=== PATIENT | female | born 1990 | race Caucasian/White ===

== ENCOUNTER 2023-08-27 16:46 | Emergency (ER) | payer OTHER, SELFPAY ==
[2023-08-27 17:02] VITALS: BP 110/79; PULSE 76; RESP 16; TEMP 36.8; O2SAT 100
--- NOTE | 2023-08-27 17:50 | ED.URI ---
HPI - URI/Sore Throat General Chief Complaint: Upper Respiratory Infection Stated Complaint: Sore Throat, Exposure to Strep Time Seen by Provider: 08/27/23 17:50 History of Present Illness HPI Narrative: 33-year-old female presented for complaint of sore throat, fatigue, nasal congestion. Onset 5 days. Endorses all kids have strep throat. She denies cough, shortness of breath, wheezing, nausea, vomiting, diarrhea, fevers or chills. Related Data Home Medications Medication Instructions Recorded Confirmed norethindrone 1 mg-ethinyl 1 tablet PO DAILY 08/27/23 08/27/23 estradiol 10 mcg (24)-iron 10 mcg(2) tablet (Lo Loestrin Fe) Allergies Allergy/AdvReac Type Severity Reaction Status Date / Time No Known Drug Allergies Allergy Unknown Other Verified 08/27/23 17:09 Review of Systems Review of Systems: CONSTITUTIONAL: Denies body aches, fever, chills, or sweats. EYES: Denies visual changes, redness, or discharge. ENT: Reports rhinorrhea, congestion, sore throat CARDIOVASCULAR: Denies chest pain, palpitations, or edema. RESPIRATORY: Denies dyspnea. GASTROINTESTINAL: Denies abdominal pain, nausea, vomiting, or diarrhea. SKIN: Denies rash, itching, or wounds. MUSCULOSKELETAL: Denies back pain, joint pain, or myalgia. NEUROLOGIC: Denies headache PMFSH Past Medical History Medical History (Updated 08/27/23 @ 17:56 by Larissa Hess APRN) POTS (postural orthostatic tachycardia syndrome) Exam Narrative: GENERAL: well-appearing, no acute distress. EYES: conjunctivae clear ENT: Mucous membranes moist. TMs pearly strickland with normal light reflex bilaterally; no tragal tenderness. Oropharynx erythematous without lesions. Tonsils absent. No drooling, no hoarseness, no trismus, uvula midline. No tripod positioning, hot potato voice, or soft palate swelling. NECK: Supple. No lymphadenopathy CHEST: Clear to auscultation, breath sounds equal. No respiratory distress, speaks in full sentences. HEART: Regular rate and rhythm. No murmur heard. SKIN: Warm, dry, no rash. NEURO: Alert and oriented x3. Course Course Emergency Course: Patient is aware of diagnosis, understands and agrees to treatment plan. Anticipatory guidance given. Patient agrees to follow-up as directed and is aware of reasons to seek care at the emergency department. Portions of this record may have been created with voice recognition software Level of Care: Express Care Visit Vital Signs Vital signs: Vital Signs Temperature 98.3 F 08/27/23 17:02 Pulse Rate 76 08/27/23 17:02 Respiratory Rate 16 08/27/23 17:02 Blood Pressure 110/79 08/27/23 17:02 Pulse Oximetry 100 08/27/23 17:02 Temperature 98.3 F 08/27/23 17:02 Pulse Rate 76 08/27/23 17:02 Respiratory Rate 16 08/27/23 17:02 Blood Pressure 110/79 08/27/23 17:02 Pulse Oximetry 100 08/27/23 17:02 Oxygen Delivery Room Air 08/27/23 17:06 MDM - URI/Sore Throat MDM Narrative Medical decision making narrative: NEG strep result reviewed with pt. Advise supportive treatments. Patient is appropriate for outpatient treatment and follow-up. Differential Diagnosis Differential diagnosis: Likely upper respiratory infection, viral infection and pharyngitis Lab Data Labs: Influenza A Screen Negative Reference Range: Negative Influenza B Screen Negative Reference Range: Negative Strep Screen Presumptive Negative *(Reference Range: Negative)* Discharge Plan Discharge Clinical Impression: Viral infection Patient Disposition: Home, Self-Care Condition: Stable Instructions: Antibiotic Form, Upper Respiratory Infection (ED) Additional Instructions: Rapid strep swab was negative today You will be notified in a few days if the culture comes back posi
== END 2023-08-27 17:58 | disposition home or self-care (01) ==
PROVIDERS: Emergency Provider Nurse Practitioner Family; PCP Physician Assistant
DX: B34.9 Viral infection, unspecified (principal); Z20.822 Contact with and (suspected) exposure to COVID-19
CPT/HCPCS: 87081; 87426; 87804; 87880; 99203; C9803; G0463

== ENCOUNTER → 2023-09-08 08:49 | Outpatient (CLI) | payer OTHER, SELFPAY ==
--- NOTE | ~2023-09-08 | US_ITS ---
Pelvic ultrasound. Clinical History: Pelvic pain Technique: Realtime transabdominal and transvaginal scanning of the pelvis was performed. Color flow Doppler and Doppler spectral analysis were performed. Findings: The uterus is retroverted.. The endometrial stripe has a thickness of 3 mm. No focal mass is identified. The right ovary measures 3.3 x 2.3 x 3.1 cm. No significant right ovarian or adnexal mass is seen. The left ovary measures 2.6 x 1.8 x 2.5 cm. No significant left ovarian or adnexal mass is seen. There is no evidence of free fluid in the cul de sac. Impression: Unremarkable pelvic ultrasound. Reviewed, dictated and finalized at location . [employer] Impression: Unremarkable pelvic ultrasound.
== END ==
PROVIDERS: PCP Advanced Practice Midwife; Visit Provider Advanced Practice Midwife
DX: R10.2 Pelvic and perineal pain (principal)
CPT/HCPCS: 76830; 76856

== ENCOUNTER 2023-11-23 12:11 | Emergency (ER) | payer OTHER, SELFPAY ==
[2023-11-23 12:21] VITALS: BP 111/80; PULSE 73; RESP 16; TEMP 37.3; O2SAT 99
--- NOTE | 2023-11-23 12:21 | ED.EYEPROB ---
HPI - Eye Problem General Chief complaint: Eye Problems Stated complaint: EYE REDNESS/PAIN Source: patient, RN notes reviewed and old records reviewed Mode of arrival: ambulatory Limitations: no limitations History of Present Illness HPI Narrative: 33-year-old female presents to [facility] with complaints right eye irritation, redness, watering, light sensitive this started yesterday after removing contact. Patient states feels like something is in eye. Patient denies visual changes. Related Data Home Medications Medication Instructions Recorded Confirmed norethindrone 1 mg-ethinyl 1 tablet PO DAILY 11/23/23 11/23/23 estradiol 10 mcg (24)-iron 10 mcg(2) tablet (Lo Loestrin Fe) Allergies Allergy/AdvReac Type Severity Reaction Status Date / Time No Known Drug Allergies Allergy Unknown Other Verified 11/23/23 12:20 Review of Systems Constitutional: Constitutional: Reports no additional constitutional complaints, Denies body ache(s), Denies chills, Denies fatigue, Denies fever(s) and Denies headache(s) Eyes: Eyes: Reports no additional eye complaints, Denies blurry vision, Denies exophthalmos, Denies change in vision, Denies decreased night vision, Denies diplopia, Denies eye discharge, Reports irritation, Denies loss of peripheral vision, Reports eye pain and Reports requires corrective lenses ENT: Reports system reviewed and no additional complaints, except as documented, Denies vertigo, Denies dizziness, Denies ear discharge, Denies otalgia, Denies facial pain, Denies headache(s), Denies nasal congestion, Denies nasal discharge, Denies sinus pain, Denies sinus pressure and Denies sore throat Cardiovascular: Cardiovascular: Reports no additional cardiovascular complaints, Denies chest pain, Denies chest pain at rest, Denies rapid heart rate and Denies dyspnea Respiratory: Respiratory: Reports no additional respiratory complaints, Denies chest congestion, Denies cough, Denies pain on inspiration, Denies pain with cough and Denies dyspnea Gastrointestinal: Gastrointestinal: Denies abdominal pain, Denies diarrhea, Denies nausea and Denies vomiting Integumentary/Breasts: Skin/Breast: Denies rash Neurologic: Reports system reviewed and no additional complaints, except as documented, Denies vertigo, Denies dizziness and Denies headache(s) Endocrine: Endocrine: Denies fatigue [facility] Past Medical History Medical History (Updated 11/23/23 @ 12:34 by Sherry Sam APRN) POTS (postural orthostatic tachycardia syndrome) Comments At the time of my signature, I reviewed and agree with the nursing past medical, surgical, social, and family history. There is no relevant family history pertinent to the patient complaint. Exam Const: General: cooperative, healthy appearing, no acute distress and well nourished Nutritional Appearance: well nourished Orientation/consciousness: patient oriented x3 Limitations: no limitations HENMT: Head: normal to inspection and normocephalic Ears: external ears normal Face/Nose/Sinus: normal facial exam Face and sinus: normal facial exam Mouth: Yes Normal oral and palatal mucosa present, Yes oropharynx normal and Yes moist mucous membranes Eyes: Alignment and Position: alignment normal Periorbital: periorbital findings normal Eyelids: eyelids normal Conjunctivae: conjunctival abnormality right ( Erythematous) Sclera: sclerae normal Cornea: corneas abnormal on the right abrasion central and fluorescein used Pupils: Equal, round and reactive pupils present Resp: Effort & Inspection: normal respiratory effort, able to speak in complete sentences, no audible wheezes, no cough, no respiratory distress and no retractions Auscultation: clear to auscultation bilaterally, no crackles, no rales, no rhonchi and no wheezes Cardio: Rate: regular rate Rhythm: regular rhythm Skin: General skin exam: normal color and no rashes or lesions noted Neuro: General: patient oriented x3 Cranial
[2023-11-23] MEDS: TETRACAINE HCL 0.5% OPHTH SOLN 4 ML BTL 1 DROP AFFCTD EYE (12:25)
== END 2023-11-23 12:40 | disposition home or self-care (01) ==
PROVIDERS: Emergency Provider Registered Nurse; PCP Physician Assistant
DX: S05.01XA Injury of conjunctiva and corneal abrasion without foreign body, right eye, initial encounter (principal); X58.XXXA Exposure to other specified factors, initial encounter
CPT/HCPCS: 99213; A9270; G0463

== ENCOUNTER 2023-12-05 09:08 | Emergency (ER) | payer SELFPAY ==
--- NOTE | 2023-12-05 09:12 | ED.URI ---
HPI - URI/Sore Throat General Chief Complaint: Upper Respiratory Infection Stated Complaint: Fever/Sore Throat Time Seen by Provider: 12/05/23 09:12 Source: patient, RN notes reviewed and old records reviewed Mode of arrival: ambulatory Limitations: no limitations History of Present Illness HPI Narrative: 33-year-old female to Express Care for complaint headache, body aches, subjective fever, sore throat, and ausea that began yesterday. Patient denies vomiting, diarrhea, ear pain. Patient denies pertinent medical history. Patient able to tolerate fluids by mouth. Related Data Home Medications Medication Instructions Recorded Confirmed norethindrone 1 mg-ethinyl 1 tablet PO DAILY 11/23/23 12/05/23 estradiol 10 mcg (24)-iron 10 mcg(2) tablet (Lo Loestrin Fe) Allergies Allergy/AdvReac Type Severity Reaction Status Date / Time ofloxacin Allergy Itching Verified 12/05/23 09:18 Review of Systems Review of Systems: All systems reviewed & are unremarkable except as noted in HPI and below Constitutional: Constitutional: Reports as per HPI, Reports difficulty sleeping and Reports fever(s) ( Subjective) Eyes: Eyes: Reports no additional eye complaints ENT: Reports as per HPI and Reports sore throat Cardiovascular: Cardiovascular: Reports no additional cardiovascular complaints, Denies chest pain and Denies dyspnea Respiratory: Respiratory: Reports no additional respiratory complaints, Denies cough and Denies dyspnea Gastrointestinal: Gastrointestinal: Reports nausea Musculoskeletal: Musculoskeletal: Reports as per HPI and Reports myalgias Neurologic: Reports system reviewed and no additional complaints, except as documented Psychiatric: Psychiatric: Reports no additional psychiatric complaints PMFSH Past Medical History Medical History POTS (postural orthostatic tachycardia syndrome) Comments At the time of my signature, I reviewed and agree with the nursing past medical, surgical, social, and family history. There is no relevant family history pertinent to the patient complaint. Exam Const: General: cooperative, no acute distress, well developed, alert, ill appearing, well groomed and well nourished Nutritional Appearance: well nourished Orientation/consciousness: patient oriented x3 Limitations: no limitations HENMT: Head: normal to inspection Ears: external ears normal Face/Nose/Sinus: Normal external nose present, Normal nares present, normal facial exam, No erythema and No edema Face and sinus: normal facial exam, no erythema and no edema Mouth: Yes Normal oral and palatal mucosa present Throat: posterior oropharynx abnormal erythema and no uvular edema Eyes: General: appearance normal, both eyes and all related structures Neck: Neck: normal visual inspection, full ROM and no meningeal signs Lymphatic: no lymphadenopathy noted and no lymphedema noted Chest: Chest palpation & inspection: normal inspection of the chest Resp: Effort & Inspection: normal respiratory effort and able to speak in complete sentences Auscultation: clear to auscultation bilaterally Cardio: Jugular venous distension: no JVD Rate: regular rate Rhythm: regular rhythm Back/Spine/Pelvis: Cervical Spine: cervical ROM normal Skin: General skin exam: normal color, no rashes or lesions noted and turgor normal Neuro: General: patient oriented x3, gait normal, moves all extremities and no meningeal signs Speech: normal speech Gait exam (Neuro): Normal gait present Extrem: General: normal to inspection, full ROM and capillary refill normal Psych: Appearance: grossly normal and well kempt Course Course Emergency Course: Some parts of this dictation were generated by voice recognition software and may contain typographical and/or grammatical inaccuracies. Level of Care: Express Care Visit Vital Signs Vital signs: Vital Signs Temperature 36.9 C
[2023-12-05 09:19] VITALS: BP 108/69; PULSE 70; RESP 16; TEMP 36.9; O2SAT 100
== END 2023-12-05 10:02 | disposition home or self-care (01) ==
PROVIDERS: Emergency Provider Nurse Practitioner Family; PCP Physician Assistant
DX: J06.9 Acute upper respiratory infection, unspecified (principal); Z20.822 Contact with and (suspected) exposure to COVID-19
CPT/HCPCS: 87081; 87426; 87804; 87880; 99213; G0463

== ENCOUNTER 2024-08-21 01:44 | Emergency (ER) | payer BC, SELFPAY ==
--- NOTE | ~2024-08-21 | CT_ITS ---
EXAMINATION: CT abdomen pelvis w con DATE: 08/21/2024 03:39 INDICATION: Generalized abdominal pain. TECHNIQUE: Computed tomography (CT) of the abdomen and pelvis was performed with 100 mL Omnipaque 350 intravenous contrast. Automated exposure control and iterative reconstruction technique were employe d. The dose-length product was 429.25 mGy-cm. COMPARISON: CT abdomen and pelvis 02/22/2010 FINDINGS: The visualized portions of the lung bases demonstrate minimal atelectasis on the right. No pleural effusion. The heart size is normal. No pericardial effusion. The liver, gallbladder, spleen, pancreas, and adrenal glands are normal. There are cysts in the kidneys measuring up to 10 mm on the right. There is a 3.2 cm cyst in left ovary. There are no dilated loops of bowel. The appendix is nor mal. There are no pathologically enlarged lymph nodes. There is no free intraperitoneal fluid. The ruba jose ernique are unremarkable. IMPRESSION: 1. 3.2 cm cyst in left ovary, likely a follicular cyst. Reviewed, dictated and finalized at location A. T LEASER
[2024-08-21 01:52] VITALS: BP 106/58; PULSE 66; RESP 18; TEMP 36.5; O2SAT 100
[2024-08-21 02:36] LABS: Basophils Percent Auto 0.2 % (0.2-1.2); Eosinophils Absolute Auto 0.1 K/mm3 (0-0.3); Eosinophils Percent Auto 1.3 % (0-4.4); Hematocrit 36.2 % (37.0-47.0); Hemoglobin 12.6 g/dL (12.0-15.0); Immature Granulocyte Absolute 0.03 K/mm3 (0.00-0.031); Immature Granulocyte Percent A 0.3 % (0-0.5); Lymphocytes Percent Auto 21.6 % (18.3-44.2); Mean Corpuscular HGB Conc 34.8 g/dl (32-36); Mean Corpuscular Hemoglobin 32.2 pg (26-34); Mean Corpuscular Volume 92.6 fl (80-100); Mean Platelet Volume 9.6 fl (7.4-10.4); Monocytes Absolute Auto 0.7 K/mm3 (0.1-0.6); Monocytes Percent Auto 6.9 % (2.6-8.5); Neutrophils Absolute Auto 7.4 K/mm3 (1.3-6.7); Neutrophils Percent Auto 69.7 % (45.5-73.1); Platelet Count Result 230 k/mm3 (150-375); Red Blood Count 3.91 M/mm3 (4.2-5.4); Red Cell Distribution Width 11.7 % (11.5-14.5); White Blood Count 10.7 K/mm3 (4.5-10.0)
[2024-08-21 02:48] LABS: Alanine Aminotransferase 15 U/L (6-35); Albumin Level 3.9 g/dL (3.5-5.1); Alkaline Phosphatase 45 U/L (38-126); Anion Gap 5 mmol/L (4-12); Aspartate Amino Transferase 22 U/L (14-36); Bilirubin,Total 0.5 mg/dL (0.2-1.3); Blood Urea Nitrogen 8 mg/dL (7-17); Calcium 8.6 mg/dL (8.4-10.2); Carbon Dioxide 24 mmol/L (22-30); Chloride 106 mmol/L (98-107); Estimated CRCL calculation 101 ml/min; Estimated Glomerular Filt Rate > 60; Glucose 100 mg/dL (65-110); Lipase 76 U/L (23-300); Potassium 3.7 mmol/L (3.4-5.0); Sodium 135 mmol/L (137-145)
[2024-08-21] MEDS: SODIUM CHLORIDE 0.9% IV 2,000 ML 999 ML IV CONT (03:09)
[2024-08-21] MEDS: KETOROLAC 15 MG/ML VIAL (*BKC) IV PUSH (03:10)
[2024-08-21] MEDS: DICYCLOMINE HCL INJ 20 MG/2 ML VIAL IM (03:10)
[2024-08-21 03:15] LABS: BEDSIDEPREGUCG Negative (Negative)
--- NOTE | 2024-08-21 03:19 | ED.GENADULT ---
HPI - General Adult General Chief complaint: Abdominal Pain Stated complaint: Severe abd pain Time Seen by Provider: 08/21/24 02:04 History of Present Illness HPI narrative: This is a 34-year-old female with history of POTS presenting with abdominal pain. Patient says that last night. she started developed which she describes as severe gas pains. She feels sharp pain that moves around her stomach. She has not been able have a bowel movement or passed gas in the last 24 hours. No history of small-bowel obstructions. No nausea or vomiting. No abdominal surgeries in the past. Last bowel movement was morning. Related Data Home Medications ?Medication ?Instructions ?Recorded ?Confirmed ?Last Taken ?Type norethindrone 1 mg-ethinyl 1 tablet PO DAILY 11/23/23 12/05/23 Unknown History estradiol 10 mcg (24)-iron 10 mcg(2) tablet (Lo Loestrin Fe) Allergies Allergy/AdvReac Type Severity Reaction Status Date / Time Gadolinium-Containing Allergy Hives Verified 08/21/24 01:57 Contrast Medi ofloxacin Allergy Itching Verified 08/21/24 01:57 [facility] Past Medical History Medical History POTS (postural orthostatic tachycardia syndrome) Exam Narrative: APPEARANCE: No apparent distress. Head: atraumatic. EYES: EOMI, NOSE: Atraumatic NECK: Trachea midline RESPIRATORY: No increased rate of breathing, CTAB CARDIOVASCULAR: RRR, ABDOMINAL: Diffuse abdominal tenderness, soft no guarding rebound, no cva tenderness MUSCULOSKELETAl: No obvious deformities NEURO: Alert. Moving 4/4 extremities SKIN:: Warm, dry. Normal color PSYCHIATRIC: Normal affect Course Vital Signs Vital signs: Vital Signs Temperature 97.7 F 08/21/24 01:52 Pulse Rate 66 08/21/24 01:52 Respiratory Rate 18 08/21/24 01:52 Blood Pressure 106/58 L 08/21/24 01:52 Pulse Oximetry 100 08/21/24 01:52 Oxygen Delivery Room Air 08/21/24 01:52 Temperature 97.7 F 08/21/24 01:52 Pulse Rate 66 08/21/24 01:52 Respiratory Rate 18 08/21/24 01:52 Blood Pressure 106/58 L 08/21/24 01:52 Pulse Oximetry 100 08/21/24 01:52 Oxygen Delivery Room Air 08/21/24 01:52 Medical Decision Making [facility] Narrative Medical decision making narrative: -Course: 34-year-old female presenting with 1 day of diffuse abdominal pain. Laboratory studies within normal limits. Vital signs stable. Abdomen is soft although she notes diffuse tenderness CT showed no evidence of a bowel obstruction, normal appendix and a left ovarian cyst. UTI is indicative infection and patient notes she has had dysuria. Patient will be discharged on MiraLax for constipation and Keflex for UTI. On re-evaluation the patient was sleeping. Patient notes she still has some abdominal discomfort and was offered pain medication but declined. Patient will be discharged with primary care follow-up and given return precautions for severe abdominal pain, abdominal distension fevers or inability to have bowel movement or pass gas. -DDX includes but is not limited to: Constipation, small-bowel obstruction, IBS -Co-morbidities complicating care: POTS -Independent interpretation of studies: labs are normal -Interventions:Normal saline, Toradol, Bentyl -Shared decision making / Disposition: Discharge -RX MiraLax, Keflex Vital Signs Vital Signs: Vital Signs Temperature 97.7 F 08/21/24 01:52 Pulse Rate 66 08/21/24 01:52 Respiratory Rate 18 08/21/24 01:52 Blood Pressure 106/58 L 08/21/24 01:52 Pulse Oximetry 100 08/21/24 01:52 Oxygen Delivery Room Air 08/21/24 01:52 Temperature 97.7 F 08/21/24 01:52 Pulse Rate 66 08/21/24 01:52 Respiratory Rate 18 08/21/24 01:52 Blood Pressure 106/58 L 08/21/24 01:52 Pulse Oximetry 100 08/21/24 01:52 Oxygen Delivery Room Air 08/21/24 01:52 Lab Data 08/21/24 02:30 08/21/24 02:30 Labs: Lab Results 08/21/24 08/21/24 08/21/24 Range/Units 02:30 03:13 03:13 WBC 10.7 H (4.5-10.0) K/mm3 RBC 3.91 L (4.2-5.4) M/mm3 Hgb 12.6 (12.0-15.0) g/dL Hct 36.2 L (37.0-47.0) % MCV 92.6 (80-100) fl MCH 32.2 (26-34) pg MCHC 34.8 (32-36) g/dl RDW 11.7 (11.5-14.5) % Plt Count 230 (150-375) k/mm3 MPV 9.6 (7.4-10.4) fl Immature Gran % (Auto) 0.3 (0-0.5) % Neut % (Auto) 69.7 (45.5-73.1) % Lymph % (Auto) 21.6 (18.3-44.2) % Borden % (Auto) 6.9 (2.6-8.5) % Eos % (Auto) 1.3 (0-4.4) % Baso % (Auto) 0.2 (0.2-1.2) % Lymph # (Auto) 2.30 (0.9-3.2) K/mm3 Borden # (Auto) 0.7 H (0.1-0.6) K/mm3 Eos # (Auto) 0.1 (0-0.3) K/mm3 Baso # (Auto) 0.0 (0.0-0.1) K/mm3 Abs Immat Gran (auto) 0.03 (0.00-0.031) K/mm3 Absolute Neuts (auto) 7.4 H (1.3-6.7) K/mm3 Absolute Nucleated RBC 0.000 (0.0-0.012) K/mm3 Nucleated RBC % 0.0 (0.0-0.2) % Sodium 135 L (137-145) mmol/L Potassium 3.7 (3.4-5.0) mmol/L Chloride 106 (98-107) mmol/L Carbon Dioxide 24 (22-30) mmol/L Anion Gap 5 (4-12) mmol/L BUN 8 (7-17) mg/dL Creatinine 0.70 (0.7-1.0) mg/dL Estim Creat Clear Calc 101 ml/min Estimated GFR > 60 (59 - ) Glucose 100 (65-110) mg/dL Calcium 8.6 (8.4-10.2) mg/dL Total Bilirubin 0.5 (0.2-1.3) mg/dL AST 22 (14-36) U/L ALT 15 (6-35) U/L Alkaline Phosphatase 45 (38-126) U/L Total Protein 7.0 (6.3-8.2) g/dL Albumin 3.9 (3.5-5.1) g/dL Lipase 76 (23-300) U/L Urine Color Yellow (Yellow) Urine Appearance Cloudy H (Clear) Urine pH 6.5 (5.0-9.0) Ur Specific [place] 1.016 (1.001-1.035) Urine Protein Negative (Negative) mg/dL Urine Glucose (UA) Negative (Negative) mg/dL Urine Ketones 1+ H (Negative) mg/dL Ur Blood (Man) Negative (Negative) Urine Nitrate Negative (Negative) Urine Bilirubin Negative (Negative) Urine Urobilinogen 0.2 (<2.0) mg/dL Add Ur Microanalysis Reviewed Leukocyte Esterase Rfl 2+ H (Negative) THERESE/UL Urine RBC 6-10 H (0-2) /hpf Urine WBC 21-50 H (0-3) /hpf Ur Squamous Epith Cells Few (Few) /hpf Urine Bacteria 1+ H /hpf Urine Casts 3-5 Urine Mucus Present /lpf POC Urine HCG, Qual Negative Negative (Negative) Discharge Plan Discharge Clinical Impression: Constipation Patient Disposition: Home, Self-Care Condition: Stable Instructions: Antibiotic Form, Abdominal Pain (ED) Additional Instructions: You were seen in the emergency department for abdominal pain. Your CT abdomen pelvis did not show a small bowel obstruction at this time. Please trial a course of MiraLax. You can also use [id number] suppositories or enemas if needed. You have a UTI. Please complete a course of Keflex. If you develop fevers, abdominal distension, nausea vomiting or severe abdominal pain please return to the ED for re-evaluation. Patient Language: Malaysian Prescriptions: New cephalexin 500 mg capsule 500 mg PO Q12H Qty: 10 0RF polyethylene glycol 3350 [Miralax] 17 gram/dose powder 17 g PO DAILY Qty: 119 0RF No Action Lo Loestrin Fe 1 mg-10 mcg (24)/10 mcg (2) tablet 1 tablet PO DAILY Follow-up/Referrals: UNKNOWN,DOCTOR [Primary Care Provider] -
[2024-08-21 03:33] LABS: Add Urine Microscopic? YES; Appearance Urine Cloudy (Clear); Bacteria Urine 1+ /hpf; Bilirubin Urine Negative (Negative); Blood Urine Negative (Negative); Color Urine Yellow (Yellow); Glucose Urine UA Negative (Negative); Ketones Urine 1+ mg/dL (Negative); Leukocyte Esterase Ur 2+ LEU/UL (Negative); Mucus Urine Present /lpf; Need Manual Microscopic Reviewed; Nitrate Urine Negative (Negative); Protein Urine Negative (Negative); Specific Grav Ur 1.016 (1.001-1.035); Squamous Epithelial Cell Urine Few /hpf (Few); Urobilinogen Urine 0.2 mg/dL (<2.0); WBC Urine 21-50 /hpf (0-3); pH Urine 6.5 (5.0-9.0)
[2024-08-21 05:51] VITALS: BP 100/56; PULSE 70; RESP 18; O2SAT 100
--- OUTSIDE RECORDS SUMMARY | 2024-08-28 02:23 | XMS_ITS | Clinical Summary ---
Author Organization [facility] [email or web address] Address [address] [place] [address] Care Team Providers Care Fitting Room Maintenance Mechanic Name Role Phone Unknown, Provider Unavailable Unavailable Julia Quiles MD Unavailable [phone] Catie Cosme Primary Care Provider [phone] Source Comments [facility],non-owned Affiliates and Associated Physician Practices is amultiple site organization consisting of ambulatory clinics and hospital sitesin [place], [place], [place] and [place]. This disclosure is being madepursuant to the Care Everywhere program and may not contain all information available regarding this patient. Last updated 18.[facility] Allergies Active Allergy Reactions Criticality Noted Date Comments Contrast-Gadolinium Agents For Mri Urticaria,Itching,Ra sh Medium 03/01/2023 Pt received Prohance 16ml. Itchy throat, rash, and hives developed within a few minutes. Dr Hairston examined patient. Patient held for 30 minutes, no worsening symptoms. 06/06/23-pt completed MRI/MRA Brain & Neck w/wo using Mulithance MRI contast- premedicated 13 hour regimen successfully with no issues Pt received Prohance 16ml. Itchy throat, rash, and hives developed within a few minutes. Dr Hairston examined patient. Patient held for 30 minutes, no worsening symptoms. 06/06/23-pt completed MRI/MRA Brain & Neck w/wo using Mulithance MRI contast- premedicated 13 hour regimen successfully with no issues Pt received Prohance 16ml. Itchy throat, rash, and hives developed within a few minutes. Dr Hairston examined patient. Patient held for 30 minutes, no worsening symptoms. 06/06/23-pt completed MRI/MRA Brain & Neck w/wo using Mulithance MRI contast- premedicated 13 hour regimen successfully with no issues Ofloxacin Other 04/06/2024 Hives Medications * Be aware that medications may not be up to date on this document. Alwaysverify current medications with the patient. Medication Sig Dispensed Refills Start Date End Date Status Multiple Minerals-Vitamins (CALCIUM & VIT D3 BONE HEALTH PO) Take by mouth once daily Active Lo Loestrin Fe 1 MG-10 MCG / 10 MCG tablet Take 1 (one) tablet by mouth once daily Active multivitamin daily tablet Take 1 (one) tablet by mouth daily with food Active propranolol (Inderal) 10 MG tablet Take 1 (one) tablet by mouth 2 times daily 120 tablet 5 04/06/2024 Active predniSONE (Deltasone) 20 MG tablet Take 2 tablets by mouth 1 day prior to procedure and 2 tablets day of procedure 4 tablet 04/28/2024 Active Active Problems Problem Noted Date Diagnosed Date H/O seasonal allergies 04/06/2024 COVID-19 09/01/2020 Overview (04/06/2024): Spring 2020,01/2023 Family History Medical History Relation Name Comments Other Brother Childhood RA,An emia in his teens,Long Covid, Other Father Thyroid disease ,Asthma,Fibromyalgia, Other Mother HTN, Other Sister Heart failure a fter a viral infection, Relation Name Status Comments Brother Alive Father Alive Mother Alive Sister Social History Tobacco Use Types Packs/Day Years Used Date Smoking Tobacco: Never Smokeless Tobacco: Never Tobacco Cessation:Counseling Given: Not Answered Alcohol Use Standard Drinks/Week Comments Never 0 (1 standard drink = 0.6 oz pur e alcohol) Sex and Gender Information Value Date Recorded Sex Assigned at Not on file Gender Identity Not on file Sexual Orientation Not on file Last Filed Vital Signs Vital Sign Reading Time Taken Comments Blood Pressure 124/75 04/06/2024 9:42 AM CDT Pulse 81 04/06/2024 9:42 AM CDT Temperature 37.1 ??C (98.8 ??F) 10/05/2018 5:59 PM CS T Respiratory Rate 16 10/05/2018 5:59 PM RESEARCH DIRECTOR Oxygen Saturation 98% 10/05/2018 5:59 PM RESEARCH DIRECTOR Inhaled Oxygen Concentration - - Weight 72.6 kg (160 lb) 04/06/2024 9:42 AM CDT Height 175.3 cm (5' 9 ) 04/06/2024 9:42 AM CDT Body Mass Index 23.63 04/06/2024 9:42 AM CDT Plan of Treatment Upcoming Encounters Date Type Department Care Team (Late st Contact Info) Description 10/07/2024 10:40 AM RESEARCH DIRECTOR Office Visit [facility] Health Neurosciences [address] [place] [id number] Julia Quiles MD [address] [place] [phone] Health Maintenance Due Date Last Done Comments PAP SMEAR 1989 PNEUMOCOCCAL VACCINE (1 of 2 - PCV) 1995 HIV SCREENING 2004 HEPATITIS C SCREENING 04/01/2007 DTAP/TDAP/TD VACCINES (1 - Tdap) 2008 HEPATITIS B VACCINE (1 of 3 - 19+ 3-dose series) 2008 DEPRESSION SCREENING 09/01/2023 COVID-19 VACCINE (1 - 2023-2 5 season) 2024 INFLUENZA VACCINE (#1) 2024 , 07/05/2016 ZOSTER VACCINE (1 of 2) 2039 HIB VACCINE Aged Out No longer eligi ble based on patient's age to complete this topic HPV VACCINE Aged Out No longer eligi ble based on patient's age to complete this topic MENINGOCOCCAL VACCINE Aged Out No marce aneudy eligible based on patient's age to complete this topic Care Teams Fitting Room Maintenance Mechanic Relationship Specialty Start Date End Date aBCatie [address] [place] [phone] PCP - General 05/19/24 Unknown, Provider 10/19/16 Julia Quiles MD [address] [place] [address] [place], [place] [address] Neurology 03/29/24
--- OUTSIDE RECORDS SUMMARY | 2024-08-28 02:24 | XMS_ITS | Encounter Summary ---
Author Organization [facility] Address [address] [facility] [place] [address] Care Team Providers Care Quality Control Industrial Engineer Name Role Phone Unknown, Provider Primary Care Provider Unavaila ble Unknown, Provider Unavailable Unavailable Reason for Referral * Consultation (Routine) - Closed Specialty Diagnoses / Procedures Referred By Contac t Referred To Contact Neuroscience Diagnoses POTS (postural orthostatic tachycardia syndrome) Jake Velez MD [address] [place] [address] Julia Quiles MD [address] [place] [address] Referral ID Status Reason Start Date Expiration Date V isits Requested Visits Authorized [id number] Closed Specialty Services Required 05/14/2023 05/13/2024 1 1 Encounter Details Date Type Department Care Team (Late st Contact Info) Description 05/14/2023 Orders Only [facility] Neurosciences [address] [facility] [address] [place] [address] Sara Keyes POTS (postural orthostatic tachycardia syndrome) Social History Tobacco Use Types Packs/Day Years Used Date Smoking Tobacco: Never Smokeless Tobacco: Never Sex and Gender Information Value Date Recorded Sex Assigned at Not on file Gender Identity Not on file Sexual Orientation Not on file documented as of this encounter Plan of Treatment Upcoming Encounters Date Type Department Care Team (Late st Contact Info) Description 10/07/2024 10:40 AM WHITEPRINTING MACHINE OPERATOR Office Visit [facility] Health Neurosciences [address] [place] [phone] Julia Quiles MD [address] [place] [phone] Scheduled Referrals Name Type Priority Associated Diagnoses Orde r Schedule [facility] Neurology @ [facility] Kay Quiles Outpatient Referral Routine POTS (postural orthostatic tachycardia syndrome) 1 Occurrences starting 05/14/2023 until 05/13/2024 documented as of this encounter Visit Diagnoses Diagnosis POTS (postural orthostatic tachycardia syndrome)- Primary Tachycardia, unspecified documented in this encounter Care Teams Quality Control Industrial Engineer Relationship Specialty Start Date End Date Unknown, Provider PCP - General 10/19/16 05/18/24 Unknown, Provider 10/19/16 documented as of this encounter
--- OUTSIDE RECORDS SUMMARY | 2024-08-28 02:24 | XMS_ITS | Encounter Summary ---
Author Organization [facility] Health Address [address] [facility] [place] [address] Care Team Providers Care Solvent Mixer Name Role Phone Unknown, Provider Unavailable Unavailable Julia Quiles MD Unavailable Catie Cosme Primary Care Provider [phone] Reason for Visit * Radiology Services (Routine) - Closed Specialty Diagnoses / Procedures Referred By Contac t Referred To Contact MRI Diagnoses POTS (postural orthostatic tachycardia syndrome) Generalized hypermobility of joints Vestibular migraine CSF leak Procedures MRI Brain Wwo Contrast Julia Quiles MD [address] [facility] [address] [place] [address] Referral ID Status Reason Start Date Expiration Date Visits Re quested Visits Authorized [id number] Closed 05/07/2024 06/05/2024 1 1 Encounter Details Date Type Department Care Team (Latest Contact Info) Description 05/19/2024 1:41 PM CDT - 05/19/2024 11:59 PM CDT Hospital Encounter [facility] Health Imaging Services - MRI [address] [facility] [place] [address] Julia Quiles MD [address] [place] [address] Discharge Disposition: Home or Self Care Social History Tobacco Use Types Packs/Day Years Used Date Smoking Tobacco: Never Smokeless Tobacco: Never Alcohol Use Standard Drinks/Week Comments Never 0 (1 standard drink = 0.6 oz pur e alcohol) Sex and Gender Information Value Date Recorded Sex Assigned at Not on file Gender Identity Not on file Sexual Orientation Not on file documented as of this encounter Medications at Time of Discharge Medication Sig Dispensed Refills Start Date End Date Lo Loestrin Fe 1 MG-10 MCG / 10 MCG tablet Take 1 (one) tablet by mouth once daily Multiple Minerals-Vitamins (CALCIUM & VIT D3 BONE HEALTH PO) Take by mouth once daily multivitamin daily tablet Take 1 (one) tablet by mouth daily with food predniSONE (Deltasone) 20 MG tablet Take 2 tablets by mouth 1 day prior to procedure and 2 tablets day of procedure 4 tablet 04/28/2024 propranolol (Inderal) 10 MG tablet Take 1 (one) tablet by mouth 2 times daily 120 tablet 5 04/06/2024 documented as of this encounter Plan of Treatment Upcoming Encounters Date Type Department Care Team (Late st Contact Info) Description 10/07/2024 10:40 AM GOVERNMENT AFFAIRS FELLOW Office Visit [facility] Neurosciences [address] [facility] [address] [place] [address] Julia Quiles MD [address] [place] [phone] documented as of this encounter Procedures Procedure Name Priority Date/Time Associated Diagnosis Comments MRI BRAIN WWO CONTRAST Routine 05/19/2024 4:50 PM CDT POTS (postural orthostatic tachycardia syndrome) Generalized hypermobility of joints Vestibular migraine CSF leak documented in this encounter Results * MRI Brain Wwo Contrast (05/19/2024 4:50 PM CDT) Anatomical Region Laterality Modality Head Magnetic Resonan ce 05/19/2024 4:58 PM CDT Impressions 05/20/2024 2:14 PM CDT IMPRESSION: Unremarkable MRI of the brain and cervical spine. Small disc herniations at T6-T7, T7-T8 and T8-T9 levels. No canal or foraminal narrowing seen. No evidence for CSF leak. Edited by Yolanda Diaz on 05/20/2024 8:09 AM > Interpreting Provider: Mayra Peng MD on 05/20/2024 2:14 PM Narrative 05/20/2024 2:14 PM CDT PROCEDURE: ??MRI CERVICAL SPINE WO CONTRAST, MRI BRAIN WWO CONTRAST, MRI THORACIC SPINE WO CONTRAST DATE/TIME OF EXAM: ??05/19/2024 4:45 PM CLINICAL INFORMATION: None relevant/not provided if blank. INDICATION: G90.A: Postural orthostatic tachycardia syndrome (POTS). M24.80: Other specific joint derangements of unspecified joint, not elsewhere classified. G43.809: Other migraine, not intractable, without status migrainosus. G96.00: Cerebrospinal fluid leak, unspecified. COMPARISON: None. TECHNIQUE: Multiplanar, multisequence magnetic resonance imaging of the brain performed with and without intravenous contrast. MRI of the cervical spine and thoracic spine was performed without contrast.. 15 mL of Dotarem is used as intravenous contrast. FINDINGS: MRI BRAIN: Brain parenchymal signal intensity is normal. Dudley-white matter differentiation is normal. No diffusion restriction to suggest acute infarct is seen. No evidence of hemorrhage is seen on gradient sequence. The ventricular system is normal in size and configuration. Midline structures are not displaced. No abnormal enhancement is seen. No mass or mass effect is seen. Vascular flow-voids are normal. The paranasal sinuses and mastoid air cells are aerated. The calvarium has normal marrow signal intensity. MRI CERVICAL SPINE: Straightening of the cervical spine. No marrow edema identified. Craniovertebral junction is intact. No cerebellar tonsillar herniation is seen. Cervical spinal cord demonstrates normal signal intensity on all sequences. Intervertebral disc spaces are maintained. No significant disc bulge or herniation seen. No foraminal or canal narrowing seen. No definite evidence for CSF leak in the current study. MRI THORACIC SPINE: Normal curvature of the thoracic spine is maintained. Vertebral body heights are maintained. No marrow edema identified. Conus terminates at L1. Thoracic spinal cord demonstrates normal signal intensity on all sequences. No significant epidural lipomatosis seen. No evidence for CSF leak seen. Small disc herniations at T6-T7, T7-T8, T8-T9 levels. No canal or foraminal narrowing seen. Procedure Note Mayra Peng MD - 05/20/2024 PROCEDURE: MRI CERVICAL SPINE WO CONTRAST, MRI BRAIN WWO CONTRAST, MRI THORACIC SPINE WO CONTRAST DATE/TIME OF EXAM: 05/19/2024 4:45 PM CLINICAL INFORMATION: None relevant/not provided if blank. INDICATION: G90.A: Postural orthostatic tachycardia syndrome (POTS). M24.80: Other specific joint derangements of unspecified joint, not elsewhere classified. G43.809: Other migraine, not intractable, without status migrainosus. G96.00: Cerebrospinal fluid leak, unspecified. COMPARISON: None. TECHNIQUE: Multiplanar, multisequence magnetic resonance imaging of the brain performed with and without intravenous contrast. MRI of the cervicalspine and thoracic spine was performed without contrast.. 15 mL of Dotarem is used as intravenous contrast. FINDINGS: MRI BRAIN: Brain parenchymal signal intensity is normal. Dudley-whitematter differentiation is normal. No diffusion restriction to suggest acute infarct is seen. No evidence of hemorrhage is seen on gradient sequence. The ventricular system is normal in size and configuration. Midline structures are not displaced. No abnormal enhancement is seen. No massor mass effect is seen. Vascular flow-voids are normal. The paranasal sinuses and mastoid aircells are aerated. The calvarium has normal marrow signal intensity. MRI CERVICAL SPINE: Straightening of the cervical spine. No marrow edema identified. Craniovertebral junction is intact. No cerebellar tonsillar herniation is seen. Cervical spinal cord demonstrates normal signal intensity on all sequences. Intervertebral disc spaces are maintained.No significant disc bulge or herniation seen. No foraminal or canalnarrowing seen. No definite evidence for CSF leak in the current study. MRI THORACIC SPINE: Normal curvature of the thoracic spine ismaintained. Vertebral body heights are maintained. No marrow edema identified. Conus terminates at L1. Thoracic spinal cord demonstrates normal signalintensity on all sequences. No significant epidural lipomatosis seen. No evidencefor CSF leak seen. Small disc herniations at T6-T7, T7-T8, T8-T9 levels. No canal or foraminal narrowing seen. IMPRESSION: Unremarkable MRI of the brain and cervical spine. Small disc herniationsat T6-T7, T7-T8 and T8-T9 levels. No canal or foraminal narrowing seen. No evidence for CSF leak. Edited by Yolanda Diaz on 05/20/2024 8:09 AM > Interpreting Provider: Mayra Peng MD on 05/20/2024 2:14 PM Julia Qiules MD MR ORDERABLES documented in this encounter Visit Diagnoses Diagnosis POTS (postural orthostatic tachycardia syndrome) Tachycardia, unspecified Generalized hypermobility of joints Other joint derangement, not elsewhere classified, multiple sites Vestibular migraine CSF leak Other specified disorder of nervous system documented in this encounter Administered Medications Inactive Administered Medications - up to 3 most recent administrations Medication Order MAR Action Action Date Dose Rate Site gadoterate meglumine (Dotarem/Clariscan) injection Intravenous, CONTRAST ONCE, Starting on Fri05/19/24 at 1622, Until Mildred 05/20/24 at 0132 $ Given - Contrast 05/19/2024 4:24 PM CDT 15 mL documented in this encounter Care Teams Solvent Mixer Relationship Specialty Start Date End Date Catie Cosme [address] [place] [address] PCP - General 05/19/24 Unknown, Provider 10/19/16 Julia Quiles MD [address] [facility] [address] [place], [place] [address] Neurology 03/29/24 documented as of this encounter
--- OUTSIDE RECORDS SUMMARY | 2024-08-28 02:24 | XMS_ITS | Encounter Summary ---
Author Organization [facility] Health Address [address] [place] [address] Care Team Providers Care Non Destructive Tester Name Role Phone Unknown, Provider Unavailable Unavailable Julia Quiles MD Unavailable Catie Cosme Primary Care Provider Reason for Referral * Radiology Services (Routine) - Closed Specialty Diagnoses / Procedures Referred By Contac t Referred To Contact MRI Diagnoses POTS (postural orthostatic tachycardia syndrome) Generalized hypermobility of joints Vestibular migraine CSF leak Procedures MRI Lumbar Spine Wo Contrast Julia Quiles MD [address] [place] [address] Referral ID Status Reason Start Date Expiration Date Visits Re quested Visits Authorized [id number] Closed 05/07/2024 06/05/2024 1 1 Reason for Visit * Radiology Services (Routine) - Closed Specialty Diagnoses / Procedures Referred By Contac t Referred To Contact MRI Diagnoses POTS (postural orthostatic tachycardia syndrome) Generalized hypermobility of joints Vestibular migraine CSF leak Procedures MRI Cervical Spine Wo Contrast Julia Quiles MD [address] [place] [address] Referral ID Status Reason Start Date Expiration Date Visits Re quested Visits Authorized [id number] Closed 05/07/2024 06/05/2024 1 1 Encounter Details Date Type Department Care Team (Latest Contact Info) Description 05/19/2024 1:41 PM CDT - 05/19/2024 11:59 PM CDT Hospital Encounter [facility] Imaging Services - MRI [address] [facility] [place] [address] Julia Quiles MD [address] [place] [phone] Discharge Disposition: Home or Self Care Social [...] 5 04/06/2024 documented as of this encounter Progress Notes * Julia Quiles MD - 05/19/2024 11:59 PM CDT Nl plhk documented in this encounter Plan of Treatment Upcoming Encounters Date Type Department Care Team (Late st Contact Info) Description 10/07/2024 10:40 AM TRAFFIC OFFICER Office Visit [facility] Health Neurosciences [address] [facility] [address] [place] [id number] Julia Quiles MD [address] [place] [phone] documented as of this encounter Procedures Procedure Name Priority Date/Time Associated Diagnosis Comments MRI LUMBAR SPINE WO CONTRAST Routine 05/19/2024 4:45 PM CDT POTS (postural orthostatic tachycardia syndrome) Generalized hypermobility of joints Vestibular migraine CSF leak MRI THORACIC SPINE WO CONTRAST Routine 05/19/2024 4:45 PM CDT POTS (postural orthostatic tachycardia syndrome) Generalized hypermobility of joints Vestibular migraine CSF leak MRI CERVICAL SPINE WO CONTRAST Routine 05/19/2024 4:45 PM CDT POTS (postural orthostatic tachycardia syndrome) Generalized hypermobility of joints Vestibular migraine CSF leak documented in this encounter Results * MRI Thoracic Spine Wo Contrast (05/19/2024 4:45 PM CDT) Anatomical Region Laterality Modality Chest Magnetic Resonan ce 05/19/2024 4:58 PM CDT [...] Peng MD on 05/20/2024 2:14 PM Julia Quiles MD MR ORDERABLES * MRI Lumbar Spine Wo Contrast (05/19/2024 4:45 PM CDT) Anatomical Region Laterality Modality Spine Magnetic Resonan ce 05/19/2024 4:50 PM CDT Impressions 05/20/2024 1:30 PM CDT IMPRESSION: Trace L4-5 degenerative disc changes. Edited by Nettie Earl on 05/19/2024 5:01 PM > Interpreting Provider: Gerard Iqbal MD on 05/20/2024 1:30 PM Narrative 05/20/2024 1:30 PM CDT MRI LUMBAR SPINE WITHOUT CONTRAST INDICATION: Postural orthostatic tachycardia syndrome. TECHNIQUE: Multisequence, multiplanar MRI sequences of the lumbar spine without contrast. FINDINGS: The spinal cord terminates at the L1-2 level. No distal cord signal abnormality. No diffuse marrow replacing process. No facet joint effusion. L2-3: Normal. L3-4: Normal. L4-5: Trace disc desiccation. No dominant annular fissure. There is no central or foraminal stenosis. Minimal facet arthropathy. L5-S1: Slight disc space height loss. There is no central or foraminal stenosis. Dilated upper sacral perineural root sleeve cysts. No extrinsic fluid adjacent to those cysts. No retroperitoneal adenopathy. Tiny T2 bright mass right kidney, too small to classify, measuring 11 mm most consistent with a simple cyst. Procedure Note Gerard Iqbal MD - 05/20/2024 MRI LUMBAR SPINE WITHOUT CONTRAST INDICATION: Postural orthostatic tachycardia syndrome. TECHNIQUE: Multisequence, multiplanar MRI sequences of the lumbar spine without contrast. FINDINGS: The spinal cord terminates at the L1-2 level. No distal cord signal abnormality. No diffuse marrow replacing process. No facet jointeffusion. L2-3: Normal. L3-4: Normal. L4-5: Trace disc desiccation. No dominant annular fissure. There is no central or foraminal stenosis. Minimal facet arthropathy. L5-S1: Slight disc space height loss. There is no central or foraminal stenosis. Dilated upper sacral perineural root sleeve cysts. Noextrinsic fluid adjacent to those cysts. No retroperitoneal adenopathy. Tiny T2 bright mass right kidney, toosmall to classify, measuring 11 mm most consistent with a simple cyst. IMPRESSION: Trace L4-5 degenerative disc changes. Edited by Nettie Earl on 05/19/2024 5:01 PM > Interpreting Provider: Gerard Iqbal MD on 05/20/2024 1:30 PM Julia Quiles MD MR ORDERABLES * MRI Cervical Spine Wo Contrast (05/19/2024 4:45 PM CDT) Anatomical Region Laterality Modality Pelvis Magnetic Resonan ce 05/19/2024 4:58 PM CDT [...] Peng MD on 05/20/2024 2:14 PM Julia Quiles MD MR ORDERABLES documented in this encounter Visit Diagnoses Diagnosis POTS (postural orthostatic tachycardia syndrome) Tachycardia, unspecified Generalized hypermobility of joints Other joint derangement, not elsewhere classified, multiple sites Vestibular migraine CSF leak Other specified disorder of nervous system documented in this encounter Care Teams Non Destructive Tester Relationship Specialty Start Date End Date Catie Cosme [address] [place] [phone] PCP - General 05/19/24 Unknown, Provider 10/19/16 Julia Quiles MD [address] [facility] [address] [place] [phone] Neurology 03/29/24 documented as of this encounter
--- OUTSIDE RECORDS SUMMARY | 2024-08-28 02:24 | XMS_ITS | Encounter Summary ---
Author Organization [facility] Address [address] [place] [address] Care Team Providers Care Charge Rn Name Role Phone Unknown, Provider Primary Care Provider Unavaila ble Unknown, Provider Unavailable Unavailable Julia Sanchez MD Unavailable [phone] Reason for Referral * Consultation (Routine) - Closed Specialty Diagnoses / Procedures Referred By Contac t Referred To Contact Pain Management Diagnoses CSF leak Julia Sanchez MD [address] [place] [address] Padilla Reno MD [address] [place] [address] Referral ID Status Reason Start Date Expiration Date V isits Requested Visits Authorized [id number] Closed Specialty Services Required 04/06/2024 04/06/2025 [address] SANCHEZ WOULD LIKE THIS PROCEDURE TO BE IN CONJUNCTION WITH HER TILT TABLE TEST, CURRENTLY SCHEDULED IN OUR OFFICE ON 07/13/24,STARTING AT 1:00 PM. THANK YOU. * Neurology (Routine) - Open Specialty Diagnoses / Procedures Referred By Contac t Referred To Contact Diagnoses POTS (postural orthostatic tachycardia syndrome) Generalized hypermobility of joints Vestibular migraine CSF leak Procedures TILT TABLE TEST WITH AUTONOMIC STUDIES Julia Sanchez MD [address] [place] [address] Referral ID Status Reason Start Date Expiration Date Visits Re quested Visits Authorized [id number] Open 04/06/2024 04/06/2025 1 1 * Radiology Services (Routine) - Closed Specialty Diagnoses / Procedures Referred By Contac t Referred To Contact MRI Diagnoses POTS (postural orthostatic tachycardia syndrome) Generalized hypermobility of joints Vestibular migraine CSF leak Procedures MRI Brain Wwo Contrast Julia Sanchez MD [address] [place] [address] Referral ID Status Reason Start Date Expiration Date Visits Re quested Visits Authorized [id number] Closed 05/07/2024 06/05/2024 1 1 * Radiology Services (Routine) - Closed Specialty Diagnoses / Procedures Referred By Contac t Referred To Contact MRI Diagnoses POTS (postural orthostatic tachycardia syndrome) Generalized hypermobility of joints Vestibular migraine CSF leak Procedures MRI Thoracic Spine Wo Contrast Julia Sanchez MD [address] [place] [address] Referral ID Status Reason Start Date Expiration Date Visits Re quested Visits Authorized [id number] Closed 05/07/2024 06/05/2024 1 1 * Radiology Services (Routine) - Closed Specialty Diagnoses / Procedures Referred By Contac t Referred To Contact MRI Diagnoses POTS (postural orthostatic tachycardia syndrome) Generalized hypermobility of joints Vestibular migraine CSF leak Procedures MRI Lumbar Spine Wo Contrast Juila Sanchez MD [address] [place] [address] Referral ID Status Reason Start Date Expiration Date Visits Re quested Visits Authorized [id number] Closed 05/07/2024 06/05/2024 1 1 * Radiology Services (Routine) - Closed Specialty Diagnoses / Procedures Referred By Charlene chan Referred To Contact MRI Diagnoses POTS (postural orthostatic tachycardia syndrome) Generalized hypermobility of joints Vestibular migraine CSF leak Procedures MRI Cervical Spine Wo Contrast Julia Sanchez MD [address] [place] [address] Referral ID Status Reason Start Date Expiration Date Visits Re quested Visits Authorized [id number] Closed 05/07/2024 06/05/2024 1 1 Reason for Visit * Reason Comments Consultation ? POTS * Consultation (Routine) - Closed Specialty Diagnoses / Procedures Referred By Charlene chan Referred To Contact Neuroscience Diagnoses POTS (postural orthostatic tachycardia syndrome) Jake Velez MD [address] [place] [phone] Julia Sanchez MD [address] [place] [address] Referral ID Status Reason Start Date Expiration Date V isits Requested Visits Authorized [id number] Closed Specialty Services Required 05/14/2023 05/13/2024 1 1 Encounter Details Date Type Department Care Team (Latest Contact Info) Description 04/06/2024 9:00 AM CDT Office Visit [facility] [address] [place] [address] Julia Sanchez MD [address] [place] [address] 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); POTS (postural orthostatic tachycardia syndrome); Generalized hypermobility of joints; Vestibular migraine; CSF leak; Pelvic congestion syndrome; Dysautonomia (HCC); 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 Social History Tobacco Use Types Packs/Day Years [...] on file documented as of this encounter Last Filed Vital Signs Vital Sign Reading Time Taken Comments Blood Pressure 124/75 04/06/2024 9:42 AM CDT Pulse 81 04/06/2024 9:42 AM CDT Temperature - - Respiratory Rate - - Oxygen Saturation - - Inhaled Oxygen Concentration - - Weight 72.6 kg (160 lb) 04/06/2024 9:42 AM CDT Height 175.3 cm (5' 9 ) 04/06/2024 9:42 AM CDT Body Mass Index 23.63 04/06/2024 9:42 AM CDT documented in this encounter Patient Instructions * Patient Instructions* Julia Sanchez MD - 03/31/2024 12:12 PM CDT Impression: 1) Orthostatic Intolerance 2) Possible POTS 3) New Daily Persistent FRYE 4) Vestibular Migraine 5) ?CSF spinal leak 6) Functional Sensory Loss 7) Pelvic Congestion Syndrome? Comment: Complex story of episodic prolonged dizziness/vertigo, w sudden onset severe prostration, fatigue, dizziness 12/2022, followed by new daily persistent FRYE, suggestive of CSF spinal leak. The MRI brain shows tonsilar migration without evidence of sagging brain or meningeal enhancement. Late afternoon HAs releived supine is very suggestive however of CSF spinal leak (spontaneous intracranial hypotension). 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 There are several variants of POTS, including neuropathic, hyperadrenergic, and autoimmune. The treatment includes volume expansion, exercise, and medication. Critical to success is a lifestyle change that includes vigorous daily exercise and weight training, to restore venous return. I recommend the following ([facility] recommendations): Repeat MRI brain with contrast MR myelogram MOBI Based on results, will proceed wit EBP Tilt and autonomic testing Propranolol 10mg BID 1) Fluid intake should be about 2 L (64 ounces) per day. Some of this can be in the form of water bolus therapy, meaning drinking 12 to 16 ounces of cold plain water quickly and immediately before anticipated upright activity, up to three times per day. The remainder can be any non-caffeinated beverage. Dietary salt intake should not only be liberal but aggressive, with high-sodium foods such as pickles, soy sauce, canned soups, deli meats, and salted nuts or pumpkin seeds. An alternative is Keto Vitals supplement added to 1 liter of water, available on RADLIVE. Salt tablets could be considered if urinary sodium was not at target, though they often cause GI upset. 2) Compression garments should cover the abdomen and thighs. Thigh- or waist- high compression stockings (30-40 mmHg strength) are effective but not always tolerated. Compression shorts such as bicycle shorts or Consider Compression Z full length or bicycle shorts ($36), [employer], FlameStower knee socks (20-30mmg) ($35), Material Mix Full Length massager ($169) Homma leggings ($21) /Under Armor/Spanx/HoneyLove are a reasonable, though less effective, alternative and should fit snuggly. For the abdomen, a compression shirt, Spanx garment, and/or an abdominalbinder should be worn when upright and taken off at night. Cooling vests- Thermapparel ($200) Frogg Toggs jacket Embr Wave 2 thermal wristband ($300) Cooling pillow- Moona ($99) Nocturnal monitor for adrenaline surge - Fitbit Sense ($200) 3) Exercise should include both cardio and weight training. Cardio training should be performed vigorously for at least 30 minutes on five or six days per week. Patients often tolerate recumbent activities better, such as recumbent biking, rowing, or swimming. Weight training should be performed two or three days per week and target the proximal lower limbs and core with such exercises as leg presses, toe presses, leg extensions, leg curls, yoga, and/or Pilates. The appropriate weight is that which can be lifted for two sets of 12 repetitions per muscle group. I emphasized the need to progress gradually with the exercise regimen, as going too hard too early often causes a set back. For example, aerobic exercise should start at just 5 minutes every other day, plus a cool down, and increaseby a few minutes each week as tolerated toward the goal of 30 minutes of continuous exercise in about 3 months. [facility] POTS training program- [email or web address] 4) The head of the bed should be elevated by approximately 6 inches by placing blocks under the headboard (not an extra pillow or mattress wedge). This reduces supine hypertension and overnight pressure diuresis. 5) Medications Although lifestyle changes are 70% of the management strategy for POTS, medications may be necessary for further symptom reduction. Low dose beta blockers such as propranolol 10mg twice daily may reduce heart rate and palpitations,prevent migraine, reduce fight or flight reaction, and reduce tremor and involuntary movements. Pyridostigmine 30-60mg 3x per day is a cholinergic agent that prevents falls in BP, augments venousreturn, and promotes digestion. Helpful if constipated, but may promote diarrhea. Fludrocortisone .1mg daily may improve intravascular volume, venous return, and result in lower heart rates. Watch for hypokalemia, hypomagnesemia with assisted use. Midodrine 2.5mg BID- 10mg TID improves venous return, lowers heart rate. Never take after 6pm. Gooseflesh is a unique side effect. Hydroxyzine 10mg BID-TID is an antihistamine/anticholinergic that may be helpful for fatigue, palpitations, anxiety assoc w the hyperadrenergic state. Guanfacine 1mg q HS - BID may help reduce nocturnal palpitations, night sweats, temperature dysregulation, fatigue. May be used with NAC 600mg daily for brain fog. Sertraline 25-100mg at night may be helpful for POTS and anxiety/depression. Ivabradine 5-10mg BID reduces palpitations without inducing hypotension and other potential side effects of beta blockers such as propranolol. Other issues- For sleep, Dr Leonid Zhu breathing technique for relaxation [email or web address]://[email or web address]/[email or web address] For nightmares, hold LDN for 1-2 weeks if taking For brain fog, consider NAC (n acetylcysteine) 600mg daily For night sweats, may consider clonidine .1mg before bed. documented in this encounter Progress Notes * Marcie Brothers - 04/06/2024 1:20 PM CDT Referral placed to Dr. Reno for blood patch to be performed on day of Tilt table test (07/13/24). Referral delivered directly to pain management today. They are aware she lives in [place] and will need to have MRI's per CSF Protocol with MOBI view performed at [facility], so will attempt to have office visit and blood patch ( [facility] coordinated with MRI scheduling day or tilt table test day. * Julia Sanchez MD - 04/06/2024 9:50 AM CDT Images from the original note were not included. 04/06/2024 Yomaira Ford 34 year old Chief Complaint: Chief Complaint Patient presents with Consultation ? POTS HPI: Provider Unknown has requested a neurologic consultation on Yomaira Ford. I saw Yomaira Ford in the office for a consultation. She is a 33 year old female with a history ofdizziness that started in December 2022 and has been consistent ever since and has moved to [place] 3 months ago as she was very heat intolerant and has improved by about 50% since they have moved and since coming back to [facility] she is struggling all over again and has several sx. Patient main sx include dizziness,left side of body is numb,tingling and weaker than it used to be,fatigue,near syncope,syncopal episodes where she can hear everything but can not see and that lasts < 30 seconds. Patient also has blood pooling in her legs and arms and will turn purple and is very heavy.pelvic pain,SOB,FRYE's and irregular heartbeat. Patient states she wears compression stockings all the time and depending on what she is doing she will wear the chest high or body suit and it tends to bring on other sx such as bad head pressure,FRYE's and visual changes. Patient was referred by Jake Velez MD and is no longer under the care since since they have moved out of state due to her health issues. Per Dr Mosher [facility] Vascular note 10/2023- 33 y.o. female patient with history of POTS who is status post left ilio caval and renal venograms. Her imaging suggested excellent washout from her left iliac and renal systems, and there was no significant pressure gradient across her renal vein. 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 She is wearing thigh high compression that she is able toleratefor several hours at a time, and she has been able to progressively increase her utilization of these garments. She says that these actually have been making her feel better over time, with reductionof her overall symptoms. She states that she is now on oral contraceptives, which her farm worker was somewhat hesitant to prescribe initially because of her POTS diagnosis and risk of venous thrombosis, but the patient states that these OCPs improve her menstrual symptoms significantly. Additionally, patient states that she and her are in the process of moving to [place]. Consent was obtained for the use of JOSE. The patient was last perfectly well prior to the of her third child in 2016, after which, sheexperienced several episodes of tachycardia, dizziness, and vertigo. These episodes would last a couple of weeks and respond spontaneously. Upon visits to the ER, she was told she had anxiety. Her vertigo would occur lying down and sitting. After each of her 3 COVID-19 vaccinations, she had high fevers, tachycardia, and vertigo for about 2 weeks to 1 month. On 01/16/2023, she experienced shortness of breath and fatigue upon awakening. 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 She lay down on the floor in the staff room and lost consciousness for a few seconds. She then sought emergency care, where her labs were found to be normal. A similar episode occurred the following day, and within a couple of weeks,she could not get out of bed. She remained bedridden for the majority of last year. Her most disabling symptoms were severe dizziness, vertigo, vasovagal symptoms, dyspnea, heat, perspiration, and near syncope. Her symptoms would improve upon lying down, but she still had symptoms. About 2 months into her symptoms of dizziness, she began experiencing throbbing headaches. Last summer, her headaches were severe headaches with photophobia and pain that radiated down the vertex of her head and down the back of her neck and spine. Sleep alleviated these headaches. Prior to this, she had 5 or more pounding or throbbing headaches accompanied by nausea and photophobia in her life. Her headaches also occur on the first day of her menstrual cycle. When she was in high school, she experienced severe headaches due to jaw clenching. Another symptom she experienced was a panic-like sensation of a fizzling and tingling sensation through her brain, which would radiate down her body accompanied by loss of vision, extreme dizziness, and tinnitus in her left ear. The left ear tinnitus is still present. All her life, she had occurrences of feeling dizzy and nauseous while showering. COVID-19 infectionhas made her symptoms worse. She has had pain in her left ovary since the of her son in 2017. Multiple ultrasounds never revealed a cause. She was placed on control for a potential cyst. Her leg swelling a few monthsinto her illness when her headaches were severe. Her toes became swollen and purple. Her left leg was weaker, and she had loss of control and tripping. She was referred to a resident doctor. She started a [employer] exercise program; however, every time she exercised, the pain in her ovary got severe with pain radiating down her leg. Her resident doctor referred to another provider who performed a CT scan of her abdomen, which revealed the veins in her abdomen were extremely dilated. A venogram was performed, and she was informed she may have POTS; however,POTS was never diagnosed. When she is sitting, her heart rate is in the low 60 bpm range. If she iswalking around her house, it is usually over 100 bpm. Her vision in her left eye has permanently changed, and her vision has gotten a little bit worse. She has noticed black floaters all the time. Autonomic symptoms _ heat intolerance _blurred vision, l>r _orthostatic lghtheadedness- 0 never, 1 mild, 2 frequent, 3 consistent, 4 with syncope _palpitations _ Anxiety, tremulousness left hand _unsteadiness, drags left leg after walking couple of hours _dry eyes, mouth _ vasomotor discoloration of hands and feet, left more than right _ reduced /excessive sweating- now normal _ Post prandial symptoms 0 never, 1 mild, 2 frequent, 3 consistent- anorexia, early satiety, weightloss of 0 pounds _Abdominal pain/cramping _nocturnal diarrhea _sexual problems, loss of libido _urinary retention Mast Cell- Urticaria w MRI contrast, angioedema, flushing, nausea, vomiting, diarrhea, abdominal cramping, hypotensive syncope or near syncope, tachycardia, wheezing, conjunctival injection, pruritus, and nasalstuffiness Intolerant- dairy, contrast, floxacin eye drops Past Medical History: Diagnosis Date COVID-spring,01/2023 H/O seasonal allergies Past Surgical History: Procedure Laterality Date Tonsillectomy 07/2018 Current Outpatient Medications Medication Lo Loestrin Fe 1 MG-10 MCG / 10 MCG tablet Multiple Minerals-Vitamins (CALCIUM & VIT D3 BONE HEALTH PO) multivitamin daily tablet No current facility-administered medications for this visit. Allergies Allergen Reactions Contrast-Gadolinium Agents For Mri Urticaria, Itching and Rash Pt received Prohance 16ml. Itchy throat, rash, [...] regimen successfully with no issues Ofloxacin Other Hives Social History Tobacco Use Smoking status: Never Smokeless tobacco: Never Vaping Use Vaping Use: Never used Substance Use Topics Alcohol use: Never Drug use: Never Caffeine consumption:min Family History Problem Relation Name Age of Onset Other Mother HTN, Other Father Thyroid disease,Asthma,Fibromyalgia, Other Sister Heart failure after a viral infection, Other Brother Childhood RA,Anemia in his teens,Long Covid, REVIEW OF SYSTEMS: A ten system review of constitutional, cardiovascular, respiratory, musculoskeletal, endocrine, skin, SHEENT, genitourinary, psychiatric and neurologic systems was obtained and is available in the electronic record. Late afternoon FRYE, best in AM Detailed Neuro/Psych Review: (negative unless bold type) _ change in thinking, mood or memory- brain fog _ anxiety, depression, difficulty sleeping-fatigue, but refreshing sleep _ involuntary movements, cramps or tremors _ head trauma, seizures or strokes + pulsatile tinnitus _ headache- migraine plus occipital cevical FRYE. Late afternoon. , stiff neck, LBP or LOC _ double/blurred vision, slurred speech, trouble swallowing _ dizziness, lightheadedness, vertigo or fainting _ numbess, tingling left hemibody or weakness of any body part. _ bowel or bladder incontinence EXAMINATION: BP 124/75 (Patient Position: Lying) Pulse 81 Ht 1.753 m (5' 9 ) Wt 72.6 kg (160 lb) Orthostatic B/P Supine 124/75 P 81 Standing 143/78 P 72 2 min 120/69 P 71 3 min 117/67 P 73 General: General appearance: well developed, in no distress Cardiovascular- extremities warm and well perfused, no edema Calf circ 390mm bilaterally Neurological Examination: Mental Status: Awake, Alert. Oriented x3. Follows commands, has normal fund of knowledge, attention, short term recall, fluency, comprehension and insight. Cranial Nerves: Visual warner are full without hemineglect. Pupils react equally to light. Extraocular movements are full. Facial sensation intact V1-V3. Facial movement intact, symmetric. Hearing intact to conversation. Nystagmus is not present. Palate elevates symmetrically. Shoulder shrug symmetric. Tongue midline. Motor: No orbiting or pronator drift. Strength is symmetric proximally and distally. Good rapid alternating and fine finger movements. No asterixis or myoclonus. Postural and action tremor left more than right. Normal tone. No atrophy. Sensation: Intact to light touch, temperature, and midline splitting to vibration, right more than left. Reflexes: DTRs 2+ throughout. Plantar responses downgoing. Coordination/Cerebellar: Intact to [id number]-[id number], [id number]-io-[id number] exam. Gait: walks independently, normal tandem gait and Romberg test. Beighton score-2/9 Malfait questions- 2/5 ?? Can you now (or could you ever) place your hands flat on the floor without bending your knees? ?? Can you now (or could you ever) bend your thumb to touch your forearm? ?? As a child, did you amuse your friends by contorting your body into strange shapes or could you do the splits? ?? As a child or teenager, did your shoulder or kneecap dislocate on more than one occasion? ?? Do you consider yourself ???double jointed?? ? Imaging/Laboratory review: \ Vick socre <2 Impression: 1) Orthostatic Intolerance 2) Possible POTS 3) New Daily Persistent FRYE 4) Vestibular Migraine 5) ?CSF spinal leak 6) Functional Sensory Loss 7) Pelvic Congestion Syndrome? Comment: Complex story of episodic prolonged dizziness/vertigo, w sudden onset severe prostration, fatigue, dizziness 12/2022, followed by new daily persistent FRYE, suggestive of CSF spinal leak. The MRI brain shows tonsilar migration without evidence of sagging brain or meningeal enhancement. Late afternoon HAs releived supine is very suggestive however of CSF spinal leak (spontaneous intracranial hypotension). 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 There are several variants of POTS, including neuropathic, hyperadrenergic, and autoimmune. The treatment includes volume expansion, exercise, and medication. Critical to success is a lifestyle change that includes vigorous daily exercise and weight training, to restore venous return. I recommend the following ([facility] recommendations): Repeat MRI brain with contrast MR myelogram MOBI Based on results, will proceed wit EBP Tilt and autonomic testing Propranolol 10mg BID 1) Fluid intake should be about 2 L (64 ounces) per day. Some of this can be in the form of water bolus therapy, meaning drinking 12 to 16 ounces of cold plain water quickly and immediately before anticipated upright activity, up to three times per day. The remainder can be any non-caffeinated beverage. Dietary salt intake should not only be liberal but aggressive, with high-sodium foods such as pickles, soy sauce, canned soups, deli meats, and salted nuts or pumpkin seeds. An alternative is Keto Vitals supplement added to 1 liter of water, available on RADLIVE. Salt tablets could be considered if urinary sodium was not at target, though they often cause GI upset. 2) Compression garments should cover the abdomen and thighs. Thigh- or waist- high compression stockings (30-40 mmHg strength) are effective but not always tolerated. Compression shorts such as bicycle shorts or Consider Compression Z full length or bicycle shorts ($36), Global Quorum-XMelodeo, FlameStower knee socks (20-30mmg) ($35), Fit Flaviar Full Length massager ($169) Homma leggings ($21) /Under Armor/Spanx/HoneyLove are a reasonable, though less effective, alternative and should fit snuggly. For the abdomen, a compression shirt, Spanx garment, and/or an abdominalbinder should be worn when upright and taken off at night. Cooling vests- Thermapparel ($200) Frogg Toggs jacket Embr Wave 2 thermal wristband ($300) Cooling pillow- Moona ($99) Nocturnal monitor for adrenaline surge - Fitbit Sense ($200) 3) Exercise should include both cardio and weight training. Cardio training should be performed vigorously for at least 30 minutes on five or six days per week. Patients often tolerate recumbent activities better, such as recumbent biking, rowing, or swimming. Weight training should be performed two or three days per week and target the proximal lower limbs and core with such exercises as leg presses, toe presses, leg extensions, leg curls, yoga, and/or Pilates. The appropriate weight is that which can be lifted for two sets of 12 repetitions per muscle group. I emphasized the need to progress gradually with the exercise regimen, as going too hard too early often causes a set back. For example, aerobic exercise should start at just 5 minutes every other day, plus a cool down, and increaseby a few minutes each week as tolerated toward the goal of 30 minutes of continuous exercise in about 3 months. [facility] POTS training program- [email or web address]l.org/pdf/[facility]_POTS_ Exercise_Program.pdf 4) The head of the bed should be elevated by approximately 6 inches by placing blocks under the headboard (not an extra pillow or mattress wedge). This reduces supine hypertension and overnight pressure diuresis. 5) Medications Although lifestyle changes are 70% of the management strategy for POTS, medications may be necessary for further symptom reduction. Low dose beta blockers such as propranolol 10mg twice daily may reduce heart rate and palpitations,prevent migraine, reduce fight or flight reaction, and reduce tremor and involuntary movements. Pyridostigmine 30-60mg 3x per day is a cholinergic agent that prevents falls in BP, augments venousreturn, and promotes digestion. Helpful if constipated, but may promote diarrhea. Fludrocortisone .1mg daily may improve intravascular volume, venous return, and result in lower heart rates. Watch for hypokalemia, hypomagnesemia with supervisor long goods use. Midodrine 2.5mg BID- 10mg TID improves venous return, lowers heart rate. Never take after 6pm. Gooseflesh is a unique side effect. Hydroxyzine 10mg BID-TID is an antihistamine/anticholinergic that may be helpful for fatigue, palpitations, anxiety assoc w the hyperadrenergic state. Guanfacine 1mg q HS - BID may help reduce nocturnal palpitations, night sweats, temperature dysregulation, fatigue. May be used with NAC 600mg daily for brain fog. Sertraline 25-100mg at night may be helpful for POTS and anxiety/depression. Ivabradine 5-10mg BID reduces palpitations without inducing hypotension and other potential side effects of beta blockers such as propranolol. Other issues- For sleep, Dr Leonid Zhu breathing technique for relaxation https://www.[email or web address] 1 Performance.com/watch?v=z2siQZN-s4i For nightmares, hold LDN for 1-2 weeks if taking For brain fog, consider NAC (n acetylcysteine) 600mg daily For night sweats, may consider clonidine .1mg before bed. 60 minutes spent reviewing records, examining and counseling the patient. documented in this encounter Plan of Treatment Upcoming Encounters Date Type Department Care Team (Late st Contact Info) Description 10/07/2024 10:40 AM LAMINATOR PREFORMS Office Visit [facility] Neurosciences [address] [place] [address] Julia Sanchez MD [address] [place] [phone] Scheduled Orders Name Type Priority Associated Diagnoses Orde r Schedule TILT TABLE TEST WITH AUTONOMIC STUDIES Neurology Routine POTS (postural orthostatic tachycardia syndrome) Generalized hypermobility of joints Vestibular migraine CSF leak 1 Occurrences starting 04/06/2024 until 04/07/2025 Scheduled Referrals Name Type Priority Associated Diagnoses Order Schedule AMB REFERRAL TO PAIN CLINIC Outpatient Referral Routine CSF leak 1 Occurrences starting 04/06/2024 until 04/06/2025 documented as of this encounter Results * MRI Brain Wwo [...] Peng MD on 05/20/2024 2:14 PM Julia Sanchez MD MR ORDERABLES * MRI Thoracic Spine Wo Contrast (05/19/2024 [...] Peng MD on 05/20/2024 2:14 PM Julia Sanchez MD MR ORDERABLES * MRI Lumbar Spine [...] Iqbal MD on 05/20/2024 1:30 PM Julia Sanchez MD MR ORDERABLES * MRI Cervical Spine [...] Peng MD on 05/20/2024 2:14 PM Julia Sanchez MD MR ORDERABLES documented in this encounter Visit Diagnoses 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 POTS (postural orthostatic tachycardia syndrome) Tachycardia, unspecified Generalized hypermobility of joints Other joint derangement, not elsewhere classified, multiple sites Vestibular migraine CSF leak Other specified disorder of nervous system Pelvic congestion syndrome Dysautonomia (HCC) Unspecified disorder of autonomic nervous system 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 POTS (postural orthostatic tachycardia syndrome) Tachycardia, unspecified Generalized hypermobility of joints Other joint derangement, not elsewhere classified, multiple sites Vestibular migraine CSF leak Other specified disorder of nervous system POTS (postural orthostatic tachycardia syndrome) Tachycardia, unspecified Generalized hypermobility of joints Other joint derangement, not elsewhere classified, multiple sites Vestibular migraine CSF leak Other specified disorder of nervous system documented in this encounter Care Teams Charge Rn Relationship Specialty Start Date End Date Unknown, Provider PCP - General 10/19/16 05/18/24 Unknown, Provider 10/19/16 Julia Sanchez MD [address] [facility] [address] [place] [address] Neurology 03/29/24 documented as of this encounter
--- OUTSIDE RECORDS SUMMARY | 2024-08-28 02:24 | XMS_ITS | Encounter Summary ---
Author Organization [facility] [place] Address [address] [place] [address] [address] Care Team Providers Care Java Designer Name Role Phone Unavailable Primary Care Provider Unavailabl e Encounter Details Date Type Department Care Team (Latest Contact Info) Description 11/21/2017 Abstract [facility] Social History Tobacco Use Types Packs/Day Years Used Date Smoking Tobacco: Never Assessed Comments Unknown Sex and Gender Information Value Date Recorded Sex Assigned at Not on file Legal Sex Female 6:48 PM CDT Gender Identity Not on file Sexual Orientation Not on file documented as of this encounter Plan of Treatment Not on file documented as of this encounter Visit Diagnoses Not on filedocumented in this encounter
--- OUTSIDE RECORDS SUMMARY | 2024-08-28 02:24 | XMS_ITS | Encounter Summary ---
Author Organization [place] Address [facility] [place] [address] Care Team Providers Care Business Operations Director Name Role Phone Catie Cosme MD Primary Care Provider [phone] Catie Cosme MD Unavailable [phone] Marlen Raymundo MD Unavailable [phone] Encounter Details Date Type Department Care Team (Latest Contact Info) Description 06/24/2024 Travel Social History Tobacco Use Types Packs/Day Years Used Date Smoking Tobacco: Never Assessed Alcohol Use Standard Drinks/Week Comments Not Currently 0 (1 standard drink = 0.6 oz pur e alcohol) prior 1 /wk PHQ-2 Answer Date Recorded PHQ-2 Score 0 06/24/2024 Comments Unknown Sex and Gender Information Value Date Recorded Sex Assigned at Not on file Legal Sex Female 2:34 PM CDT Gender Identity Not on file Sexual Orientation Not on file documented as of this encounter Plan of Treatment Upcoming Encounters Date Type Department Care Team (Late st Contact Info) Description 11/08/2024 10:00 AM CDT Virtual Visit [facility] [address] [place] [address] Catie Cosme MD [facility] [address] [place] [address] Marlen Raymundo MD [address] [place] [address] documented as of this encounter Visit Diagnoses Not on filedocumented in this encounter Care Teams Business Operations Director Relationship Specialty Start Date End Date Catie Cosme MD [facility] [address] [place] [address] PCP - General Internal Medicine 03/09/24 Catie Cosme MD [place] [address] [place] [address] Internal Medicine 05/25/24 Marlen Raymundo MD [address] [address] Hospitalist Endocrinology, Diabetes, and Metabolism 05/25/24 documented as of this encounter
--- OUTSIDE RECORDS SUMMARY | 2024-08-28 02:24 | XMS_ITS | Encounter Summary ---
Author Organization [place] Address [facility] [place] [address] Care Team Providers Care Eligibility Manager Name Role Phone Catie Cosme MD Primary Care Provider [phone] Encounter Details Date Type Department Care Team (Late st Contact Info) Description 03/09/2024 Orders Only (auto-released) [facility] Heart [place] [id number] [facility] [address] [place] [phone] Catie Cosme MD [facility] [address] [place] [address] Pre-syncope; Palpitations; Tachycardia Social History Tobacco Use Types Packs/Day Years Used Date Smoking Tobacco: Never Assessed Comments Unknown Sex and Gender Information Value Date Recorded Sex Assigned at Not on file Legal Sex Female 2:34 PM CDT Gender Identity Not on file Sexual Orientation Not on file documented as of this encounter Plan of Treatment Upcoming Encounters Date Type Department Care Team (Late Contact Info) Description 11/08/2024 10:00 AM CDT Virtual Visit [facility] [address] [place] [phone] Catie Cosme MD [facility] [address] [place] [address] Marlen Raymundo MD [address] [place] [address] documented as of this encounter Procedures Procedure Name Priority Date/Time Associated Diagnosis Comments ZIO PATCH MAIL OUT Routine 04/03/2024 9: 35 AM CDT Pre-syncope Palpitations Tachycardia documented in this encounter Results * ZIO PATCH MAIL OUT (04/03/2024 9:35 AM CDT) Anatomical Region Laterality Modality Other Narrative 04/03/2024 9:38 AM CDT 14-day lunchroom monitor. Single 4-beat VT run. The monitor was activated by the patient in association with various rhythms: SR, brief event of accelerated junctional rhythm, the above single 4-beat VT run and sinus rhythm with single ectopic beats. Catie Cosme MD [facility] ORDERABLES Final Result documented in this encounter Visit Diagnoses Diagnosis Pre-syncope Syncope and collapse Palpitations Tachycardia Tachycardia, unspecified documented in this encounter Care Teams Eligibility Manager Relationship Specialty Start Date End Date Catie Cosme MD [facility] [address] [place] [address] PCP - General Internal Medicine 03/09/24 documented as of this encounter
--- OUTSIDE RECORDS SUMMARY | 2024-08-28 02:24 | XMS_ITS | Encounter Summary ---
Author Organization [facility] Address [address] [place] [address] Care Team Providers Care Homicide Squad Sergeant Name Role Phone Unknown, Provider Primary Care Provider Unavaila ble Unknown, Provider Unavailable Unavailable Julia Quiles MD Unavailable [phone] Encounter Details Date Type Department Care Team (Latest Contact Info) Description 04/20/2024 Travel Social History Tobacco Use Types Packs/Day [...] st Contact Info) Description 10/07/2024 10:40 AM LEARNING STRATEGIST Office Visit [facility] Health Neurosciences [address] [place] [id number] Julia Quiles MD [address] [place] [address] documented as of this encounter Visit Diagnoses Not on filedocumented in this encounter Care Teams Homicide Squad Sergeant Relationship Specialty Start Date End Date Unknown, Provider PCP - General 10/19/16 05/18/24 Unknown, Provider 10/19/16 Julia Quiles MD [address] [place] [phone] Neurology 03/29/24 documented as of this encounter
--- OUTSIDE RECORDS SUMMARY | 2024-08-28 02:24 | XMS_ITS | Clinical Summary ---
Author Organization [facility] Address [address] [place] [address]. [place], [place] [address] [place] [address] Care Team Providers Care Supervisor Instrument Repair Name Role Phone Unavailable Primary Care Provider Unavailabl e Social History Tobacco Use Types Packs/Day Years Used Date Smoking Tobacco: Never Assessed Comments Unknown Sex and Gender Information Value Date Recorded Sex Assigned at Not on file Legal Sex Female 6:48 PM CDT Gender Identity Not on file Sexual Orientation Not on file Plan of Treatment Health Maintenance Due Date Last Done Comments Cervical Cancer Screening Pa p Smear (Age 30 to 64) Every 3 Years 1989 Annual Physical 1992 Hepatitis C 2007 DTaP, Tdap and Td Vaccines ( 1 - Tdap) 2008 Hepatitis B Vaccines (1 of 3 - 19+ 3-dose series) 2008 Cervical Cancer Screening Pa p with HPV Testing (Age 30 to 64) Every 5 Years 2019 Cervical Cancer Screening with HPV 2019 COVID-19 Vaccine (2023-2 5 season) 2024 Influenza Adult (#1) 2024 HPV Vaccines Aged Out No longer eligi ble based on patient's age to complete this topic Meningococcal Vaccine Aged Out No marce aneudy eligible based on patient's age to complete this topic Pneumococcal Vaccine: Pediat rics (0 to 5 Years) and At-Risk Patients (6 to 64 Years) Aged Out No longer eligible b ased on patient's age to complete this topic RSV Immunizations Under 20 Months Aged Out No longer eligible based on patient's age to complete this topic
--- OUTSIDE RECORDS SUMMARY | 2024-08-28 02:24 | XMS_ITS | Encounter Summary ---
Author Organization [place] Address [facility] [place] [address] Care Team Providers Care Key Person Name Role Phone Catie Cosme MD Primary Care Provider [phone] Catie Cosme MD Unavailable [phone] Marlen Raymundo MD Unavailable [phone] Reason for Visit * Reason Comments Follow Up 2 Week F/U * Consultation (Routine: Next available opening) - Pending Review Specialty Diagnoses / Procedures Referred By Contac t Referred To Contact Cardiovascular Disease Diagnoses Orthostasis Vinay Douglas MD [address] [place] [address] Phone: tel: fax: Referral ID Status Reason Start Date Expiration Date V isits Requested Visits Authorized [id number] Pending Review 06/24/2024 06/24/2025 1 1 Encounter Details Date Type Department Care Team (Late st Contact Info) Description 07/14/2024 12:40 PM CLINICAL ESTHETICIAN Office Visit [facility] Heart [facility] [address] [place] [phone] Vinay Douglas MD [address] [place] [address] Nevin Figueroa PA-C [address] [place] [id number] Orthostasis Social History Tobacco Use Types Packs/Day Years [...] Sign Reading Time Taken Comments Blood Pressure 118/80 07/14/2024 2:09 PM CLINICAL ESTHETICIAN Pulse 61 07/14/2024 2:09 PM CLINICAL ESTHETICIAN Temperature - - Respiratory Rate - - Oxygen Saturation 98% 07/14/2024 2:09 PM CLINICAL ESTHETICIAN Inhaled Oxygen Concentration - - Weight 79.4 kg (175 lb) 07/14/2024 2:09 PM CLINICAL ESTHETICIAN Height - - Body Mass Index 26.15 06/24/2024 3:13 PM CDT documented in this encounter Patient Instructions * Patient Instructions* Nevin Figueroa PA-C - 07/14/2024 12:40 PM CLINICAL ESTHETICIAN Call the nurse for any questions or concerns at [phone]. Plan: 1. Medication changes: Okay to remain off of Florinef. 2. Follow up with cardiology on an as-needed basis -Scheduling phone number: [phone] It was great seeing you today! Nevin Figueroa PA-C Physician Application Support Engineer [facility] ICAL ESTHETICIAN documented in this encounter Progress Notes * Nevin Figueroa PA-C - 07/14/2024 12:40 PM CST Cardiology Clinic Progress Note Yomaira Ford Date of : 1990 Age: [age] year old Primary Microbiology Teacher: Dr. Douglas Reason for visit: Follow-up Assessment and Plan: Yomaira Ford is a very pleasant 34 year old female who is here today for follow-up. 1. History of episodes of tachycardia, diaphoresis, and near syncope. No episodes in the last 1 year. Started on Florinef by Dr. Douglas a few weeks ago, experienced side effect so she discontinued the medication. Changes today: Okay to remain off of Florinef Ms. Ford remains stable from a cardiac perspective. Denies any symptoms concerning for angina, decompensated heart failure, or arrhythmia. She has a history of episodes of tachycardia, diaphoresis and near-syncope, but none for almost 1 year. She will continue conservative measures including compression stocking use, increased hydration, salt intake, and daily exercise. Follow-up in the cardiology clinic on an as-needed basis. Nevin Figueroa PA-C [facility] Pager: [phone] History of Presenting Illness: Yomaira Ford is a very pleasant 34 year old female who recently saw Dr. Douglas for evaluation for POTS. She has a history, dating about 10 years back, of tachycardia, diaphoresis, and near syncope. She has had extensive workup in the past including echocardiogram, ECG, CT scan, and brain MRI. She does not have a formal diagnosis. She was started on low-dose propranolol with some improvement in her symptoms. At the time of her appointment with Dr. Douglas, he initiated Florinef 0.15 mg once daily. BMP 07/01/2024 revealed normal renal function and electrolytes. Patient is here today for follow-up. She reports after initiation of Florinef, she felt as though she was having a panic attack about 2 to 3 hours after taking the medication. As such, she discontinued use after 3 days. Over the past several weeks, she has been feeling better than she has in a verylong time. She recently saw a provider who started her on some new supplements, 1 of which is magnesium which has helped her sleep better. She tells me she has not had episodes of sweatiness/presyncope in almost 1 year. She takes her medications daily as prescribed. Blood pressure 118/80 and heart rate 61 in clinic today. She wears compression stockings daily. Maintains adequate hydration and pushes salt intake. Exercises routinely. Social History Social History Socioeconomic History Marital status: Spouse name: Not on file Number of children: Not on file Years of education: Not on file Highest education level: Not on file Occupational History Not on file Tobacco Use Smoking status: Not on file Smokeless tobacco: Not on file Substance and Sexual Activity Alcohol use: Not Currently Comment: prior 1 /wk Drug use: Not on file Comment: caffeine 2/d Sexual activity: Not on file Other Topics Concern Not on file Social History Narrative Not on file Social Drivers of Health Financial Resource Strain: Not on file Food Insecurity: Not on file Transportation Needs: Not on file Physical Activity: Not on file Stress: Not on file Social Connections: Not on file Interpersonal Safety: Not on file Housing Stability: Not on file Review of Systems: Please see HPI Physical Exam: Vitals: BP 118/80 (BP Location: Right arm, Patient Position: Sitting, Cuff Size: Adult Regular) Pulse 61 Wt 79.4 kg (175 lb) SpO2 98% BMI 26.15 kg/m?? Wt Readings from Last 4 Encounters: 06/24/24 77.6 kg (171 lb) GEN: well nourished, in no acute distress. HEENT: Pupils equal, round. Sclerae nonicteric. NECK: Supple, no masses appreciated. No JVD C/V: Regular rate and rhythm, no murmur, rub or gallop. RESP: Respirations are unlabored. Clear to auscultation bilaterally without wheezing, rales, or rhonchi. GI: Abdomen soft, nontender. EXTREM: no LE edema. NEURO: Alert and oriented, cooperative. SKIN: Warm and dry. Data: LIPID RESULTS: Lab Results Component Value Date TRIG 57 03/05/2024 LIVER ENZYME RESULTS: No results found for: AST , ALT CBC RESULTS: No results found for: WBC , RBC , HGB , HCT , MCV , MCH , MCHC , RDW , PLT BMP RESULTS: Lab Results Component Value Date NA 140 07/01/2024 POTASSIUM 3.8 07/01/2024 CHLORIDE 106 07/01/2024 CHLORIDE 106.2 03/05/2024 CO2 22 07/01/2024 ANIONGAP 12 07/01/2024 GLC 73 07/01/2024 BUN 10.0 07/01/2024 CR 0.69 07/01/2024 GFRESTIMATED >90 07/01/2024 MIQUEL 8.8 07/01/2024 A1C RESULTS: No results found for: A1C INR RESULTS: No results found for: INR Medications Current Outpatient Medications Medication Sig Dispense Refill fludrocortisone (FLORINEF) 0.1 MG tablet Take 1.5 tablets (0.15 mg) by mouth daily. 50 tablet 4 LO LOESTRIN FE 1 MG-10 MCG / 10 MCG TABS Take 1 tablet by mouth daily. propranolol (INDERAL) 10 MG tablet Take 10 mg by mouth daily. Past Medical History Past Medical History: Diagnosis Date Migraine Near syncope vaso vagal No past surgical history on file. Family History Problem Relation Age of Onset Hypertension Mother Asthma Father Thyroid Disease Father Fibromyalgia Father Myocarditis Sister No Known Problems Brother Allergies Contrast dye 30 minutes spent on the date of the encounter doing chart review, history and exam, documentation and further activities as noted above Nevin Figueroa PA-C [facility] Pager: [phone] ICAL ESTHETICIAN documented in this encounter Plan of Treatment Upcoming Encounters Date Type Department Care Team (Late st Contact Info) Description 11/08/2024 10:00 AM CDT Virtual Visit [facility] [address] [place] [phone] Catie Cosme MD [facility] [address], [place] [address] Marlen Raymundo MD [address] [facility] [address] [place] [address] documented as of this encounter Visit Diagnoses Diagnosis Orthostasis Orthostatic hypotension documented in this encounter Care Teams Key Person Relationship Specialty Start Date End Date Catie Cosme MD [facility] [address] [place] [address] PCP - General Internal Medicine 03/09/24 Catie Cosme MD [facility] [address] [place] [address] Internal Medicine 05/25/24 Marlen Raymundo MD [address] [facility] [address] [place], [place] [phone] Hospitalist Endocrinology, Diabetes, and Metabolism 05/25/24 documented as of this encounter
--- OUTSIDE RECORDS SUMMARY | 2024-08-28 02:24 | XMS_ITS | Encounter Summary ---
Author Organization [facility] Address [address] [place] [address] Care Team Providers Care Roads And Parking Lots Sweeper Operator Name Role Phone Catie Cosme MD Primary Care Provider [phone] Reason for Referral * CV Testing (Routine) - Pending Review Specialty Diagnoses / Procedures Referred By Charlene chan Referred To Contact Diagnoses Pre-syncope Palpitations Tachycardia Procedures ZIO PATCH MAIL OUT Catie Cosme MD [facility] [place] [address] [place] [address] Phone: tel: fax: Referral ID Status Reason Start Date Expiration Date V isits Requested Visits Authorized [id number] Pending Review 03/09/2024 03/09/2025 1 1 Encounter Details Date Type Department Care Team (Late st Contact Info) Description 03/09/2024 Orders Only [facility] Heart [address] [place] [phone] Catie Cosme MD [facility] [address] [address] Pre-syncope (Primary Dx); Palpitations; Tachycardia Social History Tobacco Use Types [...] Description 11/08/2024 10:00 AM CDT Virtual Visit [facility] [address] [place] [address] Catie Cosme MD [facility] [address] [place] [address] Marlen Raymundo MD [address] [place] [address] documented as of this encounter Results * ZIO PATCH MAIL OUT (04/03/2024 9:35 AM CDT) Anatomical Region Laterality Modality Other Narrative 04/03/2024 9:38 AM CDT 14-day vehicle monitor technician. Single 4-beat VT run. The monitor was activated by the patient in association with various rhythms: SR, brief event of accelerated junctional rhythm, the above single 4-beat VT run and sinus rhythm with single ectopic beats. Catie Cosme MD [facility] ORDERABLES Final Result documented in this encounter Visit Diagnoses Diagnosis Pre-syncope- Primary Syncope and collapse Palpitations Tachycardia Tachycardia, unspecified Pre-syncope Syncope and collapse Palpitations Tachycardia Tachycardia, unspecified documented in this encounter Care Teams Roads And Parking Lots Sweeper Operator Relationship Specialty Start Date End Date Catie Cosme MD [facility] [address] [place] [address] PCP - General Internal Medicine 03/09/24 documented as of this encounter
--- OUTSIDE RECORDS SUMMARY | 2024-08-28 02:24 | XMS_ITS | Encounter Summary ---
Author Organization [facility] Address [address] [facility] [place] [address] Care Team Providers Care Wireworker Name Role Phone Unknown, Provider Primary Care Provider Unavaila ble Unknown, Provider Unavailable Unavailable Reason for Visit * Reason Onset Date Comments Follow-up 10/07/2018 Encounter Details Date Type Department Care Team (Late st Contact Info) Description 10/07/2018 Telephone [facility] AT [address] [address] Provider, Dyllan Eric [place] Follow-up Social History Tobacco Use Types Packs/Day Years Used Date Smoking Tobacco: Never Smokeless Tobacco: Never Sex and Gender Information Value Date Recorded Sex Assigned at Not on file Gender Identity Not on file Sexual Orientation Not on file documented as of this encounter Plan of Treatment Upcoming Encounters Date Type Department Care Team (Late st Contact Info) Description 10/07/2024 10:40 AM PATIENT RELATIONS REPRESENTATIVE Office Visit [facility] Neurosciences [address] [place] [address] Julia Quiles MD [address] [place] [address] documented as of this encounter Visit Diagnoses Not on filedocumented in this encounter Care Teams Wireworker Relationship Specialty Start Date End Date Unknown, Provider PCP - General 10/19/16 05/18/24 Unknown, Provider 2/18/17 documented as of this encounter
--- OUTSIDE RECORDS SUMMARY | 2024-08-28 02:24 | XMS_ITS | Encounter Summary ---
Author Organization [place] Address [address] [place] [address] Care Team Providers Care Planning Rn Name Role Phone Catie Cosme MD Primary Care Provider [phone] Reason for Referral * Consultation (Routine) - Pending Review Specialty Diagnoses / Procedures Referred By Contac t Referred To Contact Endocrinology, Diabetes, and Metabolism Diagnoses Abnormal TSH Catie Cosme MD [place] [id number] Phone: tel: fax: Referral ID Status Reason Start Date Expiration Date V isits Requested Visits Authorized [id number] Pending Review 05/24/2024 05/24/2025 1 1 Question Answer Reason for Referral: Thyroid Thyroid: Abnormal Thyroid Test Scheduling Instructions: [facility] will call you to coordinate your care as prescribed by the provider. If you don? t hear from a sales representative graphic art within 2 business days, please call [phone]. Comments Referral Transcribed by external fax Provider: Catie Cosme affiliated with [facility] at [address] [place], [place] [id number]. VA: No If yes was is the VA Authorization Number: Phone number: [phone] Fax number: [phone] Please be aware that coverage of these services is subject to the terms and limitations of your health insurance plan. Call member services at your health plan with any benefit or coverage questions. [facility] will call you to coordinate your care as prescribed by the provider. If you don? t hear from a sales representative graphic art within 2 business days, please call [phone]. Encounter Details Date Type Department Care Team (Late st Contact Info) Description 05/24/2024 Transcribe Orders GENERIC EXTERNAL DATA DEPARTMENT Provider, Generic External Data Abnormal TSH (Primary Dx) Social History Tobacco Use Types Packs/Day Years [...] Description 11/08/2024 10:00 AM CDT Virtual Visit [facility] [address] [facility] [address] [place] [address] Catie Cosme MD [facility] [address] [place] [address] Marlen Raymundo MD [address] [place] [address] Scheduled Referrals Name Type Priority Associated Diagnoses Orde r Schedule Adult Endocrinology Senior Net Software Developer Referral Referral Routine Abnormal TSH Expected: 05/24/2024 (Approximate), Expires: 05/24/2025 documented as of this encounter Visit Diagnoses Diagnosis Abnormal TSH- Primary Other abnormal clinical finding documented in this encounter Care Teams Planning Rn Relationship Specialty Start Date End Date Catie Cosme MD [facility] [address] [place] [address] PCP - General Internal Medicine 03/09/24 documented as of this encounter
--- OUTSIDE RECORDS SUMMARY | 2024-08-28 02:24 | XMS_ITS | Encounter Summary ---
Author Organization [facility] Address [address] [place] [address] Care Team Providers Care Branch Service Representative Name Role Phone Unknown, Provider Primary Care Provider Unavaila ble Unknown, Provider Unavailable Unavailable Encounter Details Date Type Department Care Team (Late st Contact Info) Description 06/09/[address] [facility] [address] [place] [address] Ava Barksdale MA Numbness Social History Tobacco Use Types Packs/Day Years Used Date Smoking Tobacco: Never Smokeless Tobacco: Never Sex and Gender Information Value Date Recorded Sex Assigned at Not on file Gender Identity Not on file Sexual Orientation Not on file documented as of this encounter Plan of Treatment Upcoming Encounters Date Type Department Care Team (Late st Contact Info) Description 10/07/2024 10:40 AM MARKETING SALES REPRESENTATIVE Office Visit [facility] [address] [place] [address] Julia Quiles MD [address] [place] [phone] documented as of this encounter Visit Diagnoses Diagnosis Numbness- Primary Disturbance of skin sensation documented in this encounter Care Teams Branch Service Representative Relationship Specialty Start Date End Date Unknown, Provider PCP - General 10/19/16 05/18/24 Unknown, Provider 10/19/16 documented as of this encounter
--- OUTSIDE RECORDS SUMMARY | 2024-08-28 02:24 | XMS_ITS | Encounter Summary ---
Author Organization [facility] Address [address] [place] [address] Care Team Providers Care Western Felt Hat Blocker Name Role Phone Catie Cosme MD Primary Care Provider Catie Cosme MD Unavailable [phone] Marlen Raymundo MD Unavailable [phone] Encounter Details Date Type Department Care Team (Late Contact Info) Description 07/01/2024 10:15 AM CDT Lab [facility] [address] [facility] [address] [place] [address] Orthostasis Social History Tobacco Use Types Packs/Day [...] Description 11/08/2024 10:00 AM CDT Virtual Visit [facility] [address] [place] [address] Catie Cosme MD [facility] [address] [place] [address] Marlen Raymundo MD [address] [place] [address] documented as of this encounter Procedures Procedure Name Priority Date/Time Associated Diagnosis Comments BASIC METABOLIC PANEL Routine 07/01/2024 10:08 AM CDT [facility] documented in this encounter Results * Basic metabolic panel (07/01/2024 10:08 AM CDT) Sodium 140 135 - 145 mmol/L 07/01/2024 10:51 AM CDT [facility] Potassium 3.8 3.4 - 5.3 mmol/L 07/01/2024 10:51 AM CDT [facility] Chloride 106 98 - 107 mmol/L 07/01/2024 10:51 AM CDT [facility] Carbon Dioxide (CO2) 22 22 - 29 mmol/L 07/01/2024 10:51 AM CDT [facility] Anion Gap 12 7 - 15 mmol/L 07/01/2024 10:51 AM CDT [facility] Urea Nitrogen 10.0 6.0 - 20.0 mg/dL 07/01/2024 10:51 AM CDT [facility] Creatinine 0.69 0.51 - 0.95 mg/dL 07/01/2024 10:51 AM CDT [facility] GFR Estimate >90 >60 mL/min/1.7 3m2 07/01/2024 10:51 AM CDT [facility] Comment:eGFR calculated usin g 2020 CKD-EPI equation. Calcium 8.8 8.8 - 10.4 mg/dL 07/01/2024 10:51 AM CDT [facility] Comment:Reference intervals for this test were updated on 03/16/2024 to reflect our healthy population more accurately. There may be differences in the flagging of prior results with similar values performed with this method. Those prior results can be interpreted in the context of the updated reference intervals. Glucose 73 70 - 99 mg/dL 07/01/2024 10:51 AM CDT [facility] Blood STRUCTURE OF LEFT UPPER LIMB / Unknown Venipuncture / Unknown 07/01/2024 10:08 AM CDT 07/01/2024 10:11 AM CDT us Vinay Douglas MD LAB - BLOOD ORDERABLES Final Result [facility] Acute Care Lab [address] (1st floor, no room number) [place] [address], [facility] documented in this encounter Visit Diagnoses Diagnosis Orthostasis Orthostatic hypotension documented in this encounter Care Teams Western Felt Hat Blocker Relationship Specialty Start Date End Date Catie Cosme MD [facility] [address] [place] [address] PCP - General Internal Medicine 03/09/24 Catie Cosme MD [facility] [address] [place] [address] Internal Medicine 05/25/24 Marlen Raymundo MD [address] [place] [address] Hospitalist Endocrinology, Diabetes, and Metabolism 05/25/24 documented as of this encounter
--- OUTSIDE RECORDS SUMMARY | 2024-08-28 02:24 | XMS_ITS | Referral Summary ---
Author Organization [facility] Address [address] [place] [address] Care Team Providers Care System Development Engineer Name Role Phone Catie Cosme MD Primary Care Provider [phone] Catie Cosme MD Unavailable [phone] Marlen Raymundo MD Unavailable Nevin Figueroa PA-C Unavailable [phone] Encounters Date Type Department Care Team Description 07/14/2024 Travel 07/14/2024 12:40 PM JANITORIAL MANAGER Office Visit [facility] [address] [facility] [address] [place] [phone] Vinay Douglas MD Stebbing, Haley, PA-C Orthostasis 07/01/2024 Travel 07/01/2024 10:15 AM CDT Lab [facility] [address] [facility] [address] [place] [phone] Orthostasis 06/24/2024 Travel 06/24/2024 3:15 PM CDT Office Visit [address] [place] [phone] Vinay Douglas MD [facility] (Primary Dx) from Last 3 Months Allergies Active Allergy Reactions Criticality Noted Date Comments Contrast Dye Medium 05/06/2024 Medications propranolol (INDERAL) 10 MG tablet Take 10 mg by mouth daily. Active LO LOESTRIN FE 1 MG-10 MCG / 10 MCG TABS Take 1 tablet by mouth daily. 07/09/2023 Active Social History Tobacco Use Types Packs/Day Years [...] Comments Blood Pressure 118/80 07/14/2024 2:09 PM JANITORIAL MANAGER Pulse 61 07/14/2024 2:09 PM JANITORIAL MANAGER Temperature - - Respiratory Rate - - Oxygen Saturation 98% 07/14/2024 2:09 PM JANITORIAL MANAGER Inhaled Oxygen Concentration - - Weight 79.4 kg (175 lb) 07/14/2024 2:09 PM JANITORIAL MANAGER Height 174.2 cm (5' 8.6 ) 06/24/2024 3:13 PM CDT Body Mass Index 26.15 06/24/2024 3:13 PM CDT Plan of Treatment Upcoming Encounters Date Type Department Care Team (Late st Contact Info) Description 11/08/2024 10:00 AM CDT Virtual Visit [facility] [address] [facility] [address] [place] [phone] Catie Cosme MD [facility] [address] [place] [address] Marlen Raymundo MD [address] [place] [address] Procedures Procedure Name Priority Date/Time Associated Diagnosis Comments BASIC METABOLIC PANEL Routine 07/01/2024 10:08 AM CDT [facility] from Last 3 Months Results * Basic metabolic panel (07/01/2024 10:08 AM CDT) Sodium 140 135 - 145 mmol/L 07/01/2024 10:51 AM CDT LABORATORY Potassium 3.8 3.4 - 5.3 mmol/L 07/01/2024 10:51 AM CDT LABORATORY Chloride 106 98 - 107 mmol/L 07/01/2024 10:51 AM CDT LABORATORY Carbon Dioxide (CO2) 22 22 - 29 mmol/L 07/01/2024 10:51 AM CDT LABORATORY Anion Gap 12 7 - 15 mmol/L 07/01/2024 10:51 AM CDT [facility] Urea Nitrogen 10.0 6.0 - 20.0 mg/dL 07/01/2024 10:51 AM CDT LABORATORY Creatinine 0.69 0.51 - 0.95 mg/dL 07/01/2024 10:51 AM CDT [facility] GFR Estimate >90 >60 mL/min/1.7 3m2 07/01/2024 10:51 AM CDT LABORATORY Comment:eGFR calculated usin 2020 CKD-EPI equation. Calcium 8.8 8.8 - 10.4 mg/dL 07/01/2024 10:51 AM CDT LABORATORY Comment:Reference intervals for this test were updated on 03/16/2024 to reflect our healthy population more accurately. There may be differences in the flagging of prior results with similar values performed with this method. Those prior results can be interpreted in the context of the updated reference intervals. Glucose 73 70 - 99 mg/dL 07/01/2024 10:51 AM CDT LABORATORY Blood STRUCTURE OF LEFT UPPER LIMB / Unknown Venipuncture / Unknown 07/01/2024 10:08 AM CDT 07/01/2024 10:11 AM CDT us Vinay Douglas MD LAB - BLOOD ORDERABLES Final Result LABORATORY [facility] Acute Care Lab [address] [facility] Lab (1st floor, no room number) [place] [address], [facility] from Last 3 Months [place] [address] Care Teams System Development Engineer Relationship Specialty Start Date End Date Catie Cosme MD [facility] [address] [place] [address] PCP - General Internal Medicine 03/09/24 Catie Cosme MD [facility] [address] [place] [address] Internal Medicine 05/25/24 Marlen Raymundo MD [address] [place] [address] Hospitalist Endocrinology, Diabetes, and Metabolism 05/25/24 Nevin Figueroa PA-C [address] [place] [address] Assigned Heart and Vascular Provider 07/24/24
--- OUTSIDE RECORDS SUMMARY | 2024-08-28 02:24 | XMS_ITS | Encounter Summary ---
Author Organization [facility] Address [address] [place] [address]. [place] [address] Care Team Providers Care Guyline Operator Name Role Phone Catie Cosme MD Primary Care Provider [phone] Encounter Details Date Type Department Care Team (Late st Contact Info) Description 03/07/2024 Medical Correspondence [facility] [address] [place] [address] Scan, Non-Provider Social History Tobacco Use Types Packs/Day Years [...] Description 11/08/2024 10:00 AM CDT Virtual Visit [facility] [address] [place] [address] Catie Cosme MD [facility] [address] [place] [address] Marlen Raymundo MD [address] [place] [address] documented as of this encounter Visit Diagnoses Not on filedocumented in this encounter Care Teams Guyline Operator Relationship Specialty Start Date End Date Catie Cosme MD [facility] [address] [place] [address] PCP - General Internal Medicine 03/09/24 documented as of this encounter
--- OUTSIDE RECORDS SUMMARY | 2024-08-28 02:24 | XMS_ITS | Encounter Summary ---
Author Organization [facility] Address [address] [place] [address] Care Team Providers Care Cops Name Role Phone Unknown, Provider Primary Care Provider Unavaila ble Unknown, Provider Unavailable Unavailable Reason for Visit * Reason Comments Sore Throat Fever Encounter Details Date Type Department Care Team (Late st Contact Info) Description 10/19/2016 3:40 PM APPLICATION DEFENSE MANAGER Office Visit [facility] [address] [address] Provider, Dyllan Eric Nunnelly Acute pharyngitis, unspecified etiology (Primary Dx) Social History Tobacco Use Types Packs/Day Years Used Date Smoking Tobacco: Never Sex and Gender Information Value Date Recorded Sex Assigned at Not on file Gender Identity Not on file Sexual Orientation Not on file documented as of this encounter Last Filed Vital Signs Vital Sign Reading Time Taken Comments Blood Pressure 104/66 10/19/2016 4:13 PM APPLICATION DEFENSE MANAGER Pulse 98 10/19/2016 4:13 PM APPLICATION DEFENSE MANAGER Temperature 36.6 ??C (97.9 ??F) 10/19/2016 4:13 PM CS T Respiratory Rate 16 10/19/2016 4:13 PM APPLICATION DEFENSE MANAGER Oxygen Saturation 98% 10/19/2016 4:13 PM APPLICATION DEFENSE MANAGER Inhaled Oxygen Concentration - - Weight 80.3 kg (177 lb) 10/19/2016 4:13 PM APPLICATION DEFENSE MANAGER Height 175.3 cm (5' 9 ) 10/19/2016 4:13 PM APPLICATION DEFENSE MANAGER Body Mass Index 26.14 10/19/2016 4:13 PM APPLICATION DEFENSE MANAGER documented in this encounter Patient Instructions * Patient Instructions* Bree Charles, YARDAGE CONTROL OPERATOR FORMING-PROFESSOR OF GENETICS - 10/19/2016 4:33 PM APPLICATION DEFENSE MANAGER Pharyngitis FLOORING MECHANIC: Pharyngitis , or sore throat, is inflammation of the tissues and structures in your pharynx (throat). Pharyngitis is most often caused by bacteria. It may also be caused by a cold or flu virus. Othercauses include smoking, allergies, or acid reflux. Signs and symptoms that may occur with pharyngitis: ?? Sore throat or pain when you swallow ?? Fever, chills, and body aches ?? Hoarse or raspy voice ?? Cough, runny or stuffy nose, itchy or watery eyes ?? Headache ?? Upset stomach and loss of appetite ?? Mild neck stiffness ?? Swollen glands that feel like hard lumps when you touch your neck ?? White and yellow pus-filled blisters in the back of your throat Call 911 for any of the following: ?? You have trouble breathing or swallowing because your throat is swollen or sore. Seek care immediately if: ?? You are drooling because it hurts too much to swallow. ?? Your fever is higher than 102?F (39?C) or lasts longer than 3 days. ?? You are confused. ?? You taste blood in your throat. Contact your healthcare provider if: ?? Your throat pain gets worse. ?? You have a painful lump in your throat that does not go away after 5 days. ?? Your symptoms do not improve after 5 days. ?? You have questions or concerns about your condition or care. Treatment for pharyngitis: Viral pharyngitis will go away on its own without treatment. Your sore throat should start to feel better in 3 to 5 days for both viral and bacterial infections. You may need any of the following: ?? Antibiotics treat a bacterial infection. ?? NSAIDs , such as ibuprofen, help decrease swelling, pain, and fever. NSAIDs can cause stomach bleeding or kidney problems in certain people. If you take blood thinner medicine, always ask your healthcare provider if NSAIDs are safe for you. Always read the medicine label and follow directions. ?? Acetaminophen decreases pain and fever. It is available without a doctor's order. Ask how much to take and how often to take it. Follow directions. Acetaminophen can cause liver damage if not taken correctly. Manage your symptoms: ?? Gargle salt water. Mix ?? teaspoon salt in an 8 ounce glass of warm water and gargle. This may help decrease swelling in your throat. ?? Drink liquids as directed. You may need to drink more liquids than usual. Liquids may help soothe your throat and prevent dehydration. Ask how much liquid to drink each day and which liquids are best for you. ?? Use a cool-steam humidifier to help moisten the air in your room and calm your cough. ?? Soothe your throat with cough drops, ice, soft foods, or popsicles. Prevent the spread of pharyngitis: Cover your mouth and nose when you cough or sneeze. Do not sharefood or drinks. Wash your hands often. Use soap and water. If soap and water are unavailable, use an alcohol based hand mobile architect. Follow up with your healthcare provider as directed: Write down your questions so you remember to ask them during your visits. ?? 2016 MD [employer]ingo. Information is for End User's use only and may not be sold, redistributed or otherwise used for commercial purposes. All illustrations and images included in CareNotes?? are the copyrighted property of [employer] or [employer]. The above information is an medicaid nurse only. It is not intended as medical advice for individual conditions or treatments. Talk to your doctor, nurse or pharmacist before following any medical regimen to see if it is safe and effective for you. ICATION DEFENSE MANAGER documented in this encounter Progress Notes * Bree Charles APRN-CNP - 10/19/2016 4:33 PM CST [facility] Chief Complaint Patient presents with ??? Sore Throat ??? Fever SUBJECTIVE: HPI Comments: Sore throat today. Low grade fever for 1 day Past Medical History Diagnosis Date ??? NEGATIVE PAST MEDICAL HISTORY - SEE PROBLEM LIST No current outpatient prescriptions on file prior to visit. No current facility-administered medications on file prior to visit. Past Surgical History Procedure Laterality Date ??? Negative surgical history History Social History ??? Marital status: Spouse name: N/A ??? Number of children: N/A ??? Years of education: N/A Occupational History ??? Not on file. Social History Main Topics ??? Smoking status: Never Smoker ??? Smokeless tobacco: Not on file ??? Alcohol use: Not on file ??? Drug use: Not on file ??? Sexual activity: Not on file Other Topics Concern ??? Not on file Social History Narrative ??? No narrative on file No family history on file. Current Outpatient Prescriptions Medication Sig Dispense Refill ??? [id number] (PRENATE AM PO) ??? Iron-Vit C-Vit [id number] Acid (IRON 100 PLUS PO) No current facility-administered medications for this visit. No Known Allergies REVIEW OF SYSTEMS: Review of Systems Constitutional: Positive for fever. HENT: Positive for sore throat. Eyes: Negative. Respiratory: Negative. OBJECTIVE: General appearance: alert, well appearing, and in no distress. BP 104/66 (BP SITE: LEFT ARM, BP POSITION: SITTING, BP CUFF SIZE: Adult) Pulse 98 Temp 97.9 ??F (Oral) Resp 16 Ht 1.753 m (5' 9 ) Wt 80.3 kg (177 lb) SpO2 98% BMI 26.14 kg/m2 Physical Exam Constitutional: She is well-developed, well-nourished, and in no distress. HENT: Head: Normocephalic. Right Ear: Hearing, tympanic membrane, external ear and ear canal normal. Left Ear: Hearing, tympanic membrane, external ear and ear canal normal. Nose: Rhinorrhea present. Mouth/Throat: Posterior oropharyngeal erythema present. Neck: Normal range of motion. Cardiovascular: Normal rate and regular rhythm. Pulmonary/Chest: Effort normal. ASSESSMENT: Office Visit on 10/19/16 STREP A SCREEN Result Value Ref Range Strep A Rapid Negative Negative Strep A INTERNAL CONTROL Absent Lot Number [id number] Expiration Date [id number] Encounter Diagnosis Name Primary? Acute pharyngitis, unspecified etiology Yes PLAN: Orders Placed This Encounter ??? STREP A SCREEN Can use Equal amounts of liquid benadryl and Maalox garls with 1 tables ppon every 6 hurs ad neededfor sore throat ICATION DEFENSE MANAGER documented in this encounter Plan of Treatment Upcoming Encounters Date Type Department Care Team (Late st Contact Info) Description 10/07/2024 10:40 AM APPLICATION DEFENSE MANAGER Office Visit [facility] [address] [place], [place] [address] Julia Quiles MD [address] [place] [phone] documented as of this encounter Procedures Procedure Name Priority Date/Time Associated Diagnosis Comments STREP A SCREEN - POINT OF CARE (AMB) STL Routine 10/19/2016 Acute pharyngitis, unspecified etiology documented in this encounter Results * STREP A SCREEN (10/19/2016) Strep A Rapid POCT Negative Negative Strep A Internal Control Absent Lot # [id number] Expiration Date Throat ENTIRE THROAT (SURFACE REGION OF NECK) / Unknown 10/19/2016 [facility] - POINT OF CARE ORDERABLES documented in this encounter Visit Diagnoses Diagnosis Acute pharyngitis, unspecified etiology- Primary documented in this encounter Care Teams Cops Relationship Specialty Start Date End Date Unknown, Provider PCP - General 10/19/16 05/18/24 Unknown, Provider 10/19/16 documented as of this encounter
--- OUTSIDE RECORDS SUMMARY | 2024-08-28 02:24 | XMS_ITS | Encounter Summary ---
Author Organization [place] Address [facility] [place] [address] Care Team Providers Care Countersinker Balance Screw Hole Name Role Phone Catie Cosme MD Primary Care Provider [phone] Catie Comse MD Unavailable Marlen Raymundo MD Unavailable [phone] Encounter Details Date Type Department Care Team (Latest Contact Info) Description 07/14/2024 Travel Social History Tobacco Use Types Packs/Day [...] Description 11/08/2024 10:00 AM CDT Virtual Visit [facility] [address] [place] [address] Catie Cosme MD [facility] [address] [place] [address] Marlen Raymundo MD [address] [place] [address] documented as of this encounter Visit Diagnoses Not on filedocumented in this encounter Care Teams Countersinker Balance Screw Hole Relationship Specialty Start Date End Date Catie Cosme MD [facility] [address] [place] [address] PCP - General Internal Medicine 03/09/24 Catie Cosme MD [place] [address] [place] [address] Internal Medicine 05/25/24 Marlen Raymundo MD [address] [address] Hospitalist Endocrinology, Diabetes, and Metabolism 05/25/24 documented as of this encounter
--- OUTSIDE RECORDS SUMMARY | 2024-08-28 02:24 | XMS_ITS | Encounter Summary ---
Author Organization [place] Address [facility] [place] [address] Care Team Providers Care Sales Assistant Displays Name Role Phone Catie Cosme MD Primary Care Provider [phone] Catie Cosme MD Unavailable [phone] Marlen Raymundo MD Unavailable [phone] Encounter Details Date Type Department Care Team (Latest Contact Info) Description 07/01/2024 Travel Social History Tobacco Use Types Packs/Day [...] Description 11/08/2024 10:00 AM CDT Virtual Visit [facility] [address] [place] [address] Catie Cosme MD [facility] [address] [place] [address] Marlen Raymundo MD [address] [place] [address] documented as of this encounter Visit Diagnoses Not on filedocumented in this encounter Care Teams Sales Assistant Displays Relationship Specialty Start Date End Date Catie Cosme MD [facility] [address] [place] [address] PCP - General Internal Medicine 03/09/24 Catie Cosme MD [place] [address] [place] [address] Internal Medicine 05/25/24 Marlen Raymundo MD [address] [address] Hospitalist Endocrinology, Diabetes, and Metabolism 05/25/24 documented as of this encounter
--- OUTSIDE RECORDS SUMMARY | 2024-08-28 02:24 | XMS_ITS | Patient Health Summary ---
Author Organization [facility] Address [address] [facility] [place] [address] Care Team Providers Care Radar Engineering Teacher Name Role Phone Unknown, Provider Unavailable Unavailable Julia Quiles MD Unavailable [phone] Catie Cosme Primary Care Provider [phone] Note from [facility],non-owned Affiliates and Associated Physician Practices is amultiple site organization consisting of ambulatory clinics and hospital sitesin [place], [place], [place] and [place]. This disclosure is being madepursuant to the Care Everywhere program and may not contain all information available regarding this patient. Last updated 18.[facility] Allergies * Contrast-Gadolinium Agents For Mri(Urticaria,Itching,Rash) -Medium Criticality * Ofloxacin(Other) Medications * Be aware that medications may not be up to date on this document. Alwaysverify current medications with the patient. * Multiple Minerals-Vitamins (CALCIUM & VIT D3 BONE HEALTH PO) Take by mouth once daily * Lo Loestrin Fe 1 MG-10 MCG / 10 MCG tablet Take 1 (one) tablet by mouth once daily * multivitamin daily tablet Take 1 (one) tablet by mouth daily with food * propranolol (Inderal) 10 MG tablet(Started 04/06/2024) Take 1 (one) tablet by mouth 2 times daily 5 refills by 04/06/2025 * predniSONE (Deltasone) 20 MG tablet(Started 04/28/2024) Take 2 tablets by mouth 1 day prior to procedure and 2 tablets day of procedure Active Problems Problem Noted Date Diagnosed Date H/O seasonal allergies 04/06/2024 COVID-19 09/01/2020 Social History Tobacco Use Types Packs/Day Years [...] T Respiratory Rate 16 10/05/2018 5:59 PM REGISTERED NURSE Oxygen Saturation 98% 10/05/2018 5:59 PM REGISTERED NURSE Inhaled Oxygen Concentration - - Weight 72.6 kg (160 lb) 04/06/2024 9:42 AM CDT Height 175.3 cm (5' 9 ) 04/06/2024 9:42 AM CDT Body Mass Index 23.63 04/06/2024 9:42 AM CDT Procedures * MRI BRAIN WWO CONTRAST(Performed 05/19/2024) Performed for POTS (postural orthostatic tachycardia syndrome), Generalized hypermobility of joints, Vestibular migraine, CSF leak * MRI THORACIC SPINE WO CONTRAST(Performed 05/19/2024) Performed for POTS (postural orthostatic tachycardia syndrome), Generalized hypermobility of joints, Vestibular migraine, CSF leak * MRI LUMBAR SPINE WO CONTRAST(Performed 05/19/2024) Performed for POTS (postural orthostatic tachycardia syndrome), Generalized hypermobility of joints, Vestibular migraine, CSF leak * MRI CERVICAL SPINE WO CONTRAST(Performed 05/19/2024) Performed for POTS (postural orthostatic tachycardia syndrome), Generalized hypermobility of joints, Vestibular migraine, CSF leak * INFLUENZA A+B - POINT OF CARE (AMB)(Performed 10/05/2018) Performed for Strep pharyngitis * STREP A SCREEN - POINT OF CARE (AMB) STL(Performed 10/05/2018) Performed for Strep pharyngitis * STREP A SCREEN - POINT OF CARE (AMB) STL(Performed 10/19/2016) Performed for Acute pharyngitis, unspecified etiology Results * MRI Brain Wwo Contrast (05/19/2024 [...] Julia Quiles MD MR ORDERABLES * MRI Thoracic Spine [...] PM Julia Quiles MD MR ORDERABLES * INFLUENZA A+B - POINT OF CARE (AMB) (10/05/2018 6:10 PM REGISTERED NURSE) Influenza A Antigen Rapid Negative Negative Influenza B Antigen Rapid Negative Negative Influenza Internal Control present NEGATIVE - POSITIVE Influenza Lot Number [id number] Influenza Expiration Date 05 11 2020 Other NASOPHARYNGEAL SWAB / Unknown 10/05/2018 6:10 PM REGISTERED NURSE Enrique Khan PROGRAMMER ANALYST HEALTH IT-INCINERATOR PLANT LABORER LAB - POINT OF CA RE ORDERABLES * (ABNORMAL) STREP A SCREEN - POINT OF CARE (AMB) STL (10/05/2018 6:05 PM REGISTERED NURSE) Only the most recent of2 resultswithin the time period is included. Strep A Rapid POCT Positive(A) Negative Strep A Internal Control Present Lot # [id number] Expiration Date 03 31 2020 Throat ENTIRE THROAT (SURFACE REGION OF NECK) / Unknown 10/05/2018 6:05 PM REGISTERED NURSE Enrique Khan APRN-INCINERATOR PLANT LABORER LAB - POINT OF CA RE ORDERABLES Care Teams Radar Engineering Teacher Relationship Specialty Start Date End Date Catie Cosme [address] [place] [phone] PCP - General 05/19/24 Unknown, Provider 10/19/16 Julia Quiles MD [address] [facility] [address] [facility] [address] [place], [place] [phone] Neurology 03/29/24
--- OUTSIDE RECORDS SUMMARY | 2024-08-28 02:24 | XMS_ITS | Referral Summary ---
Author Organization [facility] Address [address] [facility] [place] [address] Care Team Providers Care Rn Lactation Consultant Name Role Phone Unknown, Provider Unavailable Unavailable Julia Quiles MD Unavailable [phone] Catie Cosme Primary Care Provider [phone] Source Comments [facility],non-owned Affiliates and Associated Physician Practices is amultiple site organization consisting of ambulatory clinics and hospital sitesin [place], [place], [place] and [place]. This disclosure is being madepursuant to the Care Everywhere program and may not contain all information available regarding this patient. Last updated 18.[facility] Allergies Active Allergy Reactions Criticality Noted [...] 04/06/2024 COVID-19 09/01/2020 Overview (04/06/2024): Spring 2020,01/2023 Social History Tobacco Use Types Packs/Day Years [...] T Respiratory Rate 16 10/05/2018 5:59 PM GLASS MOULD CLEANER Oxygen Saturation 98% 10/05/2018 5:59 PM GLASS MOULD CLEANER Inhaled Oxygen Concentration - - Weight 72.6 kg (160 lb) 04/06/2024 9:42 AM CDT Height 175.3 cm (5' 9 ) 04/06/2024 9:42 AM CDT Body Mass Index 23.63 04/06/2024 9:42 AM CDT Plan of Treatment Upcoming Encounters Date Type Department Care Team (Late st Contact Info) Description 10/07/2024 10:40 AM GLASS MOULD CLEANER Office Visit [facility] [address] [place] [address] Julia Quiles MD [address] [place] [address] Care Teams Rn Lactation Consultant Relationship Specialty Start Date End Date Catie [place] [address] [place] [phone] PCP - General 05/19/24 Unknown, Provider 10/19/16 Julia Quiles MD [address] [place] [phone] Neurology 03/29/24
--- OUTSIDE RECORDS SUMMARY | 2024-08-28 02:24 | XMS_ITS | Encounter Summary ---
Author Organization [facility] Address [address] [facility] [place] [address] Care Team Providers Care Entertainment Manager Name Role Phone Unknown, Provider Primary Care Provider Unavaila ble Unknown, Provider Unavailable Unavailable Reason for Visit * Reason Onset Date Comments Follow-up 10/21/2016 Encounter Details Date Type Department Care Team (Late st Contact Info) Description 10/21/2016 Telephone [facility] [address] [address] Joana Allen Follow-up Social History Tobacco Use Types Packs/Day Years Used Date Smoking Tobacco: Never Sex and Gender Information Value Date Recorded Sex Assigned at Not on file Gender Identity Not on file Sexual Orientation Not on file documented as of this encounter Plan of Treatment Upcoming Encounters Date Type Department Care Team (Late st Contact Info) Description 10/07/2024 10:40 AM PROCESS SAFETY SPECIALIST Office Visit [facility] [address] [place] [phone] Julia Quiles MD [address] [place] [phone] documented as of this encounter Visit Diagnoses Not on filedocumented in this encounter Care Teams Entertainment Manager Relationship Specialty Start Date End Date Unknown, Provider PCP - General 10/19/16 05/18/24 Unknown, Provider 10/19/16 documented as of this encounter
--- OUTSIDE RECORDS SUMMARY | 2024-08-28 02:24 | XMS_ITS | Encounter Summary ---
Author Organization [facility] Address [address] [facility] [place] [address] Care Team Providers Care Supervisor Braiding Name Role Phone Unknown, Provider Primary Care Provider Unavaila ble Unknown, Provider Unavailable Unavailable Julia Quiles MD Unavailable Encounter Details Date Type Department Care Team (Latest Contact Info) Description 04/06/2024 Travel Social History Tobacco Use Types Packs/Day [...] st Contact Info) Description 10/07/2024 10:40 AM BUSINESS DEVELOPMENT RECRUITER Office Visit [facility] [address] [place] [phone] Julia Quiles MD [address] [place] [address] documented as of this encounter Visit Diagnoses Not on filedocumented in this encounter Care Teams Supervisor Braiding Relationship Specialty Start Date End Date Unknown, Provider PCP - General 10/19/16 05/18/24 Unknown, Provider 10/19/16 Julia Quiles MD [address] [place] [phone] Neurology 03/29/24 documented as of this encounter
--- OUTSIDE RECORDS SUMMARY | 2024-08-28 02:24 | XMS_ITS | Encounter Summary ---
Author Organization [place] Address [facility] [place] [address] Care Team Providers Care Manager Intermediate Name Role Phone Catie Cosme MD Primary Care Provider [phone] Catie Cosme MD Unavailable [phone] Marlen Raymundo MD Unavailable [phone] Reason for Referral * Consultation (Routine: Next available opening) - Pending Review Specialty Diagnoses / Procedures Referred By Contac t Referred To Contact Cardiovascular Disease Diagnoses Orthostasis Vinay Douglas MD [address] [facility] [address] [place] [address] Phone: tel: fax: Referral ID Status Reason Start Date Expiration Date V isits Requested Visits Authorized [id number] Pending Review 06/24/2024 06/24/2025 1 1 Scheduling Instructions Bmp before ov Question Answer Follow-up with: KRISTA Patient Scheduling Instructions: [facility] will call you to coordinate your care as prescribed by your provider. If you have concerns about scheduling, please call [phone]. Comments [facility] will call you to coordinate your care as prescribed by your provider. If you have concerns about scheduling, please call [phone]. Reason for Visit * Reason Comments New Patient Evaluation for POTS Encounter Details Date Type Department Care Team (Late st Contact Info) Description 06/24/2024 3:15 PM CDT Office Visit [facility] [address] [place] [phone] Vinay Douglas MD [address] [facility] [address] [place] [phone] Orthostasis (Primary Dx) Social History Tobacco Use Types [...] Sign Reading Time Taken Comments Blood Pressure 122/82 06/24/2024 3:13 PM CDT Pulse 72 06/24/2024 3:13 PM CDT Temperature - - Respiratory Rate - - Oxygen Saturation 100% 06/24/2024 3:13 PM CDT on room air Inhaled Oxygen Concentration - - Weight 77.6 kg (171 lb) 06/24/2024 3:13 PM CDT Height 174.2 cm (5' 8.6 ) 06/24/2024 3:13 PM CDT Body Mass Index 25.55 06/24/2024 3:13 PM CDT documented in this encounter Progress Notes * Vinay Douglas MD - 06/24/2024 3:15 PM CDT HPI and Plan: 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 She is referred in for possible POTS. 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 She has had extensive workup with echocardiograms EKGs CAT scans of the chest and brain MRI no specific diagnosis was made. She has not had a formal tilt table study. She was placed on low-dose Inderal which may or may not have helped somewhat. On exam today I actually do not notice anything irregular no murmurs good pulses carotid sinus massage was negative in terms of simulated tilt table I had her lay flat for several minutes supine heart rate is between 68 and 72 and systolic blood pressures between 111 and 118 then I had her stand and I did serial blood pressure and heart rate checks over the course of 7 to 8 minutes initially upon standing heart rate went to 76 blood pressure 112/68 the highest heart rate I got during this 8-minute stand was 80 and the lowest blood pressure was 102/60. She is not having symptoms with this At this point she does not appear to have POTS syndrome although again this was not a formal tilt table her clinical story sounds much more like neurally mediated syncope or vasovagal but was a little unusual as when it occurs it lasts for days on and and then goes away completely ofttimes there yissel classic trigger of needles or blood draw but not always. Again I feel that this is not consistent with POTS syndrome but may be some form of autonomic dysfunction or vasovagal. She is already using support stockings she is already on low-dose beta-tristian.I am going to start her empirically on Florinef 0.15 mg on the off chance she has orthostatic hypotension triggering some of the symptoms since that the blood pressure did drop to 102 I will keep antonia the low-dose beta-tristian I told her after 5 to 7 days if her blood pressure and pulse are okay she could try going up to 0.2 mg of Florinef. She will need a BMP level in the next 7 to 10 days andwe will have a nurse practitioner see her in follow-up. I have asked her if she is able to check her blood pressure and pulse during an episode and certainly while she is on Florinef she can stand against the wall and not move up to 7 to 10 minutes and check her heart rate and blood pressure just as we simulated here in the office today. I do not think we need other advanced testing she has had thyroid levels whole panel of rheumatologic order test CTs MR freeman. Today's visit was 1 hour and 5 minutes Orders Placed This Encounter Procedures Basic metabolic panel Follow-Up with Cardiology KRISTA Orders Placed This Encounter Medications propranolol (INDERAL) 10 MG tablet Sig: Take 10 mg by mouth daily. LO LOESTRIN FE 1 MG-10 MCG / 10 MCG TABS Sig: Take 1 tablet by mouth daily. fludrocortisone (FLORINEF) 0.1 MG tablet Sig: Take 1.5 tablets (0.15 mg) by mouth daily. Dispense: 50 tablet Refill: 4 There are no discontinued medications. Encounter Diagnosis Name Primary? Orthostasis Yes CURRENT MEDICATIONS: Current Outpatient Medications Medication Sig Dispense Refill fludrocortisone (FLORINEF) 0.1 MG tablet Take 1.5 tablets (0.15 mg) by mouth daily. 50 tablet 4 LO LOESTRIN FE 1 MG-10 MCG / 10 MCG TABS Take 1 tablet by mouth daily. propranolol (INDERAL) 10 MG tablet Take 10 mg by mouth daily. ALLERGIES Allergies Allergen Reactions Contrast Dye PAST MEDICAL HISTORY: Past Medical History: Diagnosis Date Migraine Near syncope vaso vagal PAST SURGICAL HISTORY: No past surgical history on file. FAMILY HISTORY: Family History Problem Relation Age of Onset Hypertension Mother Asthma Father Thyroid Disease Father Fibromyalgia Father Myocarditis Sister No Known Problems Brother SOCIAL HISTORY: Social History Socioeconomic History Marital status: Substance and Sexual Activity Alcohol use: Not Currently Comment: prior 1 /wk Review of Systems: Skin: Negative Eyes: Negative ENT: Negative Respiratory: Negative Cardiovascular: syncope or near-syncope;Positive for;lightheadedness;dizziness;fatigue Gastroenterology: Negative Genitourinary: Negative Musculoskeletal: Negative Neurologic: Negative Psychiatric: Negative Heme/Lymph/Imm: Negative Endocrine: Negative Physical Exam: Vitals: BP 122/82 Pulse 72 Ht 1.742 m (5' 8.6 ) Wt 77.6 kg (171 lb) SpO2 100% BMI 25.55 kg/m?? Constitutional: cooperative, alert and oriented, well developed, well nourished, in no acute distress Skin: warm and dry to the touch, no apparent skin lesions or masses noted Head: normocephalic, no masses or lesions Eyes: pupils equal and round, conjunctivae and lids unremarkable, sclera white, no xanthalasma, EOMS intact, no nystagmus Lymph:No Cervical lymphadenopathy present;No thyromegaly ENT: Neck: carotid pulses are full and equal bilaterally, JVP normal, no carotid bruit CSM negative bilat Respiratory: normal breath sounds, clear to auscultation, normal A-P diameter, normal symmetry, normal respiratory excursion, no use of accessory muscles Cardiac: regular rhythm, normal S1/S2, no S3 or S4, apical impulse not displaced, no murmurs, gallops or rubs CSM negative bilat pulses full and equal, no bruits auscultated GI: abdomen soft, non-tender, BS normoactive, no mass, no HSM, no bruits Extremities and Muscular Skeletal: no deformities, clubbing, cyanosis, erythema observed;no edema Neurological: no gross motor deficits Psych: Alert and Oriented x 3 Recent Lab Results: LIPID RESULTS: Lab Results Component Value Date TRIG 57 03/05/2024 LIVER ENZYME RESULTS: No results found for: AST , ALT CBC RESULTS: No results found for: WBC , RBC , HGB , HCT , MCV , MCH , MCHC , RDW , PLT BMP RESULTS: Lab Results Component Value Date CHLORIDE 106.2 03/05/2024 A1C RESULTS: No results found for: A1C INR RESULTS: No results found for: INR CC Catie Cosme MD [facility] [place] [address] documented in this encounter Plan of Treatment Upcoming Encounters Date Type Department Care Team (Late st Contact Info) Description 11/08/2024 10:00 AM CDT Virtual Visit [facility] [address] [place] [address] Catie Cosme MD [facility] [address] [place] [address] Marlen Raymundo MD [address] [facility] [address] [place] [address] Scheduled Referrals Name Type Priority Associated Diagnoses Orde r Schedule Follow-Up with Cardiology KRISTA Referral Routine: Next available opening Orthostasis Expected: 07/01/2024 (Approximate), Expires: 06/24/2025 documented as of this encounter Results * Basic metabolic panel [...] AM CDT [facility] Comment:eGFR calculated usin 2020 CKD-EPI equation. [...] 10:08 AM CDT 07/01/2024 10:11 AM CDT Vinay Douglas MD LAB - BLOOD ORDERABLES Final Result [facility] [address] (1st floor, no room number) [place] [address], [facility] documented in this encounter Visit Diagnoses Diagnosis Orthostasis- Primary Orthostatic hypotension documented in this encounter Care Teams Manager Intermediate Relationship Specialty Start Date End Date Catie Cosme MD [facility] [address] [place] [address] PCP - General Internal Medicine 03/09/24 Catie Cosme MD [facility] [address] [place] [address] Internal Medicine 05/25/24 Marlen Raymundo MD [address] [place], [place] [address] Hospitalist Endocrinology, Diabetes, and Metabolism 05/25/24 documented as of this encounter
--- OUTSIDE RECORDS SUMMARY | 2024-08-28 02:24 | XMS_ITS | Encounter Summary ---
Author Organization [facility] Address [address] [place] [address] Care Team Providers Care Civil Preparedness Officer Name Role Phone Unknown, Provider Primary Care Provider Unavaila ble Unknown, Provider Unavailable Unavailable Reason for Visit * Reason Comments Sore Throat Encounter Details Date Type Department Care Team (Late st Contact Info) Description 10/05/2018 5:40 PM CHIEF ENGINEER Office Visit [facility] AT [address] [phone] Provider, Dyllan Eric [place] Strep pharyngitis (Primary Dx) Social History Tobacco Use Types Packs/Day Years Used Date Smoking Tobacco: Never Smokeless Tobacco: Never Sex and Gender Information Value Date Recorded Sex Assigned at Not on file Gender Identity Not on file Sexual Orientation Not on file documented as of this encounter Last Filed Vital Signs Vital Sign Reading Time Taken Comments Blood Pressure 102/68 10/05/2018 5:59 PM CHIEF ENGINEER Pulse 83 10/05/2018 5:59 PM CHIEF ENGINEER Temperature 37.1 ??C (98.8 ??F) 10/05/2018 5:59 PM CS T Respiratory Rate 16 10/05/2018 5:59 PM CHIEF ENGINEER Oxygen Saturation 98% 10/05/2018 5:59 PM CHIEF ENGINEER Inhaled Oxygen Concentration - - Weight 70.3 kg (155 lb) 10/05/2018 5:59 PM CHIEF ENGINEER Height 175.3 cm (5' 9 ) 10/05/2018 5:59 PM CHIEF ENGINEER Body Mass Index 22.89 10/05/2018 5:59 PM CHIEF ENGINEER documented in this encounter Patient Instructions * Patient Instructions* Enrique Khan, DIRECTOR OF DISTRIBUTION-CENTRIFUGE SEPARATOR TENDER - 10/05/2018 6:09 PM CHIEF ENGINEER Images from the original note were not included. Strep Throat AUTOMOBILE RELOCATION ENGINEER: Strep throat is a throat infection caused by bacteria. It is easily spread from person to person. Common symptoms include the following: ?? Sore, red, and swollen throat ?? Fever and headache ?? Upset stomach, abdominal pain, or vomiting ?? White or yellow patches or blisters in the back of your throat ?? Tender, swollen lumps on the sides of your neck or jaw ?? Throat pain when you swallow Call 911 for any of the following: ?? You have trouble breathing. Seek care immediately if: ?? You have new symptoms like a bad headache, stiff neck, chest pain, or vomiting. ?? You are drooling because you cannot swallow your spit. Contact your healthcare provider if: ?? You have a fever. ?? You have a rash or ear pain. ?? You have green, yellow-brown, or bloody mucus when you cough or blow your nose. ?? You are unable to drink anything. ?? You have questions or concerns about your condition or care. Treatment for strep throat may include antibiotic medicine to treat your strep throat. You should feel better within 2 to 3 days after you start antibiotics. You may return to work or school 24 hoursafter you start antibiotics. Manage strep throat: ?? Use lozenges, ice, soft foods, or popsicles to soothe your throat. ?? Drink juice, milk shakes, or soup if your throat is too sore to eat solid food. Drinking liquidscan also help prevent dehydration. ?? Gargle with salt water. Mix ?? teaspoon salt in a glass of warm water and gargle. This may help reduce swelling in your throat. ?? Do not smoke. Nicotine and other chemicals in cigarettes and cigars can cause lung damage and make your symptoms worse. Ask your healthcare provider for information if you currently smoke and needhelp to quit. E-cigarettes or smokeless tobacco still contain nicotine. Talk to your healthcare provider before you use these products. Prevent the spread of strep throat: ?? Wash your hands often. Use soap and water. Wash your hands after you use the bathroom, change a child's diapers, or sneeze. Wash your hands before you prepare or eat food. ?? Do not share food or drinks. Replace your toothbrush after you have taken antibiotics for 24 hours. Follow up with your healthcare provider as directed: Write down your questions so you remember to ask them during your visits. ?? Copyright [employer] 2017 Information is for End User's use only and may not be sold, redistributed or otherwise used for commercial purposes. All illustrations and images included in CareNotes?? are the copyrighted property of [employer] or [employer] The above information is an individualized education plan aide only. It is not intended as medical advice for individual conditions or treatments. Talk to your doctor, nurse or pharmacist before following any medical regimen to see if it is safe and effective for you. F ENGINEER documented in this encounter Progress Notes * Enrique Khan APRN-CNP - 10/05/2018 6:06 PM CST Subjective: Yomaira Ford is a 28 y.o. female who presents for evaluation: Chief Complaint Patient presents with ??? Sore Throat Primary Care Physician is Provider Unknown. Symptoms include Fever started on Friday, vomiting last night x1, pt also c/o body aches, fever up to 100F, and mild sore throat. Daughter has same symptoms and was dx with strep today. Onset of symptoms was 1 day ago, unchanged since that time. Pt did not get flu vaccine. She is drinking moderate amounts of fluids. Evaluation to date: none. Treatment to date: ibuprofen, tylenol No Known Allergies Outpatient Prescriptions Marked as Taking for the 10/05/18 encounter (Office Visit) with Provider, Dyllan Ruvalcaba Medication Sig ??? Iron-Vit C-Vit [id number]-[id number] Acid (IRON 100 PLUS PO) ? ? Multiple Minerals-Vitamins (CALCIUM & VIT D3 BONE HEALTH PO) ??? penicillin v potassium (VEETIDS) 500 MG tablet Take 1 tablet by mouth 2 times daily for 10 days ??? [id number] (PRENATE AM PO) Past Medical History: Diagnosis Date ??? H/O seasonal allergies Social History Social History ??? Marital status: Spouse name: N/A ??? Number of children: N/A ??? Years of education: N/A Occupational History ??? Not on file. Social History Main Topics ??? Smoking status: Never Smoker ??? Smokeless tobacco: Never Used ??? Alcohol use Not on file ??? Drug use: Not on file ??? Sexual activity: Not on file Other Topics Concern ??? Not on file Social History Narrative Merged History Encounter Medications reviewed. Review of Systems Pertinent items are noted in HPI Constitutional: Positive for fevers Eyes: Negative Ears, nose, mouth, and throat: Positive for sore throat (mild) Respiratory: Negative Cardiovascular: Negative Gastrointestinal: Negative Hematologic/lymphatic: Negative Musculoskeletal:Positive for body aches Neurological: Negative Objective: BP 102/68 (BP SITE: LEFT ARM, BP POSITION: SITTING, BP CUFF SIZE: 11) Pulse 83 Temp 98.8 ??F (37.1 ??C) (Oral) Resp 16 Ht 1.753 m (5' 9 ) Wt 70.3 kg (155 lb) SpO2 98% BMI 22.89 kg/m2 Skin: Physical Exam Exam General appearance: alert, cooperative, no distress, oriented to person, place, and time, wellappearing Head: normocephalic, without trauma Eyes: sclera and conjunctiva clear, EOMI and PERRLA, lids normal Ears: canals clear, tympanic membranes normal, hearing intact to voice Nose: nares open; no septal deviation is noted, nasal mucosa not inflamed, no maxillary tenderness Throat: lips, mucosa, and tongue normal; teeth and gums normal, mild oropharyngeal erythema, tonsils absent, uvula is midline, no exudates present, Neck: range of motion is intact, Nodes: no cervical adenopathy, non tender Lungs: breath sounds normal and symmetric; no rales or wheezes, no cough noted Heart: regular rhythm, normal S1 and S2, without murmurs, gallops or rubs Neurologic: mental status normal; alert and oriented X 3 Assessment: . Encounter Diagnoses Name Primary? Strep pharyngitis Yes Plan: Suggested symptomatic OTC remedies. Antibiotics per orders. RTC prn. Change toothbrush on Day 3 of antibiotics Warm salt water gargles PRN Educational material given on strep throat If you experience difficulty swallowing or drooling seek medical attention immediately Consider contagious until after 24hrs on antibiotics If symptoms persist on antibiotics or worsen at any time, follow up with a health care provider, clinic or emergency care Continue to follow up with Provider Unknown as directed. After Visit Summary reviewed with patient. The patient indicates understanding of these issues and agrees with the plan. Patient discharged to Home .ITALO Amin 10/05/2018 6:16 PM Orders Placed This Encounter ??? STREP A SCREEN - POINT OF CARE (AMB) STL ??? INFLUENZA A+B - POINT OF CARE (AMB) ??? penicillin v potassium (VEETIDS) 500 MG tablet Sig: Take 1 tablet by mouth 2 times daily for 10 days Dispense: 20 tablet Refill: 0 Recent Results (from the past 24 hour(s)) STREP A SCREEN - POINT OF CARE (AMB) STL Collection Time: 10/05/18 6:05 PM Result Value Ref Range Strep A Rapid POCT Positive (Abnormal) Negative Strep A Internal Control Present Lot # [id number] Expiration Date 03 31 2020 INFLUENZA A+B - POINT OF CARE (AMB) Collection Time: 10/05/18 6:10 PM Result Value Ref Range Influenza A Antigen Rapid Negative Negative Influenza B Antigen Rapid Negative Negative Influenza Internal Control present NEGATIVE - POSITIVE Influenza Lot Number [id number] Influenza Expiration Date 05 11 2020 F ENGINEER documented in this encounter Plan of Treatment Upcoming Encounters Date Type Department Care Team (Late st Contact Info) Description 10/07/2024 10:40 AM CHIEF ENGINEER Office Visit [facility] [address] [place] [address] Julia Quiles MD [address] [place] [phone] documented as of this encounter Procedures Procedure Name Priority Date/Time Associated Diagnosis Comments INFLUENZA A+B - POINT OF CARE (AMB) Routine 10/05/2018 6:10 PM CHIEF ENGINEER Strep pharyngitis STREP A SCREEN - POINT OF CARE (AMB) STL Routine 10/05/2018 6:05 PM CHIEF ENGINEER Strep pharyngitis documented in this encounter Results * INFLUENZA A+B - POINT OF CARE (AMB) (10/05/2018 6:10 PM CHIEF ENGINEER) Influenza A Antigen Rapid Negative Negative Influenza B Antigen Rapid Negative Negative Influenza Internal Control present NEGATIVE - POSITIVE Influenza Lot Number [id number] Influenza Expiration Date 05 11 2020 Other NASOPHARYNGEAL SWAB / Unknown 10/05/2018 6:10 PM CHIEF ENGINEER Enrique Khan APRN-CENTRIFUGE SEPARATOR TENDER LAB - POINT OF CA RE ORDERABLES * (ABNORMAL) STREP A SCREEN - POINT OF CARE (AMB) STL (10/05/2018 6:05 PM CHIEF ENGINEER) Strep A Rapid POCT Positive(A) Negative Strep A Internal Control Present Lot # [id number] Expiration Date 03 31 2020 Throat ENTIRE THROAT (SURFACE REGION OF NECK) / Unknown 10/05/2018 6:05 PM CHIEF ENGINEER Enrique Khna APRN-CENTRIFUGE SEPARATOR TENDER LAB - POINT OF CA RE ORDERABLES documented in this encounter Visit Diagnoses Diagnosis Strep pharyngitis- Primary Streptococcal sore throat documented in this encounter Care Teams Civil Preparedness Officer Relationship Specialty Start Date End Date Unknown, Provider PCP - General 10/19/16 05/18/24 Unknown, Provider 10/19/16 documented as of this encounter
--- OUTSIDE RECORDS SUMMARY | 2024-08-28 02:24 | XMS_ITS | Encounter Summary ---
Author Organization [place] Address [address] [place] [address]. [place] [address] Care Team Providers Care Life Skills Teacher Name Role Phone Unavailable Primary Care Provider Unavailabl e Reason for Referral * CV Cardio consult (Routine: Next available opening) - Pending Review Specialty Diagnoses / Procedures Referred By Contac t Referred To Contact Cardiovascular Disease Diagnoses Orthostatic hypotension Pre-syncope Catie Cosme MD [facility] [address] [place] [address] Phone: tel: fax: [facility] [address] [facility] [address] [place] [address] Phone: tel: Referral ID Status Reason Start Date Expiration Date V isits Requested Visits Authorized [id number] Pending Review 03/08/2024 03/08/2025 1 1 Question Answer Reason for Consult: EP/Arrhythmia Comments Please discuss Tilt Table test. Concern for POTS. Encounter Details Date Type Department Care Team (Late st Contact Info) Description 03/08/2024 Orders Only [facility] [address] [place] [phone] Catie Cosme MD [facility] [address] [place] [id number] Orthostatic hypotension (Primary Dx); Pre-syncope Social History Tobacco Use Types Packs/Day Years [...] Description 11/08/2024 10:00 AM CDT Virtual Visit [facility] [address] [place] [phone] Catie Cosme MD [facility] [address] [place] [address] Marlen Raymundo MD [address] [place] [address] Scheduled Referrals Name Type Priority Associated Diagnoses Orde r Schedule Adult Cardiology Eval [facility] Referral Referral Routine: Next available opening Orthostatic hypotension Pre-syncope Expected: 03/15/2024 (Approximate), Expires: 03/08/2025 documented as of this encounter Visit Diagnoses Diagnosis Orthostatic hypotension- Primary Pre-syncope Syncope and collapse documented in this encounter
--- OUTSIDE RECORDS SUMMARY | 2024-08-28 02:24 | XMS_ITS | Encounter Summary ---
Author Organization [place] Address [facility] [place] [address] Care Team Providers Care Food Service Attendant Name Role Phone Catie Cosme MD Primary Care Provider Catie Cosme MD Unavailable [phone] Marlen Raymundo MD Unavailable [phone] Nevin Figueroa PA-C Unavailable [phone] Encounter Details Date Type Department Care Team (Late st Contact Info) Description 03/05/2024 External Order Results [facility] [address] [place] [address] Outside, Provider Social History Tobacco Use Types Packs/Day Years [...] Description 11/08/2024 10:00 AM CDT Virtual Visit [facility] [address] [place] [address] Catie Cosme MD [facility] [address] [place] [address] Marlen Raymundo MD [address] [place] [address] documented as of this encounter Procedures Procedure Name Priority Date/Time Associated Diagnosis Comments CBC WITH PLATELETS & DIFFERENTIAL Routine 03/05/2024 12:15 PM CDT LIPID PROFILE Routine 03/05/2024 12:15 PM CDT HEPATIC FUNCTION PANEL Routine 03/05/2024 12:15 PM CDT BASIC METABOLIC PANEL Routine 03/05/2024 12:15 PM CDT documented in this encounter Results * CBC with Platelets & Differential (03/05/2024 12:15 PM CDT) WBC Count (External) 8.62 4.0 - 11.0 10*3/uL NON-INTERFACE D (ONBASE SCANS) RBC Count (External) 4.00 3.8 - 5.2 10*6/uL NON-INTERFACE D (ONBASE SCANS) Hemoglobin (External) 13.0 11.7 - 15.7 g/dL NON-INTERFACE D (ONBASE SCANS) Hematocrit (External) 37.0 35.7 - 47.0 % NON-INTERFACE D (ONBASE SCANS) MCV (External) 92.5 78 - 100 fL NON-INTERFACE D (ONBASE SCANS) MCH (External) 32.5 26.5 - 33.0 PG NON-INTERFACE D (ONBASE SCANS) MCHC (External) 35.1 31.5 - 36.5 g/dL NON-INTERFACE D (ONBASE SCANS) RDW (External) 11.8 % NON-I NTERFACE D (ONBASE SCANS) Platelet Count (External) 239 150 - 450 10*3/uL NON-INTERFACE D (ONBASE SCANS) % Eosinophils (External) 1.0 0 - 6 % NON-INTERFACE D (ONBASE SCANS) Absolute Eosinophils (External) 0.09 0 - 0.7 10*3/uL NON-INTERFACE D (ONBASE SCANS) % Neutrophils (External) 61.4 40 - 75 % NON-INTERFACE D (ONBASE SCANS) Absolute Neutrophils (External) 5.29 1.6 - 8.3 10*3/uL NON-INTERFACE D (ONBASE SCANS) % Lymphocytes (External) 30.3 20 - 48 % NON-INTERFACE D (ONBASE SCANS) Absolute Lymphocytes (External) 2.61 0.8 - 5.3 10*3/uL NON-INTERFACE D (ONBASE SCANS) % Monocytes (External) 7.1 0 - 12 % NON-INTERFACE D (ONBASE SCANS) Absolute Monocytes (External) 0.61 0 - 1.3 10*3/uL NON-INTERFACE D (ONBASE SCANS) % Basophils (External) 0.1 0 - 1 % NON-INTERFACE D (ONBASE SCANS) Absolute Basophils (External) 0.01 0 - 0.2 10*3/uL NON-INTERFACE D (ONBASE SCANS) % Immature Granulocytes (External) 0.1 0 - 0.4 % NON-INTERFACE D (ONBASE SCANS) Absolute Immature Granulocytes (External) 0.01 0 - 0.03 10*3/uL NON-INTERFACE D (ONBASE SCANS) Blood BLOOD SPECIMEN / Unknown 03/05/2024 12:15 PM CDT Narrative NENITAE PFT - 06/21/2024 9:49 AM CDT Verified by Lilian Elena on 06/21/2024. us Provider Outside LAB - BLOOD ORDERABLES Edited R moisesult - Final PRAVEENA CLAUDIO NON-INTERFACED (ONBASE SCANS) * Lipid Profile (03/05/2024 12:15 PM CDT) Cholesterol (External) 142 0 - 200 mg/dL NON-INTERFACE D (ONBASE SCANS) HDL Cholesterol (External) 72 50 - 300 mg/dL NON-INTERFACE D (ONBASE SCANS) LDL-Cholesterol (External) 59 0 - 130 mg/dL NON-INTERFACE D (ONBASE SCANS) Triglycerides (External) 57 0 - 150 mg/dL NON-INTERFACE D (ONBASE SCANS) Blood BLOOD SPECIMEN / Unknown 03/05/2024 12:15 PM CDT Narrative NENITAE PFT - 06/21/2024 9:49 AM CDT Verified by Lilian Elena on 06/21/2024. us Provider Outside LAB - BLOOD ORDERABLES Edited R esult - Final PRAVEENA PFT NON-INTERFACED (ONBASE SCANS) * Basic metabolic panel (03/05/2024 12:15 PM CDT) Sodium (External) 141.7 133 - 144 mmol/L NON-INTERFACED (ONBASE SCANS) Potassium (External) 3.46 3.4 - 5.3 mmol/L NON-INTERFACED (ONBASE SCANS) Chloride (External) 106.2 94 - 109 mmol/l NON-INTERFACED (ONBASE SCANS) CO2 (External) 26.9 20 - 32 mmol/L NON-INTERFACED (ONBASE SCANS) Anion Gap (External) 12.1 3 - 14 Ratio NON-INTERFACED (ONBASE SCANS) Glucose (External) 87 70 - 99 mg/dL NON-INTERFACED (ONBASE SCANS) Urea Nitrogen (External) 9 7 - 30 mg/dL NON-INTERFACED (ONBASE SCANS) Creatinine (External) 0.78 0.52 - 1.04 mg/dL NON-INTERFACED (ONBASE SCANS) BUN/Creatinine Ratio (External) 12 Ratio NON-INTERFACED (ONBASE SCANS) Calcium (External) 9.8 8.5 - 10.1 mg/dL NON-INTERFACED (ONBASE SCANS) GFR Estimated (External) 102 ml/min/1.7 3m2 NON-INTERFACED (ONBASE SCANS) Blood BLOOD SPECIMEN / Unknown 03/05/2024 12:15 PM CDT Mariam PRAVEENA PFT - 06/21/2024 9:49 AM CDT Verified by Lilian Elena on 06/21/2024. Provider Outside LAB - BLOOD ORDERABLES Edited R Cintricult - Final PRAVEENA PFT NON-INTERFACED (ONBASE SCANS) * (ABNORMAL) Hepatic function panel (03/05/2024 12:15 PM CDT) Protein Total (External) 7.5 6.8 - 8.8 g/dL NON-INTERFACED (ONBASE SCANS) Albumin (External) 4.4 3.4 - 5.0 g/dL NON-INTERFACED (ONBASE SCANS) Alk Phosphatase (External) 28(L) 40 - 150 U/L NON-INTERFACED (ONBASE SCANS) ALT (External) 6 0 - 50 U/L NON- INTERFACED (ONBASE SCANS) AST (External) 10 0 - 45 U/L NON- INTERFACED (ONBASE SCANS) Bilirubin Total (External) 0.6 0.2 - 1.3 mg/dL NON-INTERFACED (ONBASE SCANS) Blood BLOOD SPECIMEN / Unknown 03/05/2024 12:15 PM CDT Narrative PRAVEENA PFT - 06/21/2024 9:49 AM CDT Verified by Lilian Elena on 06/21/2024. us Provider Outside LAB - BLOOD ORDERABLES Edited R esult - Final PRAVEENA PFT NON-INTERFACED (ONBASE SCANS) documented in this encounter Visit Diagnoses Not on filedocumented in this encounter Care Teams Food Service Attendant Relationship Specialty Start Date End Date Catie Cosme MD [facility] [address] [place] [address] PCP - General Internal Medicine 03/09/24 Catie Cosme MD [facility] [address] [place] [address] Internal Medicine 05/25/24 Marlen Raymundo MD [address] [place], [place] [address] Hospitalist Endocrinology, Diabetes, and Metabolism 05/25/24 Nevin Figueroa PA-C [address] [place] [address] Assigned Heart and Vascular Provider 07/24/24 documented as of this encounter
--- OUTSIDE RECORDS SUMMARY | 2024-08-28 02:24 | XMS_ITS | Clinical Summary ---
Author Organization [place] Address [facility] [place] [address] Care Team Providers Care Drive Thru Order Taker Name Role Phone Catie Cosme MD Primary Care Provider [phone] Catie Cosme MD Unavailable [phone] Marlen Raymundo MD Unavailable [phone] Nevin Figueroa PA-C Unavailable Allergies Active Allergy Reactions Criticality Noted Date Comments Contrast Dye Medium 05/06/2024 Medications propranolol (INDERAL) 10 MG tablet Take 10 mg by mouth daily. Active LO LOESTRIN FE 1 MG-10 MCG / 10 MCG TABS Take 1 tablet by mouth daily. 07/09/2023 Active Encounters Date Type Department Care Team Description 07/14/2024 12:40 PM CHILD MONITOR Office Visit [facility] [address] [place] [address] [address] [place] [phone] Vinay Douglas MD Stebbing, Haley, PA-C [facility] 07/14/2024 Travel 07/01/2024 10:15 AM CDT Lab [facility] [address] [facility] [address] [place] [phone] [facility] 07/01/2024 Travel 06/24/2024 3:15 PM CDT Office Visit [address] [place] [phone] Vinay Douglas MD [facility] (Primary Dx) 06/24/2024 Travel from Last 3 Months Family History Medical History Relation Comments No Known Problems Brother Asthma Father Fibromyalgia Father Thyroid Disease Father Hypertension Mother Myocarditis Sister Relation Status Comments Brother Alive Father Alive Mother [...] Comments Blood Pressure 118/80 07/14/2024 2:09 PM CHILD MONITOR Pulse 61 07/14/2024 2:09 PM CHILD MONITOR Temperature - - Respiratory Rate - - Oxygen Saturation 98% 07/14/2024 2:09 PM CHILD MONITOR Inhaled Oxygen Concentration - - Weight 79.4 kg (175 lb) 07/14/2024 2:09 PM CHILD MONITOR Height 174.2 cm (5' 8.6 ) 06/24/2024 3:13 PM CDT Body Mass Index 26.15 06/24/2024 3:13 PM CDT Plan of Treatment Upcoming Encounters Date Type Department Care Team (Late st Contact Info) Description 11/08/2024 10:00 AM CDT Virtual Visit [facility] [address] [facility] [address] [place] [address] Catie Cosme MD [facility] [address] [place] [address] Marlen Raymundo MD [address] [place] [address] Health Maintenance Due Date Last Done Comments ADVANCE CARE PLANNING 1989 ANNUAL REVIEW OF HM ORDERS 1989 HIV SCREENING 2004 HEPATITIS C SCREENING 2007 HEPATITIS B IMMUNIZATION (1 of 3 - 19+ 3-dose series) 2008 PAP 2010 DTAP/TDAP/TD IMMUNIZATION (1 - Tdap) 2014 COVID-19 Vaccine (1 - 2023- season) 2024 INFLUENZA VACCINE (#1) 2024 07/12/2021, 2015 YEARLY PREVENTIVE VISIT 08/27/2024 08/27/20 23, 03/05/2022, 02/12/2021, Additional history exists GLUCOSE 07/01/2027 07/01/2024 RSV VACCINE (1 - 1-dose 75+ series) 2064 PHQ-2 (once per calendar year) Completed 06/24/2024 HPV IMMUNIZATION Aged Out No longer e ligible based on patient's age to complete this topic MENINGITIS IMMUNIZATION Aged Out No l onger eligible based on patient's age to complete this topic Pneumococcal Vaccine: Pediatrics (0 to 5 Years) and At-Risk Patients (6 to 49 Years) Aged Out No longer eligible based on patient's age to complete this topic RSV MONOCLONAL ANTIBODY Aged Out No l onger eligible based on patient's age to complete this topic Procedures Procedure Name Priority Date/Time Associated Diagnosis [...] MD LAB - BLOOD ORDERABLES Final Result Performing Organization Address City/State/[facility] Co de Phone Number [facility] Acute Care Lab [address] Lab (1st floor, no room number) [place] [address], [facility] from Last 3 Months Insurance [id number] [place] OUT OF STATE Care Teams Drive Thru Order Taker Relationship Specialty Start Date End Date Catie Cosme MD [facility] [address] [place] [address] PCP - General Internal Medicine 03/09/24 Catie Cosme MD [facility] [address] [place] [address] Internal Medicine 05/25/24 Marlen Raymundo MD [address] [facility] [address] [place] [address] Hospitalist Endocrinology, Diabetes, and Metabolism 05/25/24 Nevin Figueroa PA-C [address] [place] [address] Assigned Heart and Vascular Provider 07/24/24
--- OUTSIDE RECORDS SUMMARY | 2024-08-28 02:25 | XMS_ITS | Encounter Summary ---
Author Organization [facility] Address [address] [facility] [place] [address] Phone Care Team Providers Care Lawn Mower Operator Name Role Phone Orin Bond APRN, TRIMMER HAND Primary Care P roelsader Jake Velez MD Unavailable [phone] Malia Field APRN, PARTS COUNTERMAN Unavailable [phone] Encounter Details Date Type Department Care Team (Late st Contact Info) Description 08/13/2023 Telephone [facility] - Internal Medicine - [place] [address] [place] [address] Teressa Gordon, [facility] [address] [place] [address] Social History Tobacco Use Types Packs/Day Years Used Date Smoking Tobacco: Never Smokeless Tobacco: Never Alcohol Use Standard Drinks/Week Comments No 0 (1 standard drink = 0.6 oz pur e alcohol) PHQ-2 Answer Date Recorded Total Score - Questions 1-9 4 04/01 Education Answer Date Recorded What is the highest level of school you have completed or the highest degree you have received? Bachelor's degree (e.g., BA, AB, BS) 01/23/2023 Sexually Active Control Partners Comments Yes Oral Contraceptive Male Comments No Sex and Gender Information Value Date Recorded Sex Assigned at Not on file Legal Sex Female 8:44 PM CDT Gender Identity Not on file Sexual Orientation Not on file documented as of this encounter Miscellaneous Notes * Telephone Encounter - Teressa Gordon PAC - 08/13/2023 2:49 PM CST labs RANCE BUSINESS ANALYST documented in this encounter Plan of Treatment Scheduled Orders Name Type Priority Associated Diagnoses Orde r Schedule FERRITIN Lab Routine Pott's disease Expected: 05/04/2024, Expires: 4 documented as of this encounter 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
--- OUTSIDE RECORDS SUMMARY | 2024-08-28 02:25 | XMS_ITS | Encounter Summary ---
Author Organization [employer] Care Team Providers Care Forming Acid Dumper Name Role Phone Orin Bond APRN, [facility] Primary Care P rovider Jake Velez MD Unavailable [phone] Malia Field APRN, [facility] Unavailable [phone] Encounter Details Date Type Department Care Team (Latest Contact Info) Description 07/29/2023 Travel Social History Tobacco Use Types Packs/Day [...] Diagnoses Not on filedocumented in this encounter Additional Health Concerns Assessment Noted Time PHQ-9 Depression Total Score: 4 04/17/20 23 11:00 AM CDT documented as of this encounter Care Teams Forming Acid Dumper Relationship Specialty Start Date End Date Orin Bond APRN, PASSPORT APPLICATION EXAMINER [address] [place] [address] PCP - General Advanced Practice Nurse 12/06/21 Jake Velez MD [address] [place] [address] Consulting Physician Neurology 06/16/23 Malia Field APRN, TREE LOADER MEAT [address] [place] [address] Nurse Practitioner Advanced Practice Nurse 03/06/23 documented as of this encounter
--- OUTSIDE RECORDS SUMMARY | 2024-08-28 02:25 | XMS_ITS | Encounter Summary ---
Author Organization [employer] Care Team Providers Care Building Supervisor Name Role Phone Orin Bond APRN, [facility] Primary Care P rovider Jake Velez MD Unavailable [phone] Malia Field APRN, [facility] Unavailable [phone] Encounter Details Date Type Department Care Team (Latest Contact Info) Description 07/15/2023 Travel Social History Tobacco Use Types Packs/Day [...] documented as of this encounter Care Teams Building Supervisor Relationship Specialty Start Date End Date Orin Bond APRN, LEATHER SPONGER [address] [place] [address] PCP - General Advanced Practice Nurse 12/06/21 Jake Velez MD [address] [place] [address] Consulting Physician Neurology 06/16/23 Malia Field APRN, CHIN STRAP CUTTER [address] [place] [address] Nurse Practitioner Advanced Practice Nurse 03/06/23 documented as of this encounter
--- OUTSIDE RECORDS SUMMARY | 2024-08-28 02:25 | XMS_ITS | Encounter Summary ---
Author Organization [facility] Address [address] [facility] [place] [address] Phone Care Team Providers Care Detasseler Name Role Phone Orin Bond APRN, SOIL SURVEYOR Primary Care P josesitoder Jake Velez MD Unavailable [phone] Malia Field APRN, CROSS CUT SAW OPERATOR Unavailable [phone] Reason for Visit * Reason Comments Sinus Problem Head Congestion Pressure Behind the Eyes Nasal Congestion For 4 weeks just in last week has been worse Encounter Details Date Type Department Care Team (Late st Contact Info) Description 09/16/2023 12:45 PM TECHNOLOGY ENGINEER Office Visit [facility] - Primary Care - [place] [address] [place] [address] Teressa Grodon, PAC [address] [place] [address] Sinusitis, unspecified chronicity, unspecified location (Primary Dx) Discharge Disposition: Discharged to home or Selfcare Social History Tobacco Use Types Packs/Day Years Used Date Smoking Tobacco: Never Smokeless Tobacco: Never Tobacco Cessation:Counseling Given: No Alcohol Use Standard Drinks/Week Comments No 0 [...] Sign Reading Time Taken Comments Blood Pressure 110/78 09/16/2023 12:59 PM TECHNOLOGY ENGINEER Pulse 85 09/16/2023 12:59 PM TECHNOLOGY ENGINEER Temperature 36.6 ??C (97.8 ??F) 09/16/2023 12:[address] Respiratory Rate 12 09/16/2023 12:59 PM TECHNOLOGY ENGINEER Oxygen Saturation 99% 09/16/2023 12:59 PM TECHNOLOGY ENGINEER Inhaled Oxygen Concentration - - Weight 73.5 kg (162 lb) 09/16/2023 12:59 PM TECHNOLOGY ENGINEER Height 175.3 cm (5' 9 ) 09/16/2023 12:59 PM TECHNOLOGY ENGINEER Body Mass Index 23.92 09/16/2023 12:59 PM TECHNOLOGY ENGINEER documented in this encounter Progress Notes * Teressa Gordon, PAC - 09/16/2023 12:45 PM CST Chief Complaint: Chief Complaint Patient presents with ??? Sinus Problem ??? Head Congestion ??? Pressure Behind the Eyes ??? Nasal Congestion For 4 weeks just in last week has been worse Assessment/Plan: Diagnoses and all orders for this visit: Sinusitis, unspecified chronicity, unspecified location - POC INFLUENZA A AND B BY MOLECULAR - POC SARS-COV-2 BY MOLECULAR Other orders - Escitalopram Oxalate 5 MG Tablet; TAKE 1 TABLET BY MOUTH EVERY DAY FOR 7 DAYS, THEN INCREASE TO 2TABLETS DAILY - azithromycin (ZITHROMAX) 250 MG Tablet; 2 tab(s) daily for 1 day, then 1 tab(s) daily for days 2-5. Rx zpack Monitor menstrual cycle If concerns, can d/c zpack Getting steroids for vascular test this week; this should help underlying sinus congestion also Cont OTC supportive care as able Subjective: Ms. Yomaira Ford is a 33 y.o. female here today for above. 4 wks of URI sx Last week the URI sx have got worse Increase congestion, purulent sinus drainage Facial pain sinus pain No fever ROS: Review of Systems HENT: Positive for congestion and sinus pain. VITAL SIGNS: BP Readings from Last 3 Encounters: 09/16/23 110/78 07/29/23 110/68 07/15/23 102/70 Wt Readings from Last 3 Encounters: 09/16/23 162 lb (73.5 kg) 07/29/23 157 lb (71.2 kg) 07/15/23 156 lb (70.8 kg) Vitals: 09/16/23 1259 BP: 110/78 BP Location: Right Arm BP Position: Sitting BP Cuff Size: Regular Pulse: 85 Resp: 12 Temp: 97.8 ??F (36.6 ??C) TempSrc: Temporal SpO2: 99% Weight: 162 lb (73.5 kg) Height: 5' 9 (1.753 m) Body mass index is 23.92 kg/m??. PHYSICAL EXAM: Physical Exam Vitals reviewed. HENT: Head: Normocephalic and atraumatic. Right Ear: Tympanic membrane normal. Left Ear: Tympanic membrane normal. Nose: Rhinorrhea present. Comments: Red inflammed intranasal passages Sinus tenderness with palpation Mouth/Throat: Mouth: Mucous membranes are moist. Eyes: Extraocular Movements: Extraocular movements intact. Cardiovascular: Rate and Rhythm: Regular rhythm. Heart sounds: Normal heart sounds. Pulmonary: Breath sounds: Normal breath sounds. Skin: General: Skin is warm. Neurological: Mental Status: She is alert. Mental status is at baseline. Psychiatric: Mood and Affect: Mood normal. Labs/Studies Reviewed: Lab Results Component Value Date WBC 7.37 03/06/2023 HEMOGLOBIN 11.9 (L) 03/06/2023 HEMATOCRIT 35.8 (L) 03/06/2023 PLATELETCNT 215 03/06/2023 MCV 94.0 03/06/2023 Lab Results Component Value Date SODIUM 137 03/06/2023 POTASSIUM 3.4 (L) 03/06/2023 CHLORIDE 104 03/06/2023 CO2VEN 22 03/06/2023 ANIONGAP 14.4 03/06/2023 GLUCOSE 93 03/06/2023 BUN 14 03/06/2023 CREATININE 0.69 03/06/2023 BCRATIO8 20 03/06/2023 TOTALPROTEIN 7.5 03/06/2023 ALBUMIN 4.6 03/06/2023 CALCIUM 9.2 03/06/2023 TBIL 0.6 03/06/2023 SGOTAST 14 03/06/2023 SGPTALT 11 03/06/2023 ALKALINEPHO 46 03/06/2023 GFRNA >60 03/06/2023 GFRA >60 03/06/2023 Lab Results Component Value Date TSH 0.510 01/22/2023 No results found for: HGBA1C Lab Results Component Value Date LDL 51 12/09/2022 No results found for: PSASCREEN , PSA , PSAFREE , PSAPCNTFREE , PSATOTAL @MAMMOFINDINGS@ EKG 12 LEAD Result Date: 01/29/2023 Normal sinus rhythm Normal ECG When compared with ECG of 22-JAN-2023 14:33, (Unconfirmed) No significant change was found Confirmed by Raj Moore ([id number]) on 01/29/2023 7:56:00 AM EKG 12 LEAD Result Date: 01/29/2023 Normal sinus rhythm Normal ECG No previous ECGs available Confirmed by Raj Moore ([id number]) on 01/29/2023 7:55:59 AM Recent Procedure Details No resulted procedures found. FOLLOWUP: Follow-up Information Return in about 1 week (around 09/23/2023) for worsening symptoms or if symptoms fail to improve. LOS Today OFFICE/OP EST LVL 3 LOW MDM/20-29 MIN Past medical, surgical, social and family history has been reviewed and updated as necessary. Medications and allergies has been reviewed and updated. I discussed all new medications and potential side effects or risks associated with them. Patient is to contact our office with any concerns. Patient instructions and educational materials were given to the patient. Patient (or patient product sales representative) demonstrates verbal understanding of instructions given. Patient should follow up with their PCP for general health maintenance needs. Patient should contact our office if their problems persist or call 911/go the to ER if issues become more persistent. If any referrals have been made, patient should contact our office with in 3-5 days if they have not heard anything from our referral team or the referring physician. NOLOGY ENGINEER documented in this encounter Plan of Treatment Not on file documented as of this encounter Procedures Procedure Name Priority Date/Time Associated Diagnosis Comments POC INFLUENZA A AND B BY MOLECULAR Routine 09/16/2023 1:10 PM TECHNOLOGY ENGINEER Sinusitis, unspecified chronicity, unspecified location POC SARS-COV-2 BY MOLECULAR Routine 09/16/2023 1:10 AM TECHNOLOGY ENGINEER Sinusitis, unspecified chronicity, unspecified location documented in this encounter Results * POC INFLUENZA A AND B BY MOLECULAR (09/16/2023 1:10 PM TECHNOLOGY ENGINEER) INFLUENZA A RNA Negative Negative, Invalid INFLUENZA B RNA Negative Negative, Invalid PROCEDURE CONTROL Valid 09/16/2023 1:10 PM TECHNOLOGY ENGINEER Teressa Gordon PAC POINT OF CARE ROBBIE TING (MANUAL) Final Result * POC SARS-COV-2 BY MOLECULAR (09/16/2023 1:10 AM TECHNOLOGY ENGINEER) SARSCOV2 Negative Negative, INVALID RESULT PROCEDURE CONTROL Valid 09/16/2023 1:10 AM TECHNOLOGY ENGINEER Teressa Gordon PAC POINT OF CARE ROBBIE TING (MANUAL) Final Result documented in this encounter Visit Diagnoses Diagnosis Sinusitis, unspecified chronicity, unspecified location- Primary documented in this encounter Additional Health Concerns Infection Onset Date Last Indicated Resolved Time COVID - 19 09/16/2023 09/16/2023 09/26/2023 12:1 6 AM TECHNOLOGY ENGINEER Assessment Noted Time PHQ-9 Depression Total Score: 4 04/17/20 23 11:00 AM CDT documented as of this encounter Care Teams Detasseler Relationship Specialty Start Date End Date Orin Bond, FISHING TACKLE REPAIRER, SOIL SURVEYOR [address] [place] [address] PCP - General Advanced Practice Nurse 12/06/21 Jake Velez MD [address] [place] [address] Consulting Physician Neurology 06/16/23 Malia Field APRN, CROSS CUT SAW OPERATOR [address] [place] [address] Nurse Practitioner Advanced Practice Nurse 03/06/23 documented as of this encounter
--- OUTSIDE RECORDS SUMMARY | 2024-08-28 02:25 | XMS_ITS | Encounter Summary ---
Author Organization [facility] Address [address] [facility] [place] [address] Phone Care Team Providers Care Public Relations Officer Name Role Phone Orin Bond APRN, SPECTROGRAPHIC ANALYST Primary Care P rovider Jake Velez MD Unavailable [phone] Malia Field APRN, [facility] Unavailable [phone]- [phone] Reason for Visit * Reason Comments Medication Refill Encounter Details Date Type Department Care Team (Late st Contact Info) Description 06/22/2023 Refill [facility] - Primary Care - [place] [address] [place] [address] Orin Bond APRN, SPECTROGRAPHIC ANALYST [address] [place] [address] Medication Refill Social History Tobacco Use Types Packs/Day Years [...] on file Sexual Orientation Not on file COVID-19 Exposure Response Date Recorded In the last 10 days, have yo u been in contact with someone who was confirmed or suspected to have Coronavirus/COVID-19? No / Unsure 06/06/2023 9:59 AM CDT documented as of this encounter Miscellaneous Notes * Telephone Encounter - Naomi Bentley RN - 06/23/2023 8:12 AM CDT The original prescription was discontinued on 03/06/2023 by Malia Field APRN, ZAHRA for the following reason: Med List Clean Up. documented in this encounter Plan of Treatment Not on file documented as of this encounter Visit Diagnoses Diagnosis Situational anxiety Other anxiety states documented in this encounter Additional Health Concerns Infection Onset Date Last Indicated Resolved Time COVID - 19 09/16/2023 09/16/2023 09/26/2023 12:1 6 AM CAN TENDER Assessment Noted Time PHQ-9 Depression Total Score: 4 04/17/20 23 11:00 AM CDT documented as of this encounter Care Teams Public Relations Officer Relationship Specialty Start Date End Date Orin Bond APRN, SPECTROGRAPHIC ANALYST [address] [place] [address] PCP - General Advanced Practice Nurse 12/06/21 Jake Velez MD [address] [place] [address] Consulting Physician Neurology 06/16/23 Malia Field APRN, SALT OPERATOR [address] [place] [address] Nurse Practitioner Advanced Practice Nurse 03/06/23 documented as of this encounter
--- OUTSIDE RECORDS SUMMARY | 2024-08-28 02:25 | XMS_ITS | Encounter Summary ---
Author Organization [facility] Care Team Providers Care [employer] Name Role Phone Orin Bond APRN, LATIN DANCE INSTRUCTOR Primary Care P rovider Malia Field APRN, BREAD OVEN OPERATOR Unavailable [phone] Encounter Details Date Type Department Care Team (Latest Contact Info) Description 06/06/2023 Travel Social History Tobacco Use Types Packs/Day [...] AM CDT documented as of this encounter Plan of Treatment Not on file documented as of this encounter Visit Diagnoses Not on filedocumented in this encounter Additional Health Concerns Assessment Noted Time PHQ-9 Depression Total Score: 4 04/17/20 11:00 AM CDT documented as of this encounter Care Teams [employer] Relationship Specialty Start Date End Date Orin Bond APRN, LATIN DANCE INSTRUCTOR [address] [place] [address] PCP - General Advanced Practice Nurse 12/06/21 Malia Field APRN, BREAD OVEN OPERATOR [address] [place] [address] Nurse Practitioner Advanced Practice Nurse 03/06/23 documented as of this encounter
--- OUTSIDE RECORDS SUMMARY | 2024-08-28 02:25 | XMS_ITS | Encounter Summary ---
Author Organization [facility] Address [address] [place] [address] Phone Care Team Providers Care Child Specialist Name Role Phone Orin Bond APRN, PRECISION INSTRUMENT MAKER AND REPAIRER Primary Care P rovider Malia Field APRN, LYE BATH OPERATOR Unavailable [phone] Reason for Visit * Reason Onset Date Comments Referral 05/30/2023 Neuro referral Encounter Details Date Type Department Care Team (Late st Contact Info) Description 05/30/2023 Telephone [facility] [address] [place] [address] Orin Bond APRN, PRECISION INSTRUMENT MAKER AND REPAIRER [address] [place] [address] Referral (Neuro referral ) Social History Tobacco Use Types Packs/Day Years [...] suspected to have Coronavirus/COVID-19? No / Unsure 05/19/2023 1:04 PM CDT documented as of this encounter Miscellaneous Notes * Telephone Encounter - Naomi Bentley RN - 05/30/2023 10:49 AM CDT Pt given referral dept ph number to update her neuro referral. Pt verbalized understanding. No further questione for display card writer * Telephone Encounter - Naomi Bentley RN - 05/30/2023 10:47 AM CDT Yomaira is calling to have her medical records faxed over to [facility] the fax number is [phone] direct number is [phone] this is the ref by Teressa Faulkner. documented in this encounter Plan of Treatment Not on file documented as of this encounter Visit Diagnoses Not on filedocumented in this encounter Additional Health Concerns Assessment Noted Time PHQ-9 Depression Total Score: 4 04/17/20 23 11:00 AM CDT documented as of this encounter Care Teams Child Specialist Relationship Specialty Start Date End Date Orin Bond APRN, PRECISION INSTRUMENT MAKER AND REPAIRER [address] [place] [address] PCP - General Advanced Practice Nurse 12/06/21 Malia Field APRN, LYE BATH OPERATOR [address] [place] [address] Nurse Practitioner Advanced Practice Nurse 03/06/23 documented as of this encounter
--- OUTSIDE RECORDS SUMMARY | 2024-08-28 02:25 | XMS_ITS | Encounter Summary ---
Author Organization [facility] Address [address] [facility] [place] [address] Phone Care Team Providers Care Cyber Incident Handler Name Role Phone Orin Bond APRN, AUTOMAT CAR ATTENDANT [facility] Jake Velez MD Unavailable [phone] Malia Field APRN, PROPERTY SUPERVISOR Unavailable [phone] Encounter Details Date Type Department Care Team (Late st Contact Info) Description 08/19/2023 10:20 AM AREA DIRECTOR OF HOME HEALTH SALES Lab [facility] - Primary Care - [address] [address] Lab, [facility] Pott's disease Discharge Disposition: Discharged to home or Selfcare [...] on file documented as of this encounter Progress Notes * Vira San - 08/19/2023 10:20 AM CST Yomaira presents for lab draw per order of Orin Bond KRISTA dated 08/19/23. Specimen collected from right antecubital without incident. 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, confirmation unspecified documented in this encounter Additional Health Concerns Assessment Noted Time PHQ-9 Depression Total Score: 4 04/17/20 11:00 AM CDT documented as of this encounter Care Teams Cyber Incident Handler Relationship Specialty Start Date End Date Orin Bond APRN, AUTOMAT CAR ATTENDANT [address] [place] [address] PCP - General Advanced Practice Nurse 12/06/21 Jake Velez MD [address] [place] [address] Consulting Physician Neurology 06/16/23 Malia Field APRN, PROPERTY SUPERVISOR [address] [place] [address] Nurse Practitioner Advanced Practice Nurse 03/06/23 documented as of this encounter
--- OUTSIDE RECORDS SUMMARY | 2024-08-28 02:25 | XMS_ITS | Encounter Summary ---
Author Organization [facility] Address [address] [facility] [place] [address] Phone Care Team Providers Care Printing Agent Name Role Phone Orin Bond APRN, BUGGY RUNNER Primary Care P rovider Malia Field APRN, RESEARCH AIDE Unavailable [phone] Reason for Referral * Radiology Services (Routine) - Closed Specialty Diagnoses / Procedures Referred By Contac t Referred To Contact Radiology Diagnoses Dizziness Multifocal neurological deficit Procedures MRA AND/OR MRV NECK W/WO CONTRAST Malia Field APRN, RESEARCH AIDE [address] [place] [address] Phone: tel: fax: Referral ID Status Reason Start Date Expiration Date Visits Re quested Visits Authorized [id number] Closed 04/24/2023 1 1 Reason for Visit * Radiology Services (Routine) - Closed Specialty Diagnoses / Procedures Referred By Contac t Referred To Contact Radiology Diagnoses Dizziness Multifocal neurological deficit Procedures MRI BRAIN W/WO CONTRAST MRI BRAIN W/WO MRA BRAIN W/O AND MRA NECK W/WO Malia Field APRN, RESEARCH AIDE [address] [place] [address] Phone: tel: fax: Referral ID Status Reason Start Date Expiration Date Visits Re quested Visits Authorized [id number] Closed 04/21/2023 1 1 Encounter Details Date Type Department Care Team (Latest Contact Info) Description 06/06/2023 10:03 AM CDT - 06/06/2023 11:59 PM CDT Hospital Encounter [facility] MRI [address] [place] [address] Malia Field, POUND KEEPER, RESEARCH AIDE [address] [place] [address] Discharge Disposition: Discharged to home or Selfcare [...] AM CDT documented as of this encounter Medications at Time of Discharge diphenhydrAMINE (BENADRYL) 50 MG Capsule Take 1 capsule 1 hour prior to exam 1 Capsule 05/15/2023 diphenhydrAMINE (BENADRYL) 50 MG Capsule Take 1 tab by mouth 1 hour prior to MRI 1 Capsule 04/29/2023 Escitalopram Oxalate 5 MG Tablet TAKE 1 TABLET BY MOUTH EVERY DAY FOR 7 DAYS, THEN INCREASE TO 2 TABLETS DAILY 04/16/2023 meclizine (ANTIVERT) 12.5 MG TabletIndication s:Heat syncope, initial encounter Take 1 Tablet by mouth every 8 hours as needed for Dizziness or Nausea. 90 Tablet 3 03/06/2023 Multiple Vitamins-Mineral s (MULTIPLE VITAMINS/WOMENS PO) Take by mouth. predniSONE (DELTASONE) 50 MG Tablet Take 1 tab by mouth 13 hours prior to exam, 1 tab by mouth 7 hours prior to exam and 1 tablet by mouth 1 hour prior to exam 3 Tablet 05/15/2023 predniSONE (DELTASONE) 50 MG Tablet Take 1 tab by mouth 13 hours prior to MRI. Take 1 tab by mouth 7 hours prior to MRI. Take 1 tab by mouth 1 hour prior to MRI. 3 Tablet 04/29/2023 documented as of this encounter Plan of Treatment Not on file documented as of this encounter Procedures Procedure Name Priority Date/Time Associated Diagnosis Comments MRA AND/OR MRV NECK W/WO CONTRAST Routine 06/06/2023 1:04 PM CDT Dizziness Multifocal neurological deficit MRI BRAIN W/WO CONTRAST Routine 06/06/2023 1:04 PM CDT Dizziness Multifocal neurological deficit documented in this encounter Results * MRA AND/OR MRV NECK W/WO CONTRAST (06/06/2023 1:04 PM CDT) Anatomical Region Laterality Modality vascular N/A Magnetic Resonan ce 06/06/2023 1:43 PM CDT Impressions 06/06/2023 1:46 PM CDT IMPRESSION: MR BRAIN: ?? Normal. MRA BRAIN: ??Normal. ?? MRA NECK: ?? No significant cervical carotid or vertebral stenosis. Narrative 06/06/2023 1:46 PM CDT EXAM DESCRIPTION: ?? MRI BRAIN W/WO CONTRAST; MRA AND/OR MRV HEAD W/O CONTRAST; MRA AND/OR MRV NECK W/WO CONTRAST REASON FOR STUDY: ?? Dizziness x 5 months, +LOC episode at work mid December 2022-heavy limbs vision. ??Pt states the week prior to this-vision changes and lightheadedness, left sided face and extremity numbness since March 2023 steadily getting better, notes say heat sensitivity, vertigo, and dizziness since December 2022 ?? TECHNIQUE: MRI TECHNIQUE: ??Multiplanar imaging includes non-contrasted T1, T2, FLAIR, gradient echo/susceptibility weighted and diffusion with ADC map sequences. ??Postcontrast T1 sequences also performed. ??Images stored on PACS. MRA [place]: Axial 3-D [id number] acquisition of the tolowa dee-ni' of [place]. ?3D MIP images rendered on scanning unit and reviewed at time of interpretation. ?? MRA NECK: Time of flight and postcontrast MR angiography imaging through the extracranial carotid and vertebral arteries. All stenosis measurements are based on NASCET criteria. 3D MIP images rendered on scanning unit and reviewed at time of interpretation. COMPARISON: ?? MRI from 03/26/2023 FINDINGS: MR BRAIN: CEREBRUM: ?? No hemorrhage, edema, or mass effect. ? WHITE MATTER: ?? Normal. POSTERIOR FOSSA: ?? Brainstem and cerebellum appear unremarkable. DIFFUSION IMAGING: ?? No recent infarction. EXTRAAXIAL SPACES: ?? No hemorrhage. ??No mass. BRAIN VOLUME: ?? Within normal limits for age. PITUITARY: ?? Unremarkable. VASCULATURE: ?? No flow disturbance identified. ORBITS: ?? No masses. Globes normal. PARANASAL SINUSES AND MASTOIDS: ?? Well-aerated with no fluid levels. No mucosa thickening. OTHER: ?? No other significant finding. MRA [place]: VASCULATURE: ?? No major occlusion, no stenosis, nor aneurysm. OTHER: ?? No other significant finding. MRA NECK: RIGHT CAROTID ARTERY: No stenosis or occlusion. Limited visualization of the origin. LEFT CAROTID ARTERY: No stenosis or occlusion. Limited visualization of the origin. VERTEBRAL ARTERY: The extracranial portions of the vertebral basilar system are preserved without stenosis. OTHER: No other significant finding. THIS IS AN ELECTRONICALLY VERIFIED FINAL REPORT 06/06/2023 1:43 PM - Electronically signed by ??Tyler Curtis M.D. MZ: DOMINIC D: ??06/06/2023 1:43 PM T: ??06/06/2023 1:43 PM Report ID: [id number] Reading Location: ??[id number] Procedure Note Tyler Curtis MD - 06/06/2023 EXAM DESCRIPTION: MRI BRAIN W/WO CONTRAST; MRA AND/OR MRV HEAD W/O CONTRAST; MRA AND/OR MRV NECK W/WO CONTRAST REASON FOR STUDY: Dizziness x 5 months, +LOC episode at work mid December 2022-heavy limbs vision. Pt states the week prior to this-vision changes and lightheadedness, left sided face and extremity numbness since March 2023 steadily getting better, notes say heat sensitivity, vertigo, and dizziness since December 2022 TECHNIQUE: MRI TECHNIQUE: Multiplanar imaging includes non-contrasted T1, T2, FLAIR, gradient echo/susceptibility weighted and diffusion with ADC map sequences. Postcontrast T1 sequences also performed. Images stored on PACS. MRA [place]: Axial 3-D [id number] acquisition of the tolowa dee-ni' of [place]. 3D MIP images rendered on scanning unit and reviewed at time of interpretation. MRA NECK: Time of flight and postcontrast MR angiography imaging through the extracranial carotid and vertebral arteries. All stenosis measurements are based on NASCET criteria. 3D MIP images rendered on scanning unit and reviewed at time of interpretation. COMPARISON: MRI from 03/26/2023 FINDINGS: MR BRAIN: CEREBRUM: No hemorrhage, edema, or mass effect. WHITE MATTER: Normal. POSTERIOR FOSSA: Brainstem and cerebellum appear unremarkable. DIFFUSION IMAGING: No recent infarction. EXTRAAXIAL SPACES: No hemorrhage. No mass. BRAIN VOLUME: Within normal limits for age. PITUITARY: Unremarkable. VASCULATURE: No flow disturbance identified. ORBITS: No masses. Globes normal. PARANASAL SINUSES AND MASTOIDS: Well-aerated with no fluid levels. No mucosa thickening. OTHER: No other significant finding. MRA [place]: VASCULATURE: No major occlusion, no stenosis, nor aneurysm. OTHER: No other significant finding. MRA NECK: RIGHT CAROTID ARTERY: No stenosis or occlusion. Limited visualization of the origin. LEFT CAROTID ARTERY: No stenosis or occlusion. Limited visualization of the origin. VERTEBRAL ARTERY: The extracranial portions of the vertebral basilar system are preserved without stenosis. OTHER: No other significant finding. THIS IS AN ELECTRONICALLY VERIFIED FINAL REPORT 06/06/2023 1:43 PM - Electronically signed by Tyler Curtis M.D. MZ: DOMINIC Report ID: [id number] Reading Location: [place] [address] IMPRESSION: MR BRAIN: Normal. MRA BRAIN: Normal. MRA NECK: No significant cervical carotid or vertebral stenosis. Malia Field APRN, RESEARCH AIDE IMG MR ORDERABLES Fi nal Result documented in this encounter Visit Diagnoses Diagnosis Dizziness Dizziness and giddiness Multifocal neurological deficit Other symptoms involving nervous and musculoskeletal systems documented in this encounter Administered Medications Inactive Administered Medications - up to 3 most recent administrations Medication Order MAR Action Action Date Dose Rate Site gadobenate dimeglumine MULTIHANCE SOLN 15 mL 15 mL, Intravenous, ONCE, 1 dose, On Fri06/06/23 at 1330 Given 06/06/2023 11:36 AM CDT 15 mL documented in this encounter Additional Health Concerns Assessment Noted Time PHQ-9 Depression Total Score: 4 04/17/20 23 11:00 AM CDT documented as of this encounter Care Teams Printing Agent Relationship Specialty Start Date End Date Orin Bond APRN, BUGGY RUNNER [address] [place] [address] PCP - General Advanced Practice Nurse 12/06/21 Malia Field APRN, RESEARCH AIDE [address] [place] [address] Nurse Practitioner Advanced Practice Nurse 03/06/23 documented as of this encounter
--- OUTSIDE RECORDS SUMMARY | 2024-08-28 02:25 | XMS_ITS | Clinical Summary ---
Author Organization [facility] Address [address] [place] [address] Phone Care Team Providers Care Chemist Biological Name Role Phone Orin Bond APRN, WILDLIFE MANAGER Primary Care P rovider Jake Velez MD Unavailable [phone] Malia Field APRN, INTERNATIONAL TRAVEL CONSULTANT Unavailable [phone]- [phone] Allergies Active Allergy Reactions Criticality Noted Date Comments Gadoteridol Hives,Rash,Itching Medium 03/26/2023 Pt received Prohance 16ml. Itchy throat, rash, [...] 13 hour regimen successfully with no issues Iodinated Contrast Media Hives Medium 04/21/2023 Medications Multiple Vitamins-Minera ls (MULTIPLE VITAMINS/WOMENS PO) Take by mouth. Activ e meclizine (ANTIVERT) 12.5 MG TabletIndicatio ns:Heat syncope, initial encounter Take 1 Tablet by mouth every 8 hours as needed for Dizziness or Nausea. 90 Tablet 3 3 Active Additional Information Patient not taking.Reported on 05/20/2023 predniSONE (DELTASONE) 50 MG Tablet Take 1 tab by mouth 13 hours prior to MRI. Take 1 tab by mouth 7 hours prior to MRI. Take 1 tab by mouth 1 hour prior to MRI. 3 Tablet 3 Active Additional Information Patient not taking.Reported on 05/20/2023 diphenhydrAMINE (BENADRYL) 50 MG Capsule Take 1 tab by mouth 1 hour prior to MRI 1 Capsule 3 Active Additional Information Patient not taking.Reported on 07/15/2023 predniSONE (DELTASONE) 50 MG Tablet Take 1 tab by mouth 13 hours prior to exam, 1 tab by mouth 7 hours prior to exam and 1 tablet by mouth 1 hour prior to exam 3 Tablet 3 Active Additional Information Patient not taking.Reported on 07/15/2023 diphenhydrAMINE (BENADRYL) 50 MG Capsule Take 1 capsule 1 hour prior to exam 1 Capsule 3 Active Additional Information Patient not taking.Reported on 07/15/2023 Lo Loestrin Fe 1 MG-10 MCG / 10 MCG Tablet Take 1 Tablet by mouth daily. 3 Active Escitalopram Oxalate 5 MG Tablet TAKE 1 TABLET BY MOUTH EVERY DAY FOR 7 DAYS, THEN INCREASE TO 2 TABLETS DAILY 3 Active Active Problems No known active problems Resolved Problems Problem Noted Date Diagnosed Date Resolved Date Normal labor and delivery 11/27/2016 Immunizations Immunization Administration Dates Next Due Influenza Vaccine, Quadrivalent, PF 07/12/2021,1 09/04/2015 Varicella Vaccine Live 11/29/2016 Family History Medical History Relation Name Comments Anemia Brother Alcohol Abuse Father Colon Cancer Maternal Grandfather Hypertension Mother Diabetes Paternal Grandmother Autoimmune Disease Sister Relation Name Status Comments Brother Father Maternal Grandfather Maternal Grandmother Mother Paternal Grandfather Paternal Grandmother Sister Social History Tobacco Use Types Packs/Day [...] Comments Blood Pressure 110/78 09/16/2023 12:59 PM HORSE RACE TIMER Pulse 85 09/16/2023 12:59 PM HORSE RACE TIMER Temperature 36.6 ??C (97.8 ??F) 09/16/2023 12:[address] Respiratory Rate 12 09/16/2023 12:59 PM HORSE RACE TIMER Oxygen Saturation 99% 09/16/2023 12:59 PM HORSE RACE TIMER Inhaled Oxygen Concentration - - Weight 73.5 kg (162 lb) 09/16/2023 12:59 PM HORSE RACE TIMER Height 175.3 cm (5' 9 ) 09/16/2023 12:59 PM HORSE RACE TIMER Body Mass Index 23.92 09/16/2023 12:59 PM HORSE RACE TIMER Plan of Treatment Health Maintenance Due Date Last Done Comments Hepatitis C Virus (HCV) Screening 1989 TdaP Immunization 1989 HPV/Cotest 2019 Cervical Cancer Screening (CCS) 02/13/2024 Pap Smear 02/13/2024 02/12/2021 Influenza Immunization (#1) 05/02/202407/02, 07/05/2016 SARS-COV-2 Immunization ( season) 2024 07/12/2021, 10/05/2020, 09/07/2020 Respiratory Syncytial Virus (RSV) Immunization (Adult) (1 - 1-dose 75+ series) 2064 Hepatitis B Immunization Discontinued Meningococcal Immunization (ACWY) Aged Out No longer eligible based on patient's age to complete this topic Pneumococcal Immunization Combined Aged Out No longer eligible based on patient's age to complete this topic Rotavirus Immunization Aged Out No lo nger eligible based on patient's age to complete this topic Insurance [employer] Advance Directives * Full Code (Latest Code Status on File) Date Activated Date Inactivated Comments 11/27/2016 7:01 AM 11/29/2016 4:54 PM CPR-Full Rudy atment: FULL ARREST: Attempt Resuscitation/CPR wit intubation and mechanical ventilation. PRE-ARREST: Use entire range of life support measures to stabilize the patient. Care Teams Chemist Biological Relationship Specialty Start Date End Date Orin Bond APRN, WILDLIFE MANAGER [address] [place] [address] PCP - General Advanced Practice Nurse 12/06/21 Jake Velez MD [address] [place] [address] Consulting Physician Neurology 06/16/23 Malia Field APRN, INTERNATIONAL TRAVEL CONSULTANT [address] [place] [address] Nurse Practitioner Advanced Practice Nurse 03/06/23
--- OUTSIDE RECORDS SUMMARY | 2024-08-28 02:25 | XMS_ITS | Encounter Summary ---
Author Organization [facility] Address [address] [facility] [place] [address] Phone Care Team Providers Care Podiatry Professor Name Role Phone Orin Bond APRN, SENIOR UI UX DESIGNER Primary Care P roelsader Jake Velez MD Unavailable Malia Field APRN, SHIPPING SERVICES SALES REPRESENTATIVE Unavailable [phone] Reason for Visit * Reason Comments numbness weakness Encounter Details Date Type Department Care Team (Late st Contact Info) Description 07/29/2023 11:00 AM OCCUPATIONAL THERAPIST Office Visit [facility] - Neurology [facility] [address] [place] [address] Jake Velez MD [address] [place] [address] POTS (postural orthostatic tachycardia syndrome) (Primary Dx); Chronic tension-type headache, intractable Discharge Disposition: Discharged to home or Selfcare Social History Tobacco Use Types Packs/Day Years Used Date Smoking Tobacco: Never Smokeless Tobacco: Never Tobacco Cessation:Counseling Given: Not Answered Alcohol Use Standard Drinks/Week Comments No 0 [...] Sign Reading Time Taken Comments Blood Pressure 110/68 07/29/2023 10:58 AM OCCUPATIONAL THERAPIST Pulse 78 07/29/2023 10:58 AM OCCUPATIONAL THERAPIST Temperature 36 ??C (96.8 ??F) 07/29/2023 10:58 AM OCCUPATIONAL THERAPIST Respiratory Rate 18 07/29/2023 10:58 AM OCCUPATIONAL THERAPIST Oxygen Saturation 100% 07/29/2023 10:58 AM OCCUPATIONAL THERAPIST Inhaled Oxygen Concentration - - Weight 71.2 kg (157 lb) 07/29/2023 10:58 AM OCCUPATIONAL THERAPIST Height 175.3 cm (5' 9 ) 07/29/2023 10:58 AM OCCUPATIONAL THERAPIST Body Mass Index 23.18 07/29/2023 10:58 AM OCCUPATIONAL THERAPIST documented in this encounter Progress Notes * Jake Velez MD - 07/29/2023 11:00 AM CST NEUROLOGY CONSULT Date of Service: 07/29/2023 Assessment and Plan Yomaira was seen today for numbness weakness . Diagnoses and all orders for this visit: POTS (postural orthostatic tachycardia syndrome) - continue patient on hydration, exercise, compressive garments and salt intake - patient is also going to see Dr. 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 Patient notes that she has been dealing with symptoms of dizziness, racing heart palpitations, lightheadedness visual changes, numbnessand tingling and so forth. Patient notes that she was constantly week. Symptoms really started in mid December when she lost consciousness at her work. 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 Since then she neves s been diagnosed with POTS. She has started to make lifestyle adjustments including cutting out caffeine and alcohol from her diet. Patient has increase hydration and salt intake. She wears compressive garments and has slowly started going to the gym and doing regular exercises largely supine and increasing her stamina. She notes that she was under lot of stress when symptoms had started. Patientwould rate that she is probably about 80% improved from when she 1st was diagnosed but realizes that it is largely management. Patient also notes pain and tightness around her neck and trapezius. Shealso has light sensitivity. But she did nice a throbbing migrainous type headache. Patient to this point has been trying to minimize her medication in put with managing these symptoms. History reviewed. No pertinent past medical history. Past Surgical History: Procedure Laterality Date ??? TONSILLECTOMY Family History Problem Relation Age of Onset ??? Diabetes Paternal Grandmother ??? Colon Cancer Maternal Grandfather ??? Alcohol Abuse Father ??? Hypertension Mother ??? Anemia Brother ??? Autoimmune Disease Sister Social History Tobacco Use ??? Smoking status: Never ??? Smokeless tobacco: Never Substance Use Topics ??? Alcohol use: No Allergies Allergen Reactions ??? Gadoteridol Hives, Rash and Itching Pt received Prohance 16ml. Itchy throat, rash, [...] 13 hour regimen successfully with no issues Current Outpatient Medications: ??? diphenhydrAMINE (BENADRYL) 50 MG Capsule, Take 1 capsule 1 hour prior to exam (Patient not taking: Reported on 07/15/2023), Disp: 1 Capsule, Rfl: 0 ??? diphenhydrAMINE (BENADRYL) 50 MG Capsule, Take 1 tab by mouth 1 hour prior to MRI (Patient not taking: Reported on 07/15/2023), Disp: 1 Capsule, Rfl: 0 ??? Lo Loestrin Fe 1 MG-10 MCG / 10 MCG Tablet, Take 1 Tablet by mouth daily., Disp: , Rfl: ??? meclizine (ANTIVERT) 12.5 MG Tablet, Take 1 Tablet by mouth every 8 hours as needed for Dizziness or Nausea. (Patient not taking: Reported on 05/20/2023), Disp: 90 Tablet, Rfl: 3 ??? Multiple Vitamins-Minerals (MULTIPLE VITAMINS/WOMENS PO), Take by mouth., Disp: , Rfl: ??? predniSONE (DELTASONE) 50 MG Tablet, Take 1 tab by mouth 13 hours prior to exam, 1 tab by mouth7 hours prior to exam and 1 tablet by mouth 1 hour prior to exam (Patient not taking: Reported on 07/15/2023), Disp: 3 Tablet, Rfl: 0 ??? predniSONE (DELTASONE) 50 MG Tablet, Take 1 tab by mouth 13 hours prior to MRI. Take 1 tab by mouth 7 hours prior to MRI. Take 1 tab by mouth 1 hour prior to MRI. (Patient not taking: Reported on05/20/2023), Disp: 3 Tablet, Rfl: 0 Review of Systems: A 14 point Review of Systems is obtained, and is negative other than that mentioned in the History of Present Illness. Objective: VITALS: Blood pressure 110/68, pulse 78, temperature 96.8 ??F (36 ??C), temperature source Temporal, resp. rate 18, height 5' 9 (1.753 m), weight 157 lb (71.2 kg), last menstrual period 04/08/2023, SpO2 100%, unknown if currently . Weight: Wt Readings from Last 1 Encounters: 07/29/23 157 lb (71.2 kg) Body mass index is 23.18 kg/m??. EXAM: General appearance: alert, no distress, cooperative, appears stated age Head: Normocephalic, without obvious abnormality, atraumatic Heart: regular rate and rhythm, S1, S2 normal, no murmur, click, rub or gallop Extremities: extremities normal, atraumatic, no cyanosis or edema Neurologic: Mental: Fully alert and oriented to time, place, person, situation. There is no problem with concentration and attention. Verbal recall-normal. Visuospatial skills- normal. Fund of knowledge is good. Memory is good for recent and remote events. On cranial nerve exam, CN II: visual warner are full to confrontation. Fundi are clear without hemorrhage or exudate, discs are sharp.CN III: Pupils are equal, round and reactive bilaterally; CN III,IV, extraocular movements are full with normal saccades and normal pursuits. There are no squarewave jerks. CN VIII: Hearing is intact bilaterally. CN V: Facial sensation is intact; CN VII: face is symmetric. CN IX: Palate elevates symmetrically. CN XII: Tongue is midline. CN XI: Shrug is 5/5. A motor examination was performed Muscles Tested Right Left Deltoid 5/5 5/5 Biceps 5/5 5/5 Triceps 5/5 5/5 Wrist Flexors 5/5 5/5 Wrist Extensors 5/5 5/5 Oil Recovery Operator 5/5 5/5 Hip Flexors 5/5 5/5 Quadriceps 5/5 5/5 Hamstrings 5/5 5/5 Dorsiflexion 5/5 5/5 EHL 5/5 5/5 Sensory exam is notable for being intact to light touch. Vibration and pin prick are intact. Romberg is negative. Coordination: finger to nose normal bilaterally. DTRs are 2+ bilateral upper and lower extremities. Plantars are downgoing bilaterally Gait is normal. Normal tandem gait, normal heel and toe walking. Normal armswing and turns. Data Review: Radiology Reviewed: yes No results found. CBC: Lab Results Component Value Date WBC 7.37 03/06/2023 RBC 3.81 03/06/2023 HEMOGLOBIN 11.9 (L) 03/06/2023 HEMATOCRIT 35.8 (L) 03/06/2023 PLATELETCNT 215 03/06/2023 CMP: Lab Results Component Value Date SODIUM 137 03/06/2023 POTASSIUM 3.4 (L) 03/06/2023 CHLORIDE 104 03/06/2023 CO2VEN 22 03/06/2023 ANIONGAP 14.4 03/06/2023 GLUCOSE 93 03/06/2023 BUN 14 03/06/2023 CREATININE 0.69 03/06/2023 BCRATIO8 20 03/06/2023 TOTALPROTEIN 7.5 03/06/2023 ALBUMIN 4.6 03/06/2023 CALCIUM 9.2 03/06/2023 TBIL 0.6 03/06/2023 SGPTALT 11 03/06/2023 ALKALINEPHO 46 03/06/2023 GFRNA >60 03/06/2023 GFRA >60 03/06/2023 GFRES >60 03/06/2023 Coagulation: No results found for: PTP , INR , PTT Cardiac markers: Lab Results Component Value Date TROPONINI <0.300 01/22/2023 By: Jake Velez MD, 07/29/2023, 11:10 AM OCCUPATIONAL THERAPIST Primary Care Physician: Orin Bond APRN, SENIOR UI UX DESIGNER PATIONAL THERAPIST documented in this encounter Plan of Treatment Not on file documented as of this encounter Visit Diagnoses Diagnosis POTS (postural orthostatic tachycardia syndrome)- Primary Tachycardia, unspecified Chronic tension-type headache, intractable Chronic tension type headache documented in this encounter Additional Health Concerns Assessment Noted Time PHQ-9 Depression Total Score: 4 04/17/20 23 11:00 AM CDT documented as of this encounter Care Teams Podiatry Professor Relationship Specialty Start Date End Date Orin Bond APRN, SENIOR UI UX DESIGNER [address] [place] [address] PCP - General Advanced Practice Nurse 12/06/21 Jake Velez MD [address] [place] [address] Consulting Physician Neurology 06/16/23 Malia Field APRN, SHIPPING SERVICES SALES REPRESENTATIVE [address] [place] [address] Nurse Practitioner Advanced Practice Nurse 03/06/23 documented as of this encounter
--- OUTSIDE RECORDS SUMMARY | 2024-08-28 02:25 | XMS_ITS | Encounter Summary ---
Author Organization [facility] Address [address] [facility] [place] [address] Phone Care Team Providers Care Tower Erector Helper Name Role Phone Orin Bond APRN, STORE TEAM LEADER Primary Care P rovider Jake Velez MD Unavailable Malia Field APRN, RELIABILITY SPECIALIST Unavailable [phone] Reason for Visit * Reason Onset Date Comments Results 08/28/2023 Labs Encounter Details Date Type Department Care Team (Late st Contact Info) Description 08/28/2023 Telephone [facility] - Primary Care - [place] [address] [place] [address] Teressa Gordon, PAC [address] [place] [address] Results (Labs) Social History Tobacco Use Types Packs/Day Years [...] encounter Miscellaneous Notes * Telephone Encounter - Olivia Martínez, RN - 08/28/2023 11:18 AM CST MyChart message sent. S INTERPRETER * Telephone Encounter - Olivia Martínez RN - 08/28/2023 11:17 AM CST ----- Message from EB Flores sent at 08/28/2023 11:09 AM PARTS INTERPRETER ----- Normal ferritin S INTERPRETER S INTERPRETER S INTERPRETER documented in this encounter Plan of Treatment Not on file documented as of this encounter Visit Diagnoses Not on filedocumented in this encounter Additional Health Concerns Assessment Noted Time PHQ-9 Depression Total Score: 4 04/17/20 23 11:00 AM CDT documented as of this encounter Care Teams Tower Erector Helper Relationship Specialty Start Date End Date Orin Bond APRN, STORE TEAM LEADER [address] [place] [address] PCP - General Advanced Practice Nurse 12/06/21 Jake Velez MD [address] [place] [address] Consulting Physician Neurology 06/16/23 Malia Field APRN, RELIABILITY SPECIALIST [address] [place] [address] Nurse Practitioner Advanced Practice Nurse 03/06/23 documented as of this encounter
--- OUTSIDE RECORDS SUMMARY | 2024-08-28 02:25 | XMS_ITS | Encounter Summary ---
Author Organization [employer] Care Team Providers Care Mining Engineer Name Role Phone Orin Bond APRN, TOOL AND PRODUCTION PLANNER Primary Care P rovider Jake Velez MD Unavailable [phone] Malia Field APRN, [facility] Unavailable [phone] Encounter Details Date Type Department Care Team (Latest Contact Info) Description 09/16/2023 Travel Social History Tobacco Use Types Packs/Day [...] filedocumented in this encounter Additional Health Concerns Infection Onset Date Last Indicated Resolved Time COVID - 19 09/16/2023 09/16/2023 09/26/2023 12:1 6 AM BREAD BAKER Assessment Noted Time PHQ-9 Depression Total Score: 4 04/17/20 23 11:00 AM CDT documented as of this encounter Care Teams Mining Engineer Relationship Specialty Start Date End Date Orin Bond APRN, TOOL AND PRODUCTION PLANNER [address] [place] [address] PCP - General Advanced Practice Nurse 12/06/21 Jake Velez MD [address] [place] [address] Consulting Physician Neurology 06/16/23 Malia Field APRN, CLOTH EDGE SINGER [address] [place] [address] Nurse Practitioner Advanced Practice Nurse 03/06/23 documented as of this encounter
--- OUTSIDE RECORDS SUMMARY | 2024-08-28 02:25 | XMS_ITS | Encounter Summary ---
Author Organization [facility] Address [address] [facility] [place] [address] Phone Care Team Providers Care Securities Lending Trader Name Role Phone Orin Bond APRN, RENTAL SALES ASSOCIATE Primary Care P roelsader Jake Velez MD Unavailable [phone] Malia Field APRN, GORE CUTTER Unavailable [phone] Reason for Visit * Reason Comments Altered Mental Status MRI results Encounter Details Date Type Department Care Team (Late st Contact Info) Description 07/15/2023 8:00 AM NITRILES LAB TECHNICIAN Office Visit [facility] - Primary Care - [place] [address] [place] [id number] Teressa Gordon, PAC [address] [place] [address] Neuropathy (Primary Dx); Palpitations; Weakness; RUQ pain; Frequent headaches Discharge Disposition: Discharged to home or Selfcare [...] Sign Reading Time Taken Comments Blood Pressure 102/70 07/15/2023 8:16 AM NITRILES LAB TECHNICIAN Pulse 64 07/15/2023 8:16 AM NITRILES LAB TECHNICIAN Temperature 36.6 ??C (97.9 ??F) 07/15/2023 8:16 AM CS T Respiratory Rate 12 07/15/2023 8:16 AM NITRILES LAB TECHNICIAN Oxygen Saturation 100% 07/15/2023 8:16 AM NITRILES LAB TECHNICIAN Inhaled Oxygen Concentration - - Weight 70.8 kg (156 lb) 07/15/2023 8:16 AM NITRILES LAB TECHNICIAN Height 175.3 cm (5' 9 ) 07/15/2023 8:16 AM NITRILES LAB TECHNICIAN Body Mass Index 23.04 07/15/2023 8:16 AM NITRILES LAB TECHNICIAN documented in this encounter Progress Notes * Vee Talya L, RMA - 07/15/2023 8:00 AM CST Yomaira Ford, 33 y.o., female is here for Altered Mental Status (MRI results ) Medication Refills: Patient reports/denies need for medication refills. Orders Pended: no Requested Prescriptions No prescriptions requested or ordered in this encounter Home Medications Medication Sig Start Date End Date Taking? Authorizing Provider diphenhydrAMINE (BENADRYL) 50 MG Capsule Take 1 capsule 1 hour prior to exam 05/15/23 Malia Field APRN, GORE CUTTER diphenhydrAMINE (BENADRYL) 50 MG Capsule Take 1 tab by mouth 1 hour prior to MRI 04/29/23 Malia Field APRN, GORE CUTTER Lo Loestrin Fe 1 MG-10 MCG / 10 MCG Tablet Take 1 Tablet by mouth daily. 07/09/23 Provider, MD Felipe meclizine (ANTIVERT) 12.5 MG Tablet Take 1 Tablet by mouth every 8 hours as needed for Dizziness orNausea. Patient not taking: Reported on 05/20/2023 03/06/23 Malia Field APRN, GORE CUTTER Multiple Vitamins-Minerals (MULTIPLE VITAMINS/WOMENS PO) Take by mouth. Provider, MD Felipe predniSONE (DELTASONE) 50 MG Tablet Take 1 tab by mouth 13 hours prior to exam, 1 tab by mouth 7 hours prior to exam and 1 tablet by mouth 1 hour prior to exam 05/15/23 Malia Field APRN, GORE CUTTER predniSONE (DELTASONE) 50 MG Tablet Take 1 tab by mouth 13 hours prior to MRI. Take 1 tab by mouth 7 hours prior to MRI. Take 1 tab by mouth 1 hour prior to MRI. Patient not taking: Reported on 05/20/2023 04/29/23 Malia Field APRN, GORE CUTTER There are no discontinued medications. I have reviewed the home medication list with the patient and have reconciled discrepancies. The list is accurate to the best of my knowledge. Smoking Status: Social History Tobacco Use ??? Smoking status: Never ??? Smokeless tobacco: Never Vaping Use ??? Vaping Use: Never used Substance Use Topics ??? Alcohol use: No ??? Drug use: No Smoking Cessation Counseling Given: no Health Care Maintenance: Health Maintenance Due Topic Date Due ??? Hepatitis C Virus (HCV) Screening Never done ??? Influenza Immunization (1) 05/02/2023 ??? SARS-COV-2 Immunization ( season) 2023 Orders Pended: no The following BPA's have been addressed with the patient today: BMI and Flu ILES LAB TECHNICIAN * Teressa Gordon, EB - 07/15/2023 8:00 AM CST Chief Complaint: Chief Complaint Patient presents with ??? Altered Mental Status MRI results Assessment/Plan: Diagnoses and all orders for this visit: Neuropathy Palpitations Weakness RUQ pain Frequent headaches Other orders - Lo Loestrin Fe 1 MG-10 MCG / 10 MCG Tablet; Take 1 Tablet by mouth daily. Pt is seeing NEURO, CARDIO, and CLINICAL EDITOR Cardio and Neuro think she pay have POTS (per patient) She says there is one specialist in [place] that treats this but she cannot be seen until April 2024 She is willing to travel out of network and out of state to see someone I gave her a packet of information with names of POTS specific providers that treat this from [facility], and [facility]. She will reach out to one of those facilities Otherwise she is consider PT in [place] specific to PT for POTS patients Also seeing cardio again tomorrow for her periodic increase in HR; HR normal today HAs are infrequent; I will defer to NEURO for this RUQ- one episode last week (she has been eating more fattier foods and changed her diet); we did discuss work up for GB disease including HIDA scan; she would like to hold off for now unless gets worse; cont to monitor sx; avoid dietary triggers F/u 3-6 mo Cont POTS work up and treatment Subjective: Ms. Yomaira Ford is a 33 y.o. female here today for above. F/u from all her symptoms She is improved but still not back to her baseline Had a flare up (associated with her period) of tachycardia Has changed her diet some; last week had one episode of RUQ pain; now resolved Has intermittent HAs but not one now Has had MRI MRA and they were all normal Says cardio and neuro both think she may have POTS Has not had LP to look at CSF fluid analysis Is back driving short distances Has occasional neuropathy episodes, weakness episodes, tachy episodes, etc Overall is 70% better ROS: Review of Systems All other systems reviewed and are negative. VITAL SIGNS: BP Readings from Last 3 Encounters: 07/15/23 102/70 05/20/23 94/66 04/21/23 108/70 Wt Readings from Last 3 Encounters: 07/15/23 156 lb (70.8 kg) 05/20/23 156 lb (70.8 kg) 04/21/23 159 lb (72.1 kg) Vitals: 07/15/23 0816 BP: 102/70 BP Location: Right Arm BP Position: Sitting BP Cuff Size: Regular Pulse: 64 Resp: 12 Temp: 97.9 ??F (36.6 ??C) TempSrc: Temporal SpO2: 100% Weight: 156 lb (70.8 kg) Height: 5' 9 (1.753 m) Body mass index is 23.04 kg/m??. PHYSICAL EXAM: Physical Exam Vitals reviewed. Constitutional: Appearance: Normal appearance. HENT: Head: Normocephalic and atraumatic. Eyes: Extraocular Movements: Extraocular movements intact. Cardiovascular: Rate and Rhythm: Regular rhythm. Heart sounds: Normal heart sounds. Pulmonary: Breath sounds: Normal breath sounds. Abdominal: Palpations: Abdomen is soft. Musculoskeletal: General: Normal range of motion. Skin: General: Skin is warm. Neurological: Mental [...] change was found Confirmed by Raj Moore ([id number]) on 01/29/2023 7:56:00 AM EKG 12 LEAD Result Date: 01/29/2023 Normal sinus rhythm Normal ECG No previous ECGs available Confirmed by Raj Moore ([id number]) on 01/29/2023 7:55:59 AM Recent Procedure Details No resulted procedures found. FOLLOWUP: Follow-up Information Return in about 3 months (around 10/15/2023). LOS Today OFFICE/OP EST LVL 4 MOD MDM/30-39 MIN Past medical, surgical, social and family history has been reviewed and updated as necessary. Medications and allergies has been reviewed and updated. I discussed all new medications and potential side effects or risks associated with them. Patient is to contact our office with any concerns. Patient instructions and educational materials were given to the patient. Patient (or patient small business sales representative) demonstrates verbal understanding of instructions [...] our referral team or the referring physician. ILES LAB TECHNICIAN documented in this encounter Plan of Treatment Not on file documented as of this encounter Visit Diagnoses Diagnosis Neuropathy- Primary Mononeuritis of unspecified site Palpitations Weakness Other malaise and fatigue RUQ pain Abdominal pain, right upper quadrant Frequent headaches documented in this encounter Additional Health Concerns Assessment Noted Time PHQ-9 Depression Total Score: 4 04/17/20 23 11:00 AM CDT documented as of this encounter Care Teams Securities Lending Trader Relationship Specialty Start Date End Date Orin Bodn APRN, RENTAL SALES ASSOCIATE [address] [place] [address] PCP - General Advanced Practice Nurse 12/06/21 Jake Velez MD [address] [place] [address] Consulting Physician Neurology 06/16/23 Malia Field APRN, GORE CUTTER [address] [place] [address] Nurse Practitioner Advanced Practice Nurse 03/06/23 documented as of this encounter
--- OUTSIDE RECORDS SUMMARY | 2024-08-28 02:25 | XMS_ITS | Encounter Summary ---
Author Organization [email or web address] Care Team Providers Care Gut Puller Name Role Phone Orin Bond APRN, [facility] Primary Care P rovider Jake Velez MD Unavailable [phone] Malia Field APRN, [facility] Unavailable [phone] Encounter Details Date Type Department Care Team (Latest Contact Info) Description 08/19/2023 Travel Social History Tobacco Use Types Packs/Day [...] documented as of this encounter Care Teams Gut Puller Relationship Specialty Start Date End Date Orin Bond APRN, BUYER AGENT [address] [place] [address] PCP - General Advanced Practice Nurse 12/06/21 Jake Velez MD [address] [place] [address] Consulting Physician Neurology 06/16/23 Malia Field APRN, WOOD DRILLING MACHINE OPERATOR [address] [place] [address] Nurse Practitioner Advanced Practice Nurse 03/06/23 documented as of this encounter
--- OUTSIDE RECORDS SUMMARY | 2024-08-28 02:26 | XMS_ITS | Encounter Summary ---
Author Organization [employer] Care Team Providers Care Transport Conductor Name Role Phone Orin Bond APRN, CNP Primary Care P rovider Encounter Details Date Type Department Care Team (Latest Contact Info) Description 01/23/2023 Travel Social History Tobacco Use Types Packs/Day Years Used Date Smoking Tobacco: Never Smokeless Tobacco: Never Alcohol Use Standard Drinks/Week Comments No 0 (1 standard drink = 0.6 oz pur e alcohol) Education Answer Date Recorded What is the [...] suspected to have Coronavirus/COVID-19? No / Unsure 01/23/2023 10:36 AM CDT documented as of this encounter Plan of Treatment Not on file documented as of this encounter Visit Diagnoses Not on filedocumented in this encounter Care Teams Transport Conductor Relationship Specialty Start Date End Date Orin Bond APRN, CNP [address] [place] [address] PCP - General Advanced Practice Nurse 12/06/21 documented as of this encounter
--- OUTSIDE RECORDS SUMMARY | 2024-08-28 02:26 | XMS_ITS | Encounter Summary ---
Author Organization [facility] Address [address] [facility] [place] [address] Phone Care Team Providers Care Frozen Pie Maker Name Role Phone Orin Bond APRN, CNP Primary Care P rovider Reason for Visit * Reason Onset Date Comments Results 12/11/2022 [facility] Encounter Details Date Type Department Care Team (Late st Contact Info) Description 12/11/2022 Telephone [facility] - Primary Care - [place] [address] [place] [address] Orin Bond APRN, CNP [address] [place] [address] Results ([facility] labs) Social History Tobacco Use Types Packs/Day Years Used Date Smoking Tobacco: Never Smokeless Tobacco: Never Alcohol Use Standard Drinks/Week Comments No 0 (1 standard drink = 0.6 oz pur e alcohol) Sexually Active Control Partners Comments Yes Oral [...] suspected to have Coronavirus/COVID-19? No / Unsure 12/09/2022 9:00 AM CDT documented as of this encounter Miscellaneous Notes * Telephone Encounter - Martha Connolly RN - 12/13/2022 3:20 PM CDT S: Results B: Patient is calling to return missed call in regards to lab results. A: Patient informed of the information below regarding [facility] labs: Labs all normal R: Patient verbalized understanding. * Telephone Encounter - Naomi Bentley RN - 12/13/2022 10:01 AM CDT Attempted to call pt, no answer, LVM for pt to call back. * Telephone Encounter - Orin Bond APRN, CNP - 12/13/2022 9:52 AM CDT Labs all normal. * Telephone Encounter - Celeste Whitfield RN - 12/11/2022 7:52 AM CDT Received [facility] labs, placed on PCP desk for review. documented in this encounter Plan of Treatment Not on file documented as of this encounter Visit Diagnoses Not on filedocumented in this encounter Care Teams Frozen Pie Maker Relationship Specialty Start Date End Date Orin Bond APRN, ART CRITIC [address] [place] [address] PCP - General Advanced Practice Nurse 12/06/21 documented as of this encounter
--- OUTSIDE RECORDS SUMMARY | 2024-08-28 02:26 | XMS_ITS | Encounter Summary ---
Author Organization [facility] Address [address] [place] [address] Phone Care Team Providers Care Materials Planning Analyst Name Role Phone Orin Bond APRN, CAFETERIA TABLE ATTENDANT Primary Care P rovider Malia Field APRN, BELL STAFF Unavailable [phone] Reason for Referral * Radiology Services (Routine) - Closed Specialty Diagnoses / Procedures Referred By Contac t Referred To Contact Radiology Diagnoses Dizziness Multifocal neurological deficit Procedures MRI BRAIN W/WO CONTRAST MRI BRAIN W/WO MRA BRAIN W/O AND MRA NECK W/WO Malia Field APRN, BELL STAFF [address] [place] [address] Phone: tel: fax: Referral ID Status Reason Start Date Expiration Date Visits Re quested Visits Authorized [id number] Closed 04/21/2023 1 1 * Consult, Test & Initiate Treatment (Routine) - Closed Specialty Diagnoses / Procedures Referred By Contac t Referred To Contact Diagnoses Dizziness Intermittent palpitations Multifocal neurological deficit Malia Field APRN, BELL STAFF [address] [place] [address] Phone: tel: fax: Julia Quiles MD [address] [facility] [address] [place] [address] Phone: tel: fax: Referral ID Status Reason Start Date Expiration Date Visits Re quested Visits Authorized [id number] Closed 04/21/2023 1 1 Scheduling Instructions Yomaira is being referred to Dr. Quiles or other specialist in patient's insurance network for possible POTS. See below for Yomaira's current medications, allergies and problem list. CURRENT MEDS: Current Outpatient Medications: meclizine (ANTIVERT) 12.5 MG Tablet, Take 1 Tablet by mouth every 8 hours as needed for Dizziness or Nausea., Disp: 90 Tablet, Rfl: 3 Multiple Vitamins-Minerals (MULTIPLE VITAMINS/WOMENS PO), Take by mouth., Disp: , Rfl: No current facility-administered medications for this visit. ALLERGIES: -- Iodinated Contrast Media -- Hives -- Prohance [Gadoteridol] -- Hives, Rash and Itching -- Pt received Prohance 16ml. Itchy throat, rash, and hives developed within a few minutes. Dr Hairston examined patient. Patient held for 30 minutes, no worsening symptoms. PROBLEM LIST: Patient Active Problem List: (none) - all problems resolved or deleted Reason for Visit * Reason Comments f/u dizziness Encounter Details Date Type Department Care Team (Late st Contact Info) Description 04/21/2023 9:00 AM CDT Office Visit [facility] - Neurology [facility] [address] [place] [address] Malia Field APRN, ZAHRA [address] [place] [address] Multifocal neurological deficit (Primary Dx); Intermittent palpitations; Dizziness Discharge Disposition: Discharged to home or Selfcare [...] suspected to have Coronavirus/COVID-19? No / Unsure 04/21/2023 8:49 AM CDT documented as of this encounter Last Filed Vital Signs Vital Sign Reading Time Taken Comments Blood Pressure 108/70 04/21/2023 8:56 AM CDT Pulse 96 04/21/2023 8:56 AM CDT Temperature 36 ??C (96.8 ??F) 04/21/2023 8:56 AM CDT Respiratory Rate 18 04/21/2023 8:56 AM CDT Oxygen Saturation 97% 04/21/2023 8:56 AM CDT Inhaled Oxygen Concentration - - Weight 72.1 kg (159 lb) 04/21/2023 8:56 AM CDT Height 175.3 cm (5' 9 ) 04/21/2023 8:56 AM CDT Body Mass Index 23.48 04/21/2023 8:56 AM CDT documented in this encounter Progress Notes * Malia Field APRN, BELL STAFF - 04/21/2023 9:00 AM CDT NEUROLOGY CONSULT Date of Service: 04/21/2023 Assessment and Plan Yomaira was seen today for f/u dizziness. Diagnoses and all orders for this visit: Multifocal neurological deficit - MRI BRAIN W/WO MRA BRAIN W/O AND MRA NECK W/WO; Future - EXTERNAL NEUROLOGY REFERRAL; Future Intermittent palpitations - EXTERNAL NEUROLOGY REFERRAL; Future Dizziness - MRI BRAIN W/WO MRA BRAIN W/O AND MRA NECK W/WO; Future - EXTERNAL NEUROLOGY REFERRAL; Future 1. Multifocal neurological deficit/Dizziness -MRI brain/MRA brain and neck with/without contrast -Referral to Dr. Quiles -Next appointment with Dr. Velez in 3 months 2. Intermittent palpitations -MRI brain/MRA brain & neck with/without contrast -Referral to Dr. Quiles for possible POTS Reason for office appointment: Seizures HPI: Yomaira Ford is being seen in the office today for dizziness. Yomaira was last seen in the officeon 03/06/2023. At that time Yomaira felt fatigued and like she was still unable to sweat. Treatment plan at that time included MRI brain with/without contrast, Mg, B12, CBC, CMP, and meclizine PRN. Yomaira was recently seen by her PCP on 04/17/2023. At that time Yomaira c/o numbness/tingling on leftside with severe weakness, passed out at work, burning in left toes that radiates to upper body. Yomaira was noted to be hyperreflexic & GABI on Lside mildly spastic. Note reviewed. Today Yomaira feels she has had 2 more flare ups of symptoms since she was last seen. The symptoms that occurred were documented by Yomaira and included very tired especially in afternoon, SOB, heart palpitations, dizziness, chest pressure (ribs feel tight), burning toes on left foot, numbness/tingling starts in left foot and travels up through left side, loss of control over left leg/arm/hand, tremor left hand, heat/humidity sensitive, light sensitive, sometimes severe, visual/auditory aura in left eye/ear followed by squeezing and hot sensation in head, whole body flush, heart racing, momentary vision loss, disorientation-repeating multiple times per episode, Feels like repeated adrenaline torres for days in a row, and unable to fall asleep for 4 days straight. The 2 episodes occurred during her period. In March her period started March 10 and symptoms started March 14. The symptoms lasted 7 days. April 08 was first day of period, these symptoms began on April 12 then lasted 5 days. Yomaira has also changed her eating habits. She is only eating whole foods. She did also note photophobia and an aura. Once she felt like hot lava was poured on her head, her vision changed, her heart raced. The symptoms repeat over and over then she becomes very fatigued. Hyper-reflexia again noted. Yomaira was seen by business taxes specialist. Log Buncher feels a usable MRI brain is needed for further clarity. Hormone labs where done by her chiropractor. Results reviewed and will be scanned into record. Yomaira sees the orthopedist on Friday and is going to schedule braces removal. Will repeat MRI brain and add MRA after braces removed. Treatment plan includes MRI brain & MRA brain and neck with/without contrast, pretreat for allergy, referral to Dr. Quiles, and next appointment with Dr. Velez in 3 months. Previous hx: Yomaira Ford is being seen in the office today after being referred by their PCP for dizziness. In mid-December Yomaira lost consciousness at work. 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 She was in a room with apatient when she suddenly noticed heavy limbs, tunnel vision, asked her pt to grab a coworker, laiddown on floor, then lost consciousness. The week prior Yomaira had vision changes and lightheadedness that occurred when standing and when bending or lifting. The next day Yomaira felt pretty good. Shetook a walk around the park then after lunch, the hot air outside she became fatigued, felt faint, got home and laid down. For the next two weeks Yomaira noted constant dizziness, constant weakness, and couldn't sit up. Every time she ate a meal, she would develop a racing heart, palpitations, faint, tunnel vision, lightheaded. During that time she kept stumbling on left side and tripping on left foot. At the end of the two weeks Yomaira developed the worst migraine she has ever had that lasted the entire day. The other symptoms resolved. The next day she noted intermittent heat sensitivity, vertigo, and driving causes dizziness. These symptoms continue multiple times a day every day. When she next started her period the symptoms improved. She woke up one morning with the worst migraine ever. Yomaira has been evaluated at ED on 3 occasions for the symptoms. Yomaira was seen in [facility] ED on 01/24/2023. Notes reviewed. CT head without contrast done on 01/24/23 reviewed. Lab results drawn on 01/24/23 reviewed. Yomaira is also feeling like she is unable to break a sweat. If she is under physical or emotional stress. If she goes to the gym, she cannot do any exercise that involves standing due to developing tunnel vision and starts shaking. She can sit on an exercise bike or row machine but has to go slow. If Yomaira tries to do any housework, she becomes extremely fatigued, develops heart palpitations, and dizzy. The symptoms seem to hit around 3:00pm every day. Treatment options were reviewed from conservative to aggressive. We discussed the need to encorporate life style modification including exercise, weight loss, migraine management. The patient demonstrated verbal understanding of all instructions given. History reviewed. No pertinent past medical history. [...] Alcohol use: No Allergies Allergen Reactions ??? Iodinated Contrast Media Hives ??? Prohance [Gadoteridol] Hives, Rash and Itching Pt received Prohance 16ml. Itchy throat, rash, and hives developed within a few minutes. Dr Hairston examined patient. Patient held for 30 minutes, no worsening symptoms. Current Outpatient Medications: ??? meclizine (ANTIVERT) 12.5 MG Tablet, Take 1 Tablet by mouth every 8 hours as needed for Dizziness or Nausea., Disp: 90 Tablet, Rfl: 3 ??? Multiple Vitamins-Minerals (MULTIPLE VITAMINS/WOMENS PO), Take by mouth., Disp: , Rfl: Review of Systems: A 14 point Review of Systems is obtained, and is negative other than that mentioned in the History of Present Illness. Objective: VITALS: Blood pressure 108/70, pulse 96, temperature 96.8 ??F (36 ??C), temperature source Temporal, resp. rate 18, height 5' 9 (1.753 m), weight 159 lb (72.1 kg), last menstrual period 04/08/2023, SpO2 97 %, unknown if currently . Weight: Wt Readings from Last 1 Encounters: 04/21/23 159 lb (72.1 kg) Body mass index is 23.48 kg/m??. EXAM: General appearance: alert, no distress, [...] full with normal saccades and normal pursuits. CN VIII: Hearing isintact bilaterally. CN V: Facial sensation is intact; CN VII: face is symmetric. CN IX: Palate elevates symmetrically. CN XII: Tongue is midline. CN XI: Shrug is 5/5. A motor examination was performed Muscles Tested Right Left Deltoid 5/5 5/5 Biceps 5/5 5/5 Triceps 5/5 5/5 Wrist Flexors 5/5 5/5 Wrist Extensors 5/5 5/5 Hip Flexors 5/5 5/5 Quadriceps 5/5 5/5 Hamstrings 5/5 5/5 Dorsiflexion 5/5 5/5 EHL 5/5 5/5 DTRs are 4+ bilateral upper and lower extremities. Gait is normal. Normal armswing and turns. Data Review: MRI BRAIN W/WO CONTRAST Result Date: 03/26/2023 IMPRESSION: Susceptibility artifact obscures a large portion of the brain on the diffusion-weightedsequence and results in milder artifact on multiple additional sequences, including the FLAIR sequence. Within this limitation, no acute intracranial findings. Consider repeat examination with orthodontic appliances removed, if clinically warranted. CBC: Lab Results Component Value Date WBC [...] 03/06/2023 GFRA >60 03/06/2023 GFRES >60 03/06/2023 Mg: Lab Results Component Value Date MAGNESIUM 1.9 03/06/2023 Thyroid: Lab Results Component Value Date TSH 0.510 01/22/2023 Documentation for this visit on 04/21/2023 was completed using a template. I have seen and examined the patient. Everything documented was personally performed at this visit with the necessary additions, deletions and changes made as appropriate. By: Malia Field APRN, ZAHRA, 04/21/2023, 11:48 AM CDT Primary Care Physician: Orin Bond APRN, CAFETERIA TABLE ATTENDANT documented in this encounter Plan of Treatment Scheduled Referrals Name Type Priority Associated Diagnoses Orde r Schedule EXTERNAL NEUROLOGY REFERRAL Outpatient Referral Routine Dizziness Intermittent palpitations Multifocal neurological deficit Expected: 04/21/2023, Expires: 04/21/2024 documented as of this encounter Results * MRI BRAIN W/WO CONTRAST (06/06/2023 1:04 PM CDT) Anatomical Region Laterality Modality Head N/A Magnetic Resonan ce 06/06/2023 1:43 PM [...] also performed. ??Images stored on PACS. MRA [place]: Axial 3-D [id number] acquisition of the [place]. ?3D MIP images rendered on [...] OTHER: ?? No other significant finding. MRA [place]: VASCULATURE: ?? No major occlusion, [...] PM T: ??06/06/2023 1:43 PM Report ID: [id number] Reading Location: ??[id number] Procedure Note Tyler Curtis MD - 06/06/2023 [...] also performed. Images stored on PACS. MRA [place]: Axial 3-D [id number] acquisition of the [place]. 3D MIP images rendered on [...] thickening. OTHER: No other significant finding. MRA [place]: VASCULATURE: No major occlusion, no [...] Tyler Curtis M.D. MZ: DOMINIC Report ID: [id number] Reading Location: [id number] IMPRESSION: MR BRAIN: Normal. MRA BRAIN: Normal. MRA NECK: No significant cervical carotid or vertebral stenosis. Malia Field APRN, BELL STAFF IMG MR ORDERABLES Fi nal Result documented in this encounter Visit Diagnoses Diagnosis Multifocal neurological deficit- Primary Other symptoms involving nervous and musculoskeletal systems Intermittent palpitations Dizziness Dizziness and giddiness Dizziness Dizziness and giddiness Multifocal neurological deficit Other symptoms involving nervous and musculoskeletal systems documented in this encounter Additional Health Concerns Assessment Noted Time PHQ-9 Depression Total Score: 4 04/17/20 23 11:00 AM CDT documented as of this encounter Care Teams Materials Planning Analyst Relationship Specialty Start Date End Date Orin Bond APRN, CAFETERIA TABLE ATTENDANT [address] [place] [address] PCP - General Advanced Practice Nurse 12/06/21 Malia Field APRN, BELL STAFF [address] [place] [address] Nurse Practitioner Advanced Practice Nurse 03/06/23 documented as of this encounter
--- OUTSIDE RECORDS SUMMARY | 2024-08-28 02:26 | XMS_ITS | Encounter Summary ---
Author Organization [facility] Address [address] [facility] [place] [address] Phone Care Team Providers Care Computer Forensic Specialist Name Role Phone Orin Bond APRN, CNP Primary Care P tomasa Encounter Details Date Type Department Care Team (Late st Contact Info) Description 12/09/2022 1:40 PM CDT Lab [facility] - Primary Care - [address] [address] [facility] Routine general medical examination at a health care facility Discharge Disposition: Discharged to home or Selfcare [...] AM CDT documented as of this encounter Functional Status * Question Answer Date of Assessment Author Little interest or pleasure in doing things Not at all 12/09/2022 9:00 AM CDT Lilian Fleming CM A Feeling down, depressed, or hopeless Not at all 12/09/2022 9:00 AM CDT Lilian Fleming CM A * Over the past 2 weeks, how often have you been bothered by any of the following problems? Question Answer Date of Assessment Author Patient Health Questionnaire-2 Score 0 11/30 9:00 AM CDT Lilian Fleming CMA documented as of this encounter Progress Notes * Kana Srivastava - 12/09/2022 1:40 PM CDT Yomaira presents for lab draw per order of Orin Bond APN, CITLALLI dated 12/09/22. Specimen collected from left antecubital without incident. [facility] documented in this encounter Plan of Treatment Not on file documented as of this encounter Visit Diagnoses Diagnosis Routine general medical examination at a health care facility documented in this encounter Care Teams Computer Forensic Specialist Relationship Specialty Start Date End Date Orin Bond APRN, BAR HOST [address] [place] [address] PCP - General Advanced Practice Nurse 12/06/21 documented as of this encounter
--- OUTSIDE RECORDS SUMMARY | 2024-08-28 02:26 | XMS_ITS | Encounter Summary ---
Author Organization [facility] Address [address] [facility] [place] [address] Phone Care Team Providers Care Chicken Tender Name Role Phone Orin Bond APRN, CNP Primary Care P tomasa Encounter Details Date Type Department Care Team (Late st Contact Info) Description 01/23/2023 3:00 PM CDT Lab [facility] - Primary Care - [address] [address] Lab, [facility] Discharge Disposition: Discharged to home or Selfcare [...] AM CDT documented as of this encounter Progress Notes * Kana Srivastava - 01/23/2023 3:00 PM CDT UA/Reflex to culture Sent to [facility] documented in this encounter Plan of Treatment Not on file documented as of this encounter Visit Diagnoses Not on filedocumented in this encounter Care Teams Chicken Tender Relationship Specialty Start Date End Date Orin Bond APRN, INCOME TAX MANAGER [address] [place] [address] PCP - General Advanced Practice Nurse 12/06/21 documented as of this encounter
--- OUTSIDE RECORDS SUMMARY | 2024-08-28 02:26 | XMS_ITS | Encounter Summary ---
Author Organization [facility] Address [address] [facility] [place] [place] [address] Phone Care Team Providers Care Engineering Manager Electronics Name Role Phone Orin Bond APRN, CNP Primary Care P rovider Reason for Visit * Reason Onset Date Comments Results 01/30/2023 UA Encounter Details Date Type Department Care Team (Late st Contact Info) Description 01/30/2023 Telephone [facility] - Primary Care - [place] [address] [place] [address] Orin Bond APRN, CNP [address] [place] [address] Results (UA) Social History Tobacco Use Types Packs/Day Years [...] suspected to have Coronavirus/COVID-19? No / Unsure 01/24/2023 8:29 PM CDT documented as of this encounter Miscellaneous Notes * Telephone Encounter - Naomi Bentley RN - 01/30/2023 2:27 PM CDT Patient aware and verbalized understanding. No questions for typewriters functional tester. * Telephone Encounter - Orin Bond APRN, CNP - 01/30/2023 11:52 AM CDT Urine negative for uti documented in this encounter Plan of Treatment Not on file documented as of this encounter Visit Diagnoses Not on filedocumented in this encounter Care Teams Engineering Manager Electronics Relationship Specialty Start Date End Date Orin Bond APRN, CNP [address] [place] [address] PCP - General Advanced Practice Nurse 12/06/21 documented as of this encounter
--- OUTSIDE RECORDS SUMMARY | 2024-08-28 02:26 | XMS_ITS | Encounter Summary ---
Author Organization [facility] Address [address] [place] [address] Phone Care Team Providers Care Pet Walker Name Role Phone Ashok Pennington APRN, CNP Primary Care P rovider Reason for Visit * Reason Comments Preventive Care Encounter Details Date Type Department Care Team (Late st Contact Info) Description 12/06/2021 10:45 AM CDT Office Visit [facility] Primary Care - [place] [address] [place] [address] Ashok Pennington APRN, CNP [address] [place] [address] Preventative health care (Adult) (Primary Dx) Discharge Disposition: Discharged to home [...] suspected to have Coronavirus/COVID-19? No / Unsure 12/13/2021 9:26 AM CDT documented as of this encounter Last Filed Vital Signs Vital Sign Reading Time Taken Comments Blood Pressure 112/70 12/06/2021 10:38 AM CDT Pulse 76 12/06/2021 10:38 AM CDT Temperature 36.7 ??C (98.1 ??F) 12/06/2021 10:38 AM C DT Respiratory Rate 20 12/06/2021 10:38 AM CDT Oxygen Saturation 97% 12/06/2021 10:38 AM CDT Inhaled Oxygen Concentration - - Weight 72.6 kg (160 lb) 12/06/2021 10:38 AM CDT Height 175.3 cm (5' 9 ) 12/06/2021 10:38 AM CDT Body Mass Index 23.63 12/06/2021 10:38 AM CDT documented in this encounter Patient Instructions * Patient Instructions* Ashok Pennington APRN, CNP - 12/06/2021 10:45 AM CDT Have fasting labs done, the results will be released to [facility] when available. Please continue with a balanced lifestyle of exercise and healthy eating. If any question, please call. Thanks for coming in today! documented in this encounter Progress Notes * Ashok Pennington APRN, CNP - 12/06/2021 10:45 AM CDT [facility] [address] [address] Dept: [phone] Dept Loc: [phone] Loc Patient: Yomaira Ford : 1990 Sex: female Subjective: HPI: Yomaira Ford presents for Preventive Care She is new to office. Only OCP and MVI daily. Denies any major medical or surgical hx. Reports she developed anxiety/depression during her pregnancies. She states she does have palpitations. She did see a sales force administrator, had a holter monitor, showed arrythmias but benign and was told she was told she was too young to do anything. States it still bothers her at times. She has ovarian cysts, on OCP, has no issues when on OCP. She would like to stop the OCP completelyas she does not want to have to take it. She would like to have a monthly cycle. Her mom had pre-cancerous breast issues. She is on meds for breast ca prevention. HM: UTD ROS Fourteen point review of systems negative except as documented in HPI. Objective: Vitals: 12/06/21 1038 BP: 112/70 BP Location: Right Arm BP Position: Sitting BP Cuff Size: Regular Pulse: 76 Resp: 20 Temp: 98.1 ??F (36.7 ??C) TempSrc: Temporal SpO2: 97% Weight: 160 lb (72.6 kg) Height: 5' 9 (1.753 m) LMP 08/07/2020 (Approximate) Physical Exam Vitals and nursing note reviewed. Constitutional: General: She is not in acute distress. Appearance: Normal appearance. She is well-developed. HENT: Head: Normocephalic and atraumatic. Right Ear: Tympanic membrane, ear canal and external ear normal. Left Ear: Tympanic membrane, ear canal and external ear normal. Nose: Nose normal. Mouth/Throat: Mouth: Mucous membranes are moist. Pharynx: Oropharynx is clear. No oropharyngeal exudate. Eyes: Conjunctiva/sclera: Conjunctivae normal. Pupils: Pupils are equal, round, and reactive to light. Neck: Thyroid: No thyromegaly. Vascular: No carotid bruit. Cardiovascular: Rate and Rhythm: Normal rate and regular rhythm. Pulses: Normal pulses. Heart sounds: Normal heart sounds. No murmur heard. No friction rub. No gallop. Pulmonary: Effort: Pulmonary effort is normal. No respiratory distress. Breath sounds: Normal breath sounds. No wheezing or rales. Chest: Chest wall: No tenderness. Abdominal: General: Bowel sounds are normal. There is no distension. Palpations: Abdomen is soft. There is no mass. Tenderness: There is no abdominal tenderness. There is no guarding or rebound. Musculoskeletal: General: No tenderness. Normal range of motion. Cervical back: Normal range of motion and neck supple. Right lower leg: No edema. Left lower leg: No edema. Lymphadenopathy: Cervical: No cervical adenopathy. Skin: General: Skin is warm and dry. Neurological: Mental Status: She is alert and oriented to person, place, and time. Coordination: Coordination normal. Psychiatric: Mood and Affect: Mood normal. Behavior: Behavior normal. Thought Content: Thought content normal. Judgment: Judgment normal. Medical Decision Making: Assessment & Plan Diagnoses and all orders for this visit: Preventative health care (Adult) - COMPLETE BLOOD COUNT (CBC) WITH DIFF; Future - LIPID PANEL; Future - THYROID SCREEN WITH REFLEX; Future - CMP (COMPREHENSIVE METABOLIC PANEL); Future Other orders - Lo Loestrin Fe 1 MG-10 MCG / 10 MCG Tablet; Take 1 Tablet by mouth daily. - Multiple Vitamins-Minerals (MULTIPLE VITAMINS/WOMENS PO); Take by mouth. routine labs ordered. Encouraged healthy diet and lifestyle. Stop lolo, discussed 3-6mo for hormones to be back to somewhat normal. Follow-up Information Return in about 1 year (around 12/06/2022). documented in this encounter Miscellaneous Notes * Addendum Note - Ashok Pennington APRN, CNP - 12/06/2021 10:45 AM CDT Addended by: ASHOK PENNINGTON on: 12/11/2021 09:39 AM Modules accepted: Level of Service * Addendum Note - Danielle Kimbrough RMA - 12/06/2021 10:45 AM CDTAddended by: CAR KIMBROUGH on: 01/08/2022 10:20 AM Modules accepted: Orders documented in this encounter Plan of Treatment Not on file documented as of this encounter Visit Diagnoses Diagnosis Preventative health care (Adult)- Primary Routine general medical examination at a health care facility documented in this encounter Care Teams Pet Walker Relationship Specialty Start Date End Date Ashok Pennington APRN, CONTENT DIRECTOR [address] [place] [address] PCP - General Advanced Practice Nurse 12/06/21 documented as of this encounter
--- OUTSIDE RECORDS SUMMARY | 2024-08-28 02:26 | XMS_ITS | Encounter Summary ---
Author Organization [facility] Address [address] [facility] [place] [address] Phone Care Team Providers Care Cage Supervisor Name Role Phone Marilyn Bond APRN, CITLALLI Primary Care P rovider Malia Field APRN, DIVISIONAL HUMAN RESOURCES DIRECTOR Unavailable [phone] Reason for Referral * Radiology Services (Routine) - Closed Specialty Diagnoses / Procedures Referred By Charlene chan Referred To Contact Radiology Diagnoses Heat syncope, initial encounter Heat exhaustion, initial encounter Procedures MRI BRAIN W/WO CONTRAST Malia Field APRN, DIVISIONAL HUMAN RESOURCES DIRECTOR [address] [place] [address] Phone: tel: fax: Referral ID Status Reason Start Date Expiration Date Visits Re quested Visits Authorized [id number] Closed 03/06/2023 1 1 Reason for Visit * Reason Comments ref Marilyn dizziness * Consult, Test & Initiate Treatment (Routine) - Closed Specialty Diagnoses / Procedures Referred By Charlene chan Referred To Contact Neurology Diagnoses Fatigue, unspecified type Dizziness and giddiness Marilyn Bond APRN, INSIDE SALES PROFESSIONAL [address] [place] [address] Phone: tel: fax: [facility] Neurology [facility] [address] [place] [address] Phone: tel: fax: Referral ID Status Reason Start Date Expiration Date Visits Re quested Visits Authorized [id number] Closed 01/28/2023 1 1 Encounter Details Date Type Department Care Team (Late st Contact Info) Description 03/06/2023 3:00 PM CDT Office Visit [facility] Neurology - Kevin [address] [place] [address] Marilyn Bond, CUSTODIAN, INSIDE SALES PROFESSIONAL [address] [facility] [address] Malia Field, YURI, DIVISIONAL HUMAN RESOURCES DIRECTOR [address] [place] [address] Heat syncope, initial encounter (Primary Dx) Discharge Disposition: Discharged to home [...] suspected to have Coronavirus/COVID-19? No / Unsure 03/06/2023 2:16 PM CDT documented as of this encounter Last Filed Vital Signs Vital Sign Reading Time Taken Comments Blood Pressure 116/68 03/06/2023 2:48 PM CDT Pulse 51 03/06/2023 2:48 PM CDT Temperature 36.3 ??C (97.3 ??F) 03/06/2023 2:48 PM CD T Respiratory Rate 18 03/06/2023 2:48 PM CDT Oxygen Saturation 100% 03/06/2023 2:48 PM CDT Inhaled Oxygen Concentration - - Weight 73.5 kg (162 lb) 03/06/2023 2:48 PM CDT Height 175.3 cm (5' 9 ) 03/06/2023 2:48 PM CDT Body Mass Index 23.92 03/06/2023 2:48 PM CDT documented in this encounter Progress Notes * Malia Field, CUSTODIAN, DIVISIONAL HUMAN RESOURCES DIRECTOR - 03/06/2023 3:00 PM CDT NEUROLOGY CONSULT Date of Service: 03/06/2023 Assessment and Plan Yomaira was seen today for ref marilyn dizziness . Diagnoses and all orders for this visit: Heat syncope, initial encounter - MRI BRAIN W/WO CONTRAST; Future - MAGNESIUM (MG); Future - VITAMIN B12; Future - COMPLETE BLOOD COUNT (CBC) WITH DIFF; Future - CMP (COMPREHENSIVE METABOLIC PANEL); Future - meclizine (ANTIVERT) 12.5 MG Tablet; Take 1 Tablet by mouth every 8 hours as needed for Dizzinessor Nausea. Other orders - NEUROLOGY REFERRAL 1. Heat syncope -Vs POTS -MRI brain with/without contrast -Mg -B12 -CBC -CMP -Meclizine PRN -Next appointment in 6 weeks Reason for Consultation: Dizziness HPI: Yomaira Ford is being seen in the office today after being referred by their PCP for dizziness. In mid-December Yomaira lost consciousness at work. 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 The week prior Yomaira had vision changes and lightheadedness that occurred when standing and when bending or lifting. The next day Yomaira felt pretty good. She took a walk around the park then after lunch, the hot air outside she became fatigued, felt faint,got home and laid down. For the next two weeks Yomaira noted constant dizziness, constant weakness, and couldn't sit up. Every time she ate a meal, she would develop a racing heart, palpitations, faint , tunnel vision, lightheaded. During that time she kept stumbling on left side and tripping on leftfoot. At the end of the two weeks [...] for the symptoms. Yomaira was seen in [facility] ED on 01/24/2023. Notes reviewed. CT head [...] to hit around 3:00pm every day. Treatment plan includes MRI brain with/without contrast, Mg, B12, CBC, CMP, and meclizine PRN. Nextappointment in 6 weeks. Treatment options were reviewed from conservative to aggressive. The patient demonstrated verbal understanding of all [...] Substance Use Topics ??? Alcohol use: No No Known Allergies Current Outpatient Medications: ??? meclizine (ANTIVERT) 12.5 [...] of Present Illness. Objective: VITALS: Blood pressure 116/68, pulse 51, temperature 97.3 ??F (36.3 ??C), temperature source Temporal, resp. rate 18, height 5' 9 (1.753 m), weight 162 lb (73.5 kg), last menstrual period 01/06/2023, SpO2 100 %, unknown if currently . Weight: Wt Readings from Last 1 Encounters: 03/06/23 162 lb (73.5 kg) Body mass index is 23.92 kg/m??. EXAM: General appearance: alert, no distress, [...] VII: face is symmetric. CN IX: Palate eleva melanie symmetrically. CN XII: Tongue is midline. CN XI: Shrug is 5/5. A motor examination was performed Muscles Tested Right Left Deltoid 5/5 5/5 Biceps 5/5 5/5 Triceps 5/5 5/5 Wrist Flexors 5/5 5/5 Wrist Extensors 5/5 5/5 Hip Flexors 5/5 5/5 Quadriceps 5/5 5/5 Hamstrings 5/5 5/5 Dorsiflexion 5/5 5/5 EHL 5/5 5/5 DTRs are 2+ bilateral upper and lower extremities. Gait is normal. Normal armswing and turns. Data Review: 01/24/23 CT head without contrast IMPRESSION: No acute intracranial findings. WBC 4.00 - 12.00 10(3)/mcL 10.30 8.02 16.20??High?? 13.59??High?? RBC 3.80 - 5.30 10(6)/mcL 3.88 3.95 3.35??Low?? 3.77??Low?? HEMOGLOBIN (HGB) 12.0 - 15.8 g/dL 12.2 12.5 10.8??Low?? 12.1 HEMATOCRIT (HCT) 36.0 - 47.0 % 36.3 36.9 31.8??Low?? 35.7??Low?? MCV 82.0 - 96.0 fL 93.6 93.4 94.9 94.7 MCH 26.0 - 34.0 pg 31.4 31.6 32.2 32.1 MCHC 31.0 - 36.0 g/dL 33.6 33.9 34.0 33.9 PLATELET COUNT 140 - 440 10(3)/mcL 250 250 211 235 RDW 11.8 - 15.5 % 11.9 11.7??Low?? 13.5 13.5 MPV 9.7 - 12.4 fL 9.6??Low?? 9.9 10.2 10.0 NEUTROPHILS 47.0 - 73.0 % 69.2 69.8 76.8??High?? 74.7??High?? LYMPHOCYTES 18.0 - 42.0 % 24.8 22.7 16.6??Low?? 17.5??Low?? MONOCYTES 4.0 - 12.0 % 5.0 6.4 5.9 7.1 EOSINOPHILS 0.0 - 5.0 % 0.7 0.7 0.5 0.4 BASOPHILS 0.0 - 1.0 % 0.3 0.4 0.2 0.3 ABSOLUTE NEUTROPHILS 1.60 - 7.70 10(3)/mcL 7.13 5.60 12.44??High?? 10.14??High?? ABSOLUTE LYMPHOCYTES 1.30 - 3.20 10(3)/mcL 2.55 1.82 2.69 2.38 ABSOLUTE MONOCYTES 0.20 - 1.00 10(3)/mcL 0.52 0.51 0.96 0.97 ABSOLUTE EOSINOPHIL 0.00 - 0.40 10(3)/mcL 0.07 0.06 0.08 0.06 ABSOLUTE BASOPHILS 0.00 - 0.10 10(3)/mcL 0.03 0.03 0.03 0.04 NRBC PER 100 WBC 0 SODIUM 136 - 144 mmol/L 139 141 POTASSIUM 3.5 - 5.1 mmol/L 3.4??Low?? 3.5 CHLORIDE 100 - 110 mmol/L 104 106 CO2, VENOUS 22 - 32 mmol/L 25 24 ANION GAP 8.0 - 20.0 mmol/L 13.4 14.5 GLUCOSE 70 - 99 mg/dL 95 98 BUN 6 - 20 mg/dL 10 11 CREATININE, BLOOD 0.60 - 1.10 mg/dL 0.61 0.59??Low?? BUN/CREATININE RATIO 12 - 20 ratio 16 19 TOTAL PROTEIN 6.0 - 8.3 g/dL 7.3 7.3 ALBUMIN 3.5 - 5.2 g/dL 4.5 4.5 CM Comment: The colormetric methods used for the determination of Albumin may lead to falsely elevatedtest results in patients suffering from renal failure or insufficiency due to interference with other proteins. A/G RATIO 1.0 - 2.0 1.6 1.6 CALCIUM 8.9 - 10.3 mg/dL 9.3 9.2 T BILI <=1.2 mg/dL 0.6 0.5 SGOT (AST) <=32 U/L 13 13 SGPT (ALT) <=41 U/L 10 10 ALKALINE PHOSPHATASE 35 - 105 U/L 49 46 GFR, ESTIMATED >=60 >60 >60 CM Comment: Creatinine Clearance is the preferred criteria for selecting drug dose adjustments in renally impaired patients. ??The GFR is provided as additional pertinent clinical information. GFR is reported in mL/min/1.73 sq m. Calculation based on the Chronic Kidney Disease Epidemiology Collaboration (CKD- EPI) equation refitwithout adjustment for race. GFR, EST. >=60 >60 >60 GFR, EST. NONAFRICAN >=60 >60 >60 Thyroid: Lab Results Component Value Date TSH 0.510 01/22/2023 Documentation for this visit on 03/06/2023 was completed using a template. I have seen and examined the patient. Everything documented was personally performed at this visit with the necessary additions, deletions and changes made as appropriate. By: Malia Field APRN, ZAHRA, 03/17/2023, 2:01 PM CDT Primary Care Physician: Marilyn Bond APRN, INSIDE SALES PROFESSIONAL documented in this encounter Plan of Treatment Not on file documented as of this encounter Results * MRI BRAIN W/WO CONTRAST (03/26/2023 11:20 AM CDT) Anatomical Region Laterality Modality Head N/A Magnetic Resonan ce 03/26/2023 12:0 2 PM CDT Impressions 03/26/2023 12:05 PM CDT IMPRESSION: Susceptibility artifact obscures a large portion of the brain on the diffusion-weighted sequence and results in milder artifact on multiple additional sequences, including the FLAIR sequence. ??Within this limitation, no acute intracranial findings. ?? Consider repeat examination with orthodontic appliances removed, if clinically warranted. ?? Narrative 03/26/2023 12:05 PM CDT EXAM DESCRIPTION: ?? MRI BRAIN W/WO CONTRAST REASON FOR STUDY: ?? Numerous episodes of dizziness, near syncope, and syncope over the past few months. Metal artifact from braces, pt had everything except brackets removed yesterday to prepare for MRI. Sequences adjusted to decrease metal artifact as much as possible. ?? TECHNIQUE: Multiplanar imaging includes noncontrast T1, T2, FLAIR, diffusion with ADC map and post contrast T1 sequences. Additional sequence(s) sensitive to blood products. ??Images stored on PACS. ? CONTRAST TYPE/DOSE: ?? 16mL of GADOTERIDOL 279.3 MG/ML IV SOLN ?? injected via ?? Intravenous COMPARISON: ?? Head CT from 01/24/2023 FINDINGS: There is substantial susceptibility artifact degrading assessment, particularly on the diffusion-weightedsequence reportedly related to orthodontic appliances CEREBRUM: ?? No hemorrhage, edema, or mass effect. ??No abnormal enhancement. ? WHITE MATTER: ?? Normal. POSTERIOR FOSSA: ?? Brainstem and cerebellum appear unremarkable. ??No abnormal enhancement. DIFFUSION IMAGING: ?? No recent infarction. EXTRAAXIAL SPACES: ?? No hemorrhage. ??No mass or abnormal enhancement. BRAIN VOLUME: ?? Within normal limits for age. PITUITARY: ?? Unremarkable. VASCULATURE: ?? No flow disturbance identified. ORBITS: ?? No masses. Globes normal. PARANASAL SINUSES AND MASTOIDS: ?? Well-aerated with no fluid levels. No mucosa thickening. OTHER: ?? No other significant finding. THIS IS AN ELECTRONICALLY VERIFIED FINAL REPORT 03/26/2023 12:02 PM - Electronically signed by ??Tyler Curtis M.D. MZ: DOMINIC D: ??03/26/2023 12:02 PM T: ??03/26/2023 12:02 PM Report ID: [id number] Reading Location: ??[id number] Procedure Note Tyler Curtis MD - 03/26/2023 EXAM DESCRIPTION: MRI BRAIN W/WO CONTRAST REASON FOR STUDY: Numerous episodes of dizziness, near syncope, and syncope over the past few months. Metal artifact from braces, pt had everything except brackets removed yesterday to prepare for MRI. Sequences adjusted to decrease metal artifact as much as possible. TECHNIQUE: Multiplanar imaging includes noncontrast T1, T2, FLAIR, diffusion with ADC map and post contrast T1 sequences. Additional sequence(s) sensitive to blood products. Images stored on PACS. CONTRAST TYPE/DOSE: 16mL of GADOTERIDOL 279.3 MG/ML IV SOLN injected via Intravenous COMPARISON: Head CT from 01/24/2023 FINDINGS: There is substantial susceptibility artifact degrading assessment, particularly on the diffusion-weightedsequence reportedly related to orthodontic appliances CEREBRUM: No hemorrhage, edema, or mass effect. No abnormal enhancement. WHITE MATTER: Normal. POSTERIOR FOSSA: Brainstem and cerebellum appear unremarkable. No abnormal enhancement. DIFFUSION IMAGING: No recent infarction. EXTRAAXIAL SPACES: No hemorrhage. No mass or abnormal enhancement. BRAIN VOLUME: Within normal limits for age. PITUITARY: Unremarkable. VASCULATURE: No flow disturbance identified. ORBITS: No masses. Globes normal. PARANASAL SINUSES AND MASTOIDS: Well-aerated with no fluid levels. No mucosa thickening. OTHER: No other significant finding. THIS IS AN ELECTRONICALLY VERIFIED FINAL REPORT 03/26/2023 12:02 PM - Electronically signed by Tyler Curtis M.D. MZ: MZ Report ID: [id number] Reading Location: [id number] IMPRESSION: Susceptibility artifact obscures a large portion of the brain on the diffusion-weighted sequence and results in milder artifact on multiple additional sequences, including the FLAIR sequence. Within this limitation, no acute intracranial findings. Consider repeat examination with orthodontic appliances removed, if clinically warranted. us Malia Field CUSTODIAN, DIVISIONAL HUMAN RESOURCES DIRECTOR IMG MR ORDERABLES Fi nal Result * (ABNORMAL) CMP (COMPREHENSIVE METABOLIC PANEL) (03/06/2023 3:37 PM CDT) SODIUM 137 136 - 144 mmol/L 03/06/2023 4:16 PM CDT [facility] POTASSIUM 3.4(L) 3.5 - 5.1 mmol/L 03/06/2023 4:16 PM CDT [facility] CHLORIDE 104 100 - 110 mmol/L 03/06/2023 4:16 PM CDT [facility] CO2, VENOUS 22 22 - 32 mmol/L 03/06/2023 4:16 PM CDT [facility] ANION GAP 14.4 8.0 - 20.0 mmol/L 03/06/2023 4:16 PM CDT [facility] GLUCOSE 93 70 - 99 mg/dL 03/06/2023 4:16 PM CDT [facility] BUN 14 6 - 20 mg/dL 03/06/2023 4:16 PM CDT [facility] CREATININE, BLOOD 0.69 0.60 - 1.10 mg/dL 03/06/2023 4:16 PM CDT [facility] BUN/CREATININE RATIO 20 12 - 20 ratio 03/06/2023 4:16 PM CDT [facility] TOTAL PROTEIN 7.5 6.0 - 8.3 g/dL 03/06/2023 4:16 PM CDT [facility] ALBUMIN 4.6 3.5 - 5.2 g/dL 03/06/2023 4:16 PM CDT [facility] Comment: The colormetric methods used for the determination of Albumin may lead to falsely elevated test results in patients suffering from renal failure or insufficiency due to interference with other proteins. A/G RATIO 1.6 1.0 - 2.0 03/06/2023 4:16 PM CDT [facility] CALCIUM 9.2 8.9 - 10.3 mg/dL 03/06/2023 4:16 PM CDT [facility] T BILI 0.6 <=1.2 mg/dL 03/06/2023 4:16 PM CDT [facility] SGOT (AST) 14 <=32 U/L 03/06/2023 4:16 PM CDT [facility] SGPT (ALT) 11 <=41 U/L 03/06/2023 4:16 PM CDT [facility] ALKALINE PHOSPHATASE 46 35 - 105 U/L 03/06/2023 4:16 PM CDT [facility] IS THE PATIENT REQUIRED TO BE FASTING? No 03/06/2023 4:16 PM CDT [facility] GFR, ESTIMATED >60 >=60 03/06/2023 4:16 PM CDT [facility] Comment: Creatinine Clearance is the preferred criteria for selecting drug dose adjustments in renally impaired patients. ??The GFR is provided as additional pertinent clinical information. GFR is reported in mL/min/1.73 sq m. Calculation based on the Chronic Kidney Disease Epidemiology Collaboration (CKD- EPI) equation refit without adjustment for race. GFR, EST. >60 >=60 023 4:16 PM CDT [facility] GFR, EST. NONAFRICAN >60 >=60 03/06/2023 4:16 PM CDT [facility] Blood Venipuncture / Unknown 03/06/2023 3:37 PM CDT 03/06/2023 3:55 PM CDT Malia Field APRN, DIVISIONAL HUMAN RESOURCES DIRECTOR CHEMISTRY ORDERABLES Final Result Performing Organization Address City/[facility]/ZIP Co de Phone Number [facility] [address] [place] [address] * VITAMIN B12 (03/06/2023 3:37 PM CDT) VITAMIN B12 797 243 - 894 pg/mL 03/06/2023 4:35 PM CDT [facility] Blood Venipuncture / Unknown 03/06/2023 3:37 PM CDT 03/06/2023 3:55 PM CDT Malia Field APRN, DIVISIONAL HUMAN RESOURCES DIRECTOR CHEMISTRY ORDERABLES Final Result Performing Organization Address [facility] Co de Phone Number [facility] [address] [place] [address] * MAGNESIUM (MG) (03/06/2023 3:37 PM CDT) MAGNESIUM 1.9 1.8 - 2.5 mg/dL 03/06/2023 4:16 PM CDT [facility] Blood Venipuncture / Unknown 03/06/2023 3:37 PM CDT 03/06/2023 3:55 PM CDT Malia Field APRN, DIVISIONAL HUMAN RESOURCES DIRECTOR CHEMISTRY ORDERABLES Final Result Performing Organization Address City/[facility] Co de Phone Number [facility] [address] [place] [address] documented in this encounter Visit Diagnoses Diagnosis Heat syncope, initial encounter- Primary Heat syncope, initial encounter documented in this encounter Care Teams Cage Supervisor Relationship Specialty Start Date End Date Marilyn Bond APRN, INSIDE SALES PROFESSIONAL [address] [place] [address] PCP - General Advanced Practice Nurse 12/06/21 Malia Field, CUSTODIAN, DIVISIONAL HUMAN RESOURCES DIRECTOR [address] [place] [address] Nurse Practitioner Advanced Practice Nurse 03/06/23 documented as of this encounter
--- OUTSIDE RECORDS SUMMARY | 2024-08-28 02:26 | XMS_ITS | Encounter Summary ---
Author Organization [facility] Address [address] [place] [address] Phone Care Team Providers Care Chef French Name Role Phone Orin Bond APRN, CNP Primary Care P rovider Reason for Visit * Reason Onset Date Comments Results 01/17/2022 Labs Encounter Details Date Type Department Care Team (Late st Contact Info) Description 01/17/2022 Telephone [facility] - Primary Care - [place] [address] [place] [address] Orin Bond APRN, CNP [address] [place] [address] Results (Labs ) Social History Tobacco Use Types Packs/Day [...] suspected to have Coronavirus/COVID-19? No / Unsure 01/10/2022 12:59 PM CDT documented as of this encounter Miscellaneous Notes * Telephone Encounter - Catie Mcfarland RN - 01/17/2022 4:31 PM CDT Relayed message to patient. Positive COVID test on Friday, 01/15, reports will get back to providerabout endocrinology referral next week. * Telephone Encounter - Naomi Bentley RN - 01/17/2022 4:19 PM CDT Attempted to call patient with results, no answer at this time. Left message to call back. * Telephone Encounter - Orin Bond APRN, CNP - 01/17/2022 3:02 PM CDT Labs look good, low end of normal. If she would like, we can proceed with referral to endo for further eval of symptoms. documented in this encounter Plan of Treatment Not on file documented as of this encounter Visit Diagnoses Diagnosis Palpitations- Primary Low TSH level Nonspecific abnormal results of thyroid function study documented in this encounter Care Teams Chef French Relationship Specialty Start Date End Date Orin Bond APRN, CNP [address] [place] [address] PCP - General Advanced Practice Nurse 12/06/21 documented as of this encounter
--- OUTSIDE RECORDS SUMMARY | 2024-08-28 02:26 | XMS_ITS | Encounter Summary ---
Author Organization [employer] Care Team Providers Care Scrap Hoist Operator Name Role Phone Orin Bond APRN, REPORTS ANALYSIS MANAGER Primary Care P rovider Malia Field APRN, SOUS CHEF Unavailable [phone]- [phone] Encounter Details Date Type Department Care Team (Latest Contact Info) Description 04/21/2023 Travel Social History Tobacco Use Types Packs/Day [...] documented as of this encounter Care Teams Scrap Hoist Operator Relationship Specialty Start Date End Date Orin Bond APRN, REPORTS ANALYSIS MANAGER [address] [place] [address] PCP - General Advanced Practice Nurse 12/06/21 Malia Field APRN, SOUS CHEF [address] [place] [address] Nurse Practitioner Advanced Practice Nurse 03/06/23 documented as of this encounter
--- OUTSIDE RECORDS SUMMARY | 2024-08-28 02:26 | XMS_ITS | Encounter Summary ---
Author Organization [employer] Care Team Providers Care Cartridge Assembling Machine Adjuster Name Role Phone Orin Bond APRN, CNP Primary Care P rovider Encounter Details Date Type Department Care Team (Latest Contact Info) Description 01/24/2023 Travel Social History Tobacco Use Types Packs/Day [...] PM CDT documented as of this encounter Plan of Treatment Not on file documented as of this encounter Visit Diagnoses Not on filedocumented in this encounter Care Teams Cartridge Assembling Machine Adjuster Relationship Specialty Start Date End Date Orin Bond APRN, CNP [address] [place] [address] PCP - General Advanced Practice Nurse 12/06/21 documented as of this encounter
--- OUTSIDE RECORDS SUMMARY | 2024-08-28 02:26 | XMS_ITS | Encounter Summary ---
Author Organization [facility] Address [address] [place] [address] Phone Care Team Providers Care Automation Clerk Name Role Phone Orin Bond APRN, SEARCH COORDINATOR Primary Care P rovider Malia Field APRN, DENTURE WAXER Unavailable +- [phone] Reason for Visit * Reason Comments Numbness Numbness and tinglin g of left side with severe weakness , passed out at work burning in left toes radiates to upper body . Seen cardiology , and neurology , Encounter Details Date Type Department Care Team (Late st Contact Info) Description 04/17/2023 10:45 AM CDT Office Visit [facility] - Primary Care - [place] [address] [place] [id number] Teressa Gordon, PAC [address] [place] [address] Fatigue, unspecified type (Primary Dx); Dizziness and giddiness Discharge Disposition: Discharged to home or Selfcare [...] suspected to have Coronavirus/COVID-19? No / Unsure 04/17/2023 10:24 AM CDT documented as of this encounter Last Filed Vital Signs Vital Sign Reading Time Taken Comments Blood Pressure 114/70 04/17/2023 11:00 AM CDT Pulse 54 04/17/2023 11:00 AM CDT Temperature 36.2 ??C (97.2 ??F) 04/17/2023 11:00 AM C DT Respiratory Rate 12 04/17/2023 11:00 AM CDT Oxygen Saturation 100% 04/17/2023 11:00 AM CDT Inhaled Oxygen Concentration - - Weight 71.2 kg (157 lb) 04/17/2023 11:00 AM CDT Height 175.3 cm (5' 9 ) 04/17/2023 11:00 AM CDT Body Mass Index 23.18 04/17/2023 11:00 AM CDT documented in this encounter Functional Status * Question Answer Date of Assessment Author Little interest or pleasure in doing things Not at all 04/17/2023 11:00 AM CDT Sherice Baxter RMA Feeling down, depressed, or hopeless Several days 04/17/2023 11:00 AM CDT Talya Baxter RMA * Over the past 2 weeks, how often have you been bothered by any of the following problems? Question Answer Date of Assessment Author Patient Health Questionnaire -2 Score 1 04/17/2023 11:00 AM CDT Talya Baxter RMA documented as of this encounter Progress Notes * Talya Baxter RMA - 04/17/2023 10:45 AM CDT Yomaira Ford, 33 y.o., female is here for Numbness (Numbness and tingling of left side ) Medication Refills: Patient reports/denies need for medication refills. Orders Pended: no Requested Prescriptions No prescriptions requested or ordered in this encounter Home Medications Medication Sig Start Date End Date Taking? Authorizing Provider meclizine (ANTIVERT) 12.5 MG Tablet Take 1 Tablet by mouth every 8 hours as needed for Dizziness orNausea. 03/06/23 Malia Field APRN, DENTURE WAXER Multiple Vitamins-Minerals (MULTIPLE VITAMINS/WOMENS PO) Take by mouth. Provider, MD Felipe There are no discontinued medications. I have [...] Hepatitis C Virus (HCV) Screening Never done Orders Pended: no The following BPA's have been addressed with the patient today: BMI * Teressa Gordon, PAC - 04/17/2023 10:45 AM CDT Chief Complaint: Chief Complaint Patient presents with ??? Numbness Numbness and tingling of left side with severe weakness , passed out at work burning in left toes radiates to upper body . Seen cardiology , and neurology , Assessment/Plan: Diagnoses and all orders for this visit: Fatigue, unspecified type Dizziness and giddiness Other orders - Escitalopram Oxalate 5 MG Tablet; TAKE 1 TABLET BY MOUTH EVERY DAY FOR 7 DAYS, THEN INCREASE TO 2TABLETS DAILY This is being worked up properly I have nothing more to add I would agree that NEURO f/u for MRI brain without her braces on would be appropriate May benefit from- MRI MRA brain EEG [facility] Cardio consult Will wait for neuro work up and results which is actively going on F/u with PCP after work up from neuro On exam- pt is hyper reflexic and GABI on L side are mildly spastic Also would advise f/u with CLIENT EXPERIENCE SPECIALIST as her sx seem to be hormonal based Subjective: Ms. Yomaira Ford is a 33 y.o. female here today for above. Since December 2022 pt has had a list of sx that have involved her L side of her body and seem to be most prominent around day 5-10 of her menses She has seen CLIENT EXPERIENCE SPECIALIST, cardio, and is actively seeing neuro Had and MRI but her braces caused an artifact and it has to be redone She has episodes and weakness and numbness as well as odd neuro like sx specifically of the L side (face, scalp, head, arms, legs) They come and go but have affected her job, driving, etc She is now depressed over her issues She notices that her menses day 5-10 are a trigger or when it peaks She is in the middle of a work up ROS: Review of Systems All other systems reviewed and are negative. VITAL SIGNS: BP Readings from Last 3 Encounters: 04/17/23 114/70 03/06/23 116/68 01/24/23 108/70 Wt Readings from Last 3 Encounters: 04/17/23 157 lb (71.2 kg) 03/06/23 162 lb (73.5 kg) 01/24/23 160 lb (72.6 kg) Vitals: 04/17/23 1100 BP: 114/70 BP Location: Right Arm BP Position: Sitting BP Cuff Size: Regular Pulse: 54 Resp: 12 Temp: 97.2 ??F (36.2 ??C) TempSrc: Temporal SpO2: 100% Weight: 157 lb (71.2 kg) Height: 5' 9 (1.753 m) Body mass index is 23.18 kg/m??. PHYSICAL EXAM: Physical Exam Vitals reviewed. Constitutional: Appearance: Normal appearance. HENT: Head: Normocephalic and atraumatic. Right Ear: Tympanic membrane normal. Left Ear: Tympanic membrane normal. Nose: Nose normal. Mouth/Throat: Mouth: Mucous membranes are moist. Eyes: Extraocular Movements: Extraocular movements intact. Conjunctiva/sclera: Conjunctivae normal. Pupils: Pupils are equal, round, and reactive to light. Cardiovascular: Rate and Rhythm: Regular rhythm. Heart sounds: Normal heart sounds. Pulmonary: Breath sounds: Normal breath sounds. Abdominal: Palpations: Abdomen is soft. Musculoskeletal: Cervical back: Neck supple. Neurological: General: No focal deficit present. Mental Status: She is alert. Comments: Hyper reflexic B upper and lower extremities LEFT side (face, arms, legs) all have decreased sensation and are overall weaker vs the R GABI intact but more spastic on L vs R Neg drift Tongue midline SS equal No obvious facial droop Psychiatric: Mood and Affect: Mood normal. Labs/Studies [...] LDL 51 12/09/2022 No results found for: PSASCREEN, PSA, PSAFREE, PSAPCNTFREE, PSATOTAL @MAMMOFINDINGS@ EKG 12 LEAD Result Date: 01/29/2023 Normal sinus rhythm Normal ECG When compared with ECG of 22-JAN-2023 14:33, (Unconfirmed) No significant change was found Confirmed by Raj Moore ([id number]) on 01/29/2023 7:56:00 AM EKG 12 LEAD Result Date: 01/29/2023 Normal sinus rhythm Normal ECG No previous ECGs available Confirmed by Raj Moore ([id number]) on 01/29/2023 7:55:59 AM Recent Procedure Details No resulted procedures found. FOLLOWUP: Follow-up Information Return in about 4 weeks (around 05/15/2023) for Acute symptom check, 30 MIN EXTENDED VISIT. LOS Today OFFICE/OP EST LVL 4 MOD [...] given to the patient. 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 Patient [...] our referral team or the referring physician. documented in this encounter Plan of Treatment Not on file documented as of this encounter Visit Diagnoses Diagnosis Fatigue, unspecified type- Primary Dizziness and giddiness documented in this encounter Additional Health Concerns Assessment Noted Time PHQ-9 Depression Total Score: 4 04/17/20 23 11:00 AM CDT documented as of this encounter Care Teams Automation Clerk Relationship Specialty Start Date End Date rOin Bond APRN, SEARCH COORDINATOR [address] [place] [address] PCP - General Advanced Practice Nurse 12/06/21 Malia Field APRN, DENTURE WAXER [address] [place] [address] Nurse Practitioner Advanced Practice Nurse 03/06/23 documented as of this encounter
--- OUTSIDE RECORDS SUMMARY | 2024-08-28 02:26 | XMS_ITS | Encounter Summary ---
Author Organization [facility] Address [address] [place] [address] Phone Care Team Providers Care Interlibrary Loan Services Librarian Name Role Phone Orin Bond APRN, PEANUT SEPARATOR Primary Care P rovider Malia Field APRN, AUTO COLLISION REPAIR INSTRUCTOR Unavailable [phone]- [phone] Reason for Referral * Radiology Services (Routine) - Closed Specialty Diagnoses / Procedures Referred By Contac t Referred To Contact Radiology Diagnoses Heat syncope, initial encounter Heat exhaustion, initial encounter Procedures MRI BRAIN W/WO CONTRAST Malia Field APRN, AUTO COLLISION REPAIR INSTRUCTOR [address] [place] [address] Phone: tel: fax: Referral ID Status Reason Start Date Expiration Date Visits Re quested Visits Authorized [id number] Closed 03/06/2023 1 1 Reason for Visit * Radiology Services (Routine) - Closed Specialty Diagnoses / Procedures Referred By Contac t Referred To Contact Radiology Diagnoses Heat syncope, initial encounter Heat exhaustion, initial encounter Procedures MRI BRAIN W/WO CONTRAST Malia Field APRN, AUTO COLLISION REPAIR INSTRUCTOR [address] [place] [address] Phone: tel: fax: Referral ID Status Reason Start Date Expiration Date Visits Re quested Visits Authorized [id number] Closed 03/06/2023 1 1 Encounter Details Date Type Department Care Team (Latest Contact Info) Description 03/26/2023 9:51 AM CDT - 03/26/2023 11:59 PM CDT Hospital Encounter [facility] MRI [address] [place] [address] Malia Field APRN, AUTO COLLISION REPAIR INSTRUCTOR [address] [place] [address] Discharge Disposition: Discharged to home or Selfcare [...] suspected to have Coronavirus/COVID-19? No / Unsure 03/26/2023 9:45 AM CDT documented as of this encounter Medications at Time of Discharge meclizine (ANTIVERT) 12.5 MG TabletIndication s:Heat syncope, initial encounter Take 1 Tablet by mouth every 8 hours as needed for Dizziness or Nausea. 90 Tablet 3 03/06/2023 Multiple Vitamins-Mineral s (MULTIPLE VITAMINS/WOMENS PO) Take by mouth. documented as of this encounter Progress Notes * Malia Field, YURI, AUTO COLLISION REPAIR INSTRUCTOR - 03/26/2023 10:00 AM CDT MRI image results were not great due to artifact, if needed, may order repeat MRI at later date. documented in this encounter Plan of Treatment Not on file documented as of this encounter Procedures Procedure Name Priority Date/Time Associated Diagnosis Comments MRI BRAIN W/WO CONTRAST Routine 03/26/2023 11:20 AM CDT Heat syncope, initial encounter documented in this encounter Results * MRI BRAIN W/WO [...] 12:02 PM - Electronically signed by ??Tyler ALFARO: DOMINIC D: ??03/26/2023 12:02 PM T: ??03/26/2023 12:02 PM Report ID: [id number] Reading Location: [id number] Procedure Note Tyler Curtis MD - 03/26/2023 [...] signed by Tyler Curtis M.D. MZ: DOMINIC Monte: 03/26/2023 12:02 PM Report ID: [id number] Reading Location: [id number] IMPRESSION: Susceptibility artifact obscures a large portion of the brain on the diffusion-weighted sequence and results in milder artifact on multiple additional sequences, including the FLAIR sequence. Within this limitation, no acute intracranial findings. Consider repeat examination with orthodontic appliances removed, if clinically warranted. Malia Field APRN, AUTO COLLISION REPAIR INSTRUCTOR IMG MR ORDERABLES Fi nal Result documented in this encounter Visit Diagnoses Diagnosis Heat syncope, initial encounter documented in this encounter Administered Medications Inactive Administered Medications - up to 3 most recent administrations Medication Order MAR Action Action Date Dose Rate Site gadoteridol (PROHANCE) injection 16 mL 16 mL, Intravenous, ONCE, 1 dose, On Fri03/26/23 at 1030 Given 03/26/2023 10:48 AM CDT 16 mL documented in this encounter Care Teams Interlibrary Loan Services Librarian Relationship Specialty Start Date End Date Orin Bond APRN, PEANUT SEPARATOR [address] [place] [address] PCP - General Advanced Practice Nurse 12/06/21 Malia Field APRN, AUTO COLLISION REPAIR INSTRUCTOR [address] [place] [address] Nurse Practitioner Advanced Practice Nurse 03/06/23 documented as of this encounter
--- OUTSIDE RECORDS SUMMARY | 2024-08-28 02:26 | XMS_ITS | Encounter Summary ---
Author Organization [facility] Address [address] [facility] [place] [address] Phone Care Team Providers Care Fish Skinning Machine Feeder Name Role Phone Orin Bond APRN, CORRECTIONS CADET Primary Care P rovider Malia Field APRN, SECURITY BUSINESS ANALYST Unavailable [phone]- [phone] Encounter Details Date Type Department Care Team (Late st Contact Info) Description 03/06/2023 3:35 PM CDT [facility] [address] [place] [id number] Malia Field, YURI, SECURITY BUSINESS ANALYST [address] [place] [address] Heat syncope, initial encounter; Heat exhaustion, initial encounter Discharge Disposition: Discharged to home or Selfcare [...] PM CDT documented as of this encounter Progress Notes * Malia Field APRN, CNS - 03/06/2023 3:35 PM CDT Please call Yomaira and let her know that her potassium is still 3.4 just slightly lower than normal, and her H&H are just a bit lower than considered normal. Her magnesium and B12 are normal. Am sending this to her PCP as well so she can be aware and determine if she would like to address theseresults. documented in this encounter Plan of Treatment Not on file documented as of this encounter Procedures Procedure Name Priority Date/Time Associated Diagnosis Comments CBC WITH AUTO DIFFERENTIAL Routine 03/06/2023 3:37 PM CDT Heat syncope, initial encounter Heat exhaustion, initial encounter VITAMIN B12 Routine 03/06/2023 3:37 PM CDT Heat syncope, initial encounter Heat exhaustion, initial encounter MAGNESIUM (MG) Routine 03/06/2023 3:37 PM CDT Heat syncope, initial encounter Heat exhaustion, initial encounter CMP (COMPREHENSIVE METABOLIC PANEL) Routine 03/06/2023 3:37 PM CDT Heat syncope, initial encounter Heat exhaustion, initial encounter COMPLETE BLOOD COUNT (CBC) WITH DIFF Routine 03/06/2023 3:37 PM CDT Heat syncope, initial encounter Heat exhaustion, initial encounter documented in this encounter Results * (ABNORMAL) CBC WITH AUTO DIFFERENTIAL (03/06/2023 3:37 PM CDT) WBC 7.37 4.00 - 12.00 10(3)/mcL 03/06/2023 3:59 PM CDT [facility] RBC 3.81 3.80 - 5.30 10(6)/mcL 03/06/2023 3:59 PM CDT [facility] HEMOGLOBIN (HGB) 11.9(L) 12.0 - 15.8 g/dL 03/06/2023 3:59 PM CDT [facility] HEMATOCRIT (HCT) 35.8(L) 36.0 - 47.0 % 03/06/2023 3:59 PM CDT [facility] MCV 94.0 82.0 - 96.0 fL 03/06/2023 3:59 PM CDT [facility] MCH 31.2 26.0 - 34.0 pg 03/06/2023 3:59 PM CDT [facility] MCHC 33.2 31.0 - 36.0 g/dL 03/06/2023 3:59 PM CDT [facility] PLATELET COUNT 215 140 - 440 10(3)/mcL 03/06/2023 3:59 PM CDT [facility] RDW 11.8 11.8 - 15.5 % 03/06/2023 3:59 PM CDT [facility] MPV 9.9 9.7 - 12.4 fL 03/06/2023 3:59 PM CDT [facility] NEUTROPHILS 62.5 47.0 - 73.0 % 03/06/2023 3:59 PM CDT [facility] LYMPHOCYTES 27.8 18.0 - 42.0 % 03/06/2023 3:59 PM CDT [facility] MONOCYTES 7.9 4.0 - 12.0 % 03/06/2023 3:59 PM CDT [facility] EOSINOPHILS 1.5 0.0 - 5.0 % 03/06/2023 3:59 PM CDT [facility] BASOPHILS 0.3 0.0 - 1.0 % 03/06/2023 3:59 PM CDT [facility] ABSOLUTE NEUTROPHILS 4.61 1.60 - 7.70 10(3)/mcL 03/06/2023 3:59 PM CDT [facility] ABSOLUTE LYMPHOCYTES 2.05 1.30 - 3.20 10(3)/mcL 03/06/2023 3:59 PM CDT [facility] ABSOLUTE MONOCYTES 0.58 0.20 - 1.00 10(3)/mcL 03/06/2023 3:59 PM CDT [facility] ABSOLUTE EOSINOPHIL 0.11 0.00 - 0.40 10(3)/[facility] 03/06/2023 3:59 PM CDT [facility] ABSOLUTE BASOPHILS 0.02 0.00 - 0.10 10(3)/[facility] 03/06/2023 3:59 PM CDT [facility] NRBC PER 100 WBC 0 03/06/20 3:59 PM CDT [facility] Blood Venipuncture / Unknown 03/06/2023 3:37 PM CDT 03/06/2023 3:55 PM CDT us Malia Field ACCOUNT SERVICES MANAGER, SECURITY BUSINESS ANALYST HEMATOLOGY ORDERABLE S Final Result [facility] [address] [place] [address] * (ABNORMAL) CMP (COMPREHENSIVE METABOLIC PANEL) (03/06/2023 3:37 PM CDT) SODIUM 137 136 - 144 mmol/L 03/06/2023 4:16 PM CDT [facility] POTASSIUM 3.4(L) 3.5 - 5.1 mmol/L 03/06/2023 4:16 PM CDT [facility] CHLORIDE 104 100 - 110 mmol/L 03/06/2023 4:16 PM CDT [facility] CO2, VENOUS 22 22 - 32 mmol/L 03/06/2023 4:16 PM CDT [facility] ANION GAP 14.4 8.0 - 20.0 mmol/L 03/06/2023 4:16 PM CDT [facility] GLUCOSE 93 70 - 99 mg/dL 03/06/2023 4:16 PM CDT [facility] BUN 14 6 - 20 mg/dL 03/06/2023 4:16 PM T [facility] CREATININE, BLOOD 0.69 0.60 - 1.10 mg/dL 03/06/2023 4:16 PM [facility] BUN/CREATININE RATIO 20 12 - 20 ratio 03/06/2023 4:16 PM CDT [facility] TOTAL PROTEIN 7.5 6.0 - 8.3 g/dL 03/06/2023 4:16 PM [facility] ALBUMIN 4.6 3.5 - 5.2 g/dL 03/06/2023 4:16 PM [facility] Comment: The colormetric methods used for the determination of Albumin may lead to falsely elevated test results in patients suffering from renal failure or insufficiency due to interference with other proteins. A/G RATIO 1.6 1.0 - 2.0 03/06/2023 4:16 PM T [facility] CALCIUM 9.2 8.9 - 10.3 mg/dL 03/06/2023 4:16 PM [facility] T BILI 0.6 <=1.2 mg/dL 03/06/2023 4:16 PM [facility] SGOT (AST) 14 <=32 U/L 03/06/2023 4:16 PM [facility] SGPT (ALT) 11 <=41 U/L 03/06/2023 4:16 PM [facility] ALKALINE PHOSPHATASE 46 35 - 105 U/L 03/06/2023 4:16 PM [facility] IS THE PATIENT REQUIRED TO BE FASTING? No 03/06/2023 4:16 PM [facility] GFR, ESTIMATED >60 >=60 03/06/2023 4:16 PM T [facility] Comment: Creatinine Clearance is the preferred criteria for selecting drug dose adjustments in renally impaired patients. ??The GFR is provided as additional pertinent clinical information. GFR is reported in mL/min/1.73 sq m. Calculation based on the Chronic Kidney Disease Epidemiology Collaboration (CKD- EPI) equation refit without adjustment for race. GFR, EST. >60 >=60 023 4:16 PM CDT [facility] GFR, EST. NONAFRICAN >60 >=60 03/06/2023 4:16 PM CDT [facility] Blood Venipuncture / Unknown 03/06/2023 3:37 PM CDT 03/06/2023 3:55 PM CDT Malia Field APRN, SECURITY BUSINESS ANALYST CHEMISTRY ORDERABLES Final Result Performing Organization Address City/[facility]/ZIP Co de Phone Number [facility] [address] [place] [address] * VITAMIN B12 (03/06/2023 3:37 PM CDT) VITAMIN B12 797 243 - 894 pg/mL 03/06/2023 4:35 PM CDT [facility] Blood Venipuncture / Unknown 03/06/2023 3:37 PM CDT 03/06/2023 3:55 PM CDT Malia Field APRN, SECURITY BUSINESS ANALYST CHEMISTRY ORDERABLES Final Result [facility] [address] [place] [address] * MAGNESIUM (MG) (03/06/2023 3:37 PM CDT) MAGNESIUM 1.9 1.8 - 2.5 mg/dL 03/06/2023 4:16 PM CDT [facility] Blood Venipuncture / Unknown 03/06/2023 3:37 PM CDT 03/06/2023 3:55 PM CDT Malia Field APRN, SECURITY BUSINESS ANALYST CHEMISTRY ORDERABLES Final Result [facility] [address] [place] [address] documented in this encounter Visit Diagnoses Diagnosis Heat syncope, initial encounter Heat exhaustion, initial encounter documented in this encounter Care Teams Fish Skinning Machine Feeder Relationship Specialty Start Date End Date Orin Bond APRN, CORRECTIONS CADET [address] [place] [address] PCP - General Advanced Practice Nurse 12/06/21 Malia Field APRN, SECURITY BUSINESS ANALYST [address] [place] [address] Nurse Practitioner Advanced Practice Nurse 03/06/23 documented as of this encounter
--- OUTSIDE RECORDS SUMMARY | 2024-08-28 02:26 | XMS_ITS | Encounter Summary ---
Author Organization [facility] Address [address] [facility] [place] [address] Phone Care Team Providers Care Manager Administrative Name Role Phone Orin Bond APRN, CNP Primary Care P rovider Reason for Visit * Reason Onset Date Comments Results 02/10/2023 Encounter Details Date Type Department Care Team (Late st Contact Info) Description 02/10/2023 Telephone [facility] [address] [place] [address] Orin Bond APRN, CITLALLI [address] [place] [address] Results Social History Tobacco Use Types Packs/Day Years [...] suspected to have Coronavirus/COVID-19? No / Unsure 01/31/2023 7:23 AM CDT documented as of this encounter Miscellaneous Notes * Telephone Encounter - Naomi Bentley, RN - 02/10/2023 2:02 PM CDT Per PCP, normal sinus rhythm noted with event. Patient aware and verbalized understanding. No questions for bid writer. * Telephone Encounter - Isaura Lo RN - 02/10/2023 9:49 AM CDT S: Jenna from [facility] calling with symptoms from patient. B: Patient on Holter monitor 01/31/23 A: Patient reported fainting on diary at 01/31/23 at 1145. Holter monitor report will be sent as office fax number was provided to caller. R Please advise. documented in this encounter Plan of Treatment Not on file documented as of this encounter Visit Diagnoses Not on filedocumented in this encounter Care Teams Manager Administrative Relationship Specialty Start Date End Date Orin Bond APRN, PIZZA CHEF [address] [place] [address] PCP - General Advanced Practice Nurse 12/06/21 documented as of this encounter
--- OUTSIDE RECORDS SUMMARY | 2024-08-28 02:26 | XMS_ITS | Encounter Summary ---
Author Organization [facility] Address [address] [facility] [place] [address] Phone Care Team Providers Care Supervisor Quilting Name Role Phone Orin Bond APRN, CNP Primary Care P rovider Reason for Visit * Reason Comments Preventive Care Encounter Details Date Type Department Care Team (Late st Contact Info) Description 12/09/2022 9:15 AM CDT Office Visit [facility] - Primary Care - [place] [address] [place] [address] Orin Bond APRN, CNP [address] [place] [address] Preventative health care (Primary Dx); Situational anxiety Discharge Disposition: Discharged to home or Selfcare [...] Sign Reading Time Taken Comments Blood Pressure 110/70 12/09/2022 9:10 AM CDT Pulse 76 12/09/2022 9:10 AM CDT Temperature 36.7 ??C (98.1 ??F) 12/09/2022 9:10 AM CD T Respiratory Rate 20 12/09/2022 9:10 AM CDT Oxygen Saturation 100% 12/09/2022 9:10 AM CDT Inhaled Oxygen Concentration - - Weight 72.6 kg (160 lb) 12/09/2022 9:10 AM CDT Height 175.3 cm (5' 9 ) 12/09/2022 9:10 AM CDT Body Mass Index 23.63 12/09/2022 9:10 AM CDT documented in this encounter Functional Status * Question Answer Date of Assessment Author Little interest or pleasure in doing things Not at all 12/09/2022 9:00 AM CDT Lilian Castellon CM A Feeling down, depressed, or hopeless Not at all 12/09/2022 9:00 AM CDT Lilian Castellon CM A * Over the past 2 weeks, how often have you been bothered by any of the following problems? Question Answer Date of Assessment Author Patient Health Questionnaire-2 Score 0 11/30 9:00 AM CDT Lilian Castellon CMA documented as of this encounter Patient Instructions * Patient Instructions* Orin Bond APRN, CNP - 12/09/2022 9:15 AM CDT Have fasting labs done, the results will be released to [facility] when available. Please continue with a balanced lifestyle of exercise and healthy eating. If any question, please call. Thanks for coming in today! documented in this encounter Progress Notes * Lilian Castellon CMA - 12/09/2022 9:15 AM CDT Yomaira Ford, 32 y.o., female is here for No chief complaint on file. Medication Refills: Patient reports/denies need for medication refills. Orders Pended: no Requested Prescriptions No prescriptions requested or ordered in this encounter Home Medications Medication Sig Start Date End Date Taking? Authorizing Provider Multiple Vitamins-Minerals (MULTIPLE VITAMINS/WOMENS PO) Take by mouth. Yes Provider, MD Felipe There are no discontinued [...] Maintenance Due Topic Date Due ??? Hepatitis B Immunization (1 of 3 - 3-dose series) Never done ??? SARS-COV-2 Immunization (4 - Booster for Moderna series) 09/06/2021 Orders Pended: no The following BPA's have been addressed with the patient today: Depression, BMI * Orin Bond APRN, CNP - 12/09/2022 9:15 AM CDT [facility] [address] [address] Dept: [phone] Dept Loc: [phone] Loc Patient: Yomaira Ford : 1990 Sex: female Subjective: HPI: Yomaira Ford presents for Preventive Care states doing ok. Due for fasting labs. Abnormal TSH in the past. No daily meds. States some situational anxiety - chest pressure, palpitations. HM: updated ROS Fourteen point review of systems negative except as documented in HPI. Objective: Vitals: 12/09/22 0910 BP: 110/70 Pulse: 76 Resp: 20 Temp: 98.1 ??F (36.7 ??C) SpO2: 100% Weight: 160 lb (72.6 kg) Height: 5' 9 (1.753 m) LMP 08/07/2020 (Approximate) Body mass index is 23.63 kg/m??. Physical Exam Vitals and nursing note reviewed. [...] orders for this visit: Preventative health care - COMPLETE BLOOD COUNT (CBC) WITH DIFF; Future - CMP (COMPREHENSIVE METABOLIC PANEL); Future - LIPID PANEL; Future - THYROID SCREEN WITH REFLEX; Future Situational anxiety - propranolol (INDERAL) 10 MG Tablet; Take 1 Tablet by mouth 3 times daily. As needed for anxiety labs today Cont with balanced lifestyle. Start propranolol tid prn. Follow-up Information Return in about 1 year (around 12/10/2023). LOS Today PM EST 18-39 LVL C documented in this encounter Miscellaneous Notes * Addendum Note - Lilian Castellon CMA - 12/09/2022 9:15 AM CDTAddended by: LILIAN CASTELLON on: 02/10/2023 11:18 AM Modules accepted: Orders documented in this encounter Plan of Treatment Not on file documented as of this encounter Visit Diagnoses Diagnosis Preventative health care (Adult)- Primary Routine general medical examination at a health care facility Situational anxiety Other anxiety states documented in this encounter Care Teams Supervisor Quilting Relationship Specialty Start Date End Date Orin Bond APRN, CNP [address] [place] [address] PCP - General Advanced Practice Nurse 12/06/21 documented as of this encounter
--- OUTSIDE RECORDS SUMMARY | 2024-08-28 02:26 | XMS_ITS | Encounter Summary ---
Author Organization [employer] Care Team Providers Care Mechanical Service Representative Name Role Phone Orin Bond APRN, CNP Primary Care P rovider Encounter Details Date Type Department Care Team (Latest Contact Info) Description 01/22/2023 Travel Social History Tobacco Use Types Packs/Day [...] suspected to have Coronavirus/COVID-19? No / Unsure 01/22/2023 2:30 PM CDT documented as of this encounter Plan of Treatment Not on file documented as of this encounter Visit Diagnoses Not on filedocumented in this encounter Care Teams Mechanical Service Representative Relationship Specialty Start Date End Date Orin Bond APRN, CNP [address] [place] [address] PCP - General Advanced Practice Nurse 12/06/21 documented as of this encounter
--- OUTSIDE RECORDS SUMMARY | 2024-08-28 02:26 | XMS_ITS | Encounter Summary ---
Author Organization [facility] Address [address] [facility] [place] [place] [address] Phone Care Team Providers Care Elocution Teacher Name Role Phone Orin Bond APRN, CNP Primary Care P rovider Reason for Visit * Reason Onset Date Comments Results 01/31/2023 ECHO Encounter Details Date Type Department Care Team (Late st Contact Info) Description 01/31/2023 Telephone [facility] - [place] [address] [place] [address] Orin Bond APRN, CNP [address] [place] [address] Results (ECHO) Social History Tobacco Use Types Packs/Day Years [...] encounter Miscellaneous Notes * Telephone Encounter - Sabiha Hwang RN - 02/04/2023 10:17 AM CDT [facility] The following note was reviewed with patient. ----- Message from Orin Bond APRN, CNP sent at 01/31/2023 1:15 PM CDT ----- Echo normal. ?? Patient/caller verbalized understanding and agreeable to recommendations. * Telephone Encounter - Naomi Bentley RN - 02/03/2023 11:08 AM CDT Attempted to call pt, no answer, LVM for pt to call back. * Telephone Encounter - Naomi Bentley RN - 01/31/2023 3:07 PM CDT Attempted to call pt, no answer, LVM for pt to call back. * Telephone Encounter - Naomi Bentley RN - 01/31/2023 2:26 PM CDT ----- Message from Orin Bond APRN, CITLALLI sent at 01/31/2023 1:15 PM CDT ----- Echo normal. documented in this encounter Plan of Treatment Not on file documented as of this encounter Visit Diagnoses Not on filedocumented in this encounter Care Teams Elocution Teacher Relationship Specialty Start Date End Date Orin Bond, YURI, PARTNER CCO [address] [place] [address] PCP - General Advanced Practice Nurse 12/06/21 documented as of this encounter
--- OUTSIDE RECORDS SUMMARY | 2024-08-28 02:26 | XMS_ITS | Encounter Summary ---
Author Organization [facility] Address [address] [facility] [place] [address] Phone Care Team Providers Care Operators Teacher Name Role Phone Orin Bond APRN, CUSHION MAKER Primary Care P rovider Jake Velez MD Unavailable [phone] Malia Field APRN, [facility] Unavailable [phone] Reason for Visit * Reason Comments Arrhythmia Encounter Details Date Type Department Care Team (Latest Contact Info) Description 01/10/2022 1:00 PM CDT Office Visit [facility] - Primary Care - [place] [address] [place] [address] Orin Bond APRN, CUSHION MAKER [address] [place], [place] [id number] Subclinical hyperthyroidism (Primary Dx); Palpitations Discharge Disposition: Discharged to home or Selfcare Social History Tobacco Use Types Packs/Day Years Used Date Smoking Tobacco: Never Smokeless Tobacco: Never Tobacco Cessation:Counseling Given: No Alcohol Use Standard Drinks/Week Comments No 0 (1 standard drink = 0.6 oz pur e alcohol) PHQ-2 Answer Date Recorded Total Score - Questions 1-9 4 04/01 Sexually Active Control Partners Comments Yes Oral [...] Sign Reading Time Taken Comments Blood Pressure 120/56 01/10/2022 1:06 PM CDT Pulse 86 01/10/2022 1:06 PM CDT Temperature 36.7 ??C (98 ??F) 01/10/2022 1:06 PM CDT Respiratory Rate 20 01/10/2022 1:06 PM CDT Oxygen Saturation 98% 01/10/2022 1:06 PM CDT Inhaled Oxygen Concentration - - Weight 72.6 kg (160 lb) 01/10/2022 1:06 PM CDT Height 175.3 cm (5' 9 ) 01/10/2022 1:06 PM CDT Body Mass Index 23.63 01/10/2022 1:06 PM CDT documented in this encounter Functional Status [...] Baxter RMA documented as of this encounter Patient Instructions * Patient Instructions* Orin Bond APRN, CNP - 01/10/2022 1:00 PM CDT If any new or worsening symptoms occur, please call office. documented in this encounter Progress Notes * Lilian Boyd CMA - 01/10/2022 1:00 PM CDT Yomaira Ford, 31 y.o., female is here for Arrhythmia Medication Refills: Patient reports/denies need for medication refills. Orders Pended: no Requested Prescriptions No prescriptions requested or ordered in this encounter Home Medications Medication Sig Start Date End Date Taking? Authorizing Provider Lo Loestrin Fe 1 MG-10 MCG / 10 MCG Tablet Take 1 Tablet by mouth daily. Patient not taking: Reported on 01/10/2022 10/25/21 ProviderFelipe MD Multiple Vitamins-Minerals (MULTIPLE VITAMINS/WOMENS PO) Take by mouth. Yes ProviderFelipe MD There are no discontinued medications. I have reviewed the home medication list with the patient and have reconciled discrepancies. The list is accurate to the best of my knowledge. Smoking Status: Social History Tobacco Use ??? Smoking status: Never Smoker ??? Smokeless tobacco: Never Used Vaping Use ??? Vaping Use: Never used Substance Use Topics ??? Alcohol use: No ??? Drug use: No Smoking Cessation Counseling Given: no Health Care Maintenance: There are no preventive care reminders to display for this patient. Orders Pended: no The following BPA's have been addressed with the patient today: N/A * Orin Bond APRN, CNP - 01/10/2022 1:00 PM CDT [facility] [address] [address] Dept: [phone] Dept Loc: [phone] Loc Patient: Yomaira Ford : 1990 Sex: female Subjective: HPI: Yomaira Ford presents for Arrhythmia Reports she is having palpitations, feels like skipping heart beats, feels like she is going to pass out. Is not getting better. States she feels SOB at times. Nothing triggers it. States systolic has been in low 100s. Reports eating/drinking ok. Some nausea when she does not feel good. Has had these episodes in the past, some times last days or week and then resolves. This episode started Friday. First episode occurred after having her son 5y ago. Labs 11/2021 showed slightly suppressed TSH with normal FT4. shes had a cardiac workup with cardiology 5 years ago with her first episode and everything looked fine . ROS Fourteen point review of systems negative except as documented in HPI. Objective: Vitals: 01/10/22 1306 BP: 120/56 BP Location: Right Arm BP Position: Sitting BP Cuff Size: Regular Pulse: 86 Resp: 20 Temp: 98 ??F (36.7 ??C) TempSrc: Temporal SpO2: 98% Weight: 160 lb (72.6 kg) Height: 5' 9 (1.753 m) LMP 08/07/2020 (Approximate) Physical Exam Vitals and nursing note reviewed. Constitutional: General: She is not in acute distress. Appearance: She is well-developed. HENT: Head: Normocephalic and atraumatic. Right Ear: External ear normal. Left Ear: External ear normal. Eyes: Conjunctiva/sclera: Conjunctivae normal. Cardiovascular: Rate and Rhythm: Normal rate and regular rhythm. Heart sounds: Normal heart sounds. Pulmonary: Effort: Pulmonary effort is normal. No respiratory distress. Breath sounds: Normal breath sounds. Skin: General: Skin is warm and dry. Neurological: Mental Status: She is alert and oriented to person, place, and time. Psychiatric: Behavior: Behavior normal. Thought Content: Thought content normal. Judgment: Judgment normal. Medical Decision Making: Assessment & Plan Diagnoses and all orders for this visit: Subclinical hyperthyroidism - ANTI THYROID PEROXIDASE ANTIBODY; Future - THYROXINE (T4) FREE; Future - TRIIODOTHYRININE (T3) FREE; Future - THYROID STIMULATING HORMONE (TSH); Future Palpitations - BASIC METABOLIC PANEL W/ CALCIUM TOTAL; Future thyroid workup, check electrolytes. possible thyroid US and referral to endo pending results. Follow-up Information Return if symptoms worsen or fail to improve. documented in this encounter Miscellaneous Notes * Addendum Note - Ontis, Anna Marie A, RMA - 01/10/2022 1:00 PM CDTAddended by: ANNA MARIE CUEVAS on: 07/21/2023 06:59 AM Modules accepted: Orders LICENSED PRACTICAL documented in this encounter Plan of Treatment Scheduled Orders Name Type Priority Associated Diagnoses Orde r Schedule ANTI THYROID PEROXIDASE ANTIBODY Lab Routine Subclinical hyperthyroidism Expected: 02/12/2022, Expires: 04/26/2022 THYROXINE (T4) FREE Lab Routine Subclinical hyperthyroidism Expected: 02/12/2022, Expires: 04/26/2022 THYROID STIMULATING HORMONE (TSH) Lab Routine Subclinical hyperthyroidism Expected: 01/23/2022 (Approximate), Expires: 04/26/2022 BASIC METABOLIC PANEL W/ CALCIUM TOTAL Lab Routine Palpitations Expected: 01/10/2022 (Approximate), Expires: 01/17/2022 documented as of this encounter Visit Diagnoses Diagnosis Subclinical hyperthyroidism- Primary Thyrotoxicosis without mention of goiter or other cause, without mention of thyrotoxic crisis or storm Palpitations documented in this encounter Care Teams Operators Teacher Relationship Specialty Start Date End Date Orin Bond APRN, CUSHION MAKER [address] [place] [address] PCP - General Advanced Practice Nurse 12/06/21 Jake Velez MD [address] [place] [address] Consulting Physician Neurology 06/16/23 Malia Field APRN, TIRE BALANCER [address] [place] [address] Nurse Practitioner Advanced Practice Nurse 03/06/23 documented as of this encounter
--- OUTSIDE RECORDS SUMMARY | 2024-08-28 02:26 | XMS_ITS | Encounter Summary ---
Author Organization [employer] Care Team Providers Care Export Coordinator Name Role Phone Orin Bond APRN, CLOTHING DESIGNER Primary Care P rovider Malia Field APRN, SPORTS INFORMATION DIRECTOR Unavailable [phone] Encounter Details Date Type Department Care Team (Latest Contact Info) Description 04/17/2023 Travel Social History Tobacco Use Types Packs/Day [...] things Not at all 04/17/2023 11:00 AM CDSherice Neves RMA Feeling down, depressed, or hopeless Several days 04/17/2023 11:00 AM Talya Lovell RMA * Over the past 2 weeks, how often have you been bothered by any of the following problems? Question Answer Date of Assessment Author Patient Health Questionnaire -2 Score 1 04/17/2023 11:00 AM Talya Lovell RMA documented as of this encounter Plan of Treatment Not on file documented as of this encounter Visit Diagnoses Not on filedocumented in this encounter Additional Health Concerns Assessment Noted Time PHQ-9 Depression Total Score: 4 04/17/20 11:00 AM CDT documented as of this encounter Care Teams Export Coordinator Relationship Specialty Start Date End Date Orin Bond APRN, CLOTHING DESIGNER [address] [place] [address] PCP - General Advanced Practice Nurse 12/06/21 Malia Field APRN, SPORTS INFORMATION DIRECTOR [address] [place] [address] Nurse Practitioner Advanced Practice Nurse 03/06/23 documented as of this encounter
--- OUTSIDE RECORDS SUMMARY | 2024-08-28 02:26 | XMS_ITS | Encounter Summary ---
Author Organization [facility] Address [address] [facility] [place] [address] Phone Care Team Providers Care Stretch Press Operator Name Role Phone Orin Bond APRN, CNP Primary Care P rovider Reason for Visit * Reason Onset Date Comments Results 02/13/2023 Holter monitor Encounter Details Date Type Department Care Team (Late st Contact Info) Description 02/13/2023 Telephone [facility] - [place] [address] [place] [address] Orin Bond APRN, CNP [address] [place] [address] Results (Holter monitor ) Social History Tobacco Use Types Packs/Day [...] Telephone Encounter - Naomi Bentley RN - 02/14/2023 9:09 AM CDT Patient aware and verbalized understanding. No questions for sign writer letterer or painter. Pt has a neuro appt 03/06/23. * Telephone Encounter - Naomi Bentley RN - 02/13/2023 8:52 AM CDT Attempted to call pt, no answer, LVM for pt to call back. * Telephone Encounter - Naomi Bentley RN - 02/13/2023 7:59 AM CDT ----- Message from Orin Bond APRN, CNP sent at 02/12/2023 9:07 PM CDT ----- Holter was normal. She needs to see neuro documented in this encounter Plan of Treatment Not on file documented as of this encounter Visit Diagnoses Not on filedocumented in this encounter Care Teams Stretch Press Operator Relationship Specialty Start Date End Date Orin Bond APRN, CNP [address] [place] [address] PCP - General Advanced Practice Nurse 12/06/21 documented as of this encounter
--- OUTSIDE RECORDS SUMMARY | 2024-08-28 02:26 | XMS_ITS | Encounter Summary ---
Author Organization [employer] Care Team Providers Care Clinical Cytopathologist Name Role Phone Orin Bond APRN, CNP Primary Care P rovider Encounter Details Date Type Department Care Team (Latest Contact Info) Description 01/10/2022 Travel Social History Tobacco Use Types Packs/Day [...] on filedocumented in this encounter Care Teams Clinical Cytopathologist Relationship Specialty Start Date End Date Orin Bond APRN, CNP [address] [place] [address] PCP - General Advanced Practice Nurse 12/06/21 documented as of this encounter
--- OUTSIDE RECORDS SUMMARY | 2024-08-28 02:26 | XMS_ITS | Encounter Summary ---
Author Organization [facility] Address [address] [place] [address] Phone Care Team Providers Care Healthcare Account Manager Name Role Phone Orin Bond APRN, CNP Primary Care P rovider Reason for Referral * Radiology Services (Routine) - Closed Specialty Diagnoses / Procedures Referred By Contac t Referred To Contact Radiology Diagnoses Palpitations Fatigue, unspecified type Procedures ADULT TRANS THORACIC ECHO 2D COMPLETE Orin Bond APRN, CNP [address] [place] [address] Phone: tel: fax: Referral ID Status Reason Start Date Expiration Date Visits Re quested Visits Authorized [id number] Closed 01/23/2023 1 1 * Radiology Services (Routine) - Closed Specialty Diagnoses / Procedures Referred By Contac t Referred To Contact Radiology Diagnoses Palpitations Fatigue, unspecified type Procedures HOLTER MONITOR RECORDING ONLY-48 HOUR Orin Bond APRN, CNP [address] [place] [address] Phone: tel: fax: Referral ID Status Reason Start Date Expiration Date Visits Re quested Visits Authorized [id number] Closed 01/23/2023 1 1 Reason for Visit * Reason Comments Post-Hospital Follow-up Fatigue Patient states that she feels exhausted all the time her limbs feel heavy Loss of Consciousness Encounter Details Date Type Department Care Team (Late st Contact Info) Description 01/23/2023 1:45 PM CDT Office Visit [facility] - Primary Care - [place] [address] [place] [phone] Orin Bond APRN, CITLALLI [address] [place] [address] Palpitations (Primary Dx); Fatigue, unspecified type Discharge Disposition: Discharged to home or Selfcare [...] Reading Time Taken Comments Blood Pressure 114/70 01/23/2023 1:55 PM CDT Pulse 84 01/23/2023 1:55 PM CDT Temperature 36.8 ??C (98.3 ??F) 01/23/2023 1:55 PM CD T Respiratory Rate 20 01/23/2023 1:55 PM CDT Oxygen Saturation 100% 01/23/2023 1:55 PM CDT Inhaled Oxygen Concentration - - Weight 73 kg (161 lb) 01/23/2023 1:55 PM CDT Height 175.3 cm (5' 9 ) 01/23/2023 1:55 PM CDT Body Mass Index 23.78 01/23/2023 1:55 PM CDT documented in this encounter Patient Instructions * Patient Instructions* Orin Bond APRN, CNP - 01/23/2023 1:45 PM CDT If any new or worsening symptoms occur, please call office. documented in this encounter Progress Notes * Lilian Fleming CMA - 01/23/2023 1:45 PM CDT Yomaira Ford, 32 y.o., female is here for Post-Hospital Follow-up, Fatigue (Patient states that she feels exhausted all the time her limbs feel heavy ), and Loss of Consciousness Medication Refills: Patient reports/denies need for medication refills. Orders Pended: no Requested Prescriptions No prescriptions requested or ordered in this encounter Home Medications Medication Sig Start Date End Date Taking? Authorizing Provider amoxicillin-clavulanate (AUGMENTIN) 875-125 MG Tablet Take 1 Tablet by mouth every 12 hours. 01/16/23 01/26/23 Yes ProviderFelipe MD meclizine (ANTIVERT) 25 MG Tablet Take 1 Tablet by mouth 3 times daily as needed for Dizziness. 01/22/23 Yes Pato Mcneil PAC Multiple Vitamins-Minerals (MULTIPLE VITAMINS/WOMENS PO) Take by mouth. Yes ProviderFelipe MD propranolol (INDERAL) 10 MG Tablet Take 1 Tablet by mouth 3 times daily. As needed for anxiety 12/09/22 Yes Orin Bond APRN, CNP There are no discontinued medications. I have [...] N/A * Orin Bond APRN, CNP - 01/23/2023 1:45 PM CDT [facility] - [address] [id number] Dept: [phone] Dept Loc: [phone] Loc Patient: Yomaira Ford : 1990 Sex: female Subjective: HPI: Yomaira Ford presents for Post-Hospital Follow-up, Fatigue (Patient states that she feels exhausted all the time her limbs feel heavy ), and Loss of Consciousness Reports symptoms onset 01/06, same day she started her period. Reports typical menstrual symptoms butfeels she just got worse and is not improving. Feels like irregular heart beat, weak, fatigued all the time. Not sleeping good at night. States laying on her back and left side gives her palpitations and wakes her up. She is on augmentin and having some upset stomach 2/2 to it. ROS Fourteen point review of systems negative except as documented in HPI. Objective: Vitals: 01/23/23 1355 BP: 114/70 Pulse: 84 Resp: 20 Temp: 98.3 ??F (36.8 ??C) SpO2: 100% Weight: 161 lb (73 kg) Height: 5' 9 (1.753 m) LMP 08/07/2020 (Approximate) Body mass index is 23.78 kg/m??. Physical Exam Vitals and nursing note [...] Diagnoses and all orders for this visit: Palpitations - HOLTER MONITOR RECORDING ONLY-48 HOUR; Future - ADULT TRANS THORACIC ECHO 2D COMPLETE; Future Fatigue, unspecified type - HOLTER MONITOR RECORDING ONLY-48 HOUR; Future - ADULT TRANS THORACIC ECHO 2D COMPLETE; Future - URINALYSIS REFLEX IF INDICATED BY ABNORMAL RESULTS; Future Other orders - amoxicillin-clavulanate (AUGMENTIN) 875-125 MG Tablet; Take 1 Tablet by mouth every 12 hours. Labs from ED were unremarkable, both visits. Order Holter monitor and echocardiogram. Will also order urinalysis as that was never done in the ED. 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 She reports that her sister had a head cold and within 24 hours she due to myocarditis. She did not have any additional information. Follow-up Information Return if symptoms worsen or fail to improve. LOS Today OFFICE/OP EST LVL 4 MOD MDM/30-39 MIN documented in this encounter Plan of Treatment Not on file documented as of this encounter Results * HOLTER MONITOR RECORDING ONLY-48 HOUR (01/31/2023 9:40 AM CDT) Anatomical Region Laterality Modality CARDIO N/A Ultrasound Narrative 01/31/2023 8:00 AM CDT Carla Rae MD ? 02/12/2023 ??5:05 PM Event Monitor Holter date: 01/31/2023 Indication: 1. Palpitations ??ADULT TRANS THORACIC ECHO 2D COMPLETE ADULT TRANS THORACIC ECHO 2D COMPLETE HOLTER MONITOR RECORDING ONLY-48 HOUR HOLTER MONITOR RECORDING ONLY-48 HOUR 2. Fatigue, unspecified type ??ADULT TRANS THORACIC ECHO 2D COMPLETE ADULT TRANS THORACIC ECHO 2D COMPLETE HOLTER MONITOR RECORDING ONLY-48 HOUR HOLTER MONITOR RECORDING ONLY-48 HOUR 1. ??The predominate rhythm is sinus with sinus tachycardia detected 8.3% . ??The average heart rate was 77 beats per minute, the minimum was 58 beats per minute and maximum was 135 beats per minute. 2. ??There were no significant pauses. 3. ??The atrioventricular conduction was intact. 4. ??There were Isolated ventricular ectopic beats noted with a burden of <0.01%. 5. ??The diary was returned with 2 events. The patient reported fainting on day 1 at 11:45 and that did not correspond to any significant arrhythmia.. Final impression: Normal sinus rhythm with no significant sustained arrhythmia.The diary was returned with 2 events. The patient reported fainting and that did not correspond to any significant arrhythmia.. . Signed: ??Carla Rae MD, 02/12/2023, 5:00 PM CDT Procedure Note Carla Rae MD - 01/31/2023 8:00 AM CDT Event Monitor Holter date: 01/31/2023 Indication: 1. Palpitations ADULT TRANS THORACIC ECHO 2D COMPLETE ADULT TRANS THORACIC ECHO 2D COMPLETE HOLTER MONITOR RECORDING ONLY-48 HOUR HOLTER MONITOR RECORDING ONLY-48 HOUR 2. Fatigue, unspecified type ADULT TRANS THORACIC ECHO 2D COMPLETE ADULT TRANS THORACIC ECHO 2D COMPLETE HOLTER MONITOR RECORDING ONLY-48 HOUR HOLTER MONITOR RECORDING ONLY-48 HOUR 1. The predominate rhythm is sinus with sinus tachycardia detected 8.3% .The average heart rate was 77 beats per minute, the minimum was 58 beatsper minute and maximum was 135 beats per minute. 2. There were no significant pauses. 3. The atrioventricular conduction was intact. 4. There were Isolated ventricular ectopic beats noted with a burden of<0.01%. 5. The diary was returned with 2 events. The patient reported fainting onday 1 at 11:45 and that did not correspond to any significantarrhythmia.. Final impression: Normal sinus rhythm with no significant sustained arrhythmia.The diary wasreturned with 2 events. The patient reported fainting and that did notcorrespond to any significant arrhythmia.. . Signed: Carla Rae MD, 02/12/2023, 5:00 PM CDT Orin Bond APRN, CNP IMSelin ECG ORDERAB LES Final Result * ADULT TRANS THORACIC ECHO 2D COMPLETE (01/31/2023 8:48 AM CDT) AV Peak Grad mmHg 7.84 mmHg RESULTING AGENCY Mean Aortic Valve Gradient (MAVG) 4 mmHg RESULTING AGENCY LV end ammy diam cm 5.68 cm RESULTING AGENCY LV end sys diam cm 3.42 cm RESULTING AGENCY Aortic Root Diam cm 3.3 cm RESULTING AGENCY LA vol index ml/m2 33 ml/m2 RESULTING AGENCY LVOT Peak Kirby m/sec 0.998 m/sec RESULTING AGENCY AV Peak Kirby m/sec 1.4 m/sec RESULTING AGENCY MVA by PHT cm2 3.73 cm2 RESUL TING AGENCY E/A Ratio 1.75 RESULTING AGENCY TR Kirby m/sec 2.28 m/sec RESULTI NG AGENCY E/E' 5.6 RESULTING AGENCY AV Area (VTI) cm2 2.17 cm2 RESULTING AGENCY SEPTUM DIASTOLIC CM 0.81 cm RESULTING AGENCY PW DIASTOLIC CM 0.69 cm RESU LTING AGENCY LA VOLUME 62.6 ml RESULTING AGENCY LV EF(estimated)% 55 RESULTING AGENCY Anatomical Region Laterality Modality CARDIO N/A Ultrasound Narrative 01/31/2023 12:54 PM CDT Transthoracic Echocardiography Report (TTE) Patient name ? EVITA RICHEY R ? 1990 Patient ID (I) ? [id number] ? Study Date01/31/2023 Technical quality: Good visualization Type of Study: TTE procedure: Adult Trans Thoracic Echo 2D Complete. Priority:RoutineHR: 80 bpmBP: 109/74 mmHg Conclusions Summary LV systolic function is preserved. Ejection fraction is estimated at 55% Findings Mitral Valve The mitral valve is Structurally normal Aortic Valve Aortic valve is tricuspid. Leaflet mobility is preserved. No significant aortic stenosis or regurgitation is evident Tricuspid Valve Tricuspid valve is structurally normal Pulmonic Valve Pulmonic valve is not well visualized. Left Atrium Left atrium appears to be Of normal size Left Ventricle LV systolic function is preserved. Ejection fraction is estimated at 55% Right Atrium Right atrium appears to be of normal size Right Ventricle Right ventricle appears to be of normal size and function Pericardial Effusion No evidence of pericardial effusion. Pleural Effusion . Miscellaneous Color and spectral Doppler imaging was used for evaluation. Images are Of good quality Valves Mitral Valve Area (PHT): 3.73 cm^2 Peak E-Wave: 0.99 m/s ?Deceleration Time: 211 msec Peak A-Wave: 0.56 m/s Peak Gradient: 3.92 mmHg P1/2t: 59 msec Tissue Doppler E' Velocity: 0.11 m/s ?E/E':5.6 A' Velocity: 0.07 m/s ?E/Lat E': 5.6 E/A Ratio: 1.75 ?E/Med E':8.8 Aortic Valve Area (continuity): 2.17 cm^2 ? Mean Velocity: 0.91 m/s Area (VTI):2.37 cm^2 ? Mean Gradient: 4 mmHg Peak Velocity: 1.40 m/s ?AV VTI: 28.3 cm Peak Gradient: 7.84 mmHg Cusp Separation: 2.1 cm Tricuspid Valve Peak E-Wave: 0.8 m/s Peak Gradient: 2.56 mmHg TR Velocity: 2.28 m/s TR Gradient: 20.79 mmHg Pulmonic Valve Peak Velocity: 0.85 m/s Peak Gradient: 2.94 mmHg LVOT Peak Velocity: 0.99 m/s ? Mean Velocity: 0.58 m/s Peak Gradient: 4 mmHg ? Mean Gradient: 2 mmHg LVOT Diameter: 2.1 cm ? LVOT VTI: 19.4 cm Stroke Volume: 67 ml ?Stroke Volume Index: 35.64 ml/m^2 Structures Left Ventricle Diastolic Dimension: 5.68 cm ? Systolic Dimension: 3.42 cm Septum Diastolic: 0.81 cm ?Septum Systolic: 0.92 cm PW Diastolic: 0.69 cm ?PW Systolic: 1.27 cm Diastolic Length: 35.1 cm ?Systolic Length: 18.1 cm EF Calculated: 67.79% ?CI: 2.86 l/min*m^2 CO: 5.37 l/min RWT: 0.24 ?LV EDV: 131 ml FS: 39.79 % ?LV EDV Index: 70 m^2 LV Length: 8.27 cm ? LV ESV: 42.2 ml LVOT Diameter: 2.1 cm ?LV ESV Index: 22 m^2 Left Atrium LA Dimension: 3.8 cm ?LA Area: 21.3 cm^2 LA/Aorta: 1.15 ?LA Volume: 62.6 ml LA Systolic Pressure: 8.99 mmHg ? LA Index: 33ml/m^2 Right Atrium ?RA Area: 13.6 cm^2 Great Vessels Aorta Demographics Age ?32 ? Gender ?Female Race ?Height ?69.02 in. ? Weight ?160.01 lbs. ? BMI (BSA) ? 23.62 kg/m^2 ? (1.88 m^2) Investment Advisor ?Johnson Booker Interpreting ? Melchor Moore ?Referring Physician ?Raj ?Physician Procedure Note Raj Díaz MD - 01/31/2023 Transthoracic Echocardiography Report (TTE) Patient name EVITA Booker 1990 Patient ID (UPI) [id number] Study Date01/31/2023 Technical quality: Good visualization Type of Study: TTE procedure: Adult Trans Thoracic Echo 2D Complete. Priority:RoutineHR: 80 bpmBP: 109/74 mmHg Conclusions Summary LV systolic function is preserved. Ejection fraction is estimated at 55% Findings Mitral Valve The mitral valve is Structurally normal Aortic Valve Aortic valve is tricuspid. Leaflet mobility is preserved. No significant aortic stenosis or regurgitation is evident Tricuspid Valve Tricuspid valve is structurally normal Pulmonic Valve Pulmonic valve is not well visualized. Left Atrium Left atrium appears to be Of normal size Left Ventricle LV systolic function is preserved. Ejection fraction is estimated at 55% Right Atrium Right atrium appears to be of normal size Right Ventricle Right ventricle appears to be of normal size and function Pericardial Effusion No evidence of pericardial effusion. Pleural Effusion . Miscellaneous Color and spectral Doppler imaging was used for evaluation. Images are Of good quality Valves Mitral Valve Area (PHT): 3.73 cm^2 Peak E-Wave: 0.99 m/s Deceleration Time: 211 msec Peak A-Wave: 0.56 m/s Peak Gradient: 3.92 mmHg P1/2t: 59 msec Tissue Doppler E' Velocity: 0.11 m/s E/E':5.6 A' Velocity: 0.07 m/s E/Lat E': 5.6 E/A Ratio: 1.75 E/Med E':8.8 Aortic Valve Area (continuity): 2.17 cm^2 Mean Velocity: 0.91 m/s Area (VTI):2.37 cm^2 Mean Gradient: 4 mmHg Peak Velocity: 1.40 m/s AV VTI: 28.3 cm Peak Gradient: 7.84 mmHg Cusp Separation: 2.1 cm Tricuspid Valve Peak E-Wave: 0.8 m/s Peak Gradient: 2.56 mmHg TR Velocity: 2.28 m/s TR Gradient: 20.79 mmHg Pulmonic Valve Peak Velocity: 0.85 m/s Peak Gradient: 2.94 mmHg LVOT Peak Velocity: 0.99 m/s Mean Velocity: 0.58 m/s Peak Gradient: 4 mmHg Mean Gradient: 2 mmHg LVOT Diameter: 2.1 cm LVOT VTI: 19.4 cm Stroke Volume: 67 ml Stroke Volume Index: 35.64 ml/m^2 Structures Left Ventricle Diastolic Dimension: 5.68 cm Systolic Dimension: 3.42 cm Septum Diastolic: 0.81 cm Septum Systolic: 0.92 cm PW Diastolic: 0.69 cm PW Systolic: 1.27 cm Diastolic Length: 35.1 cm Systolic Length: 18.1 cm EF Calculated: 67.79% CI: 2.86 l/min*m^2 CO: 5.37 l/min RWT: 0.24 LV EDV: 131 ml FS: 39.79 % LV EDV Index: 70 m^2 LV Length: 8.27 cm LV ESV: 42.2 ml LVOT Diameter: 2.1 cm LV ESV Index: 22 m^2 Left Atrium LA Dimension: 3.8 cm LA Area: 21.3 cm^2 LA/Aorta: 1.15 LA Volume: 62.6 ml LA Systolic Pressure: 8.99 mmHg LA Index: 33ml/m^2 Right Atrium RA Area: 13.6 cm^2 Great Vessels Aorta Demographics Age 32 Gender Female Race Height 69.02 in. Weight 160.01 lbs. BMI (BSA) 23.62 kg/m^2 (1.88 m^2) Investment Advisor Johnson Moore Referring Physician Raj Physician us Orin Bond APRN, CNP [facility] ECHO ORDERA BLES Edited Result - Final documented in this encounter Visit Diagnoses Diagnosis Palpitations- Primary Fatigue, unspecified type Palpitations Fatigue, unspecified type documented in this encounter Care Teams Healthcare Account Manager Relationship Specialty Start Date End Date Orin Bond APRN, CNP [address] [place] [address] PCP - General Advanced Practice Nurse 12/06/21 documented as of this encounter
--- OUTSIDE RECORDS SUMMARY | 2024-08-28 02:26 | XMS_ITS | Encounter Summary ---
Author Organization [facility] Care Team Providers Care Hand Violin Maker Name Role Phone Orin Bond APRN, CHOPPING MACHINE OPERATOR Primary Care P rovider Malia Field APRN, RECORD PRESS SUPERVISOR Unavailable [phone] Encounter Details Date Type Department Care Team (Latest Contact Info) Description 05/15/2023 Travel Social History Tobacco Use Types Packs/Day [...] suspected to have Coronavirus/COVID-19? No / Unsure 05/15/2023 10:08 AM CDT documented as of this encounter Plan of Treatment Not on file documented as of this encounter Visit Diagnoses Not on filedocumented in this encounter Additional Health Concerns Assessment Noted Time PHQ-9 Depression Total Score: 4 04/17/20 11:00 AM CDT documented as of this encounter Care Teams Hand Violin Maker Relationship Specialty Start Date End Date Orin Bond APRN, CHOPPING MACHINE OPERATOR [address] [place] [address] PCP - General Advanced Practice Nurse 12/06/21 Malia Field APRN, RECORD PRESS SUPERVISOR [address] [place] [address] Nurse Practitioner Advanced Practice Nurse 03/06/23 documented as of this encounter
--- OUTSIDE RECORDS SUMMARY | 2024-08-28 02:26 | XMS_ITS | Encounter Summary ---
Author Organization [facility] Address [address] [place] [address] Phone Care Team Providers Care Bending Machine Set Up Operator Name Role Phone Orin Bond APRN, CNP Primary Care P tomasa Reason for Visit * Reason Comments Dizziness Encounter Details Date Type Department Care Team (Late st Contact Info) Description 01/22/2023 2:27 PM CDT - 01/22/2023 6:44 PM CDT Emergency [facility] Emergency [address] [place] [id number] Pato Mcneil, PAC [address] [place] [address] Near syncope Discharge Disposition: Discharged to home or Selfcare [...] Sign Reading Time Taken Comments Blood Pressure 120/71 01/22/2023 6:08 PM CDT Pulse 69 01/22/2023 6:08 PM CDT Temperature 36.8 ??C (98.2 ??F) 01/22/2023 2:30 PM CD T Respiratory Rate 18 01/22/2023 6:00 PM CDT Oxygen Saturation 100% 01/22/2023 6:00 PM CDT Inhaled Oxygen Concentration - - Weight 72.6 kg (160 lb) 01/22/2023 2:30 PM CDT Height 175.3 cm (5' 9 ) 01/22/2023 2:30 PM CDT Body Mass Index 23.63 01/22/2023 2:30 PM CDT documented in this encounter Discharge Instructions * Attachments The following attachments cannot be sent through Care Everywhere. * Near-Syncope [id number] (Nauruan) documented in this encounter Medications at Time of Discharge Multiple Vitamins-Minerals (MULTIPLE VITAMINS/WOMENS PO) Take by mouth. amoxicillin-clavu lanate (AUGMENTIN) 875-125 MG Tablet Take 1 Tablet by mouth every 12 hours. 01/16/2023 01/26/2023 meclizine (ANTIVERT) 25 MG Tablet Take 1 Tablet by mouth 3 times daily as needed for Dizziness. 30 Tablet 01/22/2023 03/06/2023 propranolol (INDERAL) 10 MG TabletIndications :Situational anxiety Take 1 Tablet by mouth 3 times daily. As needed for anxiety 90 Tablet 3 12/09/2022 03/06/2023 documented as of this encounter ED Notes * Luci Sherman, RN - 01/22/2023 6:40 PM CDT Patient discharged. Discharge instructions and patient educational material reviewed with patient; questions and concerns addressed; patient verbalizes understanding, using teach back. Patient was given 1 prescriptions. Patient was informed no drinking alcohol, driving or operating heavy machinery while taking narcotics or muscle relaxants. Patient discharged per ambulatory mode with self as responsible green party. SL D/C'ed with Franc cath intact. * Tarun, Pato Padilla, PAC - 01/22/2023 4:46 PM CDT Chief Complaint Patient presents with ??? Dizziness Yomaira Ford is a 32 y.o. female who presents to the ED c/o lightheadedness/dizziness intermittently for 1 week. Patient states she had a syncopal episode last week and was seen at [facility] ED with unremarkable work up. Patient was treated for a sinus infection and currently on day 7 of augmentin. Patient has been having dizzy spells and hot flashes with generalized weakness frequently today prompting return to ED. Patient states her BP has been low today on home cuff. Patient has no pain complaint. No neuro changes reported. Normal bowel movements reported. VSS. No acute distress. History reviewed. No pertinent past medical history. No current facility-administered medications for this encounter. Current Outpatient Medications Medication Sig Dispense Refill ??? meclizine (ANTIVERT) 25 MG Tablet Take 1 Tablet by mouth 3 times daily as needed for Dizziness.30 Tablet 0 ??? Multiple Vitamins-Minerals (MULTIPLE VITAMINS/WOMENS PO) Take by mouth. ??? propranolol (INDERAL) 10 MG Tablet Take 1 Tablet by mouth 3 times daily. As needed for anxiety 90 Tablet 3 No Known Allergies History reviewed. No pertinent past medical history. Past Surgical History: Procedure Laterality Date ??? TONSILLECTOMY Social History Socioeconomic History ??? Marital status: Spouse name: Not on file ??? Number of children: Not on file ??? Years of education: Not on file ??? Highest education level: Not on file Occupational History ??? Not on file Tobacco Use ??? Smoking status: Never ??? Smokeless tobacco: Never Vaping Use ??? Vaping Use: Never used Substance and Sexual Activity ??? Alcohol use: No ??? Drug use: No ??? Sexual activity: Yes Partners: Male control/protection: Oral Contraceptive Other Topics Concern ??? Not on file Social History Narrative ??? Not on file BP 120/71 Pulse 69 Temp 98.2 ??F (36.8 ??C) (Tympanic) Resp 18 Ht 5' 9 (1.753 m) Wt 160 lb (72.6 kg) LMP 01/06/2023 (Exact Date) SpO2 100% BMI 23.63 kg/m?? Review of Systems Neurological: Positive for dizziness, weakness (generalized) and light-headedness. All other systems reviewed and are negative. Physical Exam Vitals and nursing note reviewed. Constitutional: General: She is not in acute distress. Appearance: She is well-developed. She is not diaphoretic. HENT: Head: Normocephalic and atraumatic. Eyes: Extraocular Movements: Extraocular movements intact. Pupils: Pupils are equal, round, and reactive to light. Neck: Thyroid: No thyromegaly. Cardiovascular: Rate and Rhythm: Normal rate and regular rhythm. Heart sounds: Normal heart sounds. No murmur heard. Pulmonary: Effort: Pulmonary effort is normal. No respiratory distress. Breath sounds: Normal breath sounds. No wheezing, rhonchi or rales. Chest: Chest wall: No tenderness. Abdominal: General: Bowel sounds are normal. There is no distension. Palpations: Abdomen is soft. Tenderness: There is no abdominal tenderness. Musculoskeletal: General: No tenderness. Normal range of motion. Cervical back: Normal range of motion and neck supple. Skin: General: Skin is warm and dry. Coloration: Skin is not pale. Findings: No erythema or rash. Neurological: Mental Status: She is alert and oriented to person, place, and time. GCS: GCS eye subscore is 4. GCS verbal subscore is 5. GCS motor subscore is 6. Cranial Nerves: No cranial nerve deficit, dysarthria or facial asymmetry. Sensory: Sensation is intact. No sensory deficit. Motor: Motor function is intact. Coordination: Coordination is intact. Gait: Gait is intact. Psychiatric: Behavior: Behavior normal. D-Dimer Final Result Complete Blood Count (CBC) WITH Diff Final Result Troponin I (Trp I) Final Result CMP (Comprehensive Metabolic Panel) Final Result Thyroid Stimulating Hormone (TSH) [id number] Final Result BNP (NT proBNP) Final Result EKG 12 LEAD (Results Pending) URINALYSIS REFLEX IF INDICATED BY ABNORMAL RESULTS (Results Pending) ECG Report Procedures Imaging Results None Labs Reviewed CMP (COMPREHENSIVE METABOLIC PANEL) - Abnormal; Notable for the following components: Result Value CREATININE, BLOOD 0.59 (*) All other components within normal limits CBC WITH AUTO DIFFERENTIAL - Abnormal; Notable for the following components: RDW 11.7 (*) All other components within normal limits THYROID STIMULATING HORMONE (TSH) - Normal TROPONIN I (TRP I) - Normal N-TERMINAL- PRO B TYPE NATRIURETIC PEPTIDE - Normal D-DIMER - Normal Narrative: The FDA has approved this method to exclude the diagnosis of DVT and/or PE at the cutoff value of <0.50 mcg/mL FEU. POCT GLUCOSE - Normal COMPLETE BLOOD COUNT (CBC) WITH DIFF Narrative: The following orders were created for panel order Complete Blood Count (CBC) WITH Diff. Procedure Abnormality Status --------- ------ CBC with Auto Differential[[id number]] Abnormal Final result Please view results for these tests on the individual orders. URINALYSIS REFLEX IF INDICATED BY ABNORMAL RESULTS POCT URINE HCG () Medical Decision Making See HPI. Cardiac work up was unremarkable today. Orthostatic VS also normal. No abnormality to explain patient's sxs. Discussed admission v outpatient follow up with scheduled PCP appt tomorrow. Patient has declined admission today. Meclizine started today. Return to ED for worsening sxs. PCP follow up tomorrow as scheduled. Amount and/or Complexity of Data Reviewed Labs: ordered. ECG/medicine tests: ordered and independent interpretation performed. Details: Time:1433 Rhythm: sinus Rate: 66 Interpretation: normal axis, normal intervals with good R wave progression, no acute ST changes or elevations. Clinical Impression 1. Near syncope Disposition: Discharged The patient remained stable throughout their ED stay. My clinical impression was discussed with thepatient/family. Labs and radiology results were reviewed with them. I gave them the opportunity to ask questions, and addressed them as completely as possible given the information available at present. The therapeutic plan was discussed, advised to take medications as instructed, instructions weregiven and the importance of primary care follow up was stressed and encouraged. The patient/family voiced understanding of the plan, indications to return, and the need for follow up. Cosigned by Dangelo Garza MD at 01/23/2023 1:58 AM CDT * Anna Marie Suárez RN - 01/22/2023 2:22 PM CDT Patient to triage via wheelchair with c/o lightheadedness. Patient reports she passed out last weekand was evaluated at [facility] with a negative workup, but has felt dizzy, weak and lightheaded since. States her BP has been low and her HR has been in the low 60s. VSS in triage. documented in this encounter Plan of Treatment Not on file documented as of this encounter Procedures Procedure Name Priority Date/Time Associated Diagnosis Comments D-DIMER STAT 01/22/2023 5:22 PM CDT CBC WITH AUTO DIFFERENTIAL STAT 01/22/2023 3:10 PM CDT TROPONIN I (TRP I) STAT 01/22/2023 3: 10 PM CDT COMPLETE BLOOD COUNT (CBC) WITH DIFF STAT 01/22/2023 3:10 PM CDT N-TERMINAL- PRO B TYPE NATRIURETIC PEPTIDE STAT 01/22/2023 3:09 PM CDT THYROID STIMULATING HORMONE (TSH) STAT 01/22/2023 3:09 PM CDT CMP (COMPREHENSIVE METABOLIC PANEL) STAT 01/22/2023 3:09 PM CDT POCT GLUCOSE STAT 01/22/2023 2:39 PM CDT EKG 12 LEAD STAT 01/22/2023 2:33 PM CDT documented in this encounter Results * D-Dimer (01/22/2023 5:22 PM CDT) D DIMER <=0.27 <0.50 mcg/mL FEU 01/22/2023 5:40 PM CDT [facility] Blood Venipuncture / Unknown 01/22/2023 5:22 PM CDT 01/22/2023 5:22 PM CDT Narrative [facility] - 01/22/2023 5:40 PM CDT The FDA has approved this method to exclude the diagnosis of DVT and/or PE at the cutoff value of <0.50 mcg/mL FEU. Pato Mcneil PAC HEMATOLOGY ORDERABLE S Final Result Performing Organization Address City/[facility]/ZIP Co de Phone Number [facility] [address] [place] [address] * Troponin I (Trp I) (01/22/2023 3:10 PM CDT) Pathologist [facility] TROPONIN I <0.300 <=0.300 ng/mL 01/22/2023 5:45 PM CDT [facility] Blood Venipuncture / Unknown 01/22/2023 3:10 PM CDT 01/22/2023 3:10 PM CDT Pato Mcneil PAC CHEMISTRY ORDERABLES Final Result Performing Organization Address [facility] Co de Phone Number [facility] [address] [place] [address] * (ABNORMAL) CBC with Auto Differential (01/22/2023 3:10 PM CDT) Pathologist [facility] WBC 8.02 4.00 - 12.00 10(3)/mcL 01/22/2023 3:16 PM CDT [facility] RBC 3.95 3.80 - 5.30 10(6)/mcL 01/22/2023 3:16 PM CDT [facility] HEMOGLOBIN (HGB) 12.5 12.0 - 15.8 g/dL 01/22/2023 3:16 PM CDT [facility] HEMATOCRIT (HCT) 36.9 36.0 - 47.0 % 01/22/2023 3:16 PM CDT [facility] MCV 93.4 82.0 - 96.0 fL 01/22/2023 3:16 PM CDT [facility] MCH 31.6 26.0 - 34.0 pg 01/22/2023 3:16 PM CDT [facility] MCHC 33.9 31.0 - 36.0 g/dL 01/22/2023 3:16 PM CDT [facility] PLATELET COUNT 250 140 - 440 10(3)/mcL 01/22/2023 3:16 PM CDT [facility] RDW 11.7(L) 11.8 - 15.5 % 01/22/2023 3:16 PM CDT [facility] MPV 9.9 9.7 - 12.4 fL 01/22/2023 3:16 PM CDT [facility] NEUTROPHILS 69.8 47.0 - 73.0 % 01/22/2023 3:16 PM CDT [facility] LYMPHOCYTES 22.7 18.0 - 42.0 % 01/22/2023 3:16 PM CDT [facility] MONOCYTES 6.4 4.0 - 12.0 % 01/22/2023 3:16 PM CDT [facility] EOSINOPHILS 0.7 0.0 - 5.0 % 01/22/2023 3:16 PM CDT [facility] BASOPHILS 0.4 0.0 - 1.0 % 01/22/2023 3:16 PM CDT [facility] ABSOLUTE NEUTROPHILS 5.60 1.60 - 7.70 10(3)/mcL 01/22/2023 3:16 PM CDT [facility] ABSOLUTE LYMPHOCYTES 1.82 1.30 - 3.20 10(3)/mcL 01/22/2023 3:16 PM CDT [facility] ABSOLUTE MONOCYTES 0.51 0.20 - 1.00 10(3)/mcL 01/22/2023 3:16 PM CDT [facility] ABSOLUTE EOSINOPHIL 0.06 0.00 - 0.40 10(3)/mcL 01/22/2023 3:16 PM CDT [facility] ABSOLUTE BASOPHILS 0.03 0.00 - 0.10 10(3)/mcL 01/22/2023 3:16 PM CDT [facility] NRBC PER 100 WBC 0 01/23/20 3:16 PM CDT [facility] Blood Venipuncture / Unknown 01/22/2023 3:10 PM CDT 01/22/2023 3:10 PM CDT us Dangelo Garza MD HEMATOLOGY ORDERABLES Final Res ult [facility] [address] [place] [address] * BNP (NT proBNP) (01/22/2023 3:09 PM CDT) NT PROBNP <=36.0 36.0 - 125.0 pg/mL 01/22/2023 6:11 PM CDT [facility] Comment:NT-proBNP values < 3 00 pg/mL have a 99% negative predictive value for excluding acute congestive heart failure (CHF) in all age groups. In the absence of renal failure, CHF is suggested in adults < 50 years of age with a NT-pro BNP > 450 pg/mL; in adults 50-75 years of age with a NT-proBNP > 900 pg/mL; and in adults > 75 years of age with a NT-proBNP > 1800 pg/mL. For patients with an e-GFR < 60 a NT-proBNP > 1200 pg/mL yields a diagnostic sensitivity and specificity of 89% and 72% for acute CHF. ([facility] data) Blood Venipuncture / Unknown 01/22/2023 3:09 PM CDT 01/22/2023 3:10 PM CDT us Pato Mcneil PAC CHEMISTRY ORDERABLES Final Result [facility] [address] [place] [address] * Thyroid Stimulating Hormone (TSH) [id number] (01/22/2023 3:09 PM CDT) Pathologist [facility] TSH 0.510 0.270 - 4.200 mIU/L 01/22/2023 5:18 PM CDT [facility] Blood Venipuncture / Unknown 01/22/2023 3:09 PM CDT 01/22/2023 3:10 PM CDT us Pato Padilla Mcneil PAC CHEMISTRY ORDERABLES Final Result [facility] [address] [place] [address] * (ABNORMAL) CMP (Comprehensive Metabolic Panel) (01/22/2023 3:09 PM CDT) Pathologist [facility] SODIUM 141 136 - 144 mmol/L 01/22/2023 3:48 PM CDT [facility] POTASSIUM 3.5 3.5 - 5.1 mmol/L 01/22/2023 3:48 PM CDT [facility] CHLORIDE 106 100 - 110 mmol/L 01/22/2023 3:48 PM CDT [facility] CO2, VENOUS 24 22 - 32 mmol/L 01/22/2023 3:48 PM CDT [facility] ANION GAP 14.5 8.0 - 20.0 mmol/L 01/22/2023 3:48 PM CDT [facility] GLUCOSE 98 70 - 99 mg/dL 01/22/2023 3:48 PM CDT [facility] BUN 11 6 - 20 mg/dL 01/22/2023 3:48 PM CDT [facility] CREATININE, BLOOD 0.59(L) 0.60 - 1.10 mg/dL 01/22/2023 3:48 PM CDT [facility] BUN/CREATININE RATIO 19 12 - 20 ratio 01/22/2023 3:48 PM CDT [facility] TOTAL PROTEIN 7.3 6.0 - 8.3 g/dL 01/22/2023 3:48 PM CDT [facility] ALBUMIN 4.5 3.5 - 5.2 g/dL 01/22/2023 3:48 PM CDT [facility] Comment: The colormetric methods used for the determination of Albumin may lead to falsely elevated test results in patients suffering from renal failure or insufficiency due to interference with other proteins. A/G RATIO 1.6 1.0 - 2.0 01/22/2023 3:48 PM CDT [facility] CALCIUM 9.2 8.9 - 10.3 mg/dL 01/22/2023 3:48 PM CDT [facility] T BILI 0.5 <=1.2 mg/dL 01/22/2023 3:48 PM CDT [facility] SGOT (AST) 13 <=32 U/L 01/22/2023 3:48 PM CDT [facility] SGPT (ALT) 10 <=41 U/L 01/22/2023 3:48 PM CDT [facility] ALKALINE PHOSPHATASE 46 35 - 105 U/L 01/22/2023 3:48 PM CDT [facility] GFR, ESTIMATED >60 >=60 01/22/2023 3:48 PM CDT [facility] Comment: Creatinine Clearance is the preferred criteria for selecting drug dose adjustments in renally impaired patients. ??The GFR is provided as additional pertinent clinical information. GFR is reported in mL/min/1.73 sq m. Calculation based on the Chronic Kidney Disease Epidemiology Collaboration (CKD- EPI) equation refit without adjustment for race. GFR, EST. >60 >=60 023 3:48 PM CDT [facility] GFR, EST. NONAFRICAN >60 >=60 01/22/2023 3:48 PM CDT [facility] Blood Venipuncture / Unknown 01/22/2023 3:09 PM CDT 01/22/2023 3:10 PM CDT us Dangelo Garza MD CHEMISTRY ORDERABLES Final Resu lt Performing Organization Address [facility] Co de Phone Number [facility] [address] [place] [address] * POCT Glucose (01/22/2023 2:39 PM CDT) GLUCOSE,BEDSIDE POCT 83 70 - 99 mg/dL 01/22/2023 2:45 PM CDT [facility] Blood 01/22/2023 2:39 PM CDT 01/22/2023 2:45 PM CDT us None Provider POINT OF CARE TESTING Final Resu lt Performing Organization Address [facility] de Phone Number [facility] [address] [place] [address] * EKG 12 LEAD (01/22/2023 2:33 PM CDT) Ventricular Rate 66 BPM EXTERNAL EKG Atrial Rate 66 BPM EXTERNAL EKG P-R Interval 168 ms EXTERNAL EKG QRS Duration 88 ms EXTERNAL EKG Q-T Duration 408 ms EXTERNAL EKG QTC CALCULATION 427 ms EXTERNAL EKG P [place] 73 degrees EXTERNAL EKG R [place] 75 degrees EXTERNAL EKG T [place] 54 degrees EXTERNAL EKG 01/22/2023 2:33 PM CDT Impressions EXTERNAL EKG - 01/29/2023 7:56 AM CDT Normal sinus rhythm Normal ECG No previous ECGs available Confirmed by Raj Moore ([id number]) on 01/29/2023 7:55:59 AM Narrative Procedure Note Raj Díaz MD - 01/29/2023 IMPRESSION: Normal sinus rhythm Normal ECG No previous ECGs available Confirmed by Raj Moore ([id number]) on 01/29/2023 7:55:59 AM us Dangelo Garza MD IMG ECG ORDERABLES Final Result EXTERNAL EKG documented in this encounter Visit Diagnoses Diagnosis Near syncope- Primary Syncope and collapse documented in this encounter Administered Medications Inactive Administered Medications - up to 3 most recent administrations Medication Order MAR Action Action Date Dose Rate Site 0.9 % sodium chloride solution at 999 mL/hr, Intravenous, ONCE, 1 dose, On Fri01/22/23 at 1730 New Bag 01/22/2023 5:02 PM CDT 999 mL/hr documented in this encounter Active and Recently Administered Medications Times are shown in CDT. Scheduled Medication Order 01/20/2023 01/21/2023 01/22/2023 0.9 % sodium chloride solution (COMPLETED) at 999 mL/hr, Intravenous, ONCE, 1 dose, On Fri01/22/23 at 1730 1702 (New Bag - Prov ider: Luci Sherman RN) documented in this encounter Care Teams Bending Machine Set Up Operator Relationship Specialty Start Date End Date Orin Bond APRN, BEARINGIZER [address] [place] [address] PCP - General Advanced Practice Nurse 12/06/21 documented as of this encounter
--- OUTSIDE RECORDS SUMMARY | 2024-08-28 02:26 | XMS_ITS | Encounter Summary ---
Author Organization [facility] Address [address] [facility] [place] [address] Phone Care Team Providers Care Housing Management Officer Name Role Phone Orin Bodn APRN, CATEGORY DEVELOPMENT ANALYST Primary Care P rovider Malia Field APRN, LEVELING MACHINE OPERATOR Unavailable [phone] Encounter Details Date Type Department Care Team (Late st Contact Info) Description 05/15/2023 Telephone [facility] - Neurology - [place] [address] [place] [address] Malia Field APRN, LEVELING MACHINE OPERATOR [address] [place] [address] Social History Tobacco Use Types Packs/Day Years [...] encounter Miscellaneous Notes * Telephone Encounter - Isaura Lewis RN - 05/15/2023 11:09 AM CDT Pre mri documented in this encounter Plan of Treatment Not on file documented as of this encounter Visit Diagnoses Not on filedocumented in this encounter Additional Health Concerns Assessment Noted Time PHQ-9 Depression Total Score: 4 04/17/20 11:00 AM CDT documented as of this encounter Care Teams Housing Management Officer Relationship Specialty Start Date End Date Orin Bond APRN, CATEGORY DEVELOPMENT ANALYST [address] [place] [address] PCP - General Advanced Practice Nurse 12/06/21 Malia Field APRN, LEVELING MACHINE OPERATOR [address] [place] [address] Nurse Practitioner Advanced Practice Nurse 03/06/23 documented as of this encounter
--- OUTSIDE RECORDS SUMMARY | 2024-08-28 02:26 | XMS_ITS | Encounter Summary ---
Author Organization [facility] Address [address] [facility] [place] [address] Phone Care Team Providers Care Developmental Electronics Assembler Name Role Phone Orin Bond APRN, CNP Primary Care P tomasa Encounter Details Date Type Department Care Team (Late st Contact Info) Description 01/10/2022 1:40 PM CDT Lab [facility] - Primary Care - [address] [address] Lab, [facility] Palpitations Discharge Disposition: Discharged to home or [...] as of this encounter Progress Notes * Anna Marie Cuevas RMA - 01/10/2022 1:40 PM CDT Yomaira presents for lab draw per order of Orin Bond APN, CNP dated 01/10/22. Specimen collected from right antecubital without incident. quest documented in this encounter Plan of Treatment Not on file documented as of this encounter Visit Diagnoses Diagnosis Palpitations documented in this encounter Care Teams Developmental Electronics Assembler Relationship Specialty Start Date End Date Orin Bond APRN, CNP [address] [place] [address] PCP - General Advanced Practice Nurse 12/06/21 documented as of this encounter
--- OUTSIDE RECORDS SUMMARY | 2024-08-28 02:26 | XMS_ITS | Encounter Summary ---
Author Organization [email or web address] Care Team Providers Care Electrical Engineering Director Name Role Phone Orin Bond APRN, CNP Primary Care P [facility] Encounter Details Date Type Department Care Team (Latest Contact Info) Description 12/13/2021 Travel Social History Tobacco Use Types Packs/Day [...] on filedocumented in this encounter Care Teams Electrical Engineering Director Relationship Specialty Start Date End Date Orin Bond APRN, CNP [address] [place] [address] PCP - General Advanced Practice Nurse 12/06/21 documented as of this encounter
--- OUTSIDE RECORDS SUMMARY | 2024-08-28 02:26 | XMS_ITS | Encounter Summary ---
Author Organization [employer] Care Team Providers Care Automatic Grinder Operator Name Role Phone Orin Bond APRN, CNP Primary Care P [facility] Encounter Details Date Type Department Care Team (Latest Contact Info) Description 12/06/2021 Travel Social History Tobacco Use Types Packs/Day [...] suspected to have Coronavirus/COVID-19? No / Unsure 12/06/2021 10:24 AM CDT documented as of this encounter Plan of Treatment Not on file documented as of this encounter Visit Diagnoses Not on filedocumented in this encounter Care Teams Automatic Grinder Operator Relationship Specialty Start Date End Date Orin Bond APRN, CNP [address] [place] [address] PCP - General Advanced Practice Nurse 12/06/21 documented as of this encounter
--- OUTSIDE RECORDS SUMMARY | 2024-08-28 02:26 | XMS_ITS | Encounter Summary ---
Author Organization [facility] Address [address] [place] [address] Phone Care Team Providers Care Proposal Coordinator Name Role Phone Orin Bond APRN, CNP Primary Care P [facility] Reason for Referral * Radiology Services (Routine) - Closed Specialty Diagnoses / Procedures Referred By Contac t Referred To Contact Radiology Diagnoses Palpitations Fatigue, unspecified type Procedures HOLTER MONITOR RECORDING ONLY-48 HOUR Orin Bond APRN, CNP [address] [place] [address] Phone: tel: fax: Referral ID Status Reason Start Date Expiration Date Visits Re quested Visits Authorized [id number] Closed 01/23/2023 1 1 * Radiology Services (Routine) - Closed Specialty Diagnoses / Procedures Referred By Contac t Referred To Contact Radiology Diagnoses Palpitations Fatigue, unspecified type Procedures ADULT TRANS THORACIC ECHO 2D COMPLETE Orin Bond APRN, CNP [address] [place] [address] Phone: tel: fax: Referral ID Status Reason Start Date Expiration Date Visits Re quested Visits Authorized [id number] Closed 01/23/2023 1 1 Reason for Visit * Radiology Services (Routine) - Closed Specialty Diagnoses / Procedures Referred By Charlene chan Referred To Contact Radiology Diagnoses Palpitations Fatigue, unspecified type Procedures ADULT TRANS THORACIC ECHO 2D COMPLETE Orin Bond APRN, CNP [address] [place] [address] Phone: tel: fax: Referral ID Status Reason Start Date Expiration Date Visits Re quested Visits Authorized [id number] Closed 01/23/2023 1 1 Encounter Details Date Type Department Care Team (Latest Contact Info) Description 01/31/2023 7:58 AM CDT - 01/31/2023 11:59 PM CDT Hospital Encounter [facility] Cardiology Services [address] [place] [address] Orin Bond APRN, CNP [address] [place] [address] Discharge Disposition: Discharged to home or Selfcare [...] Vitamins-Minerals (MULTIPLE VITAMINS/WOMENS PO) Take by mouth. meclizine (ANTIVERT) 25 MG Tablet Take 1 Tablet by mouth 3 times daily as needed for Dizziness. 30 Tablet 01/22/2023 03/06/2023 propranolol (INDERAL) 10 MG TabletIndications :Situational anxiety Take 1 Tablet by mouth 3 times daily. As needed for anxiety 90 Tablet 3 12/09/2022 03/06/2023 documented as of this encounter Procedure Notes * Carla Rae MD - 01/31/2023 8:00 AM CDTAssociated Order(s): HOLTER MONITOR RECORDING ONLY-48 HOUR Event Monitor Holter date: 01/31/2023 Indication: 1. [...] sinus with sinus tachycardia detected 8.3% . The average heart rate was 77 beats per minute, the minimum was 58 beats per minute and maximum was 135 beats per minute. 2. There were no significant pauses. 3. The atrioventricular conduction was intact. 4. There were Isolated ventricular ectopic beats noted with a burden of <0.01%. 5. The diary was returned with 2 events. The patient reported fainting on day 1 at 11:45 and that did not correspond to any significant arrhythmia.. Final impression: Normal sinus rhythm with no significant sustained arrhythmia.The diary was returned with 2 events. The patient reported fainting and that did not correspond to any significant arrhythmia.. . Signed: Carla Rae MD, 02/12/2023, 5:00 PM CDT documented in this encounter Plan of Treatment Not on file documented as of this encounter Procedures Procedure Name Priority Date/Time Associated Diagnosis Comments HOLTER MONITOR RECORDING ONLY-48 HOUR Routine 01/31/2023 9:40 AM CDT Palpitations Fatigue, unspecified type ADULT TRANS THORACIC ECHO 2D COMPLETE Routine 01/31/2023 8:48 AM CDT Palpitations Fatigue, unspecified type documented in this encounter Results * HOLTER MONITOR RECORDING [...] 5:00 PM CDT Orin Bond APRN, CNP IMG ECG ORDERAB LES Final Result * ADULT [...] Transthoracic Echocardiography Report (TTE) Patient name ? LOGAN Booker ? 1990 Patient ID (UPI) ? [id number] ? Study Date01/31/2023 Technical quality: Good visualization [...] (BSA) ? 23.62 kg/m^2 ? (1.88 m^2) Product Tester Fiberglass ?Johnson Booker Interpreting ? Melchor Moore ?Referring Physician ?Raj ?Physician Procedure Note Raj Díaz MD - 01/31/2023 Transthoracic Echocardiography Report (TTE) Patient name LOGAN RICHEY Jhony Urban 1990 Patient ID (UPI) [id number] Study Date01/31/2023 Technical quality: Good visualization Type [...] lbs. BMI (BSA) 23.62 kg/m^2 (1.88 m^2) Product Tester Fiberglass Johnson Moore Referring Physician Raj Physician us Orin Bond APRN, CNP IMG ECHO ORDERA BLES Edited Result - Final documented in this encounter Visit Diagnoses Diagnosis Palpitations Fatigue, unspecified type documented in this encounter Care Teams Proposal Coordinator Relationship Specialty Start Date End Date Orin Bond APRN, CNP [address] [place] [address] PCP - General Advanced Practice Nurse 12/06/21 documented as of this encounter
--- OUTSIDE RECORDS SUMMARY | 2024-08-28 02:26 | XMS_ITS | Encounter Summary ---
Author Organization [employer] Care Team Providers Care Handkerchief Sample Clerk Name Role Phone Orin Bond APRN, CNP Primary Care P rovider Encounter Details Date Type Department Care Team (Latest Contact Info) Description 01/31/2023 Travel Social History Tobacco Use Types Packs/Day [...] on filedocumented in this encounter Care Teams Handkerchief Sample Clerk Relationship Specialty Start Date End Date Orin Bond APRN, CNP [address] [place] [address] PCP - General Advanced Practice Nurse 12/06/21 documented as of this encounter
--- OUTSIDE RECORDS SUMMARY | 2024-08-28 02:26 | XMS_ITS | Encounter Summary ---
Author Organization [facility] Address [address] [facility] [place] [address] Phone Care Team Providers Care Flour Inspector Name Role Phone Orin Bond APRN, CNP Primary Care P tomasa Encounter Details Date Type Department Care Team (Late st Contact Info) Description 12/13/2021 9:30 AM CDT Lab [facility] - Primary Care - [address] [address] Lab, [facility] Routine general medical examination at health care facility (Adult) Discharge Disposition: Discharged to home or Selfcare [...] encounter Progress Notes * Vira San - 12/13/2021 9:30 AM CDT Yomaira presents for lab draw per order of Orin Bnod APN, CNP dated 12/13/21. Specimen collected from right antecubital without incident. quest documented in this encounter Plan of Treatment Not on file documented as of this encounter Visit Diagnoses Diagnosis Routine general medical examination at a health care facility documented in this encounter Care Teams Flour Inspector Relationship Specialty Start Date End Date Orin Bond APRN, CNP [address] [place] [address] PCP - General Advanced Practice Nurse 12/06/21 documented as of this encounter
--- OUTSIDE RECORDS SUMMARY | 2024-08-28 02:26 | XMS_ITS | Encounter Summary ---
Author Organization [employer] Care Team Providers Care Field Property Loss Specialist Name Role Phone Orin Bond APRN, CNP Primary Care P rovider Malia Field APRN, STRAINER CLEANER Unavailable [phone] Encounter Details Date Type Department Care Team (Latest Contact Info) Description 03/26/2023 Travel Social History Tobacco Use Types Packs/Day [...] on filedocumented in this encounter Care Teams Field Property Loss Specialist Relationship Specialty Start Date End Date Orin Bond APRN, CITLALLI [address] [place] [address] PCP - General Advanced Practice Nurse 12/06/21 Malia Field APRN, STRAINER CLEANER [address] [place] [address] Nurse Practitioner Advanced Practice Nurse 03/06/23 documented as of this encounter
--- OUTSIDE RECORDS SUMMARY | 2024-08-28 02:26 | XMS_ITS | Encounter Summary ---
Author Organization [facility] Address [address] [facility] [facility] [place] [address] Phone Care Team Providers Care Minibus Driver Name Role Phone Orin Bond APRN, CNP Primary Care P rovider Reason for Visit * Reason Onset Date Comments Results 12/17/2021 Labs Encounter Details Date Type Department Care Team (Late st Contact Info) Description 12/17/2021 Telephone [facility] - Primary Care - [place] [address] [place] [address] Orin Bond APRN, CNP [address] [place] [address] Results (Labs ) Social History [...] Telephone Encounter - Naomi Bentley RN - 12/17/2021 1:39 PM CDT Pt notified of results. Verbalized understanding. Pt scheduled 6 week tsh lab. * Telephone Encounter - Orin Bond APRN, CNP - 12/17/2021 12:43 PM CDT Very sllightly abnormal TSH, suggestive of possible hyperthyroid. I would like to repeat this in 6 weeks and if still abnormal, will refer to endo. All other labs good. documented in this encounter Plan of Treatment Scheduled Orders Name Type Priority Associated Diagnoses Orde r Schedule THYROID SCREEN WITH REFLEX Lab Routine Low TSH level Expected: 01/30/2022, Expires: 03/18/2022 documented as of this encounter Visit Diagnoses Diagnosis Low TSH level- Primary Nonspecific abnormal results of thyroid function study documented in this encounter Care Teams Minibus Driver Relationship Specialty Start Date End Date Orin Bond APRN, CNP [address] [place] [address] PCP - General Advanced Practice Nurse 12/06/21 documented as of this encounter
--- OUTSIDE RECORDS SUMMARY | 2024-08-28 02:26 | XMS_ITS | Encounter Summary ---
Author Organization [facility] Address [address] 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 No / Unsure 01/24/2023 8:29 PM CDT documented as of this encounter Last Filed Vital Signs Vital Sign Reading Time Taken Comments Blood Pressure 108/70 01/24/2023 11:30 PM CDT Pulse 57 01/24/2023 11:30 PM CDT Temperature 37.1 ??C (98.7 ??F) 01/24/2023 8:33 PM CD T Respiratory Rate 14 01/24/2023 11:30 PM CDT Oxygen Saturation 100% 01/24/2023 11:30 PM CDT Inhaled Oxygen Concentration - - Weight 72.6 kg (160 lb) 01/24/2023 8:33 PM CDT Height 175.3 cm (5' 9 ) 01/24/2023 8:33 PM CDT Body Mass Index 23.63 01/24/2023 8:33 PM CDT documented in this encounter Discharge Instructions * Discharge Instructions* Dangelo Garza MD - 01/24/2023 11:16 PM CDT Keep your appointment with Cardiology on Friday It was a good idea to call your physician on Friday and see if they can schedule you for Neurologyso that a follow up as needed you will be seen sooner * Attachments The following attachments cannot be sent through Care Everywhere. * Near-Syncope (Liberian) documented in this encounter Medications at Time [...] as of this encounter ED Notes * Jammie Garsia RN - 01/24/2023 11:39 PM CDT Patient discharged. Discharge instructions and patient educational material reviewed with patient; questions and concerns addressed; patient verbalizes understanding, using teach back. Patient discharged per ambulatory mode with significant other as responsible alliance party. SL D/C'ed with Franc cath intact. Belongings with patient. * Jammie Garsia RN - 01/24/2023 10:40 PM CDT Patient is resting in room with call light at bedside. IV fluids still infusing. Patient informed about wait time and verbalizes understanding. Patient denies needs at this time and verbalizes understanding that RN will complete hourly rounding. * Jammie Garsia RN - 01/24/2023 10:15 PM CDT Patient returned from CT. * Jammie Garsia RN - 01/24/2023 10:10 PM [address] Patient [address] CT. * Jammie Garsia RN - 01/24/2023 9:35 PM CDT Patient returned from bathroom with urine sample. * Jammie Garsia RN - 01/24/2023 9:32 PM CDT Patient to bathroom to provide urine sample. * Dangelo Garza MD - 01/24/2023 9:12 PM CDT Chief Complaint Patient presents with ??? Generalized Weakness Yomaira Ford is a 32 y.o. female who presents to the emergency department complaining of syncopeand near-syncope sensations. Patient states last Friday, 12 days ago, she began to have episodes where she felt like she was going to faint. She also had fatigue associated with this. On Friday patient did have a syncopal event. States she did not injure herself as she knew it was coming on an went down and sat down on the floor. Since that time she is had continued episodes where she feels lightheaded especially when she is doing activities. States she is fairly active with regular exerciseand has 3 children that keep her busy. Patient states sometimes she can kind of pushed through the failing however if she does then she begins to get some numbness on her left side of her body as well as a sensation that she is a little bit weak on the left side. States she stumbles little bit whenshe walks for a couple hours after these events but has not fallen. She does feel like she is going to fall. Continues to have lightheaded episodes and weakness. Patient was seen at [facility] after the syncopal event with a negative workup. Patient was seen here a few days ago and also had a negative workup. At that time she was offered admission but refused that time. States that symptoms have not improved. She saw her doctor today who got her in to get further testing but not till a week from today. She feels like she may not be able to wait that long so she thought that perhaps if she is able to get admitted she would like to be admitted so workup can be initiated. Past medical history: Illnesses: None Medications: None Allergies: No known drug allergy Surgeries: Tonsillectomy Social History: Tobacco: Nonsmoker Alcohol: Social Drugs: Denies Patient exercises regularly and eats healthy Family History: Mother: Hypertension Father: Fibromyalgia This chart was created using a voice recognition program. There maybe grammatical and/or syntax errors that are unintentional. No current facility-administered medications for this encounter. Current Outpatient Medications Medication Sig Dispense Refill ??? amoxicillin-clavulanate (AUGMENTIN) 875-125 MG Tablet Take 1 Tablet by mouth every 12 hours. ??? meclizine (ANTIVERT) 25 MG Tablet Take [...] Not on file ??? Highest education level: Bachelor's degree (e.g., BA, AB, BS) Occupational History ??? Not on file Tobacco Use ??? Smoking status: Never ??? Smokeless tobacco: Never Vaping Use ??? Vaping Use: Never used Substance and Sexual Activity ??? Alcohol use: No ??? Drug use: No ??? Sexual activity: Yes Partners: Male control/protection: Oral Contraceptive Other Topics Concern ??? Not on file Social History Narrative ??? Not on file BP 117/87 Pulse 71 Temp 98.7 ??F (37.1 ??C) (Tympanic) Resp 12 Ht 5' 9 (1.753 m) Wt 160 lb (72.6 kg) LMP 01/06/2023 (Exact Date) SpO2 100% BMI 23.63 kg/m?? Review of Systems Constitutional: Negative for activity change, appetite change, chills, diaphoresis, fatigue and fever. HENT: Negative for dental problem, rhinorrhea and sore throat. Eyes: Negative for visual disturbance. Respiratory: Negative for cough, chest tightness, shortness of breath and wheezing. Cardiovascular: Negative for chest pain, palpitations and leg swelling. Gastrointestinal: Negative for abdominal pain, constipation, diarrhea, nausea and vomiting. Genitourinary: Negative for difficulty urinating, flank pain, hematuria and urgency. Musculoskeletal: Negative for arthralgias, back pain, myalgias, neck pain and neck stiffness. Skin: Negative for color change and rash. Allergic/Immunologic: Negative for food allergies. Neurological: Positive for weakness, light-headedness and numbness. Negative for dizziness, syncopeand headaches. Psychiatric/Behavioral: Negative for self-injury, sleep disturbance and suicidal ideas. All other systems reviewed and are negative. Physical Exam Vitals and nursing note reviewed. Constitutional: General: She is not in acute distress. Appearance: She is well-developed. She is not diaphoretic. HENT: Head: Normocephalic and atraumatic. Right Ear: External ear normal. Left Ear: External ear normal. Nose: Nose normal. Mouth/Throat: Mouth: Mucous membranes are moist. Pharynx: No oropharyngeal exudate. Eyes: General: Right eye: No discharge. Left eye: No discharge. Conjunctiva/sclera: Conjunctivae normal. Pupils: Pupils are equal, round, and reactive to light. Neck: Thyroid: No thyromegaly. Vascular: No JVD. Trachea: No tracheal deviation. Cardiovascular: Rate and Rhythm: Normal rate and [...] Normal range of motion and neck supple. Lymphadenopathy: Cervical: No cervical adenopathy. Skin: General: Skin is warm and dry. Capillary Refill: Capillary refill takes less than 2 seconds. Coloration: Skin is not pale. Findings: No erythema or rash. Neurological: General: No focal deficit present. Mental Status: She is alert and oriented to person, place, and time. Cranial Nerves: No cranial nerve deficit. Sensory: No sensory deficit. Motor: No weakness or abnormal muscle tone. Coordination: Coordination normal. Deep Tendon Reflexes: Reflexes are normal and symmetric. Psychiatric: Behavior: Behavior normal. Thought Content: Thought content normal. Procedures Imaging Results CT HEAD OR BRAIN WO CONTRAST (Final result) Result time 01/24/23 22:53:15 Final result by Denys Sweeney MD (01/24/23 22:53:15) Impression: IMPRESSION: No acute intracranial findings. Narrative: EXAM DESCRIPTION: CT HEAD OR BRAIN WO CONTRAST REASON FOR STUDY: Syncopal episode today, starting 1 week ago. TECHNIQUE: Axial images acquired through the brain without intravenous contrast. Images stored on PACS. Automated exposure control was used as a dose optimization technique for this examination. COMPARISON: None available FINDINGS: BRAIN: No hemorrhage, edema or mass effect. No recent infarct. Normal white matter. EXTRA-AXIAL SPACES: No fluid collections. No masses. CALVARIUM: No fracture. SINUSES/MASTOIDS: No fluid or mucosal thickening. ORBITS: No significant abnormality. OTHER: No other significant abnormality. THIS IS AN ELECTRONICALLY VERIFIED FINAL REPORT 01/24/2023 10:50 PM - Electronically signed by Denys Sweeney M.D. RB: ZACKARY Report ID: [id number] Reading Location: [id number] XR CHEST SINGLE VIEW PORTABLE (Final result) Result time 01/24/23 22:35:42 Final result by Shalom Huerta MD (01/24/23 22:35:42) Impression: IMPRESSION: No acute cardiopulmonary abnormality. Narrative: EXAM DESCRIPTION: XR CHEST SINGLE VIEW PORTABLE REASON FOR STUDY: syncope; c/o generalized weakness and feeling like she is going to pass out all the time. Pt states this started x 1 week ago when she passed out at work. Pt reports being seen here and having a full workup x 2 days ago. TECHNIQUE: Single portable radiographic view(s) of the chest. COMPARISON: None FINDINGS: LUNGS: No focal opacity, pleural effusion, or pneumothorax. HEART/MEDIASTINUM: Cardiac silhouette normal in size. Mediastinal and hilar contours appear normal. LINES/TUBES: None. BONES: No acute osseous abnormality. THIS IS AN ELECTRONICALLY VERIFIED FINAL REPORT 01/24/2023 10:32 PM - Electronically signed by Shalom Huerta M.D. BB: GENESIS Report ID: [id number] Reading Location: [id number] Labs Reviewed URINALYSIS REFLEX IF INDICATED BY ABNORMAL RESULTS - Abnormal; Notable for the following components: Result Value PROTEIN, RANDOM URINE 15 mg/dL (*) All other components within normal limits CMP (COMPREHENSIVE METABOLIC PANEL) - Abnormal; Notable for the following components: POTASSIUM 3.4 (*) All other components within normal limits CBC WITH AUTO DIFFERENTIAL - Abnormal; Notable for the following components: MPV 9.6 (*) All other components within normal limits SARS-COV-2 BY MOLECULAR - Normal Narrative: This test has been authorized by the FDA under an Emergency Use Authorization (EUA) only. Negative results should be treated as presumptive and, if inconsistent with clinical signs and symptoms or necessary for patient management, the patient should be tested with an alternative molecularassay. Negative results do not preclude SARS-CoV-2 infection or any other respiratory pathogen. Additional information for Clinicians can be found at: https://www.fda.gov/media/405446/download Additional information for Patients can be found at: https://www.fda.gov/media/316883/download MAGNESIUM (MG) - Normal COMPLETE BLOOD COUNT (CBC) WITH DIFF Narrative: The following orders were created for panel order CBC w/ Diff. Procedure Abnormality Status --------- ------ CBC with Auto Differential[[id number]] Abnormal Final result Please view results for these tests on the individual orders. POCT URINE HCG () MDM EKG visualized and interpreted by me. Time is 9:40 p.m.. Normal sinus rhythm with a rate of 60. Newborn is normal. Intervals are normal. QRS complexes are unremarkable. ST segments are normal. T-waves are normal. There is no acute injury pattern. Compared to EKG dated 01/22/2023, no significant morphologic changes. Chest x-ray visualized and interpreted by me. No acute disease Impression: Patient presents with syncope and near-syncope sensation concerning for neurologic or cardiologic etiology. Notably, further history obtained from previous visit here were reviewed. Patient's history of active healthy without other medical problems has impacted care and subsequent medical decision making. In the workup of these potential diagnoses I considered but did not pursue stroke, meningitis, encephalitis, dissection, PE due to signs and symptoms on exam and initial findings not consistent with these disease processes. Tests were independently reviewed and interpreted and imaging independently visualized and interpreted. This is notable for negative chest x-ray. CT was also unremarkable. Labs all look good. Plan for discharge home. Discussed the case with patient and spouse. I will prescribe no new medicines. Would recommend follow up with Neurology and Cardiology. Patient may benefit from vascular studies to ensure that she is not having near ischemia although unlikely in her presentation and likely her age and health condition. Reasons to return to the emergency room were discussed. Clinical Impression 1. Near syncope Disposition: Discharged The patient remained stable throughout their ED stay. My clinical impression was discussed with thepatient/caregiver. Any labs and radiology results were reviewed. Questions were addressed as completely as possible given the information available at present. The therapeutic plan was discussed, inst ructions were given and the importance of primary care follow up was stressed and encouraged. The patient/caregiver voiced understanding of the plan, indications to return, and the need for follow up. Reasons to return to the E.D. were discussed. New Medications: New Prescriptions No medications on file I have advised the patient to follow-up with: Orin Bond, SUPERVISOR [employer], WINE PASTEURIZER [address] [facility] [address] Call on 01/28/2023 Dispostion: Discharge * Junior Hopkins RN - 01/24/2023 8:31 PM CDT Pt to ED with c/o generalized weakness and feeling like she is going to pass out all the time. Pt states this started x 1 week ago when she passed out at work. Pt reports being seen here and having afull workup x 2 days ago. Pt states they mention admission but she had a PCP appointment yesterday and her doctor order an echo and holter monitor that she cant get done until next week. documented in this encounter Plan of Treatment Not on file documented as of this encounter Procedures Procedure Name Priority Date/Time Associated Diagnosis Comments CT HEAD OR BRAIN WO CONTRAST Stat with Interpretation 01/24/2023 10:23 PM CDT XR CHEST SINGLE VIEW PORTABLE STAT 01/24/2023 10:22 PM CDT CBC WITH AUTO DIFFERENTIAL STAT 01/24/2023 9:48 PM CDT MAGNESIUM (MG) STAT 01/24/2023 9:48 PM CDT CMP (COMPREHENSIVE METABOLIC PANEL) STAT 01/24/2023 9:48 PM CDT COMPLETE BLOOD COUNT (CBC) WITH DIFF STAT 01/24/2023 9:48 PM CDT EKG 12 LEAD STAT 01/24/2023 9:40 PM CDT POCT URINE HCG () STAT 01/24/2023 9:38 PM CDT SARS-COV-2 BY MOLECULAR STAT 01/24/2023 9:37 PM CDT URINALYSIS REFLEX IF INDICATED BY ABNORMAL RESULTS STAT 01/24/2023 9:36 PM CDT EKG SCAN 01/24/2023 12:00 AM CDT documented in this encounter Results * CT HEAD OR BRAIN WO CONTRAST (01/24/2023 10:23 PM CDT) Anatomical Region Laterality Modality Head N/A Computed Tomogra phy 01/24/2023 10:5 0 PM CDT Impressions 01/24/2023 10:53 PM CDT IMPRESSION: ?? No acute intracranial findings. Narrative 01/24/2023 10:53 PM CDT EXAM DESCRIPTION: ?? CT HEAD OR BRAIN WO CONTRAST REASON FOR STUDY: ?? Syncopal episode today, starting 1 week ago. TECHNIQUE: Axial images acquired through the brain without intravenous contrast. ??Images stored on PACS. ?? Automated exposure control was used as a dose optimization technique for this examination. COMPARISON: ?? None available FINDINGS: BRAIN: ?? No hemorrhage, edema or mass effect. No recent infarct. ?Normal white matter. ? EXTRA-AXIAL SPACES: ?? No fluid collections. No masses. CALVARIUM: ?? No fracture. SINUSES/MASTOIDS: ?? No fluid or mucosal thickening. ORBITS: ?? No significant abnormality. OTHER: ?? No other significant abnormality. THIS IS AN ELECTRONICALLY VERIFIED FINAL REPORT 01/24/2023 10:50 PM - Electronically signed by ??Denys Sweeney M.D. RB: ZACKARY D: ??01/24/2023 10:50 PM T: ??01/24/2023 10:50 PM Report ID: [id number] Reading Location: ??[id number] Procedure Note Denys Sweeney MD - 01/24/2023 EXAM DESCRIPTION: CT HEAD OR BRAIN WO CONTRAST REASON FOR STUDY: Syncopal episode today, starting 1 week ago. TECHNIQUE: Axial images acquired through the brain without intravenous contrast. Images stored on PACS. Automated exposure control was used as a dose optimization technique for this examination. COMPARISON: None available FINDINGS: BRAIN: No hemorrhage, edema or mass effect. No recent infarct. Normal white matter. EXTRA-AXIAL SPACES: No fluid collections. No masses. CALVARIUM: No fracture. SINUSES/MASTOIDS: No fluid or mucosal thickening. ORBITS: No significant abnormality. OTHER: No other significant abnormality. THIS IS AN ELECTRONICALLY VERIFIED FINAL REPORT 01/24/2023 10:50 PM - Electronically signed by Denys Sweeney M.D. RB: ZACKARY Report ID: [id number] Reading Location: [id number] IMPRESSION: No acute intracranial findings. Dangelo Garza MD [facility] CT ORDERABLES Final Result * XR CHEST SINGLE VIEW PORTABLE (01/24/2023 10:22 PM CDT) Anatomical Region Laterality Modality Chest N/A Digital Radiogra phy 01/24/2023 10:3 2 PM CDT Impressions 01/24/2023 10:35 PM CDT IMPRESSION: No acute cardiopulmonary abnormality. Narrative 01/24/2023 10:35 PM CDT EXAM DESCRIPTION: XR CHEST SINGLE VIEW PORTABLE REASON FOR STUDY: syncope; c/o generalized weakness and feeling like she is going to pass out all the time. Pt states this started x 1 week ago when she passed out at work. Pt reports being seen here and having a full workup x 2 days ago. ?? TECHNIQUE: Single portable ??radiographic view(s) of the chest. COMPARISON: None FINDINGS: LUNGS: ??No focal opacity, pleural effusion, or pneumothorax. ?? HEART/MEDIASTINUM: ??Cardiac silhouette normal in size. Mediastinal and hilar contours appear normal. LINES/TUBES: ??None. BONES: ??No acute osseous abnormality. THIS IS AN ELECTRONICALLY VERIFIED FINAL REPORT 01/24/2023 10:32 PM - Electronically signed by ??Shalom Huerta M.D. BB: GENESIS D: ??01/24/2023 10:32 PM T: ??01/24/2023 10:32 PM Report ID: [id number] Reading Location: ??[id number] Procedure Note Shalom Huerta MD - 01/24/2023 EXAM DESCRIPTION: XR CHEST SINGLE VIEW PORTABLE REASON FOR STUDY: syncope; c/o generalized weakness and feeling like she is going to pass out all the time. Pt states this started x 1 week ago when she passed out at work. Pt reports being seen here and having a full workup x 2 days ago. TECHNIQUE: Single portable radiographic view(s) of the chest. COMPARISON: None FINDINGS: LUNGS: No focal opacity, pleural effusion, or pneumothorax. HEART/MEDIASTINUM: Cardiac silhouette normal in size. Mediastinal and hilar contours appear normal. LINES/TUBES: None. BONES: No acute osseous abnormality. THIS IS AN ELECTRONICALLY VERIFIED FINAL REPORT 01/24/2023 10:32 PM - Electronically signed by Shalom Huerta M.D. BB: GENESIS Report ID: [id number] Reading Location: [id number] IMPRESSION: No acute cardiopulmonary abnormality. Dangelo Garza MD [facility] DIAGNOSTIC ORDERABLES Final Result * (ABNORMAL) CBC with Auto Differential (01/24/2023 9:48 PM CDT) [facility] WBC 10.30 4.00 - 12.00 10(3)/[facility] 01/24/2023 10:02 PM CDT [facility] RBC 3.88 3.80 - 5.30 10(6)/[facility] 01/24/2023 10:02 PM CDT [facility] HEMOGLOBIN (HGB) 12.2 12.0 - 15.8 g/dL 01/24/2023 10:02 PM CDT [facility] HEMATOCRIT (HCT) 36.3 36.0 - 47.0 % 01/24/2023 10:02 PM CDT [facility] MCV 93.6 82.0 - 96.0 fL 01/24/2023 10:02 PM CDT [facility] MCH 31.4 26.0 - 34.0 pg 01/24/2023 10:02 PM CDT [facility] MCHC 33.6 31.0 - 36.0 g/dL 01/24/2023 10:02 PM CDT [facility] PLATELET COUNT 250 140 - 440 10(3)/[facility] 01/24/2023 10:02 PM CDT [facility] RDW 11.9 11.8 - 15.5 % 01/24/2023 10:02 PM CDT [facility] MPV 9.6(L) 9.7 - 12.4 fL 01/24/2023 10:02 PM CDT [facility] NEUTROPHILS 69.2 47.0 - 73.0 % 01/24/2023 10:02 PM CDT [facility] LYMPHOCYTES 24.8 18.0 - 42.0 % 01/24/2023 10:02 PM CDT [facility] MONOCYTES 5.0 4.0 - 12.0 % 01/24/2023 10:02 PM CDT [facility] EOSINOPHILS 0.7 0.0 - 5.0 % 01/24/2023 10:02 PM CDT [facility] BASOPHILS 0.3 0.0 - 1.0 % 01/24/2023 10:02 PM CDT [facility] ABSOLUTE NEUTROPHILS 7.13 1.60 - 7.70 10(3)/[facility] 01/24/2023 10:02 PM CDT [facility] ABSOLUTE LYMPHOCYTES 2.55 1.30 - 3.20 10(3)/[facility] 01/24/2023 10:02 PM CDT [facility] ABSOLUTE MONOCYTES 0.52 0.20 - 1.00 10(3)/[facility] 01/24/2023 10:02 PM CDT [facility] ABSOLUTE EOSINOPHIL 0.07 0.00 - 0.40 10(3)/[facility] 01/24/2023 10:02 PM CDT [facility] ABSOLUTE BASOPHILS 0.03 0.00 - 0.10 10(3)/[facility] 01/24/2023 10:02 PM CDT [facility] NRBC PER 100 WBC 0 01/25/20 10:02 PM CDT [facility] Blood Venipuncture / Unknown 01/24/2023 9:48 PM CDT 01/24/2023 9:59 PM CDT Dangelo Garza MD HEMATOLOGY ORDERABLES Final Res ult Performing Organization Address City/[facility]/ZIP Co de Phone Number [facility] [address] [place] [address] * Magnesium (01/24/2023 9:48 PM CDT) MAGNESIUM 1.8 1.8 - 2.5 mg/dL 01/24/2023 10:19 PM CDT [facility] Blood Venipuncture / Unknown 01/24/2023 9:48 PM CDT 01/24/2023 9:59 PM CDT Dangelo Garza MD CHEMISTRY ORDERABLES Final Resu lt [facility] [address] [place] [address] * (ABNORMAL) CMP (01/24/2023 9:48 PM CDT) SODIUM 139 136 - 144 mmol/L 01/24/2023 10:19 PM CDT [facility] POTASSIUM 3.4(L) 3.5 - 5.1 mmol/L 01/24/2023 10:19 PM CDT [facility] CHLORIDE 104 100 - 110 mmol/L 01/24/2023 10:19 PM CDT [facility] CO2, VENOUS 25 22 - 32 mmol/L 01/24/2023 10:19 PM CDT [facility] ANION GAP 13.4 8.0 - 20.0 mmol/L 01/24/2023 10:19 PM CDT [facility] GLUCOSE 95 70 - 99 mg/dL 01/24/2023 10:19 PM CDT [facility] BUN 10 6 - 20 mg/dL 01/24/2023 10:19 PM CDT [facility] CREATININE, BLOOD 0.61 0.60 - 1.10 mg/dL 01/24/2023 10:19 PM CDT [facility] BUN/CREATININE RATIO 16 12 - 20 ratio 01/24/2023 10:19 PM CDT [facility] TOTAL PROTEIN 7.3 6.0 - 8.3 g/dL 01/24/2023 10:19 PM CDT [facility] ALBUMIN 4.5 3.5 - 5.2 g/dL 01/24/2023 10:19 PM CDT [facility] Comment: The colormetric methods used for the determination of Albumin may lead to falsely elevated test results in patients suffering from renal failure or insufficiency due to interference with other proteins. A/G RATIO 1.6 1.0 - 2.0 01/24/2023 10:19 PM CDT [facility] CALCIUM 9.3 8.9 - 10.3 mg/dL 01/24/2023 10:19 PM CDT [facility] T BILI 0.6 <=1.2 mg/dL 01/24/2023 10:19 PM CDT [facility] SGOT (AST) 13 <=32 U/L 01/24/2023 10:19 PM CDT [facility] SGPT (ALT) 10 <=41 U/L 01/24/2023 10:19 PM CDT [facility] ALKALINE PHOSPHATASE 49 35 - 105 U/L 01/24/2023 10:19 PM CDT [facility] GFR, ESTIMATED >60 >=60 01/24/2023 10:19 PM CDT [facility] Comment: Creatinine Clearance is the preferred criteria for selecting drug dose adjustments in renally impaired patients. ??The GFR is provided as additional pertinent clinical information. GFR is reported in mL/min/1.73 sq m. Calculation based on the Chronic Kidney Disease Epidemiology Collaboration (CKD- EPI) equation refit without adjustment for race. GFR, EST. >60 >=60 023 10:19 PM CDT [facility] GFR, EST. NONAFRICAN >60 >=60 01/24/2023 10:19 PM CDT [facility] Blood Venipuncture / Unknown 01/24/2023 9:48 PM CDT 01/24/2023 9:59 PM CDT us Dangelo Garza MD CHEMISTRY ORDERABLES Final Resu lt [facility] [address] [place] [address] * EKG 12 LEAD (01/24/2023 9:40 PM CDT) Ventricular Rate 60 BPM EXTERNAL EKG Atrial Rate 60 BPM EXTERNAL EKG P-R Interval 164 ms EXTERNAL EKG QRS Duration 84 ms EXTERNAL EKG Q-T Duration 396 ms EXTERNAL EKG QTC CALCULATION 396 ms EXTERNAL EKG P Newborn 62 degrees EXTERNAL EKG R Newborn 75 degrees EXTERNAL EKG T Newborn 47 degrees EXTERNAL EKG 01/24/2023 9:40 PM CDT Impressions EXTERNAL EKG - 01/29/2023 7:56 AM CDT Normal sinus rhythm Normal ECG When compared with ECG of 22-JAN-2023 14:33, (Unconfirmed) No significant change was found Confirmed by Raj Moore ([id number]) on 01/29/2023 7:56:00 AM Narrative Procedure Note Raj Díaz MD - 01/29/2023 IMPRESSION: Normal sinus rhythm Normal ECG When compared with ECG of 22-JAN-2023 14:33, (Unconfirmed) No significant change was found Confirmed by Raj Moore ([id number]) on 01/29/2023 7:56:00 AM Dangelo Garza MD IMG ECG ORDERABLES Final Result EXTERNAL EKG * POCT Urine HCG () (01/24/2023 9:38 PM CDT) Pathologist [facility] POC URINE Negative POC URINE CONTROL Technology Administrator Pass Urine 01/24/2023 9:38 PM CDT Dangelo Garza MD POINT OF CARE TESTING (MANUAL) Final Result * SARS-COV-2 BY MOLECULAR (01/24/2023 9:37 PM CDT) Pathologist [facility] SARSCOV2 NOT DETECTED (Referenc e Range for this test is Not Detected) [facility] ID NOW B 01/24/2023 10:13 PM CDT [facility] Comment:This test was perfor med by a MOLECULAR, NON-PCR method Other NASAL STRUCTURE / Unknown Non-Phlebotomy Collection / Unknown 01/24/2023 9:37 PM CDT 01/24/2023 9:53 PM CDT Narrative [facility] - 01/24/2023 10:13 PM CDT This test has been authorized by the FDA under an Emergency Use Authorization (EUA) only. Negative results should be treated as presumptive and, if inconsistent with clinical signs and symptoms or necessary for patient management, the patient should be tested with an alternative molecular assay. Negative results do not preclude SARS-CoV-2 infection or any other respiratory pathogen. Additional information for Clinicians can be found at: https://www.fda.gov/media/618727/download Additional information for Patients can be found at: https://www.fda.gov/media/868682/download Dangelo Garza MD MICROBIOLOGY - GENERAL ORDERABL ES Final Result [facility] [address] [place] [address] * (ABNORMAL) Urinalysis w/ Reflex (01/24/2023 9:36 PM CDT) SPECIFIC GRAVITY 1.005 1.003 - 1.030 01/24/2023 10:09 PM CDT [facility] URINE PH 6.5 5.0 - 9.0 01/24/2023 10:09 PM CDT [facility] WBC ESTERASE Negative Negative 01/24/2023 10:09 PM CDT [facility] NITRITE Negative Negative 01/24/2023 10:09 PM CDT [facility] PROTEIN, RANDOM URINE 15 mg/dL(A) Negative 01/24/2023 10:09 PM CDT [facility] URINE GLUCOSE, QUAL Negative Negative 01/24/2023 10:09 PM CDT [facility] URINE KETONES Negative Negative 01/24/2023 10:09 PM CDT [facility] UROBILINOGEN Normal Normal mg/dL 01/24/2023 10:09 PM CDT [facility] URINE BLOOD Negative Negative jan/ul 01/24/2023 10:09 PM CDT [facility] URINALYSIS COLOR Yellow 01/25/20 10:09 PM CDT [facility] URINALYSIS CLARITY Clear 01/24/2023 10:09 PM CDT [facility] Urine URINE SPECIMEN COLLECTION, CLEAN CATCH / Unknown Non-Phlebotomy Collection / Unknown 01/24/2023 9:36 PM CDT 01/24/2023 9:53 PM CDT us Dangelo Garza MD URINE ORDERABLES Final Result [facility] [address] [place] [address] * EKG SCAN (01/24/2023 12:00 AM CDT) 01/24/2023 us Provider Scan IMG ECG ORDERABLES Final Result Performing Organization Address City/[facility]/ZIP Co de Phone Number SCAN documented in this encounter Visit Diagnoses Diagnosis Near syncope- Primary Syncope and collapse documented in this encounter Administered Medications Inactive Administered Medications - up to 3 most recent administrations Medication Order MAR Action Action Date Dose Rate Site sodium chloride 0.9 % 1,000 mL IV bolus 1,000 mL, Intravenous, ONCE, 1 dose, On Fri01/24/23 at 2130, Administer over 0.5 Hours New Bag 01/24/2023 9:48 PM CDT 1,000 mL 2000 mL/hr documented in this encounter Active and Recently Administered Medications Times are shown in CDT. Scheduled Medication Order 01/22/2023 01/23/2023 01/24/2023 sodium chloride 0.9 % 1,000 mL IV bolus (COMPLETED) 1,000 mL, Intravenous, ONCE, 1 dose, On Fri01/24/23 at 2130, Administer over 0.5 Hours 2148 (New Bag - Prov ider: Jammie Garsia, AVTAR)2251 (Stopped - Provider: Jammie Garsia RN) documented in this encounter Care Teams Welder Pipe Making Relationship Specialty Start Date End Date Orin Bond APRN, WINE PASTEURIZER [address] [place] [address] PCP - General Advanced Practice Nurse 12/06/21 documented as of this encounter
--- OUTSIDE RECORDS SUMMARY | 2024-08-28 02:26 | XMS_ITS | Encounter Summary ---
Author Organization Next Caller Care Team Providers Care Associate Professor Of Biostatistics Name Role Phone Orin Bond APRN, CNP Primary Care P rovider Malia Field APRN, SYRUP MIXER HELPER Unavailable [phone]- [phone] Encounter Details Date Type Department Care Team (Latest Contact Info) Description 03/06/2023 Travel Social History Tobacco Use Types Packs/Day [...] on filedocumented in this encounter Care Teams Associate Professor Of Biostatistics Relationship Specialty Start Date End Date Orin Bond APRN, CITLALLI [address] [place] [address] PCP - General Advanced Practice Nurse 12/06/21 Malia Field APRN, SYRUP MIXER HELPER [address] [place] [address] Nurse Practitioner Advanced Practice Nurse 03/06/23 documented as of this encounter
--- OUTSIDE RECORDS SUMMARY | 2024-08-28 02:26 | XMS_ITS | Encounter Summary ---
Author Organization [facility] Address [address] [address] Phone Care Team Providers Care Brick Unloader Tender Name Role Phone Orin Bond APRN, PRODUCE DEPARTMENT MANAGER Primary Care P rovider Malia Field APRN, AUTO RENTAL CLERK Unavailable +- [phone] Reason for Visit * Reason Comments Fatigue 4 WK REK better star ting to see a change at the end of her period this time she felt fatigue she was not stuck in bed like before / numbness and tingling better but still there Encounter Details Date Type Department Care Team (Late st Contact Info) Description 05/20/2023 10:00 AM CDT Office Visit [facility] - Primary Care - [place] [address] [place] [address] Teressa Gordon, PAC [address] [place] [address] Altered mental status, unspecified altered mental status type (Primary Dx); Neuropathy; Weakness Discharge Disposition: Discharged to home or Selfcare [...] Sign Reading Time Taken Comments Blood Pressure 94/66 05/20/2023 10:16 AM CDT Pulse 75 05/20/2023 10:16 AM CDT Temperature 36.6 ??C (97.9 ??F) 05/20/2023 10:16 AM C DT Respiratory Rate 12 05/20/2023 10:16 AM CDT Oxygen Saturation 100% 05/20/2023 10:16 AM CDT Inhaled Oxygen Concentration - - Weight 70.8 kg (156 lb) 05/20/2023 10:16 AM CDT Height 175.3 cm (5' 9 ) 05/20/2023 10:16 AM CDT Body Mass Index 23.04 05/20/2023 10:16 AM CDT documented in this encounter Progress Notes * Talya Baxter RMA - 05/20/2023 10:00 AM CDT Yomaira Ford, 33 y.o., female is here for Fatigue (4 WK REK ) Medication Refills: Patient reports/denies need for medication refills. Orders Pended: no Requested Prescriptions No prescriptions requested or ordered in this encounter Home Medications Medication Sig Start Date End Date Taking? Authorizing Provider diphenhydrAMINE (BENADRYL) 50 MG Capsule Take 1 capsule 1 hour prior to exam 05/15/23 Yes Malia Field M, INDEPENDENT LIVING SPECIALIST, AUTO RENTAL CLERK diphenhydrAMINE (BENADRYL) 50 MG Capsule Take 1 tab by mouth 1 hour prior to MRI 04/29/23 Yes Malia Field APRN, AUTO RENTAL CLERK meclizine (ANTIVERT) 12.5 MG Tablet Take 1 Tablet by mouth every 8 hours as needed for Dizziness orNausea. 03/06/23 Yes Malia Field APRN, AUTO RENTAL CLERK Multiple Vitamins-Minerals (MULTIPLE VITAMINS/WOMENS PO) Take by mouth. Yes Provider, MD Felipe predniSONE (DELTASONE) 50 MG Tablet Take 1 tab by mouth 13 hours prior to exam, 1 tab by mouth 7 hours prior to exam and 1 tablet by mouth 1 hour prior to exam 05/15/23 Yes Malia Field APRN AUTO RENTAL CLERK predniSONE (DELTASONE) 50 MG Tablet Take 1 tab by mouth 13 hours prior to MRI. Take 1 tab by mouth 7 hours prior to MRI. Take 1 tab by mouth 1 hour prior to MRI. 04/29/23 Yes Malia Field APRN,AUTO RENTAL CLERK There are no discontinued medications. I have [...] Never done ??? Influenza Immunization (1) 05/02/2023 Orders Pended: no The following BPA's have been addressed with the patient today: BMI and Flu * Teressa Gordon, PAC - 05/20/2023 10:00 AM CDT Chief Complaint: Chief Complaint Patient presents with ??? Fatigue 4 WK REK better starting to see a change at the end of her period this time she felt fatigue she was not stuck in bed like before / numbness and tingling better but still there Assessment/Plan: There are no diagnoses linked to this encounter. Cardio appt due [facility]; Jun 2023 MRI MRA scheduled Braces are off now Pt had covid end of April Sx are now improved slightly but still many present Is seeing neuro at [facility]' New referral for her to see NEURO at [place] No new tests No new test results No new consultations Sx slightly better but otherwise unchanged from las OV Await testing and consultation with NEURO Exam unchanged from last OV Subjective: Ms. Yomaira Ford is a 33 y.o. female here today for above. 4 wk f/u Has not had MRI MRA Has no seen NEURO at [place] Did get covid end of Apr Sx were actually better slightly since covid and covid resolution She has a little more energy and is able to do a little more Did have some coldness and discoloration and swelling of toes; that has now resolved Had a FRYE this weekend; this has now resolved Otherwise no sig changes ROS: Review of Systems Constitutional: Positive for malaise/fatigue. Neurological: Positive for dizziness, tingling, sensory change, weakness and headaches. Psychiatric/Behavioral: Positive for depression. VITAL SIGNS: BP Readings from Last 3 Encounters: 05/20/23 94/66 04/21/23 108/70 04/17/23 114/70 Wt Readings from Last 3 Encounters: 05/20/23 156 lb (70.8 kg) 04/21/23 159 lb (72.1 kg) 04/17/23 157 lb (71.2 kg) Vitals: 05/20/23 1016 BP: 94/66 BP Location: Right Arm BP Position: Sitting BP Cuff Size: Regular Pulse: 75 Resp: 12 Temp: 97.9 ??F (36.6 ??C) TempSrc: Temporal SpO2: 100% Weight: 156 lb (70.8 kg) Height: 5' 9 (1.753 m) Body mass index is 23.04 kg/m??. PHYSICAL EXAM: Physical Exam Vitals reviewed. Constitutional: Appearance: Normal appearance. HENT: Head: Normocephalic and atraumatic. Nose: Nose normal. Mouth/Throat: Mouth: Mucous membranes are moist. Eyes: Conjunctiva/sclera: Conjunctivae normal. Pupils: Pupils are equal, round, and reactive to light. Cardiovascular: Rate and Rhythm: Regular rhythm. Heart sounds: Normal heart sounds. Pulmonary: Breath sounds: Normal breath sounds. Abdominal: General: Bowel sounds are normal. Palpations: Abdomen is soft. Musculoskeletal: General: Normal range of motion. Cervical back: Neck supple. Skin: General: Skin is warm. Neurological: Mental Status: She is alert. Mental status is at baseline. Comments: Hyper reflexic Slightly spastic on exam Psychiatric: Mood and Affect: Mood normal. Labs/Studies [...] change was found Confirmed by Raj Moore ([id number]) on 01/29/2023 7:56:00 AM EKG 12 LEAD Result Date: 01/29/2023 Normal sinus rhythm Normal ECG No previous ECGs available Confirmed by Raj Moore ([id number]) on 01/29/2023 7:55:59 AM Recent Procedure Details No resulted procedures found. FOLLOWUP: Follow-up Information No follow-ups on file. LOS Today No Level of Service on file Past medical, surgical, social and family history has been reviewed and updated as necessary. Medications and allergies has been reviewed and updated. I discussed all new medications and potential side effects or risks associated with them. Patient is to contact our office with any concerns. Patient instructions and educational materials were given to the patient. Patient (or patient outside dealer sales representative) demonstrates verbal understanding of instructions [...] as of this encounter Visit Diagnoses Diagnosis Altered mental status, unspecified altered mental status type- Primary Neuropathy Mononeuritis of unspecified site Weakness Other malaise and fatigue documented in this encounter Additional Health Concerns Assessment Noted Time PHQ-9 Depression Total Score: 4 04/17/20 23 11:00 AM CDT documented as of this encounter Care Teams Brick Unloader Tender Relationship Specialty Start Date End Date Orin Bond APRN, PRODUCE DEPARTMENT MANAGER [address] [place] [address] PCP - General Advanced Practice Nurse 12/06/21 Malia Field APRN, AUTO RENTAL CLERK [address] [place] [address] Nurse Practitioner Advanced Practice Nurse 03/06/23 documented as of this encounter
--- OUTSIDE RECORDS SUMMARY | 2024-08-28 02:26 | XMS_ITS | Encounter Summary ---
Author Organization [facility] Address [address] [place] [address] Phone Care Team Providers Care Refrigerator Car Icer Name Role Phone Orin Bond APRN, CNP Primary Care P rovider Reason for Visit * Reason Onset Date Comments Lethargy 01/24/2023 Altered Mental Status 01/24/2023 Encounter Details Date Type Department Care Team (Late st Contact Info) Description 01/24/2023 Nurse Triage [facility] [address] [place] [address] Orin Bond APRN, DIRECTOR OF WEB MARKETING [address] [place] [address] Lethargy; Altered Mental Status Social History Tobacco Use Types Packs/Day Years [...] encounter Miscellaneous Notes * Telephone Encounter - Rosa Black RN - 01/24/2023 5:31 PM CDT SITUATION: Weakness, confusion BACKGROUND: Patient passed out at work over a week ago and was brought by to the emergency room. ASSESSMENT: Patient's (on PRD) is calling in for patient Reports: Can't stand up for a long period Confused One side of the body goes numb Severe weakness and worsening Denies: Chest pain Difficulty breathing RECOMMENDATION: See care advice and disposition for Guideline First positive answer recorded, all responses to prior questions were negative. If symptoms increase, change or if new symptoms develop, call your HCP or call back. Recommendations were based on caller information and is not a diagnosis. Verified and reviewed all triage information with caller. Reason for Disposition ??? [1] SEVERE weakness (i.e., unable to walk or barely able to walk, requires support) AND [2] new-onset or worsening Protocols used: WEAKNESS (GENERALIZED) AND [id number] Disposition: Call EMS 911 now. Offered to call 911 but states he'll call 911. documented in this encounter Plan of Treatment Not on file documented as of this encounter Visit Diagnoses Not on filedocumented in this encounter Care Teams Refrigerator Car Icer Relationship Specialty Start Date End Date Orin Bond, PROGRAM DIR, DIRECTOR OF WEB MARKETING [address] [place] [address] PCP - General Advanced Practice Nurse 12/06/21 documented as of this encounter
--- OUTSIDE RECORDS SUMMARY | 2024-08-28 02:26 | XMS_ITS | Encounter Summary ---
Author Organization [facility] Address [address] [place] [address] Phone Care Team Providers Care Anvilsmith Name Role Phone Orin Bond APRN, NURSING PROGRAM MANAGER Primary Care P rovider Malia Field APRN, BEVELING MACHINE OPERATOR Unavailable [phone]- [phone] Encounter Details Date Type Department Care Team (Late st Contact Info) Description 04/29/2023 [facility]phone [facility] - [place] [address] [place] [address] Malia Field APRN, BEVELING MACHINE OPERATOR [address] [place] [address] Social History Tobacco Use Types [...] Telephone Encounter - Isaura Lewis RN - 04/29/2023 9:10 AM CDT Opened in error documented in this encounter Plan of Treatment Not on file documented as of this encounter Visit Diagnoses Not on filedocumented in this encounter Additional Health Concerns Assessment Noted Time PHQ-9 Depression Total Score: 4 04/17/20 11:00 AM CDT documented as of this encounter Care Teams Anvilsmith Relationship Specialty Start Date End Date Orin Bond APRN, NURSING PROGRAM MANAGER [address] [place] [address] PCP - General Advanced Practice Nurse 12/06/21 Malia Field APRN, BEVELING MACHINE OPERATOR [address] [place] [address] Nurse Practitioner Advanced Practice Nurse 03/06/23 documented as of this encounter
--- OUTSIDE RECORDS SUMMARY | 2024-08-28 02:26 | XMS_ITS | Encounter Summary ---
Author Organization [facility] Care Team Providers Care Underlay Stitcher Name Role Phone Orin Bond APRN, RELIEF SALESPERSON Primary Care P rovider Malia Field APRN, TOUR LEADER Unavailable [phone]- [phone] Encounter Details Date Type Department Care Team (Latest Contact Info) Description 05/19/2023 Travel Social History Tobacco Use Types Packs/Day [...] documented as of this encounter Care Teams Underlay Stitcher Relationship Specialty Start Date End Date Orin Bond APRN, RELIEF SALESPERSON [address] [place] [address] PCP - General Advanced Practice Nurse 12/06/21 Malia Field APRN, TOUR LEADER [address] [place] [address] Nurse Practitioner Advanced Practice Nurse 03/06/23 documented as of this encounter
--- OUTSIDE RECORDS SUMMARY | 2024-08-28 02:26 | XMS_ITS | Encounter Summary ---
Author Organization [employer] Care Team Providers Care Certification Officer Name Role Phone Orin Bond APRN, CITLALLI Primary Care P tomasa Encounter Details Date Type Department Care Team (Latest Contact Info) Description 12/09/2022 Travel Social History Tobacco Use Types Packs/Day [...] Questionnaire-2 Score 0 11/30 9:00 AM CDT Fleming, Lilian K, V BELT INSPECTOR documented as of this encounter Plan of Treatment Not on file documented as of this encounter Visit Diagnoses Not on filedocumented in this encounter Care Teams Certification Officer Relationship Specialty Start Date End Date Orin Bond APRN, SAP BW BI DEVELOPER [address] [place] [address] PCP - General Advanced Practice Nurse 12/06/21 documented as of this encounter
--- OUTSIDE RECORDS SUMMARY | 2024-08-28 02:32 | XMS_ITS | Encounter Summary ---
Author Organization [facility] Address [address] [facility] [address] [place] [address] Phone Care Team Providers Care Combination Building Inspector Name Role Phone Orin Bond NP Primary Care Provide r Malia Field Unavailable Encounter Details Date Type Department Care Team (Late st Contact Info) Description 09/04/2023 Orders Only [facility] Surgery [address] [facility] [address] [place] [address] Yolanda Mosher MD PhD [address] [facility] [id number] [place] [address] POTS (postural orthostatic tachycardia syndrome) (Primary Dx) Social History Tobacco Use Types Packs/Day Years Used Date Smoking Tobacco: Never Smokeless Tobacco: Never Alcohol Use Standard Drinks/Week Comments No 0 (1 standard drink = 0.6 oz pur e alcohol) PHQ-2 Answer Date Recorded PHQ-2 Total Score (If total score is 3 or more points, staff should administer the PHQ-9) 0 03/05/2022 Personal Safety Answer Date Recorded Have you ever been in or are you currently in a harmful physical or emotional relationship or is someone making you feel afraid or unsafe? Denies 01/16/2023 Comments No Sex and Gender Information Value Date Recorded Sex Assigned at Not on file Legal Sex Female 9:03 PM CPA TAX Gender Identity Not on file Sexual Orientation Not on file documented as of this encounter Plan of Treatment Not on file documented as of this encounter Visit Diagnoses Diagnosis POTS (postural orthostatic tachycardia syndrome)- Primary Unspecified tachycardia documented in this encounter Care Teams Combination Building Inspector Relationship Specialty Start Date End Date Orin Bond NP [address] [place] [address] PCP - General Emergency Medicine 01/16/23 Malia Field, CARBURIZER [address] [place] [address] Neurologist 06/25/23 documented as of this encounter
--- OUTSIDE RECORDS SUMMARY | 2024-08-28 02:32 | XMS_ITS | Encounter Summary ---
Author Organization [facility] Healthcare Address [address] [place] [address] Care Team Providers Care Bean Dumper Name Role Phone Orin Bond NP Primary Care Provide r Malia Field ABE TEACHER Unavailable [phone] Reason for Visit * Auth/Cert (Routine) Specialty Diagnoses / Procedures Referred By Contac t Referred To Contact Diagnoses POTS (postural orthostatic tachycardia syndrome) POTS (postural orthostatic tachycardia syndrome) [G90.A] Procedures CHG VENOGRAPHY EXTREMITY UNILATERAL RS&I EXTREMITY VENOGRAPHY, iliac venogram Referral ID Status Reason Start Date Expiration Date Visits Re quested Visits Authorized [id number] 1 1 Encounter Details Date Type Department Care Team (Late st Contact Info) Description 10/09/2023 10:05 AM MANAGER MBA - 10/09/2023 11:35 AM MANAGER MBA Surgery [facility] [address] [place] [address] Yolanda Moshre MD PhD [address] [id number] [place] [address] EXTREMITY VENOGRAPHY, iliac venogram Surgery Details Date/Time Status Location OR Service Patient Class Case Cl ass Case Type Trauma Case? 10/09/2023 10:05 AM Posted [facility] CCL 02 Vascular Outpatient Elective Panel 1 Procedure LRB Anes Op Region Wound Class Comments EXTREMITY VENOGRAPHY, iliac venogram N/A Conscious Sedation Groin Surgeon Surgeon Role Service Panel Vicki Jack MD Fellow Vascular 1 Yolanda Mosher MD PhD Primary Vascular 1 documented in this encounter Social History Tobacco Use Types Packs/Day Years Used Date Smoking Tobacco: Never Smokeless Tobacco: Never Alcohol Use Standard Drinks/Week Comments No 0 (1 standard drink = 0.6 oz pur e alcohol) AUDIT-C Answer Date Recorded Q1: How often do you have a drink containing alcohol? Never 10/09/2023 Q2: How many drinks containi ng alcohol do you have on a typical day when you are drinking? Patient does not drink Q3: How often do you have si x or more drinks on one occasion? Never 10/09/2023 PHQ-2 Answer Date Recorded PHQ-2 Total Score [...] on file Legal Sex Female 9:03 PM MANAGER MBA Gender Identity Not on file Sexual Orientation Not on file documented as of this encounter Last Filed Vital Signs Vital Sign Reading Time Taken Comments Blood Pressure 104/57 10/09/2023 11:29 AM MANAGER MBA Pulse 71 10/09/2023 11:29 AM MANAGER MBA Temperature - - Respiratory Rate 17 10/09/2023 11:29 AM MANAGER MBA Oxygen Saturation 100% 10/09/2023 11:29 AM MANAGER MBA Inhaled Oxygen Concentration - - Weight - - Height 175.3 cm (5' 9 ) 10/09/2023 8:15 AM MANAGER MBA Body Mass Index - - documented in this encounter Discharge Instructions * Discharge Instructions* Lucila Alford RN - 10/09/2023 12:04 PM MANAGER MBA Discharge Instructions For Vascular (Femoral Approach) Please use this as a guide for caring for yourself at home after your procedure. Take it easy for the next few days. Gentle walking on level ground is OK. You can eat your normal diet; remember to follow any diet restrictions your doctor has recommended. You may have some bruising of the skin near the puncture site. This is common. Remove the Band-aid or dressing on your groin tomorrow. You may shower tomorrow. Be careful to avoid slipping, your leg may be stiff. Conitnue your home medications on your regular schedule. Avoid the Following: Do not do strenuous or intense activities. Do not do aerobics. No stair stepping. No rowing. No Bicycling. Do not jog or run. No bowling, dancing, swimming, or sexual intercourse. If you are involvedin other activities, ask your nurse or doctor first if it is OK. Do not sit or soak in a bath, hot tub, pool of water, or go swimming. Do not lift anything heavier than 5lbs. Do not drive for the next 24 hrs. Do not make any legal decisions for the next 24 hours Avoid climbing stairs. If you must climb stairs, use your non-catheterized leg to go uup the step, and then bring the other leg up to the same step. Do not strain at bowel movements. If you tend to be constipated please start a stool softener that works for you. You may restart the above activities on October 12 Call your doctor immediately for any of the following rare but serious problems. If you are unable to reach your doctor go to the nearest Emergency Room. Bleeding from catheterization puncture site: apply direct pressure with a clean cloth. If the bleeding doesn???t stop with gentle pressure call 911. A knot, bruise, or lump that appears to be increasing in size or getting worse rather than disappearing. Your catheterized leg is cold, pale, or numb when compared to the opposite leg IV dye reactions are rare but can occur. If you develop a rash, hives, or itching of the skin or have throat tightness, notice swelling of the tongue or lips you may be having a dye reaction. For routine questions or concerns regarding your care after your catheterization please feel free to call us. From 7am-5pm M-F call our Outpatient Nurse Coordinators at [phone]. If you need to speak to someone after 5pm please call [facility] at [phone] and ask the scalper operator topage the Vascular Fellow telephone order clerk room service. GER MBA documented in this encounter Medications at Time of Discharge Lo Loestrin Fe 1 mg-10 mcg (24)/10 mcg (2) tablet per tablet TAKE 1 TABLET BY MOUTH EVERY DAY 84 tablet 3 03/25/2022 predniSONE (DELTASONE) 50 mg tabletIndication s:pre medicate for allergy to contrast 50mg P.O. to be taken 19hrs, 13hrs, 7hrs, and 1 hr prior to scheduled appointment time 4 tablet 09/05/2023 documented as of this encounter Discharge Disposition Disposition Code Departure Means Destination Comment s Discharge to home or self care documented in this encounter H&P Notes * Vicki Jack MD - 10/09/2023 9:27 AM CST I have reviewed the H&P, examined the patient, and endorse the findings as written. Plan of Care : Based on the above findings, I consider Yomaira Ford to be an acceptable risk for: Procedure(s): EXTREMITY VENOGRAPHY, iliac venogram Cosigned by Yolanda Mosher MD PhD at 10/09/2023 9:44 AM MANAGER MBA GER MBA GER MBA Source Note - Yolanda Mosher MD PhD - 09/18/2023 11:45 AM MANAGER MBA Patient: Yomaira Ford Date of : 1990 Date of Service: 09/18/2023 CONSULTATION Consultation at the request of Caroline Marsh MD for an opinion regarding pelvic venous congestion . I have personally taken a history, examined the patient and determined the assessment and plan as outlined below. CHIEF COMPLAINT: Chief Complaint Patient presents with New Patient POTS HISTORY OF PRESENT ILLNESS: Yomaira Ford is a 33 y.o. female patient of Caroline Marsh MD with history of POTS who was referred to vascular surgery Clinic given her left lower extremity and left pelvic symptoms. Patient reports that she has pain that is predominantly in the left pelvis thatextends to her left flank. She also endorses associated pain in her left buttock that she states feels like he has a big bruise or hematoma there. She has noted an associated varicosity on her buttock given the pain. Patient reports that she also has some significant purplish discoloration intermittently with bulging veins in her left lower extremity. She states that these symptoms are not present today. She endorses that her symptoms also get worse during menstruation. Patient reports that hersymptoms started in December of 2022. She has tried compression stockings which do help to some extent. She denies any history of clotting or bleeding disorders. Patient inquired as to whether any vasocons trictor prescribe for her POTS disease would be problematic with her potential venous issues. Past Medical History: Diagnosis Date HX OTHER MEDICAL Hx chronic dysuria HX OTHER MEDICAL management; Outcome: Live infant HX OTHER MEDICAL ; Outcome: Live HX OTHER MEDICAL ; Outcome: 41 Weeks week 8lb(s) 9 oz HX OTHER MEDICAL ; Outcome: 41 Weeks week 8 lb(s) 2 oz Female HX OTHER MEDICAL ; Outcome: 40W0D week 7lb(s) 11 oz Male Past Surgical History: Procedure Laterality Date MOLE REMOVAL back/ benign OTHER SURGICAL HISTORY Hx chronic dysuria: Abx tx; responded to zyrtec OTHER SURGICAL HISTORY 2013 : OTHER SURGICAL HISTORY 2013 : OTHER SURGICAL HISTORY 2010 : OTHER SURGICAL HISTORY 2016 : 8 hr labor TONSILLECTOMY Family History Problem Relation Age of Onset Hypertension Mother Hypertension; Asthma Father Asthma; Diabetes Maternal Grandfather Diabetes mellitus; Cancer Maternal Grandfather Cancer; Colon cancer Maternal Grandfather Cancer, colon; Anemia Brother Anemia; Osteoporosis Maternal Grandmother Osteoporosis; Social History Tobacco Use Smoking status: Never Smokeless tobacco: Never Substance and Sexual Activity Drug use: No Sexual activity: Yes Partners: Male Alcohol Use: Not on file Allergies as of 09/18/2023 - Reviewed 09/18/2023 Allergen Reaction Noted Gadoteridol Hives, Itching, and Rash 03/26/2023 Iodinated contrast media Hives 08/22/2023 REVIEW OF SYSTEMS: All other systems were reviewed and otherwise negative. The patient???s vascular health history was reviewed and signed by me dated 09/18/2023. PHYSICAL EXAMINATION: VITAL SIGNS: Vitals BP 117/70 Pulse 80 Ht 175.3 cm (5' 9 ) Wt 72.6 kg (160 lb) BMI 23.63 kg/m?? HENT: Normocephalic and atraumatic. Extraocular movements are intact. EYES: Pupils are equal and reactive to light bilaterally. NECK: Supple with no lymphadenopathy CHEST: Symmetric chest expansion with no accessory muscle usage HEART: Regular rate and rhythm. ABDOMEN: Soft, nontender, nondistended. VASCULAR: Palpable radial and pedal pulses. MUSCULOSKELETAL: Left lower extremity is non edematous on exam today NEURO: Grossly intact motor and sensory exam. SKIN: No visible rashes. No foot or ankle wounds noted. No discoloration noted on exam today. VASCULAR LABS: I personally reviewed the lower extremity reflex testing demonstrates no reflux or DVT in the bilateral lower extremities. RADIOLOGY: I personally reviewed the CT venogram which demonstrates dilated veins throughout her abdomen. She does have a notable constriction of her left renal vein consistent with nutcracker syndrome, though she will require further evaluation for diagnosis. I do not think that her CT scan is suggestive of May- Thurner type picture, but she certainly has some narrowing as a result of her right common iliac vein. ASSESSMENT/PLAN: In my opinion, Yomaira Ford is a 33 y.o. female patient with history of POTS who now presents for evaluation of left pelvic and lower extremity symptoms that are potentially suggestive of a pelvicvenous congestion syndrome. She had reflux testing that was normal but her CT scan does shows some compression of the left renal vein by the SMA, which could be consistent with a Nutcracker syndrome.I discussed with the patient that the next step for evaluation would be performing a venogram in which we could take diagnostic images with contrast dye, perform pressure measurements across the leftrenal vein, as well as perform intravascular ultrasound if necessary. This further testing will be necessary in order to determine any hemodynamically significant venous obstruction. We will also be able to evaluate for any May-Thurner pathology if present. Patient voiced her understanding in his agreement to proceed. We will plan on performing the procedure under conscious sedation, and we will set her up in the upcoming weeks. I will also evaluate whether there is any concern about using vasoc onstrictors for POTS in the setting of other potential venous troubles. GER MBA documented in this encounter Nursing Notes * Lloyd Hernandez RN - 10/09/2023 8:37 AM CST Patient stated that she was feeling light headed right after getting an IV placed. Called Nurses station for assistance and Dr Arshad came to bedside and ordered atropine and was administered as ordered. Patient's heart rate is now 63 and blood pressure is 95/60. GER MBA GER MBA documented in this encounter Miscellaneous Notes * Perioperative Nursing Note - Lucila Alford RN - 10/09/2023 2:25 PM MANAGER MBA Patient took a nap post bolus, woke up stating she felt much better. Ambulated to restroom, voided.Cath site c/d/I, no signs of bleeding or hematoma. Patient OK to DC per . IV removed. Belongings returned. AVS reviewed and signed by patient. Patient discharged via wheelchair with . GER MBA * Perioperative Nursing Note - Lucila Alford RN - 10/09/2023 12:55 PM MANAGER MBA Post ambulation patient became lightheaded. Patient laid back at with HOB at 30. After a few minutes patient stated she was still feeling dizzy. BP 86/51. HR 58-62. Patient placed in trendelenburg. notified, 500 ml bolus of normal saline ordered. Patient asked for salt to dissolve under her tongue. GER MBA * Op Note - Yolanda Mosher MD PhD - 10/09/2023 9:50 AM CST OPERATIVE REPORT SURGEON Yolanda Mosher MD, PhD EMPLOYMENT ADJUDICATOR [employer] ANESTHESIA Conscious sedation and local PREOPERATIVE DIAGNOSIS Left lower extremity venous insufficiency POSTOPERATIVE DIAGNOSIS same NAME OF OPERATION 1. Left iliocaval venongram 2. Left renal venogram 3. Left renal vein pressure measurements INDICATIONS FOR PROCEDURE Yomaira Ford is a 33 y.o. patient with h/o POTS who now presents for evaluation of left lower extremity venous insufficiency, with concern for possible not correct her or May-Thurner syndrome. I had a discussion of the risk and benefits with the patient, and they agreed to proceed. Risks and benefits of the procedure have been reviewed with the patient including , myocardial infarction, stroke, renal insufficiency and renal failure, allergic reaction, bleeding, infection, thrombosis, embolism, and other complications which could result in the need additional endovascular procedures, surgical intervention, and amputation. All the patient's questions were answered and informed consent was signed. OPERATIVE FINDINGS Widely patent left ilocaval venous system. Widely patent left renal vein with brisk washout. Mild to no pressure differential across the left renal vein into the IVC. Apparent occlusion of the left gonadal vein. DESCRIPTION OF PROCEDURE A modified Seldinger technique was used to obtain venous access at left common femoral vein under ultrasound guidance. A printed photographic image was obtained and placed on the patient???s [facility] hospital chart after documenting flow in the vessel and the needle was seen puncturing the wall ofthe vein. A 5 [place]ican venous sheath was introduced, and a diagnostic ileo caval venogram was performed which demonstrated no flow-limiting lesions. We then proceeded to perform a cavogram to identify the renal veins, and we performed 3rd order cannulation of the left renal vein using guidewire and catheter. Renal venogram was performed, which demonstrated brisk washout to the cava. Pressure measurements were then transduced across the left renal vein to the IVC, with pressures of 3 to 0 on 1st pressure transduction and 2 to 2 on the 2nd pressure transduction measurement. We then withdrew our guidewire, catheter, and sheath, and manual pressure was held for hemostasis. The patient was awakened and transported to the recovery area. SPECIMENS REMOVED None. ESTIMATED BLOOD LOSS Minimal. INTRAOPERATIVE FLUIDS 200 cc. COUNTS All sponge, instrument, needle counts were correct at the end of the procedure. CONDITION ON DISCHARGE FROM OPERATING ROOM Stable. CONSCIOUS SEDATION I provided direct [id number] monitoring of conscious sedation which was administered by an independent trained nurse using fentanyl/versed for 40 minutes. PRESENCE STATEMENT I was present for the entire operation. EXPELLER WORKER MEASURES The patient received 2 g of Ancef within 60 minutes of procedure time.We utilized approximately 20 cc of Optiray contrast and fluoroscopy time was 12 minutes (99 mGy). GER MBA * Op Note - Yolanda Mosher MD PhD - 10/09/2023 9:50 AM CST OPERATIVE REPORT SURGEON Yolanda Mosher MD, PhD EMPLOYMENT ADJUDICATOR WILLIE Lawler ANESTHESIA Conscious sedation and local PREOPERATIVE DIAGNOSIS 1. Chronic left pelvic and flank pain 2. POTS POSTOPERATIVE DIAGNOSIS 1. Chronic left pelvic and flank pain 2. POTS NAME OF OPERATION 1. Left common femoral vein puncture under ultrasound guidance with placement of a 5 [place] sheath 2. Diagnostic left ileo caval venogram and left renal venogram 3. Left renal vein pressure transduction 4. Selective left renal vein 3rd order cannulation INDICATIONS FOR PROCEDURE Yomaira Ford is a 33 y.o. patient who has developed left lower extremity edema and discolorationas well as chronic left pelvic and leg pain. I had obtain venous testing, including reflux testing and CT venogram, which was not diagnostic of any particular condition, but warranted further evaluation to determine if there was any nutcracker physiology. I had a discussion of the risk and benefitswith the patient, and they agreed to proceed. Risks and benefits of the procedure have been reviewed with the patient including , myocardial infarction, stroke, renal insufficiency and renal failure, allergic reaction, bleeding, infection, thrombosis, embolism, and other complications which could result in the need additional endovascular procedures, surgical intervention, and amputation. All the patient's questions were answered and informed consent was signed. OPERATIVE FINDINGS Ileo caval venogram demonstrated widely patent iliac vein on the left with brisk washout. Left renal vein demonstrated brisk washout without apparent constriction on angiogram. Renal vein pressures were transduced and the gradient from the renal vein was 3 to 0 on initial attempt and 4 to 3 on repeat attempts. Occluded left gonadal vein. Unable to selectively catheterize the left gonadal vein, and I do not see clear evidence of washout from that vein. DESCRIPTION OF PROCEDURE A modified Seldinger technique was used to obtain venous access at the interal jugular vein level ultrasound guidance. A printed photographic image was obtained and placed on the patient???s [facility] hospital chart after documenting flow in the vessel and the needle was seen puncturing the wall ofthe vein. 5 [place] venous sheath was placed, and diagnostic left iliac venogram was performed, which demonstrated excellent washout through the left iliac venous system. Guidewire and catheter were used to cannulate the inferior vena cava, and selective left renal vein catheterization was performed. Diagnostic left renal venogram demonstrated excellent flow through the left renal vein into the IVC. We positioned a single lumen catheter in the left renal vein and connected this to pressure bag to record pressure measurements. Pressure measurements were repeated for an additional catheterization of the left renal vein. I attempted to select the left gonadal vein. The catheter was positioned directly within the orifice, but no wire would track. Angiogram did not demonstrate clear washout from this gonadal vein. We then completed the procedure by removing the 5 [place] venous sheath and holding manual pressure for hemostasis. The patient was transported in stable condition to the recovery area. SPECIMENS REMOVED None. ESTIMATED BLOOD LOSS Minimal. INTRAOPERATIVE FLUIDS 100 cc. COUNTS All sponge, instrument, needle counts were correct at the end of the procedure. CONDITION ON DISCHARGE FROM OPERATING ROOM Stable. CONSCIOUS SEDATION I provided direct [id number] monitoring of conscious sedation which was administered by an independent trained nurse using Fentanyl/ Versed for 40 minutes. PRESENCE STATEMENT I was present for the entire operation. EXPELLER WORKER MEASURES The patient received 2 g of Ancef within 60 minutes of procedure time.We utilized approximately 40 cc of Optiray contrast and fluoroscopy time was 12 minutes (99 mGy). GER MBA * Pre-Sedation Documentation - Vicik Jack MD - 10/09/2023 9:27 AM CST History of sedation/Anesthesia complications:Unknown Current Facility-Administered Medications Medication Dose Route Frequency Provider Last Rate Last Admin sodium chloride 0.9% infusion 30 mL/hr intravenous Continuous Yolanda Mosher MD PhD 30 mL/hr at 10/09/23850 30 mL/hr at 10/09/23 08 Laboratory review: Lab results in the last 12 hours: Recent Results (from the past 12 hour(s)) POCT hCG, urine Collection Time: 10/09/23 8:25 AM Result Value Ref Range HCG, ur, POC Negative Negative Lot Number [id number] QC Backgroud Clear Acceptable QC Control Line Acceptable CBC with auto differential Collection Time: 10/09/23 8:35 AM Result Value Ref Range WBC 4.9 3.8 - 9.9 K/cumm Hgb 11.5 (L) 11.9 - 15.5 g/dL Hct 33.1 (L) 35.6 - 45.5 % Plt 195 150 - 400 K/cumm MPV 9.8 9.1 - 12.3 fL RBC 3.62 (L) 3.90 - 5.20 M/cumm MCV 91.4 81.3 - 96.4 fL MCH 31.8 27.1 - 33.3 pg MCHC 34.7 32.3 - 35.7 g/dL RDW CV 11.9 11.1 - 14.9 % RDW SD 40.1 35.7 - 48.1 fL NRBC abs 0.00 0.00 - 0.01 K/cumm POCT glucose Collection Time: 10/09/23 8:35 AM Result Value Ref Range Glucose, POC 85 70 - 199 mg/dL Differential, auto Collection Time: 10/09/23 8:35 AM Result Value Ref Range Neutrophil abs 2.2 1.5 - 6.5 K/cumm Imm gran abs 0.0 0.0 - 0.1 K/cumm Lymphocyte abs 2.1 0.8 - 3.3 K/cumm Monocyte abs 0.5 0.2 - 0.8 K/cumm Eosinophil abs 0.1 0.0 - 0.5 K/cumm Basophil abs 0.0 0.0 - 0.1 K/cumm Neutrophil pct 45.9 % Imm gran pct 0.2 % Lymphocyte pct 43.3 % Monocyte pct 9.2 % Eosinophil pct 1.2 % Basophil pct 0.2 % Current meds/Labs/Test Results that may affect sedation reviewed: Yes Last PO Intake: Time of Last Liquid: 1899 Time of Last Solid: 1899 HEENT Exam: negative Sedation Plan: Moderate Sedation Plan ASA 2 - Mild systemic disease Sedation/Anesthesia Plan - moderate sedation Mallampati class: II. Risks, benefits, and alternatives discussed with patient and spouse. Cosigned by Yolanda Mosher MD PhD at 10/09/2023 9:44 AM MANAGER MBA GER MBA GER MBA documented in this encounter Plan of Treatment Not on file documented as of this encounter Procedures Procedure Name Priority Date/Time Associated Diagnosis Comments VENO EXTREM UNILAT S&I Routine 10/09/2023 11:13 AM MANAGER MBA POTS (postural orthostatic tachycardia syndrome) DIFFERENTIAL AUTO Routine 10/09/2023 8:3 5 AM MANAGER MBA POCT GLUCOSE DEVICE Routine 10/09/2023 8 :35 AM MANAGER MBA CBC WITH AUTO DIFFERENTIAL Routine 10/09/2023 8:35 AM MANAGER MBA POCT HCG, URINE Routine 10/09/2023 8:25 AM MANAGER MBA documented in this encounter Results * VENO EXTREM UNILAT S&I (10/09/2023 11:13 AM MANAGER MBA) Anatomical Region Laterality Modality X-Ray Angiograph y Narrative 10/09/2023 11:15 AM MANAGER MBA Please see OpNote for result. us Yolanda Mosher MD PhD CV CARDIAC CATH [place] OCEDURES Final Result * Differential, auto (10/09/2023 8:35 AM MANAGER MBA) Neutrophil abs 2.2 1.5 - 6.5 K/cumm [facility] Imm gran abs 0.0 0.0 - 0.1 K/cumm [facility] Lymphocyte abs 2.1 0.8 - 3.3 K/cumm [facility] Monocyte abs 0.5 0.2 - 0.8 K/cumm [facility] Eosinophil abs 0.1 0.0 - 0.5 K/cumm [facility] Basophil abs 0.0 0.0 - 0.1 K/cumm [facility] Neutrophil pct 45.9 % [facility] Comment: Interpretive Data Percent cell count reference ranges are not reported, since discordance with absolute values may lead to misinterpretation of CBC data. Current Interpretive Data was last revised on 2017. Imm gran pct 0.2 % [facility] Comment: Interpretive Data Percent cell count reference ranges are not reported, since discordance with absolute values may lead to misinterpretation of CBC data. Current Interpretive Data was last revised on 2017. Lymphocyte pct 43.3 % [facility] Comment: Interpretive Data Percent cell count reference ranges are not reported, since discordance with absolute values may lead to misinterpretation of CBC data. Current Interpretive Data was last revised on 2017. Monocyte pct 9.2 % [facility] Comment: Interpretive Data Percent cell count reference ranges are not reported, since discordance with absolute values may lead to misinterpretation of CBC data. Current Interpretive Data was last revised on 2017. Eosinophil pct 1.2 % [facility] [facility] Comment: Interpretive Data Percent cell count reference ranges are not reported, since discordance with absolute values may lead to misinterpretation of CBC data. Current Interpretive Data was last revised on 2017. Basophil pct 0.2 % [facility] Comment: Interpretive Data Percent cell count reference ranges are not reported, since discordance with absolute values may lead to misinterpretation of CBC data. Current Interpretive Data was last revised on 2017. Blood 10/09/2023 8:35 AM MANAGER MBA 10/09/2023 8:42 AM MANAGER MBA us Yolanda Mosher MD PhD LAB BLOOD ORDERABL ES Final Result [facility] [place] [address] * POCT glucose (10/09/2023 8:35 AM MANAGER MBA) Glucose, POC 85 70 - 199 mg/dL [facility] Blood 10/09/2023 8:35 AM MANAGER MBA 10/09/2023 8:35 AM MANAGER MBA us Yolanda Mosher MD PhD LAB POCT ORDERABLE S - DEVICE Final Result Performing Organization Address [facility] de Phone Number [facility] Department [place] [address] * (ABNORMAL) CBC with auto differential (10/09/2023 8:35 AM MANAGER MBA) [facility] WBC 4.9 3.8 - 9.9 K/cumm [facility] Hgb 11.5(L) 11.9 - 15.5 g/dL [facility] Hct 33.1(L) 35.6 - 45.5 % [facility] Plt 195 150 - 400 K/cumm [facility] MPV 9.8 9.1 - 12.3 fL [facility] RBC 3.62(L) 3.90 - 5.20 M/cumm [facility] MCV 91.4 81.3 - 96.4 fL [facility] MCH 31.8 27.1 - 33.3 pg [facility] MCHC 34.7 32.3 - 35.7 g/dL [facility] RDW CV 11.9 11.1 - 14.9 % [facility] RDW SD 40.1 35.7 - 48.1 fL [facility] NRBC abs 0.00 0.00 - 0.01 K/cumm [facility] Blood 10/09/2023 8:35 AM MANAGER MBA 10/09/2023 8:42 AM MANAGER MBA us Yolanda Mosher MD PhD LAB BLOOD ORDERABL ES Final Result Performing Organization Address City/[facility]/ZIP Co de Phone Number [facility] Department [place] [address] * POCT hCG, urine (10/09/2023 8:25 AM MANAGER MBA) [facility] HCG, ur, POC Negative Negative Lot Number [id number] QC Backgroud Clear Acceptable QC Control Line Acceptable Urine 10/09/2023 8:25 AM MANAGER MBA Yolanda Mosher MD PhD POINT OF CARE TEST ORDERABLES Final Result documented in this encounter Visit Diagnoses Diagnosis POTS (postural orthostatic tachycardia syndrome)- Primary Unspecified tachycardia POTS (postural orthostatic tachycardia syndrome) Unspecified tachycardia documented in this encounter Admitting Diagnoses Diagnosis POTS (postural orthostatic tachycardia syndrome) Unspecified tachycardia documented in this encounter Administered Medications Inactive Administered Medications - up to 3 most recent administrations Medication Order MAR Action Action Date Dose Rate Site atropine injection 0.5 mg 0.5 mg, intravenous, Administer over 1 Minutes, Once, On Mildred 10/09/23 at 0915, For 1 dose, Pre-Procedure (CV) Given 10/09/2023 8:36 AM MANAGER MBA 0.5 mg fentaNYL (SUBLIMAZE) preservative free injection Code/trauma/sedation medication, Starting on Mildred 10/09/23 at 0959, Intra-Procedure (CV) Given 10/09/2023 10:36 AM MANAGER MBA 25 mcg Given 10/09/2023 9:59 AM MANAGER MBA 25 mcg ioversoL (OPTIRAY 350) injection Code/trauma/sedation medication, Starting on Mildred 10/09/23 at 1100, Intra-Procedure (CV) Given 10/09/2023 11:00 AM MANAGER MBA 20 mL lidocaine (XYLOCAINE) 5 mg/mL (0.5 %) preservative free injection Code/trauma/sedation medication, Starting on Mildred 10/09/23 at 1010, Intra-Procedure (CV), Indications: Administration of Local AnesthesiaIndications:Administration of Local Anesthesia Given 10/09/2023 10:10 AM MANAGER MBA 10 mL Left Groin midazolam (VERSED) 2 mg/2 mL preservative free injection Administer over 2 Minutes, Code/trauma/sedation medication, Starting on Mildred 10/09/23 at 0959, Intra-Procedure (CV) Given 10/09/2023 10:36 AM MANAGER MBA 1 mg Given 10/09/2023 9:59 AM MANAGER MBA 1 mg sodium chloride 0.9% bolus 500 mL 500 mL, intravenous, Once, On Mildred 10/09/23 at 1330, For 1 dose New Bag 10/09/2023 12:45 PM MANAGER MBA 500 mL sodium chloride 0.9% infusion 30 mL/hr, intravenous, Continuous, Starting on Mildred 10/09/23 at 0930, Pre-Procedure (CV) New Bag 10/09/2023 8:51 AM MANAGER MBA 30 mL/hr 30 mL/hr sodium chloride 0.9% infusion 250 mL/hr, intravenous, Once, On Mildred 10/09/23 at 0930, For 1 dose, Pre-Procedure (CV) New Bag 10/09/2023 8:51 AM MANAGER MBA 250 mL/hr 250 mL /hr documented in this encounter Active and Recently Administered Medications Times are shown in MANAGER MBA. Scheduled Medication Order 10/07/2023 10/08/2023 10/09/2023 atropine injection 0.5 mg (COMPLETED) 0.5 mg, intravenous, Administer over 1 Minutes, Once, On Mildred 24 at 0915, For 1 dose, Pre-Procedure (CV) 0836 (Given - Provid er: Lloyd Hernandez RN) sodium chloride 0.9% bolus 500 mL (COMPLETED) 500 mL, intravenous, Once, On Mildred 24 at 1330, For 1 dose 1245 (New Bag - Prov ider: Lucila Alford RN) sodium chloride 0.9% infusion (COMPLETED) 250 mL/hr, intravenous, Once, On Mildred 24 at 0930, For 1 dose, Pre-Procedure (CV) 0851 (New Bag - Prov ider: Lloyd Hernandez, AVTAR) Continuous Medication Order 10/07/2023 10/08/2023 10/09/2023 sodium chloride 0.9% infusion 30 mL/hr, intravenous, Continuous, Starting on Mildred 24 at 0930, Pre-Procedure (CV) 0851 (New Bag - Prov ider: Lloyd Hernandez RN)1844 (Due: Stopped) PRN Medication Order 10/07/2023 10/08/2023 10/09/2023 fentaNYL (SUBLIMAZE) preservative free injection (CANCELED) Code/trauma/sedation medication, Starting on Mildred 10/09/23 at 0959, Intra-Procedure (CV) 0959 (Given - Provid er: Kristin Childers RN)1036 (Given - Provider: Kristin Childers RN) ioversoL (OPTIRAY 350) injection (CANCELED) Code/trauma/sedation medication, Starting on Mildred 10/09/23 at 1100, Intra-Procedure (CV) 1100 (Given - Provid er: Yolanda Mosher MD PhD) lidocaine (XYLOCAINE) 5 mg/mL (0.5 %) preservative free injection (CANCELED) Code/trauma/sedation medication, Starting on Mildred 10/09/23 at 1010, Intra-Procedure (CV), Indications: Administration of Local Anesthesia 1010 (Given - Provid er: Yolanda Mosher MD PhD) midazolam (VERSED) 2 mg/2 mL preservative free injection (CANCELED) Administer over 2 Minutes, Code/trauma/sedation medication, Starting on Mildred 10/09/23 at 0959, Intra-Procedure (CV) 0959 (Given - Provid er: Kristin Childers RN)1036 (Given - Provider: Kristin Childers RN) documented in this encounter Orders Nursing Count Last Ordered Date First Orde red Date DISCHARGE INSTRUCTIONS 1 10/09/2023 Discharge Count Last Ordered Date First Orde red Date DISCHARGE PATIENT 1 10/09/2023 documented in this encounter Care Teams Bean Dumper Relationship Specialty Start Date End Date Orin Bond NP [address] [place] [address] PCP - General Emergency Medicine 01/16/23 Malia Field, ABE TEACHER [address] [place] [address] Neurologist 06/25/23 documented as of this encounter
--- OUTSIDE RECORDS SUMMARY | 2024-08-28 02:32 | XMS_ITS | Referral Summary ---
[facility] Address [address] [place] [address] Care Team Providers Care Plc Programmer Name Role Phone Orin Bond NP Primary Care Provide r Malia Field PROCESS ARCHITECT Unavailable [phone] Allergies Active Allergy Reactions Criticality Noted Date Comments Gadoteridol Hives,Itching,Rash Medium 03/26/2023 Pt received Prohance 16ml. Itchy throat, rash, and hives developed within a few minutes. Dr Hairston examined patient. Patient held for 30 minutes, no worsening symptoms. 06/06/23-pt completed MRI/MRA Brain & Neck w/wo using [employer] MRI contast- premedicated 13 hour regimen successfully with no issues Medications Lo Loestrin Fe 1 mg-10 mcg (24)/10 mcg (2) tablet per tablet TAKE 1 TABLET BY MOUTH EVERY DAY 84 tablet 3 2 Active predniSONE (DELTASONE) 50 mg tabletIndicatio ns:pre medicate for allergy to contrast 50mg P.O. 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 No pathologic diagnosis 01/15/2014 Overview (12/05/2016): No diagnosis Urinary tract infection 05/17/2010 Dysuria 05/17/2010 Immunizations Name Administration Dates Next Due Influenza, Quadrivalent, Spl it, Preservative Free, Intramuscular 07/12/2021,07/05/2016 Varicella 11/29/2016 Social History Tobacco Use Types Packs/Day Years [...] on file Legal Sex Female 9:03 PM CONFERENCE ORGANIZER Gender Identity Not on file Sexual Orientation Not on file Last Filed Vital Signs Vital Sign Reading Time Taken Comments Blood Pressure 108/71 10/30/2023 9:53 AM CONFERENCE ORGANIZER Pulse 67 10/30/2023 9:53 AM CONFERENCE ORGANIZER Temperature 36.8 ??C (98.2 ??F) 08/22/2023 4:33 PM CS T Respiratory Rate 25 10/09/2023 2:05 PM CONFERENCE ORGANIZER Oxygen Saturation 100% 10/09/2023 2:05 PM CONFERENCE ORGANIZER Inhaled Oxygen Concentration - - Weight 72.6 kg (160 lb) 10/30/2023 9:53 AM CONFERENCE ORGANIZER Height 175.3 cm (5' 9 ) 10/30/2023 9:53 AM CONFERENCE ORGANIZER Body Mass Index 23.63 10/30/2023 9:53 AM CONFERENCE ORGANIZER Plan of Treatment Not on file Procedures Procedure Name Priority Date/Time Associated Diagnosis Comments PAP AND HIGH RISK HPV, REFLEX TO GENOTYPING Routine 03/05/2022 3:28 PM CDT Well woman exam SERUM HEPATITIS C AB Routine 06/29/2016 6:20 AM CDT from Last 3 Months or Most Recently Relevant to Health Maintenance Results * Pap and High Risk HPV, reflex to Genotyping (03/05/2022 3:28 PM CDT) CLINICAL INFORMATION: [facility] Comment:Information not prov ided LMP [facility] Comment:[phone] Previous Pap [facility] Comment:INFORMATION NOT PROV IDED Prev. Bx [facility] Comment:INFORMATION NOT PROV IDED SOURCE: [facility] Comment:Cervix, Endocervix Pap, specimen adequacy [facility] Comment: Satisfactory for evaluation. Endocervical/transformation zone component present. HPV interp [facility] Comment:Negative for intraep ithelial lesion or malignancy. Marketing Budget Analyst [facility] Comment: JAF, CT(ASCP) CT Screening Location: [place] [address] [place] [address] Review cheesemaker helper [facility] Comment: DDS, CT(ASCP) CT screening location: [place] [address] [place] [address] Comment [facility] Comment: EXPLANATORY NOTE: The Pap is a screening test for cervical cancer. It is not a diagnostic test and is subject to false negative and false positive results. It is most reliable when a satisfactory sample, regularly obtained, is submitted with relevant clinical findings and history, and when the Pap result is evaluated along with historic and current clinical information. Human papillomavirus DNA, High Risk E6/E7 Not Detected NOT DETECTED [employer] [facility] Comment: Not Detected High Risk HPV types (16,18,31,33,35,39,45,51,52, 56,58,59,66,68) were not detected. Other HPV types which cause anogenital lesions may be present. The significance of the other types of HPV in malignant processes has not been established. Methodology: Real Time PCR ? Thin prep 03/05/2022 3:28 PM CDT 03/06/2022 12:40 AM CDT Danielle Zamudio STORE PROTECTION SPECIALIST LAB CYTOLOGY ORDERABLES F inal Result [facility] [address] [place] [address] [employer] [address] [place] [address] * Serum Hepatitis C ab (06/29/2016 6:20 AM CDT) HCV ab NON-REACTI VE NON-REACTI VE CDR HISTORICAL RESULTS Hepatitis signal to cutoff ratio 0.01 <1.00 CDR HISTORICAL RESULTS Serum 06/29/2016 6:20 AM CDT Narrative CDR HISTORICAL RESULTS - 07/01/2016 2:00 PM CDT Test performed at [facility] [place] [address] [place], [place] ??[address] Director: LAKEISHA CASAS DO,MPH Historical Provider LAB BLOOD ORDERABLES Adriana l Result CDR HISTORICAL RESULTS from Last 3 Months or Most Recently Relevant to Health Maintenance Insurance [employer] [facility] Advance Directives For more information, please contact: [phone] * Full Code (Latest Code Status on File) Date Activated Date Inactivated Comments 10/09/2023 11:52 AM 10/09/2023 6:44 PM Care Teams Plc Programmer Relationship Specialty Start Date End Date Orin Bond NP [address] [place] [address] PCP - General Emergency Medicine 01/16/23 Malia Field, PROCESS ARCHITECT [address] [place] [address] Neurologist 06/25/23
--- OUTSIDE RECORDS SUMMARY | 2024-08-28 02:32 | XMS_ITS | Encounter Summary ---
Author Organization [facility] Healthcare Address [address] [place] [address] Care Team Providers Care Farm Assistant Name Role Phone Orin Bond NP Primary Care Provide r Malia Field HEAD OF TRANSPORT LOGISTICS Unavailable [phone] Reason for Referral * Consultation (Routine) - Closed Specialty Diagnoses / Procedures Referred By Contac t Referred To Contact Vascular Surgery Diagnoses POTS (postural orthostatic tachycardia syndrome) Caroline Marsh MD Phone: tel: fax: Yolanda Mosher MD PhD [id number] [place] [address] Phone: tel: fax: Referral ID Status Reason Start Date Expiration Date V isits Requested Visits Authorized [id number] Closed Specialty Services Required 09/04/2023 10/03/2024 1 1 Question Answer Please select the performing region: [facility] (All Locations) [[id number]] To provider: YOLANDA MOSHER [[id number]] # of visits: [address] Mosher, and she intends to arrange clinic visit with CT venogram a/p and lower extremity venous reflux testing. Thank you! ARCHITECT Encounter Details Date Type Department Care Team (Late st Contact Info) Description 09/04/2023 Orders Only [facility] and [facility] Transplant Heart [address] [facility] [phone] [place] [address] Mary York, RN POTS (postural orthostatic tachycardia syndrome) (Primary Dx) [...] on file Legal Sex Female 9:03 PM DEAL ARCHITECT Gender Identity Not on file Sexual Orientation Not on file documented as of this encounter Plan of Treatment Scheduled Referrals Name Type Priority Associated Diagnoses Orde r Schedule Ambulatory referral to Vascular Surgery Outpatient Referral Routine POTS (postural orthostatic tachycardia syndrome) Expected: 09/18/2023 (Approximate), Expires: 09/04/2024 documented as of this encounter Visit Diagnoses Diagnosis POTS (postural orthostatic tachycardia syndrome)- Primary Unspecified tachycardia documented in this encounter Care Teams Farm Assistant Relationship Specialty Start Date End Date Orin Bond NP [address] [place] [address] PCP - General Emergency Medicine 01/16/23 Malia Field, ZAHRA [address] [place] [address] Neurologist 06/25/23 documented as of this encounter
--- OUTSIDE RECORDS SUMMARY | 2024-08-28 02:32 | XMS_ITS | Encounter Summary ---
Author Organization [facility] Address [address] [place] [address] Phone Care Team Providers Care Car Hopper Name Role Phone Orin Bond NP Primary Care Provide r Malia Field Unavailable [phone] Reason for Referral * Cardiology (Routine) - Closed Specialty Diagnoses / Procedures Referred By Contac t Referred To Contact Diagnoses Palpitations Procedures ECG 12 lead Caroline Marsh MD Phone: tel: fax: [facility] (All Locations) Referral ID Status Reason Start Date Expiration Date Visits Re quested Visits Authorized [id number] Closed 06/25/2023 07/24/2024 1 1 Encounter Details Date Type Department Care Team (Late st Contact Info) Description 06/25/2023 9:00 AM CDT Office Visit [facility] Cardiology [address] Medicine 8th [place] [address] [place] [address] Caroline Marsh MD [address] [place] [address] POTS (postural orthostatic tachycardia syndrome) (Primary Dx); Palpitations Social History Tobacco Use Types Packs/Day Years [...] on file 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 Gender Identity Not on file Sexual Orientation Not on file documented as of this encounter Last Filed Vital Signs Vital Sign Reading Time Taken Comments Blood Pressure 107/69 06/25/2023 9:07 AM CDT Pulse 81 06/25/2023 9:07 AM CDT Temperature - - Respiratory Rate - - Oxygen Saturation 100% 06/25/2023 9:07 AM CDT Inhaled Oxygen Concentration - - Weight 70.8 kg (156 lb) 06/25/2023 9:07 AM CDT Height 175.3 cm (5' 9 ) 06/25/2023 9:07 AM CDT Body Mass Index 23.04 06/25/2023 9:07 AM CDT documented in this encounter Patient Instructions * Patient Instructions* Elzbieta Perrin MD - 06/25/2023 9:00 AM CDT For questions, concerns, or updates, please call the Heart Failure office at . Thank you! AVTAR Bernalamerican indian studies professor Failure/Cloth Winder Machine Operator for Dr. Caroline Marsh We think your symptoms are likely POTS. Plan for today: - Increase water intake to 3-4 L per day - Increase salt intake to at least 2 tablespoons per day - Increase walking activity 3 minutes per session, multiple times per day. Increase sessions by 1 minute per week to a goal of 20-30 minutes per session. Medicine changes: - No changes to medications Testing: - We will order blood tests Follow up: - Please follow up with your neurologist regarding migraine prevention medications as it may help with POTS syndrome. Miscellaneous: - Wear waist high compression garments documented in this encounter Progress Notes * Elzbieta Perrin MD - 06/25/2023 9:00 AM CDT Images from the original note were not included. Department of Medicine Cardiovascular Division Advanced Heart Failure/Cardiac Transplantation INITIAL OFFICE VISIT Date: 06/25/2023 Requesting Physician: Referral Reason for Consultation: Evaluation of POTS Chief Complaint: Palpitations History of Present Illness: Ms. Ford is a 33 y.o. female with no past medical history who presents with presyncope, palpitations, and dyspnea with exertion. Patient reports intermittent episodes of pre-syncope, palpitations, and dyspnea on exertion since 12/2022. She had a syncopal event preceded by palpitations and shortness of breath. They are typicallyset off by episodes of exertion or when moving from laying to standing. She underwent evaluation with a 48 hour holter monitor and TTE which were normal per patient. In 03/2023, she developed sudden onset left sided facial numbness, tingling, and increased fatigue. She denies bladder and bowel incontinence. She were referred to a neurologist during which she had an MRI/MRA which were negative for stroke and multiple sclerosis per patient. She has had 3 significant migraines (nausea, vision changes, light sensivity, and squeezing headache). She reports being highly debilitated from - 04/2023. She reports symptoms have improved with removal of processed foods including sugar and carbohydrates. She was formerly a highly active individual and is no longer able to participate in sports such as biking. She denies highly flexible joints. She has intermittently had swollen, erythematous joints inher hands. She reports a similar episode in 2018 when she was breast feeding. She had an episode of increased heart rates, palpitations, and pre-syncope for several months which resolved with slow reintroduction of exercise. Patient had a previous history of palipitations in 2018 at which time she underwent 30 day monitor and TTE which were relatively unremarkable. Review of Systems: All other systems negative except as indicated above Past Medical History: Past Medical History: Diagnosis Date HX OTHER MEDICAL Hx chronic dysuria HX OTHER MEDICAL management; Outcome: Live HX OTHER MEDICAL ; Outcome: Live infant HX OTHER MEDICAL ; Outcome: 41 Weeks week 8lb(s) 9 oz HX OTHER MEDICAL ; Outcome: 41 Weeks week 8 lb(s) 2 oz Female HX OTHER MEDICAL ; Outcome: 40W0D week 7lb(s) 11 oz Male Past Surgical History: Past Surgical History: Procedure Laterality Date OTHER SURGICAL HISTORY Hx chronic dysuria: Abx tx; responded to zyrtec OTHER SURGICAL HISTORY 2013 : OTHER SURGICAL HISTORY 2013 : OTHER SURGICAL HISTORY 2010 : OTHER SURGICAL HISTORY 2016 : 8 hr labor TONSILLECTOMY Family History: Family History Problem Relation Age of Onset Hypertension Mother Hypertension; Asthma Father Asthma; Diabetes Maternal Grandfather Diabetes mellitus; Cancer Maternal Grandfather Cancer; Colon cancer Maternal Grandfather Cancer, colon; Anemia Brother Anemia; Osteoporosis Maternal Grandmother Osteoporosis; M:Living F: Aristeo SCD: Sister, Age 4, Following a viral illness Social History: reports that she has never smoked. She has never used smokeless tobacco. She reports that she does not use drugs. 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 Itchy throat, rash, and hives developed within a few minutes. Dr Hairston examined patient. Patient held for 30 minutes, no worsening symptoms. 06/06/23-pt completed MRI[facility]- premedicated 13 hour regimen successfully with no issues Current Medications: Current Outpatient Medications on File Prior to Visit Medication Sig Dispense Refill estradioL (ESTRACE) 0.01 % (0.1 mg/gram) vaginal cream Apply Gm 1/2-1 to introitus and urethra at HS, 2-3x/week. 42.5 g 1 Lo Loestrin Fe 1 mg-10 mcg (24)/10 mcg (2) tablet per tablet TAKE 1 TABLET BY MOUTH EVERY DAY 84 tablet 3 No current facility-administered medications on file prior to visit. Physical Examination: Vital signs: Vitals BP 107/69 Pulse 81 Ht 175.3 cm (5' 9 ) Wt 70.8 kg (156 lb) SpO2 100% BMI 23.04 kg/m?? General: No acute distress or discomfort HEENT: Anicteric sclerae, moist mucous membranes, no thyromegaly Cardiovascular: RRR, Normal S1-2, no m/r/g Lungs: Clear to auscultation bilaterally; no wheezes, rhonchi, or rales Abdomen: Non-distended, normoactive bowel sounds, soft, non-tender to palpation, no hepatosplenomegaly Neuro: Alert, oriented, moves all extremities well Skin: No significant rashes/lesions Extremities: No edema, dry and warm Psych: Musculoskeletal: Normal mood and affect Negative Diagnostic Studies Labs: Chemistry Lab Results Component Value Date SODIUM 140 01/16/2023 POTASSIUM 3.7 01/16/2023 CHLORIDE 106 01/16/2023 CO2 24 01/16/2023 ANIONGAP 10 01/16/2023 BUNSER 13 01/16/2023 CREATININE 0.65 01/16/2023 GLUCOSE 78 01/16/2023 CALCIUM 9.1 01/16/2023 BILITOT 0.6 01/16/2023 PROTEIN 8.1 08/08/2015 ALBUMIN 4.2 01/16/2023 GFRNAA 119 01/16/2023 ALKPHOS 45 01/16/2023 AST 14 01/16/2023 ALT 9 01/16/2023 Lab Results Component Value Date WBC 6.8 01/16/2023 HGB 12.3 01/16/2023 HCT 36.8 01/16/2023 MCV 94.4 01/16/2023 LABPLAT 237 01/16/2023 No results found for: INR No results found for: NPROBNP Lab Results Component Value Date TRIG 33 11/07/2015 No results found for: HGBA1C 2021 cholesterol panel T Chol 142 LDL 68 HDL 64 Previous EK EKG Today: By my and Dr. Marsh's interpretation showed: sinus rhythm, non- specific T wave changes, o/w nl ECG. Previous Cardiac Studies: TTE: None DAILY: No priors [facility] Cath: No priors OSH Imagin TTE Report Normal LV size and function LV EF 60-65% RV normal size and function Normal atrial sizes Mild MR, no prolapse Mild TR, No other valve disease 2018 Holter Duration 30 days No A Fib Non-cardiac Imaging: None Assessment and Plan: # Palpitations # Dyspnea on exertion # Pre-syncope # Joint inflammation Patient reports a history of intermittent episodes of palpitations, dyspnea on exertion, and presyncope since 12/2022 which is similar to an episode in 2017 and 2021 in the post period and following a viral illness. In 2018, holter and TTE were unremarkable for pathology. She reports having an updated TTE and holter monitor which were both unremarkable. She has undergone brain imaging whichwas unremarkable for multiple sclerosis. TSH was WNL in 12/2022. She denies significant family history of cardiovascular disease. This seems most consistent with Postural tachycardia syndrome (PoTS) vs an autoimmune/inflammatory process. - We will further evaluate for autoimmune/inflammatory process with ESR, CRP, GEE, RF, ds-DNA, ANCA, SSA,SSB, Arron: Renin, ADH, - Counseled patient on the importance of increasing PO intake to 3-4 L per day, increasing salt intake to at least 2 tablespoons per day, use of high waisted compression stockings, and a regimen for walking. Also recommended research of other potential lifestyle modifications purported to have benefit for POTS patients. - We recommend continued reduction caffeine/alcohol intake - We also suggest following up with her primary neurologist regarding migraine prophylaxis as thereis data showing this may help with management of PoTS - We will work to obtain records of TTE Follow Up: Return in about 8 weeks (around 08/20/2023). Outpatient Orders: Orders Placed This Encounter Erythrocyte sedimentation rate CRP (cardiac risk) Anti-double stranded DNA abs Aldosterone/Renin Ratio ANTIDIURETIC HORMONE GEE screen Rheumatoid factor Sjogren's syndrome A ab Sjogren's syndrome B ab ECG 12 lead Thank you for allowing us to participate in this patient's care and please do not hesitate to contact us with any questions. Elzbieta Perrin MD Automotive Design Layout Drafter, [id number] 06/25/23 Cosigned by Caroline Marsh MD at 07/10/2023 10:23 AM SELENIUM PLANT OPERATOR NIUM PLANT OPERATOR Associated attestation - Caroline Marsh MD - 07/10/2023 10:23 AM SELENIUM PLANT OPERATOR Heart Failure/Transplant Cardiology Attending Addendum The patient was seen and examined with Dr. Perrin. All findings noted in the history and physical were confirmed by me personally and the noted amended as necessary. The assessment and plan weredeveloped collaboratively with Dr. Perrin. Patient with syndrome most consistent with POTS. No hyperlaxity to suggest Kavita Danlos. Some joint inflammation - autoimmune screening panel ordered. Education and support provided. Will avoid pharmacotherapy for now and attempt lifestyle modifications. Can attempt beta tristian therapy, midodrine, fludrocortisone or other pharmacotherapy if symptoms worsen again. Caroline Marsh MD, PhD engine head repairer Division of Cardiology [facility] ABI Certified Cardiology and Advanced Heart Failure and Transplant Cardiology [phone] documented in this encounter Plan of Treatment Scheduled Orders Name Type Priority Associated Diagnoses Orde r Schedule Aldosterone/Renin Ratio Lab Routine Palpitations POTS (postural orthostatic tachycardia syndrome) Expected: 06/25/2023, Expires: 06/25/2024 ANTIDIURETIC HORMONE Lab Routine Palpitations POTS (postural orthostatic tachycardia syndrome) Expected: 06/25/2023, Expires: 06/25/2024 GEE screen Lab Routine Palpitations POTS (postural orthostatic tachycardia syndrome) Expected: 06/25/2023, Expires: 06/25/2024 documented as of this encounter Procedures Procedure Name Priority Date/Time Associated Diagnosis Comments ECG 12-LEAD Routine 06/25/2023 Palpitations documented in this encounter Results * Sjogren's syndrome B ab (06/25/2023 10:45 AM CDT) Anti-SANDY, SS-B <0.2 <=0.9 Ab Index [facility] Comment: Interpretive Data Negative: < 1.0 Ab Index Positive: > or = 1.0 Ab Index Current interpretive data was last revised on 2016. Blood 06/25/2023 10:4 5 AM CDT 06/25/2023 11:03 AM CDT Caroline Marsh MD LAB BLOOD ORDERABLES Final Result [facility] [place] [address] * Sjogren's syndrome A ab (06/25/2023 10:45 AM CDT) Pathologist [facility] Anti-SANDY, SS-A <0.2 <=0.9 Ab Index [facility] Comment: Interpretive Data Negative: < 1.0 Ab Index Positive: > or = 1.0 Ab Index Current interpretive data was last revised on 2016. Blood 06/25/2023 10:4 5 AM CDT 06/25/2023 11:03 AM CDT us Caroline Marsh MD LAB BLOOD ORDERABLES Final Result Performing Organization Address City/[facility]/ZIP Co de Phone Number [facility] [place] [address] * Rheumatoid factor (06/25/2023 10:45 AM CDT) Pathologist [facility] Rheumatoid factor, quant <10.0 0.1 - 15.0 IUnits/mL [facility] Blood 06/25/2023 10:4 5 AM CDT 06/25/2023 11:03 AM CDT Caroline Marsh MD LAB BLOOD ORDERABLES Final Result [facility] [place] [address] * Anti-double stranded DNA abs (06/25/2023 10:45 AM CDT) [facility] dsDNA Ab 1.0 <=4.0 IUnits/mL [facility] Comment: Interpretive Data Negative: < or = 4 IUnits/mL Indeterminate: 5 - 9 IUnits/mL Positive: > or = 10 IUnits/mL Current interpretive data was last revised on 2017. Blood 06/25/2023 10:4 5 AM CDT 06/25/2023 11:03 AM CDT us Caroline Marsh MD LAB BLOOD ORDERABLES Final Result [facility] [address] * CRP (cardiac risk) (06/25/2023 10:45 AM CDT) [facility] hsCRP <0.50 mg/L [facility] Comment: Repeated and Verified Interpretive data Adult only - values greater than or equal to 10 mg/L are consistent with infection or inflammation. ?? Individuals with evidence of active infection, systemic inflammatory processes, or trauma should not be tested until these conditions have abated. When using HS CRP to assess cardiovascular risk, two measurements should be taken, two weeks apart (averaging results). ?? The CDC/AHA recommended the following HS CRP cut off points (tertiles) for CVD assessment. ? Adult low risk ? <1.0 mg/L Average risk ??1.0 - 3.0 mg/L High Risk ?>3.0 mg/L Current interpretive data was last revised on 2018. Blood 06/25/2023 10:4 5 AM CDT 06/25/2023 11:03 AM CDT us Caroline Marsh MD LAB BLOOD ORDERABLES Final Result [facility] [place] [address] * Erythrocyte sedimentation rate (06/25/2023 10:45 AM CDT) Erythrocyte sedimentation rate 15 1 - 20 mm/hr [facility] Blood 06/25/2023 10:4 5 AM CDT 06/25/2023 11:03 AM CDT Caroline Marsh MD LAB BLOOD ORDERABLES Final Result Performing Organization Address [facility] Co de Phone Number [facility] [place] [address] * ECG 12 lead (06/25/2023) Result [facility] Caroline Marsh MD ECG ORDERABLES Final Resu lt documented in this encounter Visit Diagnoses Diagnosis POTS (postural orthostatic tachycardia syndrome)- Primary Unspecified tachycardia Palpitations documented in this encounter Discontinued Medications Medication Sig Discontinue Reason Start Date End Da te estradioL (ESTRACE) 0.01 % (0.1 mg/gram) vaginal cream Apply Gm 1/2-1 to introitus and urethra at HS, 2-3x/week. Therapy completed 03/08/2022 07/10/2023 documented as of this encounter Care Teams Car Hopper Relationship Specialty Start Date End Date Orin Bond NP [address] [place] [address] PCP - General Emergency Medicine 01/16/23 Malia Field, MATRIX INSPECTOR [address] [place] [address] Neurologist 06/25/23 documented as of this encounter
--- OUTSIDE RECORDS SUMMARY | 2024-08-28 02:32 | XMS_ITS | Encounter Summary ---
Author Organization [facility] Healthcare Address [address] [place] [address] Care Team Providers Care Bariatric Program Coordinator Name Role Phone Orin Bond NP Primary Care Provide r Malia Field FRANCHISE SALES REPRESENTATIVE Unavailable Reason for Visit * Auth/Cert (Routine) Specialty Diagnoses / Procedures Referred By Contac t Referred To Contact Diagnoses POTS (postural orthostatic tachycardia syndrome) POTS (postural orthostatic tachycardia syndrome) [G90.A] Procedures CHG VENOGRAPHY EXTREMITY UNILATERAL RS&I EXTREMITY VENOGRAPHY, iliac venogram Referral ID Status Reason Start Date Expiration Date Visits Re quested Visits Authorized [id number] 1 1 Encounter Details Date Type Department Care Team (Late st Contact Info) Description 10/09/2023 7:51 AM REGIONAL OTR COMPANY DRIVER - 10/09/2023 2:44 PM REGIONAL OTR COMPANY DRIVER Hospital Encounter [facility] [address] [place] [address] Yolanda Mosher MD PhD [id number] [place] [address] POTS (postural orthostatic tachycardia syndrome) Discharge Disposition: Discharge to home or self care Social History Tobacco Use Types Packs/Day Years [...] on file Legal Sex Female 9:03 PM REGIONAL OTR COMPANY DRIVER Gender Identity Not on file Sexual Orientation Not on file documented as of this encounter Last Filed Vital Signs Vital Sign Reading Time Taken Comments Blood Pressure 103/55 10/09/2023 2:05 PM REGIONAL OTR COMPANY DRIVER Pulse 83 10/09/2023 2:05 PM REGIONAL OTR COMPANY DRIVER Temperature - - Respiratory Rate 25 10/09/2023 2:05 PM REGIONAL OTR COMPANY DRIVER Oxygen Saturation 100% 10/09/2023 2:05 PM REGIONAL OTR COMPANY DRIVER Inhaled Oxygen Concentration - - Weight - - Height 175.3 cm (5' 9 ) 10/09/2023 8:15 AM REGIONAL OTR COMPANY DRIVER Body Mass Index - - documented in this encounter Discharge Instructions * Discharge Instructions* Lucila Alford, AVTAR - 10/09/2023 12:04 PM REGIONAL OTR COMPANY DRIVER Discharge Instructions For Vascular (Femoral Approach) Please [...] bleeding doesn???t stop with gentle pressure call [phone]. A knot, bruise, or lump that appears [...] M-F call our Outpatient Nurse Coordinators at [phone]. If you need to speak to someone after 5pm please call [facility] at [phone] and ask the reconciliation machine operator topage the Vascular Fellow monitor car operator. [employer] DRIVER documented in this encounter Medications at Time [...] Mosher MD PhD at 10/09/2023 9:44 AM REGIONAL OTR COMPANY DRIVER ONAL OTR COMPANY DRIVER O[employer] OTR COMPANY DRIVER Source Note - Yolanda Mosher MD PhD - 09/18/2023 11:45 AM REGIONAL OTR COMPANY DRIVER Patient: Yomaira Ford Date of : 1990 [...] infant HX OTHER MEDICAL ; Outcome: Live infant [...] the setting of other potential venous troubles. [employer] OTR [employer] DRIVER documented in this encounter Nursing Notes * Lloyd Hernandez, RN - 10/09/2023 8:37 AM CST Patient stated that she was feeling light headed right after getting an IV placed. Called Nurses station for assistance and Dr Arshad came to bedside and ordered atropine and was administered as ordered. Patient's heart rate is now 63 and blood pressure is 95/60. ONAL OTR COMPANY DRIVER O[employer] OTR COMPANY DRIVER documented in this encounter Miscellaneous Notes * Perioperative Nursing Note - Lucila Alford RN - 10/09/2023 2:25 PM REGIONAL OTR COMPANY DRIVER Patient took a nap post bolus, woke up stating she felt much better. Ambulated to restroom, voided.Cath site c/d/I, no signs of bleeding or hematoma. Patient OK to DC per . IV removed. Belongings returned. AVS reviewed and signed by patient. Patient discharged via wheelchair with . [employer] O[employer] DRIVER * Perioperative Nursing Note - Lucila Alford RN - 10/09/2023 12:55 PM REGIONAL OTR COMPANY DRIVER Post ambulation patient became lightheaded. Patient laid back at with HOB at 30. After a few minutes patient stated she was still feeling dizzy. BP 86/51. HR 58-62. Patient placed in trendelenburg. notified, 500 ml bolus of normal saline ordered. Patient asked for salt to dissolve under her tongue. O[employer] O[employer] COMPANY DRIVER * Op Note - Yolanda Mosher MD PhD - 10/09/2023 9:50 AM CST OPERATIVE REPORT SURGEON Yolanda Mosher MD, PhD LEARNING AND DEVELOPMENT CONSULTANT WILLIE Lawler ANESTHESIA Conscious sedation and local [...] was obtained and placed [facility] the patient[facility] after documenting flow in the vessel and the needle was seen puncturing the wall ofthe vein. A 5 Chilean venous sheath was introduced, and a diagnostic [...] ROOM Stable. CONSCIOUS SEDATION I provided direct [id number] monitoring of conscious sedation which was administered by an independent trained nurse using fentanyl/versed for 40 minutes. PRESENCE STATEMENT I was present for the entire operation. SUPERVISOR SPECIAL SERVICES MEASURES The patient received 2 g of Ancef within 60 minutes of procedure time.We utilized approximately 20 cc of Optiray contrast and fluoroscopy time was 12 minutes (99 mGy). [employer] DRIVER * Op Note - Yolanda Mosher MD PhD - 10/09/2023 9:50 AM CST OPERATIVE REPORT SURGEON Yolanda Mosher MD, PhD LEARNING AND DEVELOPMENT CONSULTANT WILLIE Lawler ANESTHESIA Conscious sedation and local PREOPERATIVE DIAGNOSIS 1. Chronic left pelvic and flank pain 2. POTS POSTOPERATIVE DIAGNOSIS 1. Chronic left pelvic and flank pain 2. POTS NAME OF OPERATION 1. Left common femoral vein puncture under ultrasound guidance with placement of a 5 Chilean sheath 2. Diagnostic left ileo caval venogram [...] was obtained and placed on the patient???s [facility] hospital chart after documenting flow in the vessel and the needle was seen puncturing the wall ofthe vein. 5 Chilean venous sheath was placed, and diagnostic left [...] completed the procedure by removing the 5 Chilean venous sheath and holding manual pressure for hemostasis. The patient was transported in stable condition to the recovery area. SPECIMENS REMOVED None. ESTIMATED BLOOD LOSS Minimal. INTRAOPERATIVE FLUIDS 100 cc. COUNTS All sponge, instrument, needle counts were correct at the end of the procedure. CONDITION ON DISCHARGE FROM OPERATING ROOM Stable. CONSCIOUS SEDATION I provided direct [id number] monitoring of conscious sedation which was administered by an independent trained nurse using Fentanyl/ Versed for 40 minutes. PRESENCE STATEMENT I was present for the entire operation. SUPERVISOR SPECIAL SERVICES MEASURES The patient received 2 g of Ancef within 60 minutes of procedure time.We utilized approximately 40 cc of Optiray contrast and fluoroscopy time was 12 minutes (99 mGy). [employer] DRIVER * Pre-Sedation Documentation - Vicki Jack MD - 10/09/2023 9:27 AM CST History of sedation/Anesthesia complications:Unknown Current Facility-Administered Medications Medication Dose Route Frequency Provider Last Rate Last Admin sodium chloride 0.9% infusion 30 mL/hr intravenous Continuous Yolanda Mosher MD PhD 30 mL/hr at 10/09/23850 30 mL/hr at 10/09/23850 Laboratory review: Lab results in the last [...] Mosher MD PhD at 10/09/2023 9:44 AM REGIONAL OTR COMPANY DRIVER O[employer] OTR COMPANY DRIVER [employer] DRIVER documented in this encounter Plan of Treatment Not on file documented as of this encounter Procedures Procedure Name Priority Date/Time Associated Diagnosis Comments VENO EXTREM UNILAT S&I Routine 10/09/2023 11:13 AM REGIONAL OTR COMPANY DRIVER POTS (postural orthostatic tachycardia syndrome) DIFFERENTIAL AUTO Routine 10/09/2023 8:3 5 AM REGIONAL OTR COMPANY DRIVER POCT GLUCOSE DEVICE Routine 10/09/2023 8 :35 AM REGIONAL OTR COMPANY DRIVER CBC WITH AUTO DIFFERENTIAL Routine 10/09/2023 8:35 AM REGIONAL OTR COMPANY DRIVER POCT HCG, URINE Routine 10/09/2023 8:25 AM REGIONAL OTR COMPANY DRIVER documented in this encounter Results * VENO EXTREM UNILAT S&I (10/09/2023 11:13 AM REGIONAL OTR COMPANY DRIVER) Anatomical Region Laterality Modality X-Ray Angiograph y Narrative 10/09/2023 11:15 AM REGIONAL OTR COMPANY DRIVER Please see OpNote for result. us Yolanda Mosher MD PhD CV CARDIAC CATH [place] OCEDURES Final Result * Differential, auto (10/09/2023 8:35 AM REGIONAL [employer] COMPANY DRIVER) Neutrophil abs 2.2 1.5 - 6.5 K/cumm [facility] Imm gran abs 0.0 0.0 - 0.1 K/cumm [facility] Lymphocyte abs 2.1 0.8 - 3.3 K/cumm [facility] Monocyte abs 0.5 0.2 - 0.8 K/cumm [facility] Eosinophil abs 0.1 0.0 - 0.5 K/cumm [facility] Basophil abs 0.0 0.0 - 0.1 K/cumm [facility] Neutrophil pct 45.9 % [facility] Comment: Interpretive Data Percent cell count reference ranges are not reported, since discordance with absolute values may lead to misinterpretation of CBC data. Current Interpretive Data was last revised on 2017. Imm gran pct 0.2 % [facility] Comment: Interpretive Data Percent cell count reference ranges are not reported, since discordance with absolute values may lead to misinterpretation of CBC data. Current Interpretive Data was last revised on 2017. Lymphocyte pct 43.3 % [facility] Comment: Interpretive Data Percent cell count reference ranges are not reported, since discordance with absolute values may lead to misinterpretation of CBC data. Current Interpretive Data was last revised on 2017. Monocyte pct 9.2 % [facility] Comment: Interpretive Data Percent cell count reference ranges are not reported, since discordance with absolute values may lead to misinterpretation of CBC data. Current Interpretive Data was last revised on 2017. Eosinophil pct 1.2 % [facility] Comment: Interpretive Data Percent cell count reference ranges are not reported, since discordance with absolute values may lead to misinterpretation of CBC data. Current Interpretive Data was last revised on 2017. Basophil pct 0.2 % [facility] Comment: Interpretive Data Percent cell count reference ranges are not reported, since discordance with absolute values may lead to misinterpretation of CBC data. Current Interpretive Data was last revised on 2017. Blood 10/09/2023 8:35 AM [employer]IONAL OTR COMPANY DRIVER 10/09/2023 8:42 AM REGIONAL OTR COMPANY DRIVER us Yolanda Mosher MD PhD LAB BLOOD ORDERABL ES Final Result Performing Organization Address City/[facility]/ZIP Co de Phone Number [facility] Department [place] [employer] [address] * POCT glucose (10/09/2023 8:35 AM REGIONAL OTR COMPANY DRIVER) Glucose, POC 85 70 - 199 mg/dL [facility] Blood 10/09/2023 8:35 AM REGIONAL OTR COMPANY DRIVER 10/09/2023 8:35 AM REGIONAL OTR COMPANY DRIVER us Yolanda Mosher MD PhD LAB POCT ORDERABLE S - DEVICE Final Result Performing Organization Address City/[facility]/ZIP Co de Phone Number [facility] Department [place] [address] * (ABNORMAL) CBC with auto differential (10/09/2023 8:35 AM REGIONAL OTR COMPANY DRIVER) [facility] WBC 4.9 3.8 - 9.9 K/cumm [facility] Hgb 11.5(L) 11.9 - 15.5 g/dL [facility] Hct 33.1(L) 35.6 - 45.5 % [facility] Plt 195 150 - 400 K/cumm [facility] MPV 9.8 9.1 - 12.3 fL [facility] RBC 3.62(L) 3.90 - 5.20 M/cumm [facility] MCV 91.4 81.3 - 96.4 fL [facility] MCH 31.8 27.1 - 33.3 pg [facility] MCHC 34.7 32.3 - 35.7 g/dL [facility] RDW CV 11.9 11.1 - 14.9 % [facility] RDW SD 40.1 35.7 - 48.1 fL [facility] NRBC abs 0.00 0.00 - 0.01 K/cumm [facility] Blood 10/09/2023 8:35 AM [employer] COMPANY DRIVER 10/09/2023 8:42 AM REG[employer] COMPANY DRIVER us Yolanda Mosher MD PhD LAB BLOOD ORDERABL ES Final Result [facility] [place] [address] * POCT hCG, urine (10/09/2023 8:25 AM REGIONAL O[employer] COMPANY DRIVER) [facility] HCG, ur, POC Negative Negative Lot Number [id number] QC Backgroud Clear Acceptable QC Control Line Acceptable Urine 10/09/2023 8:25 AM REG[employer] COMPANY DRIVER Yolanda Mosher MD PhD POINT OF CARE [...] dose, Pre-Procedure (CV) Given 10/09/2023 8:36 AM [employer] COMPANY DRIVER 0.5 mg sodium chloride 0.9% bolus 500 mL 500 mL, intravenous, Once, On Mildred 10/09/23 at 1330, For 1 dose New Bag 10/09/2023 12:45 PM [employer] DRIVER 500 mL sodium chloride 0.9% infusion 30 mL/hr, intravenous, Continuous, Starting on Mildred 10/09/23 at 0930, Pre-Procedure (CV) New Bag 10/09/2023 8:51 AM [employer] COMPANY DRIVER 30 mL/hr 30 mL/hr sodium chloride 0.9% infusion 250 mL/hr, intravenous, Once, On Mildred 10/09/23 at 0930, For 1 dose, Pre-Procedure (CV) New Bag 10/09/2023 8:51 AM REGIONAL OTR COMPANY DRIVER 250 mL/hr 250 mL/hr documented in this encounter Active and Recently Administered Medications Times are shown in [employer]IONAL [employer]TR COMPANY DRIVER. Scheduled Medication Order 10/07/2023 10/08/2023 10/09/2023 atropine injection 0.5 mg (COMPLETED) 0.5 mg, intravenous, Administer over 1 Minutes, Once, On Mildred 10/09/23 at 0915, For 1 dose, Pre-Procedure (CV) 0836 (Given - Provid er: Lloyd Hernandez RN) sodium chloride 0.9% bolus 500 mL (COMPLETED) 500 mL, intravenous, Once, On Mildred 10/09/23 at 1330, For 1 dose 1245 (New Bag - Prov ider: Lucila Alford RN) sodium chloride 0.9% infusion (COMPLETED) 250 mL/hr, intravenous, Once, On Mildred 10/09/23 at 0930, For 1 dose, Pre-Procedure (CV) 0851 (New Bag - Prov ider: Lloyd Hernandez RN) Continuous Medication Order 10/07/2023 10/08/2023 10/09/2023 sodium chloride 0.9% infusion 30 mL/hr, intravenous, Continuous, Starting on Mildred 10/09/23 at 0930, Pre-Procedure (CV) 0851 (New Bag - Prov ider: Lloyd Hernandez RN)1844 (Due: Stopped) PRN Medication Order 10/07/2023 10/08/2023 10/09/2023 fentaNYL (SUBLIMAZE) preservative free injection (CANCELED) Code/trauma/sedation medication, Starting on Mildred 10/09/23 at 0959, Intra-Procedure (CV) 0959 (Given - Provid er: Kristin Childers RN)1036 (Given - Provider: Kristin Childers RN) ioversoL (OPTIRAY 350) injection (CANCELED) Code/trauma/sedation medication, Starting on Mildred 224 at 1100, Intra-Procedure (CV) 1100 (Given - [...] over 2 Minutes, Code/trauma/sedation medication, Starting on Mlidred 24 at 0959, Intra-Procedure (CV) 0959 (Given - Provid er: Kristin Childers RN)1036 (Given - Provider: Kristin Childers RN) documented in this encounter Orders Medications Ordered That Mehdi ht Not Have Been Administered Count Last Ordered Date First Ordered Date fentaNYL (SUBLIMAZE) preserv ative free injection 1 10/09/2023 ioversoL (OPTIRAY 350) injection 1 10/09/19 lidocaine (XYLOCAINE) 5 mg/m L (0.5 %) preservative free injection 1 10/09/2023 midazolam (VERSED) 2 mg/2 mL preservative free injection 1 10/09/2023 Nursing Count Last Ordered Date First Orde red Date DISCHARGE INSTRUCTIONS 1 10/09/2023 Discharge Count Last Ordered Date First Orde red Date DISCHARGE PATIENT 1 10/09/2023 documented in this encounter Care Teams Bariatric Program Coordinator Relationship Specialty Start Date End Date Orin Bond NP [address] [place] [address] PCP - General Emergency Medicine 01/16/23 Malia Field, FRANCHISE SALES REPRESENTATIVE [address] [place] [address] Neurologist 06/25/23 documented as of this encounter
--- OUTSIDE RECORDS SUMMARY | 2024-08-28 02:32 | XMS_ITS | Encounter Summary ---
Author Organization [facility] Healthcare Address [address] [place] [address] Care Team Providers Care Warehouse Associate Name Role Phone Orin Bond NP Primary Care Provide r Malia Field DYEING MACHINE BACK TENDER Unavailable [phone] Encounter Details Date Type Department Care Team (Latest Contact Info) Description 08/22/2023 4:39 PM ENVIRONMENTAL FIELD TEAM MEMBER - 08/22/2023 11:59 PM ENVIRONMENTAL FIELD TEAM MEMBER Hospital Encounter [facility] [address] [place] [address] Streptococcus exposure Discharge Disposition: Discharge to home or self [...] on file Legal Sex Female 9:03 PM ENVIRONMENTAL FIELD TEAM MEMBER Gender Identity Not on file Sexual Orientation Not on file documented as of this encounter Medications at Time of Discharge Lo Loestrin Fe 1 mg-10 mcg (24)/10 mcg (2) tablet per tablet TAKE 1 TABLET BY MOUTH EVERY DAY 84 tablet 3 03/25/2022 escitalopram (LEXAPRO) 5 mg tablet TAKE 1 TABLET BY MOUTH EVERY DAY FOR 7 DAYS, THEN INCREASE TO 2 TABLETS DAILY 04/16/2023 09/18/2023 documented as of this encounter Discharge Disposition Disposition Code Departure Means Destination Discharge to home or self care documented in this encounter Miscellaneous Notes * Result Encounter Note - Loreto Ortega NP - 08/22/2023 11:59 PM ENVIRONMENTAL FIELD TEAM MEMBER Please alert patient of negative strep culture. Patient should continue tylenol/ibuprofen as directed for discomfort and f/u with PCP if symptoms persist. RONMENTAL FIELD TEAM MEMBER * Result Encounter Note - Joana Allen MA - 08/22/2023 11:59 PM ENVIRONMENTAL FIELD TEAM MEMBER Message sent RONMENTAL FIELD TEAM MEMBER documented in this encounter Plan of Treatment Not on file documented as of this encounter Procedures Procedure Name Priority Date/Time Associated Diagnosis Comments THROAT CULTURE Routine 08/22/2023 4:39 PM ENVIRONMENTAL FIELD TEAM MEMBER Streptococcus exposure documented in this encounter Results * Throat culture Throat (08/22/2023 4:39 PM ENVIRONMENTAL FIELD TEAM MEMBER) Report Final Report: No growth of pathogens. [facility] Comment:Testing performed by : [facility], [address] [place]., [address] Throat 08/22/2023 4:39 PM ENVIRONMENTAL FIELD TEAM MEMBER 08/22/2023 9:42 PM ENVIRONMENTAL FIELD TEAM MEMBER Narrative [facility] - 08/23/2023 5:01 PM ENVIRONMENTAL FIELD TEAM MEMBER Testing performed by [facility] Microbiology Laboratory ([phone]). us Loreto Ortega NP LAB MICROBIOLOGY - GENERAL ORD ERABLES Final Result [facility] [address] Department [place] [address] documented in this encounter Visit Diagnoses Diagnosis Streptococcus exposure documented in this encounter Care Teams Warehouse Associate Relationship Specialty Start Date End Date Orin Bond NP [address] [place] [address] PCP - General Emergency Medicine 01/16/23 Malia Field, DYEING MACHINE BACK TENDER [address] [place] [address] Neurologist 06/25/23 documented as of this encounter
--- OUTSIDE RECORDS SUMMARY | 2024-08-28 02:32 | XMS_ITS | Encounter Summary ---
Author Organization [facility] Address [address] [place] [address] Phone Care Team Providers Care Structural Technician Name Role Phone Orin Bond NP Primary Care Provide r Malia Field Unavailable Reason for Visit * Reason Comments New Patient POTS * Consultation (Routine) - Closed Specialty Diagnoses / Procedures Referred By Contkavya t Referred To Contact Vascular Surgery Diagnoses POTS (postural orthostatic tachycardia syndrome) Caroline Marsh MD Phone: tel: fax: Yolanda Mosher MD PhD [address] [facility] [phone] [place] [address] Phone: tel: fax: Referral ID Status Reason Start Date Expiration Date V isits Requested Visits Authorized [id number] Closed Specialty Services Required 09/04/2023 10/03/2024 1 1 Encounter Details Date Type Department Care Team (Late st Contact Info) Description 09/18/2023 11:45 AM HAND QUILTER Office Visit [facility] Surgery [address] [place] [address] [place] [id number] Yolanda Mosher MD PhD [address] [facility] [phone] [place] [address] POTS (postural orthostatic tachycardia syndrome) Social History [...] on file Legal Sex Female 9:03 PM HAND QUILTER Gender Identity Not on file Sexual Orientation Not on file documented as of this encounter Last Filed Vital Signs Vital Sign Reading Time Taken Comments Blood Pressure 117/70 09/18/2023 12:28 PM HAND QUILTER Pulse 80 09/18/2023 12:28 PM HAND QUILTER Temperature - - Respiratory Rate - - Oxygen Saturation - - Inhaled Oxygen Concentration - - Weight 72.6 kg (160 lb) 09/18/2023 12:28 PM HAND QUILTER Height 175.3 cm (5' 9 ) 09/18/2023 12:28 PM HAND QUILTER Body Mass Index 23.63 09/18/2023 12:28 PM HAND QUILTER documented in this encounter Progress Notes * Yolanda Mosher MD PhD - 09/18/2023 11:45 AM CST Patient: Yomaira Ford Date of : 1990 [...] Live HX OTHER MEDICAL ; Outcome: Live HX [...] the setting of other potential venous troubles. QUILTER documented in this encounter Plan of Treatment Not on file documented as of this encounter Visit Diagnoses Diagnosis POTS (postural orthostatic tachycardia syndrome) Unspecified tachycardia documented in this encounter Discontinued Medications Medication Sig Discontinue Reason Start Date End Da te escitalopram (LEXAPRO) 5 mg tablet TAKE 1 TABLET BY MOUTH EVERY DAY FOR 7 DAYS, THEN INCREASE TO 2 TABLETS DAILY 04/16/2023 09/18/2023 documented as of this encounter Orders Outpatient Referral Count Last Ordered Date Fir st Ordered Date AMB REFERRAL TO VASCULAR SURGERY 1 09/18/19 24 documented in this encounter Care Teams Structural Technician Relationship Specialty Start Date End Date Orin Bond NP [address] [place] [address] PCP - General Emergency Medicine 01/16/23 Malia Field, POWER TRUCK DRIVER [address] [place] [id number] Neurologist 06/25/23 documented as of this encounter
--- OUTSIDE RECORDS SUMMARY | 2024-08-28 02:32 | XMS_ITS | Encounter Summary ---
Author Organization [facility] [place] Address [address] [place] [address] Phone Care Team Providers Care Still Operator Batch Or Continuous Name Role Phone Orin Bond NP Primary Care Provide r Encounter Details Date Type Department Care Team (Late st Contact Info) Description 05/08/2023 Telephone [facility] Cardiology [address] [facility] Advanced Medicine 8th [place] [address] [place] [address] Anna Marie Ferrari Social History Tobacco Use Types Packs/Day Years [...] on file Legal Sex Female 9:03 PM INSURANCE EXAMINING CLERK Gender Identity Not on file Sexual Orientation Not on file documented as of this encounter Miscellaneous Notes * Telephone Encounter - Anna Marie Ferrari - 05/08/2023 4:18 PM CDT Diagnosis/Reason for Appointment: Passing out at work/ Palpitations/ SOB (usually during menstrual cycle) Referring Physician: SELF Ref Ph: If Referring MD is not PCP, list specialty: Triage Questions Yes No Who/Where/When/Notes Have you ever been diagnosed with cancer, or undergone cancer treatments? [] [x] If 'Yes', Schedulefirst available with Cardio-Oncology If yes where were you treated? Have you ever seen a Thread Pulling Machine Attendant in an office setting? [] [x] IF SCHEDULING PATIENT WITH [place] Have you had a baby in the last year or are you ? [] [] Have you had heart or blood pressure problems during a previous ? [] [] Dr. Larissa Montiel Patients only: Are you a hemodialysis or peritoneal dialysis patient? (If yes then patient must be referred from another MD, DO NOT SCHEDULE) [] [] Patient History Questions Yes No Where/When/Notes Have you EVER been hospitalized for ANY cardiac issue? [x] [] ER 3 times for symptoms [facility] Have you ever had any cardiac testing, imaging, or procedures? (Testing - echo, EKG, stress) (Imaging - Cardiac MRI, CT or calcium scoring) (Procedure - Ablation, Cardioversion, CABG) [x] [] Echo- January 2023 [place], [place] [address] Holter Monitor- January 31 2023 [place], [place] EKG- January 2023 Have you ever had a sleep study? [] [x] Do you have a device? If yes what type? (Pacemaker, Defibrillator, Implanted Loop Recorder) [] [x] If yes, where and when was device put in? Machine Sign Writer? ([employer], [employer], [place]) Appointment Date: 06/25 Provider: Dr. Marsh Location: [facility] [x] Confirm appt date, time, provider and location. [x] Advise pt to arrive 15- 20 min early. [x] Advise patient to bring medications/list, photo ID and insurance card [x] Advise of New PatientPacket being mailed to them. documented in this encounter Plan of Treatment Not on file documented as of this encounter Visit Diagnoses Not on filedocumented in this encounter Care Teams Still Operator Batch Or Continuous Relationship Specialty Start Date End Date Orin Bond NP [address] [place] [address] PCP - General Emergency Medicine 01/16/23 documented as of this encounter
--- OUTSIDE RECORDS SUMMARY | 2024-08-28 02:32 | XMS_ITS | Encounter Summary ---
Author Organization [facility] Address [address] [facility] [address] [place] [address] Phone Care Team Providers Care Oracle Identity Management Consultant Name Role Phone Orin Bond NP Primary Care Provide r Malia Field Unavailable [phone] Encounter Details Date Type Department Care Team (Late st Contact Info) Description 09/19/2023 Telephone [facility] Surgery [address] [facility] Advanced Medicine 8th [place] [address] [place] [address] Yolanda Mosher MD PhD [address] [facility] [phone] [place] [address] Social History Tobacco Use Types Packs/Day Years [...] on file 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 Pt has been made aware that she should be NPO after midnight. Letter has been sent to pt's [employer]. Pt voiced understanding. CCO SCRAP SIFTER CCO SCRAP SIFTER documented in this encounter Plan of Treatment Not on file documented as of this encounter Visit Diagnoses Not on filedocumented in this encounter Care Teams Oracle Identity Management Consultant Relationship Specialty Start Date End Date Orin Bond NP [address] [place] [address] PCP - General Emergency Medicine 01/16/23 Malia Field, STITCH BONDING MACHINE TENDER HELPER [address] [place] [address] Neurologist 06/25/23 documented as of this encounter
--- OUTSIDE RECORDS SUMMARY | 2024-08-28 02:32 | XMS_ITS | Encounter Summary ---
Author Organization [facility] Address [address] [facility] [address] [place] [address] Phone Care Team Providers Care Microbiology Technologist Name Role Phone Orin Bond NP Primary Care Provide r Malia Field Unavailable [phone] Reason for Visit * Diagnostic Imaging (Routine) - Authorized Specialty Diagnoses / Procedures Referred By Contac t Referred To Contact Diagnoses Leg pain, bilateral Procedures US Venous Reflux Bilateral Yolanda Mosher MD PhD [address] [phone] [place] [address] Phone: tel: fax: [facility] (All Locations) Referral ID Status Reason Start Date Expiration Date V isits Requested Visits Authorized [id number] Authorized 09/05/2023 10/04/2024 99 99 Encounter Details Date Type Department Care Team (Latest Contact Info) Description 09/18/2023 8:00 AM ELECTRICIAN RESEARCH Ancillary Procedure [facility] at [facility] [address] [place] [address] Advanced Medicine 8th [place] [address] [place] [address] Leg pain, bilateral Social History Tobacco Use Types Packs/Day Years [...] on file Legal Sex Female 9: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 ELECTRICIAN RESEARCH Gender Identity Not on file Sexual Orientation Not on file documented as of this encounter Plan of Treatment Not on file documented as of this encounter Procedures Procedure Name Priority Date/Time Associated Diagnosis Comments US VENOUS REFLUX BILATERAL Schedule Routine, Read Routine (OP Routine) 09/18/2023 9:33 AM ELECTRICIAN RESEARCH Leg pain, bilateral documented in this encounter Results * US Venous Reflux Bilateral (09/18/2023 9:33 AM ELECTRICIAN RESEARCH) Anatomical Region Laterality Modality Vascular Bilateral Ultrasound 09/18/2023 8:13 AM ELECTRICIAN RESEARCH Narrative 09/19/2023 12:15 AM ELECTRICIAN RESEARCH [facility] - Department of Vascular Surgery, Vascular Laboratory [address] [place] [address] Lower Extremity Venous Reflux Duplex Report Patient Name: YOMAIRA FORD R : 1990 (33y 5m) Study Date: 09/18/2023 8:13:18 AM Gender: F Tech: LAB Location: [facility] Provider: YOLANDA MOSHER ?Quality: Adequate Order Provider: YOLANDA MOSHER PROCEDURES: Vascular Report: Lower extremity venous valvular insufficiency or reflux evaluation is performed with rapid cuff inflator. Veins evaluated are sapheno-femoral junction, great saphenous, common femoral, femoral, profunda femoral, popliteal, sapheno-popliteal and small saphenous veins bilaterally. Criteria for superficial vein reflux is retrograde blood flow greater than 0.5 seconds in the standing position. INDICATIONS: Leg pain, bilateral - Measurements: Right Leg ? Left Leg Measurement ?Value ?Units ?Measurement ?Value ? Units Rt Sapheno-Femoral Junction ?0.58 ? cm ? Lt Sapheno-Femoral Junction ?0.87 ?cm Rt Great Saphenous Thigh - Proximal ?0.41 ? cm ? Lt Great Saphenous Thigh - Proximal ?0.57 ?cm Rt Great Saphenous Thigh - Mid ? 0.28 ? cm ? Lt Great Saphenous Thigh - Mid ? 0.27 ?cm Rt Great Saphenous Thigh - Distal ?0.22 ? cm ? Lt Great Saphenous Thigh - Distal ?0.27 ?cm Rt Great Saphenous Knee ?0.25 ? cm ? Lt Great Saphenous Knee ?0.22 ?cm Rt Great Saphenous Calf - Proximal ? 0.27 ? cm ? Lt Great Saphenous Calf - Proximal ? 0.21 ?cm Rt Great Saphenous Calf - Mid ?0.16 ? cm ? Lt Great Saphenous Calf - Mid ?0.23 ?cm Rt Great Saphenous Calf - Distal ? 0.15 ? cm ? Lt Great Saphenous Calf - Distal ? 0.18 ?cm Rt Sapheno-Popliteal Junction ?0.21 ? cm ? Lt Sapheno-Popliteal Junction ?0.54 ?cm Rt Small Saphenous Proximal ?0.19 ? cm ? Lt Small Saphenous Mid ? 0.23 ?cm Rt Small Saphenous Mid ? 0.19 ? cm ? Lt Small Saphenous Distal ?0.24 ?cm Measurement ?Value ?Units ?Measurement ?Value ? Units Right Leg ? Left Leg - FINDINGS: Performing Packaging Materials Inspector: Nabila Casiano RVT, [place]. Patient positioning: Reflux testing is performed in standing position. Bilateral: The common femoral, femoral, popliteal veins were evaluated with compression maneuvers. No evidence of deep vein thrombus by duplex, proximal to the calf. Noninvasive venous studies cannot rule out an isolated calf vein obstruction. There is no evidence of venous reflux in the lower extremities bilaterally. CONCLUSIONS: There is no evidence of acute deep vein thrombosis or reflux in the lower extremities bilaterally. Noninvasive venous studies cannot rule out isolated calf vein obstruction. HISTORY: Dizziness. PREVIOUS STUDIES: No previous studies for comparison. DISCLAIMER: The study images and the final report will be retained in the patient chart by the Vascular Laboratory for the legally required time period. This chart constitutes the legal record of any testing performed. ATTESTATION: I have reviewed and interpreted the pertinent images and measurements of this study. I attest to the conclusions in the final report that is provided above. Electronically Signed By: Inder Menard MD FACS 2023-09-19 00:15:15 ELECTRICIAN RESEARCH Procedure Note Inder Menard MD - 09/19/2023 [facility] - Department of Vascular Surgery,Vascular Laboratory [address] [place] [address] Lower Extremity Venous Reflux Duplex Report Patient Name: YOMAIRA FORD R : 1990 (33y 5m) Study Date: 09/18/2023 8:13:18 AM Gender: F Tech: LAB Location: [facility] Provider: YOLANDA MOSHER Quality: Adequate Order Provider: YOLANDA MOSHER PROCEDURES: Vascular Report: Lower extremity venous valvular insufficiency or reflux evaluation isperformed with rapid cuff inflator. Veins evaluated are sapheno-femoral junction, great saphenous, commonfemoral, femoral, profunda femoral, popliteal, sapheno-popliteal and small saphenous veinsbilaterally. Criteria for superficial vein reflux is retrograde blood flow greater than0.5 seconds in the standing position. INDICATIONS: Leg pain, bilateral - Measurements: Right LegLeft Leg Measurement Value Units MeasurementValue Units Rt Sapheno-Femoral Junction 0.58 cm LtSapheno-Femoral Junction 0.87 cm Rt Great Saphenous Thigh - Proximal 0.41 cm Lt GreatSaphenous Thigh - Proximal 0.57 cm Rt Great Saphenous Thigh - Mid 0.28 cm Lt GreatSaphenous Thigh - Mid 0.27 cm Rt Great Saphenous Thigh - Distal 0.22 cm Lt GreatSaphenous Thigh - Distal 0.27 cm Rt Great Saphenous Knee 0.25 cm Lt GreatSaphenous Knee 0.22 cm Rt Great Saphenous Calf - Proximal 0.27 cm Lt GreatSaphenous Calf - Proximal 0.21 cm Rt Great Saphenous Calf - Mid 0.16 cm Lt GreatSaphenous Calf - Mid 0.23 cm Rt Great Saphenous Calf - Distal 0.15 cm Lt GreatSaphenous Calf - Distal 0.18 cm Rt Sapheno-Popliteal Junction 0.21 cm LtSapheno-Popliteal Junction 0.54 cm Rt Small Saphenous Proximal 0.19 cm Lt SmallSaphenous Mid 0.23 cm Rt Small Saphenous Mid 0.19 cm Lt SmallSaphenous Distal 0.24 cm Measurement Value Units MeasurementValue Units Right LegLeft Leg - FINDINGS: Performing Packaging Materials Inspector: Nabila Casiano RVT, RDMS. Patient positioning: Reflux testing is performed in standing position. Bilateral: The common femoral, femoral, popliteal veins were evaluated withcompression maneuvers. No evidence of deep vein thrombus by duplex, proximal to the calf.Noninvasive venous studies cannot rule out an isolated calf vein obstruction. There is noevidence of venous reflux in the lower extremities bilaterally. CONCLUSIONS: There is no evidence of acute deep vein thrombosis or reflux in the lowerextremities bilaterally. Noninvasive venous studies cannot rule out isolated calf veinobstruction. HISTORY: Dizziness. PREVIOUS STUDIES: No previous studies for comparison. DISCLAIMER: The study images and the final report will be retained in the patientchart by the Vascular Laboratory for the legally required time period. This chartconstitutes the legal record of any testing performed. ATTESTATION: I have reviewed and interpreted the pertinent images and measurements ofthis study. I attest to the conclusions in the final report that is provided above. Electronically Signed By: Inder Menard MD [facility] 2023-09-19 00:15:15 ELECTRICIAN RESEARCH us Yolanda Mosher MD PhD IMG US PROCEDURES Final Result documented in this encounter Visit Diagnoses Diagnosis Leg pain, bilateral Pain in soft tissues of limb documented in this encounter Care Teams Microbiology Technologist Relationship Specialty Start Date End Date Orin Bond, TOWN CLERK [address] [place] [address] PCP - General Emergency Medicine 01/16/23 Malia Field, BLENDING TECHNICIAN [address] [place] [address] Neurologist 06/25/23 documented as of this encounter
--- OUTSIDE RECORDS SUMMARY | 2024-08-28 02:32 | XMS_ITS | Encounter Summary ---
Author Organization [facility] Address [address] [facility] [address] [place] [address] Phone Care Team Providers Care Industrial Sewer Name Role Phone Orin Bond NP Primary Care Provide r Malia Field Unavailable [phone] Reason for Referral * MRI/CAT/PET Scan (Routine) - Closed Specialty Diagnoses / Procedures Referred By Contac t Referred To Contact Radiology Diagnoses POTS (postural orthostatic tachycardia syndrome) Procedures CT Abdomen Pelvis W Contrast Yolanda Mosher MD PhD [address] [facility] [phone] [place] [address] Phone: tel: fax: [facility] [address] [place] [address] Referral ID Status Reason Start Date Expiration Date Visits Re quested Visits Authorized [id number] Closed 09/09/2023 03/07/2024 1 1 GRATION INSPECTOR * Diagnostic Imaging (Routine) - Authorized Specialty Diagnoses / Procedures Referred By Contac t Referred To Contact Diagnoses Leg pain, bilateral Procedures US Venous Reflux Bilateral Yolanda Mosher MD PhD [address] [facility] [phone] [place] [address] Phone: tel: fax: [facility] (All Locations) Referral ID Status Reason Start Date Expiration Date V isits Requested Visits Authorized [id number] Authorized 09/05/2023 10/04/2024 99 99 GRATION INSPECTOR Encounter Details Date Type Department Care Team (Late st Contact Info) Description 09/05/[address] [facility] Surgery [address] [facility] Floor 1 [place] [address] Yolanda Mosher MD PhD [address] [phone] [place] [address] Leg pain, bilateral (Primary Dx); POTS (postural orthostatic tachycardia syndrome) Social History [...] on file Legal Sex Female 9:03 PM IMMIGRATION INSPECTOR Gender Identity Not on file Sexual Orientation Not on file documented as of this encounter Ordered Prescriptions Prescription Sig Dispense Quantity Refills Last Filled Start Date End Date predniSONE (DELTASONE) 50 mg tabletIndications: pre medicate for allergy to contrast 50mg P.O. to be taken 19hrs, 13hrs, 7hrs, and 1 hr prior to scheduled appointment time 4 tablet 09/05/2023 documented in this encounter Plan of Treatment Not on file documented as of this encounter Results * CT Abdomen Pelvis W Contrast (09/18/2023 11:34 AM IMMIGRATION INSPECTOR) Anatomical Region Laterality Modality Body N/A Computed Tomogra phy 09/18/2023 12:1 4 PM IMMIGRATION INSPECTOR Impressions 09/18/2023 12:14 PM IMMIGRATION INSPECTOR No acute process identified in the abdomen and pelvis. Electronically signed by: Fanta Bauer M.D. Narrative 09/18/2023 12:14 PM IMMIGRATION INSPECTOR EXAMINATION: ??Computed tomography of the abdomen and pelvis with intravenous contrast HISTORY: Abdominal pain TECHNIQUE: ??Transaxial computed tomographic images of the abdomen and pelvis were obtained with intravenous contrast according to standard protocol after the uneventful administration of 75 mL Opti-Ray 350 intravenous contrast. COMPARISON: None FINDINGS: Mild dependent atelectasis in both lungs. ??No pleural effusion. ??The imaged heart is normal in size. ??No pericardial effusion. The liver, gallbladder, spleen, pancreas, and adrenal glands appear normal. The kidneys enhance symmetrically without hydronephrosis. ??Small cyst in the right kidney. ??Subcentimeter hypoattenuating lesion in the left kidney is too small to characterize. ??The urinary bladder appears normal. ??The uterus is present. ??No suspicious adnexal mass. The stomach is nondistended. ??No evidence of bowel obstruction or inflammation. ??The appendix is not clearly visible; however, no evidence of inflammation in the right lower quadrant of the abdomen to suggest acute appendicitis. No ascites or pneumoperitoneum. ??Normal caliber abdominal aorta. ??No lymphadenopathy in the abdomen and pelvis. No suspicious osseous lesion. Procedure Note Fanta Bauer MD - 09/18/2023 EXAMINATION: Computed tomography of the abdomen and pelvis with intravenous contrast HISTORY: Abdominal pain TECHNIQUE: Transaxial computed tomographic images of the abdomen and pelvis were obtained with intravenous contrast according to standard protocol after the uneventful administration of 75 mL Opti-Ray 350 intravenous contrast. COMPARISON: None FINDINGS: Mild dependent atelectasis in both lungs. No pleural effusion. The imaged heart is normal in size. No pericardial effusion. The liver, gallbladder, spleen, pancreas, and adrenal glands appear normal. The kidneys enhance symmetrically without hydronephrosis. Small cyst in the right kidney. Subcentimeter hypoattenuating lesion in the left kidney is too small to characterize. The urinary bladder appears normal. The uterus is present. No suspicious adnexal mass. The stomach is nondistended. No evidence of bowel obstruction or inflammation. The appendix is not clearly visible; however, no evidence of inflammation in the right lower quadrant of the abdomen to suggest acute appendicitis. No ascites or pneumoperitoneum. Normal caliber abdominal aorta. No lymphadenopathy in the abdomen and pelvis. No suspicious osseous lesion. IMPRESSION: No acute process identified in the abdomen and pelvis. Electronically signed by: Fanta Bauer M.D. Yolanda Mosher MD PhD IMG CT PROCEDURES Final Result * US Venous Reflux Bilateral (09/18/2023 9:33 AM IMMIGRATION INSPECTOR) Anatomical Region Laterality Modality Vascular Bilateral Ultrasound 09/18/2023 8:13 AM IMMIGRATION INSPECTOR Narrative 09/19/2023 12:[address] [facility] - Department of Vascular Surgery, Vascular Laboratory [address] [place] [address] Lower Extremity Venous Reflux Duplex Report Patient Name: YOMAIRA FORD R : 1990 (33y 5m) Study Date: 09/18/2023 8:13:18 AM Gender: F Tech: LAB Location: [facility] Care Provider: YOLANDA MOSHER ?Quality: Adequate Order Provider: [...] Leg ? Left Leg - FINDINGS: Performing Keycase Assembler: Nabila Casiano RVSiobhan, [facility]. Patient positioning: Reflux testing is performed in [...] By: Inder Menard MD FACS 2023-09-19 00:15:15 IMMIGRATION INSPECTOR Procedure Note Inder Menard MD - 09/19/2023 [facility] - Department of Vascular Surgery,Vascular Laboratory [address] [place] [address] Lower Extremity Venous Reflux Duplex Report Patient Name: YOMAIRA FORD R : 1990 (33y 5m) Study Date: 09/18/2023 8:13:18 AM Gender: F Tech: LAB Location: [facility] Ref Provider: YOLANDA MOSHER Quality: Adequate Order Provider: [...] Units Right LegLeft Leg - FINDINGS: Performing Keycase Assembler: Nabila Casiano RVT, RDMS. Patient positioning: Reflux [...] above. Electronically Signed By: Inder Menard MD [facility] 2023-09-19 00:15:15 IMMIGRATION INSPECTOR us Yolanda Mosher MD PhD IMG US PROCEDURES Final Result documented in this encounter Visit Diagnoses Diagnosis Leg pain, bilateral- Primary Pain in soft tissues of limb POTS (postural orthostatic tachycardia syndrome) Unspecified tachycardia Leg pain, bilateral Pain in soft tissues of limb POTS (postural orthostatic tachycardia syndrome) Unspecified tachycardia documented in this encounter Care Teams Industrial Sewer Relationship Specialty Start Date End Date Orin Bond NP [address] [place] [address] PCP - General Emergency Medicine 01/16/23 Malia Field, CERTIFIED SURGICAL TECHNICIAN [address] [place] [address] Neurologist 06/25/23 documented as of this encounter
--- OUTSIDE RECORDS SUMMARY | 2024-08-28 02:32 | XMS_ITS | Encounter Summary ---
Author Organization [facility] Address [address] [facility] [address] [place] [address] Phone Care Team Providers Care Hospital Chief Financial Officer Name Role Phone Orin Bond NP Primary Care Provide r Malia Field Unavailable [phone] Encounter Details Date Type Department Care Team (Late st Contact Info) Description 09/19/2023 Telephone [facility] Surgery [address] [facility] Advanced Medicine 8th [place] [address] [place] [address] Yolanda Mosher MD PhD [address] [facility] [phone] [place] [address] Social History Tobacco Use Types [...] on file 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 I spoke with the patient regarding this allergy. The patient has never had this dye. Pt is allergic to MRI dye and the dyeallergy was entered in error. Allergy has been deleted from the patient's chart. Pt has been informed and voices understanding. STOCK FARMER documented in this encounter Plan of Treatment Not on file documented as of this encounter Visit Diagnoses Not on filedocumented in this encounter Care Teams Hospital Chief Financial Officer Relationship Specialty Start Date End Date Orin Bond NP [address] [place] [address] PCP - General Emergency Medicine 01/16/23 Malia Field, INSECT CONTROL INSPECTOR [address] [place] [address] Neurologist 06/25/23 documented as of this encounter
--- OUTSIDE RECORDS SUMMARY | 2024-08-28 02:32 | XMS_ITS | Encounter Summary ---
Author Organization 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 MB Dx; Dizziness, generalized weakness Ref: Orin Bond APRN, READING ASSISTANT documented in this encounter Plan of Treatment Not on file documented as of this encounter Visit Diagnoses Not on filedocumented in this encounter Care Teams Financial Business Analyst Relationship Specialty Start Date End Date Orin Bond NP [address] [place] [address] PCP - General Emergency Medicine 01/16/23 documented as of this encounter
--- OUTSIDE RECORDS SUMMARY | 2024-08-28 02:32 | XMS_ITS | Clinical Summary ---
[facility] Address [address] [place] [address] Care Team Providers Care Tape Edge Machine Operator Name Role Phone Orin Bond NP Primary Care Provide r Malia Field FORK TRUCK DRIVER Unavailable [phone] Allergies Active Allergy Reactions Criticality Noted Date Comments Gadoteridol Hives,Itching,Rash Medium 03/26/2023 Pt received Prohance 16ml. Itchy throat, rash, and hives developed within a few minutes. Dr Hairston examined patient. Patient held for 30 minutes, no worsening symptoms. 06/06/23-pt completed MRI/MRA Brain & Neck w/wo using Z Planeance MRI contast- premedicated 13 hour regimen successfully [...] it, Preservative Free, Intramuscular 07/12/2021,07/05/2016 Varicella 11/29/2016 Surgical History Surgery Date Site/Laterality Comments OTHER SURGICAL HISTORY Hx chronic dysuria: Abx tx; responded to zyrtec OTHER SURGICAL HISTORY 09/01/2013 - 08/31/2014 : OTHER SURGICAL HISTORY 09/01/2013 - 08/31/2014 : OTHER SURGICAL HISTORY 09/01/2010 - 08/31/2011 : OTHER SURGICAL HISTORY 09/01/2016 - 08/31/2017 : 8 hr labor TONSILLECTOMY MOLE REMOVAL back/ benign Medical History Medical History Date Comments Hx Other Medical Hx chronic dysu fiordaliza Hx Other Medical manag ement; Outcome: Live Hx Other Medical ; Outc ome: Live infant Hx Other Medical ; Outc ome: 41 Weeks week 8lb(s) 9 oz Hx Other Medical ; Outc ome: 41 Weeks week 8 lb(s) 2 oz Female Hx Other Medical ; Outc ome: 40W0D week 7lb(s) 11 oz Male Family History Medical History Relation Name Comments Anemia Brother Anemia; Asthma Father Asthma; Cancer Maternal Grandfather Cancer; Colon cancer Maternal Grandfather Cancer, colon; Diabetes Maternal Grandfather Diabete s mellitus; Osteoporosis Maternal Grandmother Osteopo rosis; Hypertension Mother Hypertension; Relation Name Status Comments Brother Father Maternal Grandfather Maternal Grandmother Mother Social History Tobacco Use Types Packs/Day Years [...] on file 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 Gender Identity Not on file Sexual Orientation Not on file Obstetrics History Para Term AB IAB SAB Ectopic Multiple Livin g Live Births 4 3 3 1 1 3 3 Date Outcome GA Total Labor Labor/2nd/3rd Weight Sex Type Anes PTL Nuria A1 A5 Name Clin Term Vag-S pont Living Term Vag-S pont Living Term Vag-S pont Living SAB Last Filed Vital Signs Vital Sign Reading Time Taken Comments Blood Pressure 108/71 10/30/2023 9:53 AM COMMERCIAL AIRLINE PILOT Pulse 67 10/30/2023 9:53 AM COMMERCIAL AIRLINE PILOT Temperature 36.8 ??C (98.2 ??F) 08/22/2023 4:33 PM CS T Respiratory Rate 25 10/09/2023 2:05 PM COMMERCIAL AIRLINE PILOT Oxygen Saturation 100% 10/09/2023 2:05 PM COMMERCIAL AIRLINE PILOT Inhaled Oxygen Concentration - - Weight 72.6 kg (160 lb) 10/30/2023 9:53 AM COMMERCIAL AIRLINE PILOT Height 175.3 cm (5' 9 ) 10/30/2023 9:53 AM COMMERCIAL AIRLINE PILOT Body Mass Index 23.63 10/30/2023 9:53 AM COMMERCIAL AIRLINE PILOT Plan of Treatment Health Maintenance Due Date Last Done Comments DTaP/Tdap/Td Vaccine (1 - Tdap) 2000 Hepatitis B Screening 2007 Varicella Vaccines (2 of 2 - 13+ 2-dose series) 12/27/2016 11/29/2016 Cervical Cancer Screening 03/05/20232021, 02/12/2021, 08/08/2017 Depression Screening 03/05/2023 03/05/2022, 02/12/2021, 10/04/2019, Additional history exists Regular Well Visit/Exam 18-64 03/05/2023 03/05/2022, 02/12/2021, 10/04/2019, Additional history exists Influenza Vaccine (#1) 2024 07/12/2021, 2015 Hepatitis C Screening Completed 06/29/2016 HPV Vaccines Aged Out No longer eligi ble based on patient's age to complete this topic Pneumococcal vaccine <65 Aged Out No longer eligible based on [...] Genotyping (03/05/2022 3:28 PM CDT) CLINICAL INFORMATION: [facility] Comment:Information not prov ided LMP [facility] Comment:[phone] Previous Pap [facility] Comment:INFORMATION NOT PROV IDED Prev. Bx [facility] Comment:INFORMATION NOT PROV IDED SOURCE: [facility] Comment:Cervix, Endocervix Pap, specimen adequacy [facility] Comment: Satisfactory for evaluation. Endocervical/transformation zone component present. HPV interp [facility] Comment:Negative for intraep ithelial lesion or malignancy. Bench Assembler Operator [facility] Comment: JAF, CT(ASCP) CT Screening Location: [place] [address] [address] [phone] Review transplant nurse [facility] Comment: DDS, CT(ASCP) CT screening location: [place] [address] [address] [phone] Comment [facility] Comment: EXPLANATORY NOTE: The Pap is a [...] High Risk E6/E7 Not Detected NOT DETECTED [facility] Comment: Not Detected High Risk HPV types (16,18,31,33,35,39,45,51,52, 56,58,59,66,68) were not detected. Other HPV types which cause anogenital lesions may be present. The significance of the other types of HPV in malignant processes has not been established. Methodology: Real Time PCR ? Thin prep 03/05/2022 3:28 PM CDT 03/06/2022 12:40 AM CDT Danielle Zamudio TOOL ROOM ATTENDANT LAB CYTOLOGY ORDERABLES F inal Result Performing Organization Address City/[facility]/ZIP Co de Phone Number [facility] [address] [place] [address] [facility] [address] [place] [address] * Serum Hepatitis C ab (06/29/2016 6:20 AM CDT) HCV ab NON-REACTI VE NON-REACTI VE CDR HISTORICAL RESULTS Hepatitis signal to cutoff ratio 0.01 <1.00 CDR HISTORICAL RESULTS Serum 06/29/2016 6:20 AM CDT Narrative CDR HISTORICAL RESULTS - 07/01/2016 2:00 PM CDT Test performed at [facility] [address] [address] ??[id number] Director: LAKEISHA CASAS DO,MPH Historical Provider LAB BLOOD ORDERABLES Adriana bustamante Result Performing Organization Address City/[facility]/ZIP Co de Phone Number CDR HISTORICAL RESULTS from Last 3 Months or Most Recently Relevant to Health [place] [address] [facility] [place] [address] [facility] [place] [address] [facility] Advance Directives For more information, please contact: [phone] * Full Code (Latest Code Status on File) Date Activated Date Inactivated Comments 10/09/2023 11:52 AM 10/09/2023 6:44 PM Care Teams Tape Edge Machine Operator Relationship Specialty Start Date End Date Orin Bond NP [address] [place] [address] PCP - General Emergency Medicine 01/16/23 Malia Field, FORK TRUCK DRIVER [address] [place] [id number] Neurologist 06/25/23
--- OUTSIDE RECORDS SUMMARY | 2024-08-28 02:32 | XMS_ITS | Encounter Summary ---
Author Organization [facility] Healthcare Address [address] [place] [address] Care Team Providers Care Nurse Transition Name Role Phone Orin Bond NP Primary Care Provide r Malia Field SALON DESIGNER Unavailable [phone] Reason for Visit * Reason Comments Sore Throat Pt c/o dry and irrit ated sinuses and feeling tired and sluggish that started last night Encounter Details Date Type Department Care Team (Late st Contact Info) Description 08/22/2023 4:30 PM OPERATIONS MANAGER Office Visit [facility] at [address] [address] Loreto Ortega NP [address] [place] [address] [address] [place] [address] Pharyngitis, unspecified etiology (Primary Dx); Streptococcus exposure Social History Tobacco Use Types Packs/Day Years [...] on file Legal Sex Female 9:03 PM OPERATIONS MANAGER Gender Identity Not on file Sexual Orientation Not on file documented as of this encounter Last Filed Vital Signs Vital Sign Reading Time Taken Comments Blood Pressure 104/66 08/22/2023 4:33 PM OPERATIONS MANAGER Pulse 61 08/22/2023 4:33 PM OPERATIONS MANAGER Temperature 36.8 ??C (98.2 ??F) 08/22/2023 4:33 PM CS T Respiratory Rate 22 08/22/2023 4:33 PM OPERATIONS MANAGER Oxygen Saturation 99% 08/22/2023 4:33 PM OPERATIONS MANAGER Inhaled Oxygen Concentration - - Weight 70.3 kg (155 lb) 08/22/2023 4:33 PM OPERATIONS MANAGER Height 175.3 cm (5' 9 ) 08/22/2023 4:33 PM OPERATIONS MANAGER Body Mass Index 22.89 08/22/2023 4:33 PM OPERATIONS MANAGER documented in this encounter Patient Instructions * Patient Instructions* Loreto Ortega NP - 08/22/2023 4:30 PM OPERATIONS MANAGER The rapid strep test performed at the [facility] today was NEGATIVE. Throat culture sent Take Tylenol (acetaminophen) or Advil/Motin (ibuprofen) as needed per package directions for fevers/pain. Gargle with warm salt water (1tsp salt/1 cup water) or warm tea with honey and lemon to soothe pain Frequent warm or cool liquids can be soothing, like ice chips, popsicles, chicken broth, and tea. If you still are not having relief with the above, you can try a Magic Mouthwash -Equal parts liquid antacid (e.g.Maalox) and children's Benadryl with a couple drops of Anbesol gargle and spit every 3-4 hours as needed. If you are not improving or worsening in the next 3-5 days you must RETURN to the clinic, go to your PCP, or Urgent Care/ER to be SEEN and reevaluated. ATIONS MANAGER * Attachments The following attachments cannot be sent through Care Everywhere. * Pharyngitis (Departmental Secretary) (Chadian) documented in this encounter Progress Notes * Loreto Ortega NP - 08/22/2023 4:30 PM CST Images from the original note were not included. Patient ID: Yomaira Ford is a 33 y.o. female followed by Orin Bond NP Chief Complaint Patient presents with Sore Throat Pt c/o dry and irritated sinuses and feeling tired and sluggish that started last night Patient presents to the clinic with reports of sore throat, fatigue, and irritated sinuses that started last night. Patient reports that her child is currently positive for strep. Patient denies fevers, chest pain, difficulty breathing, dizziness, abdominal pain, and vomiting. She has taken no OTC medications for her symptoms. Review of Systems Constitutional: Positive for fatigue. Negative for chills and fever. HENT: Positive for congestion and sore throat. Negative for ear pain, postnasal drip and rhinorrhea. Respiratory: Negative for cough, chest tightness, shortness of breath and wheezing. Cardiovascular: Negative for chest pain. Gastrointestinal: Negative for diarrhea, nausea and vomiting. Musculoskeletal: Negative for myalgias. Neurological: Negative for headaches. Vitals: 08/22/23 1633 BP: 104/66 Pulse: 61 Resp: 22 Temp: 36.8 ??C (98.2 ??F) SpO2: 99% Weight: 70.3 kg (155 lb) Height: 175.3 cm (5' 9 ) Recent Results (from the past 24 hour(s)) POCT rapid strep A Collection Time: 08/22/23 4:33 PM Result Value Ref Range Rapid Strep A, POC Negative Negative Physical Exam Vitals reviewed. Constitutional: Appearance: She is well-developed. HENT: Right Ear: Tympanic membrane, ear canal and external ear normal. Tympanic membrane is not injected,erythematous or bulging. Left Ear: Tympanic membrane, ear canal and external ear normal. Tympanic membrane is not injected, erythematous or bulging. Nose: Congestion present. No rhinorrhea. Right Sinus: No maxillary sinus tenderness or frontal sinus tenderness. Left Sinus: No maxillary sinus tenderness or frontal sinus tenderness. Mouth/Throat: Lips: Wagon Wheel. Mouth: Mucous membranes are moist. Pharynx: Uvula midline. No pharyngeal swelling, oropharyngeal exudate or posterior oropharyngeal erythema. Comments: No tonsils Cardiovascular: Rate and Rhythm: Normal rate and regular rhythm. Pulmonary: Effort: Pulmonary effort is normal. No respiratory distress. Breath sounds: Normal breath sounds. No decreased breath sounds, wheezing or rhonchi. Lymphadenopathy: Cervical: No cervical adenopathy. Skin: General: Skin is warm and dry. Neurological: Mental Status: She is alert and oriented to person, place, and time. Diagnoses and all orders for this visit: Pharyngitis, unspecified etiology (Primary) Streptococcus exposure - POCT rapid strep A - Throat culture Throat; Future Orders Placed This Encounter Procedures Throat culture Throat Standing Status: Future Standing Expiration Date: 08/22/2024 POCT rapid strep A Assessment/Plan # acute pharyngitis --Throat culture sent --recommended salt water gargles --antihistamine as needed for congestion, use as directed --Warm tea with honey and lemon --tylenol/motrin for pain/fever, use as directed. --diet as tolerated --ED presentation with one or more of the following symptoms: fever uncontrolled with antipyretics,shortness of breath, chest discomfort, uncontrolled n/v/d --f/u with PCP if symptoms persist Disposition Treatment plan including expectations, follow up, and return precautions discussed with patient/parent, verbalizes understanding. Medication dosage, use, and potential adverse reactions discussed with patient/parent. Advised to follow up with PCP if symptoms do not resolve as expected or sooner if condition worsens. Discussed Signs/symptoms warranting ER evaluation including worsening fever, increased shortness ofbreath, chest pain, severe N/V/D, or any other worrisome symptoms Patient and/or guardian was given an opportunity to ask questions, questions answered. Patient Education The rapid strep test performed at the [facility] today was NEGATIVE. Throat culture sent Take Tylenol (acetaminophen) or Advil/Motin (ibuprofen) as needed per package directions for fevers/pain. Gargle with warm salt water (1tsp salt/1 cup water) or warm tea with honey and lemon to soothe pain Frequent warm or cool liquids can be soothing, like ice chips, popsicles, chicken broth, and tea. If you still are not having relief with the above, you can try a Magic Mouthwash -Equal parts liquid antacid (e.g.Maalox) and children's Benadryl with a couple drops of Anbesol gargle and spit every 3-4 hours as needed. If you are not improving or worsening in the next 3-5 days you must RETURN to the clinic, go to your PCP, or Urgent Care/ER to be SEEN and reevaluated. Loreto Ortega NP ATIONS MANAGER documented in this encounter Plan of Treatment Not on file documented as of this encounter Procedures Procedure Name Priority Date/Time Associated Diagnosis Comments POCT RAPID STREP Routine 08/22/2023 4:33 PM OPERATIONS MANAGER Streptococcus exposure documented in this encounter Results * Throat culture Throat (08/22/2023 4:39 PM OPERATIONS MANAGER) Report Final Report: No growth of pathogens. LUKE DURON Comment:Testing performed by : [facility], [address] [place]., [address] Throat 08/22/2023 4:39 PM OPERATIONS MANAGER 08/22/2023 9:42 PM OPERATIONS MANAGER Narrative LUKE - 08/23/2023 5:01 PM OPERATIONS MANAGER Testing performed by [facility]biology Laboratory ([phone]). Loreto Ortega NP LAB MICROBIOLOGY - GENERAL ORD ERABLES Final Result [facility] [address] [address] [place] [address] * POCT rapid strep A (08/22/2023 4:33 PM OPERATIONS MANAGER) Rapid Strep A, POC Negative Negative Swab 08/22/2023 4:33 PM OPERATIONS MANAGER Loreto Ortega NP POINT OF CARE TEST ORDERABLES Final Result documented in this encounter Visit Diagnoses Diagnosis Pharyngitis, unspecified etiology- Primary Streptococcus exposure Streptococcus exposure documented in this encounter Historical Medications * This list may reflect changes made after this encounter. escitalopram (LEXAPRO) 5 mg tablet TAKE 1 TABLET BY MOUTH EVERY DAY FOR 7 DAYS, THEN INCREASE TO 2 TABLETS DAILY 04/16/2023 09/18/2023 added in this encounter Care Teams Nurse Transition Relationship Specialty Start Date End Date Orin Bond NP [address] [place] [address] PCP - General Emergency Medicine 01/16/23 Malia Field, SALON DESIGNER [address] [place] [address] Neurologist 06/25/23 documented as of this encounter
--- OUTSIDE RECORDS SUMMARY | 2024-08-28 02:32 | XMS_ITS | Encounter Summary ---
Author Organization [facility] Healthcare Address [address] [place] [address] Care Team Providers Care Grey Roll Man Name Role Phone Orin Bond NP Primary Care Provide r Malia Field Unavailable [phone] Encounter Details Date Type Department Care Team (Late st Contact Info) Description 06/25/2023 10:35 AM CDT Lab [facility] Advanced Medicine 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 Gender Identity Not on file Sexual Orientation Not on file documented as of this encounter Plan of Treatment Not on file documented as of this encounter Procedures Procedure Name Priority Date/Time Associated Diagnosis Comments ANTI-DOUBLE STRANDED DNA ANTIBODIES Routine 06/25/2023 10:45 AM CDT Palpitations POTS (postural orthostatic tachycardia syndrome) SJOGRENS SYNDROME-B ANTIBODY Routine 06/25/2023 10:45 AM CDT Palpitations POTS (postural orthostatic tachycardia syndrome) SJOGRENS SYNDROME-A ANTIBODY Routine 06/25/2023 10:45 AM CDT Palpitations POTS (postural orthostatic tachycardia syndrome) ERYTHROCYTE SEDIMENTATION RATE Routine 06/25/2023 10:45 AM CDT Palpitations POTS (postural orthostatic tachycardia syndrome) RHEUMATOID FACTOR Routine 06/25/2023 10: 45 AM CDT Palpitations POTS (postural orthostatic tachycardia syndrome) CRP, HIGH SENSITIVITY Routine 06/25/2023 10:45 AM CDT Palpitations POTS (postural orthostatic tachycardia syndrome) documented in this encounter Results * Erythrocyte sedimentation rate (06/25/2023 10:45 AM CDT) Erythrocyte sedimentation rate 15 1 - 20 mm/hr [facility] Blood 06/25/2023 10:4 5 AM CDT 06/25/2023 11:03 AM CDT us Caroline Marsh MD LAB BLOOD ORDERABLES Final Result [facility] Department [place] [address] * CRP (cardiac risk) (06/25/2023 10:45 AM CDT) hsCRP <0.50 mg/L [facility] Comment: Repeated and Verified Interpretive data Adult [...] BLOOD ORDERABLES Final Result Performing Organization Address [facility] de Phone Number [facility] [place] [address] * Anti-double stranded DNA abs (06/25/2023 10:45 AM CDT) [facility] dsDNA Ab 1.0 <=4.0 IUnits/mL [facility] Comment: Interpretive Data Negative: < or = 4 IUnits/mL Indeterminate: 5 - 9 IUnits/mL Positive: > or = 10 IUnits/mL Current interpretive data was last revised on 2017. Blood 06/25/2023 10:4 5 AM CDT 06/25/2023 11:03 AM CDT Result [facility] Caroline Marsh MD LAB BLOOD ORDERABLES Final Result Performing Organization Address [facility] de Phone Number [facility] [place] [address] * Rheumatoid factor (06/25/2023 10:45 AM CDT) [facility] Rheumatoid factor, quant <10.0 0.1 - 15.0 IUnits/mL [facility] Blood 06/25/2023 10:4 5 AM CDT 06/25/2023 11:03 AM CDT Result [facility] Caroline Marsh MD LAB BLOOD ORDERABLES Final Result Performing Organization Address City/[facility] Co de Phone Number [facility] [place] [address] * Sjogren's syndrome A ab (06/25/2023 10:45 AM CDT) Anti-SANDY, SS-A <0.2 <=0.[address] [facility] Comment: Interpretive Data Negative: < 1.0 Ab Index Positive: > or = 1.0 Ab Index Current interpretive data was last revised on 2016. Blood 06/25/2023 10:4 5 AM CDT 06/25/2023 11:03 AM CDT Result [facility] Caroline Marsh MD LAB BLOOD ORDERABLES Final Result Performing Organization Address [facility] [place] [address] * Sjogren's syndrome B ab (06/25/2023 10:45 AM CDT) Anti-SANDY, SS-B <0.2 <=0.[address] [facility] Comment: Interpretive Data Negative: < 1.0 Ab Index Positive: > or = 1.0 Ab Index Current interpretive data was last revised on 2016. Blood 06/25/2023 10:4 5 AM CDT 06/25/2023 11:03 AM CDT Result [facility] Caroline Marsh MD LAB BLOOD ORDERABLES Final Result Performing Organization Address [facility] [place] [address] documented in this encounter Visit Diagnoses Diagnosis Palpitations POTS (postural orthostatic tachycardia syndrome) Unspecified tachycardia documented in this encounter Care Teams Grey Roll Man Relationship Specialty Start Date End Date Orin Bond NP [address] [place] [address] PCP - General Emergency Medicine 01/16/23 Malia Field, [employer] [address] [place] [address] Neurologist 06/25/23 documented as of this encounter
--- OUTSIDE RECORDS SUMMARY | 2024-08-28 02:32 | XMS_ITS | Encounter Summary ---
Author Organization [facility] Address [address] [facility] [address] [place] [address] Phone Care Team Providers Care Cnc Wood Lathe Operator Name Role Phone Orin Bond NP Primary Care Provide r Malia Field Unavailable [phone] Reason for Visit * Reason Comments Post op Encounter Details Date Type Department Care Team (Late st Contact Info) Description 10/30/2023 10:00 AM CERTIFIED TECHNICIAN Office Visit [facility] Surgery [address] [facility] [address] [place] [address] [place] [id number] Yolanda Mosher MD PhD [address] [facility] [id number] [place] [address] 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) Social History Tobacco Use Types [...] on file Legal Sex Female 9:03 PM CERTIFIED TECHNICIAN Gender Identity Not on file Sexual Orientation Not on file documented as of this encounter Last Filed Vital Signs Vital Sign Reading Time Taken Comments Blood Pressure 108/71 10/30/2023 9:53 AM CERTIFIED TECHNICIAN Pulse 67 10/30/2023 9:53 AM CERTIFIED TECHNICIAN Temperature - - Respiratory Rate - - Oxygen Saturation - - Inhaled Oxygen Concentration - - Weight 72.6 kg (160 lb) 10/30/2023 9:53 AM CERTIFIED TECHNICIAN Height 175.3 cm (5' 9 ) 10/30/2023 9:53 AM CERTIFIED TECHNICIAN Body Mass Index 23.63 10/30/2023 9:53 AM CERTIFIED TECHNICIAN documented in this encounter Progress Notes * Yolanda Mosher MD PhD - 10/30/2023 10:00 AM CST Patient: Yomaira Ford Date of : 1990 Date of Service: 10/30/2023 POSTOPERATIVE VISIT HISTORY OF PRESENT ILLNESS: Patient is a 33 y.o. female patient with history of POTS who is status post left ilio caval and renal venograms. Her imaging suggested excellent washout from her left iliac and renal systems, and there was no significant pressure gradient across her renal vein. 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 She is wearing thigh high compression that she is able tolerate for several hours at a time, and she has been able to progressively increase her utilization of these garments. She says that these actually have been making her feel better over time, with reduction of her overall symptoms. She states that she is now on oralcontraceptives, which her roller inspector was somewhat hesitant to prescribe initially because of her POTS diagnosis and risk of venous thrombosis, but the patient states that these OCPs improve her menstrualsymptoms significantly. Additionally, patient states that she [place]. Her will be moving shortly, but she will go at a later date sometimewithin the upcoming months after her kids finish the school year. PHYSICAL EXAMINATION: VITAL SIGNS: Vitals BP 108/71 Pulse 67 Ht 175.3 cm (5' 9 ) Wt 72.6 kg (160 lb) BMI 23.63 kg/m?? HENT: Normocephalic and atraumatic. Extraocular movements are intact. EYES: Pupils are equal and reactive to light bilaterally. NECK: Supple with no lymphadenopathy CHEST: Symmetric chest expansion with no accessory muscle usage HEART: Regular rate and rhythm. ABDOMEN: Soft, nontender, nondistended. VASCULAR: palpable DP pulses. MUSCULOSKELETAL: Mild edema of the left lower extremity NEURO: Grossly intact motor and sensory exam. SKIN: No visible rashes. No foot or ankle wounds noted. ASSESSMENT/PLAN: Patient is a 33-year-old female with history of POTS who was referred for evaluation of venous congestion syndrome who underwent left ilio caval and renal venograms without evidence of significant stenosis or pressure gradient across the left renal vein. 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 I think that she should continue with her compression therapy, and I have discussed with her thatI think overall her body will be able to do a better job of compensating for the gonadal vein occlusion than any surgical intervention. I discussed with her whether she would like to follow-up on an as-needed basis or to have a scheduled visit in 6 months. She would like to have continued follow-upwith a vascular surgeon, but given that she will be moving to [place] in the near future, it would be better for her to establish care with a provider in that area. I will reach out to 1 of our former vascular colleagues who works in the area. IFIED TECHNICIAN documented in this encounter Plan of Treatment Not on file documented as of this encounter Visit Diagnoses Diagnosis Female pelvic congestion syndrome- Primary documented in this encounter Care Teams Cnc Wood Lathe Operator Relationship Specialty Start Date End Date Orin Bond NP [address] [place] [address] PCP - General Emergency Medicine 01/16/23 Malia Field, SPA DIRECTOR [address] [place] [id number] Neurologist 06/25/23 documented as of this encounter
--- OUTSIDE RECORDS SUMMARY | 2024-08-28 02:32 | XMS_ITS | Data Portability ---
Author Organization [facility], [place], Telehealth (patients home) Address [address] [place] [address] Assessment Encounter Date Assessment Date Assessment LastModified by Organization Details LastModified Time 05/06/2023 05/06/2023 27 minutes spent face to face with patient [email or web address] Not available 05/06/2023 13:38:10 08/27/2023 08/27/2023 Annual gynecological exam performed. Patient will come back in a year unless there are new symptoms. [email or web address] Not available 08/27/2023 11:57:09 Plan of Treatment Reminders Order Date Submit Date Provider Last Modified By Organization Details Last Modified Time Details Appointments ANNUAL BOARD CERTIFIED ARTS THERAPIST 2023 10:00A M Ammy Brown Not available Not available Not available Lab cytology study, smear or scraping, cervical or vaginal 2022 023 [facility], [address], [address] [address], [place], [address], 09/05/2023 14:09:30 Referral None recorded. Procedures None recorded. Surgeries None recorded. Imaging None recorded. Medication Orders Lexapro 5 mg tablet 2022 023 [id number], [address] [place], [address], 04/16/2023 17:13:26 Lo Loestrin Fe 1 mg-10 mcg (24)/10 mcg (2) tablet 2022 023 [id number], [address] [place], [address], 06/17/2023 11:23:21 Lo Loestrin Fe 1 mg-10 mcg (24)/10 mcg (2) tablet 2022 023 [id number], [address] [place], [address], 08/27/2023 11:48:09 Patient TargetsNo targets recorded. Patient Instructions Encounter Date Encounter Id Patient Instructions Last Modified By Organization Details Last Modified Time 04/16/2023 [id number] anxiety disorder : care instructions [email or web address] Not available 04/16/2023 12:15:26 sees Neurologist in 2 weeks. pt is interested in restarting OCP. recommend getting MRI done, a letter from the neurologist that pt is safe to start OCP, and a copy of her thrombophilia panel. Will follow up in 3 weeks. Office card given, and instructed pt how to reach me if she has any problems. will also plan to schedule for pap at a future visit. states last wwe last fall. [email or web address] Not available 04/16/2023 17:05:28 05/06/2023 [id number] Preventing Depression From Coming Back: Care Instructions [email or web address] Not available 05/06/2023 15:24:18 Contact the offi ce after getting MRI results. continue magnesium continue self- care activities and finding time to get out in the sun daily. will plan of follow up after getting MRI results [email or web address] Not available 05/06/2023 15:24:17 06/17/2023 [id number] insomnia: care instructions [email or web address] Not available 06/17/2023 11:57:26 08/27/2023 [id number] REcomend monthly SBE encourage exercise encourage well balanced meals, follow up as needed [email or web address] Not available 08/27/2023 14:06:58 Reason for Referral None Reported. Results Created Date Observation Date Name Description Value Unit Range Abnormal Flag Note LastModifiedBy Organization Detail LastModifiedTime 09/03/19 24 09/05/2023 IGP, APT HPV,R FX 16/18 ,45 diagnosis: Commen t NEGAT RAISSA FOR INTRA EPITH ELIAL MABEL Mireles OR [address] . Not Available [facility] ([facility]) [address] [place], [address], 09/05/2023 14:09:24 09/03/1909/05/2023 IGP, APT HPV,R FX 16/18 ,45 specimen adequacy: Margy chan Satis facto ry for evalu ation . Endoc ervic al and/o r squam ous metap lasti c cells (endo cervi mt compo nent) are prese nt. Not Available [facility] ([facility]) [address] [place], [address], 09/05/2023 14:09:24 09/03/19 24 09/05/2023 IGP, APT HPV,R FX 16/18 ,45 clinician provided ICD10: Margy chan Z01.4 19 Not Available [facility] ([facility]) [address] [place], [address], 09/05/2023 14:09:24 09/03/19 24 09/05/2023 IGP, APT HPV,R FX 16/18 ,45 performed by: León Piedra (ASCP ) Not Available [facility] ([facility]) [address] [place], [address], 09/05/2023 14:09:24 09/03/19 24 09/05/2023 IGP, APT HPV,R FX 16/18 ,45 . . Not Available [facility] ([facility]) [address] [place], [address], 09/05/2023 14:09:24 09/03/1909/05/2023 IGP, APT HPV,R FX 16/18 ,45 note: Margy chan The Pap smear is a scree jorge test desig manuela to aid in the detec tion of mona ligna nt and malig nant condi tions of the uteri ne cervi x. It is not a diagn ostic proce dure and shoul d not be used as the sole means of detec ting cervi mt cance r. Both false -posi tive and false -nega tive repor ts do occur . Not Available [facility] ([facility]) [address] [facility], [place], [address], 09/05/2023 14:09:24 09/03/19 24 09/05/2023 IGP, APT HPV,R FX 16/18 ,45 test methodology: Commen t This liqui d based ThinP rep(R ) pap test was chrise manuela with the use of an image guide [place]. Not Available [facility] ([facility]) [address] [facility], [place], [address], 09/05/2023 14:09:24 09/03/19 24 09/05/2023 IGP, APT HPV,R FX 16/18 ,45 HPV aptima Negati ve negati ve This nucle ic acid ampli ficat ion test detec ts fourt een high- risk HPV types (16,1 8,31, 33,35 ,39,4 5,51, 52,56 ,58,5 9,66, 68) witho ut diffe renti ation . Not Available [facility] ([facility]) [address] [facility], [place], [address], 09/05/2023 14:09:24 09/08/19 24 09/08/2023 US, pelvi s, trans abdom inal + trans vagin al No observ ation record ed. [email or web address] [facility] [address], [place], [address], 09/08/2023 13:09:37 Result Notes None recorded. Problems Name Problem SNOMED Code Status Onset Date Resolution Date Notes Provider Name and Address Organization Details Recorded Time Acute pelvic pain 324025433 Active 2023 Ammy Brown, ENRIQUE, PMHNP-BC [address], [place], [address], [facility] 01/02/202 4 13:40:39 Pelvic and perineal pain 674532116 Active 2023 Ammy Brown CNM, [facility]- [address], [place], [address], [facility] 4 09:57:08 Dizzines s 394099947 Active 2022 [facility] 3 10:41:05 Dyspnea 185180010 Active 2022 [facility] 3 10:41:17 Motor function 2671081440 Active 2022 decreased mainly on left [facility] 3 10:41:50 Major depressi ve disorder 130981123 Active 2022 Ammy Brown CNM, [facility]- [address], [place], [address], [facility] 3 12:11:09 Generali zed anxiety disorder 04332498 Active 2022 Ammy Brown CNM, [facility]- [address], [place], [address], [facility] 3 12:11:18 Insomnia 389605275 Active 2022 Ammy Brown CNM, [facility]- [address], [place], [address], [facility] 3 11:44:25 Problem Notes None recorded. Procedures Surgical History Date Name Laterality Status Provider Name and Address Organization Details Recorded Time 2 Date of Last Pap Smear completed Mike Mina [facility] 04/16/2023 10:42:36 Removal of tonsils completed Mike Enriquez [facility] 04/16/2023 10:48:00 Imaging Results Imaging Date Name Status LastModified by Organization Details LastModified Time 09/08/2023 US, pelvis, transabdominal + transvaginal completed [email or web address] [facility] [address], [place], [address], 09/08/2023 13:09:37 Procedure Notes None recorded. Medical Equipment None Reported. Allergies Allergen ID Allergen Name Allergen Category Reaction Reaction Severity Criticality Documentation Date Start Date Code Code System Note Provider Name and Address Organization Details Recorded Time 101 Iodinated contrast media (substanc e) medicatio n hives Not available Not available 04/16/2023 87301 2003 SNOMED [facility] 3 10:37:39 Medications Name Sig Start Date Stop Date Status Note LastModified by Organization Details LastModified Time sleepio mis 04/16 completed Not Available Not Available Not Available meclizine 12.5 mg tablet TAKE 1 TABLET BY MOUTH EVERY 8 HOURS NEEDED FOR DIZZINESS OR NAUSEA. 04/16 completed Not Available Not Available Not Available propranolol 10 mg tablet TAKE 1 TABLET BY MOUTH 3 TIMES DAILY. NEEDED FOR ANXIETY 04/16 completed Not Available Not Available Not Available prednisone 50 mg tablet TO BE TAKEN 19HOURS, 13HOURS, 7HOURS, AND 1 HOUR PRIOR TO SCHEDULED APPOINTME NT TIME active Not Available Not Available No t Available amoxicillin 875 mg-potassiu m clavulanate 125 mg tablet TAKE 1 TABLET BY MOUTH EVERY 12 HOURS FOR 10 DAYS 04/16 completed Not Available Not Available Not Available escitalopra m 5 mg tablet TAKE 1 TABLET BY MOUTH EVERY DAY FOR 7 DAYS, THEN INCREASE TO 2 TABLETS DAILY 2022 active Not Available Not Available Not Avai lable multivitami n active Not Available Not Available Not Available Lo Loestrin Fe 1 mg-10 mcg (24)/10 mcg (2) tablet TAKE 1 TABLET BY MOUTH EVERY DAY 2023 active Not Available Not Available Not Avai lable Banophen 50 mg capsule TAKE 1 TAB BY MOUTH 1 HOUR PRIOR TO MRI active Not Available Not Available No t Available Vitals Date Recorded Body height Body mass index (BMI) Body weight Heart rate Systolic blood pressure Diastolic blood pressure Provider Name and Address Organization Details Last Updated DateTime 3 175.26 cm 23 kg/m2 60529.6 9 g 80 /min 118 mm[Hg] 77 mm[Hg] Ammy Brown CNM, [facility] [address], [place], [address], [facility] 3 11:56:54 Date Recorded Body height Body mass index (BMI) Body weight Heart rate Systolic blood pressure Diastolic blood pressure Provider Name and Address Organization Details Last Updated DateTime 3 175.26 cm 8.5 kg/m2 65732.9 2 g 79 /min 121 mm[Hg] 81 mm[Hg] Mike Mina [facility] 3 10:37:08 Date Recorded Body height Provider Name an d Address Organization Details Last Updated DateTime 05/06/2023 175.26 cm Ammy Brown CNM, [facility] [address], [place], [address] 05/06/2023 12:04:52 Date Recorded Body height Body mass index (BMI) Body weight Heart rate Systolic blood pressure Diastolic blood pressure Provider Name and Address Organization Details Last Updated DateTime 3 175.26 cm 23.1 kg/m2 17893.8 5 g 63 /min 106 mm[Hg] 69 mm[Hg] Mike Mina [facility] 3 10:31:36 Social History Question Answer Notes LastModified by Organizat ion Details LastModified Time Tobacco Smoking Status Never Smoker Mike Enriquez [facility] 04/16/2023 10:45:54 What Is Your Level Of Alcohol Consumption? None Information not available 04/16/2023 What Is Your Level Of Caffeine Consumption? Occasional Information not available 04/16/2023 Do You Feel Safe In Your Home? Yes Information not available 04/16/2023 Do You Feel Stressed (tense, Restless, Nervous, Or Anxious, Or Unable To Sleep At Night)? [id number] Information not available 04/16/2023 Do You Use Any Illicit Or Recreational Drugs? No Information not available 04/16/2023 Do You Want To Talk About Contraception Or Prevention During Your Visit Today? No - This Question Does Not Apply To Me/I Prefer Not To Answer Information not available 04/16/2023 Do You Have Any Future Plans To Get ? No, I Don't Want To Become Information not available 04/16/2023 Sex: Unknown Functional Status Question Answer Note LastModified by Organization D etails LastModified Time What is your exercise level? None Information not available 04/16/2023 Mental Status None recorded. Family History Relationship Description Onset Age of this Age Resolved Age Notes LastModified by Organization Details LastModified Time Mother Hypertensive disorder Not available 2022 10:44:40 Sister Autoimmune disease Not available 2022 10:45:06 Father Autoimmune disease Not available 2022 10:45:06 Paternal Aunt Lupus erythematosu s Not available 2022 10:45:19 Maternal Grandfather Malignant tumor of colon Not available 2022 10:45:32 Medical History Condition Response Trauma/Violence N Gynecological History Statement/Question Response Abnormal Pap N Flow Moderate Date of LMP 04/08/2023 STIs/STDs N HPV Vaccine Y Current Control Method None Age at Menarche 12 Sexually Active? Y Menses Monthly Y Date of Last Pap Smear 06/01/2022 Sexual Problems? N LMP Definite Obstetrics History GPAL:G 4 P 0 0 0 3 Type Value Living 3 Total 4 Past Encounters Encounter ID Performer Location Encounter Start Date Encounter Closed Date Diagnosis/Indication Diagnosis SNOMED-CT Code Diagnosis ICD10 Code 201 Ammy Brown CNM, [facility] Main Office [address] [place] [address] 04/16/2023 10:22:59 04/16/2023 12:05:58 Major depressive disorder 467950326 F32.9 Generalize d anxiety disorder 11427709 F41.1 363 Ammy Brown CNM, [facility] Main Office [address] [place] [address] 05/06/2023 12:01:12 05/06/2023 12:35:29 Generalized anxiety disorder 85713341 F41.1 Major depr essive disorder 067863143 F32.9 741 Ammy Brown CNM, [facility] Main Office [address] [place] [address] 06/17/2023 10:26:46 06/17/2023 11:13:26 Contraception care management 259748121 Z30.9 Insomnia 043249404 G47.0 0 [id number] Ammy Brown CNM, [facility] Main Office [address] [place] [address] 08/27/2023 10:47:09 08/27/2023 14:09:02 Gynecologic examination 27760787 Z01.419 Health Concerns Section Related Observation LastModified by Organization Detai ls LastModified Time None Recorded Concern Status LastModified by Organization Details LastModified Time None Recorded Advance Directives Directive None Recorded Payers Encounter Date Sequence Insurance Name Policy Number Policy Díaz Covered Member ID Díaz Member ID Guarantor Name 04/16/2023 1 [employer] [id number] Elvis Monte Logan [id number] Yomaira Logan 05/06/2023 1 [employer] [id number] Elvis Monte Logan [id number] Yomaira Logan 06/17/2023 1 [employer] [id number] Elvis Monte Logan [id number] Yomaira Logan 08/27/2023 1 [employer] [id number] Elvis D Logan [id number] Yomaira Logan Notes Date Note Type Note Provider Name and Address Organization Details Recorded Time 3 text/html Generalized Anxiety DisorderReported bypatient.Severity:mode rate Context:depression Alleviating Factors:diet change Associated Symptoms:tachycardia;sh ortness of breathPsychiatry DepressionReported bypatient.Timing of Symptoms:chronic; constant; nearly every day; premenstrual; worse since December and more consistent. worse with cycle Depression Context:no major life stressors; travels for 6-8 weeks a year, and had just returned home before Depression Severity:moderate Depression Associated Symptoms:has interests and is active; normal speech;hypersomnia;fati mike; sleeping 12-14 Yomaira presented to the office with issues of MS symptoms at cycle time. Her was present and supportive. She states she has been dealing with some MS symptoms over the past decade, but since December 2022 her symptoms have worsened. States that her symptoms seem to be worse at cycle time and that she stopped control a few months ago, and symptoms stayed under control while on control. In December, at cycle time, she experienced weakness, seeing stars, tunnel vision, SOB palpitations, Dizziness, fatigue, Panic, and heat sensitivity. She was seen in the ER on three separate occasions in December for these symptoms. January her symptoms were more stable. On March 10 cycle started. 5 days later was tripping over her left foot, walking very clumsily, and collapsed. At that time started experiencing burning in her left toe which worked it way up the left and up the left side of her body. She states that the feelings of burning and numbness wax and wane- but are always there. On April 08 had the next cycle- she was SOB very winded with walking or any exertions, increased panic and palpitations, ringing in her ears, and body flushing that goes from her head down, She is sleeping 12-14 hours a day. difficulty being able to take care of young children. has been seen by Neurology and cardiology and all testing has turned up normal. Has had a MRI which was incomplete due to having braces, so due to get MRI repeated after braces are removed.She has a strong family history of Autoimmune disease.She has been limiting her caffeine and watching her diet which has made some improvement in her symptoms. She is also seeing a chiropractor every 3 weeks.She is very depressed about how she used to be able to do so much and now how these symptoms have limited her. Anxious about what is to come. Her appetite is lessened. Sleep is 12-14 hours. Mood is Fine, its a normal day, usually best in the morning . she has had thoughts iin March that my family would be better off without me . denies having a plan or ever having a plan to hurt herself. PHQ-9=22. + for depression. ELLI 2 positive. Denies any SI or HI. Denies any AH or VH. Ammy Brown, ENRIQUE, PMHNP- [address], [place], [address], [facility] 04/16/2023 17:10:55 3 text/html Generalized Anxiety DisorderReported bypatient.Severity:mild Context:depression Alleviating Factors:rest; starting magnesium, self care, getting out in the sun Associated Symptoms:no difficulty concentrating; no difficulty controlling worry; no anxiety; no diaphoresis; no hot flashes; no chest pain; no tachycardia; no shortness of breath;fatigueMajor Depressive DisorderReported bypatient.Associated Symptoms:fatigue Met with Yomaira today by telehealth. Yomaira is meeting by telehealth today due to COVID and cannot come in for a visit. doing well at this time with COVID symptoms. Yomaira is following up with anxiety and depression. Last visit had a positive ELLI and a Positive PHQ-9=22. She is feeling much better since our last visit, stating that our last visit was very eye-opening at how bad she was feeling. She decided against starting the Lexapro due to symptoms being mainly around cycle. She denies any thoughts of hopelessness, helplessness, or guilt. She denies any thoughts of SI or HI. Family continues to be very supportive. Keeping herself busy, quilting, going outside and pulling weeds. Sleeping has improved. sleeping 8 hours a night with a decrease in the time she needs to nap. Still states she needs to rest but not napping. appetite has improved, minus the COVID-19- due to covid decreasing her appetite. Still continues to be very fatigued. HAs MRi scheduled for May 15. was seen by the Neurologist since last visit and is being referred [facility] for MS symptoms. Ammy Brown CNM, [facility]- [address], [place], [address], [facility] 05/06/2023 15:30:04 3 text/html Yomaira presents to the office today to start the control pill. has been on Loloestrin in the past and did well on it. LMP , to start ocp Friday following cycle starting. has had a vasectomy so not planning on using it for control but using it for normalizing hormones. states that VUONG symptoms during cycle. Very tired including sob, and dizziness before and during the cycle. Day 20 of cycle is when feels the best. Numbness or pin and needles of left side of body. Motor function is decreased mainly left side including left chest tightness. has a history of flares with interstitial cystitis that seems to be cyclical.MRI normal, Saw neurologist recently and suspect diagnosis of VUONG.no history of any clotting disordersHas periods when she struggles with insomnia, Ammy Brown CNM, [facility]- [address], [place], [address], [facility] 06/17/2023 11:57:30 3 text/html Annual GYNReported bypatient.History:Pelvi c pain left side that started early August Menstrual cycle:normal menses; first cycle after starting ocp was light lasting 2-3 days. Cycle in August was heavy followed by pelvic pain that lasted until 2 days ago. Urinary symptoms:no hematuria; no incontinence Vulva:no genital lesion Vagina:normal vaginal discharge Breast:no breast pain; no breast lump; no nipple discharge Current Contraception:satisfied with current contraception; monogamous relationship Sexual complaints:normal libido; Pain with intercourse during the time she was experiencing pelvic pain Menopausal Symptoms:no menopausal symptoms; normal vaginal lubrication Psychological symptoms:no depression; no anxiety; no PMDD Preventive measures:encourage self breast examination; encourage regular exercise; followed with Q3 year pap smear and high risk HPV typing Doing well. doing well with Loloestrin. 1st cycle was light and lasted 23 days. 2nd cycle was heavy and followed by left sided pelvic pain. @nd cycle started after having a GI bug. Pelvic pain improved 2 days ago.HAs appt with specialist in april for VUONG A[facility] Brown CN[facility], [facility] [address], [place], [address], [facility] 08/27/2023 14:08:21 OBGyn Episode No OBEpisode recorded.
--- OUTSIDE RECORDS SUMMARY | 2024-08-28 02:32 | XMS_ITS | Encounter Summary ---
Author Organization [facility] Address [address] [place] [address] Phone Care Team Providers Care Foreign Law Consultant Name Role Phone Orin Bond NP Primary Care Provide r Malia Field Unavailable [phone] Encounter Details Date Type Department Care Team (Late st Contact Info) Description 07/03/2023 Telephone [facility] Cardiology [address] [facility] Advanced Medicine 8th [place] [address] [place] [address] Caroline Marsh MD [address] [place] [address] Social History Tobacco Use Types Packs/Day Years [...] on file Legal Sex Female 9:03 PM [employer] Gender Identity Not on file Sexual Orientation Not on file documented as of this encounter Miscellaneous Notes * Telephone Encounter - Latoya Carson - 07/03/2023 2:29 PM CDT Spoke w/pt and she is scheduled for 07/16/23 at 9:40 am * Telephone Encounter - Latoya Carson - 07/03/2023 2:29 PM CDT ----- Message from Mary York RN sent at 07/03/2023 2:00 PM CDT ----- Regardin/15 appt Hi there, this is the other pt needing seen as ROV on 07/16. Thank you! Dolores, Nurse Coordinator for Dr. Konrad Bullard and Dr. Caroline Marsh documented in this encounter Plan of Treatment Not on file documented as of this encounter Visit Diagnoses Not on filedocumented in this encounter Care Teams Foreign Law Consultant Relationship Specialty Start Date End Date Orin Bond NP [address] [place] [address] PCP - General Emergency Medicine 01/16/23 Malia Field, [employer] SERVICE AIDE [address] [place] [address] Neurologist 06/25/23 documented as of this encounter
--- OUTSIDE RECORDS SUMMARY | 2024-08-28 02:32 | XMS_ITS | Encounter Summary ---
Author Organization [facility] Address [address] [place] [address] Phone Care Team Providers Care Egg Separator Name Role Phone Orin Bond NP Primary Care Provide r Malia Field Unavailable [phone] Encounter Details Date Type Department Care Team (Late st Contact Info) Description 07/16/2023 9:40 AM CAPACITOR ASSEMBLER Office Visit [facility] Cardiology [address] Advanced Medicine 8th [place] [address] [place] [address] Caroline Marsh MD [address] [place] [address] POTS (postural orthostatic tachycardia syndrome) (Primary Dx) [...] on file Legal Sex Female 9:03 PM CAPACITOR ASSEMBLER Gender Identity Not on file Sexual Orientation Not on file documented as of this encounter Last Filed Vital Signs Vital Sign Reading Time Taken Comments Blood Pressure 108/76 07/16/2023 10:28 AM CAPACITOR ASSEMBLER Pulse 57 07/16/2023 10:28 AM CAPACITOR ASSEMBLER Temperature - - Respiratory Rate - - Oxygen Saturation 100% 07/16/2023 10: 28 AM CAPACITOR ASSEMBLER Inhaled Oxygen Concentration - - Weight 71.6 kg (157 lb 12.8 oz) 023 10:28 AM CAPACITOR ASSEMBLER Height 175.3 cm (5' 9 ) 07/16/2023 10:2 8 AM CAPACITOR ASSEMBLER Body Mass Index 23.3 07/16/2023 10:28 AM CAPACITOR ASSEMBLER documented in this encounter Patient Instructions * Patient Instructions* Mary York RN - 07/16/2023 9:40 AM CAPACITOR ASSEMBLER For questions, concerns, or updates, please call the Heart Failure office at . Thank you! AVTAR Bernalsecond chef Failure/Furnace Caretaker for Dr. Caroline Marsh Plan for today: Medicine changes: No changes Testing:None Follow up: 6 months Miscellaneous: CITOR ASSEMBLER CITOR ASSEMBLER documented in this encounter Progress Notes * Elzbieta Perrin MD - 07/16/2023 9:40 AM CST Images from the original note were not included. Department of Medicine Cardiovascular Division Advanced Heart Failure/Cardiac Transplantation RETURN OFFICE VISIT Date: 07/16/2023 Chief Complaint: Interval History and ROS: Patient was last seen in at which time plan was to start a gentle exercise program. Since then, she has been feeling better with introduction of recumbent exercises. She had one majorepisode of elevated HR's earlier this week after eating significant junk food , sleeping poorly, and having caffeine. She reports her HR's went up to 170's while exercising and then improved after re sting. She is wearing compressions socks for symptom management. Compression stockings were too tight and uncomfortable. Allergies: Allergies Allergen Reactions Gadoteridol Hives, Itching and Rash Pt received Prohance 16ml. Itchy throat, rash, and hives developed within a few minutes. Dr Hairston examined patient. Patient held for 30 minutes, no worsening symptoms. 06/06/23-pt completed MRI/MRA Brain & Neck w/wo using License Buddy MRI contast- premedicated 13 hour regimen successfully with no issues Current Medications: Current Outpatient Medications on File Prior to Visit Medication Sig Dispense Refill Lo Loestrin Fe 1 mg-10 mcg (24)/10 mcg (2) tablet per tablet TAKE 1 TABLET BY MOUTH EVERY DAY 84 tablet 3 No current facility-administered medications on file prior to visit. Physical Examination: Vital signs: Vitals BP 108/76 Pulse 57 Ht 175.3 cm (5' 9 ) Wt 71.6 kg (157 lb 12.8 oz) SpO2 100% BMI 23.30 kg/m?? General: No acute distress or discomfort HEENT: Anicteric sclerae, moist mucous membranes, no thyromegaly Cardiovascular: RRR, normal S1-2, no m/r/g Lungs: Clear to auscultation bilaterally; no wheezes, rhonchi, or rales Abdomen: Non-distended, normoactive bowel sounds, soft, non-tender to palpation, no hepatosplenomegaly Neuro: Alert, oriented, moves all extremities well Skin: No significant rashes/lesions Extremities: No edema, Warm and well perfused Psych: Normal mood and affect Diagnostic Studies Labs: Chemistry Lab Results Component [...] 142 LDL 68 HDL 64 Previous EK Previous Cardiac Studies: TTE: None DAILY: No priors [facility] Cath: No priors OSH Imagin TTE Report Normal LV size and function LV EF 60-65% RV normal size and function Normal atrial sizes Mild MR, no prolapse Mild TR, No other valve disease 2018 Holter Duration 30 days No A Fib Non-cardiac Imaging: None Assessment and Plan: # POTS # Palpitations # Dyspnea on exertion # [...] multiple sclerosis. TSH was WNL in 12/2022. 06/2023 autoimmune/inflammatory process with ESR, CRP, GEE, RF, ds-DNA, ANCA, SSA,SSB, Arron: Renin, ADH were unremarkable. She denies significant family history of cardiovascular disease. This seems most consistent with Postural tachycardia syndrome (PoTS). - Encouraged on going, progressive exercise regimen - Encouraged agian patient on the importance of continuing PO intake to 3-4 L per day, salt intake to at least 2 tablespoons per day, use of high waisted compression stockings, and a regimen for exercise. - We recommend continued reduction caffeine/alcohol intake - We reminded her to follow up with her primary neurologist regarding migraine prophylaxis as thereis data showing this may help with management of PoTS Follow-up: Return in about 6 months (around 01/14/2024). Elzbieta Perrin MD Furnace Caretaker, PGY-5 11:21 AM 07/16/23 Cosigned by Caroline Marsh MD at 08/15/2023 9:05 AM CAPACITOR ASSEMBLER CITOR ASSEMBLER CITOR ASSEMBLER documented in this encounter Plan of Treatment Not on file documented as of this encounter Visit Diagnoses Diagnosis POTS (postural orthostatic tachycardia syndrome)- Primary Unspecified tachycardia documented in this encounter Care Teams Egg Separator Relationship Specialty Start Date End Date Orin Bond NP [address] [place] [address] PCP - General Emergency Medicine 01/16/23 Malia Field, SPLICER MACHINE OPERATOR [address] [place] [address] Neurologist 06/25/23 documented as of this encounter
--- OUTSIDE RECORDS SUMMARY | 2024-08-28 02:32 | XMS_ITS | Encounter Summary ---
Author Organization [facility] Address [address] [place] [address] Care Team Providers Care Senior Pricing Analyst Name Role Phone Orin Bond NP Primary Care Provide r Malia Field ORDER CHECKER PACKER PROCESSER Unavailable [phone] Reason for Referral * MRI/CAT/PET Scan (Routine) - Closed Specialty Diagnoses / Procedures Referred By Contac t Referred To Contact Radiology Diagnoses POTS (postural orthostatic tachycardia syndrome) Procedures CT Abdomen Pelvis W Contrast Yolanda Mosher MD PhD [address] [facility] [id number] [place] [address] Phone: tel: fax: [facility] [address] [place] [address] Referral ID Status Reason Start Date Expiration Date Visits Re quested Visits Authorized [id number] Closed 09/09/2023 03/07/2024 1 1 CTOR OF PHYSICAL SECURITY Reason for Visit * MRI/CAT/PET Scan (Routine) - Closed Specialty Diagnoses / Procedures Referred By Contac t Referred To Contact Radiology Diagnoses POTS (postural orthostatic tachycardia syndrome) Procedures CT Abdomen Pelvis W Contrast Yolanda Mosher MD PhD [address] [facility] [id number] [place] [address] Phone: tel: fax: [facility] [address] [facility] [place] [address] Referral ID Status Reason Start Date Expiration Date Visits Re quested Visits Authorized [id number] Closed 09/09/2023 03/07/2024 1 1 Encounter Details Date Type Department Care Team (Late st Contact Info) Description 09/18/2023 9:40 AM DIRECTOR OF PHYSICAL SECURITY - 09/18/2023 11:59 PM DIRECTOR OF PHYSICAL SECURITY Hospital Encounter [facility] [address] [place] [address] Yolanda Mosher MD PhD [address] [facility] [id number] [place] [address] POTS (postural orthostatic tachycardia syndrome) Discharge Disposition: [...] on file Legal Sex Female 9:03 PM DIRECTOR OF PHYSICAL SECURITY Gender Identity Not on file Sexual Orientation [...] or self care documented in this encounter Plan of Treatment Not on file documented as of this encounter Procedures Procedure Name Priority Date/Time Associated Diagnosis Comments CT ABDOMEN PELVIS W CONTRAST Schedule Routine, Read Routine (OP Routine) 09/18/2023 11:34 AM DIRECTOR OF PHYSICAL SECURITY POTS (postural orthostatic tachycardia syndrome) POCT CREATININE - DEVICE Routine 09/18/2023 10:47 AM DIRECTOR OF PHYSICAL SECURITY documented in this encounter Results * CT Abdomen Pelvis W Contrast (09/18/2023 11:34 AM DIRECTOR OF PHYSICAL SECURITY) Anatomical Region Laterality Modality Body N/A Computed Tomogra phy 09/18/2023 12:1 4 PM DIRECTOR OF PHYSICAL SECURITY Impressions 09/18/2023 12:14 PM DIRECTOR OF PHYSICAL SECURITY No acute process identified in the abdomen and pelvis. Electronically signed by: Fanta Bauer M.D. Narrative 09/18/2023 12:14 PM DIRECTOR OF PHYSICAL SECURITY EXAMINATION: ??Computed tomography of the abdomen and [...] PhD IMG CT PROCEDURES Final Result * (ABNORMAL) POCT creatinine (09/18/2023 10:47 AM DIRECTOR OF PHYSICAL SECURITY) Creatinine POC 0.5(L) 0.6 - 1.1 mg/dL [facility] Blood 09/18/2023 10:4 7 AM DIRECTOR OF PHYSICAL SECURITY 09/18/2023 10:47 AM DIRECTOR OF PHYSICAL SECURITY Yolanda Mosher MD PhD LAB POCT ORDERABLE S - DEVICE Final Result [facility] [address] [facility] [place] [address] documented in this encounter Visit Diagnoses Diagnosis POTS (postural orthostatic tachycardia syndrome) Unspecified tachycardia documented in this encounter Administered Medications Inactive Administered Medications - up to 3 most recent administrations Medication Order MAR Action Action Date Dose Rate Site ioversoL (OPTIRAY 350) injection 100 mL 100 mL, intravenous, Once in imaging, contrast, Starting on Mildred 09/18/23 at 1122, For 1 dose Contrast Given 09/18/2023 11:29 AM DIRECTOR OF PHYSICAL SECURITY 75 mL documented in this encounter Orders Medications Ordered That Mehdi ht Not Have Been Administered Count Last Ordered Date First Ordered Date ioversoL (OPTIRAY 350) injection 100 mL 1 0 09/18/2023 documented in this encounter Care Teams Senior Pricing Analyst Relationship Specialty Start Date End Date Orin Bond NP [address] [place] [address] PCP - General Emergency Medicine 01/16/23 Malia Field, ORDER CHECKER PACKER PROCESSER [address] [place] [address] Neurologist 06/25/23 documented as of this encounter
--- OUTSIDE RECORDS SUMMARY | 2024-08-28 02:33 | XMS_ITS | Encounter Summary ---
Author Organization [facility] Healthcare Address [address] [place] [address] Care Team Providers Care Horse Trader Name Role Phone Aishwarya Boazsebastianjanis Mccann Primary Care Provider Un available Encounter Details Date Type Department Care Team (Late st Contact Info) Description 04/28/2015 4:36 PM CDT - 04/28/2015 11:59 PM CDT Hospital Encounter [facility] Josué Cat MD [address] [place] [address] DR FROST [address] [place] [id number] Threatened , antepartum Social History Tobacco Use Types Packs/Day Years Used Date Smoking Tobacco: Never Assessed Comments Unknown Sex and Gender Information Value Date Recorded Sex Assigned at Not on file Legal Sex Female 9:03 PM EXHIBITION CARVER Gender Identity Not on file Sexual Orientation Not on file documented as of this encounter Medications at Time of Discharge calcium carbonate (CALCIUM 600) 1,500 mg (600 mg of elemental calcium) tablet take 1 by Oral route once 0 0 02/21/2015 10/04/2019 vit iron epu-nehlu-sed ( 19, WITH DOCUSATE,) 29 mg iron- 1 mg-25 mg tablet take 1 tablet by oral route every day 0 12/07/2010 10/04/2019 documented as of this encounter Plan of Treatment Not on file documented as of this encounter Procedures Procedure Name Priority Date/Time Associated Diagnosis Comments SERUM CHORIONIC GONADOTROPIN (HCG), QUANTITATIVE Routine 04/28/2015 4:50 PM CDT BLOOD INDIRECT ANTIGLOBULIN TEST Routine 04/28/2015 4:50 PM CDT BLOOD ABO, RH Routine 04/28/2015 4:50 PM CDT SERUM PROGESTERONE Routine 04/28/2015 11 :50 AM CDT DISCHARGE LABORATORY CUMULATIVE REPORT 04/28/2015 documented in this encounter Results * Blood ABO, Rh (04/28/2015 4:50 PM CDT) ABO, Rho (D) interp O Positive HISTORICAL RESULTS Blood specimen (specimen) 04/28/2015 4:50 PM CDT Historical Provider MD LAB BLOOD ORDERABLES Adriana l Result Performing Organization Address [facility] de Phone Number HISTORICAL RESULTS * Blood indirect antiglobulin test (04/28/2015 4:50 PM CDT) Musa, indirect Negative ABSC HISTORICAL RESULTS Blood specimen (specimen) 04/28/2015 4:50 PM CDT Historical Provider MD LAB BLOOD ORDERABLES Adriana l Result Performing Organization Address [facility] de Phone Number HISTORICAL RESULTS * (ABNORMAL) Serum chorionic gonadotropin (HCG), quantitative (04/28/2015 4:50 PM CDT) HCG, quant 24861.0(H ) 0.0 - 5.0 IUnits/L HISTORICAL RESULTS Comment: Interpretive Data Negative: ? <5 mIU/mL ? Borderline: ??6-25 mIU/mL Positive: ? >25 mIU/mL Approx Gest Age ? Approx HCG Concentration 3 - 4 Weeks ?9 - 130 4 - 5 Weeks ?75 - 2600 5 - 6 Weeks ?850 - 20,800 6 - 7 Weeks ?4000 - 100,200 7 - 12 Weeks ? [address] - 289,000 16 - 29 Weeks ? [address] - 137,000 29 - 41 Weeks ? 900 - 60,000 Current interpretive data was last revised on 2015 Serum 04/28/2015 4:50 PM CDT us Historical Provider MD LAB BLOOD ORDERABLES Adriana bustamante Result HISTORICAL RESULTS * Serum progesterone (04/28/2015 11:50 AM CDT) [facility] Progesterone 13.0 ng/ml HISTORI MIQUEL RESULTS Comment: Progesterone Reference Ranges: Female ?? <10 years ?<0.9 ng/ml ?? Mid-Follicular ? <1.6 ng/ml ?? Mid-Luteal ?5.0 - 18.6 ng/ml ?? Post Menopausal ? <0.8 ng/ml Female ?? 1st Trimester ? 4.7 ??- 50.7 ?ng/ml ?? 2nd Trimester ?? 19.4 - 45.3 ?ng/ml Male ?<0.9 ng/ml Test performed at [facility], [address] [place] [address], [place]., [address] Serum 04/28/2015 11:5 0 AM CDT Narrative HISTORICAL RESULTS - 05/01/2015 10:50 AM CDT FAX RESULTS TO [phone] us Historical Provider LAB BLOOD ORDERABLES Adriana l Result HISTORICAL RESULTS * DISCHARGE LABORATORY CUMULATIVE REPORT (04/28/2015) Narrative 04/28/2015 Ordered by an unspecified provider. us Historical Provider LAB BLOOD ORDERABLES Adriana l Result documented in this encounter Visit Diagnoses Diagnosis Threatened , antepartum documented in this encounter Care Teams Horse Trader Relationship Specialty Start Date End Date Lawrence Neff PCP - General 09/24/13 11/28/16 documented as of this encounter
--- OUTSIDE RECORDS SUMMARY | 2024-08-28 02:33 | XMS_ITS | Encounter Summary ---
Author Organization [facility] Address [address] [place] [address] Care Team Providers Care Computer Forwarding System Markup Clerk Name Role Phone No, Physician Primary Care Provider [phone] Reason for Visit * Reason Onset Date Comments Test Results 03/15/2022 Encounter Details Date Type Department Care Team (Late st Contact Info) Description 03/15/2022 Telephone [facility] [address] [place] [phone] Mary Montiel MA Test Results Social History Tobacco Use Types Packs/Day Years Used Date Smoking Tobacco: Never Smokeless Tobacco: Never Alcohol Use Standard Drinks/Week Comments No 0 (1 standard drink = 0.6 oz pur e alcohol) PHQ-2 Answer Date Recorded PHQ-2 Total Score (If total score is 3 or more points, staff should administer the PHQ-9) 0 03/05/2022 Comments No Sex and Gender Information Value Date Recorded Sex Assigned at Not on file Legal Sex Female 9:03 PM MILL TENDER WASHING Gender Identity Not on file Sexual Orientation Not on file documented as of this encounter Miscellaneous Notes * Telephone Encounter - Mary Montiel MA - 03/15/2022 4:35 PM CDT Pt made aware. Pt states she was given estrogen cream at last appt. And is doing much better * Telephone Encounter - Mary Montiel MA - 03/15/2022 1:44 PM CDT Lm for pt to call office regarding negative urine cx results. documented in this encounter Plan of Treatment Not on file documented as of this encounter Visit Diagnoses Not on filedocumented in this encounter Care Teams Computer Forwarding System Markup Clerk Relationship Specialty Start Date End Date No, Physician PCP - General 08/08/17 01/15/23 documented as of this encounter
--- OUTSIDE RECORDS SUMMARY | 2024-08-28 02:33 | XMS_ITS | Encounter Summary ---
Author Organization [facility] Healthcare Address [address] [place] [address] Care Team Providers Care Rail Project Engineer Name Role Phone No, Physician Primary Care Provider [phone] Reason for Visit * Reason Comments Palpitations Chest Pain Encounter Details Date Type Department Care Team (Late st Contact Info) Description 09/21/2017 2:01 PM INSURANCE ACCOUNT MANAGER - 09/21/2017 4:35 PM INSURANCE ACCOUNT MANAGER Emergency [facility] Emergency Department [address] [place] [address] Chris Fish MD [address] [place] [address] Palpitations (Primary Dx) Discharge Disposition: Discharge to home or self care Social History Tobacco Use Types Packs/Day Years Used Date Smoking Tobacco: Never Smokeless Tobacco: Never Comments No Sex and Gender Information Value Date Recorded Sex Assigned at Not on file Legal Sex Female 9:03 PM INSURANCE ACCOUNT MANAGER Gender Identity Not on file Sexual Orientation Not on file documented as of this encounter Last Filed Vital Signs Vital Sign Reading Time Taken Comments Blood Pressure 95/68 09/21/2017 4:15 PM INSURANCE ACCOUNT MANAGER Pulse 70 09/21/2017 4:15 PM INSURANCE ACCOUNT MANAGER Temperature 36.4 ??C (97.6 ??F) 09/21/2017 2:33 PM CS T Respiratory Rate 10 09/21/2017 4:15 PM INSURANCE ACCOUNT MANAGER Oxygen Saturation 99% 09/21/2017 4:15 PM INSURANCE ACCOUNT MANAGER Inhaled Oxygen Concentration - - Weight 70.3 kg (155 lb) 09/21/2017 2:33 PM INSURANCE ACCOUNT MANAGER Height 175.3 cm (5' 9 ) 09/21/2017 2:33 PM INSURANCE ACCOUNT MANAGER Body Mass Index 22.89 09/21/2017 2:33 PM INSURANCE ACCOUNT MANAGER documented in this encounter Discharge Instructions * Attachments The following attachments cannot be sent through Care Everywhere. * Palpitations (Lube Worker) (Bolivian) documented in this encounter Medications at Time of Discharge calcium carbonate (CALCIUM 600) 1,500 mg (600 mg of elemental calcium) tablet take 1 by Oral route once 0 0 02/21/2015 10/04/2019 cholecalciferol (VITAMIN D3) 1,000 unit capsule take 1 by Oral route once 0 0 01/10/2017 09/28/2018 vit iron [id number] ( 19, WITH DOCUSATE,) 29 mg iron- 1 mg-25 mg tablet take 1 tablet by oral route every day 0 12/07/2010 10/04/2019 documented as of this encounter Discharge Disposition Disposition Code Departure Means Destination Discharge to home or self care documented in this encounter ED Notes * Nettie Vang RN - 09/21/2017 2:34 PM CST Chest tightness, palpitations, lightheaded. RANCE ACCOUNT MANAGER * Chris Fish MD - 09/21/2017 2:19 PM CST HPI Chief Complaint Patient presents with ??? Palpitations ??? Chest Pain HPI 1419: Pt is a 27 y/o female presenting to the ED c/o chest tightness for four days. Pt reports having a sudden onset of palpitations, diaphoresis, and left arm numbness four days ago while at work. The symptoms lasted for one minute and then resolved with rest. Since then she has had ongoing chest tightness, some shortness of breath, and occasional light headedness. She denies ever having these symptoms before. Pt denies cough, congestion, or sore throat. No family history of heart disease. Pt has three children; the youngest is 9 months whom she is still nursing. Patient History Past Medical History: Diagnosis Date ??? HX OTHER MEDICAL Hx chronic dysuria ??? HX OTHER MEDICAL management; Outcome: Live infant ??? HX OTHER MEDICAL ; Outcome: Live ??? HX OTHER MEDICAL ; Outcome: 41 Weeks week 8lb(s) 9 oz ??? HX OTHER MEDICAL ; Outcome: 41 Weeks week 8 lb(s) 2 oz Female ??? HX OTHER MEDICAL ; Outcome: 40W0D week 7lb(s) 11 oz Male Past Surgical History: Procedure Laterality Date ??? OTHER SURGICAL HISTORY Hx chronic dysuria: Abx tx; responded to zyrtec ??? OTHER SURGICAL HISTORY 2013 : ??? OTHER SURGICAL HISTORY 2013 : ??? OTHER SURGICAL HISTORY 2010 : ??? OTHER SURGICAL HISTORY 2016 : 8 hr labor Family History Problem Relation Age of Onset ??? Hypertension Mother Hypertension; ??? Asthma Father Asthma; ??? Diabetes Maternal Grandfather Diabetes mellitus; ??? Cancer Maternal Grandfather Cancer; ??? Colon cancer Maternal Grandfather Cancer, colon; ??? Anemia Brother Anemia; ??? Osteoporosis Maternal Grandmother Osteoporosis; Social History Substance Use Topics ??? Smoking status: Never Smoker ??? Smokeless tobacco: Never Used ??? Alcohol use Not on file Review of Systems Review of Systems Constitutional: Negative for chills and fever. HENT: Negative for ear pain and sore throat. Eyes: Negative for pain and visual disturbance. Respiratory: Positive for chest tightness and shortness of breath. Negative for cough. Cardiovascular: Negative for chest pain and palpitations. Gastrointestinal: Negative for abdominal pain and vomiting. Genitourinary: Negative for dysuria and hematuria. Musculoskeletal: Negative for arthralgias and back pain. Skin: Negative for color change and rash. Neurological: Positive for dizziness. Negative for seizures and syncope. All other systems reviewed and are negative. Physical Exam ED Triage Vitals Temp Pulse Resp BP SpO2 -- -- -- -- -- Temp src Heart Rate Source Patient Position BP Location FiO2 (%) -- -- -- -- -- Physical Exam Constitutional: She appears well-developed and well-nourished. No distress. HENT: Head: Normocephalic and atraumatic. Eyes: Conjunctivae are normal. Neck: Neck supple. Cardiovascular: Normal rate and regular rhythm. No murmur heard. Pulmonary/Chest: Effort normal and breath sounds normal. No respiratory distress. Abdominal: Soft. There is no tenderness. Musculoskeletal: She exhibits no edema. Neurological: She is alert. Skin: Skin is warm and dry. Psychiatric: She has a normal mood and affect. Nursing note and vitals reviewed. ED Course & MDM Vitals: 09/21/17 1525 BP: Pulse: 73 Resp: 15 Temp: SpO2: 98% Labs Reviewed CBC WITH AUTO DIFFERENTIAL - Abnormal Result Value WBC 7.15 RBC 3.97 Hgb 12.4 Hct 35.6 (*) MCV 89.7 MCH 31.2 MCHC 34.8 RDW CV 12.0 RDW SD 39.2 Platelets 229 MPV 9.6 NRBC 0.0 NRBC Abs 0.00 Narrative: COMPREHENSIVE METABOLIC PANEL - Abnormal Sodium 142 Potassium 3.5 CO2 27 BUN 9 Glucose 94 Creatinine 0.53 (*) Calcium 9.3 Chloride 103 Albumin 4.8 AST 14 ALT 10 Alk phos 65 Bilirubin 0.3 Protein, pl 7.4 Anion Gap 12 Narrative: TROPONIN T Troponin T <0.01 Narrative: TSH Thyroid Stimulating Hormone 0.51 Narrative: HCG, BLOOD, QUANTITATIVE HCG, quant <5 Narrative: URINALYSIS AND REFLEX TO MICROSCOPIC AND CULTURE Color, ur Yellow Clarity, ur Clear Specific gravity, ur 1.000 pH, ur 7.0 Protein, ur Negative Glucose, ur Negative Ketones, ur Negative Bilirubin, ur Negative Blood, ur Negative Urobilinogen, ur 0.2 Nitrites, ur Negative Leukocyte esterase, ur Negative Narrative: DIFFERENTIAL AUTO Neutrophils 65.2 Immature granulocytes 0.3 Lymphocytes 25.0 Monos 8.0 Eosinophils 1.4 Basophils 0.1 Neutrophil absolute 4.66 Immature granulocyte, abs 0.02 Lymphocytes, abs 1.79 Monos, abs 0.57 Eosinophils, abs 0.10 Basophils, abs 0.01 Narrative: EGFR GFR >60 Narrative: [facility] Palpitations 3:44 PM: This note is prepared by Nay De Leon, acting as a scribe for Chris Fish MD. I electronically signed this note at 3:44 PM on 09/21/2017. I, Chris Fish MD, have personally performed the services described in the documentation, reviewed the documentation, as recorded by the scribe in my presence, and it accurately and completely records my words and actions. Chris Fish MD 09/21/17 1544 RANCE ACCOUNT MANAGER documented in this encounter Plan of Treatment Not on file documented as of this encounter Procedures Procedure Name Priority Date/Time Associated Diagnosis Comments URINALYSIS AND REFLEX TO MICROSCOPIC AND CULTURE STAT 09/21/2017 2:53 PM INSURANCE ACCOUNT MANAGER EGFR STAT 09/21/2017 2:38 PM INSURANCE ACCOUNT MANAGER DIFFERENTIAL AUTO STAT 09/21/2017 2:3 8 PM INSURANCE ACCOUNT MANAGER CBC WITH AUTO DIFFERENTIAL STAT 09/21/2017 2:38 PM INSURANCE ACCOUNT MANAGER HCG, BLOOD, QUANTITATIVE STAT 09/21/2017 2:38 PM INSURANCE ACCOUNT MANAGER TROPONIN T STAT 09/21/2017 2:38 PM INSURANCE ACCOUNT MANAGER TSH STAT 09/21/2017 2:38 PM INSURANCE ACCOUNT MANAGER COMPREHENSIVE METABOLIC PANEL STAT 09/21/2017 2:38 PM INSURANCE ACCOUNT MANAGER DISCHARGE LABORATORY CUMULATIVE REPORT 09/21/2017 12:00 AM INSURANCE ACCOUNT MANAGER documented in this encounter Results * Urinalysis reflex to microscopic and culture (09/21/2017 2:53 PM INSURANCE ACCOUNT MANAGER) Color, ur Yellow Yellow [facility] ([place]) Clarity, ur Clear Clear [facility] ([place]) Specific gravity, ur 1.000 1.003 - 1.030 [facility] ([place]) Comment:Normal Ranges: 1.003 -1.030 pH, ur 7.0 4.5 - 8.0 [facility] ([place]) Comment:Normal ranges: 4.5-8 .0 Protein, ur ql Negative Negative mg/dL [facility] ([place]) Glucose, ur ql Negative Negative mg/dL [facility] ([place]) Ketones, ur Negative Negative [facility] ([place]) Bilirubin, ur Negative Negative [facility] ([place]) Blood, ur Negative Negative [facility] ([place]) Urobilinogen, ur 0.2 0.2 - 1.0 [facility] ([place]) Comment:Normal Ranges: 0.2-1 .0 EU/dL Nitrites, ur Negative Negative [facility] ([place]) Leukocyte esterase, ur Negative Negative [facility] Urine 09/21/2017 2:53 PM INSURANCE ACCOUNT MANAGER 09/21/2017 2:55 PM INSURANCE ACCOUNT MANAGER Narrative [facility] ([place]) - 09/21/2017 3:35 PM INSURANCE ACCOUNT MANAGER us Chris Fish MD LAB MICROBIOLOGY - GENE RAL ORDERABLES Final Result [facility] ([place]) 1 [facility] Department [place] [address] * eGFR (09/21/2017 2:38 PM INSURANCE ACCOUNT MANAGER) eGFR >60 mL/min/1.7 3 m2 [facility] ([place]) Comment: Interpretive Data Reference Interval Normal ?>/= 90 mL/min/1.73m2 Mildly decreased* ? 60 - 89 mL/min/1.73m2 Mildly to moderately decreased ?45 - 59 mL/min/1.73m2 Moderately to severely decreased ??30 - 44 mL/min/1.73m2 Severely decreased ?15 - 29 mL/min/1.73m2 Kidney Failure ?< 15 ??mL/min/1.73m2 *Relative to young adult level If -Chinese multiply value by 1.16. Estimated glomerular filtration rate is determined by the CKD-EPI equation recommended by the National Kidney Foundation (KDIGO 2012 Clinical Practice Guideline for the Evaluation and Management of Chronic Kidney Disease. Kidney Intnl Suppl Sep 2012;3:1). The CKD-EPI equation should not be used for patients with unstable renal function and has not been validated in children and those over 70. Current interpretive data was last reviewed 2016. Blood specimen (specimen) 09/21/2017 2:38 PM INSURANCE ACCOUNT MANAGER 09/21/2017 2:41 PM INSURANCE ACCOUNT MANAGER Narrative [facility] ([place]) - 09/21/2017 3:09 PM INSURANCE ACCOUNT MANAGER us Chris Fish MD LAB BLOOD ORDERABLES Fi nal Result [facility] ([place]) 1 [facility] Department [place] [address] * Differential, auto (09/21/2017 2:38 PM INSURANCE ACCOUNT MANAGER) Neutrophil pct 65.2 44.0 - 80.0 % [facility] ([place]) Imm gran pct 0.3 0.0 - 1.0 % [facility] ([place]) Lymphocyte pct 25.0 13.0 - 44.0 % [facility] ([place]) Monocyte pct 8.0 2.0 - 11.0 % [facility] ([place]) Eosinophil pct 1.4 0.0 - 6.0 % [facility] ([place]) Basophil pct 0.1 0.0 - 3.0 % [facility] ([place]) Neutrophil abs 4.66 1.60 - 7.00 K/cumm [facility] ([place]) Imm gran abs 0.02 0.00 - 0.20 K/cumm [facility] ([place]) Lymphocyte abs 1.79 0.50 - 4.30 K/cumm [facility] ([place]) Monocyte abs 0.57 0.10 - 1.00 K/cumm [facility] ([place]) Eosinophil abs 0.10 0.00 - 0.60 K/cumm [facility] ([place]) Basophil abs 0.01 0.00 - 0.30 K/cumm [facility] ([place]) Blood specimen (specimen) 09/21/2017 2:38 PM INSURANCE ACCOUNT MANAGER 09/21/2017 2:41 PM INSURANCE ACCOUNT MANAGER Narrative [facility] ([place]) - 09/21/2017 2:44 PM INSURANCE ACCOUNT MANAGER Chris Fish MD LAB BLOOD ORDERABLES Fi nal Result [facility] ([place]) 1 [facility] Department [place] [address] * hCG, blood, quantitative (09/21/2017 2:38 PM INSURANCE ACCOUNT MANAGER) hCG, quant <5 0 - 5 mIUnits/mL [facility] ([place]) Comment: Interpretive Data Negative: ? <5 mIU/mL ? Borderline: ??6-25 mIU/mL Positive: ? >25 mIU/mL Approx Gest Age ? Approx HCG Concentration 3 - 4 Weeks ?9 - 130 4 - 5 Weeks ?75 - 2600 5 - 6 Weeks ?850 - 20,800 6 - 7 Weeks ?4000 - 100,200 7 - 12 Weeks ? [address] - 289,000 16 - 29 Weeks ? [address] - 137,000 29 - 41 Weeks ? 900 - 60,000 Current interpretive data was last revised on 2015 Blood specimen (specimen) 09/21/2017 2:38 PM INSURANCE ACCOUNT MANAGER 09/21/2017 2:41 PM INSURANCE ACCOUNT MANAGER Narrative [facility] ([place]) - 09/21/2017 3:09 PM INSURANCE ACCOUNT MANAGER us Chris Fish MD LAB BLOOD ORDERABLES Fi nal Result [facility] ([place]) 1 [facility] [place] [address] * TSH (09/21/2017 2:38 PM INSURANCE ACCOUNT MANAGER) Thyroid Stimulating Hormone 0.51 0.30 - 5.00 mcIUnit/mL [facility] ([place]) Blood specimen (specimen) 09/21/2017 2:38 PM INSURANCE ACCOUNT MANAGER 09/21/2017 2:41 PM INSURANCE ACCOUNT MANAGER Narrative [facility] ([place]) - 09/21/2017 3:14 PM INSURANCE ACCOUNT MANAGER Chris Fish MD LAB BLOOD ORDERABLES Fi nal Result Performing Organization Address City/[facility] Co de Phone Number [facility] ([place]) 1 [facility] [place] [address] * Troponin T (09/21/2017 2:38 PM INSURANCE ACCOUNT MANAGER) Troponin T <0.01 0.00 - 0.06 ng/mL [facility] ([place]) Comment: Interpretive Data Troponin table: ? Negative ? 0.00-0.06 ng/ml ? Indeterminate ?0.07-0.10 ng/ml ? Consistent with Myocardial Injury ?Greater than 0.10 ng/ml ?? Current interpretive data was last revised on 2014 Blood specimen (specimen) 09/21/2017 2:38 PM INSURANCE ACCOUNT MANAGER 09/21/2017 2:41 PM INSURANCE ACCOUNT MANAGER Narrative [facility] ([place]) - 09/21/2017 3:14 PM INSURANCE ACCOUNT MANAGER Chris Fish MD LAB BLOOD ORDERABLES Fi nal Result [facility] ([place]) 1 [facility] Department [place] [address] * (ABNORMAL) Comprehensive metabolic panel (09/21/2017 2:38 PM INSURANCE ACCOUNT MANAGER) Sodium 142 135 - 145 mmol/L [facility] ([place]) Potassium, pl 3.5 3.3 - 4.9 mmol/L [facility] ([place]) CO2 27 22 - 32 mmol/L [facility] ([place]) BUN 9 8 - 25 mg/dL [facility] ([place]) Glucose 94 70 - 199 mg/dL [facility] ([place]) Comment: Interpretive Data Fasting glucose >/= 126 mg/dl is diagnostic for diabetes. ?? Fasting is defined as no caloric intake for at least 8 hours. Fasting glucose between 100 mg/dl to 125 mg/dl is diagnostic of prediabetes. In a patient with classic symptoms of hyperglycemia or hyperglycemic crisis, a random glucose >/= 200 mg/dl is diagnostic for diabetes. In the absence of unequivocal hyperglycemia, results should be confirmed by repeat testing. The classification and Diagnosis of Diabetes Diabetes Care 2017;40 (Suppl. 1):S11. Current interpretive data was last revised 2017. Creatinine 0.53(L) 0.60 - 1.10 mg/dL [facility] ([place]) Calcium 9.3 8.5 - 10.3 mg/dL [facility] ([place]) Chloride 103 97 - 110 mmol/L [facility] ([place]) Albumin 4.8 3.5 - 5.0 g/dL [facility] ([place]) AST 14 10 - 45 Units/L [facility] ([place]) ALT 10 7 - 45 Units/L [facility] ([place]) Alk phos 65 40 - 130 Units/L [facility] ([place]) Bilirubin, total 0.3 0.1 - 1.2 mg/dL [facility] ([place]) Protein, pl 7.4 6.5 - 8.5 g/dL [facility] ([place]) Anion gap 12 2 - 15 mmol/L [facility] ([place]) Blood specimen (specimen) 09/21/2017 2:38 PM INSURANCE ACCOUNT MANAGER 09/21/2017 2:41 PM INSURANCE ACCOUNT MANAGER Narrative [facility] ([place]) - 09/21/2017 3:09 PM INSURANCE ACCOUNT MANAGER Chris Fish MD LAB BLOOD ORDERABLES Fi nal Result [facility] ([place]) 1 [facility] Department [place] [address] * (ABNORMAL) CBC with auto differential (09/21/2017 2:38 PM INSURANCE ACCOUNT MANAGER) WBC 7.15 3.80 - 9.80 K/cumm [facility] ([place]) RBC 3.97 3.90 - 5.00 M/cumm [facility] ([place]) Hgb 12.4 12.1 - 15.1 g/dL [facility] ([place]) Hct 35.6(L) 36.1 - 44.3 % [facility] ([place]) MCV 89.7 80.0 - 100.0 fL [facility] ([place]) MCH 31.2 26.7 - 33.7 pg [facility] ([place]) MCHC 34.8 32.7 - 36.0 g/dL [facility] ([place]) RDW CV 12.0 11.5 - 14.6 % [facility] ([place]) RDW SD 39.2 38.0 - 56.6 fL [facility] ([place]) Plt 229 140 - 440 K/cumm [facility] ([place]) MPV 9.6 8.0 - 12.0 fL [facility] ([place]) NRBC 0.0 0.0 - 0.0 % [facility] ([place]) NRBC abs 0.00 0.00 - 0.00 K/cumm [facility] ([place]) Blood specimen (specimen) 09/21/2017 2:38 PM INSURANCE ACCOUNT MANAGER 09/21/2017 2:41 PM INSURANCE ACCOUNT MANAGER Narrative [facility] ([place]) - 09/21/2017 2:44 PM INSURANCE ACCOUNT MANAGER Chris Fish MD LAB BLOOD ORDERABLES Fi nal Result [facility] ([place]) 1 [facility] Department [place] [address] * DISCHARGE LABORATORY CUMULATIVE REPORT (09/21/2017 12:00 AM INSURANCE ACCOUNT MANAGER) Narrative 09/21/2017 12:00 AM INSURANCE ACCOUNT MANAGER Ordered by an unspecified provider. us Historical Provider LAB BLOOD ORDERABLES Adriana l Result documented in this encounter Visit Diagnoses Diagnosis Palpitations- Primary documented in this encounter Orders EKG Orders Without Results Count Last Ordered D ate First Ordered Date ECG 12-LEAD 1 09/21/2017 documented in this encounter Care Teams Rail Project Engineer Relationship Specialty Start Date End Date No, Physician PCP - General 08/08/17 01/15/23 documented as of this encounter
--- OUTSIDE RECORDS SUMMARY | 2024-08-28 02:33 | XMS_ITS | Encounter Summary ---
Author Organization [facility] Healthcare Address [address] [place] [address] Care Team Providers Care Asbestos Cloth Inspector Name Role Phone RadharigobertoLawrence Primary Care Provider Un available Encounter Details Date Type Department Care Team (Latest Contact Info) Description 08/08/2015 5:38 AM ROTARY DRYER OPERATOR - 08/08/2015 6:59 AM ROTARY DRYER OPERATOR Hospital Encounter [facility] Anatoliy Singh MD [address] [facility] [address] [place] [address] Noninfective gastroenteritis and colitis Social History Tobacco Use Types Packs/Day Years Used Date Smoking Tobacco: Never Assessed Comments Unknown Sex and Gender Information Value Date Recorded Sex Assigned at Not on file Legal Sex Female 9:03 PM ROTARY DRYER OPERATOR Gender Identity Not on file Sexual Orientation Not on file documented as of this encounter Medications at Time of Discharge calcium carbonate (CALCIUM 600) 1,500 mg (600 mg of elemental calcium) tablet take 1 by Oral route once 0 0 02/21/2015 10/04/2019 vit iron [id number] ( 19, WITH DOCUSATE,) 29 mg iron- 1 mg-25 mg tablet take 1 tablet by oral route every day 0 12/07/2010 10/04/2019 documented as of this encounter Plan of Treatment Not on file documented as of this encounter Procedures Procedure Name Priority Date/Time Associated Diagnosis Comments URINE MICROSCOPY Routine 08/08/2015 6:00 AM ROTARY DRYER OPERATOR URINE CHORIONIC GONADOTROPIN (HCG) Routine 08/08/2015 6:00 AM ROTARY DRYER OPERATOR URINALYSIS Routine 08/08/2015 6:00 AM ROTARY DRYER OPERATOR SERUM LIPASE Routine 08/08/2015 5:51 AM ROTARY DRYER OPERATOR SERUM ESTIMATED GLOMERULAR FILTRATION RATE Routine 08/08/2015 5:51 AM ROTARY DRYER OPERATOR SERUM AMYLASE Routine 08/08/2015 5:51 AM ROTARY DRYER OPERATOR PLASMA COMPREHENSIVE METABOLIC PANEL Routine 08/08/2015 5:51 AM ROTARY DRYER OPERATOR BLOOD CELL COUNT (CBC), MORPHOLOGIC EXAM Routine 08/08/2015 5:51 AM ROTARY DRYER OPERATOR BLOOD CELL MORPHOLOGIC EXAM Routine 08/08/2015 5:51 AM ROTARY DRYER OPERATOR DISCHARGE LABORATORY CUMULATIVE REPORT 08/08/2015 documented in this encounter Results * Urine chorionic gonadotropin (HCG) (08/08/2015 6:00 AM ROTARY DRYER OPERATOR) HCG, ur Negative Negative HISTORICAL RESULTS Urine 08/08/2015 6:00 AM ROTARY DRYER OPERATOR us Historical Provider LAB BLOOD ORDERABLES Adriana l Result HISTORICAL RESULTS * (ABNORMAL) Urinalysis (08/08/2015 6:00 AM ROTARY DRYER OPERATOR) Color, ur Dark Yellow Yellow HISTORIC AL RESULTS Clarity, ur Cloudy(A) Clear HISTORIC AL RESULTS Specific gravity, ur 1.030 1.003 - 1.030 HISTORICAL RESULTS Comment:Normal Ranges: 1.003 -1.030 pH, ur 5.5 4.5 - 8.0 HISTORICAL RESULTS Comment:Normal ranges: 4.5-8 .0 Protein, ur, quant Trace Negative mg/dl HISTORICAL RESULTS Glucose, ur, quant Negative Negative mg/dl HISTORICAL RESULTS Ketones, ur 40(A) Negative HISTORIC AL RESULTS Bilirubin, ur Negative Negative HISTOR ICAL RESULTS U Blood Negative Negative HISTORICAL RESULTS Urobilinogen, quant, ur 0.2 0.2 - 1.0 Kami Units/dl HISTORICAL RESULTS Comment:Normal Ranges: 0.2-1 .0 EU/dL Nitrites, ur Negative Negative HISTORI MIQUEL RESULTS Leukocyte esterase, ur Negative Negative HISTORICAL RESULTS Urine 08/08/2015 6:00 AM ROTARY DRYER OPERATOR [facility] Provider LAB BLOOD ORDERABLES Adriana l Result Performing Organization Address [facility] de Phone Number HISTORICAL RESULTS * (ABNORMAL) Urine microscopy (08/08/2015 6:00 AM ROTARY DRYER OPERATOR) RBC, ur 5 - 10(A) 0 - 2 /hpf HISTORICA L RESULTS WBC, ur 2 - 5(A) 0 - 2 /hpf HISTORICA L RESULTS Bacteria, ur Negative Negative HISTORI MIQUEL RESULTS Mucus, ur Present(A) Not Present HISTORI MIQUEL RESULTS Hyaline casts 10 - 30(A) 0 - 2 /lpf HIST ORICAL RESULTS Epithelial cells, ur 10 - 25(A) 0 - 2 /hpf HISTORICAL RESULTS Urine 08/08/2015 6:00 AM ROTARY DRYER OPERATOR [facility] Provider LAB BLOOD ORDERABLES Adriana l Result Performing Organization Address [facility] de Phone Number HISTORICAL RESULTS * (ABNORMAL) Plasma comprehensive metabolic panel (08/08/2015 5:51 AM ROTARY DRYER OPERATOR) Sodium 140 135 - 145 mmol/L HISTORICAL RESULTS K, pl 3.4(L) 3.5 - 5.1 mmol/L HISTORICAL RESULTS Chloride 100 97 - 110 mmol/L HISTORICAL RESULTS CO2 26 22 - 32 mmol/L HISTORICAL RESULTS A. gap 17(H) 8 - 16 mmol/L HISTORICAL RESULTS Glucose 114 70 - 199 mg/dl HISTORICAL RESULTS Comment: Interpretive Data Note:The glucose is assumed non fasting Fastin-99 mg/dL Random: ??70-199 mg/dL Either a fasting glucose > 126 mg/dL or a random glucose > 200 mg/dL plus symptoms is diagnostic of diabetes when confirmed on another day. Fasting values > 100 mg/dL but < 125 mg/dL are diagnostic of impaired fasting glucose. Current interpretive data was last revised on 2014. BUN 14.1 8.0 - 25.0 mg/dl HISTORICAL RESULTS Creatinine 0.65 0.60 - 1.10 mg/dl HISTORICAL RESULTS BUN/creat ratio 22(H) 10 - 20 HIST ORICAL RESULTS Calcium 8.9 8.6 - 10.2 mg/dl HISTORICAL RESULTS Protein, sr 8.1 6.0 - 8.4 g/dl HISTORICAL RESULTS Alb 4.4 3.6 - 5.0 g/dl HISTORICAL RESULTS Alb/glob ratio 1.2 1.1 - 1.8 ratio HISTORICAL RESULTS Alk phos 48 40 - 130 Units/L HISTORICAL RESULTS ALT 13 5 - 45 Units/L HISTORICAL RESULTS AST 17 10 - 40 Units/L HISTORICAL RESULTS Bilirubin 0.9 <=1.2 mg/dl HISTORICAL RESULTS Plasma 08/08/2015 5:51 AM ROTARY DRYER OPERATOR Result [facility] Historical Provider MD LAB BLOOD ORDERABLES Adriana l Result Performing Organization Address City/[facility] Co de Phone Number HISTORICAL RESULTS * Serum lipase (08/08/2015 5:51 AM ROTARY DRYER OPERATOR) Lip 18 10 - 70 Units/L HISTORICAL RESULTS Serum 08/08/2015 5:51 AM ROTARY DRYER OPERATOR Result [facility] Provider LAB BLOOD ORDERABLES Adriana l Result Performing Organization Address City/[facility] Co de Phone Number HISTORICAL RESULTS * Serum amylase (08/08/2015 5:51 AM ROTARY DRYER OPERATOR) Irina, pl 44 30 - 100 Units/L HISTORICAL RESULTS Serum 08/08/2015 5:51 AM ROTARY DRYER OPERATOR Historical Provider LAB BLOOD ORDERABLES Adriana l Result Performing Organization Address City/[facility] Co de Phone Number HISTORICAL RESULTS * (ABNORMAL) Blood cell morphologic exam (08/08/2015 5:51 AM ROTARY DRYER OPERATOR) Neutrophils 92.1(H) 44.0 - 80.0 % HISTORICAL RESULTS Immature granulocytes 0.3 0.0 - 1.0 % HISTORICAL RESULTS Lymphocytes 4.1(L) 13.0 - 44.0 % HISTORICAL RESULTS Monos 3.3 2.0 - 11.0 % HISTORICAL RESULTS Eosinophils 0.1 0.0 - 6.0 % HISTORICAL RESULTS Basophils 0.1 0.0 - 3.0 % HISTORICAL RESULTS Neutrophils, abs 12.5(H) 1.6 - 7.0 K/cumm HISTORICAL RESULTS Immature granulocyte, abs 0.04 0.00 - 0.20 K/cumm HISTORICAL RESULTS Lymphocytes, abs 0.6 0.5 - 4.3 K/cumm HISTORICAL RESULTS Monocytes, absolute 0.4 0.1 - 1.0 K/cumm HISTORICAL RESULTS Eosinophils, abs 0.0 0.0 - 0.6 K/cumm HISTORICAL RESULTS Basophils, abs 0.0 0.0 - 0.3 K/cumm HISTORICAL RESULTS Blood specimen (specimen) 08/08/2015 5:51 AM ROTARY DRYER OPERATOR Historical Provider LAB BLOOD ORDERABLES Adriana l Result HISTORICAL RESULTS * (ABNORMAL) Blood cell count (CBC), morphologic exam (08/08/2015 5:51 AM ROTARY DRYER OPERATOR) WBC 13.6(H) 3.8 - 9.8 K/cumm HISTORICAL RESULTS RBC 4.21 3.90 - 5.00 M/cumm HISTORICAL RESULTS Hgb 12.8 12.1 - 15.1 g/dl HISTORICAL RESULTS Hct 38.6 36.1 - 44.3 % HISTORICAL RESULTS MCV 91.7 80.0 - 100.0 fl HISTORICAL RESULTS MCH 30.4 26.7 - 33.7 pg HISTORICAL RESULTS MCHC 33.2 32.7 - 36.0 g/dl HISTORICAL RESULTS Rdw 11.9 11.5 - 14.6 % HISTORICAL RESULTS Platelets 245 140 - 440 K/cumm HISTORICAL RESULTS MPV 9.5 8.0 - 12.0 fl HISTORICAL RESULTS NRBC 0.0 0.0 - 0.0 % HISTORIC AL RESULTS NRBC, abs 0.00 0.00 - 0.00 K/cumm HISTORICAL RESULTS Blood specimen (specimen) 08/08/2015 5:51 AM ROTARY DRYER OPERATOR us Historical Provider LAB BLOOD ORDERABLES Adriana l Result HISTORICAL RESULTS * Serum estimated glomerular filtration rate (08/08/2015 5:51 AM ROTARY DRYER OPERATOR) eGFR >60 ml/min/1.7 3 m2 HISTORICAL RESULTS Comment: Interpretation of Estimated GFR (eGFR): Normal ?>/= 60 mL/min/1.73m2 Possible Chronic Kidney Disease ??15 - 59 mL/min/1.73m2 Possible Kidney Failure ?< 15 ??mL/min/1.73m2 If -[place] multiply value by 1.16. ??Estimated glomerular filtration rate is determined by the CKD-EPI equation recommended by the National Kidney Foundation (KDIGO 2012 Clinical Practice Guideline for the Evaluation and Management of Chronic Kidney Disease. ??Kidney Intnl Suppl Sep 2012;3:1). ??The CKD-EPI equation should not be used in acute renal failure or acute kidney injury and is not valid in children. Serum 08/08/2015 5:51 AM ROTARY DRYER OPERATOR Result [facility] Provider LAB BLOOD ORDERABLES Adriana l Result Performing Organization Address [facility] Co de Phone Number HISTORICAL RESULTS * DISCHARGE LABORATORY CUMULATIVE REPORT (08/08/2015) Narrative 08/08/2015 Ordered by an unspecified provider. Result [facility] Provider LAB BLOOD ORDERABLES Adriana l Result documented in this encounter Visit Diagnoses Diagnosis Noninfective gastroenteritis and colitis documented in this encounter Care Teams Asbestos Cloth Inspector Relationship Specialty Start Date End Date Lawrence Neff PCP - General 09/24/13 11/28/16 documented as of this encounter
--- OUTSIDE RECORDS SUMMARY | 2024-08-28 02:33 | XMS_ITS | Encounter Summary ---
Author Organization [facility] Medical Group Address [address] [place] [address] Care Team Providers Care Military Aircraft Designer Name Role Phone No, Physician Primary Care Provider [phone] Reason for Visit * Reason Comments Gynecologic Exam Encounter Details Date Type Department Care Team (Late st Contact Info) Description 08/08/2017 10:15 AM CENTRIFUGAL OPERATOR Office Visit [facility] [address] [place] [address] Danielle Zamudio NP [address] [place], [place] [address] [place], [place] [id number] Well woman exam (Primary Dx) Social History Tobacco Use Types Packs/Day Years Used Date Smoking Tobacco: Never Smokeless Tobacco: Never Comments No Sex and Gender Information Value Date Recorded Sex Assigned at Not on file Legal Sex Female 9:03 PM CENTRIFUGAL OPERATOR Gender Identity Not on file Sexual Orientation Not on file documented as of this encounter Last Filed Vital Signs Vital Sign Reading Time Taken Comments Blood Pressure 118/70 08/08/2017 11:14 AM CENTRIFUGAL OPERATOR Pulse - - Temperature - - Respiratory Rate - - Oxygen Saturation - - Inhaled Oxygen Concentration - - Weight 72.1 kg (159 lb) 08/08/2017 11:14 AM CENTRIFUGAL OPERATOR Height 175.3 cm (5' 9 ) 08/08/2017 11:14 AM CENTRIFUGAL OPERATOR Body Mass Index 23.48 08/08/2017 11:14 AM CENTRIFUGAL OPERATOR documented in this encounter Progress Notes * Danielle Zamudio NP - 08/08/2017 10:15 AM CST Well Woman Exam Subjective: Yomaira Ford is a 27 y.o. MWF, who presents for a well woman exam. Contraception:None--- / condoms Menstrual History: No LMP recorded. Sexual History: OB History No data available Past Medical History: Diagnosis Date ??? HX OTHER MEDICAL Hx chronic dysuria ??? HX OTHER MEDICAL management; Outcome: Live infant ??? HX OTHER MEDICAL ; Outcome: Live infant ??? HX OTHER MEDICAL ; Outcome: 41 Weeks week 8lb(s) 9 oz ??? HX OTHER MEDICAL ; Outcome: 41 Weeks week 8 lb(s) 2 oz Female ??? HX OTHER MEDICAL ; Outcome: 40W0D week 7lb(s) 11 oz Male Current Outpatient Prescriptions: ??? calcium carbonate (CALCIUM 600) 1,500 mg (600 mg of elemental calcium) tablet, take 1 by Oral route once, Disp: 0, Rfl: 0 ??? cholecalciferol (VITAMIN D3) 1,000 unit capsule, take 1 by Oral route once, Disp: 0, Rfl: 0 ??? prenat 115-iron [id number] ( 19, WITH DOCUSATE,) 29 mg iron- 1 mg-25 mg tablet, take1 tablet by oral route every day, Disp: , Rfl: 0 No Known Allergies Family History Problem Relation Age of Onset ??? Hypertension Mother Hypertension; ??? Asthma Father Asthma; ??? Diabetes Maternal Grandfather Diabetes mellitus; ??? Anemia Brother Anemia; ??? Cancer Maternal Grandfather Cancer; ??? Colon cancer Maternal Grandfather Cancer, colon; ??? Osteoporosis Maternal Grandmother Osteoporosis; Social History Social History ??? Marital status: Spouse name: N/A ??? Number of children: N/A ??? Years of education: N/A Social History Main Topics ??? Smoking status: Not on file ??? Smokeless tobacco: Not on file ??? Alcohol use Not on file ??? Drug use: Unknown ??? Sexual activity: Not on file Other Topics Concern ??? Not on file Social History Narrative ??? No narrative on file Review of Systems Constitutional: Negative for chills, fatigue, fever and unexpected weight change. HENT: Negative for hearing loss, sore throat, tinnitus and trouble swallowing. Eyes: Negative for pain and visual disturbance. Respiratory: Negative for cough, shortness of breath and wheezing. Cardiovascular: Negative for chest pain, palpitations and leg swelling. Gastrointestinal: Negative for abdominal pain, blood in stool, constipation, diarrhea, nausea and vomiting. Endocrine: Negative for cold intolerance, heat intolerance and polydipsia. Genitourinary: Negative for dyspareunia, dysuria, frequency, hematuria, menstrual problem, pelvic pain, vaginal bleeding and vaginal discharge. Musculoskeletal: Positive for back pain. Negative for arthralgias, joint swelling and myalgias. Skin: Negative for color change and rash. Neurological: Negative for dizziness, numbness and headaches. Hematological: Does not bruise/bleed easily. Psychiatric/Behavioral: Negative for dysphoric mood, sleep disturbance and suicidal ideas. The patient is not nervous/anxious. Objective: There were no vitals taken for this visit. Physical Exam Constitutional: She is oriented to person, place, and time. She appears well- developed and well-nourished. No distress. HENT: Head: Normocephalic. Eyes: Pupils are equal, round, and reactive to light. Right eye exhibits no discharge. Left eye exhibits no discharge. Neck: Normal range of motion. No thyromegaly present. Cardiovascular: Normal rate, regular rhythm and normal heart sounds. Exam reveals no gallop and no friction rub. No murmur heard. Pulmonary/Chest: Effort normal and breath sounds normal. No respiratory distress. Right breast exhibits no mass. Left breast exhibits no mass. Breasts are symmetrical. There is no breast swelling. Abdominal: Soft. Bowel sounds are normal. There is no tenderness. Genitourinary: Vagina normal and uterus normal. No breast tenderness, discharge or bleeding. Pelvicexam was performed with patient supine. There is no lesion on the right labia. There is no lesion on the left labia. Cervix exhibits no motion tenderness, no discharge and no friability. Right adnexum displays no tenderness. Left adnexum displays no tenderness. No vaginal discharge found. Musculoskeletal: Normal range of motion. She exhibits no edema, tenderness or deformity. Lymphadenopathy: She has no cervical adenopathy. Right: No inguinal adenopathy present. Left: No inguinal adenopathy present. Neurological: She is alert and oriented to person, place, and time. She has normal reflexes. Skin: Skin is warm and dry. Psychiatric: She has a normal mood and affect. Her behavior is normal. Vitals reviewed. Immunizations: discussed. Assessment and Plan: Normal exam. Diagnoses and all orders for this visit: Well woman exam (Primary) Recommended screenings and preventive care discussed: Breast cancer: Breast Self Exam encouraged. Pap with reflex done Low fat diet and exercise encouraged. Danielle Zamudio NP 08/08/2017 RIFUGAL OPERATOR documented in this encounter Plan of Treatment Not on file documented as of this encounter Procedures Procedure Name Priority Date/Time Associated Diagnosis Comments THINPREP IMAGING PAP REFLEX HPV DNA Routine 08/08/2017 12:14 PM CENTRIFUGAL OPERATOR Well woman exam documented in this encounter Results * ThinPrep Imaging Pap Reflex HPV DNA (08/08/2017 12:14 PM CENTRIFUGAL OPERATOR) Report status CANCELED [facility] Comment:Result canceled by t he ancillary CLINICAL INFORMATION: [facility] Comment:Information not prov ided LMP [facility] Comment:INFORMATION NOT PROV IDED Previous Pap [facility] Comment:INFORMATION NOT PROV IDED Prev. Bx [facility] Comment:INFORMATION NOT PROV IDED SOURCE: [facility] Comment:Information not prov ided Pap, specimen adequacy [facility] Comment: Satisfactory for evaluation. Endocervical/transformation zone component present. Age and/or menstrual status not provided Pap, general categorization [facility]CELED [facility] Comment:Result canceled by t he ancillary HPV interp [facility] Comment:Negative for intraep ithelial lesion or malignancy. Infection: CANCELED [facility] Comment:Result canceled by t he ancillary COMMENTS [facility] Comment: This Pap test has been evaluated with computer assisted technology. [facility] [place] Comment: REBEKAH, CT(ASCP) CT screening location: [place] [address] [place] [address] Review rescue instructor CANCELED [facility] Comment:Result canceled by t he ancillary Pathologist [facility]CELED [facility] Comment:Result canceled by t he ancillary Endocervical/vag inal 08/08/2017 12:14 PM CENTRIFUGAL OPERATOR 08/11/2017 8:57 AM CENTRIFUGAL OPERATOR Narrative Resulting Agency Comment Performing Organization Information: ?Site ID: ?Name: [facility] ?Address: [address] [place] [address] ?Director: Shilpi Taylor MD us Danielle Zamudio [facility] PATHOLOGY ORDERABLES Final Result [facility] [place] documented in this encounter Visit Diagnoses Diagnosis Well woman exam- Primary Routine general medical examination at a health care facility documented in this encounter Care Teams Military Aircraft Designer Relationship Specialty Start Date End Date No, Physician PCP - General 08/08/17 01/15/23 documented as of this encounter
--- OUTSIDE RECORDS SUMMARY | 2024-08-28 02:33 | XMS_ITS | Encounter Summary ---
Author Organization [facility] Medical [facility] Address [address] [place] [address] Care Team Providers Care Software Development Advisor Name Role Phone No, Physician Primary Care Provider [phone] Reason for Visit * Cardiology (Routine) - Closed Specialty Diagnoses / Procedures Referred By Charlene t Referred To Contact Diagnoses Palpitations Procedures Event Monitor, 30 Day Event Cynthia Gross PA Phone: tel: fax: Referral ID Status Reason Start Date Expiration Date Visits Re quested Visits Authorized [id number] Closed 09/27/2017 03/26/2018 1 1 Encounter Details Date Type Department Care Team (Late st Contact Info) Description 10/03/2017 10:00 AM STEREOTYPER HELPER Ancillary Procedure [facility] Medical [facility] Cardiology [address] [place] [address] Palpitations Social History Tobacco Use Types Packs/Day Years Used Date Smoking Tobacco: Never Smokeless Tobacco: Never Comments No Sex and Gender Information Value Date Recorded Sex Assigned at Not on file Legal Sex Female 9:03 PM STEREOTYPER HELPER Gender Identity Not on file Sexual Orientation Not on file documented as of this encounter Procedure Notes * Pato Kinsey MD - 11/01/2017 12:00 AM CST Indication Palpitations. Enrollment Period From 10/03/2017 through 11/01/2017. Prescribing Provider DANISHA Florentino, PA-C Findings A total of 442 hours and 44 minutes of usable data was recorded and analyzed. Average heart rate was 85 beats per minute and in sinus rhythm. Tachycardia was present for 11% of readable data and bradycardia was present for 1% of readable data. No pauses of greater than 3 seconds. Three manually triggered events were posted including dizziness/lightheadedness, which correlated to sinus rhythm/sinus tachycardia, as well as an episode of passed out. Unfortunately, this episodeof passed out correlated to artifact only. Conclusion 1. Underlying normal sinus rhythm with average heart rate of 85 beats per minute. 2. Three manually triggered events as detailed above. Dizziness and lightheadedness correlated to sinus rhythm/sinus tachycardia. Episode of passed out unfortunately correlated to artifact transmission only. 3. EOTYPER HELPER documented in this encounter Plan of Treatment Pending Results Name Type Priority Associated Diagnoses Date /Time Event Monitor, 30 Day Event Cardiac Services Routine Palpitations 10/03/2017 10:34 AM STEREOTYPER HELPER documented as of this encounter Visit Diagnoses Diagnosis Palpitations documented in this encounter Care Teams Software Development Advisor Relationship Specialty Start Date End Date No, Physician PCP - General 08/08/17 01/15/23 documented as of this encounter
--- OUTSIDE RECORDS SUMMARY | 2024-08-28 02:33 | XMS_ITS | Encounter Summary ---
Author Organization [facility] Address [address] [place] [address] Care Team Providers Care Senior Gis Analyst Name Role Phone No, Physician Primary Care Provider [phone] Reason for Visit * Reason Comments Gynecologic Exam Encounter Details Date Type Department Care Team (Late st Contact Info) Description 02/12/2021 3:30 PM CDT Office Visit Kevin Lobo [address] [facility] [address] [place] [id number] Danielle Zamudio, SARAH [address] 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 Gender Identity Not on file Sexual Orientation Not on file documented as of this encounter Last Filed Vital Signs Vital Sign Reading Time Taken Comments Blood Pressure 114/60 02/12/2021 3:31 PM CDT Pulse - - Temperature - - Respiratory Rate - - Oxygen Saturation - - Inhaled Oxygen Concentration - - Weight 72.1 kg (159 lb) 02/12/2021 3:31 PM CDT Height 175.3 cm (5' 9 ) 02/12/2021 3:31 PM CDT Body Mass Index 23.48 02/12/2021 3:31 PM CDT documented in this encounter Ordered Prescriptions Prescription Sig Dispense Quantity Refills Last Filled Start Date End Date Lo Loestrin Fe 1 mg-10 mcg (24)/10 mcg (2) tablet Take 1 tablet by mouth daily 84 tablet 3 02/14/2021 03/05/2022 documented in this encounter Progress Notes * Danielle Zamudio, PARKING ATTENDANT - 02/12/2021 3:30 PM CDT Images from the original note were not included. Well Woman Exam Subjective: Yomaira Ford is a 30 y.o. MWF, who presents for a well woman exam; needs a pap; amenorrheic usually on Lo Loestrin but did bleed heavy last month---usually only spots every couple of months; is presently without a PCP right now and would like some routine Contraception:Oral contraception Menstrual History: No LMP recorded. (Menstrual status: Oral Contraception). Sexual History: OB History 4 Para 3 Term 3 AB 1 Living 3 SAB 1 TAB Ectopic Multiple Live Births 3 # Outcome Date GA Labor/2nd Weight Sex Delivery Anes PTL Lv A1 A5 1 Term Vag-Spont Living 2 Term Vag-Spont Living 3 Term Vag-Spont Living 4 SAB Past Medical History: Diagnosis Date ??? HX OTHER MEDICAL Hx chronic dysuria ??? HX OTHER MEDICAL management; Outcome: Live ??? HX OTHER MEDICAL ; Outcome: Live infant ??? HX OTHER MEDICAL ; Outcome: 41 Weeks week 8lb(s) 9 oz ??? HX OTHER MEDICAL ; Outcome: 41 Weeks week 8 lb(s) 2 oz Female ??? HX OTHER MEDICAL ; Outcome: 40W0D week 7lb(s) 11 oz Male Current Outpatient Medications: ??? Lo Loestrin Fe 1 mg-10 mcg (24)/10 mcg (2) tablet, TAKE 1 TABLET BY MOUTH EVERY DAY, Disp: 84 tablet, Rfl: 3 No Known Allergies Family History Problem Relation Age of Onset ??? Hypertension Mother Hypertension; ??? Asthma Father Asthma; ??? Diabetes Maternal Grandfather Diabetes mellitus; ??? Cancer Maternal Grandfather Cancer; ??? Colon cancer Maternal Grandfather Cancer, colon; ??? Anemia Brother Anemia; ??? Osteoporosis Maternal Grandmother Osteoporosis; Social History Socioeconomic History ??? Marital status: Spouse name: None ??? Number of children: None ??? Years of education: None ??? Highest education level: None Occupational History ??? None Tobacco Use ??? Smoking status: Never Smoker ??? Smokeless tobacco: Never Used Substance and Sexual Activity ??? Alcohol use: No ??? Drug use: No ??? Sexual activity: Yes Partners: Male Other Topics Concern ??? None Social History Narrative ??? None Social Determinants of Health Financial Resource Strain: ??? Difficulty of Paying Living Expenses: Food Insecurity: ??? Worried About Running Out of Food in the Last Year: ??? Ran Out of Food in the Last Year: Transportation Needs: ??? Lack of Transportation (Medical): ??? Lack of Transportation (Non-Medical): Physical Activity: ??? Days of Exercise per Week: ??? Minutes of Exercise per Session: Stress: ??? Feeling of Stress : Social Connections: ??? Frequency of Communication with Friends and Family: ??? Frequency of Social Gatherings with Friends and Family: ??? Attends Mormon Services: ??? Active Member of Clubs or Organizations: ??? Attends Club or Organization Meetings: ??? Marital Status: Intimate Partner Violence: ??? Fear of Current or Ex-Partner: ??? Emotionally Abused: ??? Physically Abused: ??? Sexually Abused: Review of Systems Constitutional: Negative for chills, [...] pain, vaginal bleeding and vaginal discharge. Musculoskeletal: Negative for arthralgias, back pain, joint swelling and myalgias. Skin: Negative for color change and rash. Neurological: Negative for dizziness, numbness and headaches. Hematological: Does not bruise/bleed easily. Psychiatric/Behavioral: Negative for dysphoric mood, sleep disturbance and suicidal ideas. The patient is not nervous/anxious. Objective: BP 114/60 (BP Location: Right arm, Patient Position: Sitting) Ht 175.3 cm (5' 9 ) Wt 159 lb (72.1 kg) BMI 23.48 kg/m?? Physical Exam Vitals reviewed. Constitutional: General: She is not in acute distress. Appearance: She is well-developed. HENT: Head: Normocephalic. Eyes: General: Right eye: No discharge. Left eye: No discharge. Pupils: Pupils are equal, round, and reactive to light. Neck: Thyroid: No thyromegaly. Comments: No thyromegaly or tenderness; hard firm lymph node noted under right chin---pt states hashad it for yeaes and has not changed---old PCP aware; enc to call if she feel it is getting bigger. Cardiovascular: Rate and Rhythm: Normal rate and regular rhythm. Heart sounds: Normal heart sounds. No murmur heard. No friction rub. No gallop. Pulmonary: Effort: Pulmonary effort is normal. No respiratory distress. Breath sounds: Normal breath sounds. Chest: Breasts: Breasts are symmetrical. Right: No mass. Left: No mass. Abdominal: General: Bowel sounds are normal. Palpations: Abdomen is soft. Tenderness: There is no abdominal tenderness. Comments: No hepatosplenomegaly or tenderness Genitourinary: General: Normal vulva. Exam position: Lithotomy position. Labia: Right: No lesion. Left: No lesion. Vagina: Normal. No vaginal discharge. Cervix: No cervical motion tenderness, discharge or friability. Uterus: Not tender. Adnexa: Right: No tenderness. Left: No tenderness. Musculoskeletal: General: No tenderness or deformity. Normal range of motion. Cervical back: Normal range of motion. Lymphadenopathy: Cervical: No cervical adenopathy. Upper Body: Right upper body: No axillary adenopathy. Left upper body: No axillary adenopathy. Lower Body: No right inguinal adenopathy. No left inguinal adenopathy. Skin: General: Skin is warm and dry. Neurological: Mental Status: She is alert and oriented to person, place, and time. Deep Tendon Reflexes: Reflexes are normal and symmetric. Psychiatric: Mood and Affect: Mood normal. Behavior: Behavior normal. Immunizations: discussed. Assessment and Plan: Normal exam. Diagnoses and all orders for this visit: Well woman exam (Primary) Comments: Await pap results; Bebe Mitchell, 1 tab od x 84 days; disp #3 Pks with #3 RFs; call office with any gyne health issues. Orders: - Pap and High Risk HPV, reflex to Genotyping; Future Healthcare maintenance Comments: Check a CBC, Chem profile, TSH, FT4, Vit D and A1C and await results; referred to [facility] Kaur for PCP services. Orders: - CBC with auto differential; Future - Comprehensive metabolic panel; Future - Lipid panel; Future - TSH; Future - T4, free; Future - Vitamin D 25 hydroxy; Future - Hemoglobin A1c; Future Recommended screenings and preventive care discussed: Breast cancer: Breast Self Exam encouraged. Pap and HR HPV done. and Cholesterol followed by PCP Low fat diet and exercise encouraged. Danielle Zamudio NP 02/12/2021 documented in this encounter Plan of Treatment Scheduled Orders Name Type Priority Associated Diagnoses Order Schedule Pap and High Risk HPV, reflex to Genotyping Pathology and Cytology Routine Well woman exam 1 Occurrences starting 02/12/2021 until 02/12/2022 documented as of this encounter Procedures Procedure Name Priority Date/Time Associated Diagnosis Comments HPV DNA, HIGH RISK, CERV W/RFL GENOTYPES 16,18 Routine 02/12/2021 4:21 PM CDT PAP ONLY Routine 02/12/2021 4:21 PM CDT documented in this encounter Results * HPV DNA, High Risk, Cerv w/reflex Genotypes 16,18 (02/12/2021 4:21 PM CDT) Human papillomavirus DNA, High Risk E6/E7 Not Detected NOT DETECTED [facility] Comment: Not Detected High Risk HPV types (16,18,31,33,35,39,45,51,52, 56,58,59,66,68) were not detected. Other HPV types which cause anogenital lesions may be present. The significance of the other types of HPV in malignant processes has not been established. Methodology: Real Time PCR ? 02/12/2021 4:21 PM CDT 02/13/2021 6:13 AM CDT Danielle Zamudio PARKING ATTENDANT LAB CYTOLOGY ORDERABLES F inal Result TIS[facility] [address] [place] * Pap Only (02/12/2021 4:21 PM CDT) CLINICAL INFORMATION: Tisha Jones Comment:Information not prov ided LMP Tisha Jones Comment:A Previous Pap Tisha Jones Comment:INFORMATION NOT PROV IDED Prev. Bx Tisha Jones Comment:INFORMATION NOT PROV IDED SOURCE: Tisha Jones Comment:Cervix, Endocervix Pap, specimen adequacy Tisha Jones Comment: Satisfactory for evaluation. Endocervical/transformation zone component present. HPV interp Tisha Jones Comment:Negative for intraep ithelial lesion or malignancy. Telephone Quotation Clerk [facility] st Joe Jones Comment: KMS, CT(ASCP) CT Screening location: [place] [address] [place] [address] Comment Tisha Jones Comment: EXPLANATORY NOTE: The Pap is a screening test for cervical cancer. It is not a diagnostic test and is subject to false negative and false positive results. It is most reliable when a satisfactory sample, regularly obtained, is submitted with relevant clinical findings and history, and when the Pap result is evaluated along with historic and current clinical information. 02/12/2021 4:21 PM CDT 02/13/2021 6:13 AM CDT Danielle Zamudio NP LAB CYTOLOGY ORDERABLES F inal Result [employer] [facility] [address] [place] [address] documented in this encounter Visit Diagnoses Diagnosis Well woman exam- Primary Routine general medical examination at a health care facility Healthcare maintenance documented in this encounter Discontinued Medications Medication Sig Discontinue Reason Start Date End Da te Lo Loestrin Fe 1 mg-10 mcg (24)/10 mcg (2) tablet TAKE 1 TABLET BY MOUTH EVERY DAY Reorder 12/11/2020 02/12/2021 documented as of this encounter Care Teams Senior Gis Analyst Relationship Specialty Start Date End Date No, Physician PCP - General 08/08/17 01/15/23 documented as of this encounter
--- OUTSIDE RECORDS SUMMARY | 2024-08-28 02:33 | XMS_ITS | Encounter Summary ---
Author Organization [facility] Address [address] [place] [address] Care Team Providers Care Production Technician Name Role Phone No, Physician Primary Care Provider Reason for Referral * Diagnostic Imaging (Routine) - Closed Specialty Diagnoses / Procedures Referred By Contac t Referred To Contact Diagnoses Menorrhagia with regular cycle Procedures US Pelvis W Endovaginal Josué Vincent MD Phone: tel: fax: [facility] Referral ID Status Reason Start Date Expiration Date Visits Re quested Visits Authorized [id number] Closed 04/17/2018 10/27/2019 1 1 Encounter Details Date Type Department Care Team (Latest Contact Info) Description 04/17/2018 11:30 AM CDT Clinical Support Kevin [facility]BG[facility] Lobo [address] [place] [address] [address], [place] [address] Menorrhagia with regular cycle (Primary Dx) Social History Tobacco Use Types Packs/Day Years Used Date Smoking Tobacco: Never Smokeless Tobacco: Never Alcohol Use Standard Drinks/Week Comments No 0 (1 standard drink = 0.6 oz pur e alcohol) Comments No Sex and Gender Information Value Date Recorded Sex Assigned at Not on file 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 Clinical history Patient presents with painful heavy cycles. Findings Transabdominal and transvaginal pelvic ultrasound examination is performed. Uterus is normal size measuring 6.9 x 4.5 x 4.2 cm and is retroverted. The EMC measures 11 mm which is within normal limits. The right ovary measures 4.1 x 2.7 x 2.5 cm and appears normal. The left ovary measures 3.7 x 2.2 x3.1 cm and contains a collapsing 2.5 x 1.8 x 2.5 cm probable hemorrhagic cyst. Cyst is complex in appearance. There is a mild amount of free fluid around the left ovary and in the cul-de-sac. Impression 1. Normal-appearing uterus. 2. Normal-appearing right ovary. 3. 2.5 cm probable hemorrhagic cyst of the left ovary with a mild amount of surrounding free fluid.Repeat ultrasound can be considered in 6 to 8 weeks to assure resolution if clinically indicated. Job ID/VF Job ID: [id number] documented in this encounter Plan of Treatment Scheduled Orders Name Type Priority Associated Diagnoses Orde r Schedule US Pelvis W Endovaginal Imaging Schedule Routine, Read Routine (OP Routine) Menorrhagia with regular cycle Ordered: 04/17/2018 documented as of this encounter Visit Diagnoses Diagnosis Menorrhagia with regular cycle- Primary documented in this encounter Care Teams Production Technician Relationship Specialty Start Date End Date No, Physician PCP - General 08/08/17 01/15/23 documented as of this encounter
--- OUTSIDE RECORDS SUMMARY | 2024-08-28 02:33 | XMS_ITS | Encounter Summary ---
Author Organization [facility] Care Team Providers Care Relocation Counselor Name Role Phone No, Physician Primary Care Provider [phone] Encounter Details Date Type Department Care Team (Latest Contact Info) Description 10/04/2019 Travel Social History Tobacco Use Types Packs/Day Years Used Date Smoking Tobacco: Never Smokeless Tobacco: Never Alcohol Use Standard Drinks/Week Comments No 0 (1 standard drink = 0.6 oz pur e alcohol) PHQ-2 Answer Date Recorded PHQ-2 Score 0 10/04/2019 Comments No Sex and Gender Information Value Date Recorded Sex Assigned at Not on file 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
--- OUTSIDE RECORDS SUMMARY | 2024-08-28 02:33 | XMS_ITS | Encounter Summary ---
Author Organization [facility] Address [address] [place] [address] Care Team Providers Care Side Sawyer Name Role Phone No, Physician Primary Care Provider [phone] Reason for Visit * Reason Comments Gynecologic Exam Encounter Details Date Type Department Care Team (Late st Contact Info) Description 10/04/2019 10:[address] JUDGE Office Visit [facility] [address] [facility] [address] [facility] [address] [place] [address] Danielle Zamudio, SARAH 4 [facility] [address] [place], [place] [id number] Well woman exam (Primary Dx) Social History [...] on file Legal Sex Female 9:[address] Gender Identity Not on file Sexual Orientation Not on file documented as of this encounter Last Filed Vital Signs Vital Sign Reading Time Taken Comments Blood Pressure 116/70 10/04/2019 10:[address] JUDGE Pulse - - Temperature - - Respiratory Rate - - Oxygen Saturation - - Inhaled Oxygen Concentration - - Weight 71.7 kg (158 lb) 10/04/2019 10:[address] JUDGE Height 175.3 cm (5' 9 ) 10/04/2019 10:[address] JUDGE Body Mass Index 23.33 10/04/2019 10:[address] JUDGE documented in this encounter Ordered Prescriptions Prescription Sig Dispense Quantity Refills Last Filled Start Date End Date norethindrone-e.es tradiol-iron (Lo Loestrin Fe) 1 mg-10 mcg (24)/10 mcg (2) tablet Take 1 tablet by mouth daily 84 tablet 3 10/04/2019 12/11/2020 documented in this encounter Progress Notes * Danielle Zamudio, MEDICAL PHYSIOLOGIST - 10/04/2019 10:15 AM CST Well Woman Exam Subjective: Yomaira Ford is a 29 y.o. MWF, , (young son with her today in exam room) who presents for a well woman exam; current on pap with no hx of abnormals so will defer this year; period about every 4 months on Lo Loestrin. Contraception:Oral contraception Menstrual History: Patient's last menstrual period was 09/13/2019. Sexual History: OB History 4 Para 3 [...] 11 oz Male Current Outpatient Medications: ??? norethindrone-e.estradiol-iron (Lo Loestrin Fe) 1 mg-10 mcg (24)/10 mcg (2) tablet, Take 1 tablet by mouth daily, Disp: 84 tablet, Rfl: 3 No Known [...] education level: None Occupational History ??? None Social Needs ??? Financial resource strain: None ??? Food insecurity: Worry: None Inability: None ??? Transportation needs: Medical: None Non-medical: None Tobacco Use ??? Smoking status: Never Smoker ??? Smokeless tobacco: Never Used Substance and Sexual Activity ??? Alcohol use: No ??? Drug use: No ??? Sexual activity: Yes Partners: Male Lifestyle ??? Physical activity: Days per week: None Minutes per session: None ??? Stress: None Relationships ??? Social connections: Talks on phone: None Gets together: None Attends hoahaoism service: None Active member of club or organization: None Attends meetings of clubs or organizations: None Relationship status: None ??? Intimate partner violence: Fear of current or ex partner: None Emotionally abused: None Physically abused: None Forced sexual activity: None Other Topics Concern ??? None Social History Narrative ??? None Review of Systems Constitutional: Negative for chills, [...] The patient is not nervous/anxious. Objective: BP 116/70 (BP Location: Right arm, Patient Position: Sitting) Ht 175.3 cm (5' 9 ) Wt 158 lb (71.7 kg) LMP 09/13/2019 BMI 23.33 kg/m?? Physical Exam Vitals signs reviewed. Constitutional: General: She is not in acute distress. Appearance: Normal appearance. She is well-developed and normal weight. HENT: Head: Normocephalic. Eyes: General: Right eye: No discharge. Left eye: No discharge. Pupils: Pupils are equal, round, and reactive to light. Neck: Musculoskeletal: Normal range of motion. Thyroid: No thyromegaly. Cardiovascular: Rate and Rhythm: Normal rate and regular rhythm. Heart sounds: Normal heart sounds. No murmur. No friction rub. No gallop. Pulmonary: Effort: Pulmonary effort is normal. No respiratory distress. Breath sounds: Normal breath sounds. Chest: Breasts: Breasts are symmetrical. Right: No mass. Left: No mass. Abdominal: General: Bowel sounds are normal. Palpations: Abdomen is soft. Tenderness: There is no tenderness. Genitourinary: General: Normal vulva. Exam position: Supine. Labia: Right: No lesion. Left: No lesion. Vagina: Normal. No vaginal discharge. Cervix: No cervical motion tenderness, discharge or friability. Uterus: Not tender. Adnexa: Right: No tenderness. Left: No tenderness. Rectum: Normal. Guaiac result negative. Musculoskeletal: Normal range of motion. General: No tenderness or deformity. Lymphadenopathy: Cervical: No cervical adenopathy. Lower Body: No right inguinal adenopathy. [...] this visit: Well woman exam (Primary) Comments: Defer pap; cont Lo Loestrin 1 tab od x 84 days, disp #3 pks with #3 RFs; call office with any gyne health issues. Other orders - norethindrone-e.estradiol-iron (Lo Loestrin Fe) 1 mg-10 mcg (24)/10 mcg (2) tablet; Take 1 tabletby mouth daily Recommended screenings and preventive care discussed: Breast cancer: Breast Self Exam encouraged. Pap deferred and Cholesterol followed by PCP Low fat diet and exercise encouraged. Danielle Zamudio NP 10/04/2019 Cosigned by Josué Vincent MD at 10/04/2019 4:[address]GE [address] JUDGE [address] JUDGE documented in this encounter Plan of Treatment Not on file documented as of this encounter Visit Diagnoses Diagnosis Well woman exam- Primary Routine general medical examination at a health care facility documented in this encounter Discontinued Medications Medication Sig Discontinue Reason Start Date End Da te calcium carbonate (CALCIUM 600) 1,500 mg (600 mg of elemental calcium) tablet take 1 by Oral route once Therapy completed 02/21/2015 10/04/2019 vit iron vol-vjcij-vde ( 19, WITH DOCUSATE,) 29 mg iron- 1 mg-25 mg tablet take 1 tablet by oral route every day Therapy completed 12/07/2010 10/04/2019 LO LOESTRIN FE 1 mg-10 mcg (24)/10 mcg (2) tablet TAKE 1 TABLET BY MOUTH EVERY DAY Reorder 08/06/2019 10/04/2019 documented as of this encounter Care Teams Side Sawyer Relationship Specialty Start Date End Date No, Physician PCP - General 08/08/17 01/15/23 documented as of this encounter
--- OUTSIDE RECORDS SUMMARY | 2024-08-28 02:33 | XMS_ITS | Encounter Summary ---
Author Organization [facility] Address [address] [place] [address] Care Team Providers Care Soap Boiler Name Role Phone No, Physician Primary Care Provider [phone] Reason for Visit * Reason Comments Pelvic Pain Encounter Details Date Type Department Care Team (Late st Contact Info) Description 03/08/2022 8:30 AM CDT Office Visit Kevin Lobo [address] [facility] [address] [place] [address] Danielle Zamudio, SARAH [address] [place], [place] [id number] Painful urination (Primary Dx); Pelvic cramping Social History Tobacco Use Types Packs/Day Years [...] on file 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 Gender Identity Not on file Sexual Orientation Not on file documented as of this encounter Last Filed Vital Signs Vital Sign Reading Time Taken Comments Blood Pressure 116/72 03/08/2022 9:00 AM CDT Pulse - - Temperature - - Respiratory Rate - - Oxygen Saturation - - Inhaled Oxygen Concentration - - Weight 52.6 kg (116 lb) 03/08/2022 9:00 AM CDT Height 175.3 cm (5' 9 ) 03/08/2022 9:00 AM CDT Body Mass Index 17.13 03/08/2022 9:00 AM CDT documented in this encounter Ordered Prescriptions Prescription Sig Dispense Quantity Refills Last Filled Start Date End Date estradioL (ESTRACE) 0.01 % (0.1 mg/gram) vaginal cream Apply Gm 1/2-1 to introitus and urethra at HS, 2-3x/week. 42.5 g 1 03/08/2022 3 documented in this encounter Progress Notes * Danielle Zamudio, DELI/BAKERY ASSOCIATE - 03/08/2022 8:30 AM CDT Standard Office Visit Note Subjective: HPI: Yomaira Ford is a 31 y.o. MWF, here with complaints of periodic pelvic pain and painful urination for awhile; states burning at the vaginal opening; she has been off of Lo Loestrin for thyroid issues monthly menses; pt does state the pain is above her ovaries and alternates; lasts a day or two then goes away; discussed Mittelschmerz pains; declines STD testing; she's thinking about a salpingectomy---will call if wanting to pursue. I have reviewed: allergies, current medications, past medical history, past surgical history and problem list Review of Systems: Review of Systems Objective: Vitals: 03/08/22 0900 BP: 116/72 BP Location: Right arm Patient Position: Sitting Weight: 116 lb (52.6 kg) Height: 175.3 cm (5' 9 ) Body mass index is 17.13 kg/m??. Physical Exam Vitals reviewed. Constitutional: Appearance: Normal appearance. Comments: Underweight Cardiovascular: Rate and Rhythm: Normal rate and regular rhythm. Pulmonary: Effort: Pulmonary effort is normal. Breath sounds: Normal breath sounds. Abdominal: Palpations: Abdomen is soft. Genitourinary: General: Normal vulva. Vagina: No vaginal discharge. Comments: Urine dip negative except for trace blood; urethra looks irritated. Skin: General: Skin is warm and dry. Neurological: Mental Status: She is alert. Assessment/Plan: Diagnoses and all orders for this visit: Painful urination (Primary) Comments: Apply Estradiol cream Gm 1/2-1 to introitus and urethra, 2-3x/week to help friability; call if symptoms persist. Orders: - POCT urinalysis dipstick - Urine culture Urine, clean voided; Future Other orders - estradioL (ESTRACE) 0.01 % (0.1 mg/gram) vaginal cream; Apply Gm 1/2-1 to introitus and urethra at HS, 2-3x/week. Danielle Zamudio NP documented in this encounter Plan of Treatment Not on file documented as of this encounter Procedures Procedure Name Priority Date/Time Associated Diagnosis Comments URINE CULTURE Routine 03/08/2022 11:18 AM CDT Painful urination POCT URINALYSIS DIPSTICK Routine 03/08/2022 9:01 AM CDT Painful urination documented in this encounter Results * Urine culture Urine, clean voided (03/08/2022 11:18 AM CDT) [facility] Comment: ??CULTURE, URINE, ROUTINE ?Micro Number: ?[id number] ??Test Status: ? Final ??Specimen Source: ?? Not given ??Specimen Quality: ??Adequate ??Result: ?No Growth Urine, clean voided 03/08/2022 11:18 AM CDT 03/09/2022 12:49 AM CDT us Danielle Zamudio DELI/BAKERY ASSOCIATE LAB MICROBIOLOGY - GENERA L ORDERABLES Final Result [facility] [address] [place] [address] * (ABNORMAL) POCT urinalysis dipstick (03/08/2022 9:01 AM CDT) Color, Urine, POC Yellow Clarity, ur, POC Clear Clear Glucose, ur, POC Negative Negative MG/DL Bilirubin, ur, POC Negative Negative, Small, Moderate, Large Ketones, ur, POC Negative Negative Specific Kinney, POC 1.005 1.005 - 1.030 Blood, ur, POC Trace(A) Negative pH, ur, POC 5.5 5.0 - 8.0 Protein, ur, POC Negative Negative Urobilinogen, urine, POC 0.2 0.2 - 1.0 mg/dL Nitrite, ur, POC Negative Negative Leukocytes, ur, POC Negative Negative Lot Number [id number] Urine 03/08/2022 9:01 AM CDT Danielle Zamudoi DELI/BAKERY ASSOCIATE POINT OF CARE TEST ORDERA BLES Final Result documented in this encounter Visit Diagnoses Diagnosis Painful urination- Primary Dysuria Pelvic cramping documented in this encounter Care Teams Soap Boiler Relationship Specialty Start Date End Date No, Physician PCP - General 08/08/17 01/15/23 documented as of this encounter
--- OUTSIDE RECORDS SUMMARY | 2024-08-28 02:33 | XMS_ITS | Encounter Summary ---
Author Organization [facility] Address [address] [place] [address] Care Team Providers Care Inspector Production Plastic Parts Name Role Phone No, Physician Primary Care Provider [phone] Reason for Visit * Reason Comments Gynecologic Exam Encounter Details Date Type Department Care Team (Late st Contact Info) Description 03/05/2022 2:30 PM CDT Office Visit Kevin Lobo [address] [facility] [address] [place] [address] Danielle Zamudio, SARAH 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 Gender Identity Not on file Sexual Orientation Not on file documented as of this encounter Last Filed Vital Signs Vital Sign Reading Time Taken Comments Blood Pressure 114/70 03/05/2022 2:41 PM CDT Pulse - - Temperature - - Respiratory Rate - - Oxygen Saturation - - Inhaled Oxygen Concentration - - Weight 73.9 kg (163 lb) 03/05/2022 2:41 PM CDT Height 175.3 cm (5' 9 ) 03/05/2022 2:41 PM CDT Body Mass Index 24.07 03/05/2022 2:41 PM CDT documented in this encounter Progress Notes * Danielle Zamudio, LEATHER PRODUCTION ARTISAN - 03/05/2022 2:30 PM CDT Well Woman Exam Subjective: Yomaira Ford is a 31 y.o. MWF, who presents for a well woman exam; delgado pap; monthly menses x 6 days; has had 2 vaccines and 1 boost then had Covid in Dec, 2021. Contraception:Vasectomy Menstrual History: Patient's last menstrual period was 02/18/2022. Sexual History: OB History 4 Para 3 Term 3 AB 1 Living 3 SAB 1 IAB Ectopic Multiple Live Births 3 # Outcome [...] 11 oz Male Current Outpatient Medications: ??? estradioL (ESTRACE) 0.01 % (0.1 mg/gram) vaginal cream, Apply Gm 1/2-1 to introitus and urethraat HS, 2-3x/week., Disp: 42.5 g, Rfl: 1 No Known Allergies Family History Problem Relation Age of Onset ??? Hypertension Mother Hypertension; ??? Asthma Father Asthma; ??? Diabetes Maternal Grandfather Diabetes mellitus; ??? Cancer Maternal Grandfather Cancer; ??? Colon cancer Maternal Grandfather Cancer, colon; ??? Anemia Brother Anemia; ??? Osteoporosis Maternal Grandmother Osteoporosis; Social History Tobacco Use ??? Smoking status: Never Smoker ??? Smokeless tobacco: Never Used Substance and Sexual Activity ??? Drug use: No ??? Sexual activity: Yes Partners: Male Alcohol Use: Not on file Review of Systems Constitutional: Negative [...] The patient is not nervous/anxious. Objective: BP 114/70 (BP Location: Left arm, Patient Position: Sitting) Ht 175.3 cm (5' 9 ) Wt 163 lb (73.9 kg) LMP 02/18/2022 BMI 24.07 kg/m?? Physical Exam Vitals reviewed. Constitutional: General: She is not in acute distress. Appearance: She is well-developed. Comments: Underweight HENT: Head: Normocephalic. Eyes: General: Right eye: No discharge. Left eye: No discharge. Pupils: Pupils are equal, round, and reactive to light. Neck: Thyroid: No thyromegaly. Comments: No thyromegaly or tenderness Cardiovascular: Rate and Rhythm: Normal rate and regular rhythm. Heart sounds: Normal heart sounds. No murmur heard. No friction rub. No gallop. Pulmonary: Effort: Pulmonary effort is normal. No respiratory distress. Breath sounds: Normal breath sounds. Chest: Breasts: Breasts are symmetrical. Right: No mass or axillary adenopathy. Left: No mass or axillary adenopathy. Abdominal: General: Bowel sounds are normal. Palpations: [...] normal. Immunizations: discussed. Assessment and Plan: Normal exam . Diagnoses and all orders for this visit: Well woman exam (Primary) Comments: Await pap results; enc high fat snacks to increase BMI; call office with any gyne health issues. Orders: - Pap and High Risk HPV, reflex to Genotyping; Future Recommended screenings and preventive care discussed: Breast cancer: Breast Self Exam encouraged. Pap and HR HPV done. and Cholesterol followed by PCP Low fat diet and exercise encouraged. Danielle Zamudio NP 03/05/2022 documented in this encounter Plan of Treatment Not on file documented as of this encounter Procedures Procedure Name Priority Date/Time Associated Diagnosis Comments PAP AND HIGH RISK HPV, REFLEX TO GENOTYPING Routine 03/05/2022 3:28 PM CDT Well woman exam documented in this encounter Results * Pap and High Risk HPV, reflex to Genotyping (03/05/2022 3:28 PM CDT) CLINICAL INFORMATION: [facility] Comment:Information not prov ided LMP [facility] Comment:[id number] Previous Pap [facility] Comment:INFORMATION NOT PROV IDED Prev. Bx [facility] Comment:INFORMATION NOT PROV IDED SOURCE: [facility] Comment:Cervix, Endocervix Pap, specimen adequacy [facility] Comment: Satisfactory for evaluation. Endocervical/transformation zone component present. HPV interp [facility] Comment:Negative for intraep ithelial lesion or malignancy. Community Services Officer [facility] Comment: JAF, CT(ASCP) CT Screening Location: [place] [address] [address] [address] Review teaching dietitian [facility] Comment: DDS, CT(ASCP) CT screening location: [place] [address] [address] [address] Comment [facility] Comment: EXPLANATORY NOTE: The Pap is [...] High Risk E6/E7 Not Detected NOT DETECTED Tisha Herrera /Heriberto garcia [place] Comment: Not Detected High Risk HPV types (16,18,31,33,35,39,45,51,52, 56,58,59,66,68) were not detected. Other HPV types which cause anogenital lesions may be present. The significance of the other types of HPV in malignant processes has not been established. Methodology: Real Time PCR ? Thin prep 03/05/2022 3:28 PM CDT 03/06/2022 12:40 AM CDT us Danielle Zamudio LEATHER PRODUCTION ARTISAN LAB CYTOLOGY ORDERABLES F inal Result [place] [address] [address] [address] Tisha Herrera/[place] [address] [address] [place] [address] documented in this encounter Visit Diagnoses Diagnosis Well woman exam- Primary Routine general medical examination at a health care facility documented in this encounter Discontinued Medications Medication Sig Discontinue Reason Start Date End Da te Lo Loestrin Fe 1 mg-10 mcg (24)/10 mcg (2) tablet Take 1 tablet by mouth daily Therapy completed 02/14/2021 03/05/2022 documented as of this encounter Care Teams Inspector Production Plastic Parts Relationship Specialty Start Date End Date No, Physician PCP - General 08/08/17 01/15/23 documented as of this encounter
--- OUTSIDE RECORDS SUMMARY | 2024-08-28 02:33 | XMS_ITS | Encounter Summary ---
Author Organization [facility] Address [address] [place] [address] Care Team Providers Care Liquor Merchant Name Role Phone No, Physician Primary Care Provider [phone] Encounter Details Date Type Department Care Team (Late st Contact Info) Description 10/29/2017 Orders Only [facility] Health Information Management [address] [place] [address] Scanning, Provider Social History Tobacco Use Types Packs/Day Years Used Date Smoking Tobacco: Never Smokeless Tobacco: Never PHQ-2 Answer Date Recorded PHQ-2 Score 0 10/04/2019 Comments No Sex and Gender Information Value Date Recorded Sex Assigned at Not on file 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 Gender Identity Not on file Sexual Orientation Not on file documented as of this encounter Plan of Treatment Not on file documented as of this encounter Procedures Procedure Name Priority Date/Time Associated Diagnosis Comments CARDIOLOGY DOCUMENT SCAN 10/29/2017 documented in this encounter Results * SCAN - CARDIOLOGY (10/29/2017) Anatomical Region Laterality Modality Other us Provider Scanning CV CARDIAC SERVICES PROCEDURES Final Result documented in this encounter Visit Diagnoses Not on filedocumented in this encounter Care Teams Liquor Merchant Relationship Specialty Start Date End Date No, Physician PCP - General 08/08/17 01/15/23 documented as of this encounter
--- OUTSIDE RECORDS SUMMARY | 2024-08-28 02:33 | XMS_ITS | Encounter Summary ---
Author Organization [facility] Address [address] [place] [address] Care Team Providers Care Explosive Specialist Name Role Phone No, Physician Primary Care Provider [phone] Reason for Referral * Diagnostic Imaging (Routine) - Closed Specialty Diagnoses / Procedures Referred By Contac t Referred To Contact Diagnoses Cyst of ovary, unspecified laterality Procedures US Pelvis W Endovaginal Josué Vincent MD Phone: tel: fax: [facility] Referral ID Status Reason Start Date Expiration Date Visits Re quested Visits Authorized [id number] Closed 06/19/2018 12/29/2019 1 1 Reason for Visit * Reason Comments Ovarian Cyst Encounter Details Date Type Department Care Team (Latest Contact Info) Description 06/19/2018 3:00 PM CDT Clinical Support [facility] [address] [place] [address] [address] [place] [phone] Cyst of ovary, unspecified laterality (Primary Dx) Social History Tobacco Use Types Packs/Day Years Used Date Smoking Tobacco: Never Smokeless Tobacco: Never Alcohol Use Standard Drinks/Week Comments No 0 (1 standard drink = 0.6 oz pur e alcohol) Comments No Sex and Gender Information Value Date Recorded Sex Assigned at Not on file 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 No LMP recorded. Findings: A transabdominal and transvaginal pelvic ultrasound is performed. The uterus measures 7.8x 4.1 x 6.7 cm. Uterine echotexture is heterogeneous.. The EMC measures 4 mm. The right ovary measures 3.4 x 2.5 x 3.1 cm. The left ovary measures 2.6 x 2.5 x 2.4 cm. Previouslyseen cyst has resolved. The ovaries appear normal. The cul-de-sac is unremarkable. Impression: 1. Normal appearing uterus. 2. Normal appearing ovaries bilaterally. Josué Vincent MD GLASS CUTTER documented in this encounter Plan of Treatment Scheduled Orders Name Type Priority Associated Diagnoses Orde r Schedule US Pelvis W Endovaginal Imaging Schedule Routine, Read Routine (OP Routine) Cyst of ovary, unspecified laterality Ordered: 06/19/2018 documented as of this encounter Visit Diagnoses Diagnosis Cyst of ovary, unspecified laterality- Primary documented in this encounter Care Teams Explosive Specialist Relationship Specialty Start Date End Date No, Physician PCP - General 08/08/17 01/15/23 documented as of this encounter
--- OUTSIDE RECORDS SUMMARY | 2024-08-28 02:33 | XMS_ITS | Encounter Summary ---
Author Organization [facility] Address [address] [place] [address] Care Team Providers Care Commercial Photographer Name Role Phone No, Physician Primary Care Provider [phone] Encounter Details Date Type Department Care Team (Late st Contact Info) Description 10/31/2017 Orders Only [facility] Cardiology [address] [place] [address] Provider, MD Felipe [address] [place], [place] [id number] Social History Tobacco Use Types Packs/Day Years Used Date Smoking Tobacco: Never Smokeless Tobacco: Never Comments No Sex and Gender Information Value Date Recorded Sex Assigned at Not on file 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 Gender Identity Not on file Sexual Orientation Not on file documented as of this encounter Plan of Treatment Not on file documented as of this encounter Procedures Procedure Name Priority Date/Time Associated Diagnosis Comments TRANSTHORACIC ECHO (TTE) COM PLETE W DOPPLER/CF Routine 10/23/2017 documented in this encounter Results * Transthoracic Echo Complete W Doppler/CF (10/23/2017) Anatomical Region Laterality Modality Ultrasound us Historical Provider CV ECHO PROCEDURES Final Result documented in this encounter Visit Diagnoses Not on filedocumented in this encounter Care Teams Commercial Photographer Relationship Specialty Start Date End Date No, Physician PCP - General 08/08/17 01/15/23 documented as of this encounter
--- OUTSIDE RECORDS SUMMARY | 2024-08-28 02:33 | XMS_ITS | Encounter Summary ---
Author Organization [facility] Address [address] [place] [address] Care Team Providers Care Color Depositing Machine Tender Name Role Phone No, Physician Primary Care Provider [phone] Reason for Visit * Reason Onset Date Comments Med orders 06/15/2018 Encounter Details Date Type Department Care Team (Late st Contact Info) Description 06/15/2018 Telephone [facility] [address] [place] [phone] Earlene Arita, RN Med orders Social History Tobacco Use Types Packs/Day Years Used Date Smoking Tobacco: Never Smokeless Tobacco: Never Alcohol Use Standard Drinks/Week Comments No 0 (1 standard drink = 0.6 oz pur e alcohol) Comments No Sex and Gender Information Value Date Recorded Sex Assigned at Not on file 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 84 tablet 3 06/15/2018 05/17/2019 documented in this encounter Miscellaneous Notes * Telephone Encounter - Earlene Arita RN - 06/15/2018 9:28 AM CDT Pt was given sample packs of loloestrin, would like to continue. Order erx'd. documented in this encounter Plan of Treatment Not on file documented as of this encounter Visit Diagnoses Not on filedocumented in this encounter Discontinued Medications Medication Sig Discontinue Reason Start Date End Da te norethindrone ac-eth estradiol (LOESTRIN 09/20, ,) 1-20 mg-mcg per tablet Take 1 tablet by mouth daily. 03/24/2018 06/15/2018 documented as of this encounter Care Teams Color Depositing Machine Tender Relationship Specialty Start Date End Date No, Physician PCP - General 08/08/17 01/15/23 documented as of this encounter
--- OUTSIDE RECORDS SUMMARY | 2024-08-28 02:33 | XMS_ITS | Encounter Summary ---
Author Organization [facility] Address [address] [place] [address] Care Team Providers Care Gericare Aide Name Role Phone No, Physician Primary Care Provider [phone] Reason for Referral * Diagnostic Lab (Routine) - Closed Specialty Diagnoses / Procedures Referred By Charlene t Referred To Contact Lab Diagnoses Well woman exam Procedures Pap IG, rfx HPV all pth Danielle Zamudio, SARAH Phone: tel: fax: Referral ID Status Reason Start Date Expiration Date Visits Re quested Visits Authorized [id number] Closed 09/28/2018 04/08/2020 1 1 GER REVENUE Reason for Visit * Reason Comments Gynecologic Exam * Diagnostic Lab (Routine) - Closed Specialty Diagnoses / Procedures Referred By Charlene chan Referred To Contact Lab Diagnoses Well woman exam Procedures Pap IG, rfx HPV all pth Danielle Zamudio, SARAH Phone: tel: fax: Referral ID Status Reason Start Date Expiration Date Visits Re quested Visits Authorized [id number] Closed 09/28/2018 04/08/2020 1 1 Encounter Details Date Type Department Care Team (Late st Contact Info) Description 09/28/2018 9:00 AM MANAGER REVENUE Office Visit Kevin SU [address] [place] [id number] Danielle Zamudio NP [address] [facility] [address] LEMUS B [address] [address] Well woman exam (Primary Dx) Social History Tobacco Use Types Packs/Day Years Used Date Smoking Tobacco: Never Smokeless Tobacco: Never Alcohol Use Standard Drinks/Week Comments No 0 (1 standard drink = 0.6 oz pur e alcohol) Comments No Sex and Gender Information Value Date Recorded Sex Assigned at Not on file 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 Gender Identity Not on file Sexual Orientation Not on file documented as of this encounter Last Filed Vital Signs Vital Sign Reading Time Taken Comments Blood Pressure 98/60 09/28/2018 9:07 AM MANAGER REVENUE Pulse - - Temperature - - Respiratory Rate - - Oxygen Saturation - - Inhaled Oxygen Concentration - - Weight 73.5 kg (162 lb) 09/28/2018 9:07 AM MANAGER REVENUE Height 172.7 cm (5' 8 ) 09/28/2018 9:07 AM MANAGER REVENUE Body Mass Index 24.63 09/28/2018 9:07 AM MANAGER REVENUE documented in this encounter Progress Notes * Danielle Zamudio NP - 09/28/2018 9:00 AM CST Well Woman Exam Subjective: Yomaira Ford is a 28 y.o. MWF, who presents for a well woman exam. Contraception:Oral contraception Menstrual History: No LMP recorded. Sexual History: OB History Para Term AB Living 4 3 3 1 3 SAB TAB Ectopic Multiple Live Births 1 3 # Outcome Date GA Labor/2nd Weight Sex Delivery Anes PTL Living Name Location Delivering Clinician 1 Term Vag-Spont Living 2 Term Vag-Spont Living 3 Term Vag-Spont Living 4 Spontaneous Past Medical History: Diagnosis Date ??? HX [...] route once, Disp: 0, Rfl: 0 ??? norethindrone-e.estradiol-iron (LO LOESTRIN FE) 1 mg-10 mcg (24)/10 mcg (2) tablet, Take 1 tablet by mouth daily., Disp: 84 tablet, Rfl: 3 ??? vit iron vjk-ezwah-orp ( 19, WITH DOCUSATE,) 29 mg iron- 1 mg-25 mg tablet, take 1 tablet by oral route every day, Disp: [...] Smokeless tobacco: Never Used ??? Alcohol use No ??? Drug use: No ??? Sexual [...] The patient is not nervous/anxious. Objective: BP 98/60 Ht 172.7 cm (5' 8 ) Wt 162 lb (73.5 kg) BMI 24.63 kg/m?? Physical Exam Constitutional: She is oriented to [...] are normal. There is no tenderness. Genitourinary: Rectum normal, vagina normal and uterus normal. Rectal exam shows guaiac negative stool. No breast tenderness, discharge or bleeding. Pelvic exam was performed with patient supine. There is [...] woman exam (Primary) Comments: Await pap results; cont Lo Loestrin, 1 tab od x 84 days; disp #3 pks with #3 RFs; call office with any gyne health issues. Orders: - Pap IG, rfx HPV all pth; Future Recommended screenings and preventive care discussed: Breast cancer: Breast Self Exam encouraged. Pap with reflex done and Cholesterol followed by PCP Low fat diet and exercise encouraged. Danielle Zamudio, SARAH 09/28/2018 GER REVENUE documented in this encounter Plan of Treatment Not on file documented as of this encounter Procedures Procedure Name Priority Date/Time Associated Diagnosis Comments PAP IG, RFX HPV ALL PTH Routine 09/28/2018 Well woman exam documented in this encounter Results * Pap IG, rfx HPV all pth (09/28/2018) Endocervical 09/28/2018 us Danielle Zamudio AUTOMATION TESTER LAB PATHOLOGY ORDERABLES Final Result EXTERNAL LAB documented in this encounter Visit Diagnoses Diagnosis Well woman exam- Primary Routine general medical examination at a health care facility documented in this encounter Discontinued Medications Medication Sig Discontinue Reason Start Date End Da te cholecalciferol (VITAMIN D3) 1,000 unit capsule take 1 by Oral route once 01/10/2017 09/28/2018 documented as of this encounter Care Teams Gericare Aide Relationship Specialty Start Date End Date No, Physician PCP - General 08/08/17 01/15/23 documented as of this encounter
--- OUTSIDE RECORDS SUMMARY | 2024-08-28 02:33 | XMS_ITS | Encounter Summary ---
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 Gender Identity Not on file Sexual Orientation Not on file documented as of this encounter Medications at Time of Discharge calcium carbonate (CALCIUM 600) 1,500 mg (600 mg of elemental calcium) tablet take 1 by Oral route once 0 0 02/21/2015 10/04/2019 vit iron [id number] ( 19, WITH DOCUSATE,) 29 mg iron- 1 mg-25 mg tablet take 1 tablet by oral route every day 0 12/07/2010 10/04/2019 documented as of this encounter Plan of Treatment Not on file documented as of this encounter Visit Diagnoses Not on filedocumented in this encounter Care Teams Straight Truck Driver Relationship Specialty Start Date End Date Lawrence Neff PCP - General 09/24/13 11/28/16 documented as of this encounter
--- OUTSIDE RECORDS SUMMARY | 2024-08-28 02:33 | XMS_ITS | Encounter Summary ---
Author Organization [facility] Healthcare Address [address] [place] [address] Care Team Providers Care Metal Grader Name Role Phone [email or web address] Primary Care Provider Un available Encounter Details Date Type Department Care Team (Late st Contact Info) Description 05/12/2015 6:20 PM CDT - 05/12/2015 11:59 PM CDT Hospital Encounter [facility] Josué Cat MD [address] [place] [address] DR FROST [address] [place] [id number] Encounter for supervision of normal in multigravida; Threatened , antepartum Social History Tobacco Use Types Packs/Day Years Used Date Smoking Tobacco: Never Assessed Comments Unknown Sex and Gender Information Value Date Recorded Sex Assigned at Not on file 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 Gender Identity Not on file Sexual Orientation Not on file documented as of this encounter Medications at Time of Discharge calcium carbonate (CALCIUM 600) 1,500 mg (600 mg of elemental calcium) tablet take 1 by Oral route once 0 0 02/21/2015 10/04/2019 vit iron [id number] ( 19, WITH DOCUSATE,) 29 mg iron- 1 mg-25 mg tablet take 1 tablet by oral route every day 0 12/07/2010 10/04/2019 documented as of this encounter Plan of Treatment Not on file documented as of this encounter Procedures Procedure Name Priority Date/Time Associated Diagnosis Comments DISCHARGE LABORATORY CUMULATIVE REPORT 05/13/2015 SERUM CHORIONIC GONADOTROPIN (HCG), QUANTITATIVE Routine 05/12/2015 6:35 PM CDT documented in this encounter Results * DISCHARGE LABORATORY CUMULATIVE REPORT (05/13/2015) Narrative 05/13/2015 Ordered by an unspecified provider. us Historical Provider LAB BLOOD ORDERABLES Adriana l Result * (ABNORMAL) Serum chorionic gonadotropin (HCG), quantitative (05/12/2015 6:35 PM CDT) HCG, quant 81754.0(H ) 0.0 - 5.0 IUnits/L HISTORICAL RESULTS Comment: reviewed Interpretive Data Negative: ? <5 mIU/mL ? Borderline: ??6-25 mIU/mL Positive: ? >25 mIU/mL Approx Gest Age ? Approx HCG Concentration 3 - 4 Weeks ?9 - 130 4 - 5 Weeks ?75 - 2600 5 - 6 Weeks ?850 - 20,800 6 - 7 Weeks ?4000 - 100,200 7 - 12 Weeks ? [address] - 289,000 16 - 29 Weeks ? [address] - 137,000 29 - 41 Weeks ? 900 - 60,000 Current interpretive data was last revised on 2015 Serum 05/12/2015 6:35 PM CDT us Historical Provider LAB BLOOD ORDERABLES Adriana l Result HISTORICAL RESULTS documented in this encounter Visit Diagnoses Diagnosis Encounter for supervision of normal in multigravida Threatened , antepartum documented in this encounter Care Teams Metal Grader Relationship Specialty Start Date End Date Lawrence Neff PCP - General 09/24/13 11/28/16 documented as of this encounter
--- OUTSIDE RECORDS SUMMARY | 2024-08-28 02:33 | XMS_ITS | Encounter Summary ---
Author Organization [facility] Healthcare Address [address] [place] [address] Care Team Providers Care Dedicated Owner Operator Name Role Phone Orin Bond NP Primary Care Provide r Reason for Visit * Reason Comments Dizziness Encounter Details Date Type Department Care Team (Late st Contact Info) Description 01/16/2023 12:59 PM CDT - 01/16/2023 3:05 PM CDT Emergency [facility] Emergency Department [address] [place] [address] Adalgisa Venegas MD 1 [facility] [place] [address] Jada Gunn MD 1 [place] [address] Dizziness (Primary Dx); Sinusitis, unspecified chronicity, unspecified location Discharge Disposition: Discharge to home or self [...] on file 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 Gender Identity Not on file Sexual Orientation Not on file documented as of this encounter Last Filed Vital Signs Vital Sign Reading Time Taken Comments Blood Pressure 113/69 01/16/2023 2:45 PM CDT Pulse 58 01/16/2023 2:45 PM CDT Temperature 36.4 ??C (97.6 ??F) 01/16/2023 10:49 AM C DT Respiratory Rate 9 01/16/2023 2:45 PM CDT Oxygen Saturation 100% 01/16/2023 2:45 PM CDT Inhaled Oxygen Concentration - - Weight 72.6 kg (160 lb) 01/16/2023 10:49 AM CDT Height 175.3 cm (5' 9 ) 01/16/2023 10:49 AM CDT Body Mass Index 23.63 01/16/2023 10:49 AM CDT documented in this encounter Discharge Instructions * Attachments The following attachments cannot be sent through Care Everywhere. * Dizziness, Uncertain Cause (Mozambican) * Sinusitis (Antibiotic Treatment) ([place]ozambican) documented in this encounter Medications at Time of Discharge Lo Loestrin Fe 1 mg-10 mcg (24)/10 mcg (2) tablet per tablet TAKE 1 TABLET BY MOUTH EVERY DAY 84 tablet 3 03/25/2022 amoxicillin-clav ulanate (AUGMENTIN) 875-125 mg per tabletIndication s:Upper Respiratory/HEEN T Infection Take 1 tablet by mouth every 12 (twelve) hours for 10 days 20 tablet 01/16/2023 3 estradioL (ESTRACE) 0.01 % (0.1 mg/gram) vaginal cream Apply Gm 1/2-1 to introitus and urethra at HS, 2-3x/week. 42.5 g 1 03/08/2022 3 documented as of this encounter Ordered Prescriptions Prescription Sig Dispense Quantity Refills Last Filled Start Date End Date amoxicillin-clavul anate (AUGMENTIN) 875-125 mg per tabletIndications: Upper Respiratory/HEENT Infection Take 1 tablet by mouth every 12 (twelve) hours for 10 days 20 tablet 01/16/2023 01/26/2023 documented in this encounter Discharge Disposition Disposition Code Departure Means Destination Comment s Discharge to home or self care documented in this encounter ED Notes * Adalgisa Venegas MD - 01/16/2023 1:21 PM CDT HPI Chief Complaint Patient presents with Dizziness HPI Patient History: This is a 32-year-old female with history of dysuria who presents with a near syncopal episode today around 930am. The patient was with the patient when she is dated everything went black and sparkly and her arms were tingly. She quickly excused herself and went to lie down in the hallway. After she rested awhile, her symptoms passed. The patient states she has been having a coldwith significant sinus drainage and sinus pressure in her forehead. Her kids are all sick with the same thing. She denies fever chills. Patient states previously she had had palpitations but never had anything like this. Patient Active Problem List Diagnosis Date Noted Infectious disease contact 11/23/2015 Viral syndrome 11/07/2015 No pathologic diagnosis 01/15/2014 Urinary tract infection 05/17/2010 Dysuria 05/17/2010 Past Medical History: Diagnosis Date HX OTHER [...] Male Past Surgical History: Procedure Laterality Date OTHER [...] Never Smokeless tobacco: Never Vaping Use Vaping status: None Substance and Sexual Activity Alcohol use: No Drug use: No Sexual activity: Yes Partners: Male Social History Social History Narrative Not on file Review of Systems Review of Systems Constitutional: Negative for chills. HENT: Positive for rhinorrhea. Negative for congestion. Eyes: Negative for pain. Respiratory: Negative for chest tightness. Cardiovascular: Negative for leg swelling. Gastrointestinal: Negative for abdominal pain. Endocrine: Negative for polydipsia. Genitourinary: Negative for frequency. Musculoskeletal: Negative for back pain. Skin: Negative for pallor. Allergic/Immunologic: Negative for food allergies. Neurological: Positive for light-headedness and headaches. Hematological: Negative for adenopathy. Psychiatric/Behavioral: Negative for behavioral problems. All other systems reviewed and are negative. Physical Exam ED Triage Vitals [01/16/23 1049] Temp Pulse Resp BP SpO2 36.4 ??C (97.6 ??F) 69 16 110/67 100 % Temp src Heart Rate Source Patient Position BP Location FiO2 (%) Temporal -- -- -- -- Height Height Method Weight Weight Method 1.753 m (5' 9 ) Stated 72.6 kg (160 lb) Stated Physical Exam Vitals and nursing note reviewed. Constitutional: Appearance: Normal appearance. She is normal weight. HENT: Head: Normocephalic and atraumatic. Right Ear: External ear normal. Left Ear: External ear normal. Nose: Nose normal. Mouth/Throat: Mouth: Mucous membranes are moist. Pharynx: Oropharynx is clear. Eyes: Extraocular Movements: Extraocular movements intact. Conjunctiva/sclera: Conjunctivae normal. Pupils: Pupils are equal, round, and reactive to light. Cardiovascular: Rate and Rhythm: Normal rate and regular rhythm. Pulses: Normal pulses. Heart sounds: Normal heart sounds. Pulmonary: Effort: Pulmonary effort is normal. Breath sounds: Normal breath sounds. No wheezing. Abdominal: General: Bowel sounds are normal. Palpations: Abdomen is soft. Tenderness: There is no abdominal tenderness. There is no right CVA tenderness or left CVA tenderness. Musculoskeletal: General: Normal range of motion. Cervical back: Normal range of motion and neck supple. Right lower leg: No edema. Left lower leg: No edema. Skin: General: Skin is warm. Capillary Refill: Capillary refill takes less than 2 seconds. Neurological: General: No focal deficit present. Mental Status: She is alert and oriented to person, place, and time. Psychiatric: Mood and Affect: Mood normal. Behavior: Behavior normal. MDM Medical Decision Making This is a 32-year-old female with history of dysuria who presents with a near syncopal episode today. Differential includes sinus infection with dehydration and near syncopal episode, arrhythmia, other infection, other Amount and/or Complexity of Data Reviewed Independent Historian: spouse External Data Reviewed: labs, radiology, ECG and notes. Labs: ordered. Decision-making details documented in ED Course. Radiology: Decision-making details documented in ED Course. ECG/medicine tests: ordered. Decision-making details documented in ED Course. Risk Prescription drug management. Final diagnoses: Dizziness Sinusitis, unspecified chronicity, unspecified location Adalgisa Venegas MD 01/18/23 1646 * Talya Harry RN - 01/16/2023 10:47 AM CDT Pt ambulatory to triage for c/o a near syncopal episode today. Pt reports she was at work when she started feeling lightheaded and everything went black around her. Pt quickly lied down and the feeling passed. Pt reports she has been having intermittent dizziness for the last week along with some SOB. documented in this encounter Miscellaneous Notes * ED Re-evaluation Note - Jada Gunn MD - 01/16/2023 2:46 PM CDT ED Re-evaluation [address] Venegas at shift change lab work within normal range EKG normal patient states she feels somewhat lightheaded. She still has lot of drainage and sinus pressure I told her this could be related to the sinusitis I told her to rest I provided a work note for home discussed test results with her reassured her and told her to follow-up with her PCP on Friday or Friday and to return to the emergency department for new or worsening symptoms patient agrees. Labs Reviewed URINALYSIS AND REFLEX TO MICROSCOPIC AND CULTURE Result Value Color, ur Straw Clarity, ur Clear Specific gravity, ur 1.004 pH, urine 7.0 Protein, ur ql Negative Glucose, ur ql Negative Ketones, ur Negative Bilirubin, ur Negative Blood, ur Negative Urobilinogen, ur <2.0 Nitrite, ur Negative Leukocyte esterase, ur Negative UA reflex comment Value: Reflex conditions for microscopic UA and culture not met. Narrative: Urine pH is affected by diet, medications, systemic acid-base disturbances, and renal tubular function. pH may affect urinary stone formation. For example, urine pH below 6.0 may help reduce the tendency for calcium phosphate stones and pH greater than 6.0 may reduce the tendency for uric acid stone formation. Source: [facility].Last revised 09-11-2017 URINALYSIS AND REFLEX TO MICROSCOPIC AND CULTURE Color, ur Straw Clarity, ur Clear Specific gravity, ur 1.004 pH, urine 7.0 Protein, ur ql Negative Glucose, ur ql Negative Ketones, ur Negative Bilirubin, ur Negative Blood, ur Negative Urobilinogen, ur <2.0 Nitrite, ur Negative Leukocyte esterase, ur Negative UA reflex comment Value: Reflex conditions for microscopic UA and culture not met. CBC WITH AUTO DIFFERENTIAL WBC 6.8 Hgb 12.3 Hct 36.8 Plt 237 MPV 9.2 RBC 3.90 MCV 94.4 MCH 31.5 MCHC 33.4 RDW CV 11.9 RDW SD 41.1 NRBC abs 0.00 COMPREHENSIVE METABOLIC PANEL Sodium 140 Potassium, pl 3.7 Chloride 106 CO2 24 Anion gap 10 BUN 13 Creatinine 0.65 Glucose 78 Calcium 9.1 Bilirubin, total 0.6 Protein, pl 7.1 Albumin 4.2 Alk phos 45 ALT 9 AST 14 DIFFERENTIAL AUTO Neutrophil abs 4.6 Imm gran abs 0.0 Lymphocyte abs 1.7 Monocyte abs 0.4 Eosinophil abs 0.1 Basophil abs 0.0 Neutrophil pct 67.4 Imm gran pct 0.1 Lymphocyte pct 24.6 Monocyte pct 6.3 Eosinophil pct 1.3 Basophil pct 0.3 EGFR eGFR 119 HCG, BLOOD, QUANTITATIVE hCG, quant <5.0 No orders to display BP 112/70 Pulse 63 Temp 36.4 ??C (97.6 ??F) (Temporal) Resp 11 Ht 175.3 cm (5' 9 ) Wt 72.6 kg (160 lb) SpO2 100% BMI 23.63 kg/m?? 1. Dizziness 2. Sinusitis, unspecified chronicity, unspecified location There may be grammatical errors in this note due to use of voice recognition software. DISPOSITION:DISCHARGED Jada Gunn MD 01/16/23 1447 documented in this encounter Plan of Treatment Not on file documented as of this encounter Procedures Procedure Name Priority Date/Time Associated Diagnosis Comments URINALYSIS AND REFLEX TO MICROSCOPIC AND CULTURE STAT 01/16/2023 1:52 PM CDT EGFR STAT 01/16/2023 10:59 AM CDT DIFFERENTIAL AUTO STAT 01/16/2023 10: 59 AM CDT URINALYSIS AND REFLEX TO MICROSCOPIC AND CULTURE STAT 01/16/2023 10:59 AM CDT CBC WITH AUTO DIFFERENTIAL STAT 01/16/2023 10:59 AM CDT HCG, BLOOD, QUANTITATIVE STAT 01/16/2023 10:59 AM CDT COMPREHENSIVE METABOLIC PANEL STAT 01/16/2023 10:59 AM CDT ECG 12-LEAD STAT 01/16/2023 10:50 AM CDT documented in this encounter Results * Urinalysis reflex to microscopic and culture Urine (01/16/2023 1:52 PM CDT) Color, ur Straw Yellow [facility] ([facility]) Clarity, ur Clear Clear [facility] ([place]) Specific gravity, ur 1.004 1.003 - 1.030 [facility] ([place]) pH, urine 7.0 [facility] ([place]) Protein, ur ql Negative Negative [facility] ([place]) Glucose, ur ql Negative Negative [facility] ([place]) Ketones, ur Negative Negative [facility] ([place]) Bilirubin, ur Negative Negative [facility] ([place]) Blood, ur Negative Negative [facility] ([place]) Urobilinogen, ur <2.0 <2.0 mg/dL [facility] ([place]) Nitrite, ur Negative Negative [facility] ([place]) Leukocyte esterase, ur Negative Negative [facility] ([place]) UA reflex comment Reflex conditions for microscopic UA and culture not met. [facility] ([place]) Urine 01/16/2023 1:52 PM CDT 01/16/2023 1:56 PM CDT Adalgisa Venegas MD LAB MICROBIOLOGY - GENERA L ORDERABLES Final Result [facility] ([place]) 1 [facility] Department [place] [address] * hCG, blood, quantitative (01/16/2023 10:59 AM CDT) hCG, quant <5.0 0.0 - 5.0 IUnits/L [facility] (JADE) Comment: Interpretive Data Non- Female premenopausal: < or = 5.0 IUnits/L Men: < 5.0 IUnits/L Weeks of Gestation ? Reference Interval ?? 3 to 6 ? 5.8-31,795 IUnits/L ?? 7 to 10 ? 3,697-186,977 IUnits/L ??12 to 15 ?27,832- 70,791 IUnits/L ??16 to 18 ? 9,040- 58,179 IUnits/L The Al hCG Beta Quant assay procedure was used. Results from different manufacturers or methods may not be comparable. Serial testing should be performed using the same method. Current Interpretive Data was last revised on 2022. Blood 01/16/2023 10:5 9 AM CDT 01/16/2023 1:26 PM CDT Adalgisa Venegas MD LAB BLOOD ORDERABLES Edit ed Result - Final Performing Organization Address City/[facility]/ZIP Co de Phone Number [facility] (JADE) 1 [facility] [employer] [place] [address] * eGFR (01/16/2023 10:59 AM CDT) [facility] eGFR 119 mL/min/1. 73 m2 [facility] ([place]) Comment: Interpretive Data Reference Interval Normal ?>/= 90 mL/min/1.73m2 Mildly decreased* ? 60 - 89 mL/min/1.73m2 Mildly to moderately decreased ?45 - 59 mL/min/1.73m2 Moderately to severely decreased ??30 - 44 mL/min/1.73m2 Severely decreased ?15 - 29 mL/min/1.73m2 Kidney Failure ?< 15 ??mL/min/1.73m2 *Relative to young adult level Estimated glomerular filtration rate is determined by the 2020 CKD-EPI equation recommended by the National Kidney Foundation (A Unifying Approach to GFR Estimation: Recommendations of the NKF-ASK Task Force on Reassessing the Inclusion of Race in Diagnosing Kidney Disease, JASN 202). The CKD-EPI equation should not be used for patients with unstable renal function and has not been validated in children and those over 70. Current interpretive data was last reviewed 2021. Blood 01/16/2023 10:5 9 AM CDT 01/16/2023 11:02 AM CDT us Adalgisa Venegas MD LAB BLOOD ORDERABLES Adriana l Result Performing Organization Address City/[facility]/ZIP Co de Phone Number [facility] ([place]) 1 [facility] [place] [address] * Differential, auto (01/16/2023 10:59 AM CDT) Neutrophil abs 4.6 1.7 - 6.5 K/cumm [facility] ([facility]) Imm gran abs 0.0 0.0 - 0.1 K/cumm [facility] ([place]) Lymphocyte abs 1.7 0.8 - 3.3 K/cumm [facility] ([place]) Monocyte abs 0.4 0.2 - 0.8 K/cumm [facility] ([place]) Eosinophil abs 0.1 0.0 - 0.5 K/cumm [facility] ([facility]) Basophil abs 0.0 0.0 - 0.1 K/cumm [facility] ([facility]) Neutrophil pct 67.4 % [facility] ([facility]) Comment: Interpretive Data Percent cell count reference ranges are not reported, since discordance with absolute values may lead to misinterpretation of CBC data. Current Interpretive Data was last revised on 2017. Imm gran pct 0.1 % [facility] ([place]) Comment: Interpretive Data Percent cell count reference ranges are not reported, since discordance with absolute values may lead to misinterpretation of CBC data. Current Interpretive Data was last revised on 2017. Lymphocyte pct 24.6 % [facility] ([facility]) Comment: Interpretive Data Percent cell count reference ranges are not reported, since discordance with absolute values may lead to misinterpretation of CBC data. Current Interpretive Data was last revised on 2017. Monocyte pct 6.3 % [facility] ([facility]) Comment: Interpretive Data Percent cell count reference ranges are not reported, since discordance with absolute values may lead to misinterpretation of CBC data. Current Interpretive Data was last revised on 2017. Eosinophil pct 1.3 % [facility] ([facility]) Comment: Interpretive Data Percent cell count reference ranges are not reported, since discordance with absolute values may lead to misinterpretation of CBC data. Current Interpretive Data was last revised on 2017. Basophil pct 0.3 % [facility] ([facility]) Comment: Interpretive Data Percent cell count reference ranges are not reported, since discordance with absolute values may lead to misinterpretation of CBC data. Current Interpretive Data was last revised on 2017. Blood 01/16/2023 10:5 9 AM CDT 01/16/2023 11:02 AM CDT Adalgisa Venegas MD LAB BLOOD ORDERABLES Adriana l Result Performing Organization Address City/State/[facility] Co de Phone Number [facility] ([facility]) 1 [facility] Department [place] [address] * Urinalysis reflex to microscopic and culture Urine (01/16/2023 10:59 AM CDT) Color, ur Straw Yellow [facility] ([place]) Clarity, ur Clear Clear [facility] ([place]) Specific gravity, ur 1.004 1.003 - 1.030 [facility] ([place]) pH, urine 7.0 [facility] ([place]) Protein, ur ql Negative Negative [facility] ([place]) Glucose, ur ql Negative Negative [facility] ([place]) Ketones, ur Negative Negative [facility] ([place]) Bilirubin, ur Negative Negative [facility] ([place]) Blood, ur Negative Negative [facility] ([place]) Urobilinogen, ur <2.0 <2.0 mg/dL [facility] ([place]) Nitrite, ur Negative Negative [facility] ([place]) Leukocyte esterase, ur Negative Negative [facility] ([facility]) UA reflex comment Reflex conditions for microscopic UA and culture not met. [facility] ([facility]) Urine 01/16/2023 10:5 9 AM CDT 01/16/2023 11:02 AM CDT Narrative [facility] ([facility]) - 01/16/2023 11:05 AM CDT ?? Urine pH is affected by diet, medications, systemic acid-base disturbances, and renal tubular function. ??pH may affect urinary stone formation. ??For example, urine pH below 6.0 may help reduce the tendency for calcium phosphate stones and pH greater than 6.0 may reduce the tendency for uric acid stone formation. Source: [employer]. Last revised 09-11-2017 Adalgisa Venegas MD LAB MICROBIOLOGY - GENERA L ORDERABLES Final Result [facility] ([facility]) 1 [facility] Department [place] [address] * Comprehensive metabolic panel (01/16/2023 10:59 AM CDT) Sodium 140 135 - 145 mmol/L [facility] ([facility]) Potassium, pl 3.7 3.3 - 4.9 mmol/L [facility] ([place]) Chloride 106 97 - 110 mmol/L [facility] ([place]) CO2 24 22 - 32 mmol/L [facility] ([place]) Anion gap 10 2 - 15 mmol/L [facility] ([place]) BUN 13 8 - 25 mg/dL [facility] ([place]) Creatinine 0.65 0.60 - 1.10 mg/dL [facility] ([facility]) Glucose 78 70 - 199 mg/dL [facility] ([place]) [...] classification and Diagnosis of Diabetes Diabetes Care 2021; 46: S19-S40. Current interpretive data was last revised 2022. Calcium 9.1 8.5 - 10.3 mg/dL [facility] ([facility]) Bilirubin, total 0.6 0.1 - 1.2 mg/dL [facility] ([place]) Protein, pl 7.1 6.5 - 8.5 g/dL [facility] ([place]) Albumin 4.2 3.5 - 5.0 g/dL [facility] ([place]) Alk phos 45 40 - 130 Units/L [facility] ([facility]) ALT 9 7 - 45 Units/L [facility] ([facility]) AST 14 10 - 45 Units/L [facility] ([facility]) Blood 01/16/2023 10:5 9 AM CDT 01/16/2023 11:02 AM CDT Adalgisa Venegas MD LAB BLOOD ORDERABLES Adriana l Result [facility] ([facility]) 1 [facility] [employer] [place] [address] * CBC with auto differential (01/16/2023 10:59 AM CDT) WBC 6.8 3.8 - 9.9 K/cumm [facility] ([facility]) Hgb 12.3 11.9 - 15.5 g/dL [facility] ([facility]) Hct 36.8 35.6 - 45.5 % [facility] ([place]) Plt 237 150 - 400 K/cumm [facility] ([facility]) MPV 9.2 9.1 - 12.3 fL [facility] ([facility]) RBC 3.90 3.90 - 5.20 M/cumm [facility] ([facility]) MCV 94.4 81.3 - 96.4 fL [facility] ([facility]) MCH 31.5 27.1 - 33.3 pg [facility] ([facility]) MCHC 33.4 32.3 - 35.7 g/dL [facility] ([place]) RDW CV 11.9 11.1 - 14.9 % [facility] ([place]) RDW SD 41.1 35.7 - 48.1 fL [facility] ([facility]) NRBC abs 0.00 0.00 - 0.01 K/cumm [facility] ([facility]) Blood 01/16/2023 10:5 9 AM CDT 01/16/2023 11:02 AM CDT Adalgisa Venegas MD LAB BLOOD ORDERABLES Adriana bustamante Result [facility] ([facility]) 1 [facility] [place] [address] * ECG 12 lead (01/16/2023 10:50 AM CDT) 01/16/2023 10:5 0 AM CDT Narrative [facility] - 01/16/2023 11:53 AM CDT Vent Rate: 70 bpm RR Interval: 853 msec MO Interval: 162 msec QRS Duration: 89 msec QT Interval: 371 msec QTC Interval: 392 msec P-R-T Page: 33 - 20 - 17 degrees SINUS RHYTHM WITH SINUS ARRHYTHMIA MINIMAL VOLTAGE CRITERIA FOR LVH, CONSIDER NORMAL VARIANT ??[MEETS CRITERIA IN ONE OF: R(aVL), S(V1), R(V5), R(V5/V6)+S(V1)] NONSPECIFIC T-WAVE ABNORMALITY BORDERLINE ECG Electronically Signed By: Donald Hansen MD us Adalgisa Venegas MD ECG ORDERABLES Final Res ult [facility] documented in this encounter Visit Diagnoses Diagnosis Dizziness- Primary Dizziness and giddiness Sinusitis, unspecified chronicity, unspecified location documented in this encounter Administered Medications Inactive Administered Medications - up to 3 most recent administrations Medication Order MAR Action Action Date Dose Rate Site sodium chloride 0.9% bolus 1,000 mL 1,000 mL, intravenous, at 1,000 mL/hr, Administer over 1 Hours, Once, On Mildred 01/16/23 at 1357, For 1 dose New Bag 01/16/2023 1:56 PM CDT 1,000 mL 100 0 mL/hr documented in this encounter Active and Recently Administered Medications Times are shown in CDT. Scheduled Medication Order 01/14/2023 01/15/2023 01/16/2023 sodium chloride 0.9% bolus 1,000 mL (COMPLETED) 1,000 mL, intravenous, at 1,000 mL/hr, Administer over 1 Hours, Once, On Mildred 01/16/23 at 1357, For 1 dose 1356 (New Bag - Prov ider: Catie Mcfarland, AVTAR)[phone] (Stopped - Provider: Catie Mcfarland RN) documented in this encounter Orders Medications Ordered That Mehdi ht Not Have Been Administered Count Last Ordered Date First Ordered Date sodium chloride 0.9% bolus 1,000 mL 1 01/16 documented in this encounter Care Teams Dedicated Owner Operator Relationship Specialty Start Date End Date Orin Bond NP [address] [place] [address] PCP - General Emergency Medicine 01/16/23 documented as of this encounter
--- OUTSIDE RECORDS SUMMARY | 2024-08-28 02:33 | XMS_ITS | Encounter Summary ---
Author Organization [facility] Facility Care Team Providers Care Senior Wealth Advisor Name Role Phone Unavailable Primary Care Provider Unavailabl e Encounter Details Date Type Department Care Team (Late st Contact Info) Description 05/21/2010 - 05/21/2010 11:59 PM CDT Hospital Encounter [facility] Shelley Herron A Urinary tract infection Social History Tobacco Use Types Packs/Day Years Used Date Smoking Tobacco: Never Assessed Comments Unknown Sex and Gender Information Value Date Recorded Sex Assigned at Not on file Legal Sex Female 9:03 PM [employer] Gender Identity Not on file Sexual Orientation Not on file documented as of this encounter Plan of Treatment Not on file documented as of this encounter Visit Diagnoses Diagnosis Urinary tract infection Urinary tract infection, site not specified documented in this encounter
--- OUTSIDE RECORDS SUMMARY | 2024-08-28 02:33 | XMS_ITS | Encounter Summary ---
Author Organization [facility] Address [address] [place] [address] Care Team Providers Care Mechanical Technical Service Specialist Name Role Phone No, Physician Primary Care Provider [phone] Reason for Visit * Reason Onset Date Comments Test Results 04/28/2018 Encounter Details Date Type Department Care Team (Late st Contact Info) Description 04/28/2018 Telephone [facility] [address] [address] [address] [place] [phone] Brenda Venegas MA Test Results Social History Tobacco Use Types Packs/Day Years Used Date Smoking Tobacco: Never Smokeless Tobacco: Never Alcohol Use Standard Drinks/Week Comments No 0 (1 standard drink = 0.6 oz pur e alcohol) Comments No Sex and Gender Information Value Date Recorded Sex Assigned at Not on file Legal Sex Female 9:03 PM SLP Gender Identity Not on file Sexual Orientation Not on file documented as of this encounter Miscellaneous Notes * Telephone Encounter - Lucila Santamaria RN - 05/06/2018 8:34 AM CDT Spoke with pt. Pt is scheduled for 06-19-18 * Telephone Encounter - Josué Vincent MD - 05/05/2018 6:34 PM CDT Patient is having pain from ovulation until cycle starts since stopping nursing in November; she had this pain between children in the past and takes ibuprofen. Recent sono showed a 2.5 x 1.8 x2.5 cm complex probable hemorrhagic cyst of the left ovary with surrounding mild free fluid. Since pain has been recurrent, let's recheck a pelvic sono in two months to assure resolution of complex cyst. Thanks. * Telephone Encounter - Brenda Venegas MA - 04/28/2018 12:42 PM CDT Patient is requesting Ultrasound results from 04/17/2018. Please review and advise. Ok per patient to leave results on voicemail. documented in this encounter Plan of Treatment Not on file documented as of this encounter Visit Diagnoses Not on filedocumented in this encounter Care Teams Mechanical Technical Service Specialist Relationship Specialty Start Date End Date No, Physician PCP - General 08/08/17 01/15/23 documented as of this encounter
--- OUTSIDE RECORDS SUMMARY | 2024-08-28 02:33 | XMS_ITS | Encounter Summary ---
Author Organization [facility] Address [address] [place] [address] Care Team Providers Care Stone Crusher Operator Name Role Phone No, Physician Primary Care Provider [phone] Reason for Visit * Reason Comments BREAST PAIN Encounter Details Date Type Department Care Team (Late st Contact Info) Description 03/20/2018 2:30 PM CDT Office Visit [facility] [address] [facility] [address] [place] [id number] Danielle Zamudio, SARAH [address] [facility] [address] [place], [place] [id number] Pelvic and perineal pain (Primary Dx); Encounter for contraceptive management, unspecified type Social History Tobacco Use Types Packs/Day Years Used Date Smoking Tobacco: Never Smokeless Tobacco: Never Alcohol Use Standard Drinks/Week Comments No 0 (1 standard drink = 0.6 oz pur e alcohol) Comments No Sex and Gender Information Value Date Recorded Sex Assigned at Not on file 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 Gender Identity Not on file Sexual Orientation Not on file documented as of this encounter Last Filed Vital Signs Vital Sign Reading Time Taken Comments Blood Pressure 100/80 03/20/2018 2:54 PM CDT Pulse - - Temperature - - Respiratory Rate - - Oxygen Saturation - - Inhaled Oxygen Concentration - - Weight 68.5 kg (151 lb) 03/20/2018 2:54 PM CDT Height 175 cm (5' 8.9 ) 03/20/2018 2:54 PM CDT Body Mass Index 22.36 03/20/2018 2:54 PM CDT documented in this encounter Ordered Prescriptions Prescription Sig Dispense Quantity Refills Last Filled Start Date End Date norethindrone ac-eth estradiol (LOESTRIN 09/20, ,) 1-20 mg-mcg per tablet Take 1 tablet by mouth daily. 28 tablet 03/24/2018 06/15/2018 documented in this encounter Progress Notes * Danielle Zamudio, WELDING EQUIPMENT REPAIRER SUPERVISOR - 03/20/2018 2:30 PM CDT Standard Office Visit Note Subjective: HPI: Yomaira Ford is a 27 y.o. female here with her 3 children with complaints of monthly pain during ovulation since weaning her baby in October,; at times the pain is so intense that she feels a burning sensation in low pelvis and sometimes in rectum; denies any vaginal discharge; monthly menses that are heavy for a couple days but only last 4-5 days; mother had endometriosis and endedup with a hysterectomy; has the pain for about two days midcycle; taking Ibuprofen which she statesis not helping much; discussed Tramadol and pt is receptive. at work so had three small children with her; unable to do pelvic because of small children and lack of help in our office. I have reviewed: allergies, current medications, past medical history, past surgical history and problem list Review of Systems: Review of Systems Objective: Vitals: 03/20/18 1454 BP: 100/80 BP Location: Right arm Patient Position: Sitting Weight: 151 lb (68.5 kg) Height: 175 cm (5' 8.9 ) Body mass index is 22.36 kg/m??. Physical Exam Constitutional: She is oriented to person, place, and time. She appears well- developed and well-nourished. Neck: No thyromegaly present. Cardiovascular: Normal rate and regular rhythm. Pulmonary/Chest: Effort normal and breath sounds normal. Abdominal: Soft. Neurological: She is alert and oriented to person, place, and time. Skin: Skin is warm and dry. Psychiatric: Her behavior is normal. Vitals reviewed. Assessment/Plan: Diagnoses and all orders for this visit: Pelvic and perineal pain (Primary) Comments: Schedule a pelvic US; if results benign, will schedule consult with Dr. Vincent to discuss possible interventions; if pain worsens, call office or go to ER. Encounter for contraceptive management, unspecified type Comments: Start Lo Loestrin on first day of next period; 1 tab OD x 84 days, Disp #3 packs with 3 RFS; call office with any gyne health concerns. Other orders - norethindrone ac-eth estradiol (LOESTRIN 09/20, ,) 1-20 mg-mcg per tablet; Take 1 tablet by mouth daily. Danielle Zamudio, SARAH documented in this encounter Plan of Treatment Not on file documented as of this encounter Visit Diagnoses Diagnosis Pelvic and perineal pain- Primary Encounter for contraceptive management, unspecified type documented in this encounter Care Teams Stone Crusher Operator Relationship Specialty Start Date End Date No, Physician PCP - General 08/08/17 01/15/23 documented as of this encounter
--- OUTSIDE RECORDS SUMMARY | 2024-08-28 02:34 | XMS_ITS | Encounter Summary ---
Author Organization [facility] Healthcare Address [address] [place] [address] Care Team Providers Care Technical Aid Name Role Phone Unavailable Primary Care Provider Unavailabl e Encounter Details Date Type Department Care Team (Late st Contact Info) Description 12/31/2006 7:48 PM CDT - 12/31/2006 11:59 PM CDT Hospital Encounter [facility] Social History Tobacco Use Types Packs/Day Years Used Date Smoking Tobacco: Never Assessed Comments Unknown Sex and Gender Information Value Date Recorded Sex Assigned at Not on file Legal Sex Female 9:03 PM CONFERENCE RESERVATIONIST Gender Identity Not on file Sexual Orientation Not on file documented as of this encounter Plan of Treatment Not on file documented as of this encounter Visit Diagnoses Not on filedocumented in this encounter
--- OUTSIDE RECORDS SUMMARY | 2024-08-28 02:34 | XMS_ITS | Encounter Summary ---
Author Organization [facility] Healthcare Address [address] [place] [address] Care Team Providers Care Radial Drill Operator For Plastic Name Role Phone Unavailable Primary Care Provider Unavailabl e Encounter Details Date Type Department Care Team (Late st Contact Info) Description 01/27/2007 8:03 PM CDT - 01/27/2007 11:59 PM CDT Hospital Encounter [facility] Social History Tobacco Use Types Packs/Day Years Used Date Smoking Tobacco: Never Assessed Comments Unknown Sex and Gender Information Value Date Recorded Sex Assigned at Not on file Legal Sex Female 9:03 PM COVER MACHINE OPERATOR Gender Identity Not on file Sexual Orientation Not on file documented as of this encounter Plan of Treatment Not on file documented as of this encounter Visit Diagnoses Not on filedocumented in this encounter
--- OUTSIDE RECORDS SUMMARY | 2024-08-28 02:36 | XMS_ITS ---
Author Organization [facility] Address [address] [place] [address] , [address] [place] [address] Phone Care Team Providers Care Drag Car Racer Name Role Phone Juan David Mckeon MD Unavailable [phone] Conditions or Problems No information available. Medications No information available. Medications Administered No information available. Allergies, Adverse Reactions, Alerts No information available. Results No information available. Plan of Care No information available. Procedures No information available. Vital Signs No information available. Immunizations No information available. Advance Directives No information available.
--- OUTSIDE RECORDS SUMMARY | 2024-08-28 02:36 | XMS_ITS | Encounter Summary ---
Author Organization [employer] [facility] Address [place], [place] [address] Care Team Providers Care Aerophysicist Name Role Phone Catie Cosme MD Primary Care Provider [phone] Encounter Details Date Type Department Care Team (Latest Contact Info) Description 07/01/2024 Travel Social History Tobacco Use Types Packs/Day Years Used Date Smoking Tobacco: Never Assessed [facility] Utilities Answer Date Recorded Do you have trouble paying f or utilities (for example, heat, electricity, water, phone)? Yes 07/01/2024 Social Connections Answer Date Recorded Do you often feel lonely or isolated from those around you? 4 07/01/2024 Financial Resource Strain Answer Date R ecorded Difficulty of Paying Living Expenses 3 07/02/2024 Difficulty of Paying Living Expenses Not on file 07/02/2024 Food Insecurity Answer Date Recorded Do you worry your food will run out before you are able to buy more? 1 07/01/2024 Transportation Needs Answer Date Record ed Does lack of transportation keep you from medica l appointments? 1 07/01/2024 Does lack of transportation keep you from work, meetings or getting things that you need? 1 07/01/2024 Housing Stability Answer Date Recorded What is your housing situation today? 1 07/01/2024 Comments Unknown Sex and Gender Information Value Date Recorded Sex Assigned at Not on file Legal Sex Female 12:08 PM CDT Gender Identity Not on file Sexual Orientation Not on file documented as of this encounter Plan of Treatment Upcoming Encounters Date Type Department Care Team (Late Contact Info) Description 10/14/2024 10:00 AM ROPE CUTTER Telemedicine [facility] & [address] [place] [phone] Rikki Hernandez MD [address] [place] [address] documented as of this encounter Visit Diagnoses Not on filedocumented in this encounter Care Teams Aerophysicist Relationship Specialty Start [place] [address] [place] [phone] PCP - General Internal Medicine 03/19/24 documented as of this encounter
--- OUTSIDE RECORDS SUMMARY | 2024-08-28 02:36 | XMS_ITS | Referral Summary ---
Author Organization [employer] [facility] Address [place], [place] [address] Care Team Providers Care Clinical Instructor Name Role Phone Catie Cosme MD Primary Care Provider Encounters Date Type Department Care Team Description 08/05/2024 Travel 08/05/2024 10:20 AM PARKING LOT ATTENDANT Orders Only [facility] [address] [place] [address] Lab, Appv Lab 07/02/2024 10:00 AM CDT Telemedicine [facility] [address] [place] [address] Rikki Hernandez MD Consult; Telehealth (Fatigue, Sleep issues, POTS) 07/01/2024 Travel from Last 3 Months Allergies Active Allergy Reactions Criticality Noted Date Comments Gadolinium-Containin g Contrast Media Hives,Itching,Rash,R unny Nose Medium 02/04/2023 Pt received Prohance 16ml. Itchy throat, rash, [...] completed MRI/MRA Brain & Neck w/wo using [facility] contast- premedicated 13 hour regimen successfully with no issues Ofloxacin Other - Describe In Comment Field 04/06/2024 Hives Pollen Extracts Runny Nose 07/02/2024 Medications norethindrone-e. estradioL-iron (Lo Loestrin Fe) 1 mg-10 mcg (24)/10 mcg (2) tab Take 1 Tablet by mouth once daily. 01/21/2024 Active propranoloL (INDERAL) 10 mg tablet Take 10 mg by mouth. 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 1 07/01/2024 Comments No Sex and Gender Information Value Date Recorded Sex Assigned at Not on file Legal Sex Female 12:08 PM CDT Gender Identity Not on file Sexual Orientation Not on file Plan of Treatment Upcoming Encounters Date Type Department Care Team (Late st Contact Info) Description 10/14/2024 10:00 AM PARKING LOT ATTENDANT Telemedicine [facility] [address] [place] [phone] Rikki Hernandez MD [address] [place] [address] Procedures Procedure Name Priority Date/Time Associated Diagnosis Comments VA BLOOD COUNT COMPLETE AUTO&AUTO DIFRNTL WBC Routine 08/05/2024 11:34 AM PARKING LOT ATTENDANT Fatigue, unspecified type EBV AB IGG IGM AND EBNA Routine 08/05/20 11:22 AM PARKING LOT ATTENDANT Fatigue, unspecified type COMP METABOLIC PANEL Routine 08/05/2024 11:22 AM PARKING LOT ATTENDANT Fatigue, unspecified type C-REACTIVE PROTEIN Routine 08/05/2024 11 :22 AM PARKING LOT ATTENDANT Fatigue, unspecified type HOMOCYSTEINE,TOTAL Routine 08/05/2024 11 :22 AM PARKING LOT ATTENDANT Fatigue, unspecified type FERRITIN Routine 08/05/2024 11:22 AM PARKING LOT ATTENDANT Fatigue, unspecified type IRON PLUS IRON BINDING CAP Routine 08/05/2024 11:22 AM PARKING LOT ATTENDANT Fatigue, unspecified type T3,FREE Routine 08/05/2024 11:22 AM PARKING LOT ATTENDANT Fatigue, unspecified type T4,FREE Routine 08/05/2024 11:22 AM PARKING LOT ATTENDANT Fatigue, unspecified type TESTOSTERONE,TOTAL Routine 08/05/2024 11 :22 AM PARKING LOT ATTENDANT Fatigue, unspecified type TSH Routine 08/05/2024 11:22 AM PARKING LOT ATTENDANT Fatigue, unspecified type THYROPEROXIDASE ANTIBODY Routine 08/05/2024 11:22 AM PARKING LOT ATTENDANT Fatigue, unspecified type URIC ACID Routine 08/05/2024 11:22 AM PARKING LOT ATTENDANT Fatigue, unspecified type VITAMIN B12 Routine 08/05/2024 11:22 AM PARKING LOT ATTENDANT Fatigue, unspecified type VITAMIN B6 BLOOD Routine 08/05/2024 11:2 2 AM PARKING LOT ATTENDANT Fatigue, unspecified type VITAMIN D 25 (DEFICIENCY) Routine 08/05/2024 11:22 AM PARKING LOT ATTENDANT Fatigue, unspecified type DHEA-SULFATE (DHEA-S) Routine 08/05/2024 11:22 AM PARKING LOT ATTENDANT Fatigue, unspecified type ESTRADIOL Routine 08/05/2024 11:22 AM PARKING LOT ATTENDANT Fatigue, unspecified type PROGESTERONE Routine 08/05/2024 11:22 AM PARKING LOT ATTENDANT Fatigue, unspecified type FSH Routine 08/05/2024 11:22 AM PARKING LOT ATTENDANT Fatigue, unspecified type from Last 3 Months Results * CBC AND DIFFERENTIAL (08/05/2024 11:34 AM PARKING LOT ATTENDANT) WHITE BLOOD CELL COUNT 5.3 3.8 - 10.8 Thousand/u L [facility] (U RED BLOOD CELL COUNT 4.28 3.80 - 5.10 Million/uL [facility] (U HEMOGLOBIN 13.5 11.7 - 15.5 g/dL [facility] (U HEMATOCRIT 40.4 35.0 - 45.0 % [facility] (U MCV 94.4 80.0 - 100.0 fL [facility] (U MCH 31.5 27.0 - 33.0 pg [facility] (U MCHC 33.4 32.0 - 36.0 g/dL [facility] (U Comment: For adults, a slight decrease in the calculated MCHC value (in the range of 30 to 32 g/dL) is most likely not clinically significant; however, it should be interpreted with caution in correlation with other red cell parameters and the patient's clinical condition. RDW 11.6 11.0 - 15.0 % [facility] (U PLATELET COUNT 219 140 - 400 Thousand/u L [facility] (U MPV 9.3 7.5 - 12.5 fL [facility] (U ABSOLUTE NEUTROPHILS 2,740 1,500 - 7,800 cells/uL [facility] (U ABSOLUTE LYMPHOCYTES 1,956 850 - 3,900 cells/uL [facility] (U ABSOLUTE MONOCYTES 504 200 - 950 cells/uL [facility] (U ABSOLUTE EOSINOPHILS 90 15 - 500 cells/uL [facility] (U ABSOLUTE BASOPHILS 11 0 - 200 cells/uL [facility] (U NEUTROPHILS 51.7 % [facility] (U LYMPHOCYTES 36.9 % [facility] (U MONOCYTES 9.5 % [facility] (U EOSINOPHILS 1.7 % [facility] (U BASOPHILS 0.2 % [facility] (U Blood BLOOD SPECIMEN / Unknown 08/05/2024 11:34 AM PARKING LOT ATTENDANT 08/05/2024 11:35 AM PARKING LOT ATTENDANT Narrative [facility] - 08/05/2024 12:03 PM PARKING LOT ATTENDANT SPLIT 08/05/2024 FROM [id number] us Rikki Hernandez MD HEMATOLOGY Final R esult [facility] [address] [place] [address], [facility] (U [address] [facility] [address] * VITAMIN B6 BLOOD (08/05/2024 11:22 AM PARKING LOT ATTENDANT) [facility] VITAMIN B6, PLASMA 12.3 2.1 - 21.7 ng/mL [facility] Comment: (Note) Vitamin supplementation within 24 hours prior to blood draw may affect the accuracy of results. This test was developed and its analytical performance characteristics have been determined by [employer]. It has not been cleared or approved by the FDA. This assay has been validated pursuant to the CLIA regulations and is used for clinical purposes. [facility] [address] [address],[address] [place] [address] Amelia Watson MD, PhD Blood BLOOD SPECIMEN / Unknown 08/05/2024 11:22 AM PARKING LOT ATTENDANT 08/05/2024 11:23 AM PARKING LOT ATTENDANT Narrative [facility] - 08/08/2024 7:01 PM PARKING LOT ATTENDANT MULTIPLE TESTING PRIORITIES; ROUTINE TESTING TO FOLLOW. Rikki Hernandez MD CHEMISTRY Final R esult [facility] [address] [place] [phone], [facility] [address] [address], [address] [place] [address] * VITAMIN D 25 (DEFICIENCY) (08/05/2024 11:22 AM PARKING LOT ATTENDANT) [facility] VITAMIN D,25-OH,TOTAL,IA 47 30 - 100 ng/mL [facility] Comment: Vitamin D Status ? 25-OH Vitamin D: Deficiency: ?<20 ng/mL Insufficiency: ? 20 - 29 ng/mL Optimal: ? > or = 30 ng/mL For 25-OH Vitamin D testing on patients on D2-supplementation and patients for whom quantitation of D2 and D3 fractions is required, the Quest[facility]ure[facility](TM) 25-OH VIT D, (D2,D3), LC/MS/MS is recommended: order code 36457 (patients >2yrs). See Note 1 Note 1 For additional information, please refer to http://education.[employer]/faq/IYO002 (This link is being provided for informational/ educational purposes only.) Blood BLOOD SPECIMEN / Unknown 08/05/2024 11:22 AM PARKING LOT ATTENDANT 08/05/2024 11:23 AM PARKING LOT ATTENDANT Narrative [facility] - 08/06/2024 4:32 AM PARKING LOT ATTENDANT MULTIPLE TESTING PRIORITIES; ROUTINE TESTING TO FOLLOW. Rikki Hernandez MD SEND OUTS Final R esult Performing Organization Address [facility] Co de Phone Number [facility] [address] [place] [address], [place] [phone] [employer] [address] [place] [address] * TSH (08/05/2024 11:22 AM PARKING LOT ATTENDANT) TSH 0.54 mIU/L [facility] kathleen Layne Comment: ?Reference Range ?> or = 20 Years ??0.40-4.50 ? Ranges ?First trimester ?0.26-2.66 ?Second trimester ?? 0.55-2.73 ?Third trimester ?0.43-2.91 Blood BLOOD SPECIMEN / Unknown 08/05/2024 11:22 AM PARKING LOT ATTENDANT 08/05/2024 11:23 AM PARKING LOT ATTENDANT Narrative [facility] - 08/06/2024 4:32 AM PARKING LOT ATTENDANT MULTIPLE TESTING PRIORITIES; ROUTINE TESTING TO FOLLOW. Rikki Hernandez MD CHEMISTRY Final R esult Performing Organization Address [facility]/ZIP Co de Phone Number [facility] [address] [place] [address], [employer] [address] [place] [address] * (ABNORMAL) EBV AB IGG IGM AND EBNA (08/05/2024 11:22 AM PARKING LOT ATTENDANT) EBV VIRAL CAPSID AG (VCA) AB (IGM) <36.00 U/mL [facility] Comment: ?U/mL ?Interpretation ?---- ?<36.00 ?Negative ?36.00-43.99 ? Equivocal ?>43.99 ?Positive EBV VIRAL CAPSID AG (VCA) AB (IGG) 102.00(H) U/mL [facility] Comment: ? U/mL ? Interpretation ? ---- ? <18.00 ? Negative ? 18.00-21.99 ?Equivocal ? >21.99 ? Positive EBV NUCLEAR AG (EBNA) AB (IGG) 276.00(H) U/mL [facility] soheilakathleen Layne Comment: ? U/mL ? Interpretation ? ---- ? <18.00 ? Negative ? 18.00-21.99 ?Equivocal ? >21.99 ? 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 In infants, a similar pattern may occur as a result of passive maternal transfer of antibody. Blood BLOOD SPECIMEN / Unknown 08/05/2024 11:22 AM PARKING LOT ATTENDANT 08/05/2024 11:23 AM PARKING LOT ATTENDANT Narrative [facility] - 08/06/2024 12:30 PM PARKING LOT ATTENDANT MULTIPLE TESTING PRIORITIES; ROUTINE TESTING TO FOLLOW. Rikki Hernandez MD SEND OUTS Final R esult Performing Organization Address [facility]/ZIP Co de Phone Number [facility] [address] [place] [address], [facility] [address] [place] [address] * IRON PLUS IRON BINDING CAP (08/05/2024 11:22 AM PARKING LOT ATTENDANT) IRON, TOTAL 129 40 - 190 mcg/dL [facility] IRON BINDING CAPACITY 317 250 - 450 mcg/dL (calc) [facility] % SATURATION 41 16 - 45 % (calc) [facility] Blood BLOOD SPECIMEN / Unknown 08/05/2024 11:22 AM PARKING LOT ATTENDANT 08/05/2024 11:23 AM PARKING LOT ATTENDANT Narrative [facility] - 08/06/2024 6:07 AM PARKING LOT ATTENDANT MULTIPLE TESTING PRIORITIES; ROUTINE TESTING TO FOLLOW. Rikki Hernandez MD CHEMISTRY Final R esult Performing Organization Address [facility]/ZIP Co de Phone Number [facility] [address] [place] [address], [facility] [address] [place] [address] * THYROPEROXIDASE ANTIBODY (08/05/2024 11:22 AM PARKING LOT ATTENDANT) THYROID PEROXIDASE ANTIBODIES <1 <9 IU/mL [facility] Blood BLOOD SPECIMEN / Unknown 08/05/2024 11:22 AM PARKING LOT ATTENDANT 08/05/2024 11:23 AM PARKING LOT ATTENDANT Narrative [facility] - 08/06/2024 12:08 PM PARKING LOT ATTENDANT MULTIPLE TESTING PRIORITIES; ROUTINE TESTING TO FOLLOW. Rikki Hernandez MD SEND OUTS Final R esult Performing Organization Address [facility]/ZIP Co de Phone Number [facility] [address] [place] [phone], [facility] [address] [place] [address] * C-REACTIVE PROTEIN (08/05/2024 11:22 AM PARKING LOT ATTENDANT) C-REACTIVE PROTEIN <3.0 <8.0 mg/L [facility] kathleen Layne Blood BLOOD SPECIMEN / Unknown 08/05/2024 11:22 AM PARKING LOT ATTENDANT 08/05/2024 11:23 AM PARKING LOT ATTENDANT Narrative [facility] - 08/06/2024 10:21 AM PARKING LOT ATTENDANT MULTIPLE TESTING PRIORITIES; ROUTINE TESTING TO FOLLOW. Rikki Hernandez MD CHEMISTRY Final R esult Performing Organization Address [facility] Co de Phone Number [facility] [address] [place] [address], [facility] [address] [place] [address] * URIC ACID (08/05/2024 11:22 AM PARKING LOT ATTENDANT) URIC ACID 4.1 2.5 - 7.0 mg/dL [facility] kathleen Layne Comment: Therapeutic target for gout patients: <6.0 mg/dL ?? Blood BLOOD SPECIMEN / Unknown 08/05/2024 11:22 AM PARKING LOT ATTENDANT 08/05/2024 11:23 AM PARKING LOT ATTENDANT Narrative [facility] - 08/06/2024 6:07 AM PARKING LOT ATTENDANT MULTIPLE TESTING PRIORITIES; ROUTINE TESTING TO FOLLOW. Rikki Hernandez MD CHEMISTRY Final R esult Performing Organization Address [facility]/ZIP Co de Phone Number [facility] [address] [place] [address], [place] [phone] [facility] [address] [place] [address] * T3,FREE (08/05/2024 11:22 AM PARKING LOT ATTENDANT) T3, FREE 3.3 2.3 - 4.2 pg/mL [facility] Blood BLOOD SPECIMEN / Unknown 08/05/2024 11:22 AM PARKING LOT ATTENDANT 08/05/2024 11:23 AM PARKING LOT ATTENDANT Narrative [facility] - 08/06/2024 4:32 AM PARKING LOT ATTENDANT MULTIPLE TESTING PRIORITIES; ROUTINE TESTING TO FOLLOW. Rikki Hernandez MD CHEMISTRY Final R esult Performing Organization Address [facility] Co de Phone Number [facility] [employer] [facility] [address] [place] [address], [place] [phone] [facility] [address] [facility] [place] [address] * T4,FREE (08/05/2024 11:22 AM PARKING LOT ATTENDANT) T4, FREE 1.3 0.8 - 1.8 ng/dL [facility] Blood BLOOD SPECIMEN / Unknown 08/05/2024 11:22 AM PARKING LOT ATTENDANT 08/05/2024 11:23 AM PARKING LOT ATTENDANT Narrative [facility] - 08/06/2024 4:32 AM PARKING LOT ATTENDANT MULTIPLE TESTING PRIORITIES; ROUTINE TESTING TO FOLLOW. Rikki Hernandez MD CHEMISTRY Final R esult Performing Organization Address [facility] Co de Phone Number [facility] [address] [facility] [place] [address], [place] [phone] [facility] [address] [place] [address] * (ABNORMAL) TESTOSTERONE,TOTAL (08/05/2024 11:22 AM PARKING LOT ATTENDANT) TESTOSTERONE, TOTAL, MS 51(H) 2 - 45 ng/dL [facility] Comment: For additional information, please refer to https://education.Schoolfy/faq/TotalTestosteroneLCMSMS (This link is being provided for informational/educational purposes only.) (Note) This test was developed and its analytical performance characteristics have been determined by [employer]. It has not been cleared or approved by the FDA. This assay has been validated pursuant to the CLIA regulations and is used for clinical purposes. [facility] [address] [address],[address] [place] [address] Amelia Watson MD, PhD Blood BLOOD SPECIMEN / Unknown 08/05/2024 11:22 AM PARKING LOT ATTENDANT 08/05/2024 11:23 AM PARKING LOT ATTENDANT [facility] - 08/08/2024 9:43 PM PARKING LOT ATTENDANT MULTIPLE TESTING PRIORITIES; ROUTINE TESTING TO FOLLOW. us Rikki Hernandez MD CHEMISTRY Final R esult [facility] [address] [address], [facility] [address] [address], [address] [place] [address] * PROGESTERONE (08/05/2024 11:22 AM PARKING LOT ATTENDANT) Pathologist [facility] PROGESTERONE <0.5 ng/mL [facility] Comment: ?Reference Ranges ? Female ?Follicular Phase ? < 1.0 ?Luteal Phase ?2.6-21.5 ?Post menopausal ?< 0.5 ?1st Trimester ? 4.1-34.0 ?2nd Trimester ?24.0-76.0 ?3rd Trimester ?? 52.0-302.0 Blood BLOOD SPECIMEN / Unknown 08/05/2024 11:22 AM PARKING LOT ATTENDANT 08/05/2024 11:23 AM PARKING LOT ATTENDANT Narrative [facility] - 08/06/2024 4:32 AM PARKING LOT ATTENDANT MULTIPLE TESTING PRIORITIES; ROUTINE TESTING TO FOLLOW. Rikki Hernandez MD SEND OUTS Final R esult Performing Organization Address [facility] Co de Phone Number [facility] [address] [place] [address], [facility] [address] [place] [address] * HOMOCYSTEINE,TOTAL (08/05/2024 11:22 AM PARKING LOT ATTENDANT) HOMOCYSTEINE 6.4 <10.4 umol/L [facility] Comment: Homocysteine is increased by functional deficiency of folate or vitamin B12. Testing for methylmalonic acid differentiates between these deficiencies. Other causes of increased homocysteine include renal failure, folate antagonists such as methotrexate and phenytoin, and exposure to nitrous oxide. Zion Díaz et al., Nettie [employer] Architect Med. 1999;131(5):331-9. Blood BLOOD SPECIMEN / Unknown 08/05/2024 11:22 AM PARKING LOT ATTENDANT 08/05/2024 11:23 AM PARKING LOT ATTENDANT Narrative [facility] - 08/06/2024 4:32 PM PARKING LOT ATTENDANT MULTIPLE TESTING PRIORITIES; ROUTINE TESTING TO FOLLOW. Rikki Hernandez MD CHEMISTRY Final R esult Performing Organization Address [facility]/ZIP Co de Phone Number [facility] [address] [place] [address], [facility] [address] [place] [address] * FSH (08/05/2024 11:22 AM PARKING LOT ATTENDANT) FSH 5.2 mIU/mL [facility] Comment: ?Reference Range ? Follicular Phase ? 2.5-10.2 ? Mid-cycle Peak ? 3.1-17.7 ? Luteal Phase ? 1.5- 9.1 ? Postmenopausal ? 23.0-116.3 ? Blood BLOOD SPECIMEN / Unknown 08/05/2024 11:22 AM PARKING LOT ATTENDANT 08/05/2024 11:23 AM PARKING LOT ATTENDANT Narrative [facility] - 08/06/2024 4:32 AM PARKING LOT ATTENDANT MULTIPLE TESTING PRIORITIES; ROUTINE TESTING TO FOLLOW. Rikki Hernandez MD CHEMISTRY Final R [employer] Performing Organization Address [facility] de Phone Number [facility] [address] [address], [employer] [address] * FERRITIN (08/05/2024 11:22 AM PARKING LOT ATTENDANT) FERRITIN 49 16 - 154 ng/mL [facility] Blood BLOOD SPECIMEN / Unknown 08/05/2024 11:22 AM PARKING LOT ATTENDANT 08/05/2024 11:23 AM PARKING LOT ATTENDANT Narrative [facility] - 08/06/2024 4:32 AM PARKING LOT ATTENDANT MULTIPLE TESTING PRIORITIES; ROUTINE TESTING TO FOLLOW. Rikki Hernandez MD CHEMISTRY Final R [employer] Performing Organization Address [facility] Co de Phone Number [facility] [address] [facility] [place] [address], [facility] [address] [facility] [place] [address] * ESTRADIOL (08/05/2024 11:22 AM PARKING LOT ATTENDANT) [facility] ESTRADIOL 103 pg/mL [facility] Comment: ?Reference Range ?Follicular Phase: ?19-144 ?Mid-Cycle: ? 64-357 ?Luteal Phase: ?56-214 ?Postmenopausal: ?< or = 31 ? Reference range established on post-pubertal patient population. No pre-pubertal reference range established using this assay. For any patients for whom low Estradiol levels are anticipated (e.g. males, pre-pubertal children and hypogonadal/post-menopausal females), the [facility] Estradiol, Ultrasensitive, LCMSMS assay is recommended (order code 54165). ?? Please note: patients being treated with the drug fulvestrant (Faslodex(R)) have demonstrated significant interference in immunoassay methods for estradiol measurement. The cross reactivity could lead to falsely elevated estradiol test results leading to an inappropriate clinical assessment of estrogen status. [facility] order code [id number], Ultrasensitive LC/MS/MS demonstrates negligible cross reactivity with fulvestrant. Blood BLOOD SPECIMEN / Unknown 08/05/2024 11:22 AM PARKING LOT ATTENDANT 08/05/2024 11:23 AM PARKING LOT ATTENDANT Narrative [facility] - 08/06/2024 5:44 AM PARKING LOT ATTENDANT MULTIPLE TESTING PRIORITIES; ROUTINE TESTING TO FOLLOW. us Rikki Hernandez MD SEND OUTS Final R esult [facility] [address] [facility] [place] [address], [facility] [address] [place] [address] * DHEA-SULFATE (DHEA-S) (08/05/2024 11:22 AM PARKING LOT ATTENDANT) [facility] DHEA SULFATE 178 19 - 237 mcg/dL [facility] kathleen Cardosoe Blood BLOOD SPECIMEN / Unknown 08/05/2024 11:22 AM PARKING LOT ATTENDANT 08/05/2024 11:23 AM PARKING LOT ATTENDANT Narrative [facility] - 08/06/2024 4:32 AM PARKING LOT ATTENDANT MULTIPLE TESTING PRIORITIES; ROUTINE TESTING TO FOLLOW. Rikki Hernandez MD SEND OUTS Final R esult Performing Organization Address City/[facility]/ZIP Co de Phone Number [facility] [address] [place] [address], [employer] [address] [place] [address] * VITAMIN B12 (08/05/2024 11:22 AM PARKING LOT ATTENDANT) [facility] VITAMIN B12 401 200 - 1,100 pg/mL [facility] kathleen Cardosoe Blood BLOOD SPECIMEN / Unknown 08/05/2024 11:22 AM PARKING LOT ATTENDANT 08/05/2024 11:23 AM PARKING LOT ATTENDANT Narrative [facility] - 08/06/2024 4:32 AM PARKING LOT ATTENDANT MULTIPLE TESTING PRIORITIES; ROUTINE TESTING TO FOLLOW. Rikki Henrandez MD CHEMISTRY Final R esult Performing Organization Address City/[facility]/ZIP Co de Phone Number [facility] [address] [place] [address], [facility] [facility] [address] [place] [address] * COMP METABOLIC PANEL (08/05/2024 11:22 AM PARKING LOT ATTENDANT) [facility] GLUCOSE 81 65 - 99 mg/dL [facility] okathleen Layne Comment: ? Fasting reference interval UREA NITROGEN (BUN) 13 7 - 25 mg/dL [facility] CREATININE 0.75 0.50 - 0.97 mg/dL [facility] EGFR 106 > OR = 60 mL/min/1. 73m2 [facility] BUN/CREATININE RATIO SEE NOTE: (calc) [facility] Comment: ?? Not Reported: BUN and Creatinine are within ?? reference range. ? SODIUM 140 135 - 146 mmol/L [facility] POTASSIUM 3.7 3.5 - 5.3 mmol/L [facility] CHLORIDE 106 98 - 110 mmol/L [facility] CARBON DIOXIDE 25 20 - 32 mmol/L [facility] CALCIUM 9.3 8.6 - 10.2 mg/dL [facility] PROTEIN, TOTAL 7.3 6.1 - 8.1 g/dL [facility] ALBUMIN 4.4 3.6 - 5.1 g/dL [facility] GLOBULIN 2.9 1.9 - 3.7 g/dL (calc) [facility] ALBUMIN/GLOBULIN RATIO 1.5 1.0 - 2.5 (calc) [facility] BILIRUBIN, TOTAL 0.5 0.2 - 1.2 mg/dL [facility] ALKALINE PHOSPHATASE 36 31 - 125 U/L [facility] AST 13 10 - 30 U/L [facility] ALT 10 6 - 29 U/L [facility] Blood BLOOD SPECIMEN / Unknown 08/05/2024 11:22 AM [employer] ATTENDANT 08/05/2024 11:23 AM [employer] ATTENDANT Narrative [facility] - 08/06/2024 6:07 AM [employer] ATTENDANT MULTIPLE TESTING PRIORITIES; ROUTINE TESTING TO FOLLOW. us Rikki Hernandez MD CHEMISTRY Final R esult [facility] [address] [place] [address], [place] [phone] [facility] [address] [place] [address] from Last 3 Months Insurance [id number] Care Teams Clinical Instructor Relationship Specialty [place] [address] [place] [address] PCP - General Internal Medicine 03/19/24
--- OUTSIDE RECORDS SUMMARY | 2024-08-28 02:36 | XMS_ITS ---
Author Organization [facility] Address [address] , [address] [place] [address] Phone Care Team Providers Care Founder And Chief Executive Officer Name Role Phone Juan David Mckeon MD Unavailable [phone] Conditions or Problems Problem Name Problem Code Onset Date Status Entry Date Provider Comment Standard Description Annotate Low ferritin R79.0 (ICD-10-CM) Active Juan David Mckeon MD Abnormal level of blood mineral Palpitations [id number] (SNOMED CT) Active Juan David Mckeon MD Palpitations Dysautonomia [id number] (SNOMED CT) Active Juan David Mckeon MD Disorder of autonomic nervous system Cervicogenic headache [id number] (SNOMED CT) Active Juan David Mckeon MD Cervicogenic headache Paresthesia [id number] (SNOMED CT) Active Juan David Mckeon MD Paresthesia Medications No information available. Medications Administered No information available. 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 Plan of Care Type Date Detail Pending order Follow up as nee ded Pending order Ferritin Serum Pending order Lyme Total Ab w/ Reflex (reflex to Western Blot) Procedures Code Procedure Name Date Entry Date ORDERS Ferritin Serum ORDERS Lyme Total Ab w/Reflex (reflex to Western Blot) Vital Signs Date Name Value Unit Description BMI (Body Mass Index) 24.75 kg/m2 Bod y Mass Index (Ratio) BP Diastolic 77 mm[Hg] blood pressu re, diastolic BP Diastolic 81 mm[Hg] blood pressu re, diastolic, second observation BP Systolic 119 mm[Hg] blood pressur e, systolic BP Systolic 119 mm[Hg] blood pressur e, systolic, second observation Heart Rate 73 /min pulse rate Heart Rate 82 pulse rate #2 Height 68.5 [in_us] height E&M Respiratory Rate 11 /min respirat ory rate E&M Weight Measured 164.6 [lb_av] weight E& M Weight Measured 74.82 kg weight in kilograms E&M Immunizations No information available. Advance Directives No information available.
--- OUTSIDE RECORDS SUMMARY | 2024-08-28 02:36 | XMS_ITS | Clinical Summary ---
Author Organization [employer] [facility] Address [place], [place] [address] Care Team Providers Care Shampoo Technician Name Role Phone Catie Cosme MD Primary Care Provider Allergies Active Allergy Reactions Criticality Noted Date [...] Active Active Problems No known active problems Encounters Date Type Department Care Team Description 08/05/2024 10:20 AM PASTER HAT LINING Orders Only [facility] [address] [place] [address] Lab, Appv Lab 08/05/2024 Travel 07/02/2024 10:00 AM CDT Telemedicine [facility] [address] [place] [address] Rikki Hernandez MD Consult; Telehealth (Fatigue, Sleep issues, POTS) 07/01/2024 Travel from Last 3 Months Social History Tobacco Use Types Packs/Day Years Used Date Smoking Tobacco: Never Smokeless Tobacco: Never Tobacco Cessation:Counseling Given: Not Answered Alcohol Use Standard Drinks/Week Comments Not Currently 0 (1 standard drink = 0.6 oz pur e alcohol) [facility] Utilities Answer Date Recorded Do you have [...] st Contact Info) Description 10/14/2024 10:00 AM PASTER HAT LINING Telemedicine [facility] [address] [place] [phone] Rikki Hernandez MD [address] [place] [address] Health Maintenance Due Date Last Done Comments Tdap 2000 Depression screening for age 12+ 2001 HIV for age 15-65 2004 BMI (ht and wt on same day) for age 18+ 2007 Hepatitis C screening for ag e 18-79 2007 Tetanus booster 2009 Pap test for age 21-65 2010 COVID-19 vaccine series ( season) 2024 Influenza for age 9-49 05/02/2024 Pneumococcal series for age 6-49 Aged Out No longer eligible based on patient's age to complete this topic Procedures Procedure Name Priority Date/Time Associated Diagnosis Comments CT BLOOD COUNT COMPLETE AUTO&AUTO DIFRNTL WBC Routine 08/05/2024 11:34 AM PASTER HAT LINING Fatigue, unspecified type EBV AB IGG IGM AND EBNA Routine 08/05/20 24 11:22 AM PASTER HAT LINING Fatigue, unspecified type COMP METABOLIC PANEL Routine 08/05/2024 11:22 AM PASTER HAT LINING Fatigue, unspecified type C-REACTIVE PROTEIN Routine 08/05/2024 11 :22 AM PASTER HAT LINING Fatigue, unspecified type HOMOCYSTEINE,TOTAL Routine 08/05/2024 11 :22 AM PASTER HAT LINING Fatigue, unspecified type FERRITIN Routine 08/05/2024 11:22 AM PASTER HAT LINING Fatigue, unspecified type IRON PLUS IRON BINDING CAP Routine 08/05/2024 11:22 AM PASTER HAT LINING Fatigue, unspecified type T3,FREE Routine 08/05/2024 11:22 AM PASTER HAT LINING Fatigue, unspecified type T4,FREE Routine 08/05/2024 11:22 AM PASTER HAT LINING Fatigue, unspecified type TESTOSTERONE,TOTAL Routine 08/05/2024 11 :22 AM PASTER HAT LINING Fatigue, unspecified type TSH Routine 08/05/2024 11:22 AM PASTER HAT LINING Fatigue, unspecified type THYROPEROXIDASE ANTIBODY Routine 08/05/2024 11:22 AM PASTER HAT LINING Fatigue, unspecified type URIC ACID Routine 08/05/2024 11:22 AM PASTER HAT LINING Fatigue, unspecified type VITAMIN B12 Routine 08/05/2024 11:22 AM PASTER HAT LINING Fatigue, unspecified type VITAMIN B6 BLOOD Routine 08/05/2024 11:2 2 AM PASTER HAT LINING Fatigue, unspecified type VITAMIN D 25 (DEFICIENCY) Routine 08/05/2024 11:22 AM PASTER HAT LINING Fatigue, unspecified type DHEA-SULFATE (DHEA-S) Routine 08/05/2024 11:22 AM PASTER HAT LINING Fatigue, unspecified type ESTRADIOL Routine 08/05/2024 11:22 AM PASTER HAT LINING Fatigue, unspecified type PROGESTERONE Routine 08/05/2024 11:22 AM PASTER HAT LINING Fatigue, unspecified type FSH Routine 08/05/2024 11:22 AM PASTER HAT LINING Fatigue, unspecified type from Last 3 Months Results * CBC AND DIFFERENTIAL (08/05/2024 11:34 AM PASTER HAT LINING) WHITE BLOOD CELL COUNT 5.3 3.8 - 10.8 Thousand/u L [facility] (U RED BLOOD CELL COUNT 4.28 3.80 - 5.10 Million/uL [facility] (U HEMOGLOBIN 13.5 11.7 - 15.5 g/dL [facility] (U HEMATOCRIT 40.4 35.0 - 45.0 % [facility] (U MCV 94.4 80.0 - 100.0 fL [facility] (U MCH 31.5 27.0 - 33.0 pg [facility] (U MCHC 33.4 32.0 - 36.0 g/dL [facility] (U Comment: For adults, a slight decrease in the calculated MCHC value (in the range of 30 to 32 g/dL) is most likely not clinically significant; however, it should be interpreted with caution in correlation with other red cell parameters and the patient's clinical condition. RDW 11.6 11.0 - 15.0 % [facility] (U PLATELET COUNT 219 140 - 400 Thousand/u L [facility] (U MPV 9.3 7.5 - 12.5 fL [facility] (U ABSOLUTE NEUTROPHILS 2,740 1,500 - 7,800 cells/uL [facility] (U ABSOLUTE LYMPHOCYTES 1,956 850 - 3,900 cells/uL [facility] (U ABSOLUTE MONOCYTES 504 200 - 950 cells/uL [facility] (U ABSOLUTE EOSINOPHILS 90 15 - 500 cells/uL [facility] (U ABSOLUTE BASOPHILS 11 0 - 200 cells/uL [facility] (U NEUTROPHILS 51.7 % [facility] (U LYMPHOCYTES 36.9 % [facility] (U MONOCYTES 9.5 % [facility] (U EOSINOPHILS 1.7 % [facility] (U BASOPHILS 0.2 % [facility] (U Blood BLOOD SPECIMEN / Unknown 08/05/2024 11:34 AM PASTER HAT LINING 08/05/2024 11:35 AM PASTER HAT LINING Narrative [facility] - 08/05/2024 12:03 PM PASTER HAT LINING SPLIT 08/05/2024 FROM [id number] Rikki Hernandez MD HEMATOLOGY Final R esult Performing Organization Address City/[facility]/ZIP Co de Phone Number [facility] [address] [facility] [place] [address], [facility] ([place] [address] [place] [place] [address] * VITAMIN B6 BLOOD (08/05/2024 11:22 AM PASTER HAT LINING) VITAMIN B6, PLASMA 12.3 2.1 - 21.7 ng/mL [facility] Comment: (Note) Vitamin supplementation within 24 hours prior to blood draw may affect the accuracy of results. This test was developed and its analytical performance characteristics have been determined by [email or web address]. It has not been cleared or approved by the FDA. This assay has been validated pursuant to the CLIA regulations and is used for clinical purposes. MD [facility] [address] [place] [address],[address] [place] [address] Amelia Watson MD, PhD Blood BLOOD SPECIMEN / Unknown 08/05/2024 11:22 AM PASTER HAT LINING 08/05/2024 11:23 AM PASTER HAT LINING Narrative [facility] - 08/08/2024 7:01 PM PASTER HAT LINING MULTIPLE TESTING PRIORITIES; ROUTINE TESTING TO FOLLOW. Rikki Hernandez MD CHEMISTRY Final R esult [facility] [address] [address], [facility] [address] [place] [address], [address] [place] [address] * VITAMIN D 25 (DEFICIENCY) (08/05/2024 11:22 AM PASTER HAT LINING) VITAMIN D,25-OH,TOTAL,IA 47 30 - 100 ng/mL [email or web address] [place] Comment: Vitamin D Status ? 25-OH Vitamin D: Deficiency: ?<20 ng/mL Insufficiency: ? 20 - 29 ng/mL Optimal: ? > or = 30 ng/mL For 25-OH Vitamin D testing on patients on D2-supplementation and patients for whom quantitation of D2 and D3 fractions is required, the QuestAssureD(TM) 25-OH VIT D, (D2,D3), LC/MS/MS is recommended: order code 91160 (patients >2yrs). See Note 1 Note 1 For additional information, please refer to http://education.Apprema.[employer]/faq/UQE319 (This link is being provided for informational/ educational purposes only.) Blood BLOOD SPECIMEN / Unknown 08/05/2024 11:22 AM PASTER HAT LINING 08/05/2024 11:23 AM PASTER HAT LINING Narrative [facility] - 08/06/2024 4:32 AM PASTER HAT LINING MULTIPLE TESTING PRIORITIES; ROUTINE TESTING TO FOLLOW. us Rikki Hernandez MD SEND OUTS Final R esult [employer] [facility] [address] [place] [address], [email or web address] [address] * TSH (08/05/2024 11:22 AM PASTER HAT LINING) [facility] TSH 0.54 mIU/L [email or web address] Comment: ?Reference Range ?> or = 20 Years ??0.40-4.50 ? Ranges ?First trimester ?0.26-2.66 ?Second trimester ?? 0.55-2.73 ?Third trimester ?0.43-2.91 Blood BLOOD SPECIMEN / Unknown 08/05/2024 11:22 AM PASTER HAT LINING 08/05/2024 11:23 AM PASTER HAT LINING Narrative [facility] - 08/06/2024 4:32 AM PASTER HAT LINING MULTIPLE TESTING PRIORITIES; ROUTINE TESTING TO FOLLOW. Rikki Hernandez MD CHEMISTRY Final R esult Performing Organization Address City/State/[facility] Co de Phone Number [employer] [facility] [address] [place] [address], [email or web address] [address] [place] [address] * (ABNORMAL) EBV AB IGG IGM AND EBNA (08/05/2024 11:22 AM PASTER HAT LINING) EBV VIRAL CAPSID AG (VCA) AB (IGM) <36.00 U/mL [facility] [place] Comment: ?U/mL ?Interpretation ?---- ?<36.00 ?Negative ?36.00-43.99 ? Equivocal ?>43.99 ?Positive EBV VIRAL CAPSID AG (VCA) AB (IGG) 102.00(H) U/mL [facility] [place] Comment: ? U/mL ? Interpretation ? ---- ? <18.00 ? Negative ? 18.00-21.99 ?Equivocal ? >21.99 ? Positive EBV NUCLEAR AG (EBNA) AB (IGG) 276.00(H) U/mL [email or web address] Comment: ? U/mL ? Interpretation ? ---- ? <18.00 ? Negative ? 18.00-21.99 ?Equivocal ? >21.99 ? Positive CHINEDU SANCHEZ VIRUS ANTIBODY PANEL INTERPRETATION [email or web address] Comment: Suggestive of a past Chinedu-Sanchez virus infection. In infants, a similar pattern may occur as a result of passive maternal transfer of antibody. Blood BLOOD SPECIMEN / Unknown 08/05/2024 11:22 AM PASTER HAT LINING 08/05/2024 11:23 AM PASTER HAT LINING Narrative [employer] - 08/06/2024 12:30 PM PASTER HAT LINING MULTIPLE TESTING PRIORITIES; ROUTINE TESTING TO FOLLOW. us Rikki Hernandez MD SEND OUTS Final R esult [employer] [facility] [address] [place] [address], [email or web address] [address] * IRON PLUS IRON BINDING CAP (08/05/2024 11:22 AM PASTER HAT LINING) IRON, TOTAL 129 40 - 190 mcg/dL [email or web address] IRON BINDING CAPACITY 317 250 - 450 mcg/dL (calc) [email or web address] % SATURATION 41 16 - 45 % (calc) [email or web address] Blood BLOOD SPECIMEN / Unknown 08/05/2024 11:22 AM PASTER HAT LINING 08/05/2024 11:23 AM PASTER HAT LINING Narrative [facility] - 08/06/2024 6:07 AM PASTER HAT LINING MULTIPLE TESTING PRIORITIES; ROUTINE TESTING TO FOLLOW. Rikki Hernandez MD CHEMISTRY Final R esult Performing Organization Address City/[facility]/ZIP Co de Phone Number [facility] [address] [place] [address], [place] [phone] [facility] [address] [place] [address] * THYROPEROXIDASE ANTIBODY (08/05/2024 11:22 AM PASTER HAT LINING) THYROID PEROXIDASE ANTIBODIES <1 <9 IU/mL [facility] Blood BLOOD SPECIMEN / Unknown 08/05/2024 11:22 AM PASTER HAT LINING 08/05/2024 11:23 AM PASTER HAT LINING Narrative [facility] - 08/06/2024 12:08 PM PASTER HAT LINING MULTIPLE TESTING PRIORITIES; ROUTINE TESTING TO FOLLOW. Rikki Hernandez MD SEND OUTS Final R esult Performing Organization Address [facility] Co de Phone Number [employer] [facility] [address] [place] [address], [place] [phone] [facility] [address] [place] [address] * C-REACTIVE PROTEIN (08/05/2024 11:22 AM PASTER HAT LINING) C-REACTIVE PROTEIN <3.0 <8.0 mg/L [facility] [place] Blood BLOOD SPECIMEN / Unknown 08/05/2024 11:22 AM PASTER HAT LINING 08/05/2024 11:23 AM PASTER HAT LINING Narrative [facility] - 08/06/2024 10:21 AM PASTER HAT LINING MULTIPLE TESTING PRIORITIES; ROUTINE TESTING TO FOLLOW. Rikki Hernandez MD CHEMISTRY Final R esult Performing Organization Address [facility]/ZIP Co de Phone Number [employer] [facility] [address] [place] [address], [place] [phone] [facility] [address] [place] [address] * URIC ACID (08/05/2024 11:22 AM PASTER HAT LINING) URIC ACID 4.1 2.5 - 7.0 mg/dL [facility] Comment: Therapeutic target for gout patients: <6.0 mg/dL ?? Blood BLOOD SPECIMEN / Unknown 08/05/2024 11:22 AM PASTER HAT LINING 08/05/2024 11:23 AM PASTER HAT LINING Narrative [facility] - 08/06/2024 6:07 AM PASTER HAT LINING MULTIPLE TESTING PRIORITIES; ROUTINE TESTING TO FOLLOW. Rikki Hernandez MD CHEMISTRY Final R esult [facility] [address] [place] [address], [place] [phone] [facility] [address] [place] [address] * T3,FREE (08/05/2024 11:22 AM PASTER HAT LINING) T3, FREE 3.3 2.3 - 4.2 pg/mL [facility] Blood BLOOD SPECIMEN / Unknown 08/05/2024 11:22 AM PASTER HAT LINING 08/05/2024 11:23 AM PASTER HAT LINING Narrative [facility] - 08/06/2024 4:32 AM PASTER HAT LINING MULTIPLE TESTING PRIORITIES; ROUTINE TESTING TO FOLLOW. Rikki Hernandez MD CHEMISTRY Final R esult [facility] [address] [place] [address], [place] [phone] [facility] [address] [place] [address] * T4,FREE (08/05/2024 11:22 AM PASTER HAT LINING) T4, FREE 1.3 0.8 - 1.8 ng/dL [facility] Blood BLOOD SPECIMEN / Unknown 08/05/2024 11:22 AM PASTER HAT LINING 08/05/2024 11:23 AM PASTER HAT LINING Narrative [facility] - 08/06/2024 4:32 AM PASTER HAT LINING MULTIPLE TESTING PRIORITIES; ROUTINE TESTING TO FOLLOW. Rikki Hernandez MD CHEMISTRY Final R esult Performing Organization Address City/[facility]/ZIP Co de Phone Number [facility] [address] [place] [address], [facility] [address] [place] [address] * (ABNORMAL) TESTOSTERONE,TOTAL (08/05/2024 11:22 AM PASTER HAT LINING) TESTOSTERONE, TOTAL, MS 51(H) 2 - 45 ng/dL [facility] Comment: For additional information, please refer to https://education.Sportlobster/faq/TotalTestosteroneLCMSMS (This link is being provided for informational/educational purposes only.) (Note) This test was developed and its analytical performance characteristics have been determined by [employer]. It has not been cleared or approved by the FDA. This assay has been validated pursuant to the CLIA regulations and is used for clinical purposes. [facility] [address] [place] [address],[address] [place] [address] Amelia Watson MD, PhD Blood BLOOD SPECIMEN / Unknown 08/05/2024 11:22 AM PASTER HAT LINING 08/05/2024 11:23 AM PASTER HAT LINING Narrative [facility] - 08/08/2024 9:43 PM PASTER HAT LINING MULTIPLE TESTING PRIORITIES; ROUTINE TESTING TO FOLLOW. Rikki Hernandez MD CHEMISTRY Final R esult [facility] [address] [place] [address], [facility] [address] [place] [address], [address] [place] [address] * PROGESTERONE (08/05/2024 11:22 AM PASTER HAT LINING) PROGESTERONE <0.5 ng/mL [facility] [place] Comment: ?Reference Ranges ? Female ?Follicular Phase ? < 1.0 ?Luteal Phase ?2.6-21.5 ?Post menopausal ?< 0.5 ?1st Trimester ? 4.1-34.0 ?2nd Trimester ?24.0-76.0 ?3rd Trimester ?? 52.0-302.0 Blood BLOOD SPECIMEN / Unknown 08/05/2024 11:22 AM PASTER HAT LINING 08/05/2024 11:23 AM PASTER HAT LINING Narrative [facility] - 08/06/2024 4:32 AM PASTER HAT LINING MULTIPLE TESTING PRIORITIES; ROUTINE TESTING TO FOLLOW. us Rikki Hernandez MD SEND OUTS Final R esult [employer] [facility] [address] [place] [address], [email or web address] [address] * HOMOCYSTEINE,TOTAL (08/05/2024 11:22 AM PASTER HAT LINING) HOMOCYSTEINE 6.4 <10.4 umol/L [facility]- soheilakathleen [place] Comment: Homocysteine is increased by functional deficiency of folate or vitamin B12. Testing for methylmalonic acid differentiates between these deficiencies. Other causes of increased homocysteine include renal failure, folate antagonists such as methotrexate and phenytoin, and exposure to nitrous oxide. Zion Díaz et al., Nettie Principal Quality Engineer Med. 1999;131(5):331-9. Blood BLOOD SPECIMEN / Unknown 08/05/2024 11:22 AM PASTER HAT LINING 08/05/2024 11:23 AM PASTER HAT LINING Narrative [facility] - 08/06/2024 4:32 PM PASTER HAT LINING MULTIPLE TESTING PRIORITIES; ROUTINE TESTING TO FOLLOW. Rikki Hernandez MD CHEMISTRY Final R esult Performing Organization Address [facility] de Phone Number [facility] [address] [facility] [place] [place] [address], [facility] [address] [facility] [place] [address] * FSH (08/05/2024 11:22 AM PASTER HAT LINING) FSH 5.2 mIU/mL [email or web address] inessa [place] Comment: ?Reference Range ? Follicular Phase ? 2.5-10.2 ? Mid-cycle Peak ? 3.1-17.7 ? Luteal Phase ? 1.5- 9.1 ? Postmenopausal ? 23.0-116.3 ? Blood BLOOD SPECIMEN / Unknown 08/05/2024 11:22 AM PASTER HAT LINING 08/05/2024 11:23 AM PASTER HAT LINING Narrative [facility] - 08/06/2024 4:32 AM PASTER HAT LINING MULTIPLE TESTING PRIORITIES; ROUTINE TESTING TO FOLLOW. Rikki Hernandez MD CHEMISTRY Final R esult Performing Organization Address [facility]/ZIP Co de Phone Number [facility] [address] [place] [address], [facility] [address] [place] [address] * FERRITIN (08/05/2024 11:22 AM PASTER HAT LINING) FERRITIN 49 16 - 154 ng/mL [facility] [place] Blood BLOOD SPECIMEN / Unknown 08/05/2024 11:22 AM PASTER HAT LINING 08/05/2024 11:23 AM PASTER HAT LINING Narrative [facility] - 08/06/2024 4:32 AM PASTER HAT LINING MULTIPLE TESTING PRIORITIES; ROUTINE TESTING TO FOLLOW. Rikki Hernandez MD CHEMISTRY Final R esult [employer] [facility] [address] [place] [address], [email or web address] [address] [place] [address] * ESTRADIOL (08/05/2024 11:22 AM PASTER HAT LINING) ESTRADIOL 103 pg/mL [facility] [place] Comment: ?Reference Range ?Follicular Phase: ?19-144 ?Mid-Cycle: ? 64-357 ?Luteal Phase: ?56-214 ?Postmenopausal: ?< or = 31 ? Reference range established on post-pubertal patient population. No pre-pubertal reference range established using this assay. For any patients for whom low Estradiol levels are anticipated (e.g. males, pre-pubertal children and hypogonadal/post-menopausal females), the [email or web address] Estradiol, Ultrasensitive, LCMSMS assay is recommended (order code [id number]). ?? Please note: patients being treated with the drug fulvestrant (Faslodex(R)) have demonstrated significant interference in immunoassay methods for estradiol measurement. The cross reactivity could lead to falsely elevated estradiol test results leading to an inappropriate clinical assessment of estrogen status. [email or web address] order code [id number], Ultrasensitive LC/MS/MS demonstrates negligible cross reactivity with fulvestrant. Blood BLOOD SPECIMEN / Unknown 08/05/2024 11:22 AM PASTER HAT LINING 08/05/2024 11:23 AM PASTER HAT LINING Narrative [facility] - 08/06/2024 5:44 AM PASTER HAT LINING MULTIPLE TESTING PRIORITIES; ROUTINE TESTING TO FOLLOW. Rikki Hernandez MD SEND OUTS Final R esult Performing Organization Address City/[facility]/ZIP Co de Phone Number [employer] [facility] [address] [place] [phone], [facility] [address] [place] [address] * DHEA-SULFATE (DHEA-S) (08/05/2024 11:22 AM PASTER HAT LINING) DHEA SULFATE 178 19 - 237 mcg/dL [facility] Blood BLOOD SPECIMEN / Unknown 08/05/2024 11:22 AM PASTER HAT LINING 08/05/2024 11:23 AM PASTER HAT LINING Narrative [facility] - 08/06/2024 4:32 AM PASTER HAT LINING MULTIPLE TESTING PRIORITIES; ROUTINE TESTING TO FOLLOW. Rikki Hernandez MD SEND OUTS Final R esult Performing Organization Address [facility] Co de Phone Number [employer] [facility] [address] [place] [address], [facility] [address] [place] [address] * VITAMIN B12 (08/05/2024 11:22 AM PASTER HAT LINING) VITAMIN B12 401 200 - 1,100 pg/mL [facility] Blood BLOOD SPECIMEN / Unknown 08/05/2024 11:22 AM PASTER HAT LINING 08/05/2024 11:23 AM PASTER HAT LINING Narrative [facility] - 08/06/2024 4:32 AM PASTER HAT LINING MULTIPLE TESTING PRIORITIES; ROUTINE TESTING TO FOLLOW. Rikki Hernandez MD CHEMISTRY Final R esult Performing Organization Address City/[facility]/ZIP Co de Phone Number [employer] [facility] [address] [place] [address], [facility] [address] [place] [address] * COMP METABOLIC PANEL (08/05/2024 11:22 AM PASTER HAT LINING) [facility] GLUCOSE 81 65 - 99 mg/dL [facility] Comment: ? Fasting reference interval UREA NITROGEN (BUN) 13 7 - 25 mg/dL [facility] CREATININE 0.75 0.50 - 0.97 [...] BLOOD SPECIMEN / Unknown 08/05/2024 11:22 AM PASTER HAT LINING 08/05/2024 11:23 AM PASTER HAT LINING Narrative [facility] - 08/06/2024 6:07 AM PASTER HAT LINING MULTIPLE TESTING PRIORITIES; ROUTINE TESTING TO FOLLOW. us Rikki Hernandez MD CHEMISTRY Final R esult [facility] [address] [place] [address], [facility] [address] [place] [address] from Last 3 Months Insurance [facility] Care Teams Shampoo Technician Relationship Specialty [place] [address] [place] [address] PCP - General Internal Medicine 03/19/24
--- OUTSIDE RECORDS SUMMARY | 2024-08-28 02:36 | XMS_ITS | Encounter Summary ---
Author Organization [employer] [facility] Address [place], [place] [address] Care Team Providers Care Anvil Worker Name Role Phone Catie Cosme MD Primary Care Provider [phone] Encounter Details Date Type Department Care Team (Latest Contact Info) Description 08/05/2024 Travel Social History Tobacco Use Types Packs/Day Years Used Date Smoking Tobacco: Never Smokeless Tobacco: Never Alcohol Use Standard Drinks/Week Comments Not Currently 0 (1 standard drink = 0.6 oz pur e alcohol) [facility] Utilities Answer Date Recorded Do you have [...] (Late Contact Info) Description 10/14/2024 10:00 AM AIRPORT GUIDE Telemedicine [facility] [address] [place] [phone] Rikki Hernandez MD [address] [place] [phone] documented as of this encounter Visit Diagnoses Not on filedocumented in this encounter Care Teams Anvil Worker Relationship Specialty [place] [address] [place] [phone] PCP - General Internal Medicine 03/19/24 documented as of this encounter
--- OUTSIDE RECORDS SUMMARY | 2024-08-28 02:36 | XMS_ITS | Clinical Summary ---
Author Organization [facility] Address [address] , [address] [place] [address] Phone Care Team Providers Care Interceptor Operator Name Role [facility] Unavailable Unava ilable Conditions or Problems Problem Name Problem Code Onset Date Status Entry Date Provider Comment Standard Description Annotate Low ferritin R79.0 (ICD-10-CM) Active Juan David Mckeon MD Abnormal level of blood mineral Palpitations 12746086 (SNOMED CT) Active Juan David Mckeon MD Palpitations Dysautonomia 61804165 (SNOMED CT) Active Juan David Mckeon MD Disorder of autonomic nervous system Cervicogenic headache 065279655 (SNOMED CT) Active Juan David Mckeon MD Cervicogenic headache Paresthesia 52505541 (SNOMED CT) Active Juan David Mckeon MD Paresthesia Medications No information available. Medications Administered No information available. 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 Replaced Document: (P) LYME DISEASE AB W/REFL TO BLOT (IGG, IGM), FERRITIN FERRITIN 48 ng/mL 16-154 N Ferritin [Mass/volume] in Serum or Plasma LYME DIS AB * Borrelia burgdorferi.VlsE1+pe pC10 Ab [Units/volume] in Serum by Immunoassay Internal Other: Authorizatio n - OBS [email or web address] Yes Authoriza tion: Release of Information - Authorize [facility] - Payment and Healthcare Operations ROIAUTHOTHER Yes Authoriz ation: Release of Information - Authorize Others/Insurance - Payment and Healthcare Operations HIECONSENT Yes Consent To Release information to the Health Information Exchange (HIE) [email or web address] Yes Authorizat ion: Authorization for [facility] to leave messages, voicemail, send text messages, send emails AUTHRELHCARE Yes Authoriz ation: Release/Retrieval of Information to/from Healthcare Facilities, Pharmacy Benefit Payers and Providers [email or web address] Yes Authoriz ation: Notice of privacy practices AUTHBENEFIT Yes Authoriza tion: Assignment of Benefits and Payment Agreement Plan of Care Type Date Detail Pending [...] Bod y Mass Index (Ratio) BP Diastolic 81 mm[Hg] blood pressu re, diastolic, second observation BP Diastolic 77 mm[Hg] blood pressu re, diastolic BP Systolic 119 mm[Hg] blood pressur e, [...]
--- OUTSIDE RECORDS SUMMARY | 2024-08-28 02:36 | XMS_ITS | Encounter Summary ---
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 Name Role Phone Catie Cosme MD Primary Care Provider [phone] Reason for Visit * Reason Comments Consult Telehealth Fatigue, Sleep issue s, POTS Encounter Details Date Type Department Care Team (Late st Contact Info) Description 07/02/2024 10:00 AM CDT Telemedicine [address] [place] [phone] Rikki Hernandez MD [address] [place] [address] [address] [place] [phone] Consult; Telehealth (Fatigue, Sleep issues, POTS) Social History Tobacco Use Types Packs/Day Years Used Date Smoking Tobacco: Never Smokeless Tobacco: Never Tobacco Cessation:Counseling Given: Not Answered Alcohol Use Standard Drinks/Week Comments Not Currently 0 (1 standard drink = 0.6 oz pur e alcohol) [facility] Utilities Answer Date Recorded Do you have [...] on file documented as of this encounter Patient Instructions * Patient Instructions* Rikki Hernandez MD - 07/02/2024 10:00 AM CDT Images from the original note were not included. There is a lot of information below. I provide this to give you more options to help your health but do not expect you to fulfill all these goals immediately. However with improvement of the following parameters, health will improve as well. POTS POTS Strategies Exercise -- Many are physically deconditioned and aerobic exercise improves outcomes. The calf is second heart . Leg exercises can improve blood flow to the brain and reduce venous pooling which is when the blood collects in her lower legs causing more dizziness. Start with 2 or 3 squats a day and increase as tolerated from there. Abdominal exercises such as core strengthening can also reduce venous pooling and improve blood flow to the brain. Yoga can be great for this. A recumbent bicycle, rowing machine, or swimming pool are good options to exercise without standing. Lower leg strength training will also reduce venous pooling. Supervised training may be needed. Initially engage 3-4 times per week for 30 to 40 minutes per session. Exercise intensity should aimfor 70 to 75 percent of maximal predicted heart rate. (Do not get too hung up on the numbers but just remember to get some exercise done.) As fitness improves, gradually to increase the duration, intensity, and frequency of exercise and advance to exercising in the upright posture. Among 103 patients who completed a program of ioep-mh-zxypvsjf intensity progressive endurance training, 71 percent went into remission and no longer met the diagnostic criteria for POTS. Lifestyle management -- Encourage patients to be upright as much as possible during the day and to avoid prolonged bedrest,which can lead to further deconditioning. Manage catastrophizing, anxiety, and functional disability with counseling and cognitive behavioraltherapy. Develop physical habits to reduce triggering symptoms. Example: lower extremity muscle tensing, leg crossing, and weight shifting engage the skeletal muscle pump to improve venous return and can provide immediate temporary symptom relief. Improve sleep quality by having a consistent bedtime and wake time. Compressive garments --Waist-high stockings at 30 to 40 mmHg or abdominal binders at 10 mmHg ameliorate lower extremity and splanchnic venous pooling, respectively, but higher pressures do not provide further benefit. Although fashionable, compression stockings can be uncomfortable to wear. An abdominal binder is better tolerated. Compression of the abdomen may be more beneficial in reducing venous pooling than compression of the legs because of the higher venous capacitance of the splanchnic mesenteric bed, which is the largest of the body's venous reservoirs, accounting for one-third of the total blood volume. Brain and nerve stimulation Biofeedback DNRS (Dynamic Neural Retraining System) FEFT or Faster EFT (Emotional [place] [facility] Technique/tapping) Vagus nerve stimulation Positioning and other physical tricks Lying on your back, legs straight up a wall for dizzy spells Tilt your bed for general POTS wellbeing Heel lifts to increase circulation & prevent blood pooling The 'Arm Counter Pressure' move to prevent fainting - ClusterFlunk Wooden Egg - 99% effective Splashing cold water on the face or plunging hands/wrists in cold water (reduces heart rate/anxiety) PROGNOSIS Most patients with POTS improve with treatment or spontaneously. In one prospective study, orthostatic symptoms improved at one year follow-up in most patients, andmore than one-third no longer met tilt-table criteria for POTS. However, POTS is a chronic condition, and many patients may be subject to occasional flares or recurrences of orthostatic symptoms. In a survey of 502 patients with POTS at a mean of 5.4 years after diagnosis, 19 % reported complete resolution of symptoms, 51 % reported persistent but improved symptoms, and 16 % reported intermittent continued symptoms. POTS does NOT increase the risk of mortality () Nutrition: General guidelines for dietary changes for POTS symptoms include: Increase sodium in your diet from 3,000 milligrams (mg) to 10,000 mg per day. Drink 2 to 2.5 liters per day of fluids. Water is the best choice. Eat small and frequent meals instead of a few large meals. Eating a diet with high fiber and complex carbohydrates may help reduce blood glucose (sugar) spikes and lessen POTS symptoms. Keep your nutrition balanced with protein, vegetables, dairy and fruits. Add more beans for protein! Choose beneficial salty snacks such as broth, pickles, olives, sardines, anchovies and nuts. Don???t over-rely on snack chips and crackers for salt. Plan grocery store shopping using a list to make sure you greens picker healthy food choices and POTS care (hydration and salty supplements). If you have low stamina, have someone help you shop and carry and put away your groceries. Fiber with every meal. An example would be berries for breakfast, a salad for lunch, and vegetableswith dinner. BEANS Build a Better You! One serving (1/2 cup cooked) of beans = 7 grams of protein = 1 ounce of meat Beans and legumes keep you anderson, longer because they are so rich in fiber. Animal sources have no fiber at all. High in antioxidants. One serving per day lowers LDL cholesterol. Systemic Review of 26 studies: beans/legumes lower LDL and are linked to higher HDL. Four servings per week reduces the risk of heart disease and colon cancer. Plant protein in general = beans, peas, nuts, seeds, soy and 100% whole grains protects against ALLchronic disease. Beans contain a substance called spermadine which is associated with longevity. Reduces blood pressure and inflammation FIGHT Diabetes as they reduce blood sugar/glucose levels SR of 41 studies: can lower fasting blood sugar, insulin, and HbA1c levels. RESOURCES Beans 101: Cheap, Nutritious, and Super Healthy ([employer].Soompi) Academy Of Nutrition And Dietetics: www.Eatright.Org [place] Heart Association: www.Heart.Org [place] Diabetes Association: www.Diabetes.Org Nutrition Facts: www.Nutritionfacts.Org Anti-Inflammatory Diet https://www.[employer].org - cultural based recipes / meal urban and regional planner = $25 enrollment [employer] NUTRITION Lifestyle Medicine: Eating whole plant foods is a great way to get in more nutrition with less harm and is one of the best ways to prevent, treat and even reverse many chronic diseases. EAT MORE EAT LESS Vegetables Sugary drinks = soda, juice,energy drinks Mushrooms Processed meats = sausage, cain, Fruits Processed snacks: crackers, chips, pretzels Legumes Cakes, pastries, sweets Whole Grains Dairy (especially high-fat types) Nuts Red meats Seeds Poultry Eggs SEE WEBSITES NutritionFacts.org - Evidence based information on medical conditions and benefits of whole food plant based nutrition HopeLab - plant forward plates = $25 enrollment SupportPay - Anti-Inflammatory Diet information Mind & Spirit: I recommend daily mind-body relaxation techniques. An easy, free option is 4 - 7 - 8 breathing to be performed at least twice daily. Daily breath work can improve vagal tone and has been shown to reduce anxiety and depression in clinical trials using fMRI studies. It is also helpful to return to sleep if you awaken at night. It can also rebalance a dysfunctional nervous system and improve parasympathetic tone. Download the [employer] Timer maria isabel. It is a free option with many mind relaxation techniques. GOAL: 60 seconds/day of a mind relaxation technique. Timeframe should be gradually expanded to improve mindset and general health. 4-7-8 Breathing: helps to immediately turn off the fight of flight response and engage the relaxation response. Take a deep, slow breath from your belly, and silently count to 4 as you breathe in Hold your breath, and silently count to 7 Breathe out completely as you silently count to 8 Repeat 4 times or until you feel calm I recommend doing this twice daily for more long term care pharmacist benefits. You can watch Dr. Leonid Rodriguez demonstrate this technique by following this link - 47-8 Breathing Instructions For sleep: Repeat 478 breathing for 5 minutes Also consider using the physiological sigh which has evidence of improving anxiety in real-time. Per [facility] studies using fMRI, this also has been shown in studies to improve anxiety, depression and irritability if practiced daily for 3 months. See the following link: Physiological sigh Another consideration is taking a pause between taking her next breath or space breathing , which can help narrow the mind's focus and reduce anxiety and rumination of thoughts. NSDR, Meditation and Breathwork Non-sleep deep rest, or NSDR, is an umbrella term for a variety of practices that guide your brain and body into a state of deep relaxation without falling asleep completely. Yoga nidra (also called yogic sleep) is a more specific practice, typically involving a body scan or guided meditation whilelying down. Meditation is a practice that can foster an emotionally calm and clear state. Focused meditations involve specific attention on your breath, body, or a mental visualization, in contrast to open monitoring (or ???mindfulness?? ) meditation, where the aim is to allow thoughts to come and go without attachment. Hypnosis is more similar to meditation than what???s portrayed in movies -- hypnosis has shown to be an effective way to self-direct the mind to relaxed and self-aware states. Breathwork is a compelling illustration of the mind-body connection, where conscious control of thebreath (e.g., through physiological sighs) can influence your mental state, reducing feelings of stress and anxiety. These practices are zero-cost, accessible to beginners, and don???t require a lot of time -- even amorning meditation or yoga nidra practice as short as 10 minutes can have positive effects on energy levels and cognitive performance. Embracing these practices can lead to improved sleep, improved cognition and mental health, and overall well-being. We are happy to offer two zero-cost NSDR protocols, available in two durations: 10 minutes and 20 minutes. Sleep: IMPORTANCE OF SLEEP Sleep is the single most effective thing we can do to reset our brain and our body If we are deprived of sleep for 20 days we - like food REM and Non-REM sleep are equally important Less than 7 hours per night and we are 3X more likely to catch a common cold virus One night of poor sleep drops our natural killer cells / cancer fighting cells by 70% Sleep restocks the weaponry in our immune arsenal. -Pato Flynn PhD Sleep Hygiene: Keep a consistent sleep schedule = even on weekends. This reinforces your body's sleep cycle (your internal clock), which can make it easier for you to fall asleep and wake up every day which may also help reduce daytime sleepiness. Manage to get 7 to 8 hours of sleep each night. Create a relaxing bedtime routine -- and stick with it daily. Start your routine is about 30 to 60 minutes before you go to bed. Bedtime rituals are effective in sleep disturbances from diverse causes as they allow for psychological preparation for rest and sleep. Sample activities include dusk simulation (dim the lighting), try a relaxing bath, brief meditation, breathing exercises, soothing warm tea (Camomile). Turn off electronic devices before you go to sleep. They emit blue light, which can reduce the melatonin levels in your body. Exercise regularly - 30 minutes of aerobic exercise per day can improve your sleep quality. Avoid exercising within an hour or two of your bedtime (except yoga) Exposure to natural light helps regulate your sleep cycle. Morning sunlight can set your internal clock to a better sleep / wake cycle or circadian rhythm. Try to get 10-15 minutes every morning. Daytime sun exposure also helps create better biorhythms. Limit your caffeine intake (lasts 3 to 7 hours after you drink it) Make your sleep environment work for you. Blackout curtains or an eye mask may help A cool, dark, quiet room between 60??F and 67??F (15.6??C and 19.4??C) White noise or earplugs may help drown out noise Use your bed only for sleep and intimacy - NO working, talking on the phone, watching TV, or other activities. Go to bed only when you're tired If you don't fall asleep within 20 minutes of going to bed, get up. Not being able to fall asleep may cause you to become frustrated, which can keep you awake even longer. Once you get out of bed, dosomething to help you unwind, like reading on the couch, until you're tired enough to go back to bed. Do NOT engage with your phone or screens as the light can stimulate you and create more difficulty getting back to sleep. Limit napping to 20-30 minutes - or avoid it if you can Napping during the day may make it harder to fall asleep later and may make you more prone to waking up during the night. Manage stress before going to bed Movement: COLD SHOWER Endings with 1-2 minute goals. Continue CHOPing Supplements: Use magnesium glycinate 200- 300 mg nightly which can improve sleep, digestion, immune function andneurologic function. Magnesium is responsible for over 300 enzymatic reactions in the body. Start ashwaganda at 300 to 600 mg before bedtime. Ashwagandha is best known for its anxiolytic (anti-anxiety) and improving symptoms of stress and its comorbidities (fatigue, temporary cognitive impairment, etc.) as well as biomarkers such as cortisol. For this reason do not take it upon awakening as we need cortisol to start the day. A growing body of evidence supports the efficacy of ashwagandha for improving total sleep time and sleep quality in people with and without insomnia. Research studies also indicate power output was moderately increased. Consider adding CoQ 10 or ubiquinol 300 mg daily can improve energy, metabolic function and reduce inflammation. Consider starting creatine 2 g daily. Creatine works mainly through its effects on energy metabolism. Adenosine triphosphate (ATP) is a molecule that carries energy within cells and is the main fuel source for high-intensity exercise. When cells use ATP for energy, this molecule is converted into adenosine diphosphate (ADP) and adenosine monophosphate (AMP). Creatine exists in cells in the form of creatine phosphate (or phosphocreatine), which donates a high-energy phosphate group to ADP, thus turning this molecule back into ATP. See the following link for evidence-based studies on supplements https://examine.com/ Standard Labs: As ordered ~Please call the [facility] where you would like to have your labs drawn to schedule an appointment ~Important Note: Please be sure to stop any supplements containing Biotin (Vitamin B7) 12 hours prior to your lab draw as this can impact accuracy of your labs results. Biotin is commonly found in multivitamins and hair support supplements. Please check labels of your supplements for biotin if you are not sure. If you are taking >100 mg/day, please notify your provider before having your labs drawn. ~Important note about your [facility] lab results: If lab or imaging tests have been ordered for you by your provider through [facility], you will receivethe results via your [employer]) account if you have one. Results are automatically released to your Arrayit (NEBOTRADE) account once available. This means that you may see your results before your provider has had a chance to review them. After the results become available, comments from your provider are typically posted to your Arrayit (NEBOTRADE) account within 2-5 business days. If you do not have an [employer]) account, results typically arrive by mail within 1-2 weeks. Follow-up: Virtual appointment with me on 10/14/2024 at 10 AM You can schedule a follow-up online through NEBOTRADE or call [phone] -NEBOTRADE messages are meant to address simple follow-up questions from the a previous visit within the last 7 days. If your question is complex or about something new, please wait to discuss this until your next scheduled appointment, or you may be billed for your provider's time required to respond to the message -Be aware that any medical messages you send become a permanent part of your medical record and that anyone on your care team can see these messages -Please allow up to 3 business days to respond to messages -If you have urgent concerns, please contact your primary care provider or seek urgent or emergent care -If you need to send outside records to the clinic, please use the following information: To send medical records via email please use the following address: [email or web address] You do not have to reach out to medical records before sending information. Please only use this address for medical records only. Responses will not be made. To mail medical records please use this address: [email or web address].com [facility] [employer] and [address] [address]; . For additional assistance, you can call Locately at [phone] or visit this websitefor additional information: [email or web address] SUPPLEMENT SAVVY More and more research shows supplements and botanicals have many benefits for health if used properly. Purchasing supplements is daunting at times. Xhr-vxe-mlekv trials have shown that up to 50% of products on the market do not have labeled contents present or contain contaminants such as heavy metals, pollutants, or medications. Please review the following as a guide to help you choose wisely when choosing supplements. Look for supplements or botanicals with the NSF, MCFP, or Taskdoer certification symbol. These organizations review supplemental products for quality, purity, potency, performance, and consistency - and FDA current good manufacturing practices. DO NOT PURCHASE herbal medications or supplements from ClusterFlunk. Although cheaper, the quality and content has been found to be a risk. Buy direct from the nurse examiner when possible to ensure quality product. Buying off Meetingsbooker.com is not recommended due to the potential for counterfeit labeling. Do not buy ???Proprietary Blends?? as they do not list specific amounts of ingredients present. Trusted Consumer Brands are available through our Carolyn [employer] Full Scripts website below or elsewhere online Geri Herbs - Pure Encapsulations - [facility] - [facility] EuroPharms - Nature Made - Momentus -Knowable - Herb Pharm - New Chapter Natarajan - Solaray - NOW Foods do not have the above symbols, but have been used successfully in many patients and cost less. Supplement Ordering Most vitamins and supplements recommended can be purchased online by setting up an account through the [facility] Zipnosis on an online supplement purchasing platform called KDPOF (Previouslyset up under [employer]).This allows you to purchase verified, professional quality supplements froma variety of high quality brands at 25% off the retail funk. Follow this link to set up your account through KDPOF: [email or web address] Enter your information Click on Create my Account There will not be specific practitioner recommendations on the account, instead you will search forthe supplements recommended during your visit by brand/name For additional support: Phone - [phone] Chat with KDPOF directly via the website Email at: [email or web address] Helpful patient How-To videos: How to use Everplaces *KDPOF does have an Maria Isabel that can be downloaded through the maria isabel store for the easiest access tosupplement ordering. ~If a supplement is not available on KDPOF, other sources may include: www.vitacost.Soompi or www.staila technologiess.Soompi documented in this encounter Progress Notes * Rikki Hernandez MD - 07/02/2024 10:00 AM CDT Images from the original note were not included. VIRTUAL VISIT Virtual Visit: As the provider for this virtual visit, I attest that I introduced myself to the patient, provided my credentials, disclosed my location, and determined that, based on a review of the patients chart and/or a discussion with members of the patient's treatment team, telemedicine via a r eal-time, two-way, interactive audio and video platform is an appropriate and effective means of providing this service. The patient and I mutually agree that this visit is appropriate for telemedicine as well. Originating site (patient location city/state): [place], [place] Provider location (distant site city/state): [place] Video start time (include am/pm designation): 10 AM Video end time (include am/pm designation): 11:24 AM Total time preparing to see this patient, ojxi-xy-gerv time, and coordinating care time on the [facility] date: 110 minutes. HPI: Yomaira Ford is a 34 y.o. female who presents today for an Integrative Medicine Consult with chief concerns of Consult and Telehealth (Fatigue, Sleep issues, POTS) Patient was referred by self for the following CONCERNS: POTS symptoms ongoing for 10+ years but became severe in December 2022. Tests: normal echo, EKG, Holter,Many MRI of head and spine, tilt table was not done. She has been improving through exercise, diet,and on Loestrin which stopped menses. She is still struggling with getting back to baseline. Propanolol is helping with palpitations, tremor and headaches although she had difficulty starting at the i nitial dose. She is also starting the [facility] program for nervous system training and using the POTS Exercise Program--[facility] ([facility]) She began experiencing unexplained symptoms about a decade ago, following the of her children. These included fainting spells, rapid heartbeat, and numbness on the left side of her face and arm. In 2016, she suffered a miscarriage and experienced severe symptoms at work, which she described asfeeling like her kidneys were constantly releasing adrenaline. This led to weeks of poor sleep and dizziness. These symptoms subsided during her third , but she had to take progesterone suppl ements to support her due to low hormone levels. After giving to her third child, she experienced sudden tachycardia, sweating, and breathlessness at work. Despite extensive testing, including a month-long Holter monitor, echocardiogram, and blood work, no abnormalities were found. She continued to experience fainting spells, rapid heartbeat, and low energy for about a month, after which the symptoms disappeared. However, they returned in 2019 after receiving the COVID-19 vaccine. She also had a similar reaction to a tetanus shot in the past. She had an episode of chest pressure, heaviness in her arms, legs, and head, and tunnel vision at work, which led to her being taken to the ER. She had a normal evaluation yet she continued to experience these symptoms, which left her bedbound for two weeks. She alsodeveloped light sensitivity, tremors, and a restless leg feeling throughout her body. She was diagnosed with dysautonomia and POTS by a installation drafter in [place]. 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 She started taking control pills after her third child, which helped regulate her menstrual cycle. However, when she stopped taking them, she experienced irregular and heavy periods, pelvic pain, and other symptoms. She was put back on control pills, which helped regulate her menstrual cycle. In addition, since December 2022 her sleep and fatigue have been disruptive. See details below regardingsleep. Lab review: Low hemoglobin. Autoimmune testing negative. : no cycles now but has breakthrough bleeding. Hot flashes are regular. She mentions pelvic pain in her questionnaire but not fully discussed at this visit. Digestion: No GERD but has had intermittent nausea. History of IBS - on the diarrhea side. Fried food. Nutrition: 3 meals per day choosing high protein options. Usually a small lunch and afternoon snack. Whole foods over packaged foods. High sugar and processed foods cause heart racing and neuro symptoms FLUIDS: Water: Hydrating - gatorlyte hydrates well with over 100 ounces of water per day. Also drinks a licorice tea daily. Coffee: Yes -3 caffeinated beverages per day. HABITS: Daily vegetables, greens and fruit. Otherwise not fully assessed. PROTEIN Not assessed due to time restrictions. DAIRY Not assessed due to time restrictions. Sleep: Averages 8 hours per night but has trouble falling asleep and staying asleep. No snoring or sleep study history. 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 Dream: more vivid dreams since propanolol Naps: every day afternoon. Movement: Biking, rower and strength training 5 or more days per week. 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 Lives with:, 3 kids- ages 13-10-7 , Local Family/ Support: is wonderful but always at work. Kids are helpful but also a ton of work. My family is more drain than support. ???s family are wonderful and highly supportive but live in another state. They do come stay with us to help out at times. Pets: 2 dogs, 3 cats, fish, many plants Environmental: Amalgam fillings. 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 of sister when she was 7. Sources: 06/10 health. 04/10 social. 12/09 family. Coping: Breathing exercises, guided meditation and journaling Deedee:Sewing, jose, reading, a movie and couch snuggle with the family. , Before I loved to gardenand ride my bike every day. I want to be able to enjoy the outdoors again. Substance use: ETOH: no Tob/Vape:no THC/CBD:no Spirituality: Formerly Protestant and struggles to except spirituality MSQ: 07/01/2024 1:03 PM MSQ Date Completed 07/01/2024 Head Total 13 Eyes Total 12 Ears Total 3 Nose Total 17 Mouth/Throat Total 5 Skin Total 11 Heart Total 7 Lungs Total 9 Digestive Tract Total 13 Joints/Muscle Total 8 Weight Total 5 Energy/Activity Total 7 Mind Total 22 Emotions Total 11 Grand Total 149 ROS: Review of Systems negative except what is noted in HPI Problem List: There is no problem list on file for this patient. PMH: No past medical history on file. Surgical History: No past surgical history on file. Family History: No family history on file. 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 propranoloL (INDERAL) 10 mg tablet Take 10 mg by mouth. No current facility-administered medications for this visit. Medications have been reviewed by me and are current to the best of my knowledge and ability. Physical Exam: No No Vitals: Virtual Visit GEN: well appearing, no acute distress HEENT: normocephalic, atraumatic; extraocular movements intact CV: appears warm and well-perfused PULM: easy work of breathing NEURO: alert and orient, conversant PSYCH: affect normal SKIN: no rash or lesion on visualized skin Reviewed available historical records and labs regarding medical history and recent care. Assessment and Plan ICD-10-CM 1. Dizziness R42 2. Palpitations R00.2 3. Sleep disturbance G47.9 4. Fatigue, unspecified type R53.83 EBV AB IGG IGM AND EBNA CBC AND DIFFERENTIAL COMP METABOLIC PANEL C-REACTIVE PROTEIN HOMOCYSTEINE,TOTAL FERRITIN IRON PLUS IRON BINDING CAP T3,FREE T4,FREE TESTOSTERONE,TOTAL TSH THYROPEROXIDASE ANTIBODY URIC ACID VITAMIN B12 VITAMIN B6 BLOOD (QUEST) VITAMIN D 25 (DEFICIENCY) DHEA-SULFATE (DHEA-S) ESTRADIOL PROGESTERONE FSH 5. Digestive symptoms R19.8 Assessment & Plan 1/. Dysautonomia with secondary symptoms of dizziness and palpitations. Her symptoms suggest a possible dysautonomia, with her nervous system responding adversely to stimuli. This could be due to an immune stimulus or stress. Her normal MRI and cardiac testing are reassuring. The use of propranolol appears to have mitigated the disruption to her nervous system, at least regarding palpitations and headaches. However, her hormonal system is currently imbalanced, necessitating medication. Her heart rate variability issues indicate poor heart regulation, which may be linked to other nervous system dysfunctions. Her main symptoms include sleep disturbances and fatigue. She also experiences postprandial low cortisol in the mid-afternoon, which is normal but more extreme in her case. Stress: She will continue the [facility] neurosensory reprocessing and CHOPS exercise program. Inaddition she was advised to practice the 4-7-8 breathing technique and/or physiological sigh to help regulate her sympathetic and parasympathetic nervous systems. NSDR or nonsleep deep rest practicesalso discussed. Supplements: Magnesium glycinate 200 to 300 mg nightly was recommended for sleep, digestion, immunefunction, and nervous system support. Ashwagandha 300 to 600 mg nightly was suggested for its potential benefits in immune regulation, thyroid function, hormonal function, and sleep. She was also advised to consider adding CoQ10 and creatine to her regimen. Nutrition:A dietary plan was provided, emphasizing the importance of hydration, protein, and fiber.She was also advised to avoid processed meat and consider taking a 5 g pill of salt supplements to help with her POTS symptoms. 3. Sleep disturbances. She reports significant sleep disturbances, including insomnia and vivid dreams. Melatonin was usedsparingly due to its strong effects. Magnesium glycinate and ashwaganda was recommended to aid sleep. She was advised to practice non-sleep deep rest techniques to help with fatigue and improve dopamine levels. Sleep hygiene practices based on the book Why We Sleep by Pato Flynn were recommended. 4. Fatigue. Her fatigue is likely related to her dysautonomia and sleep disturbances. She was advised to continue her exercise program, including the [facility] program for POTS, and to practice non-sleep deep rest techniques. A dietary plan emphasizing hydration, protein, and fiber was provided. She was also advised to consider adding CoQ10 to her regimen for mitochondrial support. 5. Gastrointestinal issues. She reports IBS-like symptoms with a tendency towards diarrhea. Magnesium glycinate was recommendedas it is less likely to disrupt digestion. A dietary plan emphasizing fiber with every meal was provided to support her microbiome. This can be further discussed at her next appointment. Patient Instructions There is a lot of information below. I provide this to give you more options to help your health but do not expect you to fulfill all these goals immediately. However with improvement of the following parameters, health will improve as well. POTS POTS Strategies Exercise -- Many are physically deconditioned and aerobic exercise improves outcomes. The calf is second heart . Leg exercises can improve blood flow to the brain and reduce venous pooling which is when the blood collects in her lower legs causing more dizziness. Start with 2 or 3 squats a day and increase as tolerated from there. Abdominal exercises such as core strengthening can also reduce venous pooling and improve blood flow to the brain. Yoga can be great for this. A recumbent bicycle, rowing machine, or swimming pool are good options to exercise without standing. Lower leg strength training will also reduce venous pooling. Supervised training may be needed. Initially engage 3-4 times per week for 30 to 40 minutes per session. Exercise intensity should aimfor 70 to 75 percent of maximal predicted heart rate. (Do not get too hung up on the numbers but just remember to get some exercise done.) As fitness improves, gradually to increase the duration, intensity, and frequency of exercise and advance to exercising in the upright posture. Among 103 patients who completed a program of [id number] intensity progressive endurance training, 71 percent went into remission and no longer met the diagnostic criteria for POTS. Lifestyle management -- Encourage patients to be upright as much as possible during the day and to avoid prolonged bedrest,which can lead to further deconditioning. Manage catastrophizing, anxiety, and functional disability with counseling and cognitive behavioraltherapy. Develop physical habits to reduce triggering symptoms. Example: lower extremity muscle tensing, leg crossing, and weight shifting engage the skeletal muscle pump to improve venous return and can provide immediate temporary symptom relief. Improve sleep quality by having a consistent bedtime and wake time. Compressive garments --Waist-high stockings at 30 to 40 mmHg or abdominal binders at 10 mmHg ameliorate lower extremity and splanchnic venous pooling, respectively, but higher pressures do not provide further benefit. Although fashionable, compression stockings can be uncomfortable to wear. An abdominal binder is better tolerated. Compression of the abdomen may be more beneficial in reducing venous pooling than compression of the legs because of the higher venous capacitance of the splanchnic mesenteric bed, which is the largest of the body's venous reservoirs, accounting for one-third of the total blood volume. Brain and nerve stimulation Biofeedback DNRS (Dynamic Neural Retraining System) FEFT or Faster EFT (Emotional [place] [facility] Technique/tapping) Vagus nerve stimulation Positioning and other physical tricks Lying on your back, legs straight up a wall for dizzy spells Tilt your bed for general POTS wellbeing Heel lifts to increase circulation & prevent blood pooling The 'Arm Counter Pressure' move to prevent fainting - [place] [employer] - 99% effective Splashing cold water on the face or plunging hands/wrists in cold water (reduces heart rate/anxiety) PROGNOSIS Most patients with POTS improve with treatment or spontaneously. In one prospective study, orthostatic symptoms improved at one year follow-up in most patients, andmore than one-third no longer met tilt-table criteria for POTS. However, POTS is a chronic condition, and many patients may be subject to occasional flares or recurrences of orthostatic symptoms. In a survey of 502 patients with POTS at a mean of 5.4 years after diagnosis, 19 % reported complete resolution of symptoms, 51 % reported persistent but improved symptoms, and 16 % reported intermittent continued symptoms. POTS does NOT increase the risk of mortality () Nutrition: General guidelines for dietary changes for POTS symptoms include: Increase sodium in your diet from 3,000 milligrams (mg) to 10,000 mg per day. Drink 2 to 2.5 liters per day of fluids. Water is the best choice. Eat small and frequent meals instead of a few large meals. Eating a diet with high fiber and complex carbohydrates may help reduce blood glucose (sugar) spikes and lessen POTS symptoms. Keep your nutrition balanced with protein, vegetables, dairy and fruits. Add more beans for protein! Choose beneficial salty snacks such as broth, pickles, olives, sardines, anchovies and nuts. Don???t over-rely on snack chips and crackers for salt. Plan grocery store shopping using a list to make sure you greens picker healthy food choices and POTS care (hydration and salty supplements). If you have low stamina, have someone help you shop and carry and put away your groceries. Fiber with every meal. An example would be berries for breakfast, a salad for lunch, and vegetableswith dinner. BEANS Build a Better You! One serving (1/2 cup cooked) of beans = 7 grams of protein = 1 ounce of meat Beans and legumes keep you anderson, longer because they are so rich in fiber. Animal sources have no fiber at all. High in antioxidants. One serving per day lowers LDL cholesterol. Systemic Review of 26 studies: beans/legumes lower LDL and are linked to higher HDL. Four servings per week reduces the risk of heart disease and colon cancer. Plant protein in general = beans, peas, nuts, seeds, soy and 100% whole grains protects against ALLchronic disease. Beans contain a substance called spermadine which is associated with longevity. Reduces blood pressure and inflammation FIGHT Diabetes as they reduce blood sugar/glucose levels SR of 41 studies: can lower fasting blood sugar, insulin, and HbA1c levels. RESOURCES Beans 101: Cheap, Nutritious, and Super Healthy (Rated People) Academy Of Nutrition And Dietetics: www.Eatright.Org [place] Heart Association: www.Heart.Org [place] Diabetes Association: www.Diabetes.Org Nutrition Facts: www.Nutritionfacts.Org Anti-Inflammatory Diet https://www.[employer] - cultural based recipes / meal urban and regional planner = $25 enrollment [employer] NUTRITION Lifestyle Medicine: Eating whole plant foods is a great way to get in more nutrition with less harm and is one of the best ways to prevent, treat and even reverse many chronic diseases. EAT MORE EAT LESS Vegetables Sugary drinks = soda, juice,energy drinks Mushrooms Processed meats = sausage, cain, Fruits Processed snacks: crackers, chips, pretzels Legumes Cakes, pastries, sweets Whole Grains Dairy (especially high-fat types) Nuts Red meats Seeds Poultry Eggs SEE WEBSITES NutritionFacts.org - Evidence based information on medical conditions and benefits of whole food plant based nutrition [employer] - plant forward plates = $25 enrollment [employer] - Anti-Inflammatory Diet information Mind & Spirit: I recommend daily mind-body relaxation techniques. An easy, free option is 4 - 7 - 8 breathing to be performed at least twice daily. Daily breath work can improve vagal tone and has been shown to reduce anxiety and depression in clinical trials using fMRI studies. It is also helpful to return to sleep if you awaken at night. It can also rebalance a dysfunctional nervous system and improve parasympathetic tone. Download the [employer] Timer maria isabel. It is a free option with many mind relaxation techniques. GOAL: 60 seconds/day of a mind relaxation technique. Timeframe should be gradually expanded to improve mindset and general health. 4-7-8 Breathing: helps to immediately turn off the fight of flight response and engage the relaxation response. Take a deep, slow breath from your belly, and silently count to 4 as you breathe in Hold your breath, and silently count to 7 Breathe out completely as you silently count to 8 Repeat 4 times or until you feel calm I recommend doing this twice daily for more fpc benefits. You can watch Dr. Leonid Rodriguez demonstrate this technique by following this link - 8 Breathing Instructions For sleep: Repeat 478 breathing for 5 minutes Also consider using the physiological sigh which has evidence of improving anxiety in real-time. Per [facility] studies using fMRI, this also has been shown in studies to improve anxiety, depression and irritability if practiced daily for 3 months. See the following link: Physiological sigh Another consideration is taking a pause between taking her next breath or space breathing , which can help narrow the mind's focus and reduce anxiety and rumination of thoughts. NSDR, Meditation and Breathwork Non-sleep deep rest, or NSDR, is an umbrella term for a variety of practices that guide your brain and body into a state of deep relaxation without falling asleep completely. Yoga nidra (also called yogic sleep) is a more specific practice, typically involving a body scan or guided meditation whilelying down. Meditation is a practice that can foster an emotionally calm and clear state. Focused meditations involve specific attention on your breath, body, or a mental visualization, in contrast to open monitoring (or ???mindfulness?? ) meditation, where the aim is to allow thoughts to come and go without attachment. Hypnosis is more similar to meditation than what???s portrayed in movies -- hypnosis has shown to be an effective way to self-direct the mind to relaxed and self-aware states. Breathwork is a compelling illustration of the mind-body connection, where conscious control of thebreath (e.g., through physiological sighs) can influence your mental state, reducing feelings of stress and anxiety. These practices are zero-cost, accessible to beginners, and don???t require a lot of time -- even amorning meditation or yoga nidra practice as short as 10 minutes can have positive effects on energy levels and cognitive performance. Embracing these practices can lead to improved sleep, improved cognition and mental health, and overall well-being. We are happy to offer two zero-cost NSDR protocols, available in two durations: 10 minutes and 20 minutes. Sleep: IMPORTANCE OF SLEEP Sleep is the single most effective thing we can do to reset our brain and our body If we are deprived of sleep for 20 days we - like food REM and Non-REM sleep are equally important Less than 7 hours per night and we are 3X more likely to catch a common cold virus One night of poor sleep drops our natural killer cells / cancer fighting cells by 70% Sleep restocks the weaponry in our immune arsenal. -Pato Flynn PhD Sleep Hygiene: Keep a consistent sleep schedule = even on weekends. This reinforces your body's sleep cycle (your internal clock), which can make it easier for you to fall asleep and wake up every day which may also help reduce daytime sleepiness. Manage to get 7 to 8 hours of sleep each night. Create a relaxing bedtime routine -- and stick with it daily. Start your routine is about 30 to 60 minutes before you go to bed. Bedtime rituals are effective in sleep disturbances from diverse causes as they allow for psychological preparation for rest and sleep. Sample activities include dusk simulation (dim the lighting), try a relaxing bath, brief meditation, breathing exercises, soothing warm tea (Camomile). Turn off electronic devices before you go to sleep. They emit blue light, which can reduce the melatonin levels in your body. Exercise regularly - 30 minutes of aerobic exercise per day can improve your sleep quality. Avoid exercising within an hour or two of your bedtime (except yoga) Exposure to natural light helps regulate your sleep cycle. Morning sunlight can set your internal clock to a better sleep / wake cycle or circadian rhythm. Try to get 10-15 minutes every morning. Daytime sun exposure also helps create better biorhythms. Limit your caffeine intake (lasts 3 to 7 hours after you drink it) Make your sleep environment work for you. Blackout curtains or an eye mask may help A cool, dark, quiet room between 60??F and 67??F (15.6??C and 19.4??C) White noise or earplugs may help drown out noise Use your bed only for sleep and intimacy - NO working, talking on the phone, watching TV, or other activities. Go to bed only when you're tired If you don't fall asleep within 20 minutes of going to bed, get up. Not being able to fall asleep may cause you to become frustrated, which can keep you awake even longer. Once you get out of bed, dosomething to help you unwind, like reading on the couch, until you're tired enough to go back to bed. Do NOT engage with your phone or screens as the light can stimulate you and create more difficulty getting back to sleep. Limit napping to 20-30 minutes - or avoid it if you can Napping during the day may make it harder to fall asleep later and may make you more prone to waking up during the night. Manage stress before going to bed Movement: COLD SHOWER Endings with 1-2 minute goals. Continue CHOPing Supplements: Use magnesium glycinate 200- 300 mg nightly which can improve sleep, digestion, immune function andneurologic function. Magnesium is responsible for over 300 enzymatic reactions in the body. Start ashwaganda at 300 to 600 mg before bedtime. Ashwagandha is best known for its anxiolytic (anti-anxiety) and improving symptoms of stress and its comorbidities (fatigue, temporary cognitive impairment, etc.) as well as biomarkers such as cortisol. For this reason do not take it upon awakening as we need cortisol to start the day. A growing body of evidence supports the efficacy of ashwagandha for improving total sleep time and sleep quality in people with and without insomnia. Research studies also indicate power output was moderately increased. Consider adding CoQ 10 or ubiquinol 300 mg daily can improve energy, metabolic function and reduce inflammation. Consider starting creatine 2 g daily. Creatine works mainly through its effects on energy metabolism. Adenosine triphosphate (ATP) is a molecule that carries energy within cells and is the main fuel source for high-intensity exercise. When cells use ATP for energy, this molecule is converted into adenosine diphosphate (ADP) and adenosine monophosphate (AMP). Creatine exists in cells in the form of creatine phosphate (or phosphocreatine), which donates a high-energy phosphate group to ADP, thus turning this molecule back into ATP. See the following link for evidence-based studies on supplements https://[employer]com/ Standard Labs: As ordered ~Please call the [facility] where you would like to have your labs drawn to schedule an appointment ~Important Note: Please be sure to stop any supplements containing Biotin (Vitamin B7) 12 hours prior to your lab draw as this can impact accuracy of your labs results. Biotin is commonly found in multivitamins and hair support supplements. Please check labels of your supplements for biotin if you are not sure. If you are taking >100 mg/day, please notify your provider before having your labs drawn. ~Important note about your [facility] lab results: If lab or imaging tests have been ordered for you by your provider through [facility], you will receivethe results via your [employer]) account if you have one. Results are automatically released to your [employer] [facility]) account once available. This means that you may see your results before your provider has had a chance to review them. After the results become available, comments from your provider are typically posted to your [employer] [facility]) account within 2-5 business days. If you do not have an [employer] [facility]) account, results typically arrive by mail within 1-2 weeks. Follow-up: Virtual appointment with me on 10/14/2024 at 10 AM You can schedule a follow-up online through [facility] or call [phone] -[facility] messages are meant to address simple follow-up questions from the a previous visit within the last 7 days. If your question is complex or about something new, please wait to discuss this until your next scheduled appointment, or you may be billed for your provider's time required to respond to the message -Be aware that any medical messages you send become a permanent part of your medical record and that anyone on your care team can see these messages -Please allow up to 3 business days to respond to messages -If you have urgent concerns, please contact your primary care provider or seek urgent or emergent care -If you need to send outside records to the clinic, please use the following information: To send medical records via email please use the following address: [email or web address] You do not have to reach out to medical records before sending information. Please only use this address for medical records only. Responses will not be made. To mail medical records please use this address: [email or web address] [facility] and [address] [address]; . For additional assistance, you can call Locately at [phone] or visit this websitefor additional information: [email or web address] SUPPLEMENT SAVVY More and more research shows supplements and botanicals have many benefits for health if used properly. Purchasing supplements is daunting at times. Epm-tnq-gfbrs trials have shown that up to 50% of products on the market do not have labeled contents present or contain contaminants such as heavy metals, pollutants, or medications. Please review the following as a guide to help you choose wisely when choosing supplements. Look for supplements or botanicals with the NSF, MCFP, or Taskdoer certification symbol. These organizations review supplemental products for quality, purity, potency, performance, and consistency - and FDA current good manufacturing practices. DO NOT PURCHASE herbal medications or supplements from [place]. Although cheaper, the quality and content has been found to be a risk. Buy direct from the nurse examiner when possible to ensure quality product. Buying off Amazon is not recommended due to the potential for counterfeit labeling. Do not buy ???Proprietary Blends?? as they do not list specific amounts of ingredients present. Trusted Consumer Brands are available through our BioDetego Full Scripts website below or elsewhere online Geri Herbs - Pure Encapsulations - Moses - Ortho Molecular EuroPharma - Nature Made - Momentus -Garden of Life [place] Naturals - Herb Pharm - New Chapter Natarajan - Solaray - NOW Foods do not have the above symbols, but have been used successfully in many patients and cost less. Supplement Ordering Most vitamins and supplements recommended can be purchased online by setting up an account through the Carolyn Zipnosis on an online supplement purchasing platform called KDPOF (Previouslyset up under ScanScout).This allows you to purchase verified, professional quality supplements froma variety of high quality brands at 25% off the retail funk. Follow this link to set up your account through KDPOF: [email or web address] Enter your information Click on Create my Account There will not be specific practitioner recommendations on the account, instead you will search forthe supplements recommended during your visit by brand/name For additional support: Phone - [phone] Chat with KDPOF directly via the website Email at: [email or web address] Helpful patient How-To videos: How to use Everplaces *KDPOF does have an Maria Isabel that can be downloaded through the amria isabel store for the easiest access tosupplement ordering. ~If a supplement is not available on KDPOF, other sources may include: www.vitacost.Soompi or www.LoopPayvitamins.Soompi Rikki Hernandez MD Future Appointments Date Time Provider Department Center 10/14/2024 10:00 AM Rikki Hernandez MD [facility] Rikki Hernandez MD, DipABLM, DipABOIM documented in this encounter Nursing Notes * OctoberPadilla LPN - 07/02/2024 10:00 AM CDT Patient reported vitals: Height: 5'9 Weight: 165 lbs Purpose of the call (i.e. confirm ready for VV and do initial review) CA has verified that patient is currently in the [facility] at time of the visit yes Confirm yes Confirm allergies yes Confirm medical history yes Menses information for women yes Confirm medication yes Confirm pharmacy yes Confirm the phone number they will be at if the provider is running late and we need to call them. yes Let them know that if they are more than 15 minutes late the appointment will need to be rescheduled yes No Vitals taken-Virtual visit Padilla Bustillo LPN .................... 07/02/2024 9:52 AM documented in this encounter Miscellaneous Notes * Pre-Visit Planning - Reyna Dobson LPN - 07/02/2024 10:00 AM CDT [facility] Welcome letter sent via Appsindep. Reyna Dobson LPN .................... 07/01/2024 12:02 PM documented in this encounter Plan of Treatment Upcoming Encounters Date Type Department Care Team (Late st Contact Info) Description 10/14/2024 10:00 AM TEST DATA DEVELOPER Telemedicine [address] [place] [address] Rikki Hernandez MD [address] [place] [address] [place] Padilla [address] documented as of this encounter Results * CBC AND DIFFERENTIAL (08/05/2024 11:34 AM TEST DATA DEVELOPER) WHITE BLOOD CELL COUNT 5.3 3.8 - 10.8 Thousand/u L [facility] (U RED BLOOD CELL COUNT 4.28 3.80 - 5.10 Million/uL [facility] (U HEMOGLOBIN 13.5 11.7 - 15.5 g/dL [facility] (U HEMATOCRIT 40.4 35.0 - 45.0 % [facility] (U MCV 94.4 80.0 - 100.0 fL [facility] (U MCH 31.5 27.0 - 33.0 pg [facility] (U MCHC 33.4 32.0 - 36.0 g/dL [facility] (U Comment: For adults, a slight decrease in the calculated MCHC value (in the range of 30 to 32 g/dL) is most likely not clinically significant; however, it should be interpreted with caution in correlation with other red cell parameters and the patient's clinical condition. RDW 11.6 11.0 - 15.0 % [facility] (U PLATELET COUNT 219 140 - 400 Thousand/u L [facility] (U MPV 9.3 7.5 - 12.5 fL [facility] (U ABSOLUTE NEUTROPHILS 2,740 1,500 - 7,800 cells/uL [facility] (U ABSOLUTE LYMPHOCYTES 1,956 850 - 3,900 cells/uL [facility] (U ABSOLUTE MONOCYTES 504 200 - 950 cells/uL [facility] (U ABSOLUTE EOSINOPHILS 90 15 - 500 cells/uL [facility] (U ABSOLUTE BASOPHILS 11 0 - 200 cells/uL [facility] (U NEUTROPHILS 51.7 % [facility] (U LYMPHOCYTES 36.9 % [facility] (U MONOCYTES 9.5 % [facility] (U EOSINOPHILS 1.7 % [facility] (U BASOPHILS 0.2 % [facility] (U Blood BLOOD SPECIMEN / Unknown 08/05/2024 11:34 AM TEST DATA DEVELOPER 08/05/2024 11:35 AM TEST DATA DEVELOPER Narrative [facility] - 08/05/2024 12:03 PM TEST DATA DEVELOPER SPLIT 08/05/2024 FROM [id number] Rikki Hernandez MD HEMATOLOGY Final R esult Performing Organization Address [facility] de Phone Number [facility] [address] [facility] [place] [address], [facility] ([place] [address] [facility] [place] [address] * FSH (08/05/2024 11:22 AM TEST DATA DEVELOPER) FSH 5.2 mIU/mL [facility] inessa [facility] Comment: ?Reference Range ? Follicular Phase ? 2.5-10.2 ? Mid-cycle Peak ? 3.1-17.7 ? Luteal Phase ? 1.5- 9.1 ? Postmenopausal ? 23.0-116.3 ? Blood BLOOD SPECIMEN / Unknown 08/05/2024 11:22 AM TEST DATA DEVELOPER 08/05/2024 11:23 AM TEST DATA DEVELOPER Narrative [facility] - 08/06/2024 4:32 AM TEST DATA DEVELOPER MULTIPLE TESTING PRIORITIES; ROUTINE TESTING TO FOLLOW. Rikki Hernandez MD CHEMISTRY Final R esult Performing Organization Address City/[facility]/ZIP Co de Phone Number [facility] [address] [place] [address], [facility] [address] [facility] [place] [address] * PROGESTERONE (08/05/2024 11:22 AM TEST DATA DEVELOPER) PROGESTERONE <0.5 ng/mL [facility] in[facility] Comment: ?Reference Ranges ? Female ?Follicular Phase ? < 1.0 ?Luteal Phase ?2.6-21.5 ?Post menopausal ?< 0.5 ?1st Trimester ? 4.1-34.0 ?2nd Trimester ?24.0-76.0 ?3rd Trimester ?? 52.0-302.0 Blood BLOOD SPECIMEN / Unknown 08/05/2024 11:22 AM TEST DATA DEVELOPER 08/05/2024 11:23 AM TEST DATA DEVELOPER Narrative [facility] - 08/06/2024 4:32 AM TEST DATA DEVELOPER MULTIPLE TESTING PRIORITIES; ROUTINE TESTING TO FOLLOW. Rikki Hernandez MD SEND OUTS Final R esult [facility] [address] [place] [address], [facility] [address] [place] [address] * ESTRADIOL (08/05/2024 11:22 AM TEST DATA DEVELOPER) ESTRADIOL 103 pg/mL [facility]jit [facility] Comment: ?Reference Range ?Follicular Phase: ?19-144 ?Mid-Cycle: ? 64-357 ?Luteal Phase: ?56-214 ?Postmenopausal: ?< or = 31 ? Reference range established on post-pubertal patient population. No pre-pubertal reference range established using this assay. For any patients for whom low Estradiol levels are anticipated (e.g. males, pre-pubertal children and hypogonadal/post-menopausal females), the [facility] Estradiol, Ultrasensitive, LCMSMS assay is recommended (order code [id number]). ?? Please note: patients being treated with the drug fulvestrant (Faslodex(R)) have demonstrated significant interference in immunoassay methods for estradiol measurement. The cross reactivity could lead to falsely elevated estradiol test results leading to an inappropriate clinical assessment of estrogen status. [facility] order code [id number], Ultrasensitive LC/MS/MS demonstrates negligible cross reactivity with fulvestrant. Blood BLOOD SPECIMEN / Unknown 08/05/2024 11:22 AM TEST DATA DEVELOPER 08/05/2024 11:23 AM TEST DATA DEVELOPER Narrative [facility] - 08/06/2024 5:44 AM TEST DATA DEVELOPER MULTIPLE TESTING PRIORITIES; ROUTINE TESTING TO FOLLOW. Rikki Hernandez MD SEND OUTS Final R esult Performing Organization Address [facility]/ZIP Co de Phone Number Mobio [facility] [address] [place] [address], [facility] [address] [place] [address] * DHEA-SULFATE (DHEA-S) (08/05/2024 11:22 AM TEST DATA DEVELOPER) DHEA SULFATE 178 19 - 237 mcg/dL [facility] Blood BLOOD SPECIMEN / Unknown 08/05/2024 11:22 AM TEST DATA DEVELOPER 08/05/2024 11:23 AM TEST DATA DEVELOPER Narrative [facility] - 08/06/2024 4:32 AM TEST DATA DEVELOPER MULTIPLE TESTING PRIORITIES; ROUTINE TESTING TO FOLLOW. us Rikki Hernandez MD SEND OUTS Final R esult Performing Organization Address City/[facility]/ZIP Co de Phone Number [facility] [address] [place] [address], [place] [phone] [facility] [address] [place] [address] * VITAMIN D 25 (DEFICIENCY) (08/05/2024 11:22 AM TEST DATA DEVELOPER) Pathologist [facility] VITAMIN D,25-OH,TOTAL,IA 47 30 - 100 ng/mL [facility] inessa Layne Comment: Vitamin D Status ? 25-OH Vitamin D: Deficiency: ?<20 ng/mL Insufficiency: ? 20 - 29 ng/mL Optimal: ? > or = 30 ng/mL For 25-OH Vitamin D testing on patients on D2-supplementation and patients for whom quantitation of D2 and D3 fractions is required, the QuestAssureD(TM) 25-OH VIT D, (D2,D3), LC/MS/MS is recommended: order code [id number] (patients >2yrs). See Note 1 Note 1 For additional information, please refer to http://education.Nautilus Solar Energy/faq/QKN538 (This link is being provided for informational/ educational purposes only.) Blood BLOOD SPECIMEN / Unknown 08/05/2024 11:22 AM TEST DATA DEVELOPER 08/05/2024 11:23 AM TEST DATA DEVELOPER Narrative [facility] - 08/06/2024 4:32 AM TEST DATA DEVELOPER MULTIPLE TESTING PRIORITIES; ROUTINE TESTING TO FOLLOW. us Rikki Hernandez MD SEND OUTS Final R esult [facility] [address] [place] [address], [facility] [address] [place] [address] * VITAMIN B6 BLOOD (08/05/2024 11:22 AM TEST DATA DEVELOPER) Pathologist [facility] VITAMIN B6, PLASMA 12.3 2.1 - 21.7 ng/mL [facility] Comment: (Note) Vitamin supplementation within 24 hours prior to blood draw may affect the accuracy of results. This test was developed and its analytical performance characteristics have been determined by [facility]. It has not been cleared or approved by the FDA. This assay has been validated pursuant to the CLIA regulations and is used for clinical purposes. MD [facility] [address] [facility] [address] [place] [address] Amelia Watson MD, PhD Blood BLOOD SPECIMEN / Unknown 08/05/2024 11:22 AM TEST DATA DEVELOPER 08/05/2024 11:23 AM TEST DATA DEVELOPER Narrative [facility] - 08/08/2024 7:01 PM TEST DATA DEVELOPER MULTIPLE TESTING PRIORITIES; ROUTINE TESTING TO FOLLOW. Rikki Hernandez MD CHEMISTRY Final R esult [facility] [address] [place] [address], [facility] [address] [place] [address], [address] [place] [address] * VITAMIN B12 (08/05/2024 11:22 AM TEST DATA DEVELOPER) VITAMIN B12 401 200 - 1,100 pg/mL [facility] Blood BLOOD SPECIMEN / Unknown 08/05/2024 11:22 AM TEST DATA DEVELOPER 08/05/2024 11:23 AM TEST DATA DEVELOPER Narrative [facility] - 08/06/2024 4:32 AM TEST DATA DEVELOPER MULTIPLE TESTING PRIORITIES; ROUTINE TESTING TO FOLLOW. Rikki Hernandez MD CHEMISTRY Final R esult [facility] [address] [place] [address], [facility] [address] [place] [address] * URIC ACID (08/05/2024 11:22 AM TEST DATA DEVELOPER) URIC ACID 4.1 2.5 - 7.0 mg/dL [facility] Comment: Therapeutic target for gout patients: <6.0 mg/dL ?? Blood BLOOD SPECIMEN / Unknown 08/05/2024 11:22 AM TEST DATA DEVELOPER 08/05/2024 11:23 AM TEST DATA DEVELOPER Narrative [facility] - 08/06/2024 6:07 AM TEST DATA DEVELOPER MULTIPLE TESTING PRIORITIES; ROUTINE TESTING TO FOLLOW. Rikki Hernandez MD CHEMISTRY Final R [facility] Performing Organization Address [facility]/ZIP Co de Phone Number Mob[facility] [address] [place] [address], [facility] [address] [place] [address] * THYROPEROXIDASE ANTIBODY (08/05/2024 11:22 AM TEST DATA DEVELOPER) THYROID PEROXIDASE ANTIBODIES <1 <9 IU/mL [facility] kathleen Cardosoe Blood BLOOD SPECIMEN / Unknown 08/05/2024 11:22 AM TEST DATA DEVELOPER 08/05/2024 11:23 AM TEST DATA DEVELOPER Narrative [facility] - 08/06/2024 12:08 PM TEST DATA DEVELOPER MULTIPLE TESTING PRIORITIES; ROUTINE TESTING TO FOLLOW. Rikki Hernandez MD SEND OUTS Final R esun[facility] Performing Organization Address [facility]/ZIP Co de Phone Number [facility] [address] [place] [address], [facility] [address] [place] [address] * TSH (08/05/2024 11:22 AM TEST DATA DEVELOPER) TSH 0.54 mIU/L [facility] Comment: ?Reference Range ?> or = 20 Years ??0.40-4.50 ? Ranges ?First trimester ?0.26-2.66 ?Second trimester ?? 0.55-2.73 ?Third trimester ?0.43-2.91 Blood BLOOD SPECIMEN / Unknown 08/05/2024 11:22 AM TEST DATA DEVELOPER 08/05/2024 11:23 AM TEST DATA DEVELOPER Narrative [facility] - 08/06/2024 4:32 AM TEST DATA DEVELOPER MULTIPLE TESTING PRIORITIES; ROUTINE TESTING TO FOLLOW. Rikki Hernandez MD CHEMISTRY Final R esult [facility] [address] [place] [address], [facility] [address] [place] [address] * (ABNORMAL) TESTOSTERONE,TOTAL (08/05/2024 11:22 AM TEST DATA DEVELOPER) [facility] TESTOSTERONE, TOTAL, MS 51(H) 2 - 45 ng/dL [facility] Comment: For additional information, please refer to https://education.[employer]/faq/TotalTestosteroneLCMSMS (This link is being provided for informational/educational purposes only.) (Note) This test was developed and its analytical performance characteristics have been determined by [employer]. It has not been cleared or approved by the FDA. This assay has been validated pursuant to the CLIA regulations and is used for clinical purposes. [facility] [address] [place] [address],[address] [place] [id number] Amelia Watson MD, PhD Blood BLOOD SPECIMEN / Unknown 08/05/2024 11:22 AM TEST DATA DEVELOPER 08/05/2024 11:23 AM TEST DATA DEVELOPER Narrative [facility] - 08/08/2024 9:43 PM TEST DATA DEVELOPER MULTIPLE TESTING PRIORITIES; ROUTINE TESTING TO FOLLOW. Rikki Hernandez MD CHEMISTRY Final R esult [facility] [address] [place] [address], [facility] [address] [place] [address], [address] [place] [address] * T4,FREE (08/05/2024 11:22 AM TEST DATA DEVELOPER) T4, FREE 1.3 0.8 - 1.8 ng/dL [facility] Blood BLOOD SPECIMEN / Unknown 08/05/2024 11:22 AM TEST DATA DEVELOPER 08/05/2024 11:23 AM TEST DATA DEVELOPER Narrative [facility] - 08/06/2024 4:32 AM TEST DATA DEVELOPER MULTIPLE TESTING PRIORITIES; ROUTINE TESTING TO FOLLOW. Rikki Hernandez MD CHEMISTRY Final R esult [facility] [address] [place] [address], [facility] [address] [place] [address] * T3,FREE (08/05/2024 11:22 AM TEST DATA DEVELOPER) T3, FREE 3.3 2.3 - 4.2 pg/mL [facility] Blood BLOOD SPECIMEN / Unknown 08/05/2024 11:22 AM TEST DATA DEVELOPER 08/05/2024 11:23 AM TEST DATA DEVELOPER Narrative [facility] - 08/06/2024 4:32 AM TEST DATA DEVELOPER MULTIPLE TESTING PRIORITIES; ROUTINE TESTING TO FOLLOW. Rikki Hernandez MD CHEMISTRY Final R esult [facility] [address] [place] [address], [place] [phone] [facility] [address] [place] [address] * IRON PLUS IRON BINDING CAP (08/05/2024 11:22 AM TEST DATA DEVELOPER) IRON, TOTAL 129 40 - 190 mcg/dL [facility] IRON BINDING CAPACITY 317 250 - 450 mcg/dL (calc) [facility] % SATURATION 41 16 - 45 % (calc) [facility] Blood BLOOD SPECIMEN / Unknown 08/05/2024 11:22 AM TEST DATA DEVELOPER 08/05/2024 11:23 AM TEST DATA DEVELOPER Narrative [facility] - 08/06/2024 6:07 AM TEST DATA DEVELOPER MULTIPLE TESTING PRIORITIES; ROUTINE TESTING TO FOLLOW. Rikki Hernandez MD CHEMISTRY Final R esult Performing Organization Address [facility]/ZIP Co de Phone Number [facility] [address] [place] [address], [facility] [address] [place] [address] * FERRITIN (08/05/2024 11:22 AM TEST DATA DEVELOPER) FERRITIN 49 16 - 154 ng/mL [facility] Blood BLOOD SPECIMEN / Unknown 08/05/2024 11:22 AM TEST DATA DEVELOPER 08/05/2024 11:23 AM TEST DATA DEVELOPER Narrative [facility] - 08/06/2024 4:32 AM TEST DATA DEVELOPER MULTIPLE TESTING PRIORITIES; ROUTINE TESTING TO FOLLOW. Rikki Hernandez MD CHEMISTRY Final R esult Performing Organization Address [facility] de Phone Number [facility] [address] [place] [address], [facility] [address] [place] [address] * HOMOCYSTEINE,TOTAL (08/05/2024 11:22 AM TEST DATA DEVELOPER) HOMOCYSTEINE 6.4 <10.4 umol/L [facility] Comment: Homocysteine is increased by functional deficiency of folate or vitamin B12. Testing for methylmalonic acid differentiates between these deficiencies. Other causes of increased homocysteine include renal failure, folate antagonists such as methotrexate and phenytoin, and exposure to nitrous oxide. Zion Díaz, et al., Nettie Seismograph Operator Helper Med. 1999;131(5):331-9. Blood BLOOD SPECIMEN / Unknown 08/05/2024 11:22 AM TEST DATA DEVELOPER 08/05/2024 11:23 AM TEST DATA DEVELOPER Narrative [facility] - 08/06/2024 4:32 PM TEST DATA DEVELOPER MULTIPLE TESTING PRIORITIES; ROUTINE TESTING TO FOLLOW. Rikki Hernandez MD CHEMISTRY Final R esult Performing Organization Address [facility]/ZIP Co de Phone Number [facility] [address] [place] [address], [facility] [address] [place] [address] * C-REACTIVE PROTEIN (08/05/2024 11:22 AM TEST DATA DEVELOPER) C-REACTIVE PROTEIN <3.0 <8.0 mg/L [facility] Blood BLOOD SPECIMEN / Unknown 08/05/2024 11:22 AM TEST DATA DEVELOPER 08/05/2024 11:23 AM TEST DATA DEVELOPER Narrative [facility] - 08/06/2024 10:21 AM TEST DATA DEVELOPER MULTIPLE TESTING PRIORITIES; ROUTINE TESTING TO FOLLOW. Rikki Hernandez MD CHEMISTRY Final R esult Performing Organization Address [facility] Co de Phone Number [facility] [address] [place] [phone], [facility] [address] [place] [address] * COMP METABOLIC PANEL (08/05/2024 11:22 AM TEST DATA DEVELOPER) GLUCOSE 81 65 - 99 mg/dL [facility] Comment: ? Fasting reference interval [...] BLOOD SPECIMEN / Unknown 08/05/2024 11:22 AM TEST DATA DEVELOPER 08/05/2024 11:23 AM TEST DATA DEVELOPER Narrative [facility] - 08/06/2024 6:07 AM TEST DATA DEVELOPER MULTIPLE TESTING PRIORITIES; ROUTINE TESTING TO FOLLOW. Rikki Hernandez MD CHEMISTRY Final R esult [facility] [address] [place] [address], [facility] [address] [place] [address] * (ABNORMAL) EBV AB IGG IGM AND EBNA (08/05/2024 11:22 AM TEST DATA DEVELOPER) EBV VIRAL CAPSID AG (VCA) AB (IGM) <36.00 U/mL [facility] Comment: ?U/mL ?Interpretation ?---- ?<36.00 ?Negative ?36.00-43.99 ? Equivocal ?>43.99 ?Positive EBV VIRAL CAPSID AG (VCA) AB (IGG) 102.00(H) U/mL [facility] inessa Layne Comment: ? U/mL ? Interpretation ? ---- ? <18.00 ? Negative ? 18.00-21.99 ?Equivocal ? >21.99 ? Positive EBV NUCLEAR AG (EBNA) AB (IGG) 276.00(H) U/mL [facility] inessa Layne Comment: ? U/mL ? Interpretation ? ---- ? <18.00 ? Negative ? 18.00-21.99 ?Equivocal ? >21.99 ? 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 In infants, a similar pattern may occur as a result of passive maternal transfer of antibody. Blood BLOOD SPECIMEN / Unknown 08/05/2024 11:22 AM TEST DATA DEVELOPER 08/05/2024 11:23 AM TEST DATA DEVELOPER Narrative [facility] - 08/06/2024 12:30 PM TEST DATA DEVELOPER MULTIPLE TESTING PRIORITIES; ROUTINE TESTING TO FOLLOW. us Rikki Hernandez MD SEND OUTS Final R esult [facility] [address] [place] [address], [facility] [address] [place] [address] documented in this encounter Visit Diagnoses Diagnosis Dizziness- Primary Dizziness and giddiness Palpitations Sleep disturbance Sleep disturbance, unspecified Fatigue, unspecified type Digestive symptoms Other symptoms involving digestive system Fatigue, unspecified type documented in this encounter Care Teams Cement Breaker Relationship Specialty [place] [address] [place] [phone] PCP - General Internal Medicine 03/19/24 documented as of this encounter
--- OUTSIDE RECORDS SUMMARY | 2024-08-28 02:36 | XMS_ITS | Encounter Summary ---
Author Organization [employer] [facility] Address [place], [place] [address] Care Team Providers Care Machine Scallop Cutter Name Role Phone Catie Cosme MD Primary Care Provider [phone] Reason for Visit * Reason Comments Lab Encounter Details Date Type Department Care Team (Late st Contact Info) Description 08/05/2024 10:20 AM COLOR MAKING SUPERVISOR Orders Only [facility] [id number] [place] [address] Lab, Appv Lab Social History Tobacco Use Types Packs/Day Years Used Date Smoking Tobacco: Never Smokeless Tobacco: Never Alcohol Use Standard Drinks/Week Comments Not Currently 0 (1 standard drink = 0.6 oz pur e alcohol) [facility] Utilities Answer Date Recorded Do you have [...] st Contact Info) Description 10/14/2024 10:00 AM COLOR MAKING SUPERVISOR Telemedicine [place] [address] [place] [place] [phone] Rikki Hernandez MD [address] [place] [address] documented as of this encounter Procedures Procedure Name Priority Date/Time Associated Diagnosis Comments DE BLOOD COUNT COMPLETE AUTO&AUTO DIFRNTL WBC Routine 08/05/2024 11:34 AM COLOR MAKING SUPERVISOR Fatigue, unspecified type VITAMIN B6 BLOOD Routine 08/05/2024 11:2 2 AM COLOR MAKING SUPERVISOR Fatigue, unspecified type VITAMIN D 25 (DEFICIENCY) Routine 08/05/2024 11:22 AM COLOR MAKING SUPERVISOR Fatigue, unspecified type TSH Routine 08/05/2024 11:22 AM COLOR MAKING SUPERVISOR Fatigue, unspecified type EBV AB IGG IGM AND EBNA Routine 08/05/20 11:22 AM COLOR MAKING SUPERVISOR Fatigue, unspecified type IRON PLUS IRON BINDING CAP Routine 08/05/2024 11:22 AM COLOR MAKING SUPERVISOR Fatigue, unspecified type THYROPEROXIDASE ANTIBODY Routine 08/05/2024 11:22 AM COLOR MAKING SUPERVISOR Fatigue, unspecified type C-REACTIVE PROTEIN Routine 08/05/2024 11 :22 AM COLOR MAKING SUPERVISOR Fatigue, unspecified type URIC ACID Routine 08/05/2024 11:22 AM COLOR MAKING SUPERVISOR Fatigue, unspecified type T3,FREE Routine 08/05/2024 11:22 AM COLOR MAKING SUPERVISOR Fatigue, unspecified type T4,FREE Routine 08/05/2024 11:22 AM COLOR MAKING SUPERVISOR Fatigue, unspecified type TESTOSTERONE,TOTAL Routine 08/05/2024 11 :22 AM COLOR MAKING SUPERVISOR Fatigue, unspecified type PROGESTERONE Routine 08/05/2024 11:22 AM COLOR MAKING SUPERVISOR Fatigue, unspecified type HOMOCYSTEINE,TOTAL Routine 08/05/2024 11 :22 AM COLOR MAKING SUPERVISOR Fatigue, unspecified type FSH Routine 08/05/2024 11:22 AM COLOR MAKING SUPERVISOR Fatigue, unspecified type FERRITIN Routine 08/05/2024 11:22 AM COLOR MAKING SUPERVISOR Fatigue, unspecified type ESTRADIOL Routine 08/05/2024 11:22 AM COLOR MAKING SUPERVISOR Fatigue, unspecified type DHEA-SULFATE (DHEA-S) Routine 08/05/2024 11:22 AM COLOR MAKING SUPERVISOR Fatigue, unspecified type VITAMIN B12 Routine 08/05/2024 11:22 AM COLOR MAKING SUPERVISOR Fatigue, unspecified type COMP METABOLIC PANEL Routine 08/05/2024 11:22 AM COLOR MAKING SUPERVISOR Fatigue, unspecified type documented in this encounter Results * CBC AND DIFFERENTIAL (08/05/2024 11:34 AM COLOR MAKING SUPERVISOR) WHITE BLOOD CELL COUNT 5.3 3.8 - 10.8 Thousand/u L [facility] (U RED BLOOD CELL COUNT 4.28 3.80 - 5.10 Million/uL [facility] (U HEMOGLOBIN 13.5 11.7 - 15.5 g/dL [facility] (U HEMATOCRIT 40.4 35.0 - 45.0 % [facility] (U MCV 94.4 80.0 - 100.0 fL [facility] (U MCH 31.5 27.0 - 33.0 pg [facility] (U MCHC 33.4 32.0 - 36.0 g/dL [facility] (U Comment: For adults, a slight decrease in the calculated MCHC value (in the range of 30 to 32 g/dL) is most likely not clinically significant; however, it should be interpreted with caution in correlation with other red cell parameters and the patient's clinical condition. RDW 11.6 11.0 - 15.0 % [facility] (U PLATELET COUNT 219 140 - 400 Thousand/u L [facility] (U MPV 9.3 7.5 - 12.5 fL [facility] (U ABSOLUTE NEUTROPHILS 2,740 1,500 - 7,800 cells/uL [facility] (U ABSOLUTE LYMPHOCYTES 1,956 850 - 3,900 cells/uL [facility] (U ABSOLUTE MONOCYTES 504 200 - 950 cells/uL [facility] (U ABSOLUTE EOSINOPHILS 90 15 - 500 cells/uL [facility] (U ABSOLUTE BASOPHILS 11 0 - 200 cells/uL [facility] (U NEUTROPHILS 51.7 % [facility] (U LYMPHOCYTES 36.9 % [facility] (U MONOCYTES 9.5 % [facility] (U EOSINOPHILS 1.7 % [facility] (U BASOPHILS 0.2 % [facility] (U Blood BLOOD SPECIMEN / Unknown 08/05/2024 11:34 AM COLOR MAKING SUPERVISOR 08/05/2024 11:35 AM COLOR MAKING SUPERVISOR Narrative [facility] - 08/05/2024 12:03 PM COLOR MAKING SUPERVISOR SPLIT 08/05/2024 FROM [id number] us Rikki Hernandez MD HEMATOLOGY Final R esult [facility] [address] [facility] [place] [address], [facility] (U [address] [place] [address] * (ABNORMAL) EBV AB IGG IGM AND EBNA (08/05/2024 11:22 AM COLOR MAKING SUPERVISOR) EBV VIRAL CAPSID AG (VCA) AB (IGM) <36.00 U/mL [facility] Comment: ?U/mL ?Interpretation ?---- ?<36.00 ?Negative ?36.00-43.99 ? Equivocal ?>43.99 ?Positive EBV VIRAL CAPSID AG (VCA) AB (IGG) 102.00(H) U/mL [facility] Layne Comment: ? U/mL ? Interpretation ? ---- ? <18.00 ? Negative ? 18.00-21.99 ?Equivocal ? >21.99 ? Positive EBV NUCLEAR AG (EBNA) AB (IGG) 276.00(H) U/mL [facility] inessa Layne Comment: ? U/mL ? Interpretation ? ---- ? <18.00 ? Negative ? 18.00-21.99 ?Equivocal ? >21.99 ? 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 In infants, a similar pattern may occur as a result of passive maternal transfer of antibody. Blood BLOOD SPECIMEN / Unknown 08/05/2024 11:22 AM COLOR MAKING SUPERVISOR 08/05/2024 11:23 AM COLOR MAKING SUPERVISOR Narrative [facility] - 08/06/2024 12:30 PM COLOR MAKING SUPERVISOR MULTIPLE TESTING PRIORITIES; ROUTINE TESTING TO FOLLOW. Rikki Hernandez MD SEND OUTS Final R esult [facility] [address] [place] [address], [facility] [address] [place] [address] * COMP METABOLIC PANEL (08/05/2024 11:22 AM COLOR MAKING SUPERVISOR) [facility] GLUCOSE 81 65 - 99 mg/dL [facility] Comment: ? Fasting reference interval [...] BLOOD SPECIMEN / Unknown 08/05/2024 11:22 AM COLOR MAKING SUPERVISOR 08/05/2024 11:23 AM COLOR MAKING SUPERVISOR Narrative [facility] - 08/06/2024 6:07 AM COLOR MAKING SUPERVISOR MULTIPLE TESTING PRIORITIES; ROUTINE TESTING TO FOLLOW. Rikki Hernandez MD CHEMISTRY Final R esult Performing Organization Address City/[facility]/ZIP Co de Phone Number [facility] [address] [facility] [address], [place] [phone] [facility] [address] [place] [address] * C-REACTIVE PROTEIN (08/05/2024 11:22 AM COLOR MAKING SUPERVISOR) C-REACTIVE PROTEIN <3.0 <8.0 mg/L [facility] Blood BLOOD SPECIMEN / Unknown 08/05/2024 11:22 AM COLOR MAKING SUPERVISOR 08/05/2024 11:23 AM COLOR MAKING SUPERVISOR Narrative [facility] - 08/06/2024 10:21 AM COLOR MAKING SUPERVISOR MULTIPLE TESTING PRIORITIES; ROUTINE TESTING TO FOLLOW. us Rikki Hernandez MD CHEMISTRY Final R esult [facility] [address] [facility] [address], [place] [phone] [facility] [address] [facility] [place] [address] * HOMOCYSTEINE,TOTAL (08/05/2024 11:22 AM COLOR MAKING SUPERVISOR) HOMOCYSTEINE 6.4 <10.4 umol/L [facility] Comment: Homocysteine is increased by functional deficiency of folate or vitamin B12. Testing for methylmalonic acid differentiates between these deficiencies. Other causes of increased homocysteine include renal failure, folate antagonists such as methotrexate and phenytoin, and exposure to nitrous oxide. Zion Díaz, et al., Nettie Entrepreneur Med. 1999;131(5):331-9. Blood BLOOD SPECIMEN / Unknown 08/05/2024 11:22 AM COLOR MAKING SUPERVISOR 08/05/2024 11:23 AM COLOR MAKING SUPERVISOR Narrative [facility] - 08/06/2024 4:32 PM COLOR MAKING SUPERVISOR MULTIPLE TESTING PRIORITIES; ROUTINE TESTING TO FOLLOW. Rikki Hernandez MD CHEMISTRY Final R [facility] Performing Organization Address [facility] Co de Phone Number [facility] [address] [address], [facility] [address] [place] [address] * FERRITIN (08/05/2024 11:22 AM COLOR MAKING SUPERVISOR) [facility] FERRITIN 49 16 - 154 ng/mL [facility]Xavier Layne Blood BLOOD SPECIMEN / Unknown 08/05/2024 11:22 AM COLOR MAKING SUPERVISOR 08/05/2024 11:23 AM COLOR MAKING SUPERVISOR Narrative [facility] - 08/06/2024 4:32 AM COLOR MAKING SUPERVISOR MULTIPLE TESTING PRIORITIES; ROUTINE TESTING TO FOLLOW. Rikki Hernandez MD CHEMISTRY Final R esult Performing Organization Address [facility]/State/ZIP Co de Phone Number Igea [facility] [address] [place] [address], [facility] [address] [place] [address] * IRON PLUS IRON BINDING CAP (08/05/2024 11:22 AM COLOR MAKING SUPERVISOR) IRON, TOTAL 129 40 - 190 mcg/dL [facility] IRON BINDING CAPACITY 317 250 - 450 mcg/dL (calc) [facility] % SATURATION 41 16 - 45 % (calc) [facility] Blood BLOOD SPECIMEN / Unknown 08/05/2024 11:22 AM COLOR MAKING SUPERVISOR 08/05/2024 11:23 AM COLOR MAKING SUPERVISOR Narrative [facility] - 08/06/2024 6:07 AM COLOR MAKING SUPERVISOR MULTIPLE TESTING PRIORITIES; ROUTINE TESTING TO FOLLOW. Rikki Hernandez MD CHEMISTRY Final R esult Performing Organization Address City/[facility]/ZIP Co de Phone Number [facility] [address] [place] [address], [facility] [address] [facility] [place] [address] * T3,FREE (08/05/2024 11:22 AM COLOR MAKING SUPERVISOR) T3, FREE 3.3 2.3 - 4.2 pg/mL [facility] Blood BLOOD SPECIMEN / Unknown 08/05/2024 11:22 AM COLOR MAKING SUPERVISOR 08/05/2024 11:23 AM COLOR MAKING SUPERVISOR Narrative [facility] - 08/06/2024 4:32 AM COLOR MAKING SUPERVISOR MULTIPLE TESTING PRIORITIES; ROUTINE TESTING TO FOLLOW. Rikki Hernandez MD CHEMISTRY Final R esult [facility] [address] [place] [address], [place] [phone] [facility] [address] [place] [address] * T4,FREE (08/05/2024 11:22 AM COLOR MAKING SUPERVISOR) T4, FREE 1.3 0.8 - 1.8 ng/dL [facility] Blood BLOOD SPECIMEN / Unknown 08/05/2024 11:22 AM COLOR MAKING SUPERVISOR 08/05/2024 11:23 AM COLOR MAKING SUPERVISOR Narrative [facility] - 08/06/2024 4:32 AM COLOR MAKING SUPERVISOR MULTIPLE TESTING PRIORITIES; ROUTINE TESTING TO FOLLOW. Rikki Hernandez MD CHEMISTRY Final R esult Performing Organization Address City/[facility]/ZIP Co de Phone Number [facility] [employer] [facility] [address] [place] [address], [facility] [address] [place] [address] * (ABNORMAL) TESTOSTERONE,TOTAL (08/05/2024 11:22 AM COLOR MAKING SUPERVISOR) TESTOSTERONE, TOTAL, MS 51(H) 2 - 45 ng/dL [facility] Comment: For additional information, please refer to https://education.[employer]/faq/TotalTestosteroneLCMSMS (This link is being provided for informational/educational purposes only.) (Note) This test was developed and its analytical performance characteristics have been determined by [employer]. It has not been cleared or approved by the FDA. This assay has been validated pursuant to the CLIA regulations and is used for clinical purposes. [facility] [address] [place] [address],[address] [place] [address] Amelia Watson MD, PhD Blood BLOOD SPECIMEN / Unknown 08/05/2024 11:22 AM COLOR MAKING SUPERVISOR 08/05/2024 11:23 AM COLOR MAKING SUPERVISOR Narrative [facility] - 08/08/2024 9:43 PM COLOR MAKING SUPERVISOR MULTIPLE TESTING PRIORITIES; ROUTINE TESTING TO FOLLOW. Rikki Hernandez MD CHEMISTRY Final R esult [facility] [address] [place] [address], [facility] [address] [place] [address], [address] [place] [address] * TSH (08/05/2024 11:22 AM COLOR MAKING SUPERVISOR) TSH 0.54 mIU/L [facility] Comment: ?Reference Range ?> or = 20 Years ??0.40-4.50 ? Ranges ?First trimester ?0.26-2.66 ?Second trimester ?? 0.55-2.73 ?Third trimester ?0.43-2.91 Blood BLOOD SPECIMEN / Unknown 08/05/2024 11:22 AM COLOR MAKING SUPERVISOR 08/05/2024 11:23 AM COLOR MAKING SUPERVISOR Narrative [facility] - 08/06/2024 4:32 AM COLOR MAKING SUPERVISOR MULTIPLE TESTING PRIORITIES; ROUTINE TESTING TO FOLLOW. Rikki Hernandez MD CHEMISTRY Final R esult Performing Organization Address [facility] de Phone Number [facility] [employer] [facility] [address] [place] [address], [place] [phone] [facility] [address] [place] [address] * THYROPEROXIDASE ANTIBODY (08/05/2024 11:22 AM COLOR MAKING SUPERVISOR) THYROID PEROXIDASE ANTIBODIES <1 <9 IU/mL [facility]- kathleen Layne Blood BLOOD SPECIMEN / Unknown 08/05/2024 11:22 AM COLOR MAKING SUPERVISOR 08/05/2024 11:23 AM COLOR MAKING SUPERVISOR Narrative [facility] - 08/06/2024 12:08 PM COLOR MAKING SUPERVISOR MULTIPLE TESTING PRIORITIES; ROUTINE TESTING TO FOLLOW. Rikki Hernandez MD SEND OUTS Final R esult Performing Organization Address [facility]/ZIP Co de Phone Number Igea [facility] [address] [place] [address], [place] [phone] [facility] [address] [place] [address] * URIC ACID (08/05/2024 11:22 AM COLOR MAKING SUPERVISOR) [facility] URIC ACID 4.1 2.5 - 7.0 mg/dL [facility] k[facility]leen Roverto Comment: Therapeutic target for gout patients: <6.0 mg/dL ?? Blood BLOOD SPECIMEN / Unknown 08/05/2024 11:22 AM COLOR MAKING SUPERVISOR 08/05/2024 11:23 AM COLOR MAKING SUPERVISOR Narrative [facility] - 08/06/2024 6:07 AM COLOR MAKING SUPERVISOR MULTIPLE TESTING PRIORITIES; ROUTINE TESTING TO FOLLOW. Rikki Hernandez MD CHEMISTRY Final R esult Performing Organization Address [facility]/ZIP Co de Phone Number Igea [facility] [address] [place] [address], [facility] [address] [place] [address] * VITAMIN B12 (08/05/2024 11:22 AM COLOR MAKING SUPERVISOR) [facility] VITAMIN B12 401 200 - 1,100 pg/mL I[facility]inderBhavna Layne Blood BLOOD SPECIMEN / Unknown 08/05/2024 11:22 AM COLOR MAKING SUPERVISOR 08/05/2024 11:23 AM COLOR MAKING SUPERVISOR Narrative [facility] - 08/06/2024 4:32 AM COLOR MAKING SUPERVISOR MULTIPLE TESTING PRIORITIES; ROUTINE TESTING TO FOLLOW. Rikki Hernandez MD CHEMISTRY Final R esult Performing Organization Address City/[facility]/ZIP Co de Phone Number Igea [facility] [address] [place] [address], [facility] [address] [place] [address] * VITAMIN B6 BLOOD (08/05/2024 11:22 AM COLOR MAKING SUPERVISOR) [facility] VITAMIN B6, PLASMA 12.3 2.1 - 21.7 ng/mL [facility] Comment: (Note) Vitamin supplementation within 24 hours prior to blood draw may affect the accuracy of results. This test was developed and its analytical performance characteristics have been determined by [facility]. It has not been cleared or approved by the FDA. This assay has been validated pursuant to the CLIA regulations and is used for clinical purposes. [facility] [address] [facility] [address] [place] [address] Amelia Watson MD, PhD Blood BLOOD SPECIMEN / Unknown 08/05/2024 11:22 AM COLOR MAKING SUPERVISOR 08/05/2024 11:23 AM COLOR MAKING SUPERVISOR Narrative [facility] - 08/08/2024 7:01 PM COLOR MAKING SUPERVISOR MULTIPLE TESTING PRIORITIES; ROUTINE TESTING TO FOLLOW. us Rikki Hernandez MD CHEMISTRY Final R esult [facility] [address] [place] [address], [facility] [address] [place] [address], [address] [place] [address] * VITAMIN D 25 (DEFICIENCY) (08/05/2024 11:22 AM COLOR MAKING SUPERVISOR) Pathologist [facility] VITAMIN D,25-OH,TOTAL,IA 47 30 - 100 ng/mL [facility]Gurjit Layne Comment: Vitamin D Status ? 25-OH Vitamin D: Deficiency: ?<20 ng/mL Insufficiency: ? 20 - 29 ng/mL Optimal: ? > or = 30 ng/mL For 25-OH Vitamin D testing on patients on D2-supplementation and patients for whom quantitation of D2 and D3 fractions is required, the OptiNoseAssureD(TM) 25-OH VIT D, (D2,D3), LC/MS/MS is recommended: order code 05537 (patients >2yrs). See Note 1 Note 1 For additional information, please refer to http://education.[employer].pic5/faq/XPX875 (This link is being provided for informational/ educational purposes only.) Blood BLOOD SPECIMEN / Unknown 08/05/2024 11:22 AM COLOR MAKING SUPERVISOR 08/05/2024 11:23 AM COLOR MAKING SUPERVISOR Narrative [facility] - 08/06/2024 4:32 AM COLOR MAKING SUPERVISOR MULTIPLE TESTING PRIORITIES; ROUTINE TESTING TO FOLLOW. Rikki Hernandez MD SEND OUTS Final R esult Performing Organization Address [facility] Co de Phone Number Igea [facility] [address] [place] [address], [facility] [address] [place] [address] * DHEA-SULFATE (DHEA-S) (08/05/2024 11:22 AM COLOR MAKING SUPERVISOR) DHEA SULFATE 178 19 - 237 mcg/dL [facility]Bhavna Layne Blood BLOOD SPECIMEN / Unknown 08/05/2024 11:22 AM COLOR MAKING SUPERVISOR 08/05/2024 11:23 AM COLOR MAKING SUPERVISOR Narrative [facility] - 08/06/2024 4:32 AM COLOR MAKING SUPERVISOR MULTIPLE TESTING PRIORITIES; ROUTINE TESTING TO FOLLOW. Rikki Hernandez MD SEND OUTS Final R esult Performing Organization Address [facility] Co de Phone Number Igea [facility] [address] [place] [address], I[facility]inderRamírez Layne [address] [place] [address] * ESTRADIOL (08/05/2024 11:22 AM COLOR MAKING SUPERVISOR) ESTRADIOL 103 pg/mL [facility]-W soheilakathleen Layne Comment: ?Reference Range ?Follicular Phase: ?19-144 ?Mid-Cycle: ? 64-357 ?Luteal Phase: ?56-214 ?Postmenopausal: ?< or = 31 ? Reference range established on post-pubertal patient population. No pre-pubertal reference range established using this assay. For any patients for whom low Estradiol levels are anticipated (e.g. males, pre-pubertal children and hypogonadal/post-menopausal females), the [facility] Estradiol, Ultrasensitive, LCMSMS assay is recommended (order code 24610). ?? Please note: patients being treated with the drug fulvestrant (Faslodex(R)) have demonstrated significant interference in immunoassay methods for estradiol measurement. The cross reactivity could lead to falsely elevated estradiol test results leading to an inappropriate clinical assessment of estrogen status. [facility] order code [id number], Ultrasensitive LC/MS/MS demonstrates negligible cross reactivity with fulvestrant. Blood BLOOD SPECIMEN / Unknown 08/05/2024 11:22 AM COLOR MAKING SUPERVISOR 08/05/2024 11:23 AM COLOR MAKING SUPERVISOR Narrative [facility] - 08/06/2024 5:44 AM COLOR MAKING SUPERVISOR MULTIPLE TESTING PRIORITIES; ROUTINE TESTING TO FOLLOW. us Rikki Hernandez MD SEND OUTS Final R esult [facility] [address] [place] [address], [facility] [address] [place] [address] * PROGESTERONE (08/05/2024 11:22 AM COLOR MAKING SUPERVISOR) PROGESTERONE <0.5 ng/mL [facility]- inessa Layne Comment: ?Reference Ranges ? Female ?Follicular Phase ? < 1.0 ?Luteal Phase ?2.6-21.5 ?Post menopausal ?< 0.5 ?1st Trimester ? 4.1-34.0 ?2nd Trimester ?24.0-76.0 ?3rd Trimester ?? 52.0-302.0 Blood BLOOD SPECIMEN / Unknown 08/05/2024 11:22 AM COLOR MAKING SUPERVISOR 08/05/2024 11:23 AM COLOR MAKING SUPERVISOR Narrative [facility] - 08/06/2024 4:32 AM COLOR MAKING SUPERVISOR MULTIPLE TESTING PRIORITIES; ROUTINE TESTING TO FOLLOW. Rikki Hernandez MD SEND OUTS Final R esult Performing Organization Address [facility] de Phone Number [facility] [address] [place] [address], [facility] [address] [place] [address] * FSH (08/05/2024 11:22 AM COLOR MAKING SUPERVISOR) FSH 5.2 mIU/mL [facility]-W inessa Layne Comment: ?Reference Range ? Follicular Phase ? 2.5-10.2 ? Mid-cycle Peak ? 3.1-17.7 ? Luteal Phase ? 1.5- 9.1 ? Postmenopausal ? 23.0-116.3 ? Blood BLOOD SPECIMEN / Unknown 08/05/2024 11:22 AM COLOR MAKING SUPERVISOR 08/05/2024 11:23 AM COLOR MAKING SUPERVISOR Narrative [facility] - 08/06/2024 4:32 AM COLOR MAKING SUPERVISOR MULTIPLE TESTING PRIORITIES; ROUTINE TESTING TO FOLLOW. Rikki Hernandez MD CHEMISTRY Final R esult Performing Organization Address [facility] de Phone Number Igea [facility] [address] [place] [address], [facility] [address] [place] [address] documented in this encounter Visit Diagnoses Diagnosis Fatigue, unspecified type documented in this encounter Care Teams Machine Scallop Cutter Relationship Specialty [place] [address] [place] [address] PCP - General Internal Medicine 03/19/24 documented as of this encounter
--- OUTSIDE RECORDS SUMMARY | 2024-08-28 02:37 | XMS_ITS ---
Author Organization [facility] Address [address] [facility] , [address] [place] [address] Phone Care Team Providers Care Package Yarns Drying Machine Operator Name Role Phone Juan David Mckeon MD Unavailable [phone] Conditions or Problems Problem Name Problem Code Onset Date Status Entry Date Provider Comment Standard Description Annotate Low ferritin R79.0 (ICD-10-CM) Active Juan David Mckeon MD Abnormal level of blood mineral Palpitations 92379772 (SNOMED CT) Active Juan David Mckeon MD Palpitations Dysautonomia 83206669 (SNOMED CT) Active Juan David Mckeon MD Disorder of autonomic nervous system Cervicogenic headache 092232507 (SNOMED CT) Active Juan David Mckeon MD Cervicogenic headache Paresthesia 32500121 (SNOMED CT) Active Juan David Mckeon MD Paresthesia Medications No information available. Medications Administered No information available. 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
--- OUTSIDE RECORDS SUMMARY | 2024-08-28 02:37 | XMS_ITS | Clinical Summary ---
Author Organization [facility] Address [address] , [address] [place] [address] Phone Care Team Providers Care Bevel Face Stoner And Polisher Name Role Phone [facility] Unavailable Unava ilable Conditions or Problems Problem Name Problem Code Onset Date Status Entry Date Provider Comment Standard Description Annotate Low ferritin R79.0 (ICD-10-CM) Active Juan David Mckeon MD Abnormal level of blood mineral Palpitations 72892785 (SNOMED CT) Active Juan David Mckeon MD Palpitations Dysautonomia 93312495 (SNOMED CT) Active Juan David Mckeon MD Disorder of autonomic nervous system Cervicogenic headache [id number] (SNOMED CT) Active Juan David Mckeon MD Cervicogenic headache Paresthesia [id number] (SNOMED CT) Active Juan David Mckeon MD Paresthesia Medications No information available. Medications Administered No information available. 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
--- OUTSIDE RECORDS SUMMARY | 2024-08-28 02:37 | XMS_ITS ---
Author Organization [facility] Address [address] [place] [address] , [address] [place] [address] Phone Care Team Providers Care Heavy Duty Press Operator Name Role Phone Juan David Mckeon MD Unavailable [phone] Conditions or Problems No information available. Medications No information available. Medications Administered No information available. Allergies, Adverse Reactions, Alerts No information available. Results No information available. Plan of Care No information available. Procedures No information available. Vital Signs No information available. Immunizations No information available. Advance Directives No information available.
== END 2024-08-21 05:53 | disposition home or self-care (01) ==
PROVIDERS: Emergency Provider Emergency Medicine
DX: K59.00 Constipation, unspecified (principal)
CPT/HCPCS: 36415; 74177; 80053; 81001; 81025; 83690; 85025; 87077; 87086; 87186; 96361; 96372; 96374; 99285; J0500; J1885; J7030; Q9967